=== PATIENT | male | born 1945 | race Caucasian/White ===

== ENCOUNTER → 2017-09-25 | Outpatient (CLI) | payer MEDICARE | END | disposition home or self-care (01) | LOC: LAB 11:49 | PROVIDERS: ATTEND Psychiatry & Neurology Neurology | DX: R41.3 Other amnesia (principal); R79.89 Other specified abnormal findings of blood chemistry | CPT/HCPCS: 80061; 84481 ==

== ENCOUNTER → 2017-10-02 | Outpatient (CLI) | payer MEDICARE ==
--- NOTE | 2017-10-02 16:47 | RAD ---
EXAM: Bilateral knees, 3 views. HISTORY: Pain. COMPARISON: None. FINDINGS: Frontal, lateral and sunrise views of both knees are obtained. There is minimal superior patellar spurring. There is a suspected intra-articular osteophyte arising from the left anterior tibial plateau, best seen on the lateral projection. No significant joint effusion is seen. There is no fracture, dislocation or subluxation. IMPRESSION: 1. Minimal bilateral patellofemoral compartment osteoarthritis and suspected left intra-articular osteophyte projecting from the anterior tibial plateau. 2. No acute osseous finding. Electronically signed by: Sofie Moffett MD (10/02/2017 4:43 PM) [facility]
== END | disposition home or self-care (01) ==
LOC: RAD 16:11
PROVIDERS: ATTEND Orthopaedic Surgery Sports Medicine
DX: M17.0 Bilateral primary osteoarthritis of knee (principal)
CPT/HCPCS: 73562

== ENCOUNTER → 2019-10-01 | Outpatient (CLI) | payer MEDICARE ==
--- NOTE | 2019-10-01 15:25 | CARD ---
MR#: [id number] Date of Study: 10/01/2019 Ordering Physician: MARISOL GARIBAY, Referring Physician: MARISOL GARIBAY, Tech: Zoya Cazares RDCS APPROVED REPORT EXAM: Two-dimensional and M-mode echocardiogram with Doppler and color Doppler. Other Information Quality : Good Rhythm : NSR INDICATION Syncope 2D DIMENSIONS Left Atrium(2D)2.7 (1.6-4.0cm)IVSd0.7 (0.7-1.1cm) Aortic Root(2D)2.0 (2.0-3.7cm)LVDd4.1 (3.9-5.9cm) LVOT Diameter1.6 (1.8-2.4cm)PWd0.7 (0.7-1.1cm) LVDs2.3 (2.5-4.0cm)FS (%) 43.0 % SV54.5 mlLVEF(%)60.0 (>50%) Aortic Valve AoV Peak Von.134.1cm/sAoV VTI22.5cm AO Peak GR.7.2mmHgLVOT Peak Von.120.3cm/s LVOT VTI 21.42cmAO Mean GR.3mmHg OSWALDO (VMAX)1.46nt7REU (VTI)1.89cm2 Mitral Valve MV E Qxlvpaea48.0cm/sMV DECEL NZMA761rm MV A Bltciawn05.6cm/sE/A Ratio0.8 Tricuspid Valve TR P. Uqnltlox596vi/sRAP IZANRXHI2cjPf TR Peak Gr.16xjWtXHWV29wxHs Pulmonary Vein S1 Omahteou80.7cm/sD2 Xvhdlbiv83.9cm/s LEFT VENTRICLE The left ventricle is normal size. There is normal left ventricular wall thickness. The left ventricu lar systolic function is normal and the ejection fraction is within normal range. The Ejection Fracti on is 55-60%. There is normal LV segmental wall motion. Transmitral Doppler flow pattern is Grade I-a bnormal relaxation pattern. RIGHT VENTRICLE The right ventricle is normal size. The right ventricular systolic function is normal. ATRIA The left atrium size is normal. The right atrium size is normal. The interatrial septum is intact wit h no evidence for an atrial septal defect or patent foramen ovale as noted on 2-D or Doppler imaging. AORTIC VALVE The aortic valve is calcified but opens well. Doppler and Color Flow revealed no significant aortic r egurgitation. There is no significant aortic valvular stenosis. MITRAL VALVE The mitral valve is calcified but opens well. Mitral annular calcification is mild. There is no evide nce of mitral valve prolapse. There is no mitral valve stenosis. Doppler and Color-flow revealed mild mitral regurgitation. TRICUSPID VALVE The tricuspid valve is normal in structure and function. Doppler and Color Flow revealed trace to mil d tricuspid regurgitation. The PA pressure was estimated at 27 mmHg. There is no tricuspid valve sten osis. PULMONIC VALVE The pulmonic valve is not well visualized. Doppler and Color Flow revealed trace to mild pulmonic tena vular regurgitation. There is no pulmonic valvular stenosis. GREAT VESSELS The aortic root is normal in size. The ascending aorta is not well seen. The IVC is normal in size an d collapses >50% with inspiration. PERICARDIAL EFFUSION There is no evidence of significant pericardial effusion. Critical Notification Critical Value: No <Conclusion> The left ventricular systolic function is normal and the ejection fraction is within normal range. Th e Ejection Fraction is 55-60%. There is normal LV segmental wall motion. Doppler and Color Flow revealed trace to mild pulmonic valvular regurgitation. Signed by : Chivo Moreno, Electronically Approved : 10/01/2019 15:25:12
--- NOTE | 2019-10-01 15:45 | RAD ---
Clinical Indications: Syncope. Exam : Carotid Duplex with Grayscale Ultrasound and Spectral and Color Doppler Analysis: PQRS Compliance Statement - Stenosis calculations for CT, MR and conventional angiography are based upon measurement of the distal ICA diameter in accordance with the NASCET methodology. Stenosis calculations for carotid ultrasound studies are derived from validated velocity criteria which are known to correlate with the NASCET methodology. Comparison study: None available. Findings: The common, internal and external carotid arteries were examined by grayscale, color and spectral Doppler ultrasound. There is no evidence of atherosclerotic disease or significant stenosis in the visualized vessels. Flow in the left vertebral artery is antegrade and normal. The right vertebral artery was not well visualized. The following are the velocities and ratios in the carotid arteries on both sides: RIGHT ICA PV: 80cm/sec RIGHT CCA PV: 103cm/sec RIGHT ICA ED: 26cm/sec RIGHT IC/CCPV: 0.8 RIGHT VERTEBRAL: antegrade flow RIGHT % STENOSIS: No significant stenosis. LEFT ICA PV: 92cm/sec LEFT CCA PV: 71cm/sec LEFT ICA ED: 20cm/sec LEFT IC/CCPV: 1.2 LEFT VERTEBRAL: antegrade flow LEFT % STENOSIS: No significant stenosis <50% ICA Stenosis: PSV < 125cm/s (EDV < 40cm/s; SVR < 2.0) 50-69% ICA Stenosis: PSV < 125-229cm/s (EDV 40-99cm/s; SVR 2.0-3.9) >70% ICA Stenosis: PSV > 230cm/s (EDV >100cm/s; SVR >4.0) Impression: 1. No carotid dissection or hemodynamically significant stenosis is identified. 2. Likely normal variant low lying bifurcation of the right common carotid artery. 3. Nonvisualized right vertebral artery. Recommend CT angiography of the neck and head in further evaluation. Electronically signed by: Jose Edge MD (10/01/2019 3:42 PM) [id number]
== END | disposition home or self-care (01) ==
LOC: ECHO 14:06
PROVIDERS: ATTEND Family Medicine
DX: I08.8 Other rheumatic multiple valve diseases (principal); R55 Syncope and collapse
CPT/HCPCS: 93306; 93880

== ENCOUNTER 2020-06-05 21:16 | Emergency (ER) | payer MEDICARE ==
[~2020-06-05] VITALS: Ht 165.1 cm; Wt 57.7 kg
--- NOTE | 2020-06-05 21:18 | PHYS DOC ---
General Adult HPI: HPI: ".. He had another one of his spells .. we were watching [employer].. and all sudden he was looking up and off to the Lt. and did not answer me.. he had these before... some times he vomits afterwards... it lasted a few seconds.. we 've seen two different neurologist... they gave a diagnosis of Alzheimer's... And is on 2 meds for it... I does not seem to be helping... He had a diagnosis clinically 2 years ago but had symptoms at least 2 years before that.... He is incontinent of urine and stool.. is getting too much for me the handle ...I need to see if there is any way we can get him placed in a mcfp.;. maybe get up at the hospital in the senior behavioral unit..... On top of all his problems... I have had Covid symptoms since February... I brought him in [facility] to get him admitted to that senior behavioral unit... ( ) Patient is a 75 year old male who presents with above hx and complaints absence episode. Pt. apparently has advanced Alzheimer's. Did not know the season of the year other than that was not summer. Patient does not know the year. Patient does not know the month. Patient cannot count backwards from 25... Patient still knows his name. Does not know his birthday. Knows why he is here for a "episode", but does not know where he is at. No history of dysrhythmia with the absence episode. Patient has no pain complaints. Patient reportedly incontinent of urine and stool chronically.. . No history of trauma. 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 No recent falls. Is still ambulatory. No recent changes in meds. No recent fever or chills. No specific travel or specific ill contacts. 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 has had COVID symptoms since diagnosis in 2019. Pt. follows with Dr. Bruner Review of Systems: Review of Systems: Constitutional: Denies fever or chills Eyes: Denies change in visual acuity HENT: Denies nasal congestion or sore throat Respiratory: Denies cough or shortness of breath Cardiovascular: Denies chest pain or edema GI: Denies abdominal pain, nausea, vomiting, bloody stools or diarrhea : Denies dysuria Musculoskeletal: Denies back pain or joint pain Integument: Denies rash Neurologic: Denies headache, focal weakness or sensory changes . Complains of an absence episode Endocrine: Denies polyuria or polydipsia Lymphatic: Denies swollen glands Psychiatric: Denies depression or anxiety Family History: Family History: Noncontributory to presentation Current Medications: Current Meds: See nursing for home meds Allergies: Allergies: No known drug allergies Physical Exam: PE: Constitutional: no acute distress, chronically ill and appearance. [] HENT: Normocephalic, atraumatic, bilateral external ears normal, oropharynx dry , no oral exudates, nose normal. No temporal artery tenderness Eyes: PERRLA, EOMI, conjunctiva normal, no discharge. [] Neck: Normal range of motion, no tenderness, supple, no stridor. [] No bruits. Cardiovascular: Bradycardia heart rate regular rhythm, no murmur [] p.m. eyes slightly to the left Lungs & Thorax: Bilateral breath sounds equal at apex on auscultation [] Abdomen: Bowel sounds normal, soft, no tenderness, no masses, no pulsatile masses. Has a diaper incontinence of urine and stool Skin: Warm, dry, no erythema, no rash. Poor turgor Back: No tenderness, no CVA tenderness. Mild kyphosis Extremities: No tenderness, no cyanosis, no clubbing, ROM intact, no edema. Arthritic changes. No cording appreciated. Few chacha point contusion knees.. Neurologic: Alert and oriented name, recognizes his , moves all extremities on request, has distal sensory, no focal deficits noted. Hyperreflexia at brachial and patella +3 with 2 beat clonus. Right hand dominant. Is ambulatory independently with patient slight shuffling gait. Psychologic: Affect normal, judgement obviously impaired, obvious memory loss,, mood pleasant EKG: EKG: My interpretation of EKG shows a sinus rhythm at 58 bpm. Left axis. Fascicular block. But no findings acute STEMI with contralateral changes. [] Radiology/Procedures: Radiology/Procedures: [address] [address] IMAGING REPORT Signed PATIENT: SABIHA CHOUDHARY ACCOUNT: [id number] : 1945 LOCATION: ER AGE: 75 SEX: M EXAM STATUS: PRE ER ORD. PHYSICIAN: LON FITZPATRICK MD REASON: syncope PROCEDURE: PORTABLE CHEST 1V Exam: Chest one view INDICATION: Syncope TECHNIQUE: Dental view of the chest Comparisons: None FINDINGS: The cardiomediastinal silhouette and pulmonary vessels are within normal limits. The lung and pleural spaces are clear. IMPRESSION: No acute cardiopulmonary process. Electronically signed by: Annie Chávez MD (06/05/2020 10:08 PM) [facility] DICTATED AND SIGNED BY: ANNIE CHÁVEZ MD DATE: 06/05/202207 CC: MARISOL BRUNER MD; LON FITZPATRICK MD ~MTH0 0 [][address] [address] IMAGING REPORT Signed PATIENT: SABIHA CHOUDHARY ACCOUNT: [id number] : 1945 LOCATION: ER AGE: 75 SEX: M EXAM STATUS: PRE ER ORD. PHYSICIAN: LON FITZPATRICK MD REASON: syncope PROCEDURE: CT HEAD WO CONTRAST Exam: CT head INDICATION: Syncope TECHNIQUE: Sequential axial images through the head were obtained without the administration of IV contrast. Comparisons: None FINDINGS: No focal parenchymal lesion or hemorrhage is identified. There is no midline shift or sulcal effacement. Mild patchy hypodensity in the periventricular white matter. No acute vascular territory infarction is identified. Acevedo-white distinction is preserved. The ventricular system is within normal limits without compression hydrocephalus. The basal cisterns are well maintained. The visualized portions of the paranasal sinuses and mastoid air cells are well- pneumatized. No acute fractures. IMPRESSION: Mild small vessel ischemic change, technically age indeterminate without recent prior imaging. Exposure: One or more of the following in the visualized dose reduction techniques were utilized for this examination: 1. Automated exposure control 2. Adjustment of the MA and/or KV according to patient size Use of iterative of reconstructive technique Electronically signed by: Annie Chávez MD (06/05/2020 10:08 PM) [facility] DICTATED AND SIGNED BY: ANNIE CHÁVEZ MD DATE: 06/05/202205 CC: MARISOL BRUNER MD; LON FITZPATRICK MD ~MTH0 0 Heart Score: HEART Score for Chest Pain: HEART Score for Chest Pain Response (Comments) Value History Slighlty/Non-Suspicious 0 ECG Normal 0 Age > 65 2 Risk Factors 1 or 2 Risk Factors 1 Troponin < Normal Limit 0 Total 3 Risk Factors: Risk Factors: DM, Current or recent (<one month) smoker, HTN, HLP, family history of CAD, obesity. Risk Scores: Score 0 - 3: 2.5% MACE over next 6 weeks - Discharge Home Score 4 - 6: 20.3% MACE over next 6 weeks - Admit for Clinical Observation Score 7 - 10: 72.7% MACE over next 6 weeks - Early Invasive Strategies Course & Med Decision Making: Course & Med Decision Making Pertinent Labs and Imaging studies reviewed. (See chart for details) Recommend increase fluid intake and vitamins C drinks. Take Cipro 500 mg twice a day. Follow-up urine cultures. Review ED work-up with primary care. Consider obtaining additional home help or consider mcfp placement care if demands of patient's care to great.. Impression: 1. Absence seizures 2. Mild leukocytosis 12.9 3. Mild anemia 11.3 hemoglobin 4. Mild dehydration elevated creatinine 1.6 5. Urinary tract infection 6. Advanced Alzheimer's-by history 7. Mild elevation D-dimer 0.74 [] Margaret Disclaimer: Margaret Disclaimer: This electronic medical record was generated, in whole or in part, using a voice recognition dictation system. Departure Departure: Referrals: MARISOL BRUNER MD (PCP) Scripts Ondansetron Hcl (ZOFRAN) 4 Mg Tablet 8 MG PO QIDPRN PRN for NAUSEA/VOMITING, #1 TAB Prov: LON FITZPATRICK MD 06/06/20 Famotidine (PEPCID) 20 Mg Tablet 20 MG PO QIDPRN PRN for nv, #30 TAB Prov: LON FITZPATRICK MD 06/06/20 Ciprofloxacin Hcl (CIPRO) 500 Mg Tablet 500 MG PO BID for UTI for 7 Days, #14 TAB Prov: LON FITZPATRICK MD 06/06/20 Dragon Disclaimer This chart was dictated in whole or in part using Voice Recognition software in a busy, high-work load, and often noisy Emergency Department environment. It may contain unintended and wholly unrecognized errors or omissions. Dragon Disclaimer This chart was dictated in whole or in part using Voice Recognition software in a busy, high-work load, and often noisy Emergency Department environment. It may contain unintended and wholly unrecognized errors or omissions. LON FITZPATRICK MD Jun 05, 2020 21:18
[2020-06-05] MEDS ORDERED: IV RINGERS SOLUTION,LACTATED 1,000 ML IV SCH (21:30)
--- NOTE | 2020-06-05 22:10 | RAD ---
Exam: CT head INDICATION: Syncope TECHNIQUE: Sequential axial images through the head were obtained without the administration of IV co ntrast. Comparisons: None FINDINGS: No focal parenchymal lesion or hemorrhage is identified. There is no midline shift or sulcal effaceme nt. Mild patchy hypodensity in the periventricular white matter. No acute vascular territory infarction i s identified. Acevedo-white distinction is preserved. The ventricular system is within normal limits without compression hydrocephalus. The basal cisterns are well maintained. The visualized portions of the paranasal sinuses and mastoid air cells are well-pneumatized. No acute fractures. IMPRESSION: Mild small vessel ischemic change, technically age indeterminate without recent prior imaging. Exposure: One or more of the following in the visualized dose reduction techniques were utilized for this examination: 1. Automated exposure control 2. Adjustment of the MA and/or KV according to patient size Use of iterative of reconstructive technique Electronically signed by: Annie Medina MD (06/05/2020 10:08 PM) [facility]
--- NOTE | 2020-06-05 22:11 | RAD ---
Exam: Chest one view INDICATION: Syncope TECHNIQUE: Dental view of the chest Comparisons: None FINDINGS: The cardiomediastinal silhouette and pulmonary vessels are within normal limits. The lung and pleural spaces are clear. IMPRESSION: No acute cardiopulmonary process. Electronically signed by: Annie Medina MD (06/05/2020 10:08 PM) [facility]
[2020-06-05 22:40] LABS: BASO # 0.1 x10^3/uL (0.0-0.2); BASO % 0 % (0-3); EOS # 0.1 x10^3/uL (0.0-0.7); EOS % 0 % (0-3); HEMATOCRIT 34.7 % (39.0-53.0); HEMOGLOBIN 11.3 g/dL (13.0-17.5); LYMPH # 0.7 x10^3/uL (1.0-4.8); LYMPH % 6 % (24-48); MEAN CORPUSCULAR HEMOGLOBIN 30 pg (25-35); MEAN CORPUSCULAR HGB CONC 33 g/dL (31-37); MEAN CORPUSCULAR VOLUME 93 fL (79-100); MONO # 0.5 x10^3/uL (0.0-1.1); MONO % 4 % (0-9); NEUT # 11.5 x10^3uL (1.8-7.7); NEUT % 89 % (31-73); PLATELET COUNT 296 x10^3/uL (140-400); RED BLOOD COUNT 3.73 x10^6/uL (4.30-5.70); RED CELL DISTRIBUTION WIDTH 14.4 % (11.5-14.5); WHITE BLOOD COUNT 12.9 x10^3/uL (4.0-11.0)
[2020-06-05 22:50] LABS: BACTERIA,URINE FEW /HPF (0-FEW); BILIRUBIN,URINE NEG (NEG); CLARITY,URINE CLEAR; COLOR,URINE YELLOW; GLUCOSE,URINE NEG (NEG); NITRITE,URINE NEG (NEG); RBC,URINE OCC /HPF (0-2); SQUAMOUS EPITHELIAL CELL,UR FEW /LPF
[2020-06-05 22:57] LABS: BARBITURATES NEG (NEG); BENZODIAZEPINES NEG (NEG); CANNABINOIDS NEG (NEG); COCAINE NEG (NEG); METHADONE NEG (NEG); OPIATES NEG (NEG); PHENCYCLIDINE NEG (NEG)
[2020-06-05 22:58] LABS: ANION GAP 8 (6-14); BLOOD UREA NITROGEN 26 mg/dL (8-26); CALCIUM 8.7 mg/dL (8.5-10.1); CARBON DIOXIDE 30 mmol/L (21-32); CHLORIDE 103 mmol/L (98-107); CREATININE 1.6 mg/dL (0.7-1.3); GFR 42.6; GLUCOSE 92 mg/dL (70-99); POTASSIUM 4.5 mmol/L (3.5-5.1); SODIUM 141 mmol/L (136-145)
[2020-06-05 23:03] LABS: AMPHETAMINE/METHAMPHETAMINE NEG (NEG)
[2020-06-05 23:16] LABS: ALBUMIN 3.4 g/dL (3.4-5.0); ALK PHOS 95 U/L (46-116); ALT (SGPT) 32 U/L (16-63); AST (SGOT) 21 U/L (15-37); C REACTIVE PROTEIN 7.4 mg/L (0-3.3); DIRECT BILIRUBIN 0.3 mg/dL (0.0-0.2); LIPASE 163 U/L (73-393); TOTAL PROTEIN 7.1 g/dL (6.4-8.2)
--- NOTE | 2020-06-05 23:26 | EKG ---
[address] [address] Test Date: 2020-06-05 Test Time: 22:21:23 Pat Name: SABIHA CHOUDHARY Department: Room: Gender: M Disabilities Caregiver: : 1945 Requested By: LON FITZPATRICK Order Number: [id number] Reading MD: Measurements Intervals [place] Rate: 58 P: 45 WI: 186 QRS: -49 QRSD: 94 T: 55 QT: 428 QTc: 424 Interpretive Statements SINUS RHYTHM ABNORMAL LEFT AXIS DEVIATION LEFT ANTERIOR FASCICULAR BLOCK ABNORMAL ECG RI6.01 No previous ECG available for comparison
[2020-06-06] MEDS ORDERED: CIPR500T94 PO (00:08)
[2020-06-06 00:30] VITALS: BP 150/64
[2020-06-06] MEDS ORDERED: FAMO-63 PO (00:58)
[2020-06-06] MEDS ORDERED: ONDA4TAB7 PO (00:59)
[2020-06-06] MEDS ORDERED: ONDANSETRON ODT 4 MG TAB.RAPDIS PO ONE (01:00)
[2020-06-06] MEDS ORDERED: ONDANSETRON ODT 4 MG TAB.RAPDIS PO PRN (01:00)
[2020-06-06] MEDS ORDERED: CIPROFLOXACIN HCL 500 MG TABLET PO ONE (01:00)
== END 2020-06-06 01:00 | disposition home or self-care (01) ==
LOC: ER 21:16
DX: N39.0 Urinary tract infection, site not specified (principal); G40.A09 Absence epileptic syndrome, not intractable, without status epilepticus; D72.829 Elevated white blood cell count, unspecified; E86.0 Dehydration; R79.89 Other specified abnormal findings of blood chemistry; D64.9 Anemia, unspecified
CPT/HCPCS: 36415; 70450; 71045; 80048; 80076; 80307; 81001; 82553; 83690; 83735; 83880; 84443; 84484; 85025; 85379; 85610; 85730; 86140; 87077; 87086; 87186; 93005; 96360; 99285; J7120; Q0162

== ENCOUNTER 2020-08-21 19:21 | Inpatient (IN) | payer MEDICARE ==
[~2020-08-21] VITALS: Ht 165.1 cm; Wt 55.0 kg
[~2020-08-21 19:21] MED LIST: CIPR500T94 PO; FAMO-63 PO; ONDA4TAB7 PO
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
[2020-08-21] MEDS ORDERED: TETANUS AND DIPHTHERIA TOX/PF 0.5 ML VIAL. VAX IM ONE (20:15)
[2020-08-21] MEDS ORDERED: IV RINGERS SOLUTION,LACTATED 1,000 ML IV SCH (20:15)
[2020-08-21 20:22] LABS: BASO # 0.1 x10^3/uL (0.0-0.2); BASO % 1 % (0-3); EOS % 0 % (0-3); HEMATOCRIT 36.1 % (39.0-53.0); HEMOGLOBIN 12.1 g/dL (13.0-17.5); LYMPH # 0.7 x10^3/uL (1.0-4.8); LYMPH % 7 % (24-48); MEAN CORPUSCULAR HEMOGLOBIN 31 pg (25-35); MEAN CORPUSCULAR HGB CONC 34 g/dL (31-37); MEAN CORPUSCULAR VOLUME 92 fL (79-100); MONO # 0.5 x10^3/uL (0.0-1.1); MONO % 5 % (0-9); NEUT # 9.4 x10^3uL (1.8-7.7); NEUT % 88 % (31-73); PLATELET COUNT 248 x10^3/uL (140-400); RED BLOOD COUNT 3.92 x10^6/uL (4.30-5.70); RED CELL DISTRIBUTION WIDTH 13.6 % (11.5-14.5); WHITE BLOOD COUNT 10.7 x10^3/uL (4.0-11.0)
[2020-08-21 20:24] LABS: BARBITURATES NEG (NEG); BENZODIAZEPINES NEG (NEG); CANNABINOIDS NEG (NEG); COCAINE NEG (NEG); METHADONE NEG (NEG); OPIATES NEG (NEG); PHENCYCLIDINE NEG (NEG)
[2020-08-21 20:28] LABS: AMPHETAMINE/METHAMPHETAMINE NEG (NEG)
[2020-08-21 20:32] LABS: CALCIUM 8.9 mg/dL (8.5-10.1); CREATININE 1.7 mg/dL (0.7-1.3); GFR 39.7
[2020-08-21 20:35] LABS: BACTERIA,URINE 0 /HPF (0-FEW); BILIRUBIN,URINE NEG (NEG); CLARITY,URINE CLEAR; COLOR,URINE YELLOW; GLUCOSE,URINE NEG (NEG); NITRITE,URINE NEG (NEG); SQUAMOUS EPITHELIAL CELL,UR MOD /LPF
--- NOTE | 2020-08-21 20:38 | EKG ---
[facility] [address] [place] [address] Test Date: 2020-08-21 Test Time: 20:24:15 Pat Name: SABIHA CHOUDHARY Department: Room: Gender: M Technical Customer Support Specialist: MICHAEL : 1945 Requested By: LON FITZPATRICK Order Number: [id number] Reading MD: Measurements Intervals [place] Rate: 79 P: 24 WV: 190 QRS: -66 QRSD: 92 T: 42 QT: 380 QTc: 437 Interpretive Statements SINUS RHYTHM ABNORMAL LEFT AXIS DEVIATION R-S TRANSITION ZONE IN V LEADS DISPLACED TO THE LEFT S1,S2,S3 PATTERN LEFT ANTERIOR FASCICULAR BLOCK ABNORMAL ECG RI6.02 No previous ECG available for comparison
[2020-08-21 20:43] LABS: ALBUMIN 3.4 g/dL (3.4-5.0); DIRECT BILIRUBIN 0.3 mg/dL (0.0-0.2); TOTAL BILIRUBIN 1.1 mg/dL (0.2-1.0); TOTAL PROTEIN 6.5 g/dL (6.4-8.2)
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
[2020-08-21] MEDS ORDERED: DIPH,PERTUSS(ACELL),TET VAC/PF 0.5 ML SYRINGE. VAX IM ONE (21:30)
[2020-08-21] MEDS: MUPIROCIN 2% TOPICAL OINTMENT 22GM TUBE. TP SCH (22:13)
[2020-08-22] MEDS ORDERED: BACITRACIN ZINC TOPICAL OINT PACKET. TP ONE (01:00)
[2020-08-22] MEDS ORDERED: ACETAMINOPHEN 325 MG TABLET PO PRN (01:00)
[2020-08-22 01:38] VITALS: BP 118/73
[2020-08-22 05:40] VITALS: BP 110/71
[2020-08-22] MEDS: MUPIROCIN 2% TOPICAL OINTMENT 22GM TUBE. TP SCH ×2 (09:00→21:00)
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
[2020-08-22 10:57] VITALS: BP 90/56
[2020-08-22 15:30] VITALS: BP 91/55
[2020-08-22] MEDS ORDERED: CETI10TA16 PO (16:11)
[2020-08-22] MEDS ORDERED: LISI20TA18 PO (16:11)
[2020-08-22] MEDS ORDERED: MEMA10TA PO (16:11)
[2020-08-22] MEDS ORDERED: LANS15CA78 PO (16:11)
[2020-08-22] MEDS ORDERED: FLUO20CA20 PO (16:11)
[2020-08-22] MEDS ORDERED: OMEG-117 PO (16:15)
[2020-08-22] MEDS ORDERED: DONE23TA PO (16:15)
[2020-08-22] MEDS ORDERED: ASPI-630 PO (16:15)
[2020-08-22] MEDS ORDERED: ATOR40TA59 PO (16:15)
[2020-08-22] MEDS ORDERED: MULT-246 PO (16:15)
[2020-08-22 19:00] VITALS: BP 111/70
[2020-08-22] MEDS: MEMANTINE 10 MG TABLET. PO SCH (21:35)
[2020-08-22] MEDS: DONEPEZIL 23 MG TABLET PO SCH (21:35)
[2020-08-22] MEDS: ATORVASTATIN CALCIUM 20 MG TABLET PO SCH (21:35)
[2020-08-22 22:36] VITALS: BP 120/72
[2020-08-23] MEDS: LORazepam 1 MG TABLET PO PRN ×2 (00:52→20:47)
[2020-08-23 06:13] VITALS: BP 144/84
[2020-08-23] MEDS: FLUoxetine HCL 20 MG CAPSULE PO SCH (08:02)
[2020-08-23] MEDS: MULTIVITAMIN with MINERAL TABLET. PO SCH (08:02)
[2020-08-23] MEDS: ASPIRIN CHEWABLE 81 MG TABLET. PO SCH (08:02)
[2020-08-23] MEDS: MEMANTINE 10 MG TABLET. PO SCH (08:02)
[2020-08-23] MEDS: PANTOPRAZOLE 40 MG TABLET. PO SCH (08:07)
[2020-08-23] MEDS ORDERED: LISINOPRIL 20 MG TABLET PO SCH (09:00)
[2020-08-23] MEDS: MUPIROCIN 2% TOPICAL OINTMENT 22GM TUBE. TP SCH ×2 (09:00→20:47)
[2020-08-23 10:54] VITALS: BP 105/69
[2020-08-23 15:21] VITALS: BP 86/51
[2020-08-23 16:43] VITALS: BP 101/62
[2020-08-23 19:25] VITALS: BP 93/56
[2020-08-23] MEDS: DONEPEZIL 23 MG TABLET PO SCH (20:47)
[2020-08-23] MEDS: ATORVASTATIN CALCIUM 20 MG TABLET PO SCH (20:47)
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
[2020-08-24 07:39] VITALS: BP 115/84
[2020-08-24] MEDS: MUPIROCIN 2% TOPICAL OINTMENT 22GM TUBE. TP SCH (09:00)
[2020-08-24] MEDS: FLUoxetine HCL 20 MG CAPSULE PO SCH (10:18)
[2020-08-24] MEDS: ASPIRIN CHEWABLE 81 MG TABLET. PO SCH (10:18)
[2020-08-24] MEDS: MULTIVITAMIN with MINERAL TABLET. PO SCH (10:18)
[2020-08-24] MEDS: PANTOPRAZOLE 40 MG TABLET. PO SCH (10:18)
[2020-08-24 14:54] VITALS: BP 105/71
[2020-08-24 16:15] LABS: CALCIUM 8.1 mg/dL (8.5-10.1); CREATININE 1.4 mg/dL (0.7-1.3); GFR 49.7; POTASSIUM 3.6 mmol/L (3.5-5.1)
[2020-08-24] MEDS ORDERED: MUPI15CR8 TP (18:37)
[2020-08-24] MEDS ORDERED: LORA-254 PO (18:37)
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
== END 2020-08-24 16:35 | DRG 682 ==
LOC: ER 19:21 → 1 SOUTH 08-22 01:26 → OBSVTOIN 08-23 10:17
PROVIDERS: ADMIT Hospitalist; ATTEND Hospitalist
DX: N17.0 Acute kidney failure with tubular necrosis (principal); E43 Unspecified severe protein-calorie malnutrition; R64 Cachexia; G30.9 Alzheimer's disease, unspecified; F32.9 Major depressive disorder, single episode, unspecified; F41.9 Anxiety disorder, unspecified; G89.29 Other chronic pain; M19.90 Unspecified osteoarthritis, unspecified site; Z20.822 Contact with and (suspected) exposure to COVID-19; M54.5 Low back pain; F02.80 Dementia in other diseases classified elsewhere, unspecified severity, without behavioral disturbance, psychotic disturbance, mood disturbance, and anxiety; D64.9 Anemia, unspecified; R15.9 Full incontinence of feces; R32 Unspecified urinary incontinence; E78.5 Hyperlipidemia, unspecified; Z85.46 Personal history of malignant neoplasm of prostate; Z68.20 Body mass index [BMI] 20.0-20.9, adult
CPT/HCPCS: 36415; 70450; 71045; 72125; 80048; 80076; 80307; 81001; 82550; 83690; 83735; 83880; 84443; 84484; 85025; 85610; 85730; 87426; 90471; 90715; 93005; 96360; 96361; 96372; G0378; G0379; J2060; J7120; U0003; 99285-25

== ENCOUNTER 2020-08-24 15:15 | Inpatient (IN) | payer MEDICARE, OTHER ==
[~2020-08-24] VITALS: Ht 175.3 cm; Wt 64.1 kg
[~2020-08-24 15:15] MED LIST changes: +ASPI-630 PO; +ATOR40TA59 PO; +CETI10TA16 PO; +DONE23TA PO; +FLUO20CA20 PO; +LANS15CA73 PO; +LISI20TA18 PO; +MEMA10TA PO; +MULT-246 PO; +OMEG-117 PO
[2020-08-24] MEDS ORDERED: MAGNESIUM HYDROXIDE 2,400 MG/30 ML ORAL.SUSP. PO PRN (18:15)
[2020-08-24] MEDS ORDERED: MAG HYDROX/AL HYDROX/SIMETH 30 ML ORAL.SUSP PO PRN (18:15)
[2020-08-24] MEDS ORDERED: METHYL SALICYLATE/MENTHOL TOPICAL OINTMENT 57GM TUBE. TP PRN (18:15)
[2020-08-24 18:29] VITALS: BP 113/70
[2020-08-24] MEDS ORDERED: LORA-254 PO (18:37)
[2020-08-24] MEDS ORDERED: MUPI15CR8 TP (18:37)
[2020-08-24] MEDS: DONEPEZIL 23 MG TABLET PO SCH (21:15)
[2020-08-24] MEDS: ATORVASTATIN CALCIUM 20 MG TABLET PO SCH (21:15)
--- NOTE | 2020-08-24 21:50 | PDOC ---
Exam Note: Fercho Note: Please also refer to the separate dictated note~for this date of service dictated separately.~Patient seen individually. Discussed the patient with Nursing staff reviewed the chart.~Reviewed interim history and current functioning. Reviewed vital signs,~Labs/ Radiology~and current medications noted below. Continue current treatment with the changes noted in the dictated addendum note Assessment: Vital Signs/I&O: Vital Signs Date Time Temp Pulse Resp B/P (MAP) Pulse Ox O2 Delivery O2 Flow Rate FiO2 08/24/20 18:29 98.0 71 18 113/70 (84) 99 Labs: Laboratory Tests Test 08/24/20 19:46 D-Dimer (Duyen) 0.49 mg/L (0.00-0.50) Current Medications: Meds: Current Medications Medications (Trade) Dose Ordered Sig/Ashvin Route PRN Reason Start Time Stop Time Status Last Admin Dose Admin Donepezil HCl (Aricept) 23 mg QHS PO 08/24/20 21:00 08/24/20 21:15 Atorvastatin Calcium (Lipitor) 40 mg QHS PO 08/24/20 21:00 08/24/20 21:15 I have reviewed the current psychotropics carefully including drug interactions. Risk benefit ratio favors no change other than as noted in my dictated progress note. Diagnosis: Problems: (1) Major neurocognitive disorder (2) Dementia in Alzheimer's disease with delusions (3) Dementia in Alzheimer's disease with depression (4) Dementia of the Alzheimer's type with early onset with behavioral disturbance (5) Dementia, vascular, with delusions (6) Dementia, vascular, with depression (7) Anxiety disorder, unspecified (8) Impulse control disorder, unspecified VERENA AGUSTIN MD August 24, 2020 21:50
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
[2020-08-25 06:28] VITALS: BP 140/79
[2020-08-25] MEDS: OMEGA-3 FATTY ACIDS/FISH OIL 1,000 MG CAPSULE. PO SCH (08:36)
[2020-08-25] MEDS: MULTIVITAMIN with MINERAL TABLET. PO SCH (08:37)
[2020-08-25] MEDS: CETIRIZINE HCL 10 MG TABLET PO SCH (08:37)
[2020-08-25] MEDS: ASPIRIN CHEWABLE 81 MG TABLET. PO SCH (08:37)
[2020-08-25] MEDS: PANTOPRAZOLE 40 MG TABLET. PO SCH (08:37)
[2020-08-25] MEDS: MUPIROCIN 2% TOPICAL OINTMENT 22GM TUBE. TP SCH ×2 (09:00→14:00)
--- NOTE | 2020-08-25 10:54 | EKG ---
[address] [address] Test Date: 2020-08-25 Test Time: 10:22:11 Pat Name: SABIHA CHOUDHARY Department: Room: [address] [place] [address] Gender: M Medical Billing Coordinator: : 1945 Requested By: VERENA AGUSTIN Order Number: [id number] Reading MD: Measurements Intervals [place] Rate: 63 P: 45 MT: 184 QRS: -61 QRSD: 90 T: 49 QT: 416 QTc: 429 Interpretive Statements SINUS RHYTHM ABNORMAL LEFT AXIS DEVIATION LEFT ANTERIOR FASCICULAR BLOCK ABNORMAL ECG RI6.01 No previous ECG available for comparison
[2020-08-25 15:42] VITALS: BP 112/73
[2020-08-25] MEDS: ATORVASTATIN CALCIUM 20 MG TABLET PO SCH (20:40)
[2020-08-25] MEDS: DONEPEZIL 23 MG TABLET PO SCH (20:40)
[2020-08-25 21:07] LABS: THYROXINE 6.5 ug/dL (4.5-12.0)
[2020-08-26 02:08] LABS: HEMOGLOBIN A1C 5.4 % (4.8-5.6)
[2020-08-26 05:51] VITALS: BP 114/71
--- NOTE | 2020-08-26 07:38 | PDOC ---
Exam Note: Fercho Note: This note is a late entry for 08/25/2020 covers elements not covered in my initial note. Subjective: The patient was reviewed in the morning of 08/25/2020 for a treatment team meeting with Niecy Naqvi, Indy Nava and Ingris (licensed clinical social worker), Ingrid, activity therapy and Tala RN, discussed and reviewed the chart. The patient slept 5-1/2 hours previous night. Nursing staff have noticed some abrasions on his body and we will check with the patients about her history. Attended treatment team meeting with the entire team in the morning. Discussed with May ABREU in the evening. He remains confused. Reportedly he had followed with Dr. Bagley outpatient for neurological care and we will consult Dr. Bagley to continue follow up here. Review of Systems: No CV, , pulmonary, ENT system symptoms on review. Reliability poor. Mental Status Exam: The patient is oriented to himself. Insight and judgment, recent and remote memory, attention and concentration fund of knowledge is poor consistent with his diagnoses. Laboratory Data: Reviewed. Impression: Major neurocognitive disorder Alzheimer vascular with delusion, depression, behavioral disturbance. Anxiety disorder unspecified. Impulse control disorder unspecified. Plan: Continue patients current psychotropics. Consider Depakote as a mood stabilizer. Make further adjustments as clinically indicated. Assessment: Vital Signs/I&O: Vital Signs Date Time Temp Pulse Resp B/P (MAP) Pulse Ox O2 Delivery O2 Flow Rate FiO2 08/26/20 05:51 97.6 78 18 114/71 (85) 99 08/25/20 15:42 Room Air I & O 08/25/20 08/25/20 08/26/20 15:00 23:00 07:00 Intake Total 460 ml 360 ml Output Total 1 ml Balance 460 ml 359 ml Current Medications: Meds: Current Medications Medications (Trade) Dose Ordered Sig/Ashvin Route PRN Reason Start Time Stop Time Status Last Admin Dose Admin Acetaminophen (Tylenol) 650 mg PRN Q6HRS PRN PO MILD PAIN / TEMP > 100.3'F 08/24/20 18:15 Multi-Ingredient Ointment (Analgesic [place]) 1 césar PRN QID PRN TP MUSCLE PAIN 08/24/20 18:15 Al Hydroxide/Mg Hydroxide (Mylanta Plus Xs) 15 ml PRN AFTMEALHC PRN PO DYSPEPSIA 08/24/20 18:15 Magnesium Hydroxide (Milk Of Magnesia) 2,400 mg PRN QHS PRN PO CONSTIPATION 08/24/20 18:15 Aspirin (Aspirin Chewable) 81 mg DAILY PO 08/25/20 09:00 08/25/20 08:37 Cetirizine HCl (ZyrTEC) 10 mg DAILY08 PO 08/25/20 08:00 08/25/20 08:37 Donepezil HCl (Aricept) 23 mg QHS PO 08/24/20 21:00 08/25/20 20:40 Fluoxetine HCl (PROzac) 20 mg DAILY PO 08/25/20 09:00 08/25/20 08:37 Lorazepam (Ativan) 1 mg PRN Q4HRS PRN PO ANXIETY / AGITATION 08/24/20 18:45 Atorvastatin Calcium (Lipitor) 40 mg QHS PO 08/24/20 21:00 08/25/20 20:40 Pantoprazole Sodium (Protonix) 40 mg DAILY08 PO 08/25/20 08:00 08/25/20 08:37 Multivitamins/ Calcium (Thera-M Plus) 1 tab DAILY PO 08/25/20 09:00 08/25/20 08:37 Mupirocin (Bactroban) 1 césar BID92 TP 08/25/20 09:00 08/25/20 14:00 Fish Oil (Fish Oil) 1,000 mg DAILY PO 08/25/20 09:00 08/25/20 08:36 Olanzapine (ZyPREXA ZYDIS) 2.5 mg PRN Q2HR PRN PO PSYCHOSIS 08/24/20 19:45 Sertraline HCl (Zoloft) 25 mg DAILY PO 08/26/20 09:00 08/28/20 21:00 Sertraline HCl (Zoloft) 50 mg DAILY PO 08/29/20 09:00 Current Medications Medications (Trade) Dose Ordered Sig/Ashvin Route PRN Reason Start Time Stop Time Status Last Admin Dose Admin Acetaminophen (Tylenol) 650 mg PRN Q6HRS PRN PO MILD PAIN / TEMP > 100.3'F 08/24/20 18:15 Multi-Ingredient Ointment (Analgesic [place]) 1 césar PRN QID PRN TP MUSCLE PAIN 08/24/20 18:15 Al Hydroxide/Mg Hydroxide (Mylanta Plus Xs) 15 ml PRN AFTMEALHC PRN PO DYSPEPSIA 08/24/20 18:15 Magnesium Hydroxide (Milk Of Magnesia) 2,400 mg PRN QHS PRN PO CONSTIPATION 08/24/20 18:15 Aspirin (Aspirin Chewable) 81 mg DAILY PO 08/25/20 09:00 08/25/20 08:37 Cetirizine HCl (ZyrTEC) 10 mg DAILY08 PO 08/25/20 08:00 08/25/20 08:37 Donepezil HCl (Aricept) 23 mg QHS PO 08/24/20 21:00 08/25/20 20:40 Fluoxetine HCl (PROzac) 20 mg DAILY PO 08/25/20 09:00 08/25/20 08:37 Lorazepam (Ativan) 1 mg PRN Q4HRS PRN PO ANXIETY / AGITATION 08/24/20 18:45 Atorvastatin Calcium (Lipitor) 40 mg QHS PO 08/24/20 21:00 08/25/20 20:40 Pantoprazole Sodium (Protonix) 40 mg DAILY08 PO 08/25/20 08:00 08/25/20 08:37 Multivitamins/ Calcium (Thera-M Plus) 1 tab DAILY PO 08/25/20 09:00 08/25/20 08:37 Mupirocin (Bactroban) 1 césar BID92 TP 08/25/20 09:00 08/25/20 14:00 Fish Oil (Fish Oil) 1,000 mg DAILY PO 08/25/20 09:00 08/25/20 08:36 Olanzapine (ZyPREXA ZYDIS) 2.5 mg PRN Q2HR PRN PO PSYCHOSIS 08/24/20 19:45 Sertraline HCl (Zoloft) 25 mg DAILY PO 08/26/20 09:00 08/28/20 21:00 Sertraline HCl (Zoloft) 50 mg DAILY PO 08/29/20 09:00 Current Medications Medications (Trade) Dose Ordered Sig/Ashvin Route PRN Reason Start Time Stop Time Status Last Admin Dose Admin Aspirin (Aspirin Chewable) 81 mg DAILY PO 08/25/20 09:00 08/25/20 08:37 Cetirizine HCl (ZyrTEC) 10 mg DAILY08 PO 08/25/20 08:00 08/25/20 08:37 Fluoxetine HCl (PROzac) 20 mg DAILY PO 08/25/20 09:00 08/25/20 08:37 Pantoprazole Sodium (Protonix) 40 mg DAILY08 PO 08/25/20 08:00 08/25/20 08:37 Multivitamins/ Calcium (Thera-M Plus) 1 tab DAILY PO 08/25/20 09:00 08/25/20 08:37 Mupirocin (Bactroban) 1 césar BID92 TP 08/25/20 09:00 08/25/20 14:00 Fish Oil (Fish Oil) 1,000 mg DAILY PO 08/25/20 09:00 08/25/20 08:36 I have reviewed the current psychotropics carefully including drug interactions. Risk benefit ratio favors no change other than as noted in my dictated progress note. Diagnosis: Problems: (1) Impulse control disorder, unspecified (2) Anxiety disorder, unspecified (3) Dementia, vascular, with depression (4) Dementia, vascular, with delusions (5) Dementia in Alzheimer's disease with depression (6) Dementia in Alzheimer's disease with delusions (7) Dementia of the Alzheimer's type with early onset with behavioral disturbance (8) Major neurocognitive disorder VERENA AGUSTIN MD August 26, 2020 07:38
[2020-08-26] MEDS: MULTIVITAMIN with MINERAL TABLET. PO SCH (08:40)
[2020-08-26] MEDS: MUPIROCIN 2% TOPICAL OINTMENT 22GM TUBE. TP SCH ×2 (08:40→13:42)
[2020-08-26] MEDS: SERTRALINE 25 MG TABLET. PO SCH (08:40)
[2020-08-26] MEDS: ASPIRIN CHEWABLE 81 MG TABLET. PO SCH (08:40)
[2020-08-26] MEDS: CETIRIZINE HCL 10 MG TABLET PO SCH (08:40)
[2020-08-26] MEDS: OMEGA-3 FATTY ACIDS/FISH OIL 1,000 MG CAPSULE. PO SCH (08:40)
[2020-08-26] MEDS: PANTOPRAZOLE 40 MG TABLET. PO SCH (08:40)
[2020-08-26 15:49] VITALS: BP 105/69
[2020-08-26] MEDS: DONEPEZIL 23 MG TABLET PO SCH (20:21)
[2020-08-26] MEDS: ATORVASTATIN CALCIUM 20 MG TABLET PO SCH (20:22)
--- NOTE | 2020-08-26 21:47 | PDOC ---
Exam Note: Fercho Note: Please also refer to the separate dictated note~for this date of service dictated separately.~Patient seen individually. Discussed the patient with Nursing staff reviewed the chart.~Reviewed interim history and current functioning. Reviewed vital signs,~Labs/ Radiology~and current medications noted below. Continue current treatment with the changes noted in the dictated addendum note Assessment: Vital Signs/I&O: Vital Signs Date Time Temp Pulse Resp B/P (MAP) Pulse Ox O2 Delivery O2 Flow Rate FiO2 08/26/20 15:49 98.0 75 18 105/69 (81) 93 08/25/20 15:42 Room Air I & O 08/25/20 08/25/20 08/26/20 15:00 23:00 07:00 Intake Total 460 ml 360 ml Output Total 1 ml Balance 460 ml 359 ml Current Medications: Meds: Current Medications Medications (Trade) Dose Ordered Sig/Ashvin Route PRN Reason Start Time Stop Time Status Last Admin Dose Admin Acetaminophen (Tylenol) 650 mg PRN Q6HRS PRN PO MILD PAIN / TEMP > 100.3'F 08/24/20 18:15 Multi-Ingredient Ointment (Analgesic [place]) 1 césar PRN QID PRN TP MUSCLE PAIN 08/24/20 18:15 Al Hydroxide/Mg Hydroxide (Mylanta Plus Xs) 15 ml PRN AFTMEALHC PRN PO DYSPEPSIA 08/24/20 18:15 Magnesium Hydroxide (Milk Of Magnesia) 2,400 mg PRN QHS PRN PO CONSTIPATION 08/24/20 18:15 Aspirin (Aspirin Chewable) 81 mg DAILY PO 08/25/20 09:00 08/26/20 08:40 Cetirizine HCl (ZyrTEC) 10 mg DAILY08 PO 08/25/20 08:00 08/26/20 08:40 Donepezil HCl (Aricept) 23 mg QHS PO 08/24/20 21:00 08/26/20 20:21 Fluoxetine HCl (PROzac) 20 mg DAILY PO 08/25/20 09:00 08/26/20 08:40 Lorazepam (Ativan) 1 mg PRN Q4HRS PRN PO ANXIETY / AGITATION 08/24/20 18:45 Atorvastatin Calcium (Lipitor) 40 mg QHS PO 08/24/20 21:00 08/26/20 20:22 Pantoprazole Sodium (Protonix) 40 mg DAILY08 PO 08/25/20 08:00 08/26/20 08:40 Multivitamins/ Calcium (Thera-M Plus) 1 tab DAILY PO 08/25/20 09:00 08/26/20 08:40 Mupirocin (Bactroban) 1 césar BID92 TP 08/25/20 09:00 08/26/20 13:42 Fish Oil (Fish Oil) 1,000 mg DAILY PO 08/25/20 09:00 08/26/20 08:40 Olanzapine (ZyPREXA ZYDIS) 2.5 mg PRN Q2HR PRN PO PSYCHOSIS 08/24/20 19:45 Sertraline HCl (Zoloft) 25 mg DAILY PO 08/26/20 09:00 08/28/20 21:00 08/26/20 08:40 Sertraline HCl (Zoloft) 50 mg DAILY PO 08/29/20 09:00 Current Medications Medications (Trade) Dose Ordered Sig/Ashvin Route PRN Reason Start Time Stop Time Status Last Admin Dose Admin Sertraline HCl (Zoloft) 25 mg DAILY PO 08/26/20 09:00 08/28/20 21:00 08/26/20 08:40 I have reviewed the current psychotropics carefully including drug interactions. Risk benefit ratio favors no change other than as noted in my dictated progress note. Diagnosis: Problems: (1) Impulse control disorder, unspecified (2) Anxiety disorder, unspecified (3) Dementia, vascular, with depression (4) Dementia, vascular, with delusions (5) Dementia in Alzheimer's disease with depression (6) Dementia in Alzheimer's disease with delusions (7) Dementia of the Alzheimer's type with early onset with behavioral disturbance (8) Major neurocognitive disorder VERENA AGUSTIN MD August 26, 2020 21:47
[2020-08-27 05:52] VITALS: BP 116/69
[2020-08-27] MEDS: SERTRALINE 25 MG TABLET. PO SCH (08:42)
[2020-08-27] MEDS: CETIRIZINE HCL 10 MG TABLET PO SCH (08:42)
[2020-08-27] MEDS: PANTOPRAZOLE 40 MG TABLET. PO SCH (08:42)
[2020-08-27] MEDS: ASPIRIN CHEWABLE 81 MG TABLET. PO SCH (08:42)
[2020-08-27] MEDS: OMEGA-3 FATTY ACIDS/FISH OIL 1,000 MG CAPSULE. PO SCH (08:42)
[2020-08-27] MEDS: MULTIVITAMIN with MINERAL TABLET. PO SCH (08:42)
[2020-08-27] MEDS: MUPIROCIN 2% TOPICAL OINTMENT 22GM TUBE. TP SCH ×2 (09:00→12:40)
[2020-08-27 16:01] VITALS: BP 101/68
[2020-08-27] MEDS: DONEPEZIL 23 MG TABLET PO SCH (20:34)
[2020-08-27] MEDS: ATORVASTATIN CALCIUM 20 MG TABLET PO SCH (20:34)
--- NOTE | 2020-08-27 23:21 | PN ---
DATE: 08/27/2020 SUBJECTIVE: The patient was seen today, met with the staff. Chart was reviewed and also covering for Dr. Crandall. The patient continues to be confused, pleasant, has not exhibited any major aggressive behaviors. He loves to be left alone. The patient also tend to isolate himself. OBSERVATION: VITAL SIGNS: Temperature 97.5, blood pressure 116/69, pulse 98, respirations 18, O2 sat 95%. Slept about 6 hours last night. CURRENT MEDICATIONS: Includes Zoloft 50 mg daily plus 25 mg daily, Prozac 20 mg daily, Aricept 23 mg at night, lorazepam 1 mg q. 4 hours p.r.n., also olanzapine 2.5 mg q. 2 hours p.r.n. LABORATORY DATA: Patient's lab reviewed. The patient is not having any side effects to the medications. ASSESSMENT: 1. Major neurocognitive disorder, Alzheimer's, vascular with delusion, depression and behavioral disturbances. 2, Anxiety disorder, unspecified. 3. Impulse control disorder, unspecified. PLAN: Plans to continue with the current treatment plan. The patient will be monitored for his behavior and consider change of medication accordingly. Length of stay 7 to [address]: Romana TID: [id number] [facility]
[2020-08-28 04:46] LABS: BACTERIA,URINE 0 /HPF (0-FEW); BILIRUBIN,URINE NEG (NEG); CLARITY,URINE CLEAR; COLOR,URINE YELLOW; GLUCOSE,URINE NEG (NEG); NITRITE,URINE NEG (NEG); RBC,URINE 0 /HPF (0-2); SQUAMOUS EPITHELIAL CELL,UR OCC /LPF; UROBILINOGEN,URINE 0.2 mg/dL (0.2 mg/dL); WBC,URINE RARE /HPF (0-4)
[2020-08-28 06:01] VITALS: BP 109/71
[2020-08-28 07:53] LABS: BASO # 0.1 x10^3/uL (0.0-0.2); BASO % 1 % (0-3); EOS # 0.2 x10^3/uL (0.0-0.7); EOS % 2 % (0-3); HEMATOCRIT 34.4 % (39.0-53.0); HEMOGLOBIN 11.5 g/dL (13.0-17.5); LYMPH # 1.3 x10^3/uL (1.0-4.8); LYMPH % 15 % (24-48); MEAN CORPUSCULAR HEMOGLOBIN 31 pg (25-35); MEAN CORPUSCULAR HGB CONC 33 g/dL (31-37); MEAN CORPUSCULAR VOLUME 92 fL (79-100); MONO # 0.6 x10^3/uL (0.0-1.1); MONO % 7 % (0-9); NEUT # 6.1 x10^3uL (1.8-7.7); NEUT % 74 % (31-73); PLATELET COUNT 267 x10^3/uL (140-400); RED BLOOD COUNT 3.76 x10^6/uL (4.30-5.70); RED CELL DISTRIBUTION WIDTH 13.8 % (11.5-14.5); WHITE BLOOD COUNT 8.3 x10^3/uL (4.0-11.0)
[2020-08-28 08:10] LABS: ALBUMIN 3.5 g/dL (3.4-5.0); ALBUMIN/GLOBULIN RATIO 1.1 (1.0-1.7); CALCIUM 8.8 mg/dL (8.5-10.1); CREATININE 1.4 mg/dL (0.7-1.3); GFR 49.7; POTASSIUM 4.3 mmol/L (3.5-5.1); TOTAL BILIRUBIN 0.9 mg/dL (0.2-1.0); TOTAL PROTEIN 6.8 g/dL (6.4-8.2)
[2020-08-28] MEDS: MULTIVITAMIN with MINERAL TABLET. PO SCH (08:36)
[2020-08-28] MEDS: ASPIRIN CHEWABLE 81 MG TABLET. PO SCH (08:37)
[2020-08-28] MEDS: CETIRIZINE HCL 10 MG TABLET PO SCH (08:37)
[2020-08-28] MEDS: PANTOPRAZOLE 40 MG TABLET. PO SCH (08:37)
[2020-08-28] MEDS: SERTRALINE 25 MG TABLET. PO SCH (08:37)
[2020-08-28] MEDS: MUPIROCIN 2% TOPICAL OINTMENT 22GM TUBE. TP SCH ×2 (08:37→13:30)
[2020-08-28] MEDS: OMEGA-3 FATTY ACIDS/FISH OIL 1,000 MG CAPSULE. PO SCH (08:37)
[2020-08-28 16:00] VITALS: BP 110/69
[2020-08-28] MEDS: LORazepam 1 MG TABLET PO PRN (16:45)
[2020-08-28] MEDS: TAMSULOSIN 0.4 MG CAP.ER.24H. PO SCH (19:48)
[2020-08-28] MEDS: ATORVASTATIN CALCIUM 20 MG TABLET PO SCH (19:48)
--- NOTE | 2020-08-29 00:58 | PN ---
DATE: 08/28/2020 SUBJECTIVE: The patient was seen today met with the staff. Chart was reviewed. also covering for Dr. Crandall. Patient still confused, but pleasant, occasional outburst of increased anxiety and agitation. The patient continues to isolate himself. OBSERVATION: VITAL SIGNS: Temperature 98.0, blood pressure 109/71, pulse 83, respirations 18, O2 sat 97, slept about 6 hours last night. GENERAL: Patient's appetite fair. MEDICATIONS: Patient currently on Zoloft 50 mg daily and 25 mg daily, Prozac 20 mg daily, Aricept 23 mg at night, lorazepam 1 mg q.4 hours p.r.n. and olanzapine 2.5 mg q.2 hours p.r.n. LABORATORY DATA: The patient's lab reviewed. ASSESSMENT: Major neurocognitive disorder, most likely Alzheimer's, vascular with delusions, depression, behavioral disturbances, anxiety disorder. PLAN: Continue with the current treatment plan. LENGTH OF STAY: 7 to [address]: Romana TID: [id number] [facility]
[2020-08-29 06:27] VITALS: BP 108/66
[2020-08-29] MEDS: SERTRALINE 50 MG TABLET. PO SCH (08:16)
[2020-08-29] MEDS: OMEGA-3 FATTY ACIDS/FISH OIL 1,000 MG CAPSULE. PO SCH (08:16)
[2020-08-29] MEDS: MULTIVITAMIN with MINERAL TABLET. PO SCH (08:16)
[2020-08-29] MEDS: PANTOPRAZOLE 40 MG TABLET. PO SCH (08:16)
[2020-08-29] MEDS: CETIRIZINE HCL 10 MG TABLET PO SCH (08:16)
[2020-08-29] MEDS: ASPIRIN CHEWABLE 81 MG TABLET. PO SCH (08:16)
[2020-08-29] MEDS: MUPIROCIN 2% TOPICAL OINTMENT 22GM TUBE. TP SCH ×2 (08:17→13:51)
[2020-08-29 16:02] VITALS: BP 136/80
[2020-08-29] MEDS: ATORVASTATIN CALCIUM 20 MG TABLET PO SCH (19:46)
[2020-08-29] MEDS: TAMSULOSIN 0.4 MG CAP.ER.24H. PO SCH (19:46)
--- NOTE | 2020-08-30 00:40 | PN ---
DATE: 08/29/2020 DATE OF SERVICE: 08/29/2020 SUBJECTIVE: The patient was seen today met with the staff. Chart was reviewed and also covering for Dr. Crandall. Staff reports no major behavioral problems. He is pleasant, but confused. The patient is able to ambulate and is not a fall risk. OBSERVATION: VITAL SIGNS: Temperature 97.5, blood pressure 108/66, pulse 70, respirations 14, O2 sat 96%. Slept about 6 hours last night. The patient's appetite is fair. MEDICATIONS: He is currently on Zoloft 50 mg daily plus 25 mg daily, Prozac 20 mg daily, Aricept 23 mg at night, lorazepam 1 mg q. 4 hours p.r.n. and also olanzapine 2.5 mg q. 2h. p.r.n. LABORATORY DATA: The patient's lab reviewed. ASSESSMENT: Major neurocognitive disorder, most likely Alzheimer's, vascular with delusions, depression and behavioral disturbances. PLAN: To continue with the treatment. LENGTH OF STAY: Seven to ten days, awaiting for placement. WILDA DR: Romana TID: [id number] [facility]
[2020-08-30 06:09] VITALS: BP 95/61
[2020-08-30] MEDS: OMEGA-3 FATTY ACIDS/FISH OIL 1,000 MG CAPSULE. PO SCH (08:40)
[2020-08-30] MEDS: MUPIROCIN 2% TOPICAL OINTMENT 22GM TUBE. TP SCH ×2 (08:40→14:21)
[2020-08-30] MEDS: CETIRIZINE HCL 10 MG TABLET PO SCH (08:40)
[2020-08-30] MEDS: ASPIRIN CHEWABLE 81 MG TABLET. PO SCH (08:40)
[2020-08-30] MEDS: PANTOPRAZOLE 40 MG TABLET. PO SCH (08:40)
[2020-08-30] MEDS: SERTRALINE 50 MG TABLET. PO SCH (08:40)
[2020-08-30] MEDS: MULTIVITAMIN with MINERAL TABLET. PO SCH (08:40)
[2020-08-30 16:22] VITALS: BP 95/50
[2020-08-30] MEDS: TAMSULOSIN 0.4 MG CAP.ER.24H. PO SCH (19:42)
[2020-08-30] MEDS: ATORVASTATIN CALCIUM 20 MG TABLET PO SCH (19:43)
--- NOTE | 2020-08-31 01:36 | PN ---
DATE: 08/30/2020 DATE OF SERVICE: 08/30/2020 SUBJECTIVE: The patient was seen today, met with the staff, chart reviewed. Also, covering for Dr. Crandall. Staff reports no major behavior problems, is pleasant, but confused. The patient is not presenting with any major medical issues at this time and no falls. OBSERVATION: VITAL SIGNS: Temperature 97.8, blood pressure 95/50, pulse 70, respirations 18, O2 sat 98%. GENERAL: The patient is sleeping fairly well. The patient's appetite is fair. CURRENT MEDICATIONS: Include Zoloft 50 mg daily and 25 mg daily, Prozac 20 mg daily, Aricept 23 mg at night. He is also on lorazepam 1 mg q.4 hours p.r.n. and olanzapine 2.5 mg q.2 hours p.r.n. LABORATORY DATA: The patient's lab reviewed. ASSESSMENT: Major neurocognitive disorder, most likely Alzheimer's, vascular with delusions, depression, behavioral disturbances. PLAN: To continue with treatment. LENGTH OF STAY: Seven days. EDOUARD DR: Romana TID: [id number] [facility]
[2020-08-31 06:01] VITALS: BP 98/63
[2020-08-31] MEDS: PANTOPRAZOLE 40 MG TABLET. PO SCH (08:45)
[2020-08-31] MEDS: MULTIVITAMIN with MINERAL TABLET. PO SCH (08:45)
[2020-08-31] MEDS: SERTRALINE 50 MG TABLET. PO SCH (08:45)
[2020-08-31] MEDS: ASPIRIN CHEWABLE 81 MG TABLET. PO SCH (08:46)
[2020-08-31] MEDS: OMEGA-3 FATTY ACIDS/FISH OIL 1,000 MG CAPSULE. PO SCH (08:46)
[2020-08-31] MEDS: MUPIROCIN 2% TOPICAL OINTMENT 22GM TUBE. TP SCH ×2 (08:46→13:46)
[2020-08-31] MEDS: CETIRIZINE HCL 10 MG TABLET PO SCH (08:46)
[2020-08-31 16:28] VITALS: BP 101/64
[2020-08-31] MEDS: ATORVASTATIN CALCIUM 20 MG TABLET PO SCH (19:58)
[2020-08-31] MEDS: TAMSULOSIN 0.4 MG CAP.ER.24H. PO SCH (19:58)
[2020-09-01 05:23] VITALS: BP 99/60
--- NOTE | 2020-09-01 07:52 | PN ---
DATE: 08/31/2020 SUBJECTIVE: The patient was seen today, met with the staff. Chart was reviewed and also covering for Dr. Crandall. Staff reports no major behavior problems. Is pleasantly confused, cooperative and med compliant. OBSERVATION: VITAL SIGNS: Temperature 98.4, blood pressure 98/63, pulse 80, respirations 18, O2 sat 98%. Slept about 6 hours last night. The patient's appetite is fair. MEDICATIONS: The patient's current medications include Zoloft 50 mg daily, Prozac 20 mg daily, olanzapine 2.5 mg q. 2 hours p.r.n., lorazepam 1 mg q. 4 hours p.r.n. Patient's lab reviewed. ASSESSMENT: Major neurocognitive disorder, most likely Alzheimer's, vascular with delusions, depression, behavioral disturbances. PLAN: To continue with the treatment. LENGTH OF STAY: Seven days. MELVIN/KALPANA/RIDGE DR: MELVIN/ghada TID: [id number]
[2020-09-01] MEDS: SERTRALINE 50 MG TABLET. PO SCH (08:53)
[2020-09-01] MEDS: ASPIRIN CHEWABLE 81 MG TABLET. PO SCH (08:53)
[2020-09-01] MEDS: PANTOPRAZOLE 40 MG TABLET. PO SCH (08:53)
[2020-09-01] MEDS: OMEGA-3 FATTY ACIDS/FISH OIL 1,000 MG CAPSULE. PO SCH (08:53)
[2020-09-01] MEDS: CETIRIZINE HCL 10 MG TABLET PO SCH (08:53)
[2020-09-01] MEDS: MULTIVITAMIN with MINERAL TABLET. PO SCH (08:53)
[2020-09-01] MEDS: MUPIROCIN 2% TOPICAL OINTMENT 22GM TUBE. TP SCH ×2 (09:00→14:00)
[2020-09-01 16:08] VITALS: BP 105/68
--- NOTE | 2020-09-01 16:21 | TX PLAN ---
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 Change Sleep, Confusion/Disoriented, Poor impulse control, Other Problem in Patient's Words: I cannot care for him at home. Additional Admission Comments: According to the intake, pt was anxious, wandering, restless, insomnia, posturing [address] staff, struck which resulted in police response Problems Active Problems: wandering restless Inactive Problems: medication compliant Pt Strengths/Limitations Ability for [place]: Poor Cognitive Functioning/Ability: Fair Communication Skills/Ability: Fair Financial Resources: Poor Insight/Judgement: Poor Intellectual Ability: Poor Physical Health: Fair Social Skills: Fair Stability in Family: Fair Stability in School/Work: Poor Verbal Skills: Fair Discharge Criteria Discharge Criteria: No need for close observ., Adequate arrangements @DC, Improved behavior, Improved mood/thought Preliminary Discharge Plan Preliminary DC Plan: Placement Needed Special Precautions Fall Risk: Low Initial D/C Plan Pt is not able to discharge home, will need placement once stable. Identified Discharge Needs: Referral for higher level of care Currently Utilized Resources Currently Utilized Resources/P: Primary Care Physician Identified Problems/Hx/Goals Objectives/Short-Term Goals Short Term Goals: Dec. Aggression, Dec. Outbursts, Medication Stabilization, Monitor Med Effects Short Term Goals in Patient's: N/A Interventions/Frequency Staff Interventions/Frequency&: Psychiatrist to assess pt at least 3x per week for medication management. Social Work to assess pt at least 2x per week to identify barriers to care and finalize discharge planning. Nursing to assess medication effects, behavior modification, and completion of 15 minute checks daily. Encourage participation in group activities (if applicable) or 1:1 engagement based off Activity Dept goals. 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 He received a Bachelors in Sociology. Community Follow-up Primary Care Physician Referrals to higher level of care Community Provider/Family Inpu: Pt has become increasingly aggressive towards his , who is caring for pt. She is not able to care for pt at home any longer. Treatment Plan Explained Patient/Family Court Registrar had this treatment plan explained to him/her as indicated by the signature below and has been given the opportunity to ask questions and make suggestions: Date: Patient/Family Court Registrar Signature: Patient/Family Court Registrar Decline: No (Pt highly involved in pt case.) Status Update Update Please note that this is pt second Interdisciplinary Treatment Team, with his first team being 08/25. Pt is eating 100% of meals and sleeping on avera ge 6.5 hours per night. Pt is pleasantly confused, but compliant with all cares and staff direction. Pt is also medication compliant, taking them whole. Pt does sit in the day room and minimally participates in group activities. Pt is working on pt Medicaid application as he will need placement and is not able to discharge home; furthermore, pt has a guardianship hearing on September 09. SW will continue to work with pt on placement arrangements. WALESKA HARRELL September 01, 2020 16:21
[2020-09-01] MEDS: TAMSULOSIN 0.4 MG CAP.ER.24H. PO SCH (21:34)
[2020-09-01] MEDS: ATORVASTATIN CALCIUM 20 MG TABLET PO SCH (21:34)
--- NOTE | 2020-09-01 23:29 | CONS ---
DATE OF CONSULTATION: 08/26/2020 NEUROLOGY CONSULTATION REASON FOR CONSULTATION: Worsening of dementia. HISTORY OF PRESENT ILLNESS: This is a 75-year-old right-handed male who is known to me from outpatient visits. He was admitted initially to [address] [place] [address] then transferred to a Geropsychiatric unit on account of worsening of his dementia and behavior disturbances. The patient is known to me for several years, having a dementia of Alzheimer type. His has reported to me on several occasions that her has been somewhat with aggressive behavior with paranoid. He tried several times to be admitted to Psych Unit for further psychiatric care for his behavior disturbances. Currently, the patient denies any new medical or neurological complaints. He reported having sometimes difficulty to sleep. PAST MEDICAL HISTORY: Significant for prostate cancer and chronic lower back pain, dementia of Alzheimer type, hyperlipidemia, and GERD. Previous head CT scan revealed evidence of small-vessel ischemic changes. PAST SURGICAL HISTORY: Positive for prostate surgery. FAMILY HISTORY: Noncontributory. SOCIAL HISTORY: The patient denies smoking, alcohol or illicit drug use. CURRENT MEDICATIONS: Reviewed. Sertraline 50 mg daily, tamsulosin 0.4 mg at bedtime, fish oil 1000 mg p.o. daily, multivitamins, fluoxetine 20 mg p.o. daily, aspirin 81 mg p.o. daily, pantoprazole 40 mg p.o. daily, cetirizine 10 mg daily, Lipitor 40 mg at bedtime, olanzapine 2.5 mg every 2 hours p.r.n., lorazepam 1 mg q. 4 hours p.r.n., and Tylenol p.r.n. ALLERGIES: No known drug allergies. PHYSICAL EXAMINATION: GENERAL: Well-developed, well-nourished male in no acute distress. He weighs 57.58 kilos. VITAL SIGNS: Blood pressure is 105/69, respiratory rate 18, pulse is 75 and regular, temperature 98, oxygen saturation 93% on room air. HEENT: Normocephalic, atraumatic, otherwise unremarkable. NECK: Supple, negative for carotid bruit, lymphadenopathy or thyromegaly. LUNGS: Clear to A and P. CARDIOVASCULAR: Regular rate and rhythm, normal S1, S2. There is no S3, S4 or murmur. ABDOMEN: Soft. Bowel sounds positive. EXTREMITIES: Negative for cyanosis, clubbing or pedal edema. NEUROLOGIC: Mental status: The patient is alert to himself. His speech is slow. Memory, judgment and abstracting thinking are poor. The patient denies hallucination or delusion. Cranial nerves: Visual de santiago appeared to be intact. The pupils are reactive to light and accommodation. Extraocular movements are intact. There is no nystagmus. There is no facial motor or sensory deficit. Hearing is intact bilaterally. The palate is elevated symmetrically. Sternocleidomastoid muscles are powerful bilaterally. The patient shrugs his shoulders symmetrically, protrudes his tongue in the midline without fasciculation or atrophy. Motor: No focal muscle bulk wasting. The tone is normal. The strength is 4/5 throughout. Sensory examination revealed normal pinprick, light touch, vibratory and position senses. Deep tendon reflexes were symmetric and active without pathology responses. Gait and coordination are normal. LABORATORY DATA: Not available at this time. A head CT scan performed on 08/21/2020 revealed no acute intracranial process, but shows generalized atrophy and a CT of the cervical spine performed on 08/21/2020 revealed no acute process. IMPRESSION: 1. Dementia of Alzheimer type with current exacerbation of his aggressive behavior. 2. Depression, anxiety disorders. RECOMMENDATION: Continue with current medical and psychiatric care. MAR DR: Carlito TID: [id number]
--- NOTE | 2020-09-02 03:30 | PN ---
DATE: 09/01/2020 SUBJECTIVE: The patient was seen today met with the staff. Chart was reviewed and also participated in the treatment review meeting. The patient is still confused, but med compliant. Recently has not shown any major behavior problems. The patient is needing placement. The patient also difficult to redirect. PHYSICAL EXAMINATION: VITAL SIGNS: Temperature 96.8, blood pressure 99/60, pulse 68, respirations 18, O2 sat 98%. Slept about 6 hours last night. The patient's appetite is fair. CURRENT MEDICATIONS: Include, Zoloft 50 mg daily, Prozac 20 mg daily, olanzapine 2.5 mg q. 2 hours p.r.n. and also lorazepam 1 mg q. 4 hours p.r.n. The patient is not having any side effects to medications. ASSESSMENT: Major neurocognitive disorder, most likely Alzheimer's, vascular with delusions, depression and behavioral disturbances. PLAN: To continue with the treatment. LENGTH OF STAY: [address]: Romana TID: [id number]
[2020-09-02 05:32] VITALS: BP 91/54
[2020-09-02] MEDS: MUPIROCIN 2% TOPICAL OINTMENT 22GM TUBE. TP SCH ×2 (09:00→09:30)
[2020-09-02] MEDS: MULTIVITAMIN with MINERAL TABLET. PO SCH (09:26)
[2020-09-02] MEDS: CETIRIZINE HCL 10 MG TABLET PO SCH (09:26)
[2020-09-02] MEDS: PANTOPRAZOLE 40 MG TABLET. PO SCH (09:26)
[2020-09-02] MEDS: OMEGA-3 FATTY ACIDS/FISH OIL 1,000 MG CAPSULE. PO SCH (09:26)
[2020-09-02] MEDS: SERTRALINE 50 MG TABLET. PO SCH (09:26)
[2020-09-02] MEDS: ASPIRIN CHEWABLE 81 MG TABLET. PO SCH (09:27)
[2020-09-02 15:44] VITALS: BP 98/63
[2020-09-02] MEDS: ATORVASTATIN CALCIUM 20 MG TABLET PO SCH (20:33)
[2020-09-02] MEDS: TAMSULOSIN 0.4 MG CAP.ER.24H. PO SCH (20:33)
--- NOTE | 2020-09-03 04:51 | PN ---
DATE: 09/02/2020 SUBJECTIVE: The patient was seen today, met with the staff. Chart reviewed and also covering for Dr. Crandall. The patient continues to show increased confusion, pleasant and medication compliant. The patient is , sometimes difficult to redirect. OBSERVATION: VITAL SIGNS: Temperature 97.5, blood pressure 91/54, pulse 73, respirations 16, O2 sat 98%. Slept about 9 hours last night. CURRENT MEDICATIONS: Include Zoloft 50 mg daily, Prozac 20 mg daily, olanzapine 2.5 mg q.2h. p.r.n. and also lorazepam 1 mg q.4 hours p.r.n. The patient is not showing any side effects. ASSESSMENT: Major neurocognitive disorder, most likely Alzheimer's vascular with delusions, depression and behavioral disturbances. PLAN: To continue with the treatment. LENGTH OF STAY: Seven days. VANE/JOSEF DR: Romana TID: [id number]
[2020-09-03 05:51] VITALS: BP 105/69
[2020-09-03] MEDS: MUPIROCIN 2% TOPICAL OINTMENT 22GM TUBE. TP SCH ×2 (07:35→12:33)
[2020-09-03] MEDS: OMEGA-3 FATTY ACIDS/FISH OIL 1,000 MG CAPSULE. PO SCH (08:23)
[2020-09-03] MEDS: CETIRIZINE HCL 10 MG TABLET PO SCH (08:23)
[2020-09-03] MEDS: ASPIRIN CHEWABLE 81 MG TABLET. PO SCH (08:23)
[2020-09-03] MEDS: MULTIVITAMIN with MINERAL TABLET. PO SCH (08:24)
[2020-09-03] MEDS: SERTRALINE 50 MG TABLET. PO SCH (08:24)
[2020-09-03] MEDS: PANTOPRAZOLE 40 MG TABLET. PO SCH (08:24)
[2020-09-03] MEDS ORDERED: MUPIROCIN 2% TOPICAL OINTMENT 22GM TUBE. TP PRN (12:45)
[2020-09-03 15:45] VITALS: BP 116/76
[2020-09-03] MEDS: TAMSULOSIN 0.4 MG CAP.ER.24H. PO SCH (20:34)
[2020-09-03] MEDS: ATORVASTATIN CALCIUM 20 MG TABLET PO SCH (20:35)
[2020-09-04] MEDS: LORazepam 1 MG TABLET PO PRN (01:29)
--- NOTE | 2020-09-04 01:31 | PN ---
DATE: 09/03/2020 SUBJECTIVE: The patient was seen today, met with the staff, chart reviewed. Also, covering for Dr. Crandall. Staff reports no major behavior problems. The patient is confused, but pleasant and medication compliant. The patient is withdrawn, sometimes difficult to redirect. VITAL SIGNS: Temperature 98.0, blood pressure 105/69, pulse 75, respirations 16, O2 sat 98%. Slept about 5 hours last night. LABORATORY DATA AND MEDICATIONS: Reviewed. Currently, he is not having any side effects to the medications. The patient's appetite is fair. ASSESSMENT: Major neurocognitive disorder, most likely Alzheimer's, vascular with the delusions, depression and behavioral disturbances. PLAN: To continue with the treatment. LENGTH OF STAY: 7 days. MELVIN/CHAVO/ISAI DR: MELVIN/ghada TID: [id number]
[2020-09-04 05:56] VITALS: BP 109/62
[2020-09-04 07:15] LABS: BASO # 0.1 x10^3/uL (0.0-0.2); BASO % 2 % (0-3); EOS # 0.2 x10^3/uL (0.0-0.7); EOS % 2 % (0-3); HEMATOCRIT 33.9 % (39.0-53.0); HEMOGLOBIN 11.2 g/dL (13.0-17.5); LYMPH # 1.2 x10^3/uL (1.0-4.8); LYMPH % 15 % (24-48); MEAN CORPUSCULAR HEMOGLOBIN 31 pg (25-35); MEAN CORPUSCULAR HGB CONC 33 g/dL (31-37); MEAN CORPUSCULAR VOLUME 92 fL (79-100); MONO # 0.7 x10^3/uL (0.0-1.1); MONO % 8 % (0-9); NEUT % 73 % (31-73); PLATELET COUNT 258 x10^3/uL (140-400); RED BLOOD COUNT 3.67 x10^6/uL (4.30-5.70); RED CELL DISTRIBUTION WIDTH 13.9 % (11.5-14.5); WHITE BLOOD COUNT 8.2 x10^3/uL (4.0-11.0)
[2020-09-04 07:40] LABS: ALBUMIN 3.4 g/dL (3.4-5.0); ALBUMIN/GLOBULIN RATIO 1.1 (1.0-1.7); ALK PHOS 73 U/L (46-116); ALT (SGPT) 30 U/L (16-63); AST (SGOT) 19 U/L (15-37); BLOOD UREA NITROGEN 26 mg/dL (8-26); BUN/CREATININE RATIO 17 (6-20); CALCIUM 8.4 mg/dL (8.5-10.1); CHLORIDE 105 mmol/L (98-107); CREATININE 1.5 mg/dL (0.7-1.3); GFR 45.9; GLUCOSE 100 mg/dL (70-99); POTASSIUM 4.2 mmol/L (3.5-5.1); SODIUM 141 mmol/L (136-145); TOTAL BILIRUBIN 1.2 mg/dL (0.2-1.0); TOTAL PROTEIN 6.5 g/dL (6.4-8.2)
[2020-09-04 08:36] LABS: ANION GAP 8 (6-14)
[2020-09-04] MEDS: OMEGA-3 FATTY ACIDS/FISH OIL 1,000 MG CAPSULE. PO SCH (08:57)
[2020-09-04] MEDS: ASPIRIN CHEWABLE 81 MG TABLET. PO SCH (08:58)
[2020-09-04] MEDS: ACETAMINOPHEN 325 MG TABLET PO PRN (08:58)
[2020-09-04] MEDS: MULTIVITAMIN with MINERAL TABLET. PO SCH (08:58)
[2020-09-04] MEDS: CETIRIZINE HCL 10 MG TABLET PO SCH (08:58)
[2020-09-04] MEDS: SERTRALINE 50 MG TABLET. PO SCH (08:58)
[2020-09-04] MEDS: PANTOPRAZOLE 40 MG TABLET. PO SCH (08:58)
[2020-09-04 15:55] VITALS: BP 107/68
--- NOTE | 2020-09-04 18:04 | RAD ---
EXAMINATION: CT HEAD/BRAIN WO (CT HEAD WITHOUT IV CONTRAST) CLINICAL HISTORY: Reason: change in mentation/falls / Spl. Instructions: / History: TECHNIQUE: Serial axial images without IV contrast were obtained from the vertex to the foramen magnu m. CT Dose Reduction Employed: One or more of the following individualized dose reduction techniques wer e utilized for this examination: 1. Automated exposure control 2. Adjustment of the mA and/or kV ac cording to patient size 3. Use of iterative reconstruction technique. COMPARISON: 08/22/1999 FINDINGS: Acute Change: No evidence of an acute infarct or other acute parenchymal process. Hemorrhage: No evidence of acute intracranial hemorrhage. Mass Lesion/Mass Effect: No evidence of intracranial mass or extraaxial fluid collection. No signific ant mass effect. Chronic Change: Scattered patchy foci of hypoattenuation in the supratentorial white matter, nonspeci fic but likely represents mild microvascular ischemia. Atherosclerotic calcification of the bilateral carotid siphons. Parenchyma: Mild generalized volume loss. Ventricles: Enlarged lateral and third ventricles, suggestive of changes secondary to central white m atter volume loss. Paranasal Sinuses and Skull Base: Visualized paranasal sinuses clear. Visualized skull base and soft tissues unremarkable. IMPRESSION: No evidence of acute intracranial abnormality or significant interval change. Electronically signed by: Salvatore Hadley DO (09/04/2020 6:02 PM) MICAH
[2020-09-04] MEDS: TAMSULOSIN 0.4 MG CAP.ER.24H. PO SCH (20:14)
[2020-09-04] MEDS: ATORVASTATIN CALCIUM 20 MG TABLET PO SCH (20:14)
[2020-09-04] MEDS ORDERED: diphenhydrAMINE HCL 25 MG CAPSULE PO ONE (21:00)
--- NOTE | 2020-09-04 23:07 | PN ---
DATE: 09/04/2020 DATE OF SERVICE: 09/04/2020. SUBJECTIVE: The patient was seen today, met with the staff, chart reviewed and also covering for Dr. Crandall. The patient apparently received a p.r.n. Ativan last night and says this morning, he was somewhat unsteady, appears to be sedated, still confused. Staff also reports while sitting on his chair, hit his head against the edges of the table. The patient's behavior has changed significantly. OBJECTIVE: VITAL SIGNS: Temperature 97.1, blood pressure 109/62, pulse 67, respirations 18, O2 sat 96%. Slept about 5 hours last night. The patient apparently was confused last night. The patient's appetite is fair. MEDICATIONS: The patient's current medications include Zoloft 50 mg daily, Prozac 20 mg daily, olanzapine 2.5 mg q. 2 hours p.r.n., and was also on lorazepam 1 mg q. 4 hours p.r.n. Apparently, he had the first dose last night and apparently had problems including increased sedation, confusion, and restlessness. Patient's lab reviewed. Patient's hemoglobin 11.2. Patient's creatinine level is 1.5. ASSESSMENT: Major neurocognitive disorder, most likely Alzheimer's, vascular with delusions, depression, and behavioral disturbances. PLAN: Patient will continue on his medications and the patient's Ativan will be discontinued and the patient also will be scheduled for a CT scan of the head because he hit his head against the table. LENGTH OF STAY: [address]: Romana TID: [id number]
[2020-09-05 02:28] LABS: BACTERIA,URINE 0 /HPF (0-FEW); BILIRUBIN,URINE NEG (NEG); CLARITY,URINE CLEAR; COLOR,URINE YELLOW; GLUCOSE,URINE NEG (NEG); NITRITE,URINE NEG (NEG); RBC,URINE 0 /HPF (0-2); SQUAMOUS EPITHELIAL CELL,UR OCC /LPF; UROBILINOGEN,URINE 0.2 mg/dL (0.2 mg/dL); WBC,URINE 0 /HPF (0-4)
[2020-09-05 05:51] VITALS: BP 111/68
[2020-09-05] MEDS: CETIRIZINE HCL 10 MG TABLET PO SCH (08:00)
[2020-09-05] MEDS: PANTOPRAZOLE 40 MG TABLET. PO SCH (08:00)
[2020-09-05] MEDS: MULTIVITAMIN with MINERAL TABLET. PO SCH (09:00)
[2020-09-05] MEDS: OMEGA-3 FATTY ACIDS/FISH OIL 1,000 MG CAPSULE. PO SCH (09:00)
[2020-09-05] MEDS: ASPIRIN CHEWABLE 81 MG TABLET. PO SCH (09:00)
[2020-09-05] MEDS: SERTRALINE 50 MG TABLET. PO SCH (09:00)
[2020-09-05 15:48] VITALS: BP 116/71
[2020-09-05] MEDS: TAMSULOSIN 0.4 MG CAP.ER.24H. PO SCH (20:26)
[2020-09-05] MEDS: ATORVASTATIN CALCIUM 20 MG TABLET PO SCH (20:26)
--- NOTE | 2020-09-06 02:54 | PN ---
DATE: 09/05/2020 SUBJECTIVE: The patient was seen today, met with the staff, chart reviewed. Also, covering for Dr. Crandall. The patient apparently was having increased confusion. Also,tend to lean to the right and did not have any falls. OBSERVATION: VITAL SIGNS: Temperature 97.7, blood pressure 111/68, pulse 86, respirations 18, O2 sat 96%. Slept about 8 hours last night. The patient continues to be confused, had difficulty making eye contact. The patient was continued on his medications including Zoloft 50 mg daily, Prozac 20 mg daily, olanzapine 2.5 mg q. 2 hours p.r.n. and was also on lorazepam 1 mg q. 4 hours p.r.n. The patient has been off lorazepam p.r.n. since yesterday. LABORATORY DATA: The patient's lab reviewed. The patient's hemoglobin was 11.2. ASSESSMENT: Major neurocognitive disorder, most likely Alzheimer's, vascular with delusion, depression and behavioral disturbances. PLAN: To continue with the current treatment plan. patient's CT scan was within normal range. Length of stay seven days. CELE DR: Romana TID: [id number] [facility]
[2020-09-06 05:59] VITALS: BP 119/68
[2020-09-06] MEDS: SERTRALINE 50 MG TABLET. PO SCH (09:00)
[2020-09-06] MEDS: CETIRIZINE HCL 10 MG TABLET PO SCH (10:27)
[2020-09-06] MEDS: OMEGA-3 FATTY ACIDS/FISH OIL 1,000 MG CAPSULE. PO SCH (10:27)
[2020-09-06] MEDS: ASPIRIN CHEWABLE 81 MG TABLET. PO SCH (10:27)
[2020-09-06] MEDS: MULTIVITAMIN with MINERAL TABLET. PO SCH (10:28)
[2020-09-06] MEDS: PANTOPRAZOLE 40 MG TABLET. PO SCH (10:28)
[2020-09-06 18:45] VITALS: BP 125/63
[2020-09-06] MEDS: ATORVASTATIN CALCIUM 20 MG TABLET PO SCH (20:09)
[2020-09-06] MEDS: TAMSULOSIN 0.4 MG CAP.ER.24H. PO SCH (20:09)
[2020-09-07 05:43] VITALS: BP 116/68
[2020-09-07] MEDS: CETIRIZINE HCL 10 MG TABLET PO SCH (08:51)
[2020-09-07] MEDS: OMEGA-3 FATTY ACIDS/FISH OIL 1,000 MG CAPSULE. PO SCH (08:51)
[2020-09-07] MEDS: PANTOPRAZOLE 40 MG TABLET. PO SCH (08:51)
[2020-09-07] MEDS: ASPIRIN CHEWABLE 81 MG TABLET. PO SCH (08:51)
[2020-09-07] MEDS: MULTIVITAMIN with MINERAL TABLET. PO SCH (08:51)
[2020-09-07 15:59] VITALS: BP 125/73
[2020-09-07] MEDS: ATORVASTATIN CALCIUM 20 MG TABLET PO SCH (20:20)
[2020-09-07] MEDS: TAMSULOSIN 0.4 MG CAP.ER.24H. PO SCH (20:20)
--- NOTE | 2020-09-08 00:21 | PN ---
DATE: 09/06/2020 DATE OF SERVICE: 09/06/2020 This is a late entry for the service date 09/06/2020. SUBJECTIVE: The patient was seen today by Telehealth. Discussed with the staff and also chart reviewed. The patient is less confused and also less drowsy and the patient held his Prozac today. Otherwise, the patient is not presenting with any major behavior problems. He did not have any falls. OBSERVATION: VITAL SIGNS: Temperature 98.8, blood pressure 116/68, pulse 85, respirations 20, O2 sat 99%. Slept about 5 hours last night. The patient's appetite is fair. The patient currently on only Prozac 20 mg daily and his Zoloft was discontinued because of drowsiness. The patient was also taken off lorazepam p.r.n. The patient's lab reviewed. ASSESSMENT: Major neurocognitive disorder, most likely Alzheimer's, vascular with delusion, depression and behavioral disturbances. PLAN: To continue with the current treatment plan. The patient's CT scan was within normal range. LENGTH OF STAY: [address]: Romana TID: [id number]
--- NOTE | 2020-09-08 00:56 | PN ---
DATE: 09/07/2020 SUBJECTIVE: The patient was seen today met with the staff. Chart was reviewed and also covering for Dr. Crandall. The patient apparently has not presented with any major problems today. The patient did not get his Prozac because of the sedation. The patient's affect improved. The patient's gait is steady. Staff reports no major behavior problems. PHYSICAL EXAMINATION: VITAL SIGNS: Stable. The patient is not having any major medical issues at this time. The patient's medication reviewed. LABORATORY DATA: Reviewed. ASSESSMENT: Major neurocognitive disorder, most likely Alzheimer's, vascular with delusions, depression and behavioral disturbances. PLAN: To continue with the current treatment plan. Length of stay [address]: Romana TID: [id number]
[2020-09-08 05:39] VITALS: BP 122/74
[2020-09-08] MEDS: PANTOPRAZOLE 40 MG TABLET. PO SCH (08:58)
[2020-09-08] MEDS: ASPIRIN CHEWABLE 81 MG TABLET. PO SCH (08:58)
[2020-09-08] MEDS: OMEGA-3 FATTY ACIDS/FISH OIL 1,000 MG CAPSULE. PO SCH (08:58)
[2020-09-08] MEDS: CETIRIZINE HCL 10 MG TABLET PO SCH (08:59)
[2020-09-08] MEDS: MULTIVITAMIN with MINERAL TABLET. PO SCH (08:59)
[2020-09-08 16:00] VITALS: BP 141/91
[2020-09-08 19:46] VITALS: BP 110/73
[2020-09-08] MEDS: TAMSULOSIN 0.4 MG CAP.ER.24H. PO SCH (20:24)
[2020-09-08] MEDS: ATORVASTATIN CALCIUM 20 MG TABLET PO SCH (20:24)
--- NOTE | 2020-09-08 22:37 | PN ---
DATE: 09/08/2020 SUBJECTIVE: The patient was seen today met with the staff, chart reviewed, also participated in a treatment review meeting. The patient's behavior remains the same. Some improvement. He is less drowsy, did not have any falls. The patient continues to be confused tend to wander. OBSERVATION: VITAL SIGNS: Temperature 97.1, blood pressure 141/91, pulse 72, respirations 20, O2 sat 96%. MEDICATIONS: Reviewed, not having any side effects. LABORATORY DATA: The patient's lab reviewed. ASSESSMENT: Major neurocognitive disorder, most likely Alzheimer's, vascular with delusions, depression and behavioral disturbances. PLAN: To continue with the treatment. LENGTH OF STAY: [address]: Romana TID: [phone]
[2020-09-09 05:57] VITALS: BP 125/76
[2020-09-09] MEDS: PANTOPRAZOLE 40 MG TABLET. PO SCH (08:01)
[2020-09-09] MEDS: CETIRIZINE HCL 10 MG TABLET PO SCH (08:01)
[2020-09-09] MEDS: OMEGA-3 FATTY ACIDS/FISH OIL 1,000 MG CAPSULE. PO SCH (08:01)
[2020-09-09] MEDS: ASPIRIN CHEWABLE 81 MG TABLET. PO SCH (08:01)
[2020-09-09] MEDS: MULTIVITAMIN with MINERAL TABLET. PO SCH (08:01)
[2020-09-09 15:37] VITALS: BP 96/61
[2020-09-09] MEDS: ATORVASTATIN CALCIUM 20 MG TABLET PO SCH (20:02)
[2020-09-09] MEDS: TAMSULOSIN 0.4 MG CAP.ER.24H. PO SCH (20:02)
--- NOTE | 2020-09-09 23:45 | PN ---
DATE: 09/09/2020 SUBJECTIVE: The patient was seen today, met with the staff, chart reviewed. The patient continues to show improvement and compliant with the medications. The patient is no longer exhibiting any drowsiness. OBSERVATION: VITAL SIGNS: Temperature 98.0, blood pressure 125/76, pulse 85, respirations 14, O2 sat 98%. Slept about 7 hours last night. The patient's appetite improved. MEDICATIONS: The patient's medications reviewed. Currently on Prozac 20 mg daily and olanzapine 2.5 mg q.2 hours p.r.n. LABORATORY DATA: The patient's lab reviewed. The patient is not having any side effects to medications. ASSESSMENT: Major neurocognitive disorder, most likely Alzheimer's, vascular with delusions, depression and behavioral disturbances. PLAN: To continue with the treatment. LENGTH OF STAY: 3-[address]: Romana TID: [id number]
[2020-09-10 06:10] VITALS: BP 105/63
[2020-09-10] MEDS: ASPIRIN CHEWABLE 81 MG TABLET. PO SCH (08:04)
[2020-09-10] MEDS: MULTIVITAMIN with MINERAL TABLET. PO SCH (08:04)
[2020-09-10] MEDS: CETIRIZINE HCL 10 MG TABLET PO SCH (08:04)
[2020-09-10] MEDS: PANTOPRAZOLE 40 MG TABLET. PO SCH (08:04)
[2020-09-10] MEDS: OMEGA-3 FATTY ACIDS/FISH OIL 1,000 MG CAPSULE. PO SCH (08:05)
[2020-09-10 15:55] VITALS: BP 107/69
[2020-09-10] MEDS: TAMSULOSIN 0.4 MG CAP.ER.24H. PO SCH (20:07)
[2020-09-10] MEDS: ATORVASTATIN CALCIUM 20 MG TABLET PO SCH (20:07)
--- NOTE | 2020-09-11 02:17 | PN ---
DATE: 09/10/2020 SUBJECTIVE: The patient was seen today, met with the staff, chart reviewed. Staff reports no major behavior problems, pleasant and compliant with the medications. The patient is still confused and difficult to redirect at times. OBSERVATION: VITAL SIGNS: Temperature 98.4, blood pressure 105/63, pulse 70, respirations 14, O2 sat 98%. Slept about 6 hours last night. The patient's appetite improved. Staff reports no falls. CURRENT MEDICATIONS: The patient's medications reviewed, not having any side effects. LABORATORY DATA: The patient's lab reviewed. ASSESSMENT: Major neurocognitive disorder, most likely Alzheimer's, vascular with delusions, depression and behavioral disturbances. PLAN: To continue with treatment. LENGTH OF STAY: Three to five days. MELVIN/ESA/LYNDSAY DR: MELVIN/ghada TID: [id number]
[2020-09-11 05:55] VITALS: BP 103/68
[2020-09-11] MEDS: PANTOPRAZOLE 40 MG TABLET. PO SCH (08:06)
[2020-09-11] MEDS: ASPIRIN CHEWABLE 81 MG TABLET. PO SCH (08:06)
[2020-09-11] MEDS: CETIRIZINE HCL 10 MG TABLET PO SCH (08:06)
[2020-09-11] MEDS: MULTIVITAMIN with MINERAL TABLET. PO SCH (08:06)
[2020-09-11] MEDS: OMEGA-3 FATTY ACIDS/FISH OIL 1,000 MG CAPSULE. PO SCH (08:06)
[2020-09-11 10:24] LABS: BASO # 0.1 x10^3/uL (0.0-0.2); BASO % 1 % (0-3); EOS # 0.2 x10^3/uL (0.0-0.7); EOS % 4 % (0-3); HEMATOCRIT 34.9 % (39.0-53.0); HEMOGLOBIN 11.5 g/dL (13.0-17.5); LYMPH % 15 % (24-48); MEAN CORPUSCULAR HEMOGLOBIN 30 pg (25-35); MEAN CORPUSCULAR HGB CONC 33 g/dL (31-37); MEAN CORPUSCULAR VOLUME 92 fL (79-100); MONO # 0.7 x10^3/uL (0.0-1.1); MONO % 10 % (0-9); NEUT # 4.7 x10^3uL (1.8-7.7); NEUT % 70 % (31-73); PLATELET COUNT 296 x10^3/uL (140-400); RED CELL DISTRIBUTION WIDTH 14.4 % (11.5-14.5); WHITE BLOOD COUNT 6.8 x10^3/uL (4.0-11.0)
[2020-09-11 10:40] LABS: ALBUMIN 3.4 g/dL (3.4-5.0); CALCIUM 8.7 mg/dL (8.5-10.1); CREATININE 1.4 mg/dL (0.7-1.3); GFR 49.7; POTASSIUM 4.2 mmol/L (3.5-5.1); TOTAL BILIRUBIN 0.7 mg/dL (0.2-1.0); TOTAL PROTEIN 6.8 g/dL (6.4-8.2)
[2020-09-11 15:45] VITALS: BP 132/82
[2020-09-11] MEDS: TAMSULOSIN 0.4 MG CAP.ER.24H. PO SCH (20:02)
[2020-09-11] MEDS: ATORVASTATIN CALCIUM 20 MG TABLET PO SCH (20:02)
--- NOTE | 2020-09-12 00:50 | PN ---
DATE: 09/11/2020 SUBJECTIVE: The patient was seen today, met with the staff, chart reviewed. Staff reports no major behavior problems. He is isolative to staff. The patient is able to walk. No recent falls. Also, his visited him today. OBSERVATION: VITAL SIGNS: Temperature 97.8, blood pressure 103/68, pulse 72, respirations 18, O2 sat 98%. GENERAL: Slept about 5 hours last night. The patient's appetite is fair. CURRENT MEDICATIONS: The patient's medications reviewed not having any side effects. LABORATORY DATA: The patient's lab reviewed. ASSESSMENT: Major neurocognitive disorder, most likely Alzheimer's, vascular with delusions, depression and behavioral disturbances. PLAN: To continue with the treatment. LENGTH OF STAY: Three to five days. TONY DR: Romana TID: [id number]
[2020-09-12 05:34] VITALS: BP 105/63
[2020-09-12] MEDS: CETIRIZINE HCL 10 MG TABLET PO SCH (08:12)
[2020-09-12] MEDS: PANTOPRAZOLE 40 MG TABLET. PO SCH (08:12)
[2020-09-12] MEDS: MULTIVITAMIN with MINERAL TABLET. PO SCH (08:12)
[2020-09-12] MEDS: ASPIRIN CHEWABLE 81 MG TABLET. PO SCH (08:12)
[2020-09-12] MEDS: OMEGA-3 FATTY ACIDS/FISH OIL 1,000 MG CAPSULE. PO SCH (08:12)
[2020-09-12 15:37] VITALS: BP 110/65
[2020-09-12] MEDS: TAMSULOSIN 0.4 MG CAP.ER.24H. PO SCH (20:29)
[2020-09-12] MEDS: ATORVASTATIN CALCIUM 20 MG TABLET PO SCH (20:29)
--- NOTE | 2020-09-12 21:49 | PDOC ---
Exam Note: Fercho Note: Please also refer to the separate dictated note~for this date of service dictated separately.~Patient seen individually. Discussed the patient with Nursing staff reviewed the chart.~Reviewed interim history and current functioning. Reviewed vital signs,~Labs/ Radiology~and current medications noted below. Continue current treatment with the changes noted in the dictated addendum note Assessment: Vital Signs/I&O: Vital Signs Date Time Temp Pulse Resp B/P (MAP) Pulse Ox O2 Delivery O2 Flow Rate FiO2 09/12/20 15:37 98.6 69 18 110/65 (80) 95 09/11/20 05:55 Room Air I & O 09/11/20 09/11/20 09/12/20 15:00 23:00 07:00 Intake Total 790 ml 360 ml Balance 790 ml 360 ml Current Medications: Meds: Current Medications Medications (Trade) Dose Ordered Sig/Ashvin Route PRN Reason Start Time Stop Time Status Last Admin Dose Admin Acetaminophen (Tylenol) 650 mg PRN Q6HRS PRN PO MILD PAIN / TEMP > 100.3'F 08/24/20 18:15 09/04/20 08:58 Multi-Ingredient Ointment (Analgesic [place]) 1 césar PRN QID PRN TP MUSCLE PAIN 08/24/20 18:15 Al Hydroxide/Mg Hydroxide (Mylanta Plus Xs) 15 ml PRN AFTMEALHC PRN PO DYSPEPSIA 08/24/20 18:15 Magnesium Hydroxide (Milk Of Magnesia) 2,400 mg PRN QHS PRN PO CONSTIPATION 08/24/20 18:15 Aspirin (Aspirin Chewable) 81 mg DAILY PO 08/25/20 09:00 09/12/20 08:12 Cetirizine HCl (ZyrTEC) 10 mg DAILY08 PO 08/25/20 08:00 09/12/20 08:12 Donepezil HCl (Aricept) 23 mg QHS PO 08/24/20 21:00 08/28/20 15:38 DC 08/27/20 20:34 Fluoxetine HCl (PROzac) 20 mg DAILY PO 08/25/20 09:00 09/12/20 08:12 Lorazepam (Ativan) 1 mg PRN Q4HRS PRN PO ANXIETY / AGITATION 08/24/20 18:45 09/04/20 16:12 DC 09/04/20 01:29 Atorvastatin Calcium (Lipitor) 40 mg QHS PO 08/24/20 21:00 09/12/20 20:29 Pantoprazole Sodium (Protonix) 40 mg DAILY08 PO 08/25/20 08:00 09/12/20 08:12 Multivitamins/ Calcium (Thera-M Plus) 1 tab DAILY PO 08/25/20 09:00 09/12/20 08:12 Mupirocin (Bactroban) 1 césar BID92 TP 08/25/20 09:00 09/03/20 12:35 DC 09/01/20 14:00 Fish Oil (Fish Oil) 1,000 mg DAILY PO 08/25/20 09:00 09/12/20 08:12 Olanzapine (ZyPREXA ZYDIS) 2.5 mg PRN Q2HR PRN PO PSYCHOSIS 08/24/20 19:45 09/05/20 15:31 Sertraline HCl (Zoloft) 25 mg DAILY PO 08/26/20 09:00 08/28/20 21:00 DC 08/28/20 08:37 Sertraline HCl (Zoloft) 50 mg DAILY PO 08/29/20 09:00 09/06/20 18:40 DC 09/04/20 08:58 Tamsulosin HCl (Flomax) 0.4 mg QHS PO 08/28/20 21:00 09/12/20 20:29 Mupirocin (Bactroban) 1 césar PRN BID PRN TP RASH 09/03/20 12:45 Diphenhydramine HCl (Benadryl) 50 mg 1X ONCE PO 09/04/20 21:00 09/04/20 21:01 DC 09/04/20 21:21 I have reviewed the current psychotropics carefully including drug interactions. Risk benefit ratio favors no change other than as noted in my dictated progress note. Diagnosis: Problems: (1) Impulse control disorder, unspecified (2) Anxiety disorder, unspecified (3) Dementia, vascular, with depression (4) Dementia, vascular, with delusions (5) Dementia in Alzheimer's disease with depression (6) Dementia in Alzheimer's disease with delusions (7) Dementia of the Alzheimer's type with early onset with behavioral disturbance (8) Major neurocognitive disorder VERENA AGUSTIN MD September 12, 2020 21:49
[2020-09-13 05:39] VITALS: BP 114/72
[2020-09-13] MEDS: ASPIRIN CHEWABLE 81 MG TABLET. PO SCH (08:28)
[2020-09-13] MEDS: PANTOPRAZOLE 40 MG TABLET. PO SCH (08:28)
[2020-09-13] MEDS: OMEGA-3 FATTY ACIDS/FISH OIL 1,000 MG CAPSULE. PO SCH (08:28)
[2020-09-13] MEDS: MULTIVITAMIN with MINERAL TABLET. PO SCH (08:28)
[2020-09-13] MEDS: CETIRIZINE HCL 10 MG TABLET PO SCH (08:29)
[2020-09-13 15:39] VITALS: BP 111/71
[2020-09-13] MEDS: ATORVASTATIN CALCIUM 20 MG TABLET PO SCH (20:34)
[2020-09-13] MEDS: TAMSULOSIN 0.4 MG CAP.ER.24H. PO SCH (20:34)
--- NOTE | 2020-09-13 21:39 | PDOC ---
Exam Note: Fercho Note: Please also refer to the separate dictated note~for this date of service dictated separately.~Patient seen individually. Discussed the patient with Nursing staff reviewed the chart.~Reviewed interim history and current functioning. Reviewed vital signs,~Labs/ Radiology~and current medications noted below. Continue current treatment with the changes noted in the dictated addendum note Assessment: Vital Signs/I&O: Vital Signs Date Time Temp Pulse Resp B/P (MAP) Pulse Ox O2 Delivery O2 Flow Rate FiO2 09/13/20 15:39 97.6 80 16 111/71 (84) 97 09/11/20 05:55 Room Air I & O 09/12/20 09/12/20 09/13/20 15:00 23:00 07:00 Intake Total 840 ml 480 ml Balance 840 ml 480 ml Current Medications: Meds: Current Medications Medications (Trade) Dose Ordered Sig/Ashvin Route PRN Reason Start Time Stop Time Status Last Admin Dose Admin Acetaminophen (Tylenol) 650 mg PRN Q6HRS PRN PO MILD PAIN / TEMP > 100.3'F 08/24/20 18:15 09/04/20 08:58 Multi-Ingredient Ointment (Analgesic [place]) 1 césar PRN QID PRN TP MUSCLE PAIN 08/24/20 18:15 Al Hydroxide/Mg Hydroxide (Mylanta Plus Xs) 15 ml PRN AFTMEALHC PRN PO DYSPEPSIA 08/24/20 18:15 Magnesium Hydroxide (Milk Of Magnesia) 2,400 mg PRN QHS PRN PO CONSTIPATION 08/24/20 18:15 Aspirin (Aspirin Chewable) 81 mg DAILY PO 08/25/20 09:00 09/13/20 08:28 Cetirizine HCl (ZyrTEC) 10 mg DAILY08 PO 08/25/20 08:00 09/13/20 08:29 Donepezil HCl (Aricept) 23 mg QHS PO 08/24/20 21:00 08/28/20 15:38 DC 08/27/20 20:34 Fluoxetine HCl (PROzac) 20 mg DAILY PO 08/25/20 09:00 09/13/20 08:28 Lorazepam (Ativan) 1 mg PRN Q4HRS PRN PO ANXIETY / AGITATION 08/24/20 18:45 09/04/20 16:12 DC 09/04/20 01:29 Atorvastatin Calcium (Lipitor) 40 mg QHS PO 08/24/20 21:00 09/13/20 20:34 Pantoprazole Sodium (Protonix) 40 mg DAILY08 PO 08/25/20 08:00 09/13/20 08:28 Multivitamins/ Calcium (Thera-M Plus) 1 tab DAILY PO 08/25/20 09:00 09/13/20 08:28 Mupirocin (Bactroban) 1 césar BID92 TP 08/25/20 09:00 09/03/20 12:35 DC 09/01/20 14:00 Fish Oil (Fish Oil) 1,000 mg DAILY PO 08/25/20 09:00 09/13/20 08:28 Olanzapine (ZyPREXA ZYDIS) 2.5 mg PRN Q2HR PRN PO PSYCHOSIS 08/24/20 19:45 09/05/20 15:31 Sertraline HCl (Zoloft) 25 mg DAILY PO 08/26/20 09:00 08/28/20 21:00 DC 08/28/20 08:37 Sertraline HCl (Zoloft) 50 mg DAILY PO 08/29/20 09:00 09/06/20 18:40 DC 09/04/20 08:58 Tamsulosin HCl (Flomax) 0.4 mg QHS PO 08/28/20 21:00 09/13/20 20:34 Mupirocin (Bactroban) 1 césar PRN BID PRN TP RASH 09/03/20 12:45 Diphenhydramine HCl (Benadryl) 50 mg 1X ONCE PO 09/04/20 21:00 09/04/20 21:01 DC 09/04/20 21:21 I have reviewed the current psychotropics carefully including drug interactions. Risk benefit ratio favors no change other than as noted in my dictated progress note. Diagnosis: Problems: (1) Impulse control disorder, unspecified (2) Anxiety disorder, unspecified (3) Dementia, vascular, with depression (4) Dementia, vascular, with delusions (5) Dementia in Alzheimer's disease with depression (6) Dementia in Alzheimer's disease with delusions (7) Dementia of the Alzheimer's type with early onset with behavioral disturbance (8) Major neurocognitive disorder VERENA AGUSTIN MD September 13, 2020 21:38
[2020-09-14 05:25] VITALS: BP 102/63
--- NOTE | 2020-09-14 07:09 | PDOC ---
Exam Note: Fercho Note: This note is a late entry for 08/26/2020 covers elements not covered in my initial note. Subjective: This note was initially completed on 08/26/2020 but cannot be retrieved in the electronic medical system and is being re-dictated today 09/13/2020. The patient was seen individually in the evening of 08/26/2020 with May ABREU, discussed and reviewed the chart. He did well previous evening. He has been somewhat flat, withdrawn, confused. No clear psychotic symptoms, suicidal or homicidal ideation noted. Review of Systems: No CV, , pulmonary, ENT system symptoms on review. Mental Status Exam: The patient is oriented to himself. Insight and judgment, recent and remote memory, attention and concentration fund of knowledge is poor consistent with his diagnoses. Laboratory Data: Reviewed. Impression: Major neurocognitive disorder Alzheimer vascular with delusion, depression, behavioral disturbance. Anxiety disorder unspecified. Impulse control disorder unspecified. Plan: Continue psychotropics from initial note. Adjust further as clinically indicated. Dr. Dewey will cover for me starting from 08/27/2020 at 8 a.m. till 09/11/2020 at 8 p.m. Assessment: Vital Signs/I&O: Vital Signs Date Time Temp Pulse Resp B/P (MAP) Pulse Ox O2 Delivery O2 Flow Rate FiO2 09/14/20 05:25 97.7 79 16 102/63 (76) 97 Room Air I & O 09/13/20 09/13/20 09/14/20 15:00 23:00 07:00 Intake Total 840 ml 600 ml Balance 840 ml 600 ml Current Medications: Meds: Current Medications Medications (Trade) Dose Ordered Sig/Ashvin Route PRN Reason Start Time Stop Time Status Last Admin Dose Admin Acetaminophen (Tylenol) 650 mg PRN Q6HRS PRN PO MILD PAIN / TEMP > 100.3'F 08/24/20 18:15 09/04/20 08:58 Multi-Ingredient Ointment (Analgesic [place]) 1 césar PRN QID PRN TP MUSCLE PAIN 08/24/20 18:15 Al Hydroxide/Mg Hydroxide (Mylanta Plus Xs) 15 ml PRN AFTMEALHC PRN PO DYSPEPSIA 08/24/20 18:15 Magnesium Hydroxide (Milk Of Magnesia) 2,400 mg PRN QHS PRN PO CONSTIPATION 08/24/20 18:15 Aspirin (Aspirin Chewable) 81 mg DAILY PO 08/25/20 09:00 09/13/20 08:28 Cetirizine HCl (ZyrTEC) 10 mg DAILY08 PO 08/25/20 08:00 09/13/20 08:29 Donepezil HCl (Aricept) 23 mg QHS PO 08/24/20 21:00 08/28/20 15:38 DC 08/27/20 20:34 Fluoxetine HCl (PROzac) 20 mg DAILY PO 08/25/20 09:00 09/13/20 08:28 Lorazepam (Ativan) 1 mg PRN Q4HRS PRN PO ANXIETY / AGITATION 08/24/20 18:45 09/04/20 16:12 DC 09/04/20 01:29 Atorvastatin Calcium (Lipitor) 40 mg QHS PO 08/24/20 21:00 09/13/20 20:34 Pantoprazole Sodium (Protonix) 40 mg DAILY08 PO 08/25/20 08:00 09/13/20 08:28 Multivitamins/ Calcium (Thera-M Plus) 1 tab DAILY PO 08/25/20 09:00 09/13/20 08:28 Mupirocin (Bactroban) 1 césar BID92 TP 08/25/20 09:00 09/03/20 12:35 DC 09/01/20 14:00 Fish Oil (Fish Oil) 1,000 mg DAILY PO 08/25/20 09:00 09/13/20 08:28 Olanzapine (ZyPREXA ZYDIS) 2.5 mg PRN Q2HR PRN PO PSYCHOSIS 08/24/20 19:45 09/05/20 15:31 Sertraline HCl (Zoloft) 25 mg DAILY PO 08/26/20 09:00 08/28/20 21:00 DC 08/28/20 08:37 Sertraline HCl (Zoloft) 50 mg DAILY PO 08/29/20 09:00 09/06/20 18:40 DC 09/04/20 08:58 Tamsulosin HCl (Flomax) 0.4 mg QHS PO 08/28/20 21:00 09/13/20 20:34 Mupirocin (Bactroban) 1 césar PRN BID PRN TP RASH 09/03/20 12:45 Diphenhydramine HCl (Benadryl) 50 mg 1X ONCE PO 09/04/20 21:00 09/04/20 21:01 DC 09/04/20 21:21 I have reviewed the current psychotropics carefully including drug interactions. Risk benefit ratio favors no change other than as noted in my dictated progress note. Diagnosis: Problems: (1) Impulse control disorder, unspecified (2) Anxiety disorder, unspecified (3) Dementia, vascular, with depression (4) Dementia, vascular, with delusions (5) Dementia in Alzheimer's disease with depression (6) Dementia in Alzheimer's disease with delusions (7) Dementia of the Alzheimer's type with early onset with behavioral disturbance (8) Major neurocognitive disorder VERENA AGUSTIN MD September 14, 2020 07:09
[2020-09-14] MEDS: OMEGA-3 FATTY ACIDS/FISH OIL 1,000 MG CAPSULE. PO SCH (07:49)
[2020-09-14] MEDS: MULTIVITAMIN with MINERAL TABLET. PO SCH (07:49)
[2020-09-14] MEDS: CETIRIZINE HCL 10 MG TABLET PO SCH (07:49)
[2020-09-14] MEDS: ASPIRIN CHEWABLE 81 MG TABLET. PO SCH (07:49)
[2020-09-14] MEDS: PANTOPRAZOLE 40 MG TABLET. PO SCH (07:49)
--- NOTE | 2020-09-14 08:09 | PDOC ---
Exam Note: Fercho Note: This note is a late entry for 09/12/2020 covers elements not covered in my initial note. Subjective: The patient was seen individually in the evening of 09/12/2020 with Ivan ABREU, discussed and reviewed the chart. He slept 5-3/4 hours previous night. He has been cooperative, confused, wanders the unit, smiling, not aggressive or disruptive. He has not been posturing or physically aggressive. Review of Systems: No CV, , pulmonary, ENT system symptoms on review. Reliability poor. Mental Status Exam: The patient is oriented to himself. Insight and judgment, recent and remote memory, attention and concentration fund of knowledge is poor consistent with his diagnoses. Laboratory Data: Reviewed. Impression: Major neurocognitive disorder Alzheimer vascular with delusion, depression, behavioral disturbance. Anxiety disorder unspecified. Impulse control disorder unspecified. Plan: I have carefully reviewed the patients current psychotropics and reviewed information with Dr. Dewey who had covered for me for the past 2 weeks. Continue Prozac 20 mg a day, Zyprexa p.r.n. We may consider Depakote as a mood stabilizer depending on his progress. Assessment: Vital Signs/I&O: Vital Signs Date Time Temp Pulse Resp B/P (MAP) Pulse Ox O2 Delivery O2 Flow Rate FiO2 09/14/20 05:25 97.7 79 16 102/63 (76) 97 Room Air I & O 09/13/20 09/13/20 09/14/20 14:59 22:59 06:59 Intake Total 840 ml 600 ml Balance 840 ml 600 ml Current Medications: Meds: Current Medications Medications (Trade) Dose Ordered Sig/Ashvin Route PRN Reason Start Time Stop Time Status Last Admin Dose Admin Acetaminophen (Tylenol) 650 mg PRN Q6HRS PRN PO MILD PAIN / TEMP > 100.3'F 08/24/20 18:15 09/04/20 08:58 Multi-Ingredient Ointment (Analgesic [place]) 1 césar PRN QID PRN TP MUSCLE PAIN 08/24/20 18:15 Al Hydroxide/Mg Hydroxide (Mylanta Plus Xs) 15 ml PRN AFTMEALHC PRN PO DYSPEPSIA 08/24/20 18:15 Magnesium Hydroxide (Milk Of Magnesia) 2,400 mg PRN QHS PRN PO CONSTIPATION 08/24/20 18:15 Aspirin (Aspirin Chewable) 81 mg DAILY PO 08/25/20 09:00 09/14/20 07:49 Cetirizine HCl (ZyrTEC) 10 mg DAILY08 PO 08/25/20 08:00 09/14/20 07:49 Donepezil HCl (Aricept) 23 mg QHS PO 08/24/20 21:00 08/28/20 15:38 DC 08/27/20 20:34 Fluoxetine HCl (PROzac) 20 mg DAILY PO 08/25/20 09:00 09/14/20 07:49 Lorazepam (Ativan) 1 mg PRN Q4HRS PRN PO ANXIETY / AGITATION 08/24/20 18:45 09/04/20 16:12 DC 09/04/20 01:29 Atorvastatin Calcium (Lipitor) 40 mg QHS PO 08/24/20 21:00 09/13/20 20:34 Pantoprazole Sodium (Protonix) 40 mg DAILY08 PO 08/25/20 08:00 09/14/20 07:49 Multivitamins/ Calcium (Thera-M Plus) 1 tab DAILY PO 08/25/20 09:00 09/14/20 07:49 Mupirocin (Bactroban) 1 césar BID92 TP 08/25/20 09:00 09/03/20 12:35 DC 09/01/20 14:00 Fish Oil (Fish Oil) 1,000 mg DAILY PO 08/25/20 09:00 09/14/20 07:49 Olanzapine (ZyPREXA ZYDIS) 2.5 mg PRN Q2HR PRN PO PSYCHOSIS 08/24/20 19:45 09/05/20 15:31 Sertraline HCl (Zoloft) 25 mg DAILY PO 08/26/20 09:00 08/28/20 21:00 DC 08/28/20 08:37 Sertraline HCl (Zoloft) 50 mg DAILY PO 08/29/20 09:00 09/06/20 18:40 DC 09/04/20 08:58 Tamsulosin HCl (Flomax) 0.4 mg QHS PO 08/28/20 21:00 09/13/20 20:34 Mupirocin (Bactroban) 1 césar PRN BID PRN TP RASH 09/03/20 12:45 Diphenhydramine HCl (Benadryl) 50 mg 1X ONCE PO 09/04/20 21:00 09/04/20 21:01 DC 09/04/20 21:21 I have reviewed the current psychotropics carefully including drug interactions. Risk benefit ratio favors no change other than as noted in my dictated progress note. Diagnosis: Problems: (1) Impulse control disorder, unspecified (2) Anxiety disorder, unspecified (3) Dementia, vascular, with depression (4) Dementia, vascular, with delusions (5) Dementia in Alzheimer's disease with depression (6) Dementia in Alzheimer's disease with delusions (7) Dementia of the Alzheimer's type with early onset with behavioral disturbance (8) Major neurocognitive disorder VERENA AGUSTIN MD September 14, 2020 08:09
--- NOTE | 2020-09-14 08:40 | PDOC ---
Exam Note: Fercho Note: This note is a late entry for 09/13/2020 covers elements not covered in my initial note. Subjective: The patient was seen individually in the evening of 09/13/2020 with Ivan ABREU, discussed and reviewed the chart. He slept 6-3/4 hours previous night. He is confused, wandering, smiling. I met with him, walking up and down the hallway. Review of Systems: No CV, , pulmonary, ENT system symptoms on review. Reliability poor. Mental Status Exam: The patient is oriented to himself. Insight and judgment, recent and remote memory, attention and concentration fund of knowledge is poor consistent with his diagnoses. Laboratory Data: Reviewed. Impression: Major neurocognitive disorder Alzheimer vascular with delusion, depression, behavioral disturbance. Anxiety disorder unspecified. Impulse control disorder unspecified. Plan: Continue current psychotropics from initial note. Assessment: Vital Signs/I&O: Vital Signs Date Time Temp Pulse Resp B/P (MAP) Pulse Ox O2 Delivery O2 Flow Rate FiO2 09/14/20 05:25 97.7 79 16 102/63 (76) 97 Room Air I & O 09/13/20 09/13/20 09/14/20 15:00 23:00 07:00 Intake Total 840 ml 600 ml Balance 840 ml 600 ml Current Medications: Meds: Current Medications Medications (Trade) Dose Ordered Sig/Ashvin Route PRN Reason Start Time Stop Time Status Last Admin Dose Admin Acetaminophen (Tylenol) 650 mg PRN Q6HRS PRN PO MILD PAIN / TEMP > 100.3'F 08/24/20 18:15 09/04/20 08:58 Multi-Ingredient Ointment (Analgesic [place]) 1 césar PRN QID PRN TP MUSCLE PAIN 08/24/20 18:15 Al Hydroxide/Mg Hydroxide (Mylanta Plus Xs) 15 ml PRN AFTMEALHC PRN PO DYSPEPSIA 08/24/20 18:15 Magnesium Hydroxide (Milk Of Magnesia) 2,400 mg PRN QHS PRN PO CONSTIPATION 08/24/20 18:15 Aspirin (Aspirin Chewable) 81 mg DAILY PO 08/25/20 09:00 09/14/20 07:49 Cetirizine HCl (ZyrTEC) 10 mg DAILY08 PO 08/25/20 08:00 09/14/20 07:49 Donepezil HCl (Aricept) 23 mg QHS PO 08/24/20 21:00 08/28/20 15:38 DC 08/27/20 20:34 Fluoxetine HCl (PROzac) 20 mg DAILY PO 08/25/20 09:00 09/14/20 07:49 Lorazepam (Ativan) 1 mg PRN Q4HRS PRN PO ANXIETY / AGITATION 08/24/20 18:45 09/04/20 16:12 DC 09/04/20 01:29 Atorvastatin Calcium (Lipitor) 40 mg QHS PO 08/24/20 21:00 09/13/20 20:34 Pantoprazole Sodium (Protonix) 40 mg DAILY08 PO 08/25/20 08:00 09/14/20 07:49 Multivitamins/ Calcium (Thera-M Plus) 1 tab DAILY PO 08/25/20 09:00 09/14/20 07:49 Mupirocin (Bactroban) 1 césar BID92 TP 08/25/20 09:00 09/03/20 12:35 DC 09/01/20 14:00 Fish Oil (Fish Oil) 1,000 mg DAILY PO 08/25/20 09:00 09/14/20 07:49 Olanzapine (ZyPREXA ZYDIS) 2.5 mg PRN Q2HR PRN PO PSYCHOSIS 08/24/20 19:45 09/05/20 15:31 Sertraline HCl (Zoloft) 25 mg DAILY PO 08/26/20 09:00 08/28/20 21:00 DC 08/28/20 08:37 Sertraline HCl (Zoloft) 50 mg DAILY PO 08/29/20 09:00 09/06/20 18:40 DC 09/04/20 08:58 Tamsulosin HCl (Flomax) 0.4 mg QHS PO 08/28/20 21:00 09/13/20 20:34 Mupirocin (Bactroban) 1 césar PRN BID PRN TP RASH 09/03/20 12:45 Diphenhydramine HCl (Benadryl) 50 mg 1X ONCE PO 09/04/20 21:00 09/04/20 21:01 DC 09/04/20 21:21 I have reviewed the current psychotropics carefully including drug interactions. Risk benefit ratio favors no change other than as noted in my dictated progress note. Diagnosis: Problems: (1) Impulse control disorder, unspecified (2) Anxiety disorder, unspecified (3) Dementia, vascular, with depression (4) Dementia, vascular, with delusions (5) Dementia in Alzheimer's disease with depression (6) Dementia in Alzheimer's disease with delusions (7) Dementia of the Alzheimer's type with early onset with behavioral disturbance (8) Major neurocognitive disorder VERENA AGUSTIN MD September 14, 2020 08:40
[2020-09-14 15:52] VITALS: BP 147/89
[2020-09-14] MEDS: TAMSULOSIN 0.4 MG CAP.ER.24H. PO SCH (19:55)
[2020-09-14] MEDS: ATORVASTATIN CALCIUM 20 MG TABLET PO SCH (19:55)
--- NOTE | 2020-09-14 22:03 | PDOC ---
Exam Note: Fercho Note: Please also refer to the separate dictated note~for this date of service dictated separately.~Patient seen individually. Discussed the patient with Nursing staff reviewed the chart.~Reviewed interim history and current functioning. Reviewed vital signs,~Labs/ Radiology~and current medications noted below. Continue current treatment with the changes noted in the dictated addendum note Assessment: Vital Signs/I&O: Vital Signs Date Time Temp Pulse Resp B/P (MAP) Pulse Ox O2 Delivery O2 Flow Rate FiO2 09/14/20 15:52 98.1 97 18 147/89 (108) 96 09/14/20 05:25 Room Air I & O 09/13/20 09/13/20 09/14/20 15:00 23:00 07:00 Intake Total 840 ml 600 ml Balance 840 ml 600 ml Current Medications: Meds: Current Medications Medications (Trade) Dose Ordered Sig/Ashvin Route PRN Reason Start Time Stop Time Status Last Admin Dose Admin Acetaminophen (Tylenol) 650 mg PRN Q6HRS PRN PO MILD PAIN / TEMP > 100.3'F 08/24/20 18:15 09/04/20 08:58 Multi-Ingredient Ointment (Analgesic [place]) 1 césar PRN QID PRN TP MUSCLE PAIN 08/24/20 18:15 Al Hydroxide/Mg Hydroxide (Mylanta Plus Xs) 15 ml PRN AFTMEALHC PRN PO DYSPEPSIA 08/24/20 18:15 Magnesium Hydroxide (Milk Of Magnesia) 2,400 mg PRN QHS PRN PO CONSTIPATION 08/24/20 18:15 Aspirin (Aspirin Chewable) 81 mg DAILY PO 08/25/20 09:00 09/14/20 07:49 Cetirizine HCl (ZyrTEC) 10 mg DAILY08 PO 08/25/20 08:00 09/14/20 07:49 Donepezil HCl (Aricept) 23 mg QHS PO 08/24/20 21:00 08/28/20 15:38 DC 08/27/20 20:34 Fluoxetine HCl (PROzac) 20 mg DAILY PO 08/25/20 09:00 09/14/20 07:49 Lorazepam (Ativan) 1 mg PRN Q4HRS PRN PO ANXIETY / AGITATION 08/24/20 18:45 09/04/20 16:12 DC 09/04/20 01:29 Atorvastatin Calcium (Lipitor) 40 mg QHS PO 08/24/20 21:00 09/14/20 19:55 Pantoprazole Sodium (Protonix) 40 mg DAILY08 PO 08/25/20 08:00 09/14/20 07:49 Multivitamins/ Calcium (Thera-M Plus) 1 tab DAILY PO 08/25/20 09:00 09/14/20 07:49 Mupirocin (Bactroban) 1 césar BID92 TP 08/25/20 09:00 09/03/20 12:35 DC 09/01/20 14:00 Fish Oil (Fish Oil) 1,000 mg DAILY PO 08/25/20 09:00 09/14/20 07:49 Olanzapine (ZyPREXA ZYDIS) 2.5 mg PRN Q2HR PRN PO PSYCHOSIS 08/24/20 19:45 09/05/20 15:31 Sertraline HCl (Zoloft) 25 mg DAILY PO 08/26/20 09:00 08/28/20 21:00 DC 08/28/20 08:37 Sertraline HCl (Zoloft) 50 mg DAILY PO 08/29/20 09:00 09/06/20 18:40 DC 09/04/20 08:58 Tamsulosin HCl (Flomax) 0.4 mg QHS PO 08/28/20 21:00 09/14/20 19:55 Mupirocin (Bactroban) 1 césar PRN BID PRN TP RASH 09/03/20 12:45 Diphenhydramine HCl (Benadryl) 50 mg 1X ONCE PO 09/04/20 21:00 09/04/20 21:01 DC 09/04/20 21:21 I have reviewed the current psychotropics carefully including drug interactions. Risk benefit ratio favors no change other than as noted in my dictated progress note. Diagnosis: Problems: (1) Impulse control disorder, unspecified (2) Anxiety disorder, unspecified (3) Dementia, vascular, with depression (4) Dementia, vascular, with delusions (5) Dementia in Alzheimer's disease with depression (6) Dementia in Alzheimer's disease with delusions (7) Dementia of the Alzheimer's type with early onset with behavioral disturbance (8) Major neurocognitive disorder VERENA AGUSTIN MD September 14, 2020 22:03
[2020-09-15 06:04] VITALS: BP 117/72
--- NOTE | 2020-09-15 06:41 | PDOC ---
Exam Note: Fercho Note: This note is a late entry for 09/14/2020 covers elements not covered in my initial note. Subjective: The patient was seen individually in the evening of 09/14/2020 with Ivan ABREU, discussed and reviewed the chart. He slept 7 hours previous night. The patient has been compliant with his medications. He remains confused, wanders the hallways, not aggressive, quite pleasant. Review of Systems: No CV, , pulmonary, ENT system symptoms on review. Reliability poor. Mental Status Exam: The patient is oriented to himself. I met with him in his room. Insight and judgment, recent and remote memory, attention and concentration fund of knowledge is poor consistent with his diagnoses. Laboratory Data: Reviewed. Impression: Major neurocognitive disorder Alzheimer vascular with delusion, depression, behavioral disturbance. Anxiety disorder unspecified. Impulse control disorder unspecified. Plan: Continue current psychotropics from initial note. Assessment: Vital Signs/I&O: Vital Signs Date Time Temp Pulse Resp B/P (MAP) Pulse Ox O2 Delivery O2 Flow Rate FiO2 09/15/20 06:04 97.7 76 18 117/72 (87) 98 Room Air I & O 09/14/20 09/14/20 09/15/20 15:00 23:00 07:00 Intake Total 360 ml 840 ml Balance 360 ml 840 ml Current Medications: Meds: Current Medications Medications (Trade) Dose Ordered Sig/Ashvin Route PRN Reason Start Time Stop Time Status Last Admin Dose Admin Acetaminophen (Tylenol) 650 mg PRN Q6HRS PRN PO MILD PAIN / TEMP > 100.3'F 08/24/20 18:15 09/04/20 08:58 Multi-Ingredient Ointment (Analgesic [place]) 1 césar PRN QID PRN TP MUSCLE PAIN 08/24/20 18:15 Al Hydroxide/Mg Hydroxide (Mylanta Plus Xs) 15 ml PRN AFTMEALHC PRN PO DYSPEPSIA 08/24/20 18:15 Magnesium Hydroxide (Milk Of Magnesia) 2,400 mg PRN QHS PRN PO CONSTIPATION 08/24/20 18:15 Aspirin (Aspirin Chewable) 81 mg DAILY PO 08/25/20 09:00 09/14/20 07:49 Cetirizine HCl (ZyrTEC) 10 mg DAILY08 PO 08/25/20 08:00 09/14/20 07:49 Donepezil HCl (Aricept) 23 mg QHS PO 08/24/20 21:00 08/28/20 15:38 DC 08/27/20 20:34 Fluoxetine HCl (PROzac) 20 mg DAILY PO 08/25/20 09:00 09/14/20 07:49 Lorazepam (Ativan) 1 mg PRN Q4HRS PRN PO ANXIETY / AGITATION 08/24/20 18:45 09/04/20 16:12 DC 09/04/20 01:29 Atorvastatin Calcium (Lipitor) 40 mg QHS PO 08/24/20 21:00 09/14/20 19:55 Pantoprazole Sodium (Protonix) 40 mg DAILY08 PO 08/25/20 08:00 09/14/20 07:49 Multivitamins/ Calcium (Thera-M Plus) 1 tab DAILY PO 08/25/20 09:00 09/14/20 07:49 Mupirocin (Bactroban) 1 césra BID92 TP 08/25/20 09:00 09/03/20 12:35 DC 09/01/20 14:00 Fish Oil (Fish Oil) 1,000 mg DAILY PO 08/25/20 09:00 09/14/20 07:49 Olanzapine (ZyPREXA ZYDIS) 2.5 mg PRN Q2HR PRN PO PSYCHOSIS 08/24/20 19:45 09/05/20 15:31 Sertraline HCl (Zoloft) 25 mg DAILY PO 08/26/20 09:00 08/28/20 21:00 DC 08/28/20 08:37 Sertraline HCl (Zoloft) 50 mg DAILY PO 08/29/20 09:00 09/06/20 18:40 DC 09/04/20 08:58 Tamsulosin HCl (Flomax) 0.4 mg QHS PO 08/28/20 21:00 09/14/20 19:55 Mupirocin (Bactroban) 1 césar PRN BID PRN TP RASH 09/03/20 12:45 Diphenhydramine HCl (Benadryl) 50 mg 1X ONCE PO 09/04/20 21:00 09/04/20 21:01 DC 09/04/20 21:21 I have reviewed the current psychotropics carefully including drug interactions. Risk benefit ratio favors no change other than as noted in my dictated progress note. Diagnosis: Problems: (1) Impulse control disorder, unspecified (2) Anxiety disorder, unspecified (3) Dementia, vascular, with depression (4) Dementia, vascular, with delusions (5) Dementia in Alzheimer's disease with depression (6) Dementia in Alzheimer's disease with delusions (7) Dementia of the Alzheimer's type with early onset with behavioral disturbance (8) Major neurocognitive disorder VERENA AGUSTIN MD September 15, 2020 06:41
[2020-09-15] MEDS: PANTOPRAZOLE 40 MG TABLET. PO SCH (08:15)
[2020-09-15] MEDS: CETIRIZINE HCL 10 MG TABLET PO SCH (08:15)
[2020-09-15] MEDS: MULTIVITAMIN with MINERAL TABLET. PO SCH (08:15)
[2020-09-15] MEDS: OMEGA-3 FATTY ACIDS/FISH OIL 1,000 MG CAPSULE. PO SCH (08:15)
[2020-09-15] MEDS: ASPIRIN CHEWABLE 81 MG TABLET. PO SCH (08:15)
--- NOTE | 2020-09-15 11:53 | TX PLAN ---
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 Change Sleep, Confusion/Disoriented, Poor impulse control, Other Problem in Patient's Words: I cannot care for him at home. Additional Admission Comments: According to the intake, pt was anxious, wandering, restless, insomnia, posturing [facility] staff, struck which resulted in police response Problems Active Problems: wandering restless Inactive Problems: medication compliant Pt Strengths/Limitations Ability for [place]: Poor Cognitive Functioning/Ability: Fair Communication Skills/Ability: Fair Financial Resources: Poor Insight/Judgement: Poor Intellectual Ability: Poor Physical Health: Fair Social Skills: Fair Stability in Family: Fair Stability in School/Work: Poor Verbal Skills: Fair Discharge Criteria Discharge Criteria: No need for close observ., Adequate arrangements @DC, Improved behavior, Improved mood/thought Preliminary Discharge Plan Preliminary DC Plan: Placement Needed Special Precautions Fall Risk: Low Initial D/C Plan Pt is not able to discharge home, will need placement once stable. Identified Discharge Needs: Referral for higher level of care Currently Utilized Resources Currently Utilized Resources/P: Primary Care Physician Identified Problems/Hx/Goals Objectives/Short-Term Goals Short Term Goals: Dec. Aggression, Dec. Outbursts, Medication Stabilization, Monitor Med Effects Short Term Goals in Patient's: N/A Interventions/Frequency Staff Interventions/Frequency&: Psychiatrist to assess pt at least 3x per week for medication management. Social Work to assess pt at least 2x per week to identify barriers to care and finalize discharge planning. Nursing to assess medication effects, behavior modification, and completion of 15 minute checks daily. Encourage participation in group activities (if applicable) or 1:1 engagement based off Activity Dept goals. 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 He received a Bachelors in Sociology. Community Follow-up Primary Care Physician Referrals to higher level of care Community Provider/Family Inpu: Pt has become increasingly aggressive towards his , who is caring for pt. She is not able to care for pt at home any longer. 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 Pt is pleasantly confused, calm and cooperative with cares and medications (whole). Pt is alert and oriented to self; but does not appear to be doing any exit seeking or wandering the unit. Pt does attend groups with minimal participation in that he needs assistance or is not able to answer questions but smiles at the activity staff. Pt has completed pt Medicaid application; however, it continues to be incomplete as Medicaid has requested more information. As pt continues to work on the application and SW will send out feelers for placement. WALESKA HARRELL September 15, 2020 11:53
[2020-09-15 15:46] VITALS: BP 91/70
[2020-09-15] MEDS: TAMSULOSIN 0.4 MG CAP.ER.24H. PO SCH (20:18)
[2020-09-15] MEDS: ATORVASTATIN CALCIUM 20 MG TABLET PO SCH (20:18)
--- NOTE | 2020-09-15 21:55 | PDOC ---
Exam Note: Fercho Note: Please also refer to the separate dictated note~for this date of service dictated separately.~Patient seen individually. Discussed the patient with Nursing staff reviewed the chart.~Reviewed interim history and current functioning. Reviewed vital signs,~Labs/ Radiology~and current medications noted below. Continue current treatment with the changes noted in the dictated addendum note Assessment: Vital Signs/I&O: Vital Signs Date Time Temp Pulse Resp B/P (MAP) Pulse Ox O2 Delivery O2 Flow Rate FiO2 09/15/20 15:46 97.6 90 16 91/70 (77) 96 09/15/20 06:04 Room Air I & O 09/14/20 09/14/20 09/15/20 15:00 23:00 07:00 Intake Total 360 ml 840 ml Balance 360 ml 840 ml Labs: Laboratory Tests Test 09/15/20 06:00 SARS-CoV-2 (PCR) Negative (NEGATIVE) Current Medications: Meds: Laboratory Tests Test 09/15/20 06:00 Coronavirus (COVID-19)(PCR) Negative Current Medications Medications (Trade) Dose Ordered Sig/Ashvin Route PRN Reason Start Time Stop Time Status Last Admin Dose Admin Acetaminophen (Tylenol) 650 mg PRN Q6HRS PRN PO MILD PAIN / TEMP > 100.3'F 08/24/20 18:15 09/04/20 08:58 Multi-Ingredient Ointment (Analgesic [place]) 1 césar PRN QID PRN TP MUSCLE PAIN 08/24/20 18:15 Al Hydroxide/Mg Hydroxide (Mylanta Plus Xs) 15 ml PRN AFTMEALHC PRN PO DYSPEPSIA 08/24/20 18:15 Magnesium Hydroxide (Milk Of Magnesia) 2,400 mg PRN QHS PRN PO CONSTIPATION 08/24/20 18:15 Aspirin (Aspirin Chewable) 81 mg DAILY PO 08/25/20 09:00 09/15/20 08:15 Cetirizine HCl (ZyrTEC) 10 mg DAILY08 PO 08/25/20 08:00 09/15/20 08:15 Donepezil HCl (Aricept) 23 mg QHS PO 08/24/20 21:00 08/28/20 15:38 DC 08/27/20 20:34 Fluoxetine HCl (PROzac) 20 mg DAILY PO 08/25/20 09:00 09/15/20 08:15 Lorazepam (Ativan) 1 mg PRN Q4HRS PRN PO ANXIETY / AGITATION 08/24/20 18:45 09/04/20 16:12 DC 09/04/20 01:29 Atorvastatin Calcium (Lipitor) 40 mg QHS PO 08/24/20 21:00 09/15/20 20:18 Pantoprazole Sodium (Protonix) 40 mg DAILY08 PO 08/25/20 08:00 09/15/20 08:15 Multivitamins/ Calcium (Thera-M Plus) 1 tab DAILY PO 08/25/20 09:00 09/15/20 08:15 Mupirocin (Bactroban) 1 césar BID92 TP 08/25/20 09:00 09/03/20 12:35 DC 09/01/20 14:00 Fish Oil (Fish Oil) 1,000 mg DAILY PO 08/25/20 09:00 09/15/20 08:15 Olanzapine (ZyPREXA ZYDIS) 2.5 mg PRN Q2HR PRN PO PSYCHOSIS 08/24/20 19:45 09/05/20 15:31 Sertraline HCl (Zoloft) 25 mg DAILY PO 08/26/20 09:00 08/28/20 21:00 DC 08/28/20 08:37 Sertraline HCl (Zoloft) 50 mg DAILY PO 08/29/20 09:00 09/06/20 18:40 DC 09/04/20 08:58 Tamsulosin HCl (Flomax) 0.4 mg QHS PO 08/28/20 21:00 09/15/20 20:18 Mupirocin (Bactroban) 1 césar PRN BID PRN TP RASH 09/03/20 12:45 Diphenhydramine HCl (Benadryl) 50 mg 1X ONCE PO 09/04/20 21:00 09/04/20 21:01 DC 09/04/20 21:21 I have reviewed the current psychotropics carefully including drug interactions. Risk benefit ratio favors no change other than as noted in my dictated progress note. Diagnosis: Problems: (1) Impulse control disorder, unspecified (2) Anxiety disorder, unspecified (3) Dementia, vascular, with depression (4) Dementia, vascular, with delusions (5) Dementia in Alzheimer's disease with depression (6) Dementia in Alzheimer's disease with delusions (7) Dementia of the Alzheimer's type with early onset with behavioral disturbance (8) Major neurocognitive disorder VERENA AGUSTIN MD September 15, 2020 21:55
[2020-09-16 06:03] VITALS: BP 129/75
[2020-09-16] MEDS: CETIRIZINE HCL 10 MG TABLET PO SCH (08:23)
[2020-09-16] MEDS: MULTIVITAMIN with MINERAL TABLET. PO SCH (08:23)
[2020-09-16] MEDS: ASPIRIN CHEWABLE 81 MG TABLET. PO SCH (08:23)
[2020-09-16] MEDS: PANTOPRAZOLE 40 MG TABLET. PO SCH (08:23)
[2020-09-16] MEDS: OMEGA-3 FATTY ACIDS/FISH OIL 1,000 MG CAPSULE. PO SCH (08:23)
--- NOTE | 2020-09-16 10:08 | PDOC ---
Exam Note: Fercho Note: This note is a late entry for 09/15/2020 covers elements not covered in my initial note. Subjective: The patient was reviewed in the morning of 09/15/2020 for a treatment team meeting with Niecy Naqvi, Indy Nava and Ingris (social work msw), Ingrid, activity therapy and Tala RN, discussed and reviewed the chart. He slept 5-3/4 hours previous night. The patient was seen individually in the evening. He remains confused, pleasant, cooperative, smiling, wandering the hallway, redirectable, not aggressive. Review of Systems: No CV, , pulmonary, ENT system symptoms on review. Mental Status Exam: The patient is oriented to himself. Insight and judgment, recent and remote memory, attention and concentration fund of knowledge is poor consistent with his diagnoses. Laboratory Data: Reviewed. Impression: Major neurocognitive disorder Alzheimer vascular with delusion, depression, behavioral disturbance. Anxiety disorder unspecified. Impulse control disorder unspecified. Plan: Continue current psychotropics from initial note. We discussed discharged plans. The patient is being accepted at the nursing homes but the insurance coverage for nursing facility has been a problem and social service are facilitating resolution for this. Assessment: Vital Signs/I&O: Vital Signs Date Time Temp Pulse Resp B/P (MAP) Pulse Ox O2 Delivery O2 Flow Rate FiO2 09/16/20 06:03 97.4 78 18 129/75 (93) 97 09/15/20 06:04 Room Air I & O 09/15/20 09/15/20 09/16/20 14:59 22:59 06:59 Intake Total 720 ml 370 ml Balance 720 ml 370 ml Current Medications: Meds: Current Medications Medications (Trade) Dose Ordered Sig/Ashvin Route PRN Reason Start Time Stop Time Status Last Admin Dose Admin Acetaminophen (Tylenol) 650 mg PRN Q6HRS PRN PO MILD PAIN / TEMP > 100.3'F 08/24/20 18:15 09/04/20 08:58 Multi-Ingredient Ointment (Analgesic [place]) 1 césar PRN QID PRN TP MUSCLE PAIN 08/24/20 18:15 Al Hydroxide/Mg Hydroxide (Mylanta Plus Xs) 15 ml PRN AFTMEALHC PRN PO DYSPEPSIA 08/24/20 18:15 Magnesium Hydroxide (Milk Of Magnesia) 2,400 mg PRN QHS PRN PO CONSTIPATION 08/24/20 18:15 Aspirin (Aspirin Chewable) 81 mg DAILY PO 08/25/20 09:00 09/16/20 08:23 Cetirizine HCl (ZyrTEC) 10 mg DAILY08 PO 08/25/20 08:00 09/16/20 08:23 Donepezil HCl (Aricept) 23 mg QHS PO 08/24/20 21:00 08/28/20 15:38 DC 08/27/20 20:34 Fluoxetine HCl (PROzac) 20 mg DAILY PO 08/25/20 09:00 09/16/20 08:23 Lorazepam (Ativan) 1 mg PRN Q4HRS PRN PO ANXIETY / AGITATION 08/24/20 18:45 09/04/20 16:12 DC 09/04/20 01:29 Atorvastatin Calcium (Lipitor) 40 mg QHS PO 08/24/20 21:00 09/15/20 20:18 Pantoprazole Sodium (Protonix) 40 mg DAILY08 PO 08/25/20 08:00 09/16/20 08:23 Multivitamins/ Calcium (Thera-M Plus) 1 tab DAILY PO 08/25/20 09:00 09/16/20 08:23 Mupirocin (Bactroban) 1 césar BID92 TP 08/25/20 09:00 09/03/20 12:35 DC 09/01/20 14:00 Fish Oil (Fish Oil) 1,000 mg DAILY PO 08/25/20 09:00 09/16/20 08:23 Olanzapine (ZyPREXA ZYDIS) 2.5 mg PRN Q2HR PRN PO PSYCHOSIS 08/24/20 19:45 09/05/20 15:31 Sertraline HCl (Zoloft) 25 mg DAILY PO 08/26/20 09:00 08/28/20 21:00 DC 08/28/20 08:37 Sertraline HCl (Zoloft) 50 mg DAILY PO 08/29/20 09:00 09/06/20 18:40 DC 09/04/20 08:58 Tamsulosin HCl (Flomax) 0.4 mg QHS PO 08/28/20 21:00 09/15/20 20:18 Mupirocin (Bactroban) 1 césar PRN BID PRN TP RASH 09/03/20 12:45 Diphenhydramine HCl (Benadryl) 50 mg 1X ONCE PO 09/04/20 21:00 09/04/20 21:01 DC 09/04/20 21:21 I have reviewed the current psychotropics carefully including drug interactions. Risk benefit ratio favors no change other than as noted in my dictated progress note. Diagnosis: Problems: (1) Impulse control disorder, unspecified (2) Anxiety disorder, unspecified (3) Dementia, vascular, with depression (4) Dementia, vascular, with delusions (5) Dementia in Alzheimer's disease with depression (6) Dementia in Alzheimer's disease with delusions (7) Dementia of the Alzheimer's type with early onset with behavioral disturbance (8) Major neurocognitive disorder VERENA AGUSTIN MD September 16, 2020 10:08
[2020-09-16 15:47] VITALS: BP 119/69
[2020-09-16] MEDS: TAMSULOSIN 0.4 MG CAP.ER.24H. PO SCH (20:10)
[2020-09-16] MEDS: ATORVASTATIN CALCIUM 20 MG TABLET PO SCH (20:11)
--- NOTE | 2020-09-16 21:46 | PDOC ---
Exam Note: Fercho Note: Please also refer to the separate dictated note~for this date of service dictated separately.~Patient seen individually. Discussed the patient with Nursing staff reviewed the chart.~Reviewed interim history and current functioning. Reviewed vital signs,~Labs/ Radiology~and current medications noted below. Continue current treatment with the changes noted in the dictated addendum note Assessment: Vital Signs/I&O: Vital Signs Date Time Temp Pulse Resp B/P (MAP) Pulse Ox O2 Delivery O2 Flow Rate FiO2 09/16/20 15:47 98.3 78 20 119/69 (86) 97 Room Air I & O 09/15/20 09/15/20 09/16/20 15:00 23:00 07:00 Intake Total 720 ml 370 ml Balance 720 ml 370 ml Current Medications: Meds: Current Medications Medications (Trade) Dose Ordered Sig/Ashvin Route PRN Reason Start Time Stop Time Status Last Admin Dose Admin Acetaminophen (Tylenol) 650 mg PRN Q6HRS PRN PO MILD PAIN / TEMP > 100.3'F 08/24/20 18:15 09/04/20 08:58 Multi-Ingredient Ointment (Analgesic [place]) 1 césar PRN QID PRN TP MUSCLE PAIN 08/24/20 18:15 Al Hydroxide/Mg Hydroxide (Mylanta Plus Xs) 15 ml PRN AFTMEALHC PRN PO DYSPEPSIA 08/24/20 18:15 Magnesium Hydroxide (Milk Of Magnesia) 2,400 mg PRN QHS PRN PO CONSTIPATION 08/24/20 18:15 Aspirin (Aspirin Chewable) 81 mg DAILY PO 08/25/20 09:00 09/16/20 08:23 Cetirizine HCl (ZyrTEC) 10 mg DAILY08 PO 08/25/20 08:00 09/16/20 08:23 Donepezil HCl (Aricept) 23 mg QHS PO 08/24/20 21:00 08/28/20 15:38 DC 08/27/20 20:34 Fluoxetine HCl (PROzac) 20 mg DAILY PO 08/25/20 09:00 09/16/20 08:23 Lorazepam (Ativan) 1 mg PRN Q4HRS PRN PO ANXIETY / AGITATION 08/24/20 18:45 09/04/20 16:12 DC 09/04/20 01:29 Atorvastatin Calcium (Lipitor) 40 mg QHS PO 08/24/20 21:00 09/16/20 20:11 Pantoprazole Sodium (Protonix) 40 mg DAILY08 PO 08/25/20 08:00 09/16/20 08:23 Multivitamins/ Calcium (Thera-M Plus) 1 tab DAILY PO 08/25/20 09:00 09/16/20 08:23 Mupirocin (Bactroban) 1 césar BID92 TP 08/25/20 09:00 09/03/20 12:35 DC 09/01/20 14:00 Fish Oil (Fish Oil) 1,000 mg DAILY PO 08/25/20 09:00 09/16/20 08:23 Olanzapine (ZyPREXA ZYDIS) 2.5 mg PRN Q2HR PRN PO PSYCHOSIS 08/24/20 19:45 09/05/20 15:31 Sertraline HCl (Zoloft) 25 mg DAILY PO 08/26/20 09:00 08/28/20 21:00 DC 08/28/20 08:37 Sertraline HCl (Zoloft) 50 mg DAILY PO 08/29/20 09:00 09/06/20 18:40 DC 09/04/20 08:58 Tamsulosin HCl (Flomax) 0.4 mg QHS PO 08/28/20 21:00 09/16/20 20:10 Mupirocin (Bactroban) 1 césar PRN BID PRN TP RASH 09/03/20 12:45 Diphenhydramine HCl (Benadryl) 50 mg 1X ONCE PO 09/04/20 21:00 09/04/20 21:01 DC 09/04/20 21:21 I have reviewed the current psychotropics carefully including drug interactions. Risk benefit ratio favors no change other than as noted in my dictated progress note. Diagnosis: Problems: (1) Impulse control disorder, unspecified (2) Anxiety disorder, unspecified (3) Dementia, vascular, with depression (4) Dementia, vascular, with delusions (5) Dementia in Alzheimer's disease with depression (6) Dementia in Alzheimer's disease with delusions (7) Dementia of the Alzheimer's type with early onset with behavioral disturbance (8) Major neurocognitive disorder VERENA AGUSTIN MD September 16, 2020 21:46
[2020-09-17 05:56] VITALS: BP 104/69
[2020-09-17] MEDS: MULTIVITAMIN with MINERAL TABLET. PO SCH (08:42)
[2020-09-17] MEDS: OMEGA-3 FATTY ACIDS/FISH OIL 1,000 MG CAPSULE. PO SCH (08:42)
[2020-09-17] MEDS: ASPIRIN CHEWABLE 81 MG TABLET. PO SCH (08:42)
[2020-09-17] MEDS: CETIRIZINE HCL 10 MG TABLET PO SCH (08:43)
[2020-09-17] MEDS: PANTOPRAZOLE 40 MG TABLET. PO SCH (08:43)
[2020-09-17 15:43] VITALS: BP 107/67
[2020-09-17] MEDS: ATORVASTATIN CALCIUM 20 MG TABLET PO SCH (20:14)
[2020-09-17] MEDS: TAMSULOSIN 0.4 MG CAP.ER.24H. PO SCH (20:14)
--- NOTE | 2020-09-17 22:11 | PDOC ---
Exam Note: Fercho Note: Please also refer to the separate dictated note~for this date of service dictated separately.~Patient seen individually. Discussed the patient with Nursing staff reviewed the chart.~Reviewed interim history and current functioning. Reviewed vital signs,~Labs/ Radiology~and current medications noted below. Continue current treatment with the changes noted in the dictated addendum note Assessment: Vital Signs/I&O: Vital Signs Date Time Temp Pulse Resp B/P (MAP) Pulse Ox O2 Delivery O2 Flow Rate FiO2 09/17/20 15:43 98.1 79 18 107/67 (80) 97 09/17/20 05:56 Room Air I & O 09/16/20 09/16/20 09/17/20 15:00 23:00 07:00 Intake Total 480 ml 240 ml Balance 480 ml 240 ml Current Medications: Meds: Current Medications Medications (Trade) Dose Ordered Sig/Ashvin Route PRN Reason Start Time Stop Time Status Last Admin Dose Admin Acetaminophen (Tylenol) 650 mg PRN Q6HRS PRN PO MILD PAIN / TEMP > 100.3'F 08/24/20 18:15 09/04/20 08:58 Multi-Ingredient Ointment (Analgesic [place]) 1 césar PRN QID PRN TP MUSCLE PAIN 08/24/20 18:15 Al Hydroxide/Mg Hydroxide (Mylanta Plus Xs) 15 ml PRN AFTMEALHC PRN PO DYSPEPSIA 08/24/20 18:15 Magnesium Hydroxide (Milk Of Magnesia) 2,400 mg PRN QHS PRN PO CONSTIPATION 08/24/20 18:15 Aspirin (Aspirin Chewable) 81 mg DAILY PO 08/25/20 09:00 09/17/20 08:42 Cetirizine HCl (ZyrTEC) 10 mg DAILY08 PO 08/25/20 08:00 09/17/20 08:43 Donepezil HCl (Aricept) 23 mg QHS PO 08/24/20 21:00 08/28/20 15:38 DC 08/27/20 20:34 Fluoxetine HCl (PROzac) 20 mg DAILY PO 08/25/20 09:00 09/17/20 08:42 Lorazepam (Ativan) 1 mg PRN Q4HRS PRN PO ANXIETY / AGITATION 08/24/20 18:45 09/04/20 16:12 DC 09/04/20 01:29 Atorvastatin Calcium (Lipitor) 40 mg QHS PO 08/24/20 21:00 09/17/20 20:14 Pantoprazole Sodium (Protonix) 40 mg DAILY08 PO 08/25/20 08:00 09/17/20 08:43 Multivitamins/ Calcium (Thera-M Plus) 1 tab DAILY PO 08/25/20 09:00 09/17/20 08:42 Mupirocin (Bactroban) 1 césar BID92 TP 08/25/20 09:00 09/03/20 12:35 DC 09/01/20 14:00 Fish Oil (Fish Oil) 1,000 mg DAILY PO 08/25/20 09:00 09/17/20 08:42 Olanzapine (ZyPREXA ZYDIS) 2.5 mg PRN Q2HR PRN PO PSYCHOSIS 08/24/20 19:45 09/05/20 15:31 Sertraline HCl (Zoloft) 25 mg DAILY PO 08/26/20 09:00 08/28/20 21:00 DC 08/28/20 08:37 Sertraline HCl (Zoloft) 50 mg DAILY PO 08/29/20 09:00 09/06/20 18:40 DC 09/04/20 08:58 Tamsulosin HCl (Flomax) 0.4 mg QHS PO 08/28/20 21:00 09/17/20 20:14 Mupirocin (Bactroban) 1 césar PRN BID PRN TP RASH 09/03/20 12:45 Diphenhydramine HCl (Benadryl) 50 mg 1X ONCE PO 09/04/20 21:00 09/04/20 21:01 DC 09/04/20 21:21 I have reviewed the current psychotropics carefully including drug interactions. Risk benefit ratio favors no change other than as noted in my dictated progress note. Diagnosis: Problems: (1) Impulse control disorder, unspecified (2) Anxiety disorder, unspecified (3) Dementia, vascular, with depression (4) Dementia, vascular, with delusions (5) Dementia in Alzheimer's disease with depression (6) Dementia in Alzheimer's disease with delusions (7) Dementia of the Alzheimer's type with early onset with behavioral disturbance (8) Major neurocognitive disorder VERENA AGUSTIN MD September 17, 2020 22:11
[2020-09-18 05:28] VITALS: BP 106/69
[2020-09-18] MEDS: MULTIVITAMIN with MINERAL TABLET. PO SCH (08:00)
[2020-09-18] MEDS: OMEGA-3 FATTY ACIDS/FISH OIL 1,000 MG CAPSULE. PO SCH (08:00)
[2020-09-18] MEDS: ASPIRIN CHEWABLE 81 MG TABLET. PO SCH (08:00)
[2020-09-18] MEDS: CETIRIZINE HCL 10 MG TABLET PO SCH (08:00)
[2020-09-18] MEDS: PANTOPRAZOLE 40 MG TABLET. PO SCH (08:00)
--- NOTE | 2020-09-18 08:48 | PDOC ---
Exam Note: Fercho Note: This note is a late entry for 09/16/2020 covers elements not covered in my initial note. Subjective: The patient was seen individually in the evening of 09/16/2020 with Tala ABREU, discussed and reviewed the chart. He slept 4-3/4 hours previous night. The patient is alert and oriented to himself, compliant with medications. He became extremely emotional, tearful, crying when a country song by Ander Gonzáles take me home was played in the activity therapy group. He seems to have his past memory and experiences causing the emotionality but he was quite appropriate as I met with him. Review of Systems: No CV, , pulmonary, ENT system symptoms on review. Mental Status Exam: The patient is oriented to himself. Insight and judgment, recent and remote memory, attention and concentration fund of knowledge is poor consistent with his diagnoses. Laboratory Data: Reviewed. Impression: Major neurocognitive disorder Alzheimer vascular with delusion, depression, behavioral disturbance. Anxiety disorder unspecified. Impulse control disorder unspecified. Plan: Continue current psychotropics from initial note. Assessment: Vital Signs/I&O: Vital Signs Date Time Temp Pulse Resp B/P (MAP) Pulse Ox O2 Delivery O2 Flow Rate FiO2 09/18/20 05:28 97.2 71 18 106/69 (81) 96 09/17/20 05:56 Room Air I & O 09/17/20 09/17/20 09/18/20 14:59 22:59 06:59 Intake Total 800 ml 600 ml Balance 800 ml 600 ml Current Medications: Meds: Current Medications Medications (Trade) Dose Ordered Sig/Ashvin Route PRN Reason Start Time Stop Time Status Last Admin Dose Admin Acetaminophen (Tylenol) 650 mg PRN Q6HRS PRN PO MILD PAIN / TEMP > 100.3'F 08/24/20 18:15 09/04/20 08:58 Multi-Ingredient Ointment (Analgesic [place]) 1 césar PRN QID PRN TP MUSCLE PAIN 08/24/20 18:15 Al Hydroxide/Mg Hydroxide (Mylanta Plus Xs) 15 ml PRN AFTMEALHC PRN PO DYSPEPSIA 08/24/20 18:15 Magnesium Hydroxide (Milk Of Magnesia) 2,400 mg PRN QHS PRN PO CONSTIPATION 08/24/20 18:15 Aspirin (Aspirin Chewable) 81 mg DAILY PO 08/25/20 09:00 09/18/20 08:00 Cetirizine HCl (ZyrTEC) 10 mg DAILY08 PO 08/25/20 08:00 09/18/20 08:00 Donepezil HCl (Aricept) 23 mg QHS PO 08/24/20 21:00 08/28/20 15:38 DC 08/27/20 20:34 Fluoxetine HCl (PROzac) 20 mg DAILY PO 08/25/20 09:00 09/18/20 08:00 Lorazepam (Ativan) 1 mg PRN Q4HRS PRN PO ANXIETY / AGITATION 08/24/20 18:45 09/04/20 16:12 DC 09/04/20 01:29 Atorvastatin Calcium (Lipitor) 40 mg QHS PO 08/24/20 21:00 09/17/20 20:14 Pantoprazole Sodium (Protonix) 40 mg DAILY08 PO 08/25/20 08:00 09/18/20 08:00 Multivitamins/ Calcium (Thera-M Plus) 1 tab DAILY PO 08/25/20 09:00 09/18/20 08:00 Mupirocin (Bactroban) 1 césar BID92 TP 08/25/20 09:00 09/03/20 12:35 DC 09/01/20 14:00 Fish Oil (Fish Oil) 1,000 mg DAILY PO 08/25/20 09:00 09/18/20 08:00 Olanzapine (ZyPREXA ZYDIS) 2.5 mg PRN Q2HR PRN PO PSYCHOSIS 08/24/20 19:45 09/05/20 15:31 Sertraline HCl (Zoloft) 25 mg DAILY PO 08/26/20 09:00 08/28/20 21:00 DC 08/28/20 08:37 Sertraline HCl (Zoloft) 50 mg DAILY PO 08/29/20 09:00 09/06/20 18:40 DC 09/04/20 08:58 Tamsulosin HCl (Flomax) 0.4 mg QHS PO 08/28/20 21:00 09/17/20 20:14 Mupirocin (Bactroban) 1 césar PRN BID PRN TP RASH 09/03/20 12:45 Diphenhydramine HCl (Benadryl) 50 mg 1X ONCE PO 09/04/20 21:00 09/04/20 21:01 DC 09/04/20 21:21 I have reviewed the current psychotropics carefully including drug interactions. Risk benefit ratio favors no change other than as noted in my dictated progress note. Diagnosis: Problems: (1) Impulse control disorder, unspecified (2) Anxiety disorder, unspecified (3) Dementia, vascular, with depression (4) Dementia, vascular, with delusions (5) Dementia in Alzheimer's disease with depression (6) Dementia in Alzheimer's disease with delusions (7) Dementia of the Alzheimer's type with early onset with behavioral disturbance (8) Major neurocognitive disorder VERENA AGUSTIN MD September 18, 2020 08:48
--- NOTE | 2020-09-18 09:10 | PDOC ---
Exam Note: Fercho Note: This note is a late entry for 09/17/2020 covers elements not covered in my initial note. Subjective: The patient was seen individually in the evening of 09/17/2020 with Nichole ABREU, discussed and reviewed the chart. He slept 5-1/2 hours previous night. The patient is confused, wandering, otherwise smiling as I met with him in his room. Review of Systems: No CV, , pulmonary, ENT system symptoms on review. Mental Status Exam: The patient is oriented to himself. Insight and judgment, recent and remote memory, attention and concentration fund of knowledge is poor consistent with his diagnoses. Laboratory Data: Reviewed. Impression: Major neurocognitive disorder Alzheimer vascular with delusion, depression, behavioral disturbance. Anxiety disorder unspecified. Impulse control disorder unspecified. Plan: Continue current psychotropics from initial note. Assessment: Vital Signs/I&O: Vital Signs Date Time Temp Pulse Resp B/P (MAP) Pulse Ox O2 Delivery O2 Flow Rate FiO2 09/18/20 05:28 97.2 71 18 106/69 (81) 96 09/17/20 05:56 Room Air I & O 09/17/20 09/17/20 09/18/20 15:00 23:00 07:00 Intake Total 800 ml 600 ml Balance 800 ml 600 ml Current Medications: Meds: Current Medications Medications (Trade) Dose Ordered Sig/Ashvin Route PRN Reason Start Time Stop Time Status Last Admin Dose Admin Acetaminophen (Tylenol) 650 mg PRN Q6HRS PRN PO MILD PAIN / TEMP > 100.3'F 08/24/20 18:15 09/04/20 08:58 Multi-Ingredient Ointment (Analgesic [place]) 1 césar PRN QID PRN TP MUSCLE PAIN 08/24/20 18:15 Al Hydroxide/Mg Hydroxide (Mylanta Plus Xs) 15 ml PRN AFTMEALHC PRN PO DYSPEPSIA 08/24/20 18:15 Magnesium Hydroxide (Milk Of Magnesia) 2,400 mg PRN QHS PRN PO CONSTIPATION 08/24/20 18:15 Aspirin (Aspirin Chewable) 81 mg DAILY PO 08/25/20 09:00 09/18/20 08:00 Cetirizine HCl (ZyrTEC) 10 mg DAILY08 PO 08/25/20 08:00 09/18/20 08:00 Donepezil HCl (Aricept) 23 mg QHS PO 08/24/20 21:00 08/28/20 15:38 DC 08/27/20 20:34 Fluoxetine HCl (PROzac) 20 mg DAILY PO 08/25/20 09:00 09/18/20 08:00 Lorazepam (Ativan) 1 mg PRN Q4HRS PRN PO ANXIETY / AGITATION 08/24/20 18:45 09/04/20 16:12 DC 09/04/20 01:29 Atorvastatin Calcium (Lipitor) 40 mg QHS PO 08/24/20 21:00 09/17/20 20:14 Pantoprazole Sodium (Protonix) 40 mg DAILY08 PO 08/25/20 08:00 09/18/20 08:00 Multivitamins/ Calcium (Thera-M Plus) 1 tab DAILY PO 08/25/20 09:00 09/18/20 08:00 Mupirocin (Bactroban) 1 césar BID92 TP 08/25/20 09:00 09/03/20 12:35 DC 09/01/20 14:00 Fish Oil (Fish Oil) 1,000 mg DAILY PO 08/25/20 09:00 09/18/20 08:00 Olanzapine (ZyPREXA ZYDIS) 2.5 mg PRN Q2HR PRN PO PSYCHOSIS 08/24/20 19:45 09/05/20 15:31 Sertraline HCl (Zoloft) 25 mg DAILY PO 08/26/20 09:00 08/28/20 21:00 DC 08/28/20 08:37 Sertraline HCl (Zoloft) 50 mg DAILY PO 08/29/20 09:00 09/06/20 18:40 DC 09/04/20 08:58 Tamsulosin HCl (Flomax) 0.4 mg QHS PO 08/28/20 21:00 09/17/20 20:14 Mupirocin (Bactroban) 1 césar PRN BID PRN TP RASH 09/03/20 12:45 Diphenhydramine HCl (Benadryl) 50 mg 1X ONCE PO 09/04/20 21:00 09/04/20 21:01 DC 09/04/20 21:21 I have reviewed the current psychotropics carefully including drug interactions. Risk benefit ratio favors no change other than as noted in my dictated progress note. Diagnosis: Problems: (1) Impulse control disorder, unspecified (2) Anxiety disorder, unspecified (3) Dementia, vascular, with depression (4) Dementia, vascular, with delusions (5) Dementia in Alzheimer's disease with depression (6) Dementia in Alzheimer's disease with delusions (7) Dementia of the Alzheimer's type with early onset with behavioral disturbance (8) Major neurocognitive disorder VERENA AGUSTIN MD September 18, 2020 09:10
[2020-09-18 09:33] LABS: BASO # 0.1 x10^3/uL (0.0-0.2); BASO % 1 % (0-3); EOS # 0.2 x10^3/uL (0.0-0.7); EOS % 3 % (0-3); HEMOGLOBIN 11.8 g/dL (13.0-17.5); LYMPH # 1.1 x10^3/uL (1.0-4.8); LYMPH % 16 % (24-48); MEAN CORPUSCULAR HEMOGLOBIN 30 pg (25-35); MEAN CORPUSCULAR HGB CONC 33 g/dL (31-37); MEAN CORPUSCULAR VOLUME 92 fL (79-100); MONO # 0.6 x10^3/uL (0.0-1.1); MONO % 10 % (0-9); NEUT # 4.8 x10^3uL (1.8-7.7); NEUT % 70 % (31-73); PLATELET COUNT 280 x10^3/uL (140-400); RED BLOOD COUNT 3.94 x10^6/uL (4.30-5.70); RED CELL DISTRIBUTION WIDTH 14.2 % (11.5-14.5); WHITE BLOOD COUNT 6.8 x10^3/uL (4.0-11.0)
[2020-09-18 09:58] LABS: ALBUMIN 3.4 g/dL (3.4-5.0); CALCIUM 8.4 mg/dL (8.5-10.1); CREATININE 1.4 mg/dL (0.7-1.3); GFR 49.7; TOTAL BILIRUBIN 0.9 mg/dL (0.2-1.0); TOTAL PROTEIN 6.7 g/dL (6.4-8.2)
[2020-09-18 15:37] VITALS: BP 94/59
[2020-09-18] MEDS: TAMSULOSIN 0.4 MG CAP.ER.24H. PO SCH (20:37)
[2020-09-18] MEDS: ATORVASTATIN CALCIUM 20 MG TABLET PO SCH (20:37)
--- NOTE | 2020-09-18 22:04 | PDOC ---
Exam Note: Fercho Note: Please also refer to the separate dictated note~for this date of service dictated separately.~Patient seen individually. Discussed the patient with Nursing staff reviewed the chart.~Reviewed interim history and current functioning. Reviewed vital signs,~Labs/ Radiology~and current medications noted below. Continue current treatment with the changes noted in the dictated addendum note Assessment: Vital Signs/I&O: Vital Signs Date Time Temp Pulse Resp B/P (MAP) Pulse Ox O2 Delivery O2 Flow Rate FiO2 09/18/20 15:37 98.3 85 16 94/59 (71) 95 09/17/20 05:56 Room Air I & O 09/17/20 09/17/20 09/18/20 14:59 22:59 06:59 Intake Total 800 ml 600 ml Balance 800 ml 600 ml Labs: Laboratory Tests Test 09/18/20 09:00 White Blood Count 6.8 x10^3/uL (4.0-11.0) Red Blood Count 3.94 x10^6/uL (4.30-5.70) L Hemoglobin 11.8 g/dL (13.0-17.5) L Hematocrit 36.0 % (39.0-53.0) L Mean Corpuscular Volume 92 fL (79-100) Mean Corpuscular Hemoglobin 30 pg (25-35) Mean Corpuscular Hemoglobin Concent 33 g/dL (31-37) Red Cell Distribution Width 14.2 % (11.5-14.5) Platelet Count 280 x10^3/uL (140-400) Neutrophils (%) (Auto) 70 % (31-73) Lymphocytes (%) (Auto) 16 % (24-48) L Monocytes (%) (Auto) 10 % (0-9) H Eosinophils (%) (Auto) 3 % (0-3) Basophils (%) (Auto) 1 % (0-3) Neutrophils # (Auto) 4.8 x10^3uL (1.8-7.7) Lymphocytes # (Auto) 1.1 x10^3/uL (1.0-4.8) Monocytes # (Auto) 0.6 x10^3/uL (0.0-1.1) Eosinophils # (Auto) 0.2 x10^3/uL (0.0-0.7) Basophils # (Auto) 0.1 x10^3/uL (0.0-0.2) Sodium Level 144 mmol/L (136-145) Potassium Level 4.0 mmol/L (3.5-5.1) Chloride Level 106 mmol/L (98-107) Carbon Dioxide Level 27 mmol/L (21-32) Anion Gap 11 (6-14) Blood Urea Nitrogen 26 mg/dL (8-26) Creatinine 1.4 mg/dL (0.7-1.3) H Estimated GFR (Cockcroft-Gault) 49.7 BUN/Creatinine Ratio 19 (6-20) Glucose Level 84 mg/dL (70-99) Calcium Level 8.4 mg/dL (8.5-10.1) L Total Bilirubin 0.9 mg/dL (0.2-1.0) Aspartate Amino Transferase (AST) 21 U/L (15-37) Alanine Aminotransferase (ALT) 41 U/L (16-63) Alkaline Phosphatase 77 U/L (46-116) Total Protein 6.7 g/dL (6.4-8.2) Albumin 3.4 g/dL (3.4-5.0) Albumin/Globulin Ratio 1.0 (1.0-1.7) Current Medications: Meds: Laboratory Tests Test 09/18/20 09:00 White Blood Count 6.8 x10^3/uL Red Blood Count 3.94 x10^6/uL Hemoglobin 11.8 g/dL Hematocrit 36.0 % Mean Corpuscular Volume 92 fL Mean Corpuscular Hemoglobin 30 pg Mean Corpuscular Hemoglobin Concent 33 g/dL Red Cell Distribution Width 14.2 % Platelet Count 280 x10^3/uL Neutrophils (%) (Auto) 70 % Lymphocytes (%) (Auto) 16 % Monocytes (%) (Auto) 10 % Eosinophils (%) (Auto) 3 % Basophils (%) (Auto) 1 % Neutrophils # (Auto) 4.8 x10^3uL Lymphocytes # (Auto) 1.1 x10^3/uL Monocytes # (Auto) 0.6 x10^3/uL Eosinophils # (Auto) 0.2 x10^3/uL Basophils # (Auto) 0.1 x10^3/uL Sodium Level 144 mmol/L Potassium Level 4.0 mmol/L Chloride Level 106 mmol/L Carbon Dioxide Level 27 mmol/L Anion Gap 11 Blood Urea Nitrogen 26 mg/dL Creatinine 1.4 mg/dL Estimated GFR (Cockcroft-Gault) 49.7 BUN/Creatinine Ratio 19 Glucose Level 84 mg/dL Calcium Level 8.4 mg/dL Total Bilirubin 0.9 mg/dL Aspartate Amino Transf (AST/SGOT) 21 U/L Alanine Aminotransferase (ALT/SGPT) 41 U/L Alkaline Phosphatase 77 U/L Total Protein 6.7 g/dL Albumin 3.4 g/dL Albumin/Globulin Ratio 1.0 Current Medications Medications (Trade) Dose Ordered Sig/Ashvin Route PRN Reason Start Time Stop Time Status Last Admin Dose Admin Acetaminophen (Tylenol) 650 mg PRN Q6HRS PRN PO MILD PAIN / TEMP > 100.3'F 08/24/20 18:15 09/04/20 08:58 Multi-Ingredient Ointment (Analgesic [place]) 1 césar PRN QID PRN TP MUSCLE PAIN 08/24/20 18:15 Al Hydroxide/Mg Hydroxide (Mylanta Plus Xs) 15 ml PRN AFTMEALHC PRN PO DYSPEPSIA 08/24/20 18:15 Magnesium Hydroxide (Milk Of Magnesia) 2,400 mg PRN QHS PRN PO CONSTIPATION 08/24/20 18:15 Aspirin (Aspirin Chewable) 81 mg DAILY PO 08/25/20 09:00 09/18/20 08:00 Cetirizine HCl (ZyrTEC) 10 mg DAILY08 PO 08/25/20 08:00 09/18/20 08:00 Donepezil HCl (Aricept) 23 mg QHS PO 08/24/20 21:00 08/28/20 15:38 DC 08/27/20 20:34 Fluoxetine HCl (PROzac) 20 mg DAILY PO 08/25/20 09:00 09/18/20 08:00 Lorazepam (Ativan) 1 mg PRN Q4HRS PRN PO ANXIETY / AGITATION 08/24/20 18:45 09/04/20 16:12 DC 09/04/20 01:29 Atorvastatin Calcium (Lipitor) 40 mg QHS PO 08/24/20 21:00 09/18/20 20:37 Pantoprazole Sodium (Protonix) 40 mg DAILY08 PO 08/25/20 08:00 09/18/20 08:00 Multivitamins/ Calcium (Thera-M Plus) 1 tab DAILY PO 08/25/20 09:00 09/18/20 08:00 Mupirocin (Bactroban) 1 césar BID92 TP 08/25/20 09:00 09/03/20 12:35 DC 09/01/20 14:00 Fish Oil (Fish Oil) 1,000 mg DAILY PO 08/25/20 09:00 09/18/20 08:00 Olanzapine (ZyPREXA ZYDIS) 2.5 mg PRN Q2HR PRN PO PSYCHOSIS 08/24/20 19:45 09/05/20 15:31 Sertraline HCl (Zoloft) 25 mg DAILY PO 08/26/20 09:00 08/28/20 21:00 DC 08/28/20 08:37 Sertraline HCl (Zoloft) 50 mg DAILY PO 08/29/20 09:00 09/06/20 18:40 DC 09/04/20 08:58 Tamsulosin HCl (Flomax) 0.4 mg QHS PO 08/28/20 21:00 09/18/20 20:37 Mupirocin (Bactroban) 1 césar PRN BID PRN TP RASH 09/03/20 12:45 Diphenhydramine HCl (Benadryl) 50 mg 1X ONCE PO 09/04/20 21:00 09/04/20 21:01 DC 09/04/20 21:21 I have reviewed the current psychotropics carefully including drug interactions. Risk benefit ratio favors no change other than as noted in my dictated progress note. Diagnosis: Problems: (1) Impulse control disorder, unspecified (2) Anxiety disorder, unspecified (3) Dementia, vascular, with depression (4) Dementia, vascular, with delusions (5) Dementia in Alzheimer's disease with depression (6) Dementia in Alzheimer's disease with delusions (7) Dementia of the Alzheimer's type with early onset with behavioral disturban ce (8) Major neurocognitive disorder VERENA AGUSTIN MD September 18, 2020 22:04
[2020-09-19 06:15] VITALS: BP 115/77
--- NOTE | 2020-09-19 06:51 | PDOC ---
Exam Note: Fercho Note: This note is a late entry for 09/18/2020 covers elements not covered in my initial note. Subjective: The patient was seen individually in the evening of 09/18/2020 with Tala ABREU, discussed and reviewed the chart. He slept 5-1/2 hours previous night. The patient is compliant with medications, confused, calm, pleasant and smiling as I met with him, somewhat tired. He has not been aggressive. Review of Systems: No CV, , pulmonary, ENT system symptoms on review. Mental Status Exam: The patient is oriented to himself. Insight and judgment, recent and remote memory, attention and concentration fund of knowledge is poor consistent with his diagnoses. Laboratory Data: Reviewed. Impression: Major neurocognitive disorder Alzheimer vascular with delusion, depression, behavioral disturbance. Anxiety disorder unspecified. Impulse control disorder unspecified. Plan: Continue current psychotropics from initial note. Assessment: Vital Signs/I&O: Vital Signs Date Time Temp Pulse Resp B/P (MAP) Pulse Ox O2 Delivery O2 Flow Rate FiO2 09/19/20 06:15 97.4 76 16 115/77 (90) 95 09/17/20 05:56 Room Air I & O 09/18/20 09/18/20 09/19/20 14:59 22:59 06:59 Intake Total 720 ml 480 ml Balance 720 ml 480 ml Labs: Laboratory Tests Test 09/18/20 09:00 White Blood Count 6.8 x10^3/uL (4.0-11.0) Red Blood Count 3.94 x10^6/uL (4.30-5.70) L Hemoglobin 11.8 g/dL (13.0-17.5) L Hematocrit 36.0 % (39.0-53.0) L Mean Corpuscular Volume 92 fL (79-100) Mean Corpuscular Hemoglobin 30 pg (25-35) Mean Corpuscular Hemoglobin Concent 33 g/dL (31-37) Red Cell Distribution Width 14.2 % (11.5-14.5) Platelet Count 280 x10^3/uL (140-400) Neutrophils (%) (Auto) 70 % (31-73) Lymphocytes (%) (Auto) 16 % (24-48) L Monocytes (%) (Auto) 10 % (0-9) H Eosinophils (%) (Auto) 3 % (0-3) Basophils (%) (Auto) 1 % (0-3) Neutrophils # (Auto) 4.8 x10^3uL (1.8-7.7) Lymphocytes # (Auto) 1.1 x10^3/uL (1.0-4.8) Monocytes # (Auto) 0.6 x10^3/uL (0.0-1.1) Eosinophils # (Auto) 0.2 x10^3/uL (0.0-0.7) Basophils # (Auto) 0.1 x10^3/uL (0.0-0.2) Sodium Level 144 mmol/L (136-145) Potassium Level 4.0 mmol/L (3.5-5.1) Chloride Level 106 mmol/L (98-107) Carbon Dioxide Level 27 mmol/L (21-32) Anion Gap 11 (6-14) Blood Urea Nitrogen 26 mg/dL (8-26) Creatinine 1.4 mg/dL (0.7-1.3) H Estimated GFR (Cockcroft-Gault) 49.7 BUN/Creatinine Ratio 19 (6-20) Glucose Level 84 mg/dL (70-99) Calcium Level 8.4 mg/dL (8.5-10.1) L Total Bilirubin 0.9 mg/dL (0.2-1.0) Aspartate Amino Transferase (AST) 21 U/L (15-37) Alanine Aminotransferase (ALT) 41 U/L (16-63) Alkaline Phosphatase 77 U/L (46-116) Total Protein 6.7 g/dL (6.4-8.2) Albumin 3.4 g/dL (3.4-5.0) Albumin/Globulin Ratio 1.0 (1.0-1.7) Current Medications: Meds: Laboratory Tests Test 09/18/20 09:00 White Blood Count 6.8 x10^3/uL Red Blood Count 3.94 x10^6/uL Hemoglobin 11.8 g/dL Hematocrit 36.0 % Mean Corpuscular Volume 92 fL Mean Corpuscular Hemoglobin 30 pg Mean Corpuscular Hemoglobin Concent 33 g/dL Red Cell Distribution Width 14.2 % Platelet Count 280 x10^3/uL Neutrophils (%) (Auto) 70 % Lymphocytes (%) (Auto) 16 % Monocytes (%) (Auto) 10 % Eosinophils (%) (Auto) 3 % Basophils (%) (Auto) 1 % Neutrophils # (Auto) 4.8 x10^3uL Lymphocytes # (Auto) 1.1 x10^3/uL Monocytes # (Auto) 0.6 x10^3/uL Eosinophils # (Auto) 0.2 x10^3/uL Basophils # (Auto) 0.1 x10^3/uL Sodium Level 144 mmol/L Potassium Level 4.0 mmol/L Chloride Level 106 mmol/L Carbon Dioxide Level 27 mmol/L Anion Gap 11 Blood Urea Nitrogen 26 mg/dL Creatinine 1.4 mg/dL Estimated GFR (Cockcroft-Gault) 49.7 BUN/Creatinine Ratio 19 Glucose Level 84 mg/dL Calcium Level 8.4 mg/dL Total Bilirubin 0.9 mg/dL Aspartate Amino Transf (AST/SGOT) 21 U/L Alanine Aminotransferase (ALT/SGPT) 41 U/L Alkaline Phosphatase 77 U/L Total Protein 6.7 g/dL Albumin 3.4 g/dL Albumin/Globulin Ratio 1.0 Current Medications Medications (Trade) Dose Ordered Sig/Ashvin Route PRN Reason Start Time Stop Time Status Last Admin Dose Admin Acetaminophen (Tylenol) 650 mg PRN Q6HRS PRN PO MILD PAIN / TEMP > 100.3'F 08/24/20 18:15 09/04/20 08:58 Multi-Ingredient Ointment (Analgesic [place]) 1 césar PRN QID PRN TP MUSCLE PAIN 08/24/20 18:15 Al Hydroxide/Mg Hydroxide (Mylanta Plus Xs) 15 ml PRN AFTMEALHC PRN PO DYSPEPSIA 08/24/20 18:15 Magnesium Hydroxide (Milk Of Magnesia) 2,400 mg PRN QHS PRN PO CONSTIPATION 08/24/20 18:15 Aspirin (Aspirin Chewable) 81 mg DAILY PO 08/25/20 09:00 09/18/20 08:00 Cetirizine HCl (ZyrTEC) 10 mg DAILY08 PO 08/25/20 08:00 09/18/20 08:00 Donepezil HCl (Aricept) 23 mg QHS PO 08/24/20 21:00 08/28/20 15:38 DC 08/27/20 20:34 Fluoxetine HCl (PROzac) 20 mg DAILY PO 08/25/20 09:00 09/18/20 08:00 Lorazepam (Ativan) 1 mg PRN Q4HRS PRN PO ANXIETY / AGITATION 08/24/20 18:45 09/04/20 16:12 DC 09/04/20 01:29 Atorvastatin Calcium (Lipitor) 40 mg QHS PO 08/24/20 21:00 09/18/20 20:37 Pantoprazole Sodium (Protonix) 40 mg DAILY08 PO 08/25/20 08:00 09/18/20 08:00 Multivitamins/ Calcium (Thera-M Plus) 1 tab DAILY PO 08/25/20 09:00 09/18/20 08:00 Mupirocin (Bactroban) 1 césar BID92 TP 08/25/20 09:00 09/03/20 12:35 DC 09/01/20 14:00 Fish Oil (Fish Oil) 1,000 mg DAILY PO 08/25/20 09:00 09/18/20 08:00 Olanzapine (ZyPREXA ZYDIS) 2.5 mg PRN Q2HR PRN PO PSYCHOSIS 08/24/20 19:45 09/05/20 15:31 Sertraline HCl (Zoloft) 25 mg DAILY PO 08/26/20 09:00 08/28/20 21:00 DC 08/28/20 08:37 Sertraline HCl (Zoloft) 50 mg DAILY PO 08/29/20 09:00 09/06/20 18:40 DC 09/04/20 08:58 Tamsulosin HCl (Flomax) 0.4 mg QHS PO 08/28/20 21:00 09/18/20 20:37 Mupirocin (Bactroban) 1 césar PRN BID PRN TP RASH 09/03/20 12:45 Diphenhydramine HCl (Benadryl) 50 mg 1X ONCE PO 09/04/20 21:00 09/04/20 21:01 DC 09/04/20 21:21 I have reviewed the current psychotropics carefully including drug interactions. Risk benefit ratio favors no change other than as noted in my dictated progress note. Diagnosis: Problems: (1) Impulse control disorder, unspecified (2) Anxiety disorder, unspecified (3) Dementia, vascular, with depression (4) Dementia, vascular, with delusions (5) Dementia in Alzheimer's disease with depression (6) Dementia in Alzheimer's disease with delusions (7) Dementia of the Alzheimer's type with early onset with behavioral disturbance (8) Major neurocognitive disorder VERENA AGUSTIN MD September 19, 2020 06:51
[2020-09-19] MEDS: ASPIRIN CHEWABLE 81 MG TABLET. PO SCH (08:28)
[2020-09-19] MEDS: CETIRIZINE HCL 10 MG TABLET PO SCH (08:28)
[2020-09-19] MEDS: MULTIVITAMIN with MINERAL TABLET. PO SCH (08:28)
[2020-09-19] MEDS: PANTOPRAZOLE 40 MG TABLET. PO SCH (08:28)
[2020-09-19] MEDS: OMEGA-3 FATTY ACIDS/FISH OIL 1,000 MG CAPSULE. PO SCH (08:48)
[2020-09-19 15:53] VITALS: BP 118/74
[2020-09-19] MEDS: TAMSULOSIN 0.4 MG CAP.ER.24H. PO SCH (20:13)
[2020-09-19] MEDS: ATORVASTATIN CALCIUM 20 MG TABLET PO SCH (20:13)
--- NOTE | 2020-09-19 22:09 | PDOC ---
Exam Note: Fercho Note: Please also refer to the separate dictated note~for this date of service dictated separately.~Patient seen individually. Discussed the patient with Nursing staff reviewed the chart.~Reviewed interim history and current functioning. Reviewed vital signs,~Labs/ Radiology~and current medications noted below. Continue current treatment with the changes noted in the dictated addendum note Assessment: Vital Signs/I&O: Vital Signs Date Time Temp Pulse Resp B/P (MAP) Pulse Ox O2 Delivery O2 Flow Rate FiO2 09/19/20 15:53 97.4 82 20 118/74 (89) 97 09/17/20 05:56 Room Air I & O 09/18/20 09/18/20 09/19/20 15:00 23:00 07:00 Intake Total 720 ml 480 ml Balance 720 ml 480 ml Current Medications: Meds: Current Medications Medications (Trade) Dose Ordered Sig/Ashvin Route PRN Reason Start Time Stop Time Status Last Admin Dose Admin Acetaminophen (Tylenol) 650 mg PRN Q6HRS PRN PO MILD PAIN / TEMP > 100.3'F 08/24/20 18:15 09/04/20 08:58 Multi-Ingredient Ointment (Analgesic [place]) 1 césar PRN QID PRN TP MUSCLE PAIN 08/24/20 18:15 Al Hydroxide/Mg Hydroxide (Mylanta Plus Xs) 15 ml PRN AFTMEALHC PRN PO DYSPEPSIA 08/24/20 18:15 Magnesium Hydroxide (Milk Of Magnesia) 2,400 mg PRN QHS PRN PO CONSTIPATION 08/24/20 18:15 Aspirin (Aspirin Chewable) 81 mg DAILY PO 08/25/20 09:00 09/19/20 08:28 Cetirizine HCl (ZyrTEC) 10 mg DAILY08 PO 08/25/20 08:00 09/19/20 08:28 Donepezil HCl (Aricept) 23 mg QHS PO 08/24/20 21:00 08/28/20 15:38 DC 08/27/20 20:34 Fluoxetine HCl (PROzac) 20 mg DAILY PO 08/25/20 09:00 09/19/20 08:29 Lorazepam (Ativan) 1 mg PRN Q4HRS PRN PO ANXIETY / AGITATION 08/24/20 18:45 09/04/20 16:12 DC 09/04/20 01:29 Atorvastatin Calcium (Lipitor) 40 mg QHS PO 08/24/20 21:00 09/19/20 20:13 Pantoprazole Sodium (Protonix) 40 mg DAILY08 PO 08/25/20 08:00 09/19/20 08:28 Multivitamins/ Calcium (Thera-M Plus) 1 tab DAILY PO 08/25/20 09:00 09/19/20 08:28 Mupirocin (Bactroban) 1 césar BID92 TP 08/25/20 09:00 09/03/20 12:35 DC 09/01/20 14:00 Fish Oil (Fish Oil) 1,000 mg DAILY PO 08/25/20 09:00 09/19/20 08:48 Olanzapine (ZyPREXA ZYDIS) 2.5 mg PRN Q2HR PRN PO PSYCHOSIS 08/24/20 19:45 09/05/20 15:31 Sertraline HCl (Zoloft) 25 mg DAILY PO 08/26/20 09:00 08/28/20 21:00 DC 08/28/20 08:37 Sertraline HCl (Zoloft) 50 mg DAILY PO 08/29/20 09:00 09/06/20 18:40 DC 09/04/20 08:58 Tamsulosin HCl (Flomax) 0.4 mg QHS PO 08/28/20 21:00 09/19/20 20:13 Mupirocin (Bactroban) 1 césar PRN BID PRN TP RASH 09/03/20 12:45 Diphenhydramine HCl (Benadryl) 50 mg 1X ONCE PO 09/04/20 21:00 09/04/20 21:01 DC 09/04/20 21:21 I have reviewed the current psychotropics carefully including drug interactions. Risk benefit ratio favors no change other than as noted in my dictated progress note. Diagnosis: Problems: (1) Impulse control disorder, unspecified (2) Anxiety disorder, unspecified (3) Dementia, vascular, with depression (4) Dementia, vascular, with delusions (5) Dementia in Alzheimer's disease with depression (6) Dementia in Alzheimer's disease with delusions (7) Dementia of the Alzheimer's type with early onset with behavioral disturbance (8) Major neurocognitive disorder VERENA AGUSTIN MD September 19, 2020 22:09
[2020-09-20 06:08] VITALS: BP 125/68
[2020-09-20] MEDS: PANTOPRAZOLE 40 MG TABLET. PO SCH (08:38)
[2020-09-20] MEDS: ASPIRIN CHEWABLE 81 MG TABLET. PO SCH (08:38)
[2020-09-20] MEDS: MULTIVITAMIN with MINERAL TABLET. PO SCH (08:38)
[2020-09-20] MEDS: OMEGA-3 FATTY ACIDS/FISH OIL 1,000 MG CAPSULE. PO SCH (08:38)
[2020-09-20] MEDS: CETIRIZINE HCL 10 MG TABLET PO SCH (08:38)
[2020-09-20 15:50] VITALS: BP 129/78
[2020-09-20] MEDS: TAMSULOSIN 0.4 MG CAP.ER.24H. PO SCH (21:03)
[2020-09-20] MEDS: ATORVASTATIN CALCIUM 20 MG TABLET PO SCH (21:03)
--- NOTE | 2020-09-20 21:50 | PDOC ---
Exam Note: Fercho Note: Please also refer to the separate dictated note~for this date of service dictated separately.~Patient seen individually. Discussed the patient with Nursing staff reviewed the chart.~Reviewed interim history and current functioning. Reviewed vital signs,~Labs/ Radiology~and current medications noted below. Continue current treatment with the changes noted in the dictated addendum note Assessment: Vital Signs/I&O: Vital Signs Date Time Temp Pulse Resp B/P (MAP) Pulse Ox O2 Delivery O2 Flow Rate FiO2 09/20/20 15:50 97.9 84 18 129/78 (95) 96 09/17/20 05:56 Room Air I & O 09/19/20 09/19/20 09/20/20 15:00 23:00 07:00 Intake Total 480 ml 480 ml Balance 480 ml 480 ml Current Medications: Meds: Current Medications Medications (Trade) Dose Ordered Sig/Ashvin Route PRN Reason Start Time Stop Time Status Last Admin Dose Admin Acetaminophen (Tylenol) 650 mg PRN Q6HRS PRN PO MILD PAIN / TEMP > 100.3'F 08/24/20 18:15 09/04/20 08:58 Multi-Ingredient Ointment (Analgesic [place]) 1 césar PRN QID PRN TP MUSCLE PAIN 08/24/20 18:15 Al Hydroxide/Mg Hydroxide (Mylanta Plus Xs) 15 ml PRN AFTMEALHC PRN PO DYSPEPSIA 08/24/20 18:15 Magnesium Hydroxide (Milk Of Magnesia) 2,400 mg PRN QHS PRN PO CONSTIPATION 08/24/20 18:15 Aspirin (Aspirin Chewable) 81 mg DAILY PO 08/25/20 09:00 09/20/20 08:38 Cetirizine HCl (ZyrTEC) 10 mg DAILY08 PO 08/25/20 08:00 09/20/20 08:38 Donepezil HCl (Aricept) 23 mg QHS PO 08/24/20 21:00 08/28/20 15:38 DC 08/27/20 20:34 Fluoxetine HCl (PROzac) 20 mg DAILY PO 08/25/20 09:00 09/20/20 08:38 Lorazepam (Ativan) 1 mg PRN Q4HRS PRN PO ANXIETY / AGITATION 08/24/20 18:45 09/04/20 16:12 DC 09/04/20 01:29 Atorvastatin Calcium (Lipitor) 40 mg QHS PO 08/24/20 21:00 09/20/20 21:03 Pantoprazole Sodium (Protonix) 40 mg DAILY08 PO 08/25/20 08:00 09/20/20 08:38 Multivitamins/ Calcium (Thera-M Plus) 1 tab DAILY PO 08/25/20 09:00 09/20/20 08:38 Mupirocin (Bactroban) 1 césar BID92 TP 08/25/20 09:00 09/03/20 12:35 DC 09/01/20 14:00 Fish Oil (Fish Oil) 1,000 mg DAILY PO 08/25/20 09:00 09/20/20 08:38 Olanzapine (ZyPREXA ZYDIS) 2.5 mg PRN Q2HR PRN PO PSYCHOSIS 08/24/20 19:45 09/05/20 15:31 Sertraline HCl (Zoloft) 25 mg DAILY PO 08/26/20 09:00 08/28/20 21:00 DC 08/28/20 08:37 Sertraline HCl (Zoloft) 50 mg DAILY PO 08/29/20 09:00 09/06/20 18:40 DC 09/04/20 08:58 Tamsulosin HCl (Flomax) 0.4 mg QHS PO 08/28/20 21:00 09/20/20 21:03 Mupirocin (Bactroban) 1 césar PRN BID PRN TP RASH 09/03/20 12:45 Diphenhydramine HCl (Benadryl) 50 mg 1X ONCE PO 09/04/20 21:00 09/04/20 21:01 DC 09/04/20 21:21 I have reviewed the current psychotropics carefully including drug interactions. Risk benefit ratio favors no change other than as noted in my dictated progress note. Diagnosis: Problems: (1) Impulse control disorder, unspecified (2) Anxiety disorder, unspecified (3) Dementia, vascular, with depression (4) Dementia, vascular, with delusions (5) Dementia in Alzheimer's disease with depression (6) Dementia in Alzheimer's disease with delusions (7) Dementia of the Alzheimer's type with early onset with behavioral disturbance (8) Major neurocognitive disorder VERENA AGUSTIN MD Sep 20, 2020 21:50
[2020-09-21 05:51] VITALS: BP 104/59
--- NOTE | 2020-09-21 06:44 | PDOC ---
Exam Note: Fercho Note: This note is a late entry for 09/19/2020 covers elements not covered in my initial note. Subjective: The patient was seen individually in the evening of 09/19/2020 with Tala ABREU, discussed and reviewed the chart. He slept7 hours previous night. The patient is compliant with medications, confused, calm. Review of Systems: No CV, , pulmonary, ENT system symptoms on review. Mental Status Exam: The patient is oriented to himself. Insight and judgment, recent and remote memory, attention and concentration fund of knowledge is poor consistent with his diagnoses. Laboratory Data: Reviewed. Impression: Major neurocognitive disorder Alzheimer vascular with delusion, depression, behavioral disturbance. Anxiety disorder unspecified. Impulse control disorder unspecified. Plan: Continue current psychotropics from initial note. Assessment: Vital Signs/I&O: Vital Signs Date Time Temp Pulse Resp B/P (MAP) Pulse Ox O2 Delivery O2 Flow Rate FiO2 09/21/20 05:51 97.4 75 18 104/59 (74) 100 Room Air I & O 09/20/20 09/20/20 09/21/20 15:00 23:00 07:00 Intake Total 600 ml 360 ml 120 ml Balance 600 ml 360 ml 120 ml Current Medications: Meds: Current Medications Medications (Trade) Dose Ordered Sig/Ashvin Route PRN Reason Start Time Stop Time Status Last Admin Dose Admin Acetaminophen (Tylenol) 650 mg PRN Q6HRS PRN PO MILD PAIN / TEMP > 100.3'F 08/24/20 18:15 09/04/20 08:58 Multi-Ingredient Ointment (Analgesic [place]) 1 césar PRN QID PRN TP MUSCLE PAIN 08/24/20 18:15 Al Hydroxide/Mg Hydroxide (Mylanta Plus Xs) 15 ml PRN AFTMEALHC PRN PO DYSPEPSIA 08/24/20 18:15 Magnesium Hydroxide (Milk Of Magnesia) 2,400 mg PRN QHS PRN PO CONSTIPATION 08/24/20 18:15 Aspirin (Aspirin Chewable) 81 mg DAILY PO 08/25/20 09:00 09/20/20 08:38 Cetirizine HCl (ZyrTEC) 10 mg DAILY08 PO 08/25/20 08:00 09/20/20 08:38 Donepezil HCl (Aricept) 23 mg QHS PO 08/24/20 21:00 08/28/20 15:38 DC 08/27/20 20:34 Fluoxetine HCl (PROzac) 20 mg DAILY PO 08/25/20 09:00 09/20/20 08:38 Lorazepam (Ativan) 1 mg PRN Q4HRS PRN PO ANXIETY / AGITATION 08/24/20 18:45 09/04/20 16:12 DC 09/04/20 01:29 Atorvastatin Calcium (Lipitor) 40 mg QHS PO 08/24/20 21:00 09/20/20 21:03 Pantoprazole Sodium (Protonix) 40 mg DAILY08 PO 08/25/20 08:00 09/20/20 08:38 Multivitamins/ Calcium (Thera-M Plus) 1 tab DAILY PO 08/25/20 09:00 09/20/20 08:38 Mupirocin (Bactroban) 1 césar BID92 TP 08/25/20 09:00 09/03/20 12:35 DC 09/01/20 14:00 Fish Oil (Fish Oil) 1,000 mg DAILY PO 08/25/20 09:00 09/20/20 08:38 Olanzapine (ZyPREXA ZYDIS) 2.5 mg PRN Q2HR PRN PO PSYCHOSIS 08/24/20 19:45 09/05/20 15:31 Sertraline HCl (Zoloft) 25 mg DAILY PO 08/26/20 09:00 08/28/20 21:00 DC 08/28/20 08:37 Sertraline HCl (Zoloft) 50 mg DAILY PO 08/29/20 09:00 09/06/20 18:40 DC 09/04/20 08:58 Tamsulosin HCl (Flomax) 0.4 mg QHS PO 08/28/20 21:00 09/20/20 21:03 Mupirocin (Bactroban) 1 césar PRN BID PRN TP RASH 09/03/20 12:45 Diphenhydramine HCl (Benadryl) 50 mg 1X ONCE PO 09/04/20 21:00 09/04/20 21:01 DC 09/04/20 21:21 I have reviewed the current psychotropics carefully including drug interactions. Risk benefit ratio favors no change other than as noted in my dictated progress note. Diagnosis: Problems: (1) Impulse control disorder, unspecified (2) Anxiety disorder, unspecified (3) Dementia, vascular, with depression (4) Dementia, vascular, with delusions (5) Dementia in Alzheimer's disease with depression (6) Dementia in Alzheimer's disease with delusions (7) Dementia of the Alzheimer's type with early onset with behavioral disturbance (8) Major neurocognitive disorder VERENA AGUSTIN MD Sep 21, 2020 06:44
--- NOTE | 2020-09-21 07:18 | PDOC ---
Exam Note: Fercho Note: This note is a late entry for 09/20/2020 covers elements not covered in my initial note. Subjective: The patient was seen individually in the evening of 09/20/2020 with Mera ABREU, discussed and reviewed the chart. He slept 7 hours previous night. The patient visited with his . He remained pleasant, cooperative, extremely confused, wandering the hallways. Review of Systems: No CV, , pulmonary, ENT system symptoms on review. Mental Status Exam: The patient is oriented to himself. Insight and judgment, recent and remote memory, attention and concentration fund of knowledge is poor consistent with his diagnoses. Laboratory Data: Reviewed. Impression: Major neurocognitive disorder Alzheimer vascular with delusion, depression, behavioral disturbance. Anxiety disorder unspecified. Impulse control disorder unspecified. Plan: Continue current psychotropics from initial note. Assessment: Vital Signs/I&O: Vital Signs Date Time Temp Pulse Resp B/P (MAP) Pulse Ox O2 Delivery O2 Flow Rate FiO2 09/21/20 05:51 97.4 75 18 104/59 (74) 100 Room Air I & O 09/20/20 09/20/20 09/21/20 15:00 23:00 07:00 Intake Total 600 ml 360 ml 120 ml Balance 600 ml 360 ml 120 ml Current Medications: Meds: Current Medications Medications (Trade) Dose Ordered Sig/Ashvin Route PRN Reason Start Time Stop Time Status Last Admin Dose Admin Acetaminophen (Tylenol) 650 mg PRN Q6HRS PRN PO MILD PAIN / TEMP > 100.3'F 08/24/20 18:15 09/04/20 08:58 Multi-Ingredient Ointment (Analgesic [place]) 1 césar PRN QID PRN TP MUSCLE PAIN 08/24/20 18:15 Al Hydroxide/Mg Hydroxide (Mylanta Plus Xs) 15 ml PRN AFTMEALHC PRN PO DYSPEPSIA 08/24/20 18:15 Magnesium Hydroxide (Milk Of Magnesia) 2,400 mg PRN QHS PRN PO CONSTIPATION 08/24/20 18:15 Aspirin (Aspirin Chewable) 81 mg DAILY PO 08/25/20 09:00 09/20/20 08:38 Cetirizine HCl (ZyrTEC) 10 mg DAILY08 PO 08/25/20 08:00 09/20/20 08:38 Donepezil HCl (Aricept) 23 mg QHS PO 08/24/20 21:00 08/28/20 15:38 DC 08/27/20 20:34 Fluoxetine HCl (PROzac) 20 mg DAILY PO 08/25/20 09:00 09/20/20 08:38 Lorazepam (Ativan) 1 mg PRN Q4HRS PRN PO ANXIETY / AGITATION 08/24/20 18:45 09/04/20 16:12 DC 09/04/20 01:29 Atorvastatin Calcium (Lipitor) 40 mg QHS PO 08/24/20 21:00 09/20/20 21:03 Pantoprazole Sodium (Protonix) 40 mg DAILY08 PO 08/25/20 08:00 09/20/20 08:38 Multivitamins/ Calcium (Thera-M Plus) 1 tab DAILY PO 08/25/20 09:00 09/20/20 08:38 Mupirocin (Bactroban) 1 césar BID92 TP 08/25/20 09:00 09/03/20 12:35 DC 09/01/20 14:00 Fish Oil (Fish Oil) 1,000 mg DAILY PO 08/25/20 09:00 09/20/20 08:38 Olanzapine (ZyPREXA ZYDIS) 2.5 mg PRN Q2HR PRN PO PSYCHOSIS 08/24/20 19:45 09/05/20 15:31 Sertraline HCl (Zoloft) 25 mg DAILY PO 08/26/20 09:00 08/28/20 21:00 DC 08/28/20 08:37 Sertraline HCl (Zoloft) 50 mg DAILY PO 08/29/20 09:00 09/06/20 18:40 DC 09/04/20 08:58 Tamsulosin HCl (Flomax) 0.4 mg QHS PO 08/28/20 21:00 09/20/20 21:03 Mupirocin (Bactroban) 1 césar PRN BID PRN TP RASH 09/03/20 12:45 Diphenhydramine HCl (Benadryl) 50 mg 1X ONCE PO 09/04/20 21:00 09/04/20 21:01 DC 09/04/20 21:21 I have reviewed the current psychotropics carefully including drug interactions. Risk benefit ratio favors no change other than as noted in my dictated progress note. Diagnosis: Problems: (1) Impulse control disorder, unspecified (2) Anxiety disorder, unspecified (3) Dementia, vascular, with depression (4) Dementia, vascular, with delusions (5) Dementia in Alzheimer's disease with depression (6) Dementia in Alzheimer's disease with delusions (7) Dementia of the Alzheimer's type with early onset with behavioral disturbance (8) Major neurocognitive disorder VERENA AGUSTIN MD Sep 21, 2020 07:18
[2020-09-21] MEDS: PANTOPRAZOLE 40 MG TABLET. PO SCH (08:41)
[2020-09-21] MEDS: MULTIVITAMIN with MINERAL TABLET. PO SCH (08:41)
[2020-09-21] MEDS: OMEGA-3 FATTY ACIDS/FISH OIL 1,000 MG CAPSULE. PO SCH (08:41)
[2020-09-21] MEDS: CETIRIZINE HCL 10 MG TABLET PO SCH (08:41)
[2020-09-21] MEDS: ASPIRIN CHEWABLE 81 MG TABLET. PO SCH (08:46)
[2020-09-21 15:26] VITALS: BP 127/69
[2020-09-21] MEDS: TAMSULOSIN 0.4 MG CAP.ER.24H. PO SCH (19:44)
[2020-09-21] MEDS: ATORVASTATIN CALCIUM 20 MG TABLET PO SCH (19:44)
--- NOTE | 2020-09-21 21:59 | PDOC ---
Exam Note: Fercho Note: Please also refer to the separate dictated note~for this date of service dictated separately.~Patient seen individually. Discussed the patient with Nursing staff reviewed the chart.~Reviewed interim history and current functioning. Reviewed vital signs,~Labs/ Radiology~and current medications noted below. Continue current treatment with the changes noted in the dictated addendum note Assessment: Vital Signs/I&O: Vital Signs Date Time Temp Pulse Resp B/P (MAP) Pulse Ox O2 Delivery O2 Flow Rate FiO2 09/21/20 15:26 98.2 92 20 127/69 (88) 97 09/21/20 05:51 Room Air I & O 09/20/20 09/20/20 09/21/20 15:00 23:00 07:00 Intake Total 600 ml 360 ml 120 ml Balance 600 ml 360 ml 120 ml Current Medications: Meds: Current Medications Medications (Trade) Dose Ordered Sig/Ashvin Route PRN Reason Start Time Stop Time Status Last Admin Dose Admin Acetaminophen (Tylenol) 650 mg PRN Q6HRS PRN PO MILD PAIN / TEMP > 100.3'F 08/24/20 18:15 09/04/20 08:58 Multi-Ingredient Ointment (Analgesic [place]) 1 césar PRN QID PRN TP MUSCLE PAIN 08/24/20 18:15 Al Hydroxide/Mg Hydroxide (Mylanta Plus Xs) 15 ml PRN AFTMEALHC PRN PO DYSPEPSIA 08/24/20 18:15 Magnesium Hydroxide (Milk Of Magnesia) 2,400 mg PRN QHS PRN PO CONSTIPATION 08/24/20 18:15 Aspirin (Aspirin Chewable) 81 mg DAILY PO 08/25/20 09:00 09/21/20 08:46 Cetirizine HCl (ZyrTEC) 10 mg DAILY08 PO 08/25/20 08:00 09/21/20 08:41 Donepezil HCl (Aricept) 23 mg QHS PO 08/24/20 21:00 08/28/20 15:38 DC 08/27/20 20:34 Fluoxetine HCl (PROzac) 20 mg DAILY PO 08/25/20 09:00 09/21/20 08:41 Lorazepam (Ativan) 1 mg PRN Q4HRS PRN PO ANXIETY / AGITATION 08/24/20 18:45 09/04/20 16:12 DC 09/04/20 01:29 Atorvastatin Calcium (Lipitor) 40 mg QHS PO 08/24/20 21:00 09/21/20 19:44 Pantoprazole Sodium (Protonix) 40 mg DAILY08 PO 08/25/20 08:00 09/21/20 08:41 Multivitamins/ Calcium (Thera-M Plus) 1 tab DAILY PO 08/25/20 09:00 09/21/20 08:41 Mupirocin (Bactroban) 1 césar BID92 TP 08/25/20 09:00 09/03/20 12:35 DC 09/01/20 14:00 Fish Oil (Fish Oil) 1,000 mg DAILY PO 08/25/20 09:00 09/21/20 08:41 Olanzapine (ZyPREXA ZYDIS) 2.5 mg PRN Q2HR PRN PO PSYCHOSIS 08/24/20 19:45 09/21/20 19:44 Sertraline HCl (Zoloft) 25 mg DAILY PO 08/26/20 09:00 08/28/20 21:00 DC 08/28/20 08:37 Sertraline HCl (Zoloft) 50 mg DAILY PO 08/29/20 09:00 09/06/20 18:40 DC 09/04/20 08:58 Tamsulosin HCl (Flomax) 0.4 mg QHS PO 08/28/20 21:00 09/21/20 19:44 Mupirocin (Bactroban) 1 césar PRN BID PRN TP RASH 09/03/20 12:45 Diphenhydramine HCl (Benadryl) 50 mg 1X ONCE PO 09/04/20 21:00 09/04/20 21:01 DC 09/04/20 21:21 I have reviewed the current psychotropics carefully including drug interactions. Risk benefit ratio favors no change other than as noted in my dictated progress note. Diagnosis: Problems: (1) Impulse control disorder, unspecified (2) Anxiety disorder, unspecified (3) Dementia, vascular, with depression (4) Dementia, vascular, with delusions (5) Dementia in Alzheimer's disease with depression (6) Dementia in Alzheimer's disease with delusions (7) Dementia of the Alzheimer's type with early onset with behavioral disturbance (8) Major neurocognitive disorder VERENA AGUSTIN MD Sep 21, 2020 21:59
[2020-09-22 05:59] VITALS: BP 113/76
[2020-09-22] MEDS: ASPIRIN CHEWABLE 81 MG TABLET. PO SCH (08:22)
[2020-09-22] MEDS: OMEGA-3 FATTY ACIDS/FISH OIL 1,000 MG CAPSULE. PO SCH (08:22)
[2020-09-22] MEDS: MULTIVITAMIN with MINERAL TABLET. PO SCH (08:22)
[2020-09-22] MEDS: CETIRIZINE HCL 10 MG TABLET PO SCH (08:22)
[2020-09-22] MEDS: PANTOPRAZOLE 40 MG TABLET. PO SCH (08:22)
[2020-09-22 12:36] LABS: BASO # 0.1 x10^3/uL (0.0-0.2); BASO % 1 % (0-3); EOS # 0.3 x10^3/uL (0.0-0.7); EOS % 4 % (0-3); HEMATOCRIT 34.3 % (39.0-53.0); HEMOGLOBIN 11.4 g/dL (13.0-17.5); LYMPH # 1.1 x10^3/uL (1.0-4.8); LYMPH % 16 % (24-48); MEAN CORPUSCULAR HEMOGLOBIN 30 pg (25-35); MEAN CORPUSCULAR HGB CONC 33 g/dL (31-37); MEAN CORPUSCULAR VOLUME 91 fL (79-100); MONO # 0.8 x10^3/uL (0.0-1.1); MONO % 12 % (0-9); NEUT # 4.8 x10^3uL (1.8-7.7); NEUT % 68 % (31-73); PLATELET COUNT 287 x10^3/uL (140-400); RED BLOOD COUNT 3.76 x10^6/uL (4.30-5.70); RED CELL DISTRIBUTION WIDTH 14.4 % (11.5-14.5)
[2020-09-22 13:43] LABS: ALBUMIN 3.3 g/dL (3.4-5.0); CALCIUM 8.7 mg/dL (8.5-10.1); CREATININE 1.4 mg/dL (0.7-1.3); GFR 49.7; POTASSIUM 4.5 mmol/L (3.5-5.1); TOTAL BILIRUBIN 0.8 mg/dL (0.2-1.0); TOTAL PROTEIN 6.5 g/dL (6.4-8.2)
[2020-09-22 15:50] VITALS: BP 123/73
--- NOTE | 2020-09-22 16:24 | TX PLAN ---
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 Change Sleep, Confusion/Disoriented, Poor impulse control, Other Problem in Patient's Words: I cannot care for him at home. Additional Admission Comments: According to the intake, pt was anxious, wandering, restless, insomnia, posturing [facility] staff, struck which resulted in police response Problems Active Problems: wandering restless Inactive Problems: medication compliant Pt Strengths/Limitations Ability for [place]: Poor Cognitive Functioning/Ability: Fair Communication Skills/Ability: Fair Financial Resources: Poor Insight/Judgement: Poor Intellectual Ability: Poor Physical Health: Fair Social Skills: Fair Stability in Family: Fair Stability in School/Work: Poor Verbal Skills: Fair Discharge Criteria Discharge Criteria: No need for close observ., Adequate arrangements @DC, Improved behavior, Improved mood/thought Preliminary Discharge Plan Preliminary DC Plan: Placement Needed Special Precautions Fall Risk: Low Initial D/C Plan Pt is not able to discharge home, will need placement once stable. Identified Discharge Needs: Referral for higher level of care Currently Utilized Resources Currently Utilized Resources/P: Primary Care Physician Identified Problems/Hx/Goals Objectives/Short-Term Goals Short Term Goals: Dec. Aggression, Dec. Outbursts, Medication Stabilization, Monitor Med Effects Short Term Goals in Patient's: N/A Interventions/Frequency Staff Interventions/Frequency&: Psychiatrist to assess pt at least 3x per week for medication management. Social Work to assess pt at least 2x per week to identify barriers to care and finalize discharge planning. Nursing to assess medication effects, behavior modification, and completion of 15 minute checks daily. Encourage participation in group activities (if applicable) or 1:1 engagement based off Activity Dept goals. 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 He received a Bachelors in Sociology. Community Follow-up Primary Care Physician Referrals to higher level of care Community Provider/Family Inpu: Pt has become increasingly aggressive towards his , who is caring for pt. She is not able to care for pt at home any longer. 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 Pt is pleasantly confused, calm and mostly cooperative with staff direction and cares. Pt did display some agitation yesterday with staff direction which is not typical of pt. Pt does appear to be doing more wandering but remain compliant with medications and participation in group activities. Pt will have a repeat UA and have his CBC/CMP labs drawn. SW received a pending Medicaid case number, will send out referrals RAVINDRA in hopes to have pt placed next week. WALESKA HARRELL Sep 22, 2020 16:24
[2020-09-22] MEDS: ATORVASTATIN CALCIUM 20 MG TABLET PO SCH (19:47)
[2020-09-22] MEDS: TAMSULOSIN 0.4 MG CAP.ER.24H. PO SCH (19:47)
--- NOTE | 2020-09-22 21:51 | PDOC ---
Exam Note: Fercho Note: Please also refer to the separate dictated note~for this date of service dictated separately.~Patient seen individually. Discussed the patient with Nursing staff reviewed the chart.~Reviewed interim history and current functioning. Reviewed vital signs,~Labs/ Radiology~and current medications noted below. Continue current treatment with the changes noted in the dictated addendum note Assessment: Vital Signs/I&O: Vital Signs Date Time Temp Pulse Resp B/P (MAP) Pulse Ox O2 Delivery O2 Flow Rate FiO2 09/22/20 15:50 97.0 98 18 123/73 (90) 98 09/22/20 05:59 Room Air I & O 09/21/20 09/21/20 09/22/20 15:00 23:00 07:00 Intake Total 840 ml 840 ml Balance 840 ml 840 ml Labs: Laboratory Tests Test 09/22/20 09:40 09/22/20 11:47 SARS-CoV-2 (PCR) Negative (NEGATIVE) White Blood Count 7.0 x10^3/uL (4.0-11.0) Red Blood Count 3.76 x10^6/uL (4.30-5.70) L Hemoglobin 11.4 g/dL (13.0-17.5) L Hematocrit 34.3 % (39.0-53.0) L Mean Corpuscular Volume 91 fL (79-100) Mean Corpuscular Hemoglobin 30 pg (25-35) Mean Corpuscular Hemoglobin Concent 33 g/dL (31-37) Red Cell Distribution Width 14.4 % (11.5-14.5) Platelet Count 287 x10^3/uL (140-400) Neutrophils (%) (Auto) 68 % (31-73) Lymphocytes (%) (Auto) 16 % (24-48) L Monocytes (%) (Auto) 12 % (0-9) H Eosinophils (%) (Auto) 4 % (0-3) H Basophils (%) (Auto) 1 % (0-3) Neutrophils # (Auto) 4.8 x10^3uL (1.8-7.7) Lymphocytes # (Auto) 1.1 x10^3/uL (1.0-4.8) Monocytes # (Auto) 0.8 x10^3/uL (0.0-1.1) Eosinophils # (Auto) 0.3 x10^3/uL (0.0-0.7) Basophils # (Auto) 0.1 x10^3/uL (0.0-0.2) Sodium Level 144 mmol/L (136-145) Potassium Level 4.5 mmol/L (3.5-5.1) Chloride Level 107 mmol/L (98-107) Carbon Dioxide Level 27 mmol/L (21-32) Anion Gap 10 (6-14) Blood Urea Nitrogen 30 mg/dL (8-26) H Creatinine 1.4 mg/dL (0.7-1.3) H Estimated GFR (Cockcroft-Gault) 49.7 BUN/Creatinine Ratio 21 (6-20) H Glucose Level 110 mg/dL (70-99) H Calcium Level 8.7 mg/dL (8.5-10.1) Total Bilirubin 0.8 mg/dL (0.2-1.0) Aspartate Amino Transferase (AST) 22 U/L (15-37) Alanine Aminotransferase (ALT) 40 U/L (16-63) Alkaline Phosphatase 76 U/L (46-116) Total Protein 6.5 g/dL (6.4-8.2) Albumin 3.3 g/dL (3.4-5.0) L Albumin/Globulin Ratio 1.0 (1.0-1.7) Current Medications: Meds: Laboratory Tests Test 09/22/20 09:40 09/22/20 11:47 Coronavirus (COVID-19)(PCR) Negative White Blood Count 7.0 x10^3/uL Red Blood Count 3.76 x10^6/uL Hemoglobin 11.4 g/dL Hematocrit 34.3 % Mean Corpuscular Volume 91 fL Mean Corpuscular Hemoglobin 30 pg Mean Corpuscular Hemoglobin Concent 33 g/dL Red Cell Distribution Width 14.4 % Platelet Count 287 x10^3/uL Neutrophils (%) (Auto) 68 % Lymphocytes (%) (Auto) 16 % Monocytes (%) (Auto) 12 % Eosinophils (%) (Auto) 4 % Basophils (%) (Auto) 1 % Neutrophils # (Auto) 4.8 x10^3uL Lymphocytes # (Auto) 1.1 x10^3/uL Monocytes # (Auto) 0.8 x10^3/uL Eosinophils # (Auto) 0.3 x10^3/uL Basophils # (Auto) 0.1 x10^3/uL Sodium Level 144 mmol/L Potassium Level 4.5 mmol/L Chloride Level 107 mmol/L Carbon Dioxide Level 27 mmol/L Anion Gap 10 Blood Urea Nitrogen 30 mg/dL Creatinine 1.4 mg/dL Estimated GFR (Cockcroft-Gault) 49.7 BUN/Creatinine Ratio 21 Glucose Level 110 mg/dL Calcium Level 8.7 mg/dL Total Bilirubin 0.8 mg/dL Aspartate Amino Transf (AST/SGOT) 22 U/L Alanine Aminotransferase (ALT/SGPT) 40 U/L Alkaline Phosphatase 76 U/L Total Protein 6.5 g/dL Albumin 3.3 g/dL Albumin/Globulin Ratio 1.0 Current Medications Medications (Trade) Dose Ordered Sig/Ashvin Route PRN Reason Start Time Stop Time Status Last Admin Dose Admin Acetaminophen (Tylenol) 650 mg PRN Q6HRS PRN PO MILD PAIN / TEMP > 100.3'F 08/24/20 18:15 09/04/20 08:58 Multi-Ingredient Ointment (Analgesic [place]) 1 césar PRN QID PRN TP MUSCLE PAIN 08/24/20 18:15 Al Hydroxide/Mg Hydroxide (Mylanta Plus Xs) 15 ml PRN AFTMEALHC PRN PO DYSPEPSIA 08/24/20 18:15 Magnesium Hydroxide (Milk Of Magnesia) 2,400 mg PRN QHS PRN PO CONSTIPATION 08/24/20 18:15 Aspirin (Aspirin Chewable) 81 mg DAILY PO 08/25/20 09:00 09/22/20 08:22 Cetirizine HCl (ZyrTEC) 10 mg DAILY08 PO 08/25/20 08:00 09/22/20 08:22 Donepezil HCl (Aricept) 23 mg QHS PO 08/24/20 21:00 08/28/20 15:38 DC 08/27/20 20:34 Fluoxetine HCl (PROzac) 20 mg DAILY PO 08/25/20 09:00 09/22/20 08:22 Lorazepam (Ativan) 1 mg PRN Q4HRS PRN PO ANXIETY / AGITATION 08/24/20 18:45 09/04/20 16:12 DC 09/04/20 01:29 Atorvastatin Calcium (Lipitor) 40 mg QHS PO 08/24/20 21:00 09/22/20 19:47 Pantoprazole Sodium (Protonix) 40 mg DAILY08 PO 08/25/20 08:00 09/22/20 08:22 Multivitamins/ Calcium (Thera-M Plus) 1 tab DAILY PO 08/25/20 09:00 09/22/20 08:22 Mupirocin (Bactroban) 1 césar BID92 TP 08/25/20 09:00 09/03/20 12:35 DC 09/01/20 14:00 Fish Oil (Fish Oil) 1,000 mg DAILY PO 08/25/20 09:00 09/22/20 08:22 Olanzapine (ZyPREXA ZYDIS) 2.5 mg PRN Q2HR PRN PO PSYCHOSIS 08/24/20 19:45 09/21/20 19:44 Sertraline HCl (Zoloft) 25 mg DAILY PO 08/26/20 09:00 08/28/20 21:00 DC 08/28/20 08:37 Sertraline HCl (Zoloft) 50 mg DAILY PO 08/29/20 09:00 09/06/20 18:40 DC 09/04/20 08:58 Tamsulosin HCl (Flomax) 0.4 mg QHS PO 08/28/20 21:00 09/22/20 19:47 Mupirocin (Bactroban) 1 césar PRN BID PRN TP RASH 09/03/20 12:45 Diphenhydramine HCl (Benadryl) 50 mg 1X ONCE PO 09/04/20 21:00 09/04/20 21:01 DC 09/04/20 21:21 I have reviewed the current psychotropics carefully including drug interactions. Risk benefit ratio favors no change other than as noted in my dictated progress note. Diagnosis: Problems: (1) Impulse control disorder, unspecified (2) Anxiety disorder, unspecified (3) Dementia, vascular, with depression (4) Dementia, vascular, with delusions (5) Dementia in Alzheimer's disease with depression (6) Dementia in Alzheimer's disease with delusions (7) Dementia of the Alzheimer's type with early onset with behavioral disturbance (8) Major neurocognitive disorder VERENA AGUSTIN MD Sep 22, 2020 21:51
[2020-09-23 05:50] VITALS: BP 98/62
[2020-09-23] MEDS: CETIRIZINE HCL 10 MG TABLET PO SCH (08:27)
[2020-09-23] MEDS: MULTIVITAMIN with MINERAL TABLET. PO SCH (08:27)
[2020-09-23] MEDS: OMEGA-3 FATTY ACIDS/FISH OIL 1,000 MG CAPSULE. PO SCH (08:27)
[2020-09-23] MEDS: PANTOPRAZOLE 40 MG TABLET. PO SCH (08:27)
[2020-09-23] MEDS: ASPIRIN CHEWABLE 81 MG TABLET. PO SCH (08:27)
--- NOTE | 2020-09-23 09:15 | PDOC ---
Exam Note: Fercho Note: This note is a late entry for 09/21/2020 covers elements not covered in my initial note. Subjective: The patient was seen individually in the evening of 09/21/2020 with Mera ABREU, discussed and reviewed the chart. He slept 6-1/2 hours previous night. The patient remains confused, described by nursing staff as being happy go serene. He had one episode of irritability. Received Zyprexa 2.5 mg at 3 p.m. Rest of the time he is pleasant, oblivious of his surrounding but redirectable. Review of Systems: No CV, , pulmonary, ENT system symptoms on review. Mental Status Exam: The patient is oriented to himself. Insight and judgment, recent and remote memory, attention and concentration fund of knowledge is poor consistent with his diagnoses. Laboratory Data: Reviewed. Impression: Major neurocognitive disorder Alzheimer vascular with delusion, depression, behavioral disturbance. Anxiety disorder unspecified. Impulse control disorder unspecified. Plan: Continue current psychotropics from initial note. Assessment: Vital Signs/I&O: Vital Signs Date Time Temp Pulse Resp B/P (MAP) Pulse Ox O2 Delivery O2 Flow Rate FiO2 09/23/20 05:50 97.9 82 16 98/62 (74) 98 09/22/20 05:59 Room Air I & O 09/22/20 09/22/20 09/23/20 14:59 22:59 06:59 Intake Total 480 ml 320 ml Balance 480 ml 320 ml Labs: Laboratory Tests Test 09/22/20 09:40 09/22/20 11:47 SARS-CoV-2 (PCR) Negative (NEGATIVE) White Blood Count 7.0 x10^3/uL (4.0-11.0) Red Blood Count 3.76 x10^6/uL (4.30-5.70) L Hemoglobin 11.4 g/dL (13.0-17.5) L Hematocrit 34.3 % (39.0-53.0) L Mean Corpuscular Volume 91 fL (79-100) Mean Corpuscular Hemoglobin 30 pg (25-35) Mean Corpuscular Hemoglobin Concent 33 g/dL (31-37) Red Cell Distribution Width 14.4 % (11.5-14.5) Platelet Count 287 x10^3/uL (140-400) Neutrophils (%) (Auto) 68 % (31-73) Lymphocytes (%) (Auto) 16 % (24-48) L Monocytes (%) (Auto) 12 % (0-9) H Eosinophils (%) (Auto) 4 % (0-3) H Basophils (%) (Auto) 1 % (0-3) Neutrophils # (Auto) 4.8 x10^3uL (1.8-7.7) Lymphocytes # (Auto) 1.1 x10^3/uL (1.0-4.8) Monocytes # (Auto) 0.8 x10^3/uL (0.0-1.1) Eosinophils # (Auto) 0.3 x10^3/uL (0.0-0.7) Basophils # (Auto) 0.1 x10^3/uL (0.0-0.2) Sodium Level 144 mmol/L (136-145) Potassium Level 4.5 mmol/L (3.5-5.1) Chloride Level 107 mmol/L (98-107) Carbon Dioxide Level 27 mmol/L (21-32) Anion Gap 10 (6-14) Blood Urea Nitrogen 30 mg/dL (8-26) H Creatinine 1.4 mg/dL (0.7-1.3) H Estimated GFR (Cockcroft-Gault) 49.7 BUN/Creatinine Ratio 21 (6-20) H Glucose Level 110 mg/dL (70-99) H Calcium Level 8.7 mg/dL (8.5-10.1) Total Bilirubin 0.8 mg/dL (0.2-1.0) Aspartate Amino Transferase (AST) 22 U/L (15-37) Alanine Aminotransferase (ALT) 40 U/L (16-63) Alkaline Phosphatase 76 U/L (46-116) Total Protein 6.5 g/dL (6.4-8.2) Albumin 3.3 g/dL (3.4-5.0) L Albumin/Globulin Ratio 1.0 (1.0-1.7) Current Medications: Meds: Laboratory Tests Test 09/22/20 09:40 09/22/20 11:47 Coronavirus (COVID-19)(PCR) Negative White Blood Count 7.0 x10^3/uL Red Blood Count 3.76 x10^6/uL Hemoglobin 11.4 g/dL Hematocrit 34.3 % Mean Corpuscular Volume 91 fL Mean Corpuscular Hemoglobin 30 pg Mean Corpuscular Hemoglobin Concent 33 g/dL Red Cell Distribution Width 14.4 % Platelet Count 287 x10^3/uL Neutrophils (%) (Auto) 68 % Lymphocytes (%) (Auto) 16 % Monocytes (%) (Auto) 12 % Eosinophils (%) (Auto) 4 % Basophils (%) (Auto) 1 % Neutrophils # (Auto) 4.8 x10^3uL Lymphocytes # (Auto) 1.1 x10^3/uL Monocytes # (Auto) 0.8 x10^3/uL Eosinophils # (Auto) 0.3 x10^3/uL Basophils # (Auto) 0.1 x10^3/uL Sodium Level 144 mmol/L Potassium Level 4.5 mmol/L Chloride Level 107 mmol/L Carbon Dioxide Level 27 mmol/L Anion Gap 10 Blood Urea Nitrogen 30 mg/dL Creatinine 1.4 mg/dL Estimated GFR (Cockcroft-Gault) 49.7 BUN/Creatinine Ratio 21 Glucose Level 110 mg/dL Calcium Level 8.7 mg/dL Total Bilirubin 0.8 mg/dL Aspartate Amino Transf (AST/SGOT) 22 U/L Alanine Aminotransferase (ALT/SGPT) 40 U/L Alkaline Phosphatase 76 U/L Total Protein 6.5 g/dL Albumin 3.3 g/dL Albumin/Globulin Ratio 1.0 Current Medications Medications (Trade) Dose Ordered Sig/Ashvin Route PRN Reason Start Time Stop Time Status Last Admin Dose Admin Acetaminophen (Tylenol) 650 mg PRN Q6HRS PRN PO MILD PAIN / TEMP > 100.3'F 08/24/20 18:15 09/04/20 08:58 Multi-Ingredient Ointment (Analgesic [place]) 1 césar PRN QID PRN TP MUSCLE PAIN 08/24/20 18:15 Al Hydroxide/Mg Hydroxide (Mylanta Plus Xs) 15 ml PRN AFTMEALHC PRN PO DYSPEPSIA 08/24/20 18:15 Magnesium Hydroxide (Milk Of Magnesia) 2,400 mg PRN QHS PRN PO CONSTIPATION 08/24/20 18:15 Aspirin (Aspirin Chewable) 81 mg DAILY PO 08/25/20 09:00 09/23/20 08:27 Cetirizine HCl (ZyrTEC) 10 mg DAILY08 PO 08/25/20 08:00 09/23/20 08:27 Donepezil HCl (Aricept) 23 mg QHS PO 08/24/20 21:00 08/28/20 15:38 DC 08/27/20 20:34 Fluoxetine HCl (PROzac) 20 mg DAILY PO 08/25/20 09:00 09/23/20 08:27 Lorazepam (Ativan) 1 mg PRN Q4HRS PRN PO ANXIETY / AGITATION 08/24/20 18:45 09/04/20 16:12 DC 09/04/20 01:29 Atorvastatin Calcium (Lipitor) 40 mg QHS PO 08/24/20 21:00 09/22/20 19:47 Pantoprazole Sodium (Protonix) 40 mg DAILY08 PO 08/25/20 08:00 09/23/20 08:27 Multivitamins/ Calcium (Thera-M Plus) 1 tab DAILY PO 08/25/20 09:00 09/23/20 08:27 Mupirocin (Bactroban) 1 césar BID92 TP 08/25/20 09:00 09/03/20 12:35 DC 09/01/20 14:00 Fish Oil (Fish Oil) 1,000 mg DAILY PO 08/25/20 09:00 09/23/20 08:27 Olanzapine (ZyPREXA ZYDIS) 2.5 mg PRN Q2HR PRN PO PSYCHOSIS 08/24/20 19:45 09/21/20 19:44 Sertraline HCl (Zoloft) 25 mg DAILY PO 08/26/20 09:00 08/28/20 21:00 DC 08/28/20 08:37 Sertraline HCl (Zoloft) 50 mg DAILY PO 08/29/20 09:00 09/06/20 18:40 DC 09/04/20 08:58 Tamsulosin HCl (Flomax) 0.4 mg QHS PO 08/28/20 21:00 09/22/20 19:47 Mupirocin (Bactroban) 1 césar PRN BID PRN TP RASH 09/03/20 12:45 Diphenhydramine HCl (Benadryl) 50 mg 1X ONCE PO 09/04/20 21:00 09/04/20 21:01 DC 09/04/20 21:21 I have reviewed the current psychotropics carefully including drug interactions. Risk benefit ratio favors no change other than as noted in my dictated progress note. Diagnosis: Problems: (1) Impulse control disorder, unspecified (2) Anxiety disorder, unspecified (3) Dementia, vascular, with depression (4) Dementia, vascular, with delusions (5) Dementia in Alzheimer's disease with depression (6) Dementia in Alzheimer's disease with delusions (7) Dementia of the Alzheimer's type with early onset with behavioral disturbance (8) Major neurocognitive disorder VERENA AGUSTIN MD Sep 23, 2020 09:15
--- NOTE | 2020-09-23 09:37 | PDOC ---
Exam Note: Fercho Note: This note is a late entry for 09/22/2020 covers elements not covered in my initial note. Subjective: The patient was reviewed in the morning of 09/22/2020 for a treatment team meeting with Niecy Naqvi, Indy Nava and Ingris (social media developer), Ingrid, activity therapy and Sanjeev ABREU, discussed and reviewed the chart. He slept 4-1/2 hours previous night. Sleeping average 6 hours. Appetite 95%. The patient remains confused, little irritable at times. We will check CBC, CMP, UA to rule out UTI accounting for this. By the time I met with him in the evening, he was quite pleasant, confused, smiling. Review of Systems: No CV, , pulmonary, ENT system symptoms on review. Mental Status Exam: The patient is oriented to himself. Insight and judgment, recent and remote memory, attention and concentration fund of knowledge is poor consistent with his diagnoses. Laboratory Data: Reviewed. Impression: Major neurocognitive disorder Alzheimer vascular with delusion, depression, behavioral disturbance. Anxiety disorder unspecified. Impulse control disorder unspecified. Plan: Continue current psychotropics from initial note. Assessment: Vital Signs/I&O: Vital Signs Date Time Temp Pulse Resp B/P (MAP) Pulse Ox O2 Delivery O2 Flow Rate FiO2 09/23/20 05:50 97.9 82 16 98/62 (74) 98 09/22/20 05:59 Room Air I & O 09/22/20 09/22/20 09/23/20 15:00 23:00 07:00 Intake Total 480 ml 320 ml Balance 480 ml 320 ml Labs: Laboratory Tests Test 09/22/20 09:40 09/22/20 11:47 SARS-CoV-2 (PCR) Negative (NEGATIVE) White Blood Count 7.0 x10^3/uL (4.0-11.0) Red Blood Count 3.76 x10^6/uL (4.30-5.70) L Hemoglobin 11.4 g/dL (13.0-17.5) L Hematocrit 34.3 % (39.0-53.0) L Mean Corpuscular Volume 91 fL (79-100) Mean Corpuscular Hemoglobin 30 pg (25-35) Mean Corpuscular Hemoglobin Concent 33 g/dL (31-37) Red Cell Distribution Width 14.4 % (11.5-14.5) Platelet Count 287 x10^3/uL (140-400) Neutrophils (%) (Auto) 68 % (31-73) Lymphocytes (%) (Auto) 16 % (24-48) L Monocytes (%) (Auto) 12 % (0-9) H Eosinophils (%) (Auto) 4 % (0-3) H Basophils (%) (Auto) 1 % (0-3) Neutrophils # (Auto) 4.8 x10^3uL (1.8-7.7) Lymphocytes # (Auto) 1.1 x10^3/uL (1.0-4.8) Monocytes # (Auto) 0.8 x10^3/uL (0.0-1.1) Eosinophils # (Auto) 0.3 x10^3/uL (0.0-0.7) Basophils # (Auto) 0.1 x10^3/uL (0.0-0.2) Sodium Level 144 mmol/L (136-145) Potassium Level 4.5 mmol/L (3.5-5.1) Chloride Level 107 mmol/L (98-107) Carbon Dioxide Level 27 mmol/L (21-32) Anion Gap 10 (6-14) Blood Urea Nitrogen 30 mg/dL (8-26) H Creatinine 1.4 mg/dL (0.7-1.3) H Estimated GFR (Cockcroft-Gault) 49.7 BUN/Creatinine Ratio 21 (6-20) H Glucose Level 110 mg/dL (70-99) H Calcium Level 8.7 mg/dL (8.5-10.1) Total Bilirubin 0.8 mg/dL (0.2-1.0) Aspartate Amino Transferase (AST) 22 U/L (15-37) Alanine Aminotransferase (ALT) 40 U/L (16-63) Alkaline Phosphatase 76 U/L (46-116) Total Protein 6.5 g/dL (6.4-8.2) Albumin 3.3 g/dL (3.4-5.0) L Albumin/Globulin Ratio 1.0 (1.0-1.7) Current Medications: Meds: Laboratory Tests Test 09/22/20 09:40 09/22/20 11:47 Coronavirus (COVID-19)(PCR) Negative White Blood Count 7.0 x10^3/uL Red Blood Count 3.76 x10^6/uL Hemoglobin 11.4 g/dL Hematocrit 34.3 % Mean Corpuscular Volume 91 fL Mean Corpuscular Hemoglobin 30 pg Mean Corpuscular Hemoglobin Concent 33 g/dL Red Cell Distribution Width 14.4 % Platelet Count 287 x10^3/uL Neutrophils (%) (Auto) 68 % Lymphocytes (%) (Auto) 16 % Monocytes (%) (Auto) 12 % Eosinophils (%) (Auto) 4 % Basophils (%) (Auto) 1 % Neutrophils # (Auto) 4.8 x10^3uL Lymphocytes # (Auto) 1.1 x10^3/uL Monocytes # (Auto) 0.8 x10^3/uL Eosinophils # (Auto) 0.3 x10^3/uL Basophils # (Auto) 0.1 x10^3/uL Sodium Level 144 mmol/L Potassium Level 4.5 mmol/L Chloride Level 107 mmol/L Carbon Dioxide Level 27 mmol/L Anion Gap 10 Blood Urea Nitrogen 30 mg/dL Creatinine 1.4 mg/dL Estimated GFR (Cockcroft-Gault) 49.7 BUN/Creatinine Ratio 21 Glucose Level 110 mg/dL Calcium Level 8.7 mg/dL Total Bilirubin 0.8 mg/dL Aspartate Amino Transf (AST/SGOT) 22 U/L Alanine Aminotransferase (ALT/SGPT) 40 U/L Alkaline Phosphatase 76 U/L Total Protein 6.5 g/dL Albumin 3.3 g/dL Albumin/Globulin Ratio 1.0 Current Medications Medications (Trade) Dose Ordered Sig/Ashvin Route PRN Reason Start Time Stop Time Status Last Admin Dose Admin Acetaminophen (Tylenol) 650 mg PRN Q6HRS PRN PO MILD PAIN / TEMP > 100.3'F 08/24/20 18:15 09/04/20 08:58 Multi-Ingredient Ointment (Analgesic [place]) 1 césar PRN QID PRN TP MUSCLE PAIN 08/24/20 18:15 Al Hydroxide/Mg Hydroxide (Mylanta Plus Xs) 15 ml PRN AFTMEALHC PRN PO DYSPEPSIA 08/24/20 18:15 Magnesium Hydroxide (Milk Of Magnesia) 2,400 mg PRN QHS PRN PO CONSTIPATION 08/24/20 18:15 Aspirin (Aspirin Chewable) 81 mg DAILY PO 08/25/20 09:00 09/23/20 08:27 Cetirizine HCl (ZyrTEC) 10 mg DAILY08 PO 08/25/20 08:00 09/23/20 08:27 Donepezil HCl (Aricept) 23 mg QHS PO 08/24/20 21:00 08/28/20 15:38 DC 08/27/20 20:34 Fluoxetine HCl (PROzac) 20 mg DAILY PO 08/25/20 09:00 09/23/20 08:27 Lorazepam (Ativan) 1 mg PRN Q4HRS PRN PO ANXIETY / AGITATION 08/24/20 18:45 09/04/20 16:12 DC 09/04/20 01:29 Atorvastatin Calcium (Lipitor) 40 mg QHS PO 08/24/20 21:00 09/22/20 19:47 Pantoprazole Sodium (Protonix) 40 mg DAILY08 PO 08/25/20 08:00 09/23/20 08:27 Multivitamins/ Calcium (Thera-M Plus) 1 tab DAILY PO 08/25/20 09:00 09/23/20 08:27 Mupirocin (Bactroban) 1 césar BID92 TP 08/25/20 09:00 09/03/20 12:35 DC 09/01/20 14:00 Fish Oil (Fish Oil) 1,000 mg DAILY PO 08/25/20 09:00 09/23/20 08:27 Olanzapine (ZyPREXA ZYDIS) 2.5 mg PRN Q2HR PRN PO PSYCHOSIS 08/24/20 19:45 09/21/20 19:44 Sertraline HCl (Zoloft) 25 mg DAILY PO 08/26/20 09:00 08/28/20 21:00 DC 08/28/20 08:37 Sertraline HCl (Zoloft) 50 mg DAILY PO 08/29/20 09:00 09/06/20 18:40 DC 09/04/20 08:58 Tamsulosin HCl (Flomax) 0.4 mg QHS PO 08/28/20 21:00 09/22/20 19:47 Mupirocin (Bactroban) 1 césar PRN BID PRN TP RASH 09/03/20 12:45 Diphenhydramine HCl (Benadryl) 50 mg 1X ONCE PO 09/04/20 21:00 09/04/20 21:01 DC 09/04/20 21:21 I have reviewed the current psychotropics carefully including drug interactions. Risk benefit ratio favors no change other than as noted in my dictated progress note. Diagnosis: Problems: (1) Impulse control disorder, unspecified (2) Anxiety disorder, unspecified (3) Dementia, vascular, with depression (4) Dementia, vascular, with delusions (5) Dementia in Alzheimer's disease with depression (6) Dementia in Alzheimer's disease with delusions (7) Dementia of the Alzheimer's type with early onset with behavioral disturbance (8) Major neurocognitive disorder VERENA AGUSTIN MD Sep 23, 2020 09:36
[2020-09-23 16:12] VITALS: BP 98/64
[2020-09-23] MEDS: TAMSULOSIN 0.4 MG CAP.ER.24H. PO SCH (19:52)
[2020-09-23] MEDS: ATORVASTATIN CALCIUM 20 MG TABLET PO SCH (19:53)
[2020-09-23 20:16] LABS: BACTERIA,URINE 0 /HPF (0-FEW); BILIRUBIN,URINE NEG (NEG); CLARITY,URINE CLEAR; COLOR,URINE YELLOW; GLUCOSE,URINE NEG (NEG); NITRITE,URINE NEG (NEG); RBC,URINE OCC /HPF (0-2); SQUAMOUS EPITHELIAL CELL,UR FEW /LPF; UROBILINOGEN,URINE 0.2 mg/dL (0.2 mg/dL)
--- NOTE | 2020-09-23 21:56 | PDOC ---
Exam Note: Fercho Note: Please also refer to the separate dictated note~for this date of service dictated separately.~Patient seen individually. Discussed the patient with Nursing staff reviewed the chart.~Reviewed interim history and current functioning. Reviewed vital signs,~Labs/ Radiology~and current medications noted below. Continue current treatment with the changes noted in the dictated addendum note Assessment: Vital Signs/I&O: Vital Signs Date Time Temp Pulse Resp B/P (MAP) Pulse Ox O2 Delivery O2 Flow Rate FiO2 09/23/20 16:12 97.4 84 18 98/64 (75) 99 09/22/20 05:59 Room Air I & O 09/22/20 09/22/20 09/23/20 15:00 23:00 07:00 Intake Total 480 ml 320 ml Balance 480 ml 320 ml Labs: Laboratory Tests Test 09/23/20 18:00 Urine Collection Type Unknown Urine Color Yellow Urine Clarity Clear Urine pH 6.0 Urine Specific [place] 1.025 Urine Protein Neg (NEG-TRACE) Urine Glucose (UA) Neg mg/dL (NEG) Urine Ketones (Stick) Trace mg/dL (NEG) Urine Blood Neg (NEG) Urine Nitrite Neg (NEG) Urine Bilirubin Neg (NEG) Urine Urobilinogen Dipstick 0.2 mg/dL (0.2 mg/dL) Urine Leukocyte Esterase Neg (NEG) Urine RBC Occ /HPF (0-2) Urine WBC 1-4 /HPF (0-4) Urine Squamous Epithelial Cells Few /LPF Urine Bacteria 0 /HPF (0-FEW) Urine Mucus Slight /LPF Current Medications: Meds: Laboratory Tests Test 09/23/20 18:00 Urine Collection Type Unknown Urine Color Yellow Urine Clarity Clear Urine pH 6.0 Urine Specific [place] 1.025 Urine Protein Neg Urine Glucose (UA) Neg mg/dL Urine Ketones (Stick) Trace mg/dL Urine Blood Neg Urine Nitrite Neg Urine Bilirubin Neg Urine Urobilinogen Dipstick 0.2 mg/dL Urine Leukocyte Esterase Neg Urine RBC Occ /HPF Urine WBC 1-4 /HPF Urine Squamous Epithelial Cells Few /LPF Urine Bacteria 0 /HPF Urine Mucus Slight /LPF Current Medications Medications (Trade) Dose Ordered Sig/Ashvin Route PRN Reason Start Time Stop Time Status Last Admin Dose Admin Acetaminophen (Tylenol) 650 mg PRN Q6HRS PRN PO MILD PAIN / TEMP > 100.3'F 08/24/20 18:15 09/04/20 08:58 Multi-Ingredient Ointment (Analgesic [place]) 1 césar PRN QID PRN TP MUSCLE PAIN 08/24/20 18:15 Al Hydroxide/Mg Hydroxide (Mylanta Plus Xs) 15 ml PRN AFTMEALHC PRN PO DYSPEPSIA 08/24/20 18:15 Magnesium Hydroxide (Milk Of Magnesia) 2,400 mg PRN QHS PRN PO CONSTIPATION 08/24/20 18:15 Aspirin (Aspirin Chewable) 81 mg DAILY PO 08/25/20 09:00 09/23/20 08:27 Cetirizine HCl (ZyrTEC) 10 mg DAILY08 PO 08/25/20 08:00 09/23/20 08:27 Donepezil HCl (Aricept) 23 mg QHS PO 08/24/20 21:00 08/28/20 15:38 DC 08/27/20 20:34 Fluoxetine HCl (PROzac) 20 mg DAILY PO 08/25/20 09:00 09/23/20 08:27 Lorazepam (Ativan) 1 mg PRN Q4HRS PRN PO ANXIETY / AGITATION 08/24/20 18:45 09/04/20 16:12 DC 09/04/20 01:29 Atorvastatin Calcium (Lipitor) 40 mg QHS PO 08/24/20 21:00 09/23/20 19:53 Pantoprazole Sodium (Protonix) 40 mg DAILY08 PO 08/25/20 08:00 09/23/20 08:27 Multivitamins/ Calcium (Thera-M Plus) 1 tab DAILY PO 08/25/20 09:00 09/23/20 08:27 Mupirocin (Bactroban) 1 césar BID92 TP 08/25/20 09:00 09/03/20 12:35 DC 09/01/20 14:00 Fish Oil (Fish Oil) 1,000 mg DAILY PO 08/25/20 09:00 09/23/20 08:27 Olanzapine (ZyPREXA ZYDIS) 2.5 mg PRN Q2HR PRN PO PSYCHOSIS 08/24/20 19:45 09/21/20 19:44 Sertraline HCl (Zoloft) 25 mg DAILY PO 08/26/20 09:00 08/28/20 21:00 DC 08/28/20 08:37 Sertraline HCl (Zoloft) 50 mg DAILY PO 08/29/20 09:00 09/06/20 18:40 DC 09/04/20 08:58 Tamsulosin HCl (Flomax) 0.4 mg QHS PO 08/28/20 21:00 09/23/20 19:52 Mupirocin (Bactroban) 1 césar PRN BID PRN TP RASH 09/03/20 12:45 Diphenhydramine HCl (Benadryl) 50 mg 1X ONCE PO 09/04/20 21:00 09/04/20 21:01 DC 09/04/20 21:21 I have reviewed the current psychotropics carefully including drug interactions. Risk benefit ratio favors no change other than as noted in my dictated progress note. Diagnosis: Problems: (1) Impulse control disorder, unspecified (2) Anxiety disorder, unspecified (3) Dementia, vascular, with depression (4) Dementia, vascular, with delusions (5) Dementia in Alzheimer's disease with depression (6) Dementia in Alzheimer's disease with delusions (7) Dementia of the Alzheimer's type with early onset with behavioral disturbance (8) Major neurocognitive disorder VERENA AGUSTIN MD Sep 23, 2020 21:56
[2020-09-24 05:58] VITALS: BP 129/72
--- NOTE | 2020-09-24 06:25 | PDOC ---
Exam Note: Fercho Note: This note is a late entry for 09/23/2020 covers elements not covered in my initial note. Subjective: The patient was seen individually in the evening of 09/23/2020 with Tala BAREU, discussed and reviewed the chart. He slept 7 hours previous night. He has been pleasant, cooperative, confused. As I met with him in the dayroom, he had some food dropped on his side and seemed somewhat oblivious of it. This was shortly after he had had his supper. Review of Systems: No CV, , pulmonary, ENT system symptoms on review. Mental Status Exam: The patient is oriented to himself. Insight and judgment, recent and remote memory, attention and concentration fund of knowledge is poor consistent with his diagnoses. Laboratory Data: Reviewed. Impression: Major neurocognitive disorder Alzheimer vascular with delusion, de pression, behavioral disturbance. Anxiety disorder unspecified. Impulse control disorder unspecified. Plan: Continue current psychotropics from initial note. Assessment: Vital Signs/I&O: Vital Signs Date Time Temp Pulse Resp B/P (MAP) Pulse Ox O2 Delivery O2 Flow Rate FiO2 09/24/20 05:58 97.7 72 18 129/72 (91) 96 Room Air I & O 09/23/20 09/23/20 09/24/20 15:00 23:00 07:00 Intake Total 440 ml 240 ml 240 ml Balance 440 ml 240 ml 240 ml Labs: Laboratory Tests Test 09/23/20 18:00 Urine Collection Type Unknown Urine Color Yellow Urine Clarity Clear Urine pH 6.0 Urine Specific [place] 1.025 Urine Protein Neg (NEG-TRACE) Urine Glucose (UA) Neg mg/dL (NEG) Urine Ketones (Stick) Trace mg/dL (NEG) Urine Blood Neg (NEG) Urine Nitrite Neg (NEG) Urine Bilirubin Neg (NEG) Urine Urobilinogen Dipstick 0.2 mg/dL (0.2 mg/dL) Urine Leukocyte Esterase Neg (NEG) Urine RBC Occ /HPF (0-2) Urine WBC 1-4 /HPF (0-4) Urine Squamous Epithelial Cells Few /LPF Urine Bacteria 0 /HPF (0-FEW) Urine Mucus Slight /LPF Current Medications: Meds: Laboratory Tests Test 09/23/20 18:00 Urine Collection Type Unknown Urine Color Yellow Urine Clarity Clear Urine pH 6.0 Urine Specific [place] 1.025 Urine Protein Neg Urine Glucose (UA) Neg mg/dL Urine Ketones (Stick) Trace mg/dL Urine Blood Neg Urine Nitrite Neg Urine Bilirubin Neg Urine Urobilinogen Dipstick 0.2 mg/dL Urine Leukocyte Esterase Neg Urine RBC Occ /HPF Urine WBC 1-4 /HPF Urine Squamous Epithelial Cells Few /LPF Urine Bacteria 0 /HPF Urine Mucus Slight /LPF Current Medications Medications (Trade) Dose Ordered Sig/Ashvin Route PRN Reason Start Time Stop Time Status Last Admin Dose Admin Acetaminophen (Tylenol) 650 mg PRN Q6HRS PRN PO MILD PAIN / TEMP > 100.3'F 08/24/20 18:15 09/04/20 08:58 Multi-Ingredient Ointment (Analgesic [place]) 1 césar PRN QID PRN TP MUSCLE PAIN 08/24/20 18:15 Al Hydroxide/Mg Hydroxide (Mylanta Plus Xs) 15 ml PRN AFTMEALHC PRN PO DYSPEPSIA 08/24/20 18:15 Magnesium Hydroxide (Milk Of Magnesia) 2,400 mg PRN QHS PRN PO CONSTIPATION 08/24/20 18:15 Aspirin (Aspirin Chewable) 81 mg DAILY PO 08/25/20 09:00 09/23/20 08:27 Cetirizine HCl (ZyrTEC) 10 mg DAILY08 PO 08/25/20 08:00 09/23/20 08:27 Donepezil HCl (Aricept) 23 mg QHS PO 08/24/20 21:00 08/28/20 15:38 DC 08/27/20 20:34 Fluoxetine HCl (PROzac) 20 mg DAILY PO 08/25/20 09:00 09/23/20 08:27 Lorazepam (Ativan) 1 mg PRN Q4HRS PRN PO ANXIETY / AGITATION 08/24/20 18:45 09/04/20 16:12 DC 09/04/20 01:29 Atorvastatin Calcium (Lipitor) 40 mg QHS PO 08/24/20 21:00 09/23/20 19:53 Pantoprazole Sodium (Protonix) 40 mg DAILY08 PO 08/25/20 08:00 09/23/20 08:27 Multivitamins/ Calcium (Thera-M Plus) 1 tab DAILY PO 08/25/20 09:00 09/23/20 08:27 Mupirocin (Bactroban) 1 césar BID92 TP 08/25/20 09:00 09/03/20 12:35 DC 09/01/20 14:00 Fish Oil (Fish Oil) 1,000 mg DAILY PO 08/25/20 09:00 09/23/20 08:27 Olanzapine (ZyPREXA ZYDIS) 2.5 mg PRN Q2HR PRN PO PSYCHOSIS 08/24/20 19:45 09/21/20 19:44 Sertraline HCl (Zoloft) 25 mg DAILY PO 08/26/20 09:00 08/28/20 21:00 DC 08/28/20 08:37 Sertraline HCl (Zoloft) 50 mg DAILY PO 08/29/20 09:00 09/06/20 18:40 DC 09/04/20 08:58 Tamsulosin HCl (Flomax) 0.4 mg QHS PO 08/28/20 21:00 09/23/20 19:52 Mupirocin (Bactroban) 1 césar PRN BID PRN TP RASH 09/03/20 12:45 Diphenhydramine HCl (Benadryl) 50 mg 1X ONCE PO 09/04/20 21:00 09/04/20 21:01 DC 09/04/20 21:21 I have reviewed the current psychotropics carefully including drug interactions. Risk benefit ratio favors no change other than as noted in my dictated progress note. Diagnosis: Problems: (1) Impulse control disorder, unspecified (2) Anxiety disorder, unspecified (3) Dementia, vascular, with depression (4) Dementia, vascular, with delusions (5) Dementia in Alzheimer's disease with depression (6) Dementia in Alzheimer's disease with delusions (7) Dementia of the Alzheimer's type with early onset with behavioral disturbance (8) Major neurocognitive disorder VERENA AGUSTIN MD Sep 24, 2020 06:25
[2020-09-24] MEDS: OMEGA-3 FATTY ACIDS/FISH OIL 1,000 MG CAPSULE. PO SCH (08:09)
[2020-09-24] MEDS: PANTOPRAZOLE 40 MG TABLET. PO SCH (08:09)
[2020-09-24] MEDS: MULTIVITAMIN with MINERAL TABLET. PO SCH (08:09)
[2020-09-24] MEDS: ASPIRIN CHEWABLE 81 MG TABLET. PO SCH (08:09)
[2020-09-24] MEDS: CETIRIZINE HCL 10 MG TABLET PO SCH (08:09)
[2020-09-24 15:45] VITALS: BP 114/70
[2020-09-24] MEDS: TAMSULOSIN 0.4 MG CAP.ER.24H. PO SCH (18:23)
[2020-09-24] MEDS: ATORVASTATIN CALCIUM 20 MG TABLET PO SCH (18:23)
--- NOTE | 2020-09-24 21:51 | PDOC ---
Exam Note: Fercho Note: Please also refer to the separate dictated note~for this date of service dictated separately.~Patient seen individually. Discussed the patient with Nursing staff reviewed the chart.~Reviewed interim history and current functioning. Reviewed vital signs,~Labs/ Radiology~and current medications noted below. Continue current treatment with the changes noted in the dictated addendum note Assessment: Vital Signs/I&O: Vital Signs Date Time Temp Pulse Resp B/P (MAP) Pulse Ox O2 Delivery O2 Flow Rate FiO2 09/24/20 15:45 97.8 77 18 114/70 (85) 98 09/24/20 05:58 Room Air I & O 09/23/20 09/23/20 09/24/20 14:59 22:59 06:59 Intake Total 440 ml 240 ml 240 ml Balance 440 ml 240 ml 240 ml Current Medications: Meds: Current Medications Medications (Trade) Dose Ordered Sig/Ashvin Route PRN Reason Start Time Stop Time Status Last Admin Dose Admin Acetaminophen (Tylenol) 650 mg PRN Q6HRS PRN PO MILD PAIN / TEMP > 100.3'F 08/24/20 18:15 09/04/20 08:58 Multi-Ingredient Ointment (Analgesic [place]) 1 césar PRN QID PRN TP MUSCLE PAIN 08/24/20 18:15 Al Hydroxide/Mg Hydroxide (Mylanta Plus Xs) 15 ml PRN AFTMEALHC PRN PO DYSPEPSIA 08/24/20 18:15 Magnesium Hydroxide (Milk Of Magnesia) 2,400 mg PRN QHS PRN PO CONSTIPATION 08/24/20 18:15 Aspirin (Aspirin Chewable) 81 mg DAILY PO 08/25/20 09:00 09/24/20 08:09 Cetirizine HCl (ZyrTEC) 10 mg DAILY08 PO 08/25/20 08:00 09/24/20 08:09 Donepezil HCl (Aricept) 23 mg QHS PO 08/24/20 21:00 08/28/20 15:38 DC 08/27/20 20:34 Fluoxetine HCl (PROzac) 20 mg DAILY PO 08/25/20 09:00 09/24/20 08:09 Lorazepam (Ativan) 1 mg PRN Q4HRS PRN PO ANXIETY / AGITATION 08/24/20 18:45 09/04/20 16:12 DC 09/04/20 01:29 Atorvastatin Calcium (Lipitor) 40 mg QHS PO 08/24/20 21:00 09/24/20 18:23 Pantoprazole Sodium (Protonix) 40 mg DAILY08 PO 08/25/20 08:00 09/24/20 08:09 Multivitamins/ Calcium (Thera-M Plus) 1 tab DAILY PO 08/25/20 09:00 09/24/20 08:09 Mupirocin (Bactroban) 1 césar BID92 TP 08/25/20 09:00 09/03/20 12:35 DC 09/01/20 14:00 Fish Oil (Fish Oil) 1,000 mg DAILY PO 08/25/20 09:00 09/24/20 08:09 Olanzapine (ZyPREXA ZYDIS) 2.5 mg PRN Q2HR PRN PO PSYCHOSIS 08/24/20 19:45 09/21/20 19:44 Sertraline HCl (Zoloft) 25 mg DAILY PO 08/26/20 09:00 08/28/20 21:00 DC 08/28/20 08:37 Sertraline HCl (Zoloft) 50 mg DAILY PO 08/29/20 09:00 09/06/20 18:40 DC 09/04/20 08:58 Tamsulosin HCl (Flomax) 0.4 mg QHS PO 08/28/20 21:00 09/24/20 18:23 Mupirocin (Bactroban) 1 césar PRN BID PRN TP RASH 09/03/20 12:45 Diphenhydramine HCl (Benadryl) 50 mg 1X ONCE PO 09/04/20 21:00 09/04/20 21:01 DC 09/04/20 21:21 I have reviewed the current psychotropics carefully including drug interactions. Risk benefit ratio favors no change other than as noted in my dictated progress note. Diagnosis: Problems: (1) Impulse control disorder, unspecified (2) Anxiety disorder, unspecified (3) Dementia, vascular, with depression (4) Dementia, vascular, with delusions (5) Dementia in Alzheimer's disease with depression (6) Dementia in Alzheimer's disease with delusions (7) Dementia of the Alzheimer's type with early onset with behavioral disturbance (8) Major neurocognitive disorder VERENA AGUSTIN MD Sep 24, 2020 21:51
[2020-09-25 06:01] VITALS: BP 117/61
[2020-09-25] MEDS: PANTOPRAZOLE 40 MG TABLET. PO SCH (08:37)
[2020-09-25] MEDS: CETIRIZINE HCL 10 MG TABLET PO SCH (08:37)
[2020-09-25] MEDS: OMEGA-3 FATTY ACIDS/FISH OIL 1,000 MG CAPSULE. PO SCH (08:37)
[2020-09-25] MEDS: MULTIVITAMIN with MINERAL TABLET. PO SCH (08:37)
[2020-09-25] MEDS: ASPIRIN CHEWABLE 81 MG TABLET. PO SCH (08:37)
--- NOTE | 2020-09-25 09:47 | PDOC ---
Exam Note: Fercho Note: This note is a late entry for 09/24/2020 covers elements not covered in my initial note. Subjective: The patient was seen individually in the evening of 09/24/2020 with Simón ABREU, discussed and reviewed the chart. He slept 6-1/4 hours previous night. He has been cooperative, confused, again oblivious of his surroundings. I met with him in his room. He is pleasant, smiling as before. Review of Systems: No CV, , pulmonary, ENT system symptoms on review. Mental Status Exam: The patient is oriented to himself. Insight and judgment, recent and remote memory, attention and concentration fund of knowledge is poor consistent with his diagnoses. Laboratory Data: Reviewed. Impression: Major neurocognitive disorder Alzheimer vascular with delusion, depression, behavioral disturbance. Anxiety disorder unspecified. Impulse control disorder unspecified. Plan: Continue current psychotropics from initial note. Assessment: Vital Signs/I&O: Vital Signs Date Time Temp Pulse Resp B/P (MAP) Pulse Ox O2 Delivery O2 Flow Rate FiO2 09/25/20 06:01 97.9 81 18 117/61 (79) 95 Room Air I & O 09/24/20 09/24/20 09/25/20 15:00 23:00 07:00 Intake Total 600 ml 600 ml Balance 600 ml 600 ml Current Medications: Meds: Current Medications Medications (Trade) Dose Ordered Sig/Ashvin Route PRN Reason Start Time Stop Time Status Last Admin Dose Admin Acetaminophen (Tylenol) 650 mg PRN Q6HRS PRN PO MILD PAIN / TEMP > 100.3'F 08/24/20 18:15 09/04/20 08:58 Multi-Ingredient Ointment (Analgesic [place]) 1 césar PRN QID PRN TP MUSCLE PAIN 08/24/20 18:15 Al Hydroxide/Mg Hydroxide (Mylanta Plus Xs) 15 ml PRN AFTMEALHC PRN PO DYSPEPSIA 08/24/20 18:15 Magnesium Hydroxide (Milk Of Magnesia) 2,400 mg PRN QHS PRN PO CONSTIPATION 08/24/20 18:15 Aspirin (Aspirin Chewable) 81 mg DAILY PO 08/25/20 09:00 09/25/20 08:37 Cetirizine HCl (ZyrTEC) 10 mg DAILY08 PO 08/25/20 08:00 09/25/20 08:37 Donepezil HCl (Aricept) 23 mg QHS PO 08/24/20 21:00 08/28/20 15:38 DC 08/27/20 20:34 Fluoxetine HCl (PROzac) 20 mg DAILY PO 08/25/20 09:00 09/25/20 08:37 Lorazepam (Ativan) 1 mg PRN Q4HRS PRN PO ANXIETY / AGITATION 08/24/20 18:45 09/04/20 16:12 DC 09/04/20 01:29 Atorvastatin Calcium (Lipitor) 40 mg QHS PO 08/24/20 21:00 09/24/20 18:23 Pantoprazole Sodium (Protonix) 40 mg DAILY08 PO 08/25/20 08:00 09/25/20 08:37 Multivitamins/ Calcium (Thera-M Plus) 1 tab DAILY PO 08/25/20 09:00 09/25/20 08:37 Mupirocin (Bactroban) 1 césar BID92 TP 08/25/20 09:00 09/03/20 12:35 DC 09/01/20 14:00 Fish Oil (Fish Oil) 1,000 mg DAILY PO 08/25/20 09:00 09/25/20 08:37 Olanzapine (ZyPREXA ZYDIS) 2.5 mg PRN Q2HR PRN PO PSYCHOSIS 08/24/20 19:45 09/21/20 19:44 Sertraline HCl (Zoloft) 25 mg DAILY PO 08/26/20 09:00 08/28/20 21:00 DC 08/28/20 08:37 Sertraline HCl (Zoloft) 50 mg DAILY PO 08/29/20 09:00 09/06/20 18:40 DC 09/04/20 08:58 Tamsulosin HCl (Flomax) 0.4 mg QHS PO 08/28/20 21:00 09/24/20 18:23 Mupirocin (Bactroban) 1 césar PRN BID PRN TP RASH 09/03/20 12:45 Diphenhydramine HCl (Benadryl) 50 mg 1X ONCE PO 09/04/20 21:00 09/04/20 21:01 DC 09/04/20 21:21 I have reviewed the current psychotropics carefully including drug interactions. Risk benefit ratio favors no change other than as noted in my dictated progress note. Diagnosis: Problems: (1) Impulse control disorder, unspecified (2) Anxiety disorder, unspecified (3) Dementia, vascular, with depression (4) Dementia, vascular, with delusions (5) Dementia in Alzheimer's disease with depression (6) Dementia in Alzheimer's disease with delusions (7) Dementia of the Alzheimer's type with early onset with behavioral disturbance (8) Major neurocognitive disorder VERENA AGUSTIN MD Sep 25, 2020 09:47
[2020-09-25 15:57] VITALS: BP 96/65
[2020-09-25] MEDS: TAMSULOSIN 0.4 MG CAP.ER.24H. PO SCH (20:50)
[2020-09-25] MEDS: ATORVASTATIN CALCIUM 20 MG TABLET PO SCH (20:50)
--- NOTE | 2020-09-25 21:48 | PDOC ---
Exam Note: Fercho Note: Please also refer to the separate dictated note~for this date of service dictated separately.~Patient seen individually. Discussed the patient with Nursing staff reviewed the chart.~Reviewed interim history and current functioning. Reviewed vital signs,~Labs/ Radiology~and current medications noted below. Continue current treatment with the changes noted in the dictated addendum note Assessment: Vital Signs/I&O: Vital Signs Date Time Temp Pulse Resp B/P (MAP) Pulse Ox O2 Delivery O2 Flow Rate FiO2 09/25/20 15:57 97.8 71 18 96/65 (75) 99 09/25/20 06:01 Room Air I & O 09/24/20 09/24/20 09/25/20 15:00 23:00 07:00 Intake Total 600 ml 600 ml Balance 600 ml 600 ml Current Medications: Meds: Current Medications Medications (Trade) Dose Ordered Sig/[place]vin Route PRN Reason Start Time Stop Time Status Last Admin Dose Admin Acetaminophen (Tylenol) 650 mg PRN Q6HRS PRN PO MILD PAIN / TEMP > 100.3'F 08/24/20 18:15 09/04/20 08:58 Multi-Ingredient Ointment (Analgesic [place]) 1 césar PRN QID PRN TP MUSCLE PAIN 08/24/20 18:15 Al Hydroxide/Mg Hydroxide (Mylanta Plus Xs) 15 ml PRN AFTMEALHC PRN PO DYSPEPSIA 08/24/20 18:15 Magnesium Hydroxide (Milk Of Magnesia) 2,400 mg PRN QHS PRN PO CONSTIPATION 08/24/20 18:15 Aspirin (Aspirin Chewable) 81 mg DAILY PO 08/25/20 09:00 09/25/20 08:37 Cetirizine HCl (ZyrTEC) 10 mg DAILY08 PO 08/25/20 08:00 09/25/20 08:37 Donepezil HCl (Aricept) 23 mg QHS PO 08/24/20 21:00 08/28/20 15:38 DC 08/27/20 20:34 Fluoxetine HCl (PROzac) 20 mg DAILY PO 08/25/20 09:00 09/25/20 08:37 Lorazepam (Ativan) 1 mg PRN Q4HRS PRN PO ANXIETY / AGITATION 08/24/20 18:45 09/04/20 16:12 DC 09/04/20 01:29 Atorvastatin Calcium (Lipitor) 40 mg QHS PO 08/24/20 21:00 09/25/20 20:50 Pantoprazole Sodium (Protonix) 40 mg DAILY08 PO 08/25/20 08:00 09/25/20 08:37 Multivitamins/ Calcium (Thera-M Plus) 1 tab DAILY PO 08/25/20 09:00 09/25/20 08:37 Mupirocin (Bactroban) 1 césar BID92 TP 08/25/20 09:00 09/03/20 12:35 DC 09/01/20 14:00 Fish Oil (Fish Oil) 1,000 mg DAILY PO 08/25/20 09:00 09/25/20 08:37 Olanzapine (ZyPREXA ZYDIS) 2.5 mg PRN Q2HR PRN PO PSYCHOSIS 08/24/20 19:45 09/21/20 19:44 Sertraline HCl (Zoloft) 25 mg DAILY PO 08/26/20 09:00 08/28/20 21:00 DC 08/28/20 08:37 Sertraline HCl (Zoloft) 50 mg DAILY PO 08/29/20 09:00 09/06/20 18:40 DC 09/04/20 08:58 Tamsulosin HCl (Flomax) 0.4 mg QHS PO 08/28/20 21:00 09/25/20 20:50 Mupirocin (Bactroban) 1 césar PRN BID PRN TP RASH 09/03/20 12:45 Diphenhydramine HCl (Benadryl) 50 mg 1X ONCE PO 09/04/20 21:00 09/04/20 21:01 DC 09/04/20 21:21 I have reviewed the current psychotropics carefully including drug interactions. Risk benefit ratio favors no change other than as noted in my dictated progress note. Diagnosis: Problems: (1) Impulse control disorder, unspecified (2) Anxiety disorder, unspecified (3) Dementia, vascular, with depression (4) Dementia, vascular, with delusions (5) Dementia in Alzheimer's disease with depression (6) Dementia in Alzheimer's disease with delusions (7) Dementia of the Alzheimer's type with early onset with behavioral disturbance (8) Major neurocognitive disorder VERENA AGUSTIN MD Sep 25, 2020 21:48
[2020-09-26 05:42] VITALS: BP 105/50
[2020-09-26] MEDS: ASPIRIN CHEWABLE 81 MG TABLET. PO SCH (08:13)
[2020-09-26] MEDS: MULTIVITAMIN with MINERAL TABLET. PO SCH (08:14)
[2020-09-26] MEDS: OMEGA-3 FATTY ACIDS/FISH OIL 1,000 MG CAPSULE. PO SCH (08:14)
[2020-09-26] MEDS: CETIRIZINE HCL 10 MG TABLET PO SCH (08:14)
[2020-09-26] MEDS: PANTOPRAZOLE 40 MG TABLET. PO SCH (08:14)
--- NOTE | 2020-09-26 09:15 | PDOC ---
Exam Note: Fercho Note: This note is a late entry for 09/25/2020 covers elements not covered in my initial note. Subjective: The patient was seen individually in the evening of 09/25/2020 with Tala ABREU, discussed and reviewed the chart. He slept 5-3/4 hours previous night. He is awake, alert, and oriented to himself. He is pleasant, smiling, wandering the hallways. He is however redirectable. He is compliant with medications. Reportedly he visited with his but oblivious of this as I questioned him in the evening. Review of Systems: No CV, , pulmonary, ENT system symptoms on review. Mental Status Exam: The patient is oriented to himself. He was in the dayroom seated with two other demented ladies, one of which has been closely tracking him but is being redirected. He seems somewhat oblivious to all of this. Insight and judgment, recent and remote memory, attention and concentration fund of knowledge is poor consistent with his diagnoses. Laboratory Data: Reviewed. Impression: Major neurocognitive disorder Alzheimer vascular with delusion, depression, behavioral disturbance. Anxiety disorder unspecified. Impulse control disorder unspecified. Plan: Continue current psychotropics from initial note. Assessment: Vital Signs/I&O: Vital Signs Date Time Temp Pulse Resp B/P (MAP) Pulse Ox O2 Delivery O2 Flow Rate FiO2 09/26/20 05:42 98.3 65 18 105/50 (68) 97 09/25/20 06:01 Room Air I & O 09/25/20 09/25/20 09/26/20 15:00 23:00 07:00 Intake Total 960 ml 560 ml Balance 960 ml 560 ml Current Medications: Meds: Current Medications Medications (Trade) Dose Ordered Sig/Ashvin Route PRN Reason Start Time Stop Time Status Last Admin Dose Admin Acetaminophen (Tylenol) 650 mg PRN Q6HRS PRN PO MILD PAIN / TEMP > 100.3'F 08/24/20 18:15 09/04/20 08:58 Multi-Ingredient Ointment (Analgesic [place]) 1 césar PRN QID PRN TP MUSCLE PAIN 08/24/20 18:15 Al Hydroxide/Mg Hydroxide (Mylanta Plus Xs) 15 ml PRN AFTMEALHC PRN PO DYSPEPSIA 08/24/20 18:15 Magnesium Hydroxide (Milk Of Magnesia) 2,400 mg PRN QHS PRN PO CONSTIPATION 08/24/20 18:15 Aspirin (Aspirin Chewable) 81 mg DAILY PO 08/25/20 09:00 09/26/20 08:13 Cetirizine HCl (ZyrTEC) 10 mg DAILY08 PO 08/25/20 08:00 09/26/20 08:14 Donepezil HCl (Aricept) 23 mg QHS PO 08/24/20 21:00 08/28/20 15:38 DC 08/27/20 20:34 Fluoxetine HCl (PROzac) 20 mg DAILY PO 08/25/20 09:00 09/26/20 08:14 Lorazepam (Ativan) 1 mg PRN Q4HRS PRN PO ANXIETY / AGITATION 08/24/20 18:45 09/04/20 16:12 DC 09/04/20 01:29 Atorvastatin Calcium (Lipitor) 40 mg QHS PO 08/24/20 21:00 09/25/20 20:50 Pantoprazole Sodium (Protonix) 40 mg DAILY08 PO 08/25/20 08:00 09/26/20 08:14 Multivitamins/ Calcium (Thera-M Plus) 1 tab DAILY PO 08/25/20 09:00 09/26/20 08:14 Mupirocin (Bactroban) 1 césar BID92 TP 08/25/20 09:00 09/03/20 12:35 DC 09/01/20 14:00 Fish Oil (Fish Oil) 1,000 mg DAILY PO 08/25/20 09:00 09/26/20 08:14 Olanzapine (ZyPREXA ZYDIS) 2.5 mg PRN Q2HR PRN PO PSYCHOSIS 08/24/20 19:45 09/21/20 19:44 Sertraline HCl (Zoloft) 25 mg DAILY PO 08/26/20 09:00 08/28/20 21:00 DC 08/28/20 08:37 Sertraline HCl (Zoloft) 50 mg DAILY PO 08/29/20 09:00 09/06/20 18:40 DC 09/04/20 08:58 Tamsulosin HCl (Flomax) 0.4 mg QHS PO 08/28/20 21:00 09/25/20 20:50 Mupirocin (Bactroban) 1 césar PRN BID PRN TP RASH 09/03/20 12:45 Diphenhydramine HCl (Benadryl) 50 mg 1X ONCE PO 09/04/20 21:00 09/04/20 21:01 DC 09/04/20 21:21 I have reviewed the current psychotropics carefully including drug interactions. Risk benefit ratio favors no change other than as noted in my dictated progress note. Diagnosis: Problems: (1) Impulse control disorder, unspecified (2) Anxiety disorder, unspecified (3) Dementia, vascular, with depression (4) Dementia, vascular, with delusions (5) Dementia in Alzheimer's disease with depression (6) Dementia in Alzheimer's disease with delusions (7) Dementia of the Alzheimer's type with early onset with behavioral disturbance (8) Major neurocognitive disorder VERENA AGUSTIN MD Sep 26, 2020 09:15
[2020-09-26 15:56] VITALS: BP 112/74
[2020-09-26] MEDS: TAMSULOSIN 0.4 MG CAP.ER.24H. PO SCH (19:57)
[2020-09-26] MEDS: ATORVASTATIN CALCIUM 20 MG TABLET PO SCH (19:57)
--- NOTE | 2020-09-26 21:55 | PDOC ---
Exam Note: Fercho Note: Please also refer to the separate dictated note~for this date of service dictated separately.~Patient seen individually. Discussed the patient with Nursing staff reviewed the chart.~Reviewed interim history and current functioning. Reviewed vital signs,~Labs/ Radiology~and current medications noted below. Continue current treatment with the changes noted in the dictated addendum note Assessment: Vital Signs/I&O: Vital Signs Date Time Temp Pulse Resp B/P (MAP) Pulse Ox O2 Delivery O2 Flow Rate FiO2 09/26/20 15:56 98.3 78 18 112/74 (87) 99 09/25/20 06:01 Room Air I & O 09/25/20 09/25/20 09/26/20 14:59 22:59 06:59 Intake Total 960 ml 560 ml Balance 960 ml 560 ml Current Medications: Meds: Current Medications Medications (Trade) Dose Ordered Sig/Ashvin Route PRN Reason Start Time Stop Time Status Last Admin Dose Admin Acetaminophen (Tylenol) 650 mg PRN Q6HRS PRN PO MILD PAIN / TEMP > 100.3'F 08/24/20 18:15 09/04/20 08:58 Multi-Ingredient Ointment (Analgesic [place]) 1 césar PRN QID PRN TP MUSCLE PAIN 08/24/20 18:15 Al Hydroxide/Mg Hydroxide (Mylanta Plus Xs) 15 ml PRN AFTMEALHC PRN PO DYSPEPSIA 08/24/20 18:15 Magnesium Hydroxide (Milk Of Magnesia) 2,400 mg PRN QHS PRN PO CONSTIPATION 08/24/20 18:15 Aspirin (Aspirin Chewable) 81 mg DAILY PO 08/25/20 09:00 09/26/20 08:13 Cetirizine HCl (ZyrTEC) 10 mg DAILY08 PO 08/25/20 08:00 09/26/20 08:14 Donepezil HCl (Aricept) 23 mg QHS PO 08/24/20 21:00 08/28/20 15:38 DC 08/27/20 20:34 Fluoxetine HCl (PROzac) 20 mg DAILY PO 08/25/20 09:00 09/26/20 08:14 Lorazepam (Ativan) 1 mg PRN Q4HRS PRN PO ANXIETY / AGITATION 08/24/20 18:45 09/04/20 16:12 DC 09/04/20 01:29 Atorvastatin Calcium (Lipitor) 40 mg QHS PO 08/24/20 21:00 09/26/20 19:57 Pantoprazole Sodium (Protonix) 40 mg DAILY08 PO 08/25/20 08:00 09/26/20 08:14 Multivitamins/ Calcium (Thera-M Plus) 1 tab DAILY PO 08/25/20 09:00 09/26/20 08:14 Mupirocin (Bactroban) 1 césar BID92 TP 08/25/20 09:00 09/03/20 12:35 DC 09/01/20 14:00 Fish Oil (Fish Oil) 1,000 mg DAILY PO 08/25/20 09:00 09/26/20 08:14 Olanzapine (ZyPREXA ZYDIS) 2.5 mg PRN Q2HR PRN PO PSYCHOSIS 08/24/20 19:45 09/21/20 19:44 Sertraline HCl (Zoloft) 25 mg DAILY PO 08/26/20 09:00 08/28/20 21:00 DC 08/28/20 08:37 Sertraline HCl (Zoloft) 50 mg DAILY PO 08/29/20 09:00 09/06/20 18:40 DC 09/04/20 08:58 Tamsulosin HCl (Flomax) 0.4 mg QHS PO 08/28/20 21:00 09/26/20 19:57 Mupirocin (Bactroban) 1 césar PRN BID PRN TP RASH 09/03/20 12:45 Diphenhydramine HCl (Benadryl) 50 mg 1X ONCE PO 09/04/20 21:00 09/04/20 21:01 DC 09/04/20 21:21 I have reviewed the current psychotropics carefully including drug interactions. Risk benefit ratio favors no change other than as noted in my dictated progress note. Diagnosis: Problems: (1) Impulse control disorder, unspecified (2) Anxiety disorder, unspecified (3) Dementia, vascular, with depression (4) Dementia, vascular, with delusions (5) Dementia in Alzheimer's disease with depression (6) Dementia in Alzheimer's disease with delusions (7) Dementia of the Alzheimer's type with early onset with behavioral disturbance (8) Major neurocognitive disorder VERENA AGUSTIN MD Sep 26, 2020 21:55
[2020-09-27 06:09] VITALS: BP 119/74
[2020-09-27] MEDS: ASPIRIN CHEWABLE 81 MG TABLET. PO SCH (08:25)
[2020-09-27] MEDS: CETIRIZINE HCL 10 MG TABLET PO SCH (08:25)
[2020-09-27] MEDS: PANTOPRAZOLE 40 MG TABLET. PO SCH (08:25)
[2020-09-27] MEDS: MULTIVITAMIN with MINERAL TABLET. PO SCH (08:25)
[2020-09-27] MEDS: OMEGA-3 FATTY ACIDS/FISH OIL 1,000 MG CAPSULE. PO SCH (08:25)
--- NOTE | 2020-09-27 08:55 | PDOC ---
Exam Note: Fercho Note: This note is a late entry for 09/26/2020 covers elements not covered in my initial note. Subjective: The patient was seen individually in the evening of 09/26/2020 with Brittany ABREU, discussed and reviewed the chart. He slept 7-1/2 hours previous night. He remains confused, pleasant, smiling as I met with him, oblivious of his surroundings. Social service staff is actively seeking placement and none obtained so far. Review of Systems: No CV, , pulmonary, ENT system symptoms on review. Mental Status Exam: The patient is oriented to himself. I met with him in the dayroom. He was again seated next to one of the female demented patients who has been following him around. He is pleasant, smiling remarking on my tie and how much he liked it. Insight and judgment, recent and remote memory, attention and concentration fund of knowledge is poor consistent with his diagnoses. Laboratory Data: Reviewed. Impression: Major neurocognitive disorder Alzheimer vascular with delusion, depression, behavioral disturbance. Anxiety disorder unspecified. Impulse control disorder unspecified. Plan: Continue current psychotropics from initial note. Assessment: Vital Signs/I&O: Vital Signs Date Time Temp Pulse Resp B/P (MAP) Pulse Ox O2 Delivery O2 Flow Rate FiO2 09/27/20 06:09 97.9 67 20 119/74 (89) 99 Room Air I & O 09/26/20 09/26/20 09/27/20 15:00 23:00 07:00 Intake Total 600 ml 720 ml Balance 600 ml 720 ml Current Medications: Meds: Current Medications Medications (Trade) Dose Ordered Sig/Ashvin Route PRN Reason Start Time Stop Time Status Last Admin Dose Admin Acetaminophen (Tylenol) 650 mg PRN Q6HRS PRN PO MILD PAIN / TEMP > 100.3'F 08/24/20 18:15 09/04/20 08:58 Multi-Ingredient Ointment (Analgesic [place]) 1 césar PRN QID PRN TP MUSCLE PAIN 08/24/20 18:15 Al Hydroxide/Mg Hydroxide (Mylanta Plus Xs) 15 ml PRN AFTMEALHC PRN PO DYSPEPSIA 08/24/20 18:15 Magnesium Hydroxide (Milk Of Magnesia) 2,400 mg PRN QHS PRN PO CONSTIPATION 08/24/20 18:15 Aspirin (Aspirin Chewable) 81 mg DAILY PO 08/25/20 09:00 09/27/20 08:25 Cetirizine HCl (ZyrTEC) 10 mg DAILY08 PO 08/25/20 08:00 09/27/20 08:25 Donepezil HCl (Aricept) 23 mg QHS PO 08/24/20 21:00 08/28/20 15:38 DC 08/27/20 20:34 Fluoxetine HCl (PROzac) 20 mg DAILY PO 08/25/20 09:00 09/27/20 08:26 Lorazepam (Ativan) 1 mg PRN Q4HRS PRN PO ANXIETY / AGITATION 08/24/20 18:45 09/04/20 16:12 DC 09/04/20 01:29 Atorvastatin Calcium (Lipitor) 40 mg QHS PO 08/24/20 21:00 09/26/20 19:57 Pantoprazole Sodium (Protonix) 40 mg DAILY08 PO 08/25/20 08:00 09/27/20 08:25 Multivitamins/ Calcium (Thera-M Plus) 1 tab DAILY PO 08/25/20 09:00 09/27/20 08:25 Mupirocin (Bactroban) 1 césar BID92 TP 08/25/20 09:00 09/03/20 12:35 DC 09/01/20 14:00 Fish Oil (Fish Oil) 1,000 mg DAILY PO 08/25/20 09:00 09/27/20 08:25 Olanzapine (ZyPREXA ZYDIS) 2.5 mg PRN Q2HR PRN PO PSYCHOSIS 08/24/20 19:45 09/21/20 19:44 Sertraline HCl (Zoloft) 25 mg DAILY PO 08/26/20 09:00 08/28/20 21:00 DC 08/28/20 08:37 Sertraline HCl (Zoloft) 50 mg DAILY PO 08/29/20 09:00 09/06/20 18:40 DC 09/04/20 08:58 Tamsulosin HCl (Flomax) 0.4 mg QHS PO 08/28/20 21:00 09/26/20 19:57 Mupirocin (Bactroban) 1 césar PRN BID PRN TP RASH 09/03/20 12:45 Diphenhydramine HCl (Benadryl) 50 mg 1X ONCE PO 09/04/20 21:00 09/04/20 21:01 DC 09/04/20 21:21 I have reviewed the current psychotropics carefully including drug interactions. Risk benefit ratio favors no change other than as noted in my dictated progress note. Diagnosis: Problems: (1) Impulse control disorder, unspecified (2) Anxiety disorder, unspecified (3) Dementia, vascular, with depression (4) Dementia, vascular, with delusions (5) Dementia in Alzheimer's disease with depression (6) Dementia in Alzheimer's disease with delusions (7) Dementia of the Alzheimer's type with early onset with behavioral disturbance (8) Major neurocognitive disorder VERENA AGUSTIN MD Sep 27, 2020 08:55
[2020-09-27 15:52] VITALS: BP 115/76
[2020-09-27] MEDS: TAMSULOSIN 0.4 MG CAP.ER.24H. PO SCH (20:18)
[2020-09-27] MEDS: ATORVASTATIN CALCIUM 20 MG TABLET PO SCH (20:18)
--- NOTE | 2020-09-27 22:12 | PDOC ---
Exam Note: Fercho Note: Please also refer to the separate dictated note~for this date of service dictated separately.~Patient seen individually. Discussed the patient with Nursing staff reviewed the chart.~Reviewed interim history and current functioning. Reviewed vital signs,~Labs/ Radiology~and current medications noted below. Continue current treatment with the changes noted in the dictated addendum note Assessment: Vital Signs/I&O: Vital Signs Date Time Temp Pulse Resp B/P (MAP) Pulse Ox O2 Delivery O2 Flow Rate FiO2 09/27/20 15:52 98.2 71 16 115/76 (89) 99 09/27/20 06:09 Room Air I & O 09/26/20 09/26/20 09/27/20 15:00 23:00 07:00 Intake Total 600 ml 720 ml Balance 600 ml 720 ml Current Medications: Meds: Current Medications Medications (Trade) Dose Ordered Sig/Ashvin Route PRN Reason Start Time Stop Time Status Last Admin Dose Admin Acetaminophen (Tylenol) 650 mg PRN Q6HRS PRN PO MILD PAIN / TEMP > 100.3'F 08/24/20 18:15 09/04/20 08:58 Multi-Ingredient Ointment (Analgesic [place]) 1 césar PRN QID PRN TP MUSCLE PAIN 08/24/20 18:15 Al Hydroxide/Mg Hydroxide (Mylanta Plus Xs) 15 ml PRN AFTMEALHC PRN PO DYSPEPSIA 08/24/20 18:15 Magnesium Hydroxide (Milk Of Magnesia) 2,400 mg PRN QHS PRN PO CONSTIPATION 08/24/20 18:15 Aspirin (Aspirin Chewable) 81 mg DAILY PO 08/25/20 09:00 09/27/20 08:25 Cetirizine HCl (ZyrTEC) 10 mg DAILY08 PO 08/25/20 08:00 09/27/20 08:25 Donepezil HCl (Aricept) 23 mg QHS PO 08/24/20 21:00 08/28/20 15:38 DC 08/27/20 20:34 Fluoxetine HCl (PROzac) 20 mg DAILY PO 08/25/20 09:00 09/27/20 08:26 Lorazepam (Ativan) 1 mg PRN Q4HRS PRN PO ANXIETY / AGITATION 08/24/20 18:45 09/04/20 16:12 DC 09/04/20 01:29 Atorvastatin Calcium (Lipitor) 40 mg QHS PO 08/24/20 21:00 09/27/20 20:18 Pantoprazole Sodium (Protonix) 40 mg DAILY08 PO 08/25/20 08:00 09/27/20 08:25 Multivitamins/ Calcium (Thera-M Plus) 1 tab DAILY PO 08/25/20 09:00 09/27/20 08:25 Mupirocin (Bactroban) 1 césar BID92 TP 08/25/20 09:00 09/03/20 12:35 DC 09/01/20 14:00 Fish Oil (Fish Oil) 1,000 mg DAILY PO 08/25/20 09:00 09/27/20 08:25 Olanzapine (ZyPREXA ZYDIS) 2.5 mg PRN Q2HR PRN PO PSYCHOSIS 08/24/20 19:45 09/21/20 19:44 Sertraline HCl (Zoloft) 25 mg DAILY PO 08/26/20 09:00 08/28/20 21:00 DC 08/28/20 08:37 Sertraline HCl (Zoloft) 50 mg DAILY PO 08/29/20 09:00 09/06/20 18:40 DC 09/04/20 08:58 Tamsulosin HCl (Flomax) 0.4 mg QHS PO 08/28/20 21:00 09/27/20 20:18 Mupirocin (Bactroban) 1 césar PRN BID PRN TP RASH 09/03/20 12:45 Diphenhydramine HCl (Benadryl) 50 mg 1X ONCE PO 09/04/20 21:00 09/04/20 21:01 DC 09/04/20 21:21 Olanzapine (ZyPREXA ZYDIS) 5 mg 1X ONCE PO 09/27/20 18:30 09/27/20 18:31 DC 09/27/20 18:30 Current Medications Medications (Trade) Dose Ordered Sig/Ashvin Route PRN Reason Start Time Stop Time Status Last Admin Dose Admin Olanzapine (ZyPREXA ZYDIS) 5 mg 1X ONCE PO 09/27/20 18:30 09/27/20 18:31 DC 09/27/20 18:30 I have reviewed the current psychotropics carefully including drug interactions. Risk benefit ratio favors no change other than as noted in my dictated progress note. Diagnosis: Problems: (1) Impulse control disorder, unspecified (2) Anxiety disorder, unspecified (3) Dementia, vascular, with depression (4) Dementia, vascular, with delusions (5) Dementia in Alzheimer's disease with depression (6) Dementia in Alzheimer's disease with delusions (7) Dementia of the Alzheimer's type with early onset with behavioral disturbance (8) Major neurocognitive disorder VERENA AGUSTIN MD Sep 27, 2020 22:12
[2020-09-28 06:28] VITALS: BP 108/68
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
[2020-09-28] MEDS: CETIRIZINE HCL 10 MG TABLET PO SCH (08:18)
[2020-09-28] MEDS: PANTOPRAZOLE 40 MG TABLET. PO SCH (08:18)
[2020-09-28] MEDS: OMEGA-3 FATTY ACIDS/FISH OIL 1,000 MG CAPSULE. PO SCH (08:18)
[2020-09-28] MEDS: MULTIVITAMIN with MINERAL TABLET. PO SCH (08:19)
[2020-09-28] MEDS: ASPIRIN CHEWABLE 81 MG TABLET. PO SCH (08:19)
[2020-09-28 15:47] VITALS: BP 105/70
[2020-09-28] MEDS: DIVALPROEX 125 MG CAP.SPRINK PO SCH (17:36)
[2020-09-28] MEDS: TAMSULOSIN 0.4 MG CAP.ER.24H. PO SCH (19:50)
[2020-09-28] MEDS: ATORVASTATIN CALCIUM 20 MG TABLET PO SCH (19:50)
--- NOTE | 2020-09-28 21:58 | PDOC ---
Exam Note: Fercho Note: Please also refer to the separate dictated note~for this date of service dictated separately.~Patient seen individually. Discussed the patient with Nursing staff reviewed the chart.~Reviewed interim history and current functioning. Reviewed vital signs,~Labs/ Radiology~and current medications noted below. Continue current treatment with the changes noted in the dictated addendum note Assessment: Vital Signs/I&O: Vital Signs Date Time Temp Pulse Resp B/P (MAP) Pulse Ox O2 Delivery O2 Flow Rate FiO2 09/28/20 15:47 97.9 74 16 105/70 (82) 99 09/27/20 06:09 Room Air I & O 09/27/20 09/27/20 09/28/20 15:00 23:00 07:00 Intake Total 720 ml 600 ml Balance 720 ml 600 ml Current Medications: Meds: Current Medications Medications (Trade) Dose Ordered Sig/Ashvin Route PRN Reason Start Time Stop Time Status Last Admin Dose Admin Acetaminophen (Tylenol) 650 mg PRN Q6HRS PRN PO MILD PAIN / TEMP > 100.3'F 08/24/20 18:15 09/04/20 08:58 Multi-Ingredient Ointment (Analgesic [place]) 1 césar PRN QID PRN TP MUSCLE PAIN 08/24/20 18:15 Al Hydroxide/Mg Hydroxide (Mylanta Plus Xs) 15 ml PRN AFTMEALHC PRN PO DYSPEPSIA 08/24/20 18:15 Magnesium Hydroxide (Milk Of Magnesia) 2,400 mg PRN QHS PRN PO CONSTIPATION 08/24/20 18:15 Aspirin (Aspirin Chewable) 81 mg DAILY PO 08/25/20 09:00 09/28/20 08:19 Cetirizine HCl (ZyrTEC) 10 mg DAILY08 PO 08/25/20 08:00 09/28/20 08:18 Donepezil HCl (Aricept) 23 mg QHS PO 08/24/20 21:00 08/28/20 15:38 DC 08/27/20 20:34 Fluoxetine HCl (PROzac) 20 mg DAILY PO 08/25/20 09:00 09/28/20 08:19 Lorazepam (Ativan) 1 mg PRN Q4HRS PRN PO ANXIETY / AGITATION 08/24/20 18:45 09/04/20 16:12 DC 09/04/20 01:29 Atorvastatin Calcium (Lipitor) 40 mg QHS PO 08/24/20 21:00 09/28/20 19:50 Pantoprazole Sodium (Protonix) 40 mg DAILY08 PO 08/25/20 08:00 09/28/20 08:18 Multivitamins/ Calcium (Thera-M Plus) 1 tab DAILY PO 08/25/20 09:00 09/28/20 08:19 Mupirocin (Bactroban) 1 césar BID92 TP 08/25/20 09:00 09/03/20 12:35 DC 09/01/20 14:00 Fish Oil (Fish Oil) 1,000 mg DAILY PO 08/25/20 09:00 09/28/20 08:18 Olanzapine (ZyPREXA ZYDIS) 2.5 mg PRN Q2HR PRN PO PSYCHOSIS 08/24/20 19:45 09/21/20 19:44 Sertraline HCl (Zoloft) 25 mg DAILY PO 08/26/20 09:00 08/28/20 21:00 DC 08/28/20 08:37 Sertraline HCl (Zoloft) 50 mg DAILY PO 08/29/20 09:00 09/06/20 18:40 DC 09/04/20 08:58 Tamsulosin HCl (Flomax) 0.4 mg QHS PO 08/28/20 21:00 09/28/20 19:50 Mupirocin (Bactroban) 1 césar PRN BID PRN TP RASH 09/03/20 12:45 Diphenhydramine HCl (Benadryl) 50 mg 1X ONCE PO 09/04/20 21:00 09/04/20 21:01 DC 09/04/20 21:21 Olanzapine (ZyPREXA ZYDIS) 5 mg 1X ONCE PO 09/27/20 18:30 09/27/20 18:31 DC 09/27/20 18:30 Divalproex Sodium (Depakote Sprinkles) 125 mg 0900,1700 PO 09/28/20 17:00 09/28/20 17:36 Current Medications Medications (Trade) Dose Ordered Sig/Ashvin Route PRN Reason Start Time Stop Time Status Last Admin Dose Admin Divalproex Sodium (Depakote Sprinkles) 125 mg 0900,1700 PO 09/28/20 17:00 09/28/20 17:36 I have reviewed the current psychotropics carefully including drug interactions. Risk benefit ratio favors no change other than as noted in my dictated progress note. Diagnosis: Problems: (1) Impulse control disorder, unspecified (2) Anxiety disorder, unspecified (3) Dementia, vascular, with depression (4) Dementia, vascular, with delusions (5) Dementia in Alzheimer's disease with depression (6) Dementia in Alzheimer's disease with delusions (7) Dementia of the Alzheimer's type with early onset with behavioral disturbance (8) Major neurocognitive disorder VERENA AGUSTIN MD Sep 28, 2020 21:58
[2020-09-29 05:38] VITALS: BP 120/73
--- NOTE | 2020-09-29 06:57 | PDOC ---
Exam Note: Fercho Note: This note is a late entry for 09/28/2020 covers elements not covered in my initial note. Subjective: The patient was seen individually in the evening of 09/28/2020 with Brittany ABREU, discussed and reviewed the chart. He slept 7 hours previous night. Overall the patient has been doing better today and according to the nursing report, he is back to his usual. This is in comparison to yesterday when he became extremely aggressive, paranoid, agitated, hitting, kicking, biting at staff, and causing skin tear as part of his biting. None of that is evident today. I met with him in his room at some length. Review of Systems: No CV, , pulmonary, ENT system symptoms on review. Reliability poor. Mental Status Exam: The patient is oriented to himself. Insight and judgment, recent and remote memory, attention and concentration fund of knowledge is poor consistent with his diagnoses. Laboratory Data: Reviewed. Impression: Major neurocognitive disorder Alzheimer vascular with delusion, depression, behavioral disturbance. Anxiety disorder unspecified. Impulse c ontrol disorder unspecified. Plan: Continue current psychotropics from initial note. Continue Prozac 20 mg a day, Zyprexa p.r.n. Start Depakote Sprinkle 125 mg 9 a.m. and 5 p.m. Check CBC, CMP, valproic acid level in 3 days. We are starting Depakote to help some of his impulse control. For the most part the patient does well but I think low dose Depakote would help ameliorate some of what happened yesterday especially since he would be going to a new placement. Assessment: Vital Signs/I&O: Vital Signs Date Time Temp Pulse Resp B/P (MAP) Pulse Ox O2 Delivery O2 Flow Rate FiO2 09/29/20 05:38 97.7 83 20 120/73 (89) 98 09/27/20 06:09 Room Air I & O 09/28/20 09/28/20 09/29/20 15:00 23:00 07:00 Intake Total 720 ml 720 ml Balance 720 ml 720 ml Current Medications: Meds: Current Medications Medications (Trade) Dose Ordered Sig/Ashvin Route PRN Reason Start Time Stop Time Status Last Admin Dose Admin Acetaminophen (Tylenol) 650 mg PRN Q6HRS PRN PO MILD PAIN / TEMP > 100.3'F 08/24/20 18:15 09/04/20 08:58 Multi-Ingredient Ointment (Analgesic [place]) 1 césar PRN QID PRN TP MUSCLE PAIN 08/24/20 18:15 Al Hydroxide/Mg Hydroxide (Mylanta Plus Xs) 15 ml PRN AFTMEALHC PRN PO DYSPEPSIA 08/24/20 18:15 Magnesium Hydroxide (Milk Of Magnesia) 2,400 mg PRN QHS PRN PO CONSTIPATION 08/24/20 18:15 Aspirin (Aspirin Chewable) 81 mg DAILY PO 08/25/20 09:00 09/28/20 08:19 Cetirizine HCl (ZyrTEC) 10 mg DAILY08 PO 08/25/20 08:00 09/28/20 08:18 Donepezil HCl (Aricept) 23 mg QHS PO 08/24/20 21:00 08/28/20 15:38 DC 08/27/20 20:34 Fluoxetine HCl (PROzac) 20 mg DAILY PO 08/25/20 09:00 09/28/20 08:19 Lorazepam (Ativan) 1 mg PRN Q4HRS PRN PO ANXIETY / AGITATION 08/24/20 18:45 09/04/20 16:12 DC 09/04/20 01:29 Atorvastatin Calcium (Lipitor) 40 mg QHS PO 08/24/20 21:00 09/28/20 19:50 Pantoprazole Sodium (Protonix) 40 mg DAILY08 PO 08/25/20 08:00 09/28/20 08:18 Multivitamins/ Calcium (Thera-M Plus) 1 tab DAILY PO 08/25/20 09:00 09/28/20 08:19 Mupirocin (Bactroban) 1 césar BID92 TP 08/25/20 09:00 09/03/20 12:35 DC 09/01/20 14:00 Fish Oil (Fish Oil) 1,000 mg DAILY PO 08/25/20 09:00 09/28/20 08:18 Olanzapine (ZyPREXA ZYDIS) 2.5 mg PRN Q2HR PRN PO PSYCHOSIS 08/24/20 19:45 09/21/20 19:44 Sertraline HCl (Zoloft) 25 mg DAILY PO 08/26/20 09:00 08/28/20 21:00 DC 08/28/20 08:37 Sertraline HCl (Zoloft) 50 mg DAILY PO 08/29/20 09:00 09/06/20 18:40 DC 09/04/20 08:58 Tamsulosin HCl (Flomax) 0.4 mg QHS PO 08/28/20 21:00 09/28/20 19:50 Mupirocin (Bactroban) 1 césar PRN BID PRN TP RASH 09/03/20 12:45 Diphenhydramine HCl (Benadryl) 50 mg 1X ONCE PO 09/04/20 21:00 09/04/20 21:01 DC 09/04/20 21:21 Olanzapine (ZyPREXA ZYDIS) 5 mg 1X ONCE PO 09/27/20 18:30 09/27/20 18:31 DC 09/27/20 18:30 Divalproex Sodium (Depakote Sprinkles) 125 mg 0900,1700 PO 09/28/20 17:00 09/28/20 17:36 Current Medications Medications (Trade) Dose Ordered Sig/Ashvin Route PRN Reason Start Time Stop Time Status Last Admin Dose Admin Divalproex Sodium (Depakote Sprinkles) 125 mg 0900,1700 PO 09/28/20 17:00 09/28/20 17:36 I have reviewed the current psychotropics carefully including drug interactions. Risk benefit ratio favors no change other than as noted in my dictated progress note. Diagnosis: Problems: (1) Impulse control disorder, unspecified (2) Anxiety disorder, unspecified (3) Dementia, vascular, with depression (4) Dementia, vascular, with delusions (5) Dementia in Alzheimer's disease with depression (6) Dementia in Alzheimer's disease with delusions (7) Dementia of the Alzheimer's type with early onset with behavioral disturbance (8) Major neurocognitive disorder VERENA AGUSTIN MD Sep 29, 2020 06:57
[2020-09-29] MEDS: OMEGA-3 FATTY ACIDS/FISH OIL 1,000 MG CAPSULE. PO SCH (08:10)
[2020-09-29] MEDS: ASPIRIN CHEWABLE 81 MG TABLET. PO SCH (08:10)
[2020-09-29] MEDS: DIVALPROEX 125 MG CAP.SPRINK PO SCH ×2 (08:10→15:56)
[2020-09-29] MEDS: MULTIVITAMIN with MINERAL TABLET. PO SCH (08:10)
[2020-09-29] MEDS: CETIRIZINE HCL 10 MG TABLET PO SCH (08:10)
[2020-09-29] MEDS: PANTOPRAZOLE 40 MG TABLET. PO SCH (08:10)
--- NOTE | 2020-09-29 12:14 | TX PLAN ---
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 Change Sleep, Confusion/Disoriented, Poor impulse control, Other Problem in Patient's Words: I cannot care for him at home. Additional Admission Comments: According to the intake, pt was anxious, wandering, restless, insomnia, posturing [facility] staff, struck which resulted in police response Problems Active Problems: wandering restless Inactive Problems: medication compliant Pt Strengths/Limitations Ability for [place]: Poor Cognitive Functioning/Ability: Fair Communication Skills/Ability: Fair Financial Resources: Poor Insight/Judgement: Poor Intellectual Ability: Poor Physical Health: Fair Social Skills: Fair Stability in Family: Fair Stability in School/Work: Poor Verbal Skills: Fair Discharge Criteria Discharge Criteria: No need for close observ., Adequate arrangements @DC, Improved behavior, Improved mood/thought Preliminary Discharge Plan Preliminary DC Plan: Placement Needed Special Precautions Fall Risk: Low Initial D/C Plan Pt is not able to discharge home, will need placement once stable. Identified Discharge Needs: Referral for higher level of care Currently Utilized Resources Currently Utilized Resources/P: Primary Care Physician Identified Problems/Hx/Goals Objectives/Short-Term Goals Short Term Goals: Dec. Aggression, Dec. Outbursts, Medication Stabilization, Monitor Med Effects Short Term Goals in Patient's: N/A Interventions/Frequency Staff Interventions/Frequency&: Psychiatrist to assess pt at least 3x per week for medication management. Social Work to assess pt at least 2x per week to identify barriers to care and finalize discharge planning. Nursing to assess medication effects, behavior modification, and completion of 15 minute checks daily. Encourage participation in group activities (if applicable) or 1:1 engagement based off Activity Dept goals. 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 He received a Bachelors in Sociology. Community Follow-up Primary Care Physician Referrals to higher level of care Community Provider/Family Inpu: Pt has become increasingly aggressive towards his , who is caring for pt. She is not able to care for pt at home any longer. Treatment Plan Explained Patient/Tank Riveter had this treatment plan explained to him/her as indicated by the signature below and has been given the opportunity to ask questions and make suggestions: Date: Patient/Tank Riveter Signature: Status Update Update Pt is eating 100% of meals and sleeping on average 7 hours per night. Pt continues to smile and be pleasantly confused. Pt is calm, cooperative and compliant with staff direction, cares and medications. Pt does attend groups and requires some help in completion of projects. Pt had one episode earlier in the week in which pt had a behavior out of character for him. Pt was able to acknowledge that it was not normal of him and apologized to staff for his behavior. SW is working with pt on sending out referrals for placement; pt can discharge RAVINDRA. WALESKA HARRELL Sep 29, 2020 12:14
[2020-09-29 15:34] VITALS: BP 109/63
[2020-09-29] MEDS: ATORVASTATIN CALCIUM 20 MG TABLET PO SCH (20:38)
[2020-09-29] MEDS: TAMSULOSIN 0.4 MG CAP.ER.24H. PO SCH (20:38)
--- NOTE | 2020-09-29 21:49 | PDOC ---
Exam Note: Fercho Note: Please also refer to the separate dictated note~for this date of service dictated separately.~Patient seen individually. Discussed the patient with Nursing staff reviewed the chart.~Reviewed interim history and current functioning. Reviewed vital signs,~Labs/ Radiology~and current medications noted below. Continue current treatment with the changes noted in the dictated addendum note Assessment: Vital Signs/I&O: Vital Signs Date Time Temp Pulse Resp B/P (MAP) Pulse Ox O2 Delivery O2 Flow Rate FiO2 09/29/20 15:34 98.2 82 16 109/63 (78) 93 09/27/20 06:09 Room Air I & O 09/28/20 09/28/20 09/29/20 15:00 23:00 07:00 Intake Total 720 ml 720 ml Balance 720 ml 720 ml Labs: Laboratory Tests Test 09/29/20 06:30 SARS-CoV-2 (PCR) Negative (NEGATIVE) Current Medications: Meds: Laboratory Tests Test 09/29/20 06:30 Coronavirus (COVID-19)(PCR) Negative Current Medications Medications (Trade) Dose Ordered Sig/Ashvin Route PRN Reason Start Time Stop Time Status Last Admin Dose Admin Acetaminophen (Tylenol) 650 mg PRN Q6HRS PRN PO MILD PAIN / TEMP > 100.3'F 08/24/20 18:15 09/04/20 08:58 Multi-Ingredient Ointment (Analgesic [place]) 1 césar PRN QID PRN TP MUSCLE PAIN 08/24/20 18:15 Al Hydroxide/Mg Hydroxide (Mylanta Plus Xs) 15 ml PRN AFTMEALHC PRN PO DYSPEPSIA 08/24/20 18:15 Magnesium Hydroxide (Milk Of Magnesia) 2,400 mg PRN QHS PRN PO CONSTIPATION 08/24/20 18:15 Aspirin (Aspirin Chewable) 81 mg DAILY PO 08/25/20 09:00 09/29/20 08:10 Cetirizine HCl (ZyrTEC) 10 mg DAILY08 PO 08/25/20 08:00 09/29/20 08:10 Donepezil HCl (Aricept) 23 mg QHS PO 08/24/20 21:00 08/28/20 15:38 DC 08/27/20 20:34 Fluoxetine HCl (PROzac) 20 mg DAILY PO 08/25/20 09:00 09/29/20 08:10 Lorazepam (Ativan) 1 mg PRN Q4HRS PRN PO ANXIETY / AGITATION 08/24/20 18:45 09/04/20 16:12 DC 09/04/20 01:29 Atorvastatin Calcium (Lipitor) 40 mg QHS PO 08/24/20 21:00 09/29/20 20:38 Pantoprazole Sodium (Protonix) 40 mg DAILY08 PO 08/25/20 08:00 09/29/20 08:10 Multivitamins/ Calcium (Thera-M Plus) 1 tab DAILY PO 08/25/20 09:00 09/29/20 08:10 Mupirocin (Bactroban) 1 césar BID92 TP 08/25/20 09:00 09/03/20 12:35 DC 09/01/20 14:00 Fish Oil (Fish Oil) 1,000 mg DAILY PO 08/25/20 09:00 09/29/20 08:10 Olanzapine (ZyPREXA ZYDIS) 2.5 mg PRN Q2HR PRN PO PSYCHOSIS 08/24/20 19:45 09/21/20 19:44 Sertraline HCl (Zoloft) 25 mg DAILY PO 08/26/20 09:00 08/28/20 21:00 DC 08/28/20 08:37 Sertraline HCl (Zoloft) 50 mg DAILY PO 08/29/20 09:00 09/06/20 18:40 DC 09/04/20 08:58 Tamsulosin HCl (Flomax) 0.4 mg QHS PO 08/28/20 21:00 09/29/20 20:38 Mupirocin (Bactroban) 1 césar PRN BID PRN TP RASH 09/03/20 12:45 Diphenhydramine HCl (Benadryl) 50 mg 1X ONCE PO 09/04/20 21:00 09/04/20 21:01 DC 09/04/20 21:21 Olanzapine (ZyPREXA ZYDIS) 5 mg 1X ONCE PO 09/27/20 18:30 09/27/20 18:31 DC 09/27/20 18:30 Divalproex Sodium (Depakote Sprinkles) 125 mg 0900,1700 PO 09/28/20 17:00 09/29/20 15:56 I have reviewed the current psychotropics carefully including drug interactions. Risk benefit ratio favors no change other than as noted in my dictated progress note. Diagnosis: Problems: (1) Impulse control disorder, unspecified (2) Anxiety disorder, unspecified (3) Dementia, vascular, with depression (4) Dementia, vascular, with delusions (5) Dementia in Alzheimer's disease with depression (6) Dementia in Alzheimer's disease with delusions (7) Dementia of the Alzheimer's type with early onset with behavioral disturbance (8) Major neurocognitive disorder VERENA AGUSTIN MD Sep 29, 2020 21:49
[2020-09-30 05:43] VITALS: BP 107/61
[2020-09-30 06:15] LABS: BASO # 0.1 x10^3/uL (0.0-0.2); BASO % 1 % (0-3); EOS # 0.3 x10^3/uL (0.0-0.7); EOS % 4 % (0-3); HEMATOCRIT 36.1 % (39.0-53.0); HEMOGLOBIN 11.9 g/dL (13.0-17.5); LYMPH # 1.3 x10^3/uL (1.0-4.8); LYMPH % 19 % (24-48); MEAN CORPUSCULAR HEMOGLOBIN 30 pg (25-35); MEAN CORPUSCULAR HGB CONC 33 g/dL (31-37); MEAN CORPUSCULAR VOLUME 90 fL (79-100); MONO # 0.6 x10^3/uL (0.0-1.1); MONO % 9 % (0-9); NEUT # 4.5 x10^3uL (1.8-7.7); NEUT % 67 % (31-73); PLATELET COUNT 224 x10^3/uL (140-400); WHITE BLOOD COUNT 6.8 x10^3/uL (4.0-11.0)
[2020-09-30 06:33] LABS: ALBUMIN 3.1 g/dL (3.4-5.0); CALCIUM 8.1 mg/dL (8.5-10.1); CREATININE 1.4 mg/dL (0.7-1.3); GFR 49.7; POTASSIUM 4.4 mmol/L (3.5-5.1); TOTAL BILIRUBIN 0.7 mg/dL (0.2-1.0); TOTAL PROTEIN 6.2 g/dL (6.4-8.2)
--- NOTE | 2020-09-30 06:58 | PDOC ---
Exam Note: Fercho Note: This note is a late entry for 09/29/2020 covers elements not covered in my initial note. Subjective: The patient was reviewed in the morning of 09/29/2020 for a treatment team meeting with Niecy Naqvi, Indy Nava and Ingris (social studies teacher), Ingrid, activity therapy and Tala RN, discussed and reviewed the chart. He slept 5-3/4 hours previous night. The patient has had no further agitation other than what happened a couple of evenings before the way he was quite aggressive, disruptive, bit a nursing staff in the dining area, was hitting and kicking. He has been refused by [facility] and [facility]. Other options are being pursued. Discussed his diagnoses, progress, current psychotropics. Review of Systems: No CV, , pulmonary, ENT system symptoms on review. Reliability poor. Mental Status Exam: The patient is oriented to himself. Insight and judgment, recent and remote memory, attention and concentration fund of knowledge is poor consistent with his diagnoses. Laboratory Data: Reviewed. Impression: Major neurocognitive disorder Alzheimer vascular with delusion, depression, behavioral disturbance. Anxiety disorder unspecified. Impulse control disorder unspecified. Plan: Continue current psychotropics from initial note. We have initiated Depakote 125 mg twice a day. We will check CBC, CMP, valproic acid level. Adjust as clinically indicated. Maintain Prozac 20 mg a day, Zyprexa p.r.n. Assessment: Vital Signs/I&O: Vital Signs Date Time Temp Pulse Resp B/P (MAP) Pulse Ox O2 Delivery O2 Flow Rate FiO2 09/30/20 05:43 97.4 67 16 107/61 (76) 97 Room Air I & O 09/29/20 09/29/20 09/30/20 15:00 23:00 07:00 Intake Total 600 ml 480 ml Balance 600 ml 480 ml Labs: Laboratory Tests Test 09/30/20 05:53 White Blood Count 6.8 x10^3/uL (4.0-11.0) Red Blood Count 4.00 x10^6/uL (4.30-5.70) L Hemoglobin 11.9 g/dL (13.0-17.5) L Hematocrit 36.1 % (39.0-53.0) L Mean Corpuscular Volume 90 fL (79-100) Mean Corpuscular Hemoglobin 30 pg (25-35) Mean Corpuscular Hemoglobin Concent 33 g/dL (31-37) Red Cell Distribution Width 14.0 % (11.5-14.5) Platelet Count 224 x10^3/uL (140-400) Neutrophils (%) (Auto) 67 % (31-73) Lymphocytes (%) (Auto) 19 % (24-48) L Monocytes (%) (Auto) 9 % (0-9) Eosinophils (%) (Auto) 4 % (0-3) H Basophils (%) (Auto) 1 % (0-3) Neutrophils # (Auto) 4.5 x10^3uL (1.8-7.7) Lymphocytes # (Auto) 1.3 x10^3/uL (1.0-4.8) Monocytes # (Auto) 0.6 x10^3/uL (0.0-1.1) Eosinophils # (Auto) 0.3 x10^3/uL (0.0-0.7) Basophils # (Auto) 0.1 x10^3/uL (0.0-0.2) Sodium Level 145 mmol/L (136-145) Potassium Level 4.4 mmol/L (3.5-5.1) Chloride Level 109 mmol/L (98-107) H Carbon Dioxide Level 27 mmol/L (21-32) Anion Gap 9 (6-14) Blood Urea Nitrogen 20 mg/dL (8-26) Creatinine 1.4 mg/dL (0.7-1.3) H Estimated GFR (Cockcroft-Gault) 49.7 BUN/Creatinine Ratio 14 (6-20) Glucose Level 92 mg/dL (70-99) Calcium Level 8.1 mg/dL (8.5-10.1) L Total Bilirubin 0.7 mg/dL (0.2-1.0) Aspartate Amino Transferase (AST) 18 U/L (15-37) Alanine Aminotransferase (ALT) 35 U/L (16-63) Alkaline Phosphatase 72 U/L (46-116) Total Protein 6.2 g/dL (6.4-8.2) L Albumin 3.1 g/dL (3.4-5.0) L Albumin/Globulin Ratio 1.0 (1.0-1.7) Current Medications: Meds: Laboratory Tests Test 09/30/20 05:53 White Blood Count 6.8 x10^3/uL Red Blood Count 4.00 x10^6/uL Hemoglobin 11.9 g/dL Hematocrit 36.1 % Mean Corpuscular Volume 90 fL Mean Corpuscular Hemoglobin 30 pg Mean Corpuscular Hemoglobin Concent 33 g/dL Red Cell Distribution Width 14.0 % Platelet Count 224 x10^3/uL Neutrophils (%) (Auto) 67 % Lymphocytes (%) (Auto) 19 % Monocytes (%) (Auto) 9 % Eosinophils (%) (Auto) 4 % Basophils (%) (Auto) 1 % Neutrophils # (Auto) 4.5 x10^3uL Lymphocytes # (Auto) 1.3 x10^3/uL Monocytes # (Auto) 0.6 x10^3/uL Eosinophils # (Auto) 0.3 x10^3/uL Basophils # (Auto) 0.1 x10^3/uL Sodium Level 145 mmol/L Potassium Level 4.4 mmol/L Chloride Level 109 mmol/L Carbon Dioxide Level 27 mmol/L Anion Gap 9 Blood Urea Nitrogen 20 mg/dL Creatinine 1.4 mg/dL Estimated GFR (Cockcroft-Gault) 49.7 BUN/Creatinine Ratio 14 Glucose Level 92 mg/dL Calcium Level 8.1 mg/dL Total Bilirubin 0.7 mg/dL Aspartate Amino Transf (AST/SGOT) 18 U/L Alanine Aminotransferase (ALT/SGPT) 35 U/L Alkaline Phosphatase 72 U/L Total Protein 6.2 g/dL Albumin 3.1 g/dL Albumin/Globulin Ratio 1.0 Current Medications Medications (Trade) Dose Ordered Sig/Ashvin Route PRN Reason Start Time Stop Time Status Last Admin Dose Admin Acetaminophen (Tylenol) 650 mg PRN Q6HRS PRN PO MILD PAIN / TEMP > 100.3'F 08/24/20 18:15 09/04/20 08:58 Multi-Ingredient Ointment (Analgesic [place]) 1 césar PRN QID PRN TP MUSCLE PAIN 08/24/20 18:15 Al Hydroxide/Mg Hydroxide (Mylanta Plus Xs) 15 ml PRN AFTMEALHC PRN PO DYSPEPSIA 08/24/20 18:15 Magnesium Hydroxide (Milk Of Magnesia) 2,400 mg PRN QHS PRN PO CONSTIPATION 5/5/21 18:15 Aspirin (Aspirin Chewable) 81 mg DAILY PO 08/25/20 09:00 09/29/20 08:10 Cetirizine HCl (ZyrTEC) 10 mg DAILY08 PO 08/25/20 08:00 09/29/20 08:10 Donepezil HCl (Aricept) 23 mg QHS PO 08/24/20 21:00 08/28/20 15:38 DC 08/27/20 20:34 Fluoxetine HCl (PROzac) 20 mg DAILY PO 08/25/20 09:00 09/29/20 08:10 Lorazepam (Ativan) 1 mg PRN Q4HRS PRN PO ANXIETY / AGITATION 08/24/20 18:45 09/04/20 16:12 DC 09/04/20 01:29 Atorvastatin Calcium (Lipitor) 40 mg QHS PO 08/24/20 21:00 09/29/20 20:38 Pantoprazole Sodium (Protonix) 40 mg DAILY08 PO 08/25/20 08:00 09/29/20 08:10 Multivitamins/ Calcium (Thera-M Plus) 1 tab DAILY PO 08/25/20 09:00 09/29/20 08:10 Mupirocin (Bactroban) 1 césar BID92 TP 08/25/20 09:00 09/03/20 12:35 DC 09/01/20 14:00 Fish Oil (Fish Oil) 1,000 mg DAILY PO 08/25/20 09:00 09/29/20 08:10 Olanzapine (ZyPREXA ZYDIS) 2.5 mg PRN Q2HR PRN PO PSYCHOSIS 08/24/20 19:45 09/21/20 19:44 Sertraline HCl (Zoloft) 25 mg DAILY PO 08/26/20 09:00 08/28/20 21:00 DC 08/28/20 08:37 Sertraline HCl (Zoloft) 50 mg DAILY PO 08/29/20 09:00 09/06/20 18:40 DC 09/04/20 08:58 Tamsulosin HCl (Flomax) 0.4 mg QHS PO 08/28/20 21:00 09/29/20 20:38 Mupirocin (Bactroban) 1 césar PRN BID PRN TP RASH 09/03/20 12:45 Diphenhydramine HCl (Benadryl) 50 mg 1X ONCE PO 09/04/20 21:00 09/04/20 21:01 DC 09/04/20 21:21 Olanzapine (ZyPREXA ZYDIS) 5 mg 1X ONCE PO 09/27/20 18:30 09/27/20 18:31 DC 09/27/20 18:30 Divalproex Sodium (Depakote Sprinkles) 125 mg 0900,1700 PO 09/28/20 17:00 09/29/20 15:56 I have reviewed the current psychotropics carefully including drug interactions. Risk benefit ratio favors no change other than as noted in my dictated progress note. Diagnosis: Problems: (1) Impulse control disorder, unspecified (2) Anxiety disorder, unspecified (3) Dementia, vascular, with depression (4) Dementia, vascular, with delusions (5) Dementia in Alzheimer's disease with depression (6) Dementia in Alzheimer's disease with delusions (7) Dementia of the Alzheimer's type with early onset with behavioral disturbance (8) Major neurocognitive disorder VERENA AGUSTIN MD Sep 30, 2020 06:58
[2020-09-30] MEDS: OMEGA-3 FATTY ACIDS/FISH OIL 1,000 MG CAPSULE. PO SCH (08:12)
[2020-09-30] MEDS: ASPIRIN CHEWABLE 81 MG TABLET. PO SCH (08:12)
[2020-09-30] MEDS: DIVALPROEX 125 MG CAP.SPRINK PO SCH ×2 (08:12→16:00)
[2020-09-30] MEDS: CETIRIZINE HCL 10 MG TABLET PO SCH (08:12)
[2020-09-30] MEDS: PANTOPRAZOLE 40 MG TABLET. PO SCH (08:12)
[2020-09-30] MEDS: MULTIVITAMIN with MINERAL TABLET. PO SCH (08:12)
[2020-09-30 15:22] VITALS: BP 111/67
[2020-09-30] MEDS ORDERED: FUROSEMIDE 80 MG TABLET PO ONE (15:30)
[2020-09-30] MEDS: TAMSULOSIN 0.4 MG CAP.ER.24H. PO SCH (19:56)
[2020-09-30] MEDS: ATORVASTATIN CALCIUM 20 MG TABLET PO SCH (19:57)
--- NOTE | 2020-09-30 21:58 | PDOC ---
Exam Note: Fercho Note: Please also refer to the separate dictated note~for this date of service dictated separately.~Patient seen individually. Discussed the patient with Nursing staff reviewed the chart.~Reviewed interim history and current functioning. Reviewed vital signs,~Labs/ Radiology~and current medications noted below. Continue current treatment with the changes noted in the dictated addendum note Assessment: Vital Signs/I&O: Vital Signs Date Time Temp Pulse Resp B/P (MAP) Pulse Ox O2 Delivery O2 Flow Rate FiO2 09/30/20 15:22 97.6 60 18 111/67 (82) 96 Room Air I & O 09/29/20 09/29/20 09/30/20 15:00 23:00 07:00 Intake Total 600 ml 480 ml Balance 600 ml 480 ml Labs: Laboratory Tests Test 09/30/20 05:53 White Blood Count 6.8 x10^3/uL (4.0-11.0) Red Blood Count 4.00 x10^6/uL (4.30-5.70) L Hemoglobin 11.9 g/dL (13.0-17.5) L Hematocrit 36.1 % (39.0-53.0) L Mean Corpuscular Volume 90 fL (79-100) Mean Corpuscular Hemoglobin 30 pg (25-35) Mean Corpuscular Hemoglobin Concent 33 g/dL (31-37) Red Cell Distribution Width 14.0 % (11.5-14.5) Platelet Count 224 x10^3/uL (140-400) Neutrophils (%) (Auto) 67 % (31-73) Lymphocytes (%) (Auto) 19 % (24-48) L Monocytes (%) (Auto) 9 % (0-9) Eosinophils (%) (Auto) 4 % (0-3) H Basophils (%) (Auto) 1 % (0-3) Neutrophils # (Auto) 4.5 x10^3uL (1.8-7.7) Lymphocytes # (Auto) 1.3 x10^3/uL (1.0-4.8) Monocytes # (Auto) 0.6 x10^3/uL (0.0-1.1) Eosinophils # (Auto) 0.3 x10^3/uL (0.0-0.7) Basophils # (Auto) 0.1 x10^3/uL (0.0-0.2) Sodium Level 145 mmol/L (136-145) Potassium Level 4.4 mmol/L (3.5-5.1) Chloride Level 109 mmol/L (98-107) H Carbon Dioxide Level 27 mmol/L (21-32) Anion Gap 9 (6-14) Blood Urea Nitrogen 20 mg/dL (8-26) Creatinine 1.4 mg/dL (0.7-1.3) H Estimated GFR (Cockcroft-Gault) 49.7 BUN/Creatinine Ratio 14 (6-20) Glucose Level 92 mg/dL (70-99) Calcium Level 8.1 mg/dL (8.5-10.1) L Total Bilirubin 0.7 mg/dL (0.2-1.0) Aspartate Amino Transferase (AST) 18 U/L (15-37) Alanine Aminotransferase (ALT) 35 U/L (16-63) Alkaline Phosphatase 72 U/L (46-116) Total Protein 6.2 g/dL (6.4-8.2) L Albumin 3.1 g/dL (3.4-5.0) L Albumin/Globulin Ratio 1.0 (1.0-1.7) Current Medications: Meds: Laboratory Tests Test 09/30/20 05:53 White Blood Count 6.8 x10^3/uL Red Blood Count 4.00 x10^6/uL Hemoglobin 11.9 g/dL Hematocrit 36.1 % Mean Corpuscular Volume 90 fL Mean Corpuscular Hemoglobin 30 pg Mean Corpuscular Hemoglobin Concent 33 g/dL Red Cell Distribution Width 14.0 % Platelet Count 224 x10^3/uL Neutrophils (%) (Auto) 67 % Lymphocytes (%) (Auto) 19 % Monocytes (%) (Auto) 9 % Eosinophils (%) (Auto) 4 % Basophils (%) (Auto) 1 % Neutrophils # (Auto) 4.5 x10^3uL Lymphocytes # (Auto) 1.3 x10^3/uL Monocytes # (Auto) 0.6 x10^3/uL Eosinophils # (Auto) 0.3 x10^3/uL Basophils # (Auto) 0.1 x10^3/uL Sodium Level 145 mmol/L Potassium Level 4.4 mmol/L Chloride Level 109 mmol/L Carbon Dioxide Level 27 mmol/L Anion Gap 9 Blood Urea Nitrogen 20 mg/dL Creatinine 1.4 mg/dL Estimated GFR (Cockcroft-Gault) 49.7 BUN/Creatinine Ratio 14 Glucose Level 92 mg/dL Calcium Level 8.1 mg/dL Total Bilirubin 0.7 mg/dL Aspartate Amino Transf (AST/SGOT) 18 U/L Alanine Aminotransferase (ALT/SGPT) 35 U/L Alkaline Phosphatase 72 U/L Total Protein 6.2 g/dL Albumin 3.1 g/dL Albumin/Globulin Ratio 1.0 Current Medications Medications (Trade) Dose Ordered Sig/Ashvin Route PRN Reason Start Time Stop Time Status Last Admin Dose Admin Acetaminophen (Tylenol) 650 mg PRN Q6HRS PRN PO MILD PAIN / TEMP > 100.3'F 08/24/20 18:15 09/04/20 08:58 Multi-Ingredient Ointment (Analgesic [place]) 1 césar PRN QID PRN TP MUSCLE PAIN 08/24/20 18:15 Al Hydroxide/Mg Hydroxide (Mylanta Plus Xs) 15 ml PRN AFTMEALHC PRN PO DYSPEPSIA 08/24/20 18:15 Magnesium Hydroxide (Milk Of Magnesia) 2,400 mg PRN QHS PRN PO CONSTIPATION 08/24/20 18:15 Aspirin (Aspirin Chewable) 81 mg DAILY PO 08/25/20 09:00 09/30/20 08:12 Cetirizine HCl (ZyrTEC) 10 mg DAILY08 PO 08/25/20 08:00 09/30/20 08:12 Donepezil HCl (Aricept) 23 mg QHS PO 08/24/20 21:00 08/28/20 15:38 DC 08/27/20 20:34 Fluoxetine HCl (PROzac) 20 mg DAILY PO 08/25/20 09:00 09/30/20 08:12 Lorazepam (Ativan) 1 mg PRN Q4HRS PRN PO ANXIETY / AGITATION 08/24/20 18:45 09/04/20 16:12 DC 09/04/20 01:29 Atorvastatin Calcium (Lipitor) 40 mg QHS PO 08/24/20 21:00 09/30/20 19:57 Pantoprazole Sodium (Protonix) 40 mg DAILY08 PO 08/25/20 08:00 09/30/20 08:12 Multivitamins/ Calcium (Thera-M Plus) 1 tab DAILY PO 08/25/20 09:00 09/30/20 08:12 Mupirocin (Bactroban) 1 césar BID92 TP 08/25/20 09:00 09/03/20 12:35 DC 09/01/20 14:00 Fish Oil (Fish Oil) 1,000 mg DAILY PO 08/25/20 09:00 09/30/20 08:12 Olanzapine (ZyPREXA ZYDIS) 2.5 mg PRN Q2HR PRN PO PSYCHOSIS 08/24/20 19:45 09/21/20 19:44 Sertraline HCl (Zoloft) 25 mg DAILY PO 08/26/20 09:00 08/28/20 21:00 DC 08/28/20 08:37 Sertraline HCl (Zoloft) 50 mg DAILY PO 08/29/20 09:00 09/06/20 18:40 DC 09/04/20 08:58 Tamsulosin HCl (Flomax) 0.4 mg QHS PO 08/28/20 21:00 09/30/20 19:56 Mupirocin (Bactroban) 1 césar PRN BID PRN TP RASH 09/03/20 12:45 Diphenhydramine HCl (Benadryl) 50 mg 1X ONCE PO 09/04/20 21:00 09/04/20 21:01 DC 09/04/20 21:21 Olanzapine (ZyPREXA ZYDIS) 5 mg 1X ONCE PO 09/27/20 18:30 09/27/20 18:31 DC 09/27/20 18:30 Divalproex Sodium (Depakote Sprinkles) 125 mg 0900,1700 PO 09/28/20 17:00 09/30/20 16:00 Furosemide (Lasix) 80 mg 1X ONCE PO 09/30/20 15:30 09/30/20 15:31 DC 09/30/20 16:00 Furosemide (Lasix) 80 mg DAILY PO 10/01/20 09:00 Potassium Chloride (Klor-Con) 20 meq DAILYWBKFT PO 10/01/20 08:00 Current Medications Medications (Trade) Dose Ordered Sig/Ashvin Route PRN Reason Start Time Stop Time Status Last Admin Dose Admin Furosemide (Lasix) 80 mg 1X ONCE PO 09/30/20 15:30 09/30/20 15:31 DC 09/30/20 16:00 I have reviewed the current psychotropics carefully including drug interactions. Risk benefit ratio favors no change other than as noted in my dictated progress note. Diagnosis: Problems: (1) Impulse control disorder, unspecified (2) Anxiety disorder, unspecified (3) Dementia, vascular, with depression (4) Dementia, vascular, with delusions (5) Dementia in Alzheimer's disease with depression (6) Dementia in Alzheimer's disease with delusions (7) Dementia of the Alzheimer's type with early onset with behavioral disturbance (8) Major neurocognitive disorder VERENA AGUSTIN MD Sep 30, 2020 21:58
[2020-10-01 05:59] VITALS: BP 121/72
--- NOTE | 2020-10-01 06:46 | PDOC ---
Exam Note: Fercho Note: This note is a late entry for 09/30/2020 covers elements not covered in my initial note. Subjective: The patient was seen individually in the evening of 09/30/2020 with Tala ABREU, discussed and reviewed the chart. He slept 6-1/2 hours previous night. The patient remains confused, alert, oriented to himself. He has difficulty expressing himself. I met with him in the dayroom. He has not been agitated or aggressive. He does get over-stimulated and staff is compensating for this. Review of Systems: No CV, , pulmonary, ENT system symptoms on review. Reliab ility poor. Mental Status Exam: The patient is oriented to himself. I met with him in the dayroom. The patient was smiling. Eye contact remains poor. Speech often response is monosyllabic. Insight and judgment, recent and remote memory, attention and concentration fund of knowledge is poor consistent with his diagnoses. Laboratory Data: Reviewed. Impression: Major neurocognitive disorder Alzheimer vascular with delusion, depression, behavioral disturbance. Anxiety disorder unspecified. Impulse control disorder unspecified. Plan: Continue current psychotropics from initial note. Assessment: Vital Signs/I&O: Vital Signs Date Time Temp Pulse Resp B/P (MAP) Pulse Ox O2 Delivery O2 Flow Rate FiO2 10/01/20 05:59 97.9 92 14 121/72 (88) 94 Room Air I & O 09/30/20 09/30/20 10/01/20 15:00 23:00 07:00 Intake Total 840 ml 600 ml Balance 840 ml 600 ml Current Medications: Meds: Current Medications Medications (Trade) Dose Ordered Sig/Ashvin Route PRN Reason Start Time Stop Time Status Last Admin Dose Admin Acetaminophen (Tylenol) 650 mg PRN Q6HRS PRN PO MILD PAIN / TEMP > 100.3'F 08/24/20 18:15 09/04/20 08:58 Multi-Ingredient Ointment (Analgesic [place]) 1 césar PRN QID PRN TP MUSCLE PAIN 08/24/20 18:15 Al Hydroxide/Mg Hydroxide (Mylanta Plus Xs) 15 ml PRN AFTMEALHC PRN PO DYSPEPSIA 08/24/20 18:15 Magnesium Hydroxide (Milk Of Magnesia) 2,400 mg PRN QHS PRN PO CONSTIPATION 08/24/20 18:15 Aspirin (Aspirin Chewable) 81 mg DAILY PO 08/25/20 09:00 09/30/20 08:12 Cetirizine HCl (ZyrTEC) 10 mg DAILY08 PO 08/25/20 08:00 09/30/20 08:12 Donepezil HCl (Aricept) 23 mg QHS PO 08/24/20 21:00 08/28/20 15:38 DC 08/27/20 20:34 Fluoxetine HCl (PROzac) 20 mg DAILY PO 08/25/20 09:00 09/30/20 08:12 Lorazepam (Ativan) 1 mg PRN Q4HRS PRN PO ANXIETY / AGITATION 08/24/20 18:45 09/04/20 16:12 DC 09/04/20 01:29 Atorvastatin Calcium (Lipitor) 40 mg QHS PO 08/24/20 21:00 09/30/20 19:57 Pantoprazole Sodium (Protonix) 40 mg DAILY08 PO 08/25/20 08:00 09/30/20 08:12 Multivitamins/ Calcium (Thera-M Plus) 1 tab DAILY PO 08/25/20 09:00 09/30/20 08:12 Mupirocin (Bactroban) 1 césar BID92 TP 08/25/20 09:00 09/03/20 12:35 DC 09/01/20 14:00 Fish Oil (Fish Oil) 1,000 mg DAILY PO 08/25/20 09:00 09/30/20 08:12 Olanzapine (ZyPREXA ZYDIS) 2.5 mg PRN Q2HR PRN PO PSYCHOSIS 08/24/20 19:45 09/21/20 19:44 Sertraline HCl (Zoloft) 25 mg DAILY PO 08/26/20 09:00 08/28/20 21:00 DC 08/28/20 08:37 Sertraline HCl (Zoloft) 50 mg DAILY PO 08/29/20 09:00 09/06/20 18:40 DC 09/04/20 08:58 Tamsulosin HCl (Flomax) 0.4 mg QHS PO 08/28/20 21:00 09/30/20 19:56 Mupirocin (Bactroban) 1 césar PRN BID PRN TP RASH 09/03/20 12:45 Diphenhydramine HCl (Benadryl) 50 mg 1X ONCE PO 09/04/20 21:00 09/04/20 21:01 DC 09/04/20 21:21 Olanzapine (ZyPREXA ZYDIS) 5 mg 1X ONCE PO 09/27/20 18:30 09/27/20 18:31 DC 09/27/20 18:30 Divalproex Sodium (Depakote Sprinkles) 125 mg 0900,1700 PO 09/28/20 17:00 09/30/20 16:00 Furosemide (Lasix) 80 mg 1X ONCE PO 09/30/20 15:30 09/30/20 15:31 DC 09/30/20 16:00 Furosemide (Lasix) 80 mg DAILY PO 10/01/20 09:00 Potassium Chloride (Klor-Con) 20 meq DAILYWBKFT PO 10/01/20 08:00 Current Medications Medications (Trade) Dose Ordered Sig/Ashvin Route PRN Reason Start Time Stop Time Status Last Admin Dose Admin Furosemide (Lasix) 80 mg 1X ONCE PO 09/30/20 15:30 09/30/20 15:31 DC 09/30/20 16:00 I have reviewed the current psychotropics carefully including drug interactions. Risk benefit ratio favors no change other than as noted in my dictated progress note. Diagnosis: Problems: (1) Impulse control disorder, unspecified (2) Anxiety disorder, unspecified (3) Dementia, vascular, with depression (4) Dementia, vascular, with delusions (5) Dementia in Alzheimer's disease with depression (6) Dementia in Alzheimer's disease with delusions (7) Dementia of the Alzheimer's type with early onset with behavioral disturbance (8) Major neurocognitive disorder VERENA AGUSTIN MD Oct 01, 2020 06:46
[2020-10-01] MEDS: ASPIRIN CHEWABLE 81 MG TABLET. PO SCH (08:09)
[2020-10-01] MEDS: DIVALPROEX 125 MG CAP.SPRINK PO SCH ×2 (08:09→16:36)
[2020-10-01] MEDS: PANTOPRAZOLE 40 MG TABLET. PO SCH (08:09)
[2020-10-01] MEDS: OMEGA-3 FATTY ACIDS/FISH OIL 1,000 MG CAPSULE. PO SCH (08:09)
[2020-10-01] MEDS: CETIRIZINE HCL 10 MG TABLET PO SCH (08:09)
[2020-10-01] MEDS: MULTIVITAMIN with MINERAL TABLET. PO SCH (08:09)
[2020-10-01] MEDS: POTASSIUM CHLORIDE 20 MEQ TABLET.ER. PO SCH (08:10)
[2020-10-01] MEDS: FUROSEMIDE 40 MG TABLET PO SCH (08:10)
[2020-10-01 15:13] VITALS: BP 111/70
[2020-10-01] MEDS: ATORVASTATIN CALCIUM 20 MG TABLET PO SCH (20:00)
[2020-10-01] MEDS: TAMSULOSIN 0.4 MG CAP.ER.24H. PO SCH (20:00)
--- NOTE | 2020-10-01 21:57 | PDOC ---
Exam Note: Fercho Note: Please also refer to the separate dictated note~for this date of service dictated separately.~Patient seen individually. Discussed the patient with Nursing staff reviewed the chart.~Reviewed interim history and current functioning. Reviewed vital signs,~Labs/ Radiology~and current medications noted below. Continue current treatment with the changes noted in the dictated addendum note Assessment: Vital Signs/I&O: Vital Signs Date Time Temp Pulse Resp B/P (MAP) Pulse Ox O2 Delivery O2 Flow Rate FiO2 10/01/20 15:13 97.1 66 16 111/70 (84) 97 Room Air I & O 09/30/20 09/30/20 10/01/20 15:00 23:00 07:00 Intake Total 840 ml 600 ml Balance 840 ml 600 ml Current Medications: Meds: Current Medications Medications (Trade) Dose Ordered Sig/Ashvin Route PRN Reason Start Time Stop Time Status Last Admin Dose Admin Acetaminophen (Tylenol) 650 mg PRN Q6HRS PRN PO MILD PAIN / TEMP > 100.3'F 08/24/20 18:15 09/04/20 08:58 Multi-Ingredient Ointment (Analgesic [place]) 1 césar PRN QID PRN TP MUSCLE PAIN 08/24/20 18:15 Al Hydroxide/Mg Hydroxide (Mylanta Plus Xs) 15 ml PRN AFTMEALHC PRN PO DYSPEPSIA 08/24/20 18:15 Magnesium Hydroxide (Milk Of Magnesia) 2,400 mg PRN QHS PRN PO CONSTIPATION 08/24/20 18:15 Aspirin (Aspirin Chewable) 81 mg DAILY PO 08/25/20 09:00 10/01/20 08:09 Cetirizine HCl (ZyrTEC) 10 mg DAILY08 PO 08/25/20 08:00 10/01/20 08:09 Donepezil HCl (Aricept) 23 mg QHS PO 08/24/20 21:00 08/28/20 15:38 DC 08/27/20 20:34 Fluoxetine HCl (PROzac) 20 mg DAILY PO 08/25/20 09:00 10/01/20 08:09 Lorazepam (Ativan) 1 mg PRN Q4HRS PRN PO ANXIETY / AGITATION 08/24/20 18:45 09/04/20 16:12 DC 09/04/20 01:29 Atorvastatin Calcium (Lipitor) 40 mg QHS PO 08/24/20 21:00 10/01/20 20:00 Pantoprazole Sodium (Protonix) 40 mg DAILY08 PO 08/25/20 08:00 10/01/20 08:09 Multivitamins/ Calcium (Thera-M Plus) 1 tab DAILY PO 08/25/20 09:00 10/01/20 08:09 Mupirocin (Bactroban) 1 césar BID92 TP 08/25/20 09:00 09/03/20 12:35 DC 09/01/20 14:00 Fish Oil (Fish Oil) 1,000 mg DAILY PO 08/25/20 09:00 10/01/20 08:09 Olanzapine (ZyPREXA ZYDIS) 2.5 mg PRN Q2HR PRN PO PSYCHOSIS 08/24/20 19:45 09/21/20 19:44 Sertraline HCl (Zoloft) 25 mg DAILY PO 08/26/20 09:00 08/28/20 21:00 DC 08/28/20 08:37 Sertraline HCl (Zoloft) 50 mg DAILY PO 08/29/20 09:00 09/06/20 18:40 DC 09/04/20 08:58 Tamsulosin HCl (Flomax) 0.4 mg QHS PO 08/28/20 21:00 10/01/20 20:00 Mupirocin (Bactroban) 1 césar PRN BID PRN TP RASH 09/03/20 12:45 Diphenhydramine HCl (Benadryl) 50 mg 1X ONCE PO 09/04/20 21:00 09/04/20 21:01 DC 09/04/20 21:21 Olanzapine (ZyPREXA ZYDIS) 5 mg 1X ONCE PO 09/27/20 18:30 09/27/20 18:31 DC 09/27/20 18:30 Divalproex Sodium (Depakote Sprinkles) 125 mg 0900,1700 PO 09/28/20 17:00 10/01/20 16:36 Furosemide (Lasix) 80 mg 1X ONCE PO 09/30/20 15:30 09/30/20 15:31 DC 09/30/20 16:00 Furosemide (Lasix) 80 mg DAILY PO 10/01/20 09:00 10/01/20 08:10 Potassium Chloride (Klor-Con) 20 meq DAILYWBKFT PO 10/01/20 08:00 10/01/20 08:10 Current Medications Medications (Trade) Dose Ordered Sig/Ashvin Route PRN Reason Start Time Stop Time Status Last Admin Dose Admin Furosemide (Lasix) 80 mg DAILY PO 10/01/20 09:00 10/01/20 08:10 Potassium Chloride (Klor-Con) 20 meq DAILYWBKFT PO 10/01/20 08:00 10/01/20 08:10 I have reviewed the current psychotropics carefully including drug interactions. Risk benefit ratio favors no change other than as noted in my dictated progress note. Diagnosis: Problems: (1) Impulse control disorder, unspecified (2) Anxiety disorder, unspecified (3) Dementia, vascular, with depression (4) Dementia, vascular, with delusions (5) Dementia in Alzheimer's disease with depression (6) Dementia in Alzheimer's disease with delusions (7) Dementia of the Alzheimer's type with early onset with behavioral disturbance (8) Major neurocognitive disorder VERENA AGUSTIN MD Oct 01, 2020 21:57
[2020-10-02 05:57] VITALS: BP 110/64
[2020-10-02 08:34] LABS: BASO # 0.1 x10^3/uL (0.0-0.2); BASO % 1 % (0-3); EOS # 0.3 x10^3/uL (0.0-0.7); EOS % 4 % (0-3); HEMATOCRIT 37.1 % (39.0-53.0); HEMOGLOBIN 12.3 g/dL (13.0-17.5); LYMPH # 1.4 x10^3/uL (1.0-4.8); LYMPH % 21 % (24-48); MEAN CORPUSCULAR HEMOGLOBIN 30 pg (25-35); MEAN CORPUSCULAR HGB CONC 33 g/dL (31-37); MEAN CORPUSCULAR VOLUME 90 fL (79-100); MONO # 0.6 x10^3/uL (0.0-1.1); MONO % 10 % (0-9); NEUT # 4.2 x10^3uL (1.8-7.7); NEUT % 64 % (31-73); PLATELET COUNT 240 x10^3/uL (140-400); RED BLOOD COUNT 4.13 x10^6/uL (4.30-5.70); RED CELL DISTRIBUTION WIDTH 13.9 % (11.5-14.5); WHITE BLOOD COUNT 6.6 x10^3/uL (4.0-11.0)
[2020-10-02 08:50] LABS: ALBUMIN 3.3 g/dL (3.4-5.0); ALK PHOS 74 U/L (46-116); ALT (SGPT) 36 U/L (16-63); ANION GAP 11 (6-14); AST (SGOT) 21 U/L (15-37); BLOOD UREA NITROGEN 34 mg/dL (8-26); BUN/CREATININE RATIO 23 (6-20); CALCIUM 8.6 mg/dL (8.5-10.1); CARBON DIOXIDE 26 mmol/L (21-32); CHLORIDE 105 mmol/L (98-107); CREATININE 1.5 mg/dL (0.7-1.3); GFR 45.9; GLUCOSE 91 mg/dL (70-99); POTASSIUM 4.2 mmol/L (3.5-5.1); SODIUM 142 mmol/L (136-145); TOTAL BILIRUBIN 0.8 mg/dL (0.2-1.0); TOTAL PROTEIN 6.7 g/dL (6.4-8.2)
[2020-10-02 08:51] LABS: VAL ACID 18 mcg/mL (50-100)
[2020-10-02] MEDS: OMEGA-3 FATTY ACIDS/FISH OIL 1,000 MG CAPSULE. PO SCH (09:00)
[2020-10-02] MEDS: DIVALPROEX 125 MG CAP.SPRINK PO SCH ×2 (10:09→16:08)
[2020-10-02] MEDS: CETIRIZINE HCL 10 MG TABLET PO SCH (10:09)
[2020-10-02] MEDS: ASPIRIN CHEWABLE 81 MG TABLET. PO SCH (10:09)
[2020-10-02] MEDS: PANTOPRAZOLE 40 MG TABLET. PO SCH (10:10)
[2020-10-02] MEDS: FUROSEMIDE 40 MG TABLET PO SCH (10:10)
[2020-10-02] MEDS: POTASSIUM CHLORIDE 20 MEQ TABLET.ER. PO SCH (10:10)
[2020-10-02] MEDS: MULTIVITAMIN with MINERAL TABLET. PO SCH (10:10)
[2020-10-02 15:39] VITALS: BP 114/74
[2020-10-02] MEDS: TAMSULOSIN 0.4 MG CAP.ER.24H. PO SCH (20:03)
[2020-10-02] MEDS: ATORVASTATIN CALCIUM 20 MG TABLET PO SCH (20:04)
--- NOTE | 2020-10-02 21:56 | PDOC ---
Exam Note: Fercho Note: Please also refer to the separate dictated note~for this date of service dictated separately.~Patient seen individually. Discussed the patient with Nursing staff reviewed the chart.~Reviewed interim history and current functioning. Reviewed vital signs,~Labs/ Radiology~and current medications noted below. Continue current treatment with the changes noted in the dictated addendum note Assessment: Vital Signs/I&O: Vital Signs Date Time Temp Pulse Resp B/P (MAP) Pulse Ox O2 Delivery O2 Flow Rate FiO2 10/02/20 15:39 97.8 80 20 114/74 (87) 97 10/02/20 05:57 Room Air I & O 10/01/20 10/01/20 10/02/20 15:00 23:00 07:00 Intake Total 1160 ml 600 ml Balance 1160 ml 600 ml Labs: Laboratory Tests Test 10/02/20 08:00 White Blood Count 6.6 x10^3/uL (4.0-11.0) Red Blood Count 4.13 x10^6/uL (4.30-5.70) L Hemoglobin 12.3 g/dL (13.0-17.5) L Hematocrit 37.1 % (39.0-53.0) L Mean Corpuscular Volume 90 fL (79-100) Mean Corpuscular Hemoglobin 30 pg (25-35) Mean Corpuscular Hemoglobin Concent 33 g/dL (31-37) Red Cell Distribution Width 13.9 % (11.5-14.5) Platelet Count 240 x10^3/uL (140-400) Neutrophils (%) (Auto) 64 % (31-73) Lymphocytes (%) (Auto) 21 % (24-48) L Monocytes (%) (Auto) 10 % (0-9) H Eosinophils (%) (Auto) 4 % (0-3) H Basophils (%) (Auto) 1 % (0-3) Neutrophils # (Auto) 4.2 x10^3uL (1.8-7.7) Lymphocytes # (Auto) 1.4 x10^3/uL (1.0-4.8) Monocytes # (Auto) 0.6 x10^3/uL (0.0-1.1) Eosinophils # (Auto) 0.3 x10^3/uL (0.0-0.7) Basophils # (Auto) 0.1 x10^3/uL (0.0-0.2) Sodium Level 142 mmol/L (136-145) Potassium Level 4.2 mmol/L (3.5-5.1) Chloride Level 105 mmol/L (98-107) Carbon Dioxide Level 26 mmol/L (21-32) Anion Gap 11 (6-14) Blood Urea Nitrogen 34 mg/dL (8-26) H Creatinine 1.5 mg/dL (0.7-1.3) H Estimated GFR (Cockcroft-Gault) 45.9 BUN/Creatinine Ratio 23 (6-20) H Glucose Level 91 mg/dL (70-99) Calcium Level 8.6 mg/dL (8.5-10.1) Total Bilirubin 0.8 mg/dL (0.2-1.0) Aspartate Amino Transferase (AST) 21 U/L (15-37) Alanine Aminotransferase (ALT) 36 U/L (16-63) Alkaline Phosphatase 74 U/L (46-116) Total Protein 6.7 g/dL (6.4-8.2) Albumin 3.3 g/dL (3.4-5.0) L Albumin/Globulin Ratio 1.0 (1.0-1.7) Valproic Acid Level 18 mcg/mL (50-100) L Valproic Acid Last Dose Date 10/01/20 Valproic Acid Last Dose Time 1700 Current Medications: Meds: Laboratory Tests Test 10/02/20 08:00 White Blood Count 6.6 x10^3/uL Red Blood Count 4.13 x10^6/uL Hemoglobin 12.3 g/dL Hematocrit 37.1 % Mean Corpuscular Volume 90 fL Mean Corpuscular Hemoglobin 30 pg Mean Corpuscular Hemoglobin Concent 33 g/dL Red Cell Distribution Width 13.9 % Platelet Count 240 x10^3/uL Neutrophils (%) (Auto) 64 % Lymphocytes (%) (Auto) 21 % Monocytes (%) (Auto) 10 % Eosinophils (%) (Auto) 4 % Basophils (%) (Auto) 1 % Neutrophils # (Auto) 4.2 x10^3uL Lymphocytes # (Auto) 1.4 x10^3/uL Monocytes # (Auto) 0.6 x10^3/uL Eosinophils # (Auto) 0.3 x10^3/uL Basophils # (Auto) 0.1 x10^3/uL Sodium Level 142 mmol/L Potassium Level 4.2 mmol/L Chloride Level 105 mmol/L Carbon Dioxide Level 26 mmol/L Anion Gap 11 Blood Urea Nitrogen 34 mg/dL Creatinine 1.5 mg/dL Estimated GFR (Cockcroft-Gault) 45.9 BUN/Creatinine Ratio 23 Glucose Level 91 mg/dL Calcium Level 8.6 mg/dL Total Bilirubin 0.8 mg/dL Aspartate Amino Transf (AST/SGOT) 21 U/L Alanine Aminotransferase (ALT/SGPT) 36 U/L Alkaline Phosphatase 74 U/L Total Protein 6.7 g/dL Albumin 3.3 g/dL Albumin/Globulin Ratio 1.0 Valproic Acid (Depakene) Level 18 mcg/mL Valproic Acid Last Dose Date 10/01/20 Valproic Acid Last Dose Time 1700 Current Medications Medications (Trade) Dose Ordered Sig/Ashvin Route PRN Reason Start Time Stop Time Status Last Admin Dose Admin Acetaminophen (Tylenol) 650 mg PRN Q6HRS PRN PO MILD PAIN / TEMP > 100.3'F 08/24/20 18:15 09/04/20 08:58 Multi-Ingredient Ointment (Analgesic [place]) 1 césar PRN QID PRN TP MUSCLE PAIN 08/24/20 18:15 Al Hydroxide/Mg Hydroxide (Mylanta Plus Xs) 15 ml PRN AFTMEALHC PRN PO DYSPEPSIA 08/24/20 18:15 Magnesium Hydroxide (Milk Of Magnesia) 2,400 mg PRN QHS PRN PO CONSTIPATION 08/24/20 18:15 Aspirin (Aspirin Chewable) 81 mg DAILY PO 08/25/20 09:00 10/02/20 10:09 Cetirizine HCl (ZyrTEC) 10 mg DAILY08 PO 08/25/20 08:00 10/02/20 10:09 Donepezil HCl (Aricept) 23 mg QHS PO 08/24/20 21:00 08/28/20 15:38 DC 08/27/20 20:34 Fluoxetine HCl (PROzac) 20 mg DAILY PO 08/25/20 09:00 10/02/20 10:10 Lorazepam (Ativan) 1 mg PRN Q4HRS PRN PO ANXIETY / AGITATION 08/24/20 18:45 09/04/20 16:12 DC 09/04/20 01:29 Atorvastatin Calcium (Lipitor) 40 mg QHS PO 08/24/20 21:00 10/02/20 20:04 Pantoprazole Sodium (Protonix) 40 mg DAILY08 PO 08/25/20 08:00 10/02/20 10:10 Multivitamins/ Calcium (Thera-M Plus) 1 tab DAILY PO 08/25/20 09:00 10/02/20 10:10 Mupirocin (Bactroban) 1 césar BID92 TP 08/25/20 09:00 09/03/20 12:35 DC 09/01/20 14:00 Fish Oil (Fish Oil) 1,000 mg DAILY PO 08/25/20 09:00 10/02/20 09:00 Olanzapine (ZyPREXA ZYDIS) 2.5 mg PRN Q2HR PRN PO PSYCHOSIS 08/24/20 19:45 09/21/20 19:44 Sertraline HCl (Zoloft) 25 mg DAILY PO 08/26/20 09:00 08/28/20 21:00 DC 08/28/20 08:37 Sertraline HCl (Zoloft) 50 mg DAILY PO 08/29/20 09:00 09/06/20 18:40 DC 09/04/20 08:58 Tamsulosin HCl (Flomax) 0.4 mg QHS PO 08/28/20 21:00 10/02/20 20:03 Mupirocin (Bactroban) 1 césar PRN BID PRN TP RASH 09/03/20 12:45 Diphenhydramine HCl (Benadryl) 50 mg 1X ONCE PO 09/04/20 21:00 09/04/20 21:01 DC 09/04/20 21:21 Olanzapine (ZyPREXA ZYDIS) 5 mg 1X ONCE PO 09/27/20 18:30 09/27/20 18:31 DC 09/27/20 18:30 Divalproex Sodium (Depakote Sprinkles) 125 mg 0900,1700 PO 09/28/20 17:00 10/02/20 16:08 Furosemide (Lasix) 80 mg 1X ONCE PO 09/30/20 15:30 09/30/20 15:31 DC 09/30/20 16:00 Furosemide (Lasix) 80 mg DAILY PO 10/01/20 09:00 10/02/20 10:10 Potassium Chloride (Klor-Con) 20 meq DAILYWBKFT PO 10/01/20 08:00 10/02/20 10:10 I have reviewed the current psychotropics carefully including drug interactions. Risk benefit ratio favors no change other than as noted in my dictated progress note. Diagnosis: Problems: (1) Impulse control disorder, unspecified (2) Anxiety disorder, unspecified (3) Dementia, vascular, with depression (4) Dementia, vascular, with delusions (5) Dementia in Alzheimer's disease with depression (6) Dementia in Alzheimer's disease with delusions (7) Dementia of the Alzheimer's type with early onset with behavioral disturbance (8) Major neurocognitive disorder VERENA AGUSTIN MD Oct 02, 2020 21:56
[2020-10-03 05:45] VITALS: BP 123/80
[2020-10-03 07:56] LABS: CALCIUM 8.4 mg/dL (8.5-10.1); CREATININE 1.5 mg/dL (0.7-1.3); GFR 45.9; POTASSIUM 3.9 mmol/L (3.5-5.1)
[2020-10-03] MEDS: POTASSIUM CHLORIDE 20 MEQ TABLET.ER. PO SCH (08:18)
[2020-10-03] MEDS: PANTOPRAZOLE 40 MG TABLET. PO SCH (08:18)
[2020-10-03] MEDS: DIVALPROEX 125 MG CAP.SPRINK PO SCH ×2 (08:18→17:33)
[2020-10-03] MEDS: ASPIRIN CHEWABLE 81 MG TABLET. PO SCH (08:19)
[2020-10-03] MEDS: MULTIVITAMIN with MINERAL TABLET. PO SCH (08:19)
[2020-10-03] MEDS: CETIRIZINE HCL 10 MG TABLET PO SCH (08:19)
[2020-10-03] MEDS: OMEGA-3 FATTY ACIDS/FISH OIL 1,000 MG CAPSULE. PO SCH (08:19)
[2020-10-03] MEDS: FUROSEMIDE 40 MG TABLET PO SCH (08:19)
--- NOTE | 2020-10-03 08:32 | PDOC ---
Exam Note: Fercho Note: This note is a late entry for 10/01/2020 covers elements not covered in my initial note. Subjective: The patient was seen individually in the evening of 10/01/2020 with April ABREU, discussed and reviewed the chart. He slept 7-1/2 hours previous night. The patient remains confused, pleasant, smiling, wandering the hallways, redirectable, not aggressive. After that one incident of getting agitated, impulsive, aggressive in the dining room several days back, the patient has not had another episode of that since then. He is tolerating the addition of Depakote. We will check valproic acid level on the 10/02. Review of Systems: No CV, , pulmonary, ENT system symptoms on review. Re liability poor. Mental Status Exam: The patient is oriented to himself. Insight and judgment, recent and remote memory, attention and concentration fund of knowledge is poor consistent with his diagnoses. Laboratory Data: Reviewed. Impression: Major neurocognitive disorder Alzheimer vascular with delusion, depression, behavioral disturbance. Anxiety disorder unspecified. Impulse control disorder unspecified. Plan: Continue current psychotropics from initial note. He is tolerating the addition of Depakote. We will check valproic acid level on the 10/02. Assessment: Vital Signs/I&O: Vital Signs Date Time Temp Pulse Resp B/P (MAP) Pulse Ox O2 Delivery O2 Flow Rate FiO2 10/03/20 05:45 97.2 78 16 123/80 (94) 98 Room Air I & O 10/02/20 10/02/20 10/03/20 15:00 23:00 07:00 Intake Total 960 ml 480 ml Balance 960 ml 480 ml Labs: Laboratory Tests Test 10/03/20 07:37 Sodium Level 142 mmol/L (136-145) Potassium Level 3.9 mmol/L (3.5-5.1) Chloride Level 105 mmol/L (98-107) Carbon Dioxide Level 28 mmol/L (21-32) Anion Gap 9 (6-14) Blood Urea Nitrogen 32 mg/dL (8-26) H Creatinine 1.5 mg/dL (0.7-1.3) H Estimated GFR (Cockcroft-Gault) 45.9 Glucose Level 98 mg/dL (70-99) Calcium Level 8.4 mg/dL (8.5-10.1) L Current Medications: Meds: Laboratory Tests Test 10/03/20 07:37 Sodium Level 142 mmol/L Potassium Level 3.9 mmol/L Chloride Level 105 mmol/L Carbon Dioxide Level 28 mmol/L Anion Gap 9 Blood Urea Nitrogen 32 mg/dL Creatinine 1.5 mg/dL Estimated GFR (Cockcroft-Gault) 45.9 Glucose Level 98 mg/dL Calcium Level 8.4 mg/dL Current Medications Medications (Trade) Dose Ordered Sig/Ashvin Route PRN Reason Start Time Stop Time Status Last Admin Dose Admin Acetaminophen (Tylenol) 650 mg PRN Q6HRS PRN PO MILD PAIN / TEMP > 100.3'F 08/24/20 18:15 09/04/20 08:58 Multi-Ingredient Ointment (Analgesic [place]) 1 césar PRN QID PRN TP MUSCLE PAIN 08/24/20 18:15 Al Hydroxide/Mg Hydroxide (Mylanta Plus Xs) 15 ml PRN AFTMEALHC PRN PO DYSPEPSIA 08/24/20 18:15 Magnesium Hydroxide (Milk Of Magnesia) 2,400 mg PRN QHS PRN PO CONSTIPATION 08/24/20 18:15 Aspirin (Aspirin Chewable) 81 mg DAILY PO 08/25/20 09:00 10/03/20 08:19 Cetirizine HCl (ZyrTEC) 10 mg DAILY08 PO 08/25/20 08:00 10/03/20 08:19 Donepezil HCl (Aricept) 23 mg QHS PO 08/24/20 21:00 08/28/20 15:38 DC 08/27/20 20:34 Fluoxetine HCl (PROzac) 20 mg DAILY PO 08/25/20 09:00 10/03/20 08:19 Lorazepam (Ativan) 1 mg PRN Q4HRS PRN PO ANXIETY / AGITATION 08/24/20 18:45 09/04/20 16:12 DC 09/04/20 01:29 Atorvastatin Calcium (Lipitor) 40 mg QHS PO 08/24/20 21:00 10/02/20 20:04 Pantoprazole Sodium (Protonix) 40 mg DAILY08 PO 08/25/20 08:00 10/03/20 08:18 Multivitamins/ Calcium (Thera-M Plus) 1 tab DAILY PO 08/25/20 09:00 10/03/20 08:19 Mupirocin (Bactroban) 1 césar BID92 TP 08/25/20 09:00 09/03/20 12:35 DC 09/01/20 14:00 Fish Oil (Fish Oil) 1,000 mg DAILY PO 08/25/20 09:00 10/03/20 08:19 Olanzapine (ZyPREXA ZYDIS) 2.5 mg PRN Q2HR PRN PO PSYCHOSIS 08/24/20 19:45 09/21/20 19:44 Sertraline HCl (Zoloft) 25 mg DAILY PO 08/26/20 09:00 08/28/20 21:00 DC 08/28/20 08:37 Sertraline HCl (Zoloft) 50 mg DAILY PO 08/29/20 09:00 09/06/20 18:40 DC 09/04/20 08:58 Tamsulosin HCl (Flomax) 0.4 mg QHS PO 08/28/20 21:00 10/02/20 20:03 Mupirocin (Bactroban) 1 césar PRN BID PRN TP RASH 09/03/20 12:45 Diphenhydramine HCl (Benadryl) 50 mg 1X ONCE PO 09/04/20 21:00 09/04/20 21:01 DC 09/04/20 21:21 Olanzapine (ZyPREXA ZYDIS) 5 mg 1X ONCE PO 09/27/20 18:30 09/27/20 18:31 DC 09/27/20 18:30 Divalproex Sodium (Depakote Sprinkles) 125 mg 0900,1700 PO 09/28/20 17:00 10/03/20 08:18 Furosemide (Lasix) 80 mg 1X ONCE PO 09/30/20 15:30 09/30/20 15:31 DC 09/30/20 16:00 Furosemide (Lasix) 80 mg DAILY PO 10/01/20 09:00 10/03/20 08:19 Potassium Chloride (Klor-Con) 20 meq DAILYWBKFT PO 10/01/20 08:00 10/03/20 08:18 I have reviewed the current psychotropics carefully including drug interactions. Risk benefit ratio favors no change other than as noted in my dictated progress note. Diagnosis: Problems: (1) Impulse control disorder, unspecified (2) Anxiety disorder, unspecified (3) Dementia, vascular, with depression (4) Dementia, vascular, with delusions (5) Dementia in Alzheimer's disease with depression (6) Dementia in Alzheimer's disease with delusions (7) Dementia of the Alzheimer's type with early onset with behavioral disturbance (8) Major neurocognitive disorder VERENA AGUSTIN MD Oct 03, 2020 08:32
--- NOTE | 2020-10-03 09:01 | PDOC ---
Exam Note: Fercho Note: This note is a late entry for 10/02/2020 covers elements not covered in my initial note. Subjective: The patient was seen individually in the evening of 10/02/2020 with Tala ABREU, discussed and reviewed the chart. He slept 6 hours previous night. The patient remains confused, calm. Valproic acid level is 18, subtherapeutic but still clinically adequate since he is doing well and there is no real clinical justification to increase the Depakote. Review of Systems: No CV, , pulmonary, ENT system symptoms on review. Reliability poor. Mental Status Exam: The patient is oriented to himself. He is pleasant, smiling, whistling earlier and much of the day per nursing staff. Insight and judgment, recent and remote memory, attention and concentration fund of knowledge is poor consistent with his diagnoses. Laboratory Data: Reviewed. Impression: Major neurocognitive disorder Alzheimer vascular with delusion, depression, behavioral disturbance. Anxiety disorder unspecified. Impulse control disorder unspecified. Plan: Continue current psychotropics from initial note. Assessment: Vital Signs/I&O: Vital Signs Date Time Temp Pulse Resp B/P (MAP) Pulse Ox O2 Delivery O2 Flow Rate FiO2 10/03/20 05:45 97.2 78 16 123/80 (94) 98 Room Air I & O 10/02/20 10/02/20 10/03/20 15:00 23:00 07:00 Intake Total 960 ml 480 ml Balance 960 ml 480 ml Labs: Laboratory Tests Test 10/03/20 07:37 Sodium Level 142 mmol/L (136-145) Potassium Level 3.9 mmol/L (3.5-5.1) Chloride Level 105 mmol/L (98-107) Carbon Dioxide Level 28 mmol/L (21-32) Anion Gap 9 (6-14) Blood Urea Nitrogen 32 mg/dL (8-26) H Creatinine 1.5 mg/dL (0.7-1.3) H Estimated GFR (Cockcroft-Gault) 45.9 Glucose Level 98 mg/dL (70-99) Calcium Level 8.4 mg/dL (8.5-10.1) L Current Medications: Meds: Laboratory Tests Test 10/03/20 07:37 Sodium Level 142 mmol/L Potassium Level 3.9 mmol/L Chloride Level 105 mmol/L Carbon Dioxide Level 28 mmol/L Anion Gap 9 Blood Urea Nitrogen 32 mg/dL Creatinine 1.5 mg/dL Estimated GFR (Cockcroft-Gault) 45.9 Glucose Level 98 mg/dL Calcium Level 8.4 mg/dL Current Medications Medications (Trade) Dose Ordered Sig/Ashvin Route PRN Reason Start Time Stop Time Status Last Admin Dose Admin Acetaminophen (Tylenol) 650 mg PRN Q6HRS PRN PO MILD PAIN / TEMP > 100.3'F 08/24/20 18:15 09/04/20 08:58 Multi-Ingredient Ointment (Analgesic [place]) 1 césar PRN QID PRN TP MUSCLE PAIN 08/24/20 18:15 Al Hydroxide/Mg Hydroxide (Mylanta Plus Xs) 15 ml PRN AFTMEALHC PRN PO DYSPEPSIA 08/24/20 18:15 Magnesium Hydroxide (Milk Of Magnesia) 2,400 mg PRN QHS PRN PO CONSTIPATION 08/24/20 18:15 Aspirin (Aspirin Chewable) 81 mg DAILY PO 08/25/20 09:00 10/03/20 08:19 Cetirizine HCl (ZyrTEC) 10 mg DAILY08 PO 08/25/20 08:00 10/03/20 08:19 Donepezil HCl (Aricept) 23 mg QHS PO 08/24/20 21:00 08/28/20 15:38 DC 08/27/20 20:34 Fluoxetine HCl (PROzac) 20 mg DAILY PO 08/25/20 09:00 10/03/20 08:19 Lorazepam (Ativan) 1 mg PRN Q4HRS PRN PO ANXIETY / AGITATION 08/24/20 18:45 09/04/20 16:12 DC 09/04/20 01:29 Atorvastatin Calcium (Lipitor) 40 mg QHS PO 08/24/20 21:00 10/02/20 20:04 Pantoprazole Sodium (Protonix) 40 mg DAILY08 PO 08/25/20 08:00 10/03/20 08:18 Multivitamins/ Calcium (Thera-M Plus) 1 tab DAILY PO 08/25/20 09:00 10/03/20 08:19 Mupirocin (Bactroban) 1 césar BID92 TP 08/25/20 09:00 09/03/20 12:35 DC 09/01/20 14:00 Fish Oil (Fish Oil) 1,000 mg DAILY PO 08/25/20 09:00 10/03/20 08:19 Olanzapine (ZyPREXA ZYDIS) 2.5 mg PRN Q2HR PRN PO PSYCHOSIS 08/24/20 19:45 09/21/20 19:44 Sertraline HCl (Zoloft) 25 mg DAILY PO 08/26/20 09:00 08/28/20 21:00 DC 08/28/20 08:37 Sertraline HCl (Zoloft) 50 mg DAILY PO 08/29/20 09:00 09/06/20 18:40 DC 09/04/20 08:58 Tamsulosin HCl (Flomax) 0.4 mg QHS PO 08/28/20 21:00 10/02/20 20:03 Mupirocin (Bactroban) 1 césar PRN BID PRN TP RASH 09/03/20 12:45 Diphenhydramine HCl (Benadryl) 50 mg 1X ONCE PO 09/04/20 21:00 09/04/20 21:01 DC 09/04/20 21:21 Olanzapine (ZyPREXA ZYDIS) 5 mg 1X ONCE PO 09/27/20 18:30 09/27/20 18:31 DC 09/27/20 18:30 Divalproex Sodium (Depakote Sprinkles) 125 mg 0900,1700 PO 09/28/20 17:00 10/03/20 08:18 Furosemide (Lasix) 80 mg 1X ONCE PO 09/30/20 15:30 09/30/20 15:31 DC 09/30/20 16:00 Furosemide (Lasix) 80 mg DAILY PO 10/01/20 09:00 10/03/20 08:19 Potassium Chloride (Klor-Con) 20 meq DAILYWBKFT PO 10/01/20 08:00 10/03/20 08:18 I have reviewed the current psychotropics carefully including drug interactions. Risk benefit ratio favors no change other than as noted in my dictated progress note. Diagnosis: Problems: (1) Impulse control disorder, unspecified (2) Anxiety disorder, unspecified (3) Dementia, vascular, with depression (4) Dementia, vascular, with delusions (5) Dementia in Alzheimer's disease with depression (6) Dementia in Alzheimer's disease with delusions (7) Dementia of the Alzheimer's type with early onset with behavioral disturbance (8) Major neurocognitive disorder VERENA AGUSTIN MD Oct 03, 2020 09:01
[2020-10-03 15:56] VITALS: BP 99/56
[2020-10-03] MEDS: TAMSULOSIN 0.4 MG CAP.ER.24H. PO SCH (20:14)
[2020-10-03] MEDS: ATORVASTATIN CALCIUM 20 MG TABLET PO SCH (20:14)
--- NOTE | 2020-10-03 22:01 | PDOC ---
Exam Note: Fercho Note: Please also refer to the separate dictated note~for this date of service dictated separately.~Patient seen individually. Discussed the patient with Nursing staff reviewed the chart.~Reviewed interim history and current functioning. Reviewed vital signs,~Labs/ Radiology~and current medications noted below. Continue current treatment with the changes noted in the dictated addendum note Assessment: Vital Signs/I&O: Vital Signs Date Time Temp Pulse Resp B/P (MAP) Pulse Ox O2 Delivery O2 Flow Rate FiO2 10/03/20 15:56 97.7 61 19 99/56 (70) 98 10/03/20 05:45 Room Air I & O 10/02/20 10/02/20 10/03/20 15:00 23:00 07:00 Intake Total 960 ml 480 ml Balance 960 ml 480 ml Labs: Laboratory Tests Test 10/03/20 07:37 Sodium Level 142 mmol/L (136-145) Potassium Level 3.9 mmol/L (3.5-5.1) Chloride Level 105 mmol/L (98-107) Carbon Dioxide Level 28 mmol/L (21-32) Anion Gap 9 (6-14) Blood Urea Nitrogen 32 mg/dL (8-26) H Creatinine 1.5 mg/dL (0.7-1.3) H Estimated GFR (Cockcroft-Gault) 45.9 Glucose Level 98 mg/dL (70-99) Calcium Level 8.4 mg/dL (8.5-10.1) L Current Medications: Meds: Laboratory Tests Test 10/03/20 07:37 Sodium Level 142 mmol/L Potassium Level 3.9 mmol/L Chloride Level 105 mmol/L Carbon Dioxide Level 28 mmol/L Anion Gap 9 Blood Urea Nitrogen 32 mg/dL Creatinine 1.5 mg/dL Estimated GFR (Cockcroft-Gault) 45.9 Glucose Level 98 mg/dL Calcium Level 8.4 mg/dL Current Medications Medications (Trade) Dose Ordered Sig/Ashvin Route PRN Reason Start Time Stop Time Status Last Admin Dose Admin Acetaminophen (Tylenol) 650 mg PRN Q6HRS PRN PO MILD PAIN / TEMP > 100.3'F 08/24/20 18:15 09/04/20 08:58 Multi-Ingredient Ointment (Analgesic [place]) 1 césar PRN QID PRN TP MUSCLE PAIN 08/24/20 18:15 Al Hydroxide/Mg Hydroxide (Mylanta Plus Xs) 15 ml PRN AFTMEALHC PRN PO DYSPEPSIA 08/24/20 18:15 Magnesium Hydroxide (Milk Of Magnesia) 2,400 mg PRN QHS PRN PO CONSTIPATION 08/24/20 18:15 Aspirin (Aspirin Chewable) 81 mg DAILY PO 08/25/20 09:00 10/03/20 08:19 Cetirizine HCl (ZyrTEC) 10 mg DAILY08 PO 08/25/20 08:00 10/03/20 08:19 Donepezil HCl (Aricept) 23 mg QHS PO 08/24/20 21:00 08/28/20 15:38 DC 08/27/20 20:34 Fluoxetine HCl (PROzac) 20 mg DAILY PO 08/25/20 09:00 10/03/20 08:19 Lorazepam (Ativan) 1 mg PRN Q4HRS PRN PO ANXIETY / AGITATION 08/24/20 18:45 09/04/20 16:12 DC 09/04/20 01:29 Atorvastatin Calcium (Lipitor) 40 mg QHS PO 08/24/20 21:00 10/03/20 20:14 Pantoprazole Sodium (Protonix) 40 mg DAILY08 PO 08/25/20 08:00 10/03/20 08:18 Multivitamins/ Calcium (Thera-M Plus) 1 tab DAILY PO 08/25/20 09:00 10/03/20 08:19 Mupirocin (Bactroban) 1 césar BID92 TP 08/25/20 09:00 09/03/20 12:35 DC 09/01/20 14:00 Fish Oil (Fish Oil) 1,000 mg DAILY PO 08/25/20 09:00 10/03/20 08:19 Olanzapine (ZyPREXA ZYDIS) 2.5 mg PRN Q2HR PRN PO PSYCHOSIS 08/24/20 19:45 09/21/20 19:44 Sertraline HCl (Zoloft) 25 mg DAILY PO 08/26/20 09:00 08/28/20 21:00 DC 08/28/20 08:37 Sertraline HCl (Zoloft) 50 mg DAILY PO 08/29/20 09:00 09/06/20 18:40 DC 09/04/20 08:58 Tamsulosin HCl (Flomax) 0.4 mg QHS PO 08/28/20 21:00 10/03/20 20:14 Mupirocin (Bactroban) 1 césar PRN BID PRN TP RASH 09/03/20 12:45 Diphenhydramine HCl (Benadryl) 50 mg 1X ONCE PO 09/04/20 21:00 09/04/20 21:01 DC 09/04/20 21:21 Olanzapine (ZyPREXA ZYDIS) 5 mg 1X ONCE PO 09/27/20 18:30 09/27/20 18:31 DC 09/27/20 18:30 Divalproex Sodium (Depakote Sprinkles) 125 mg 0900,1700 PO 09/28/20 17:00 10/03/20 17:33 Furosemide (Lasix) 80 mg 1X ONCE PO 09/30/20 15:30 09/30/20 15:31 DC 09/30/20 16:00 Furosemide (Lasix) 80 mg DAILY PO 10/01/20 09:00 10/03/20 08:19 Potassium Chloride (Klor-Con) 20 meq DAILYWBKFT PO 10/01/20 08:00 10/03/20 08:18 I have reviewed the current psychotropics carefully including drug interactions. Risk benefit ratio favors no change other than as noted in my dictated progress note. Diagnosis: Problems: (1) Impulse control disorder, unspecified (2) Anxiety disorder, unspecified (3) Dementia, vascular, with depression (4) Dementia, vascular, with delusions (5) Dementia in Alzheimer's disease with depression (6) Dementia in Alzheimer's disease with delusions (7) Dementia of the Alzheimer's type with early onset with behavioral disturbance (8) Major neurocognitive disorder VERENA AGUSTIN MD Oct 03, 2020 22:01
[2020-10-04 05:45] VITALS: BP 125/77
--- NOTE | 2020-10-04 07:33 | PDOC ---
Exam Note: Fercho Note: This note is a late entry for 10/03/2020 covers elements not covered in my initial note. Subjective: The patient was seen individually in the evening of 10/03/2020 with Tala ABREU, discussed and reviewed the chart. He slept 4-3/4 hours previous night. The patient remains confused, pleasant, wandering up and down the hallway, redirectable, not aggressive. Review of Systems: No CV, , pulmonary, ENT system symptoms on review. Mental Status Exam: The patient is oriented to himself. Insight and judgment, recent and remote memory, attention and concentration fund of knowledge is poor consistent with his diagnoses. Laboratory Data: Reviewed. Impression: Major neurocognitive disorder Alzheimer vascular with delusion, depression, behavioral disturbance. Anxiety disorder unspecified. Impulse control disorder unspecified. Plan: Continue current psychotropics from initial note. Assessment: Vital Signs/I&O: Vital Signs Date Time Temp Pulse Resp B/P (MAP) Pulse Ox O2 Delivery O2 Flow Rate FiO2 10/04/20 05:45 97.8 89 18 125/77 (93) 98 Room Air I & O 10/03/20 10/03/20 10/04/20 15:00 23:00 07:00 Intake Total 720 ml 240 ml 120 ml Balance 720 ml 240 ml 120 ml Labs: Laboratory Tests Test 10/03/20 07:37 Sodium Level 142 mmol/L (136-145) Potassium Level 3.9 mmol/L (3.5-5.1) Chloride Level 105 mmol/L (98-107) Carbon Dioxide Level 28 mmol/L (21-32) Anion Gap 9 (6-14) Blood Urea Nitrogen 32 mg/dL (8-26) H Creatinine 1.5 mg/dL (0.7-1.3) H Estimated GFR (Cockcroft-Gault) 45.9 Glucose Level 98 mg/dL (70-99) Calcium Level 8.4 mg/dL (8.5-10.1) L Current Medications: Meds: Laboratory Tests Test 10/03/20 07:37 Sodium Level 142 mmol/L Potassium Level 3.9 mmol/L Chloride Level 105 mmol/L Carbon Dioxide Level 28 mmol/L Anion Gap 9 Blood Urea Nitrogen 32 mg/dL Creatinine 1.5 mg/dL Estimated GFR (Cockcroft-Gault) 45.9 Glucose Level 98 mg/dL Calcium Level 8.4 mg/dL Current Medications Medications (Trade) Dose Ordered Sig/Ashvin Route PRN Reason Start Time Stop Time Status Last Admin Dose Admin Acetaminophen (Tylenol) 650 mg PRN Q6HRS PRN PO MILD PAIN / TEMP > 100.3'F 08/24/20 18:15 09/04/20 08:58 Multi-Ingredient Ointment (Analgesic [place]) 1 césar PRN QID PRN TP MUSCLE PAIN 08/24/20 18:15 Al Hydroxide/Mg Hydroxide (Mylanta Plus Xs) 15 ml PRN AFTMEALHC PRN PO DYSPEPSIA 08/24/20 18:15 Magnesium Hydroxide (Milk Of Magnesia) 2,400 mg PRN QHS PRN PO CONSTIPATION 08/24/20 18:15 Aspirin (Aspirin Chewable) 81 mg DAILY PO 08/25/20 09:00 10/03/20 08:19 Cetirizine HCl (ZyrTEC) 10 mg DAILY08 PO 08/25/20 08:00 10/03/20 08:19 Donepezil HCl (Aricept) 23 mg QHS PO 08/24/20 21:00 08/28/20 15:38 DC 08/27/20 20:34 Fluoxetine HCl (PROzac) 20 mg DAILY PO 08/25/20 09:00 10/03/20 08:19 Lorazepam (Ativan) 1 mg PRN Q4HRS PRN PO ANXIETY / AGITATION 08/24/20 18:45 09/04/20 16:12 DC 09/04/20 01:29 Atorvastatin Calcium (Lipitor) 40 mg QHS PO 08/24/20 21:00 10/03/20 20:14 Pantoprazole Sodium (Protonix) 40 mg DAILY08 PO 08/25/20 08:00 10/03/20 08:18 Multivitamins/ Calcium (Thera-M Plus) 1 tab DAILY PO 08/25/20 09:00 10/03/20 08:19 Mupirocin (Bactroban) 1 césar BID92 TP 08/25/20 09:00 09/03/20 12:35 DC 09/01/20 14:00 Fish Oil (Fish Oil) 1,000 mg DAILY PO 08/25/20 09:00 10/03/20 08:19 Olanzapine (ZyPREXA ZYDIS) 2.5 mg PRN Q2HR PRN PO PSYCHOSIS 08/24/20 19:45 09/21/20 19:44 Sertraline HCl (Zoloft) 25 mg DAILY PO 08/26/20 09:00 08/28/20 21:00 DC 08/28/20 08:37 Sertraline HCl (Zoloft) 50 mg DAILY PO 08/29/20 09:00 09/06/20 18:40 DC 09/04/20 08:58 Tamsulosin HCl (Flomax) 0.4 mg QHS PO 08/28/20 21:00 10/03/20 20:14 Mupirocin (Bactroban) 1 césar PRN BID PRN TP RASH 09/03/20 12:45 Diphenhydramine HCl (Benadryl) 50 mg 1X ONCE PO 09/04/20 21:00 09/04/20 21:01 DC 09/04/20 21:21 Olanzapine (ZyPREXA ZYDIS) 5 mg 1X ONCE PO 09/27/20 18:30 09/27/20 18:31 DC 09/27/20 18:30 Divalproex Sodium (Depakote Sprinkles) 125 mg 0900,1700 PO 09/28/20 17:00 10/03/20 17:33 Furosemide (Lasix) 80 mg 1X ONCE PO 09/30/20 15:30 09/30/20 15:31 DC 09/30/20 16:00 Furosemide (Lasix) 80 mg DAILY PO 10/01/20 09:00 10/03/20 08:19 Potassium Chloride (Klor-Con) 20 meq DAILYWBKFT PO 10/01/20 08:00 10/03/20 08:18 I have reviewed the current psychotropics carefully including drug interactions. Risk benefit ratio favors no change other than as noted in my dictated progress note. Diagnosis: Problems: (1) Impulse control disorder, unspecified (2) Anxiety disorder, unspecified (3) Dementia, vascular, with depression (4) Dementia, vascular, with delusions (5) Dementia in Alzheimer's disease with depression (6) Dementia in Alzheimer's disease with delusions (7) Dementia of the Alzheimer's type with early onset with behavioral disturbance (8) Major neurocognitive disorder VERENA AGUSTIN MD Oct 04, 2020 07:33
[2020-10-04] MEDS: CETIRIZINE HCL 10 MG TABLET PO SCH (08:38)
[2020-10-04] MEDS: ASPIRIN CHEWABLE 81 MG TABLET. PO SCH (08:38)
[2020-10-04] MEDS: PANTOPRAZOLE 40 MG TABLET. PO SCH (08:38)
[2020-10-04] MEDS: MULTIVITAMIN with MINERAL TABLET. PO SCH (08:38)
[2020-10-04] MEDS: POTASSIUM CHLORIDE 20 MEQ TABLET.ER. PO SCH (08:38)
[2020-10-04] MEDS: OMEGA-3 FATTY ACIDS/FISH OIL 1,000 MG CAPSULE. PO SCH (08:38)
[2020-10-04] MEDS: FUROSEMIDE 40 MG TABLET PO SCH (08:39)
[2020-10-04] MEDS: DIVALPROEX 125 MG CAP.SPRINK PO SCH ×2 (08:39→17:15)
[2020-10-04 15:37] VITALS: BP 106/66
[2020-10-04] MEDS: ATORVASTATIN CALCIUM 20 MG TABLET PO SCH (19:50)
[2020-10-04] MEDS: TAMSULOSIN 0.4 MG CAP.ER.24H. PO SCH (19:50)
--- NOTE | 2020-10-04 22:08 | PDOC ---
Exam Note: Fercho Note: Please also refer to the separate dictated note~for this date of service dictated separately.~Patient seen individually. Discussed the patient with Nursing staff reviewed the chart.~Reviewed interim history and current functioning. Reviewed vital signs,~Labs/ Radiology~and current medications noted below. Continue current treatment with the changes noted in the dictated addendum note Assessment: Vital Signs/I&O: Vital Signs Date Time Temp Pulse Resp B/P (MAP) Pulse Ox O2 Delivery O2 Flow Rate FiO2 10/04/20 15:37 98.0 73 16 106/66 (79) 99 10/04/20 05:45 Room Air I & O 10/03/20 10/03/20 10/04/20 15:00 23:00 07:00 Intake Total 720 ml 240 ml 120 ml Balance 720 ml 240 ml 120 ml Current Medications: Meds: Current Medications Medications (Trade) Dose Ordered Sig/Ashvin Route PRN Reason Start Time Stop Time Status Last Admin Dose Admin Acetaminophen (Tylenol) 650 mg PRN Q6HRS PRN PO MILD PAIN / TEMP > 100.3'F 08/24/20 18:15 09/04/20 08:58 Multi-Ingredient Ointment (Analgesic [place]) 1 césar PRN QID PRN TP MUSCLE PAIN 08/24/20 18:15 Al Hydroxide/Mg Hydroxide (Mylanta Plus Xs) 15 ml PRN AFTMEALHC PRN PO DYSPEPSIA 08/24/20 18:15 Magnesium Hydroxide (Milk Of Magnesia) 2,400 mg PRN QHS PRN PO CONSTIPATION 08/24/20 18:15 Aspirin (Aspirin Chewable) 81 mg DAILY PO 08/25/20 09:00 10/04/20 08:38 Cetirizine HCl (ZyrTEC) 10 mg DAILY08 PO 08/25/20 08:00 10/04/20 08:38 Donepezil HCl (Aricept) 23 mg QHS PO 08/24/20 21:00 08/28/20 15:38 DC 08/27/20 20:34 Fluoxetine HCl (PROzac) 20 mg DAILY PO 08/25/20 09:00 10/04/20 08:38 Lorazepam (Ativan) 1 mg PRN Q4HRS PRN PO ANXIETY / AGITATION 08/24/20 18:45 09/04/20 16:12 DC 09/04/20 01:29 Atorvastatin Calcium (Lipitor) 40 mg QHS PO 08/24/20 21:00 10/04/20 19:50 Pantoprazole Sodium (Protonix) 40 mg DAILY08 PO 08/25/20 08:00 10/04/20 08:38 Multivitamins/ Calcium (Thera-M Plus) 1 tab DAILY PO 08/25/20 09:00 10/04/20 08:38 Mupirocin (Bactroban) 1 césar BID92 TP 08/25/20 09:00 09/03/20 12:35 DC 09/01/20 14:00 Fish Oil (Fish Oil) 1,000 mg DAILY PO 08/25/20 09:00 10/04/20 08:38 Olanzapine (ZyPREXA ZYDIS) 2.5 mg PRN Q2HR PRN PO PSYCHOSIS 08/24/20 19:45 09/21/20 19:44 Sertraline HCl (Zoloft) 25 mg DAILY PO 08/26/20 09:00 08/28/20 21:00 DC 08/28/20 08:37 Sertraline HCl (Zoloft) 50 mg DAILY PO 08/29/20 09:00 09/06/20 18:40 DC 09/04/20 08:58 Tamsulosin HCl (Flomax) 0.4 mg QHS PO 08/28/20 21:00 10/04/20 19:50 Mupirocin (Bactroban) 1 césar PRN BID PRN TP RASH 09/03/20 12:45 Diphenhydramine HCl (Benadryl) 50 mg 1X ONCE PO 09/04/20 21:00 09/04/20 21:01 DC 09/04/20 21:21 Olanzapine (ZyPREXA ZYDIS) 5 mg 1X ONCE PO 09/27/20 18:30 09/27/20 18:31 DC 09/27/20 18:30 Divalproex Sodium (Depakote Sprinkles) 125 mg 0900,1700 PO 09/28/20 17:00 10/04/20 17:15 Furosemide (Lasix) 80 mg 1X ONCE PO 09/30/20 15:30 09/30/20 15:31 DC 09/30/20 16:00 Furosemide (Lasix) 80 mg DAILY PO 10/01/20 09:00 10/04/20 08:39 Potassium Chloride (Klor-Con) 20 meq DAILYWBKFT PO 10/01/20 08:00 10/04/20 08:38 I have reviewed the current psychotropics carefully including drug interactions. Risk benefit ratio favors no change other than as noted in my dictated progress note. Diagnosis: Problems: (1) Impulse control disorder, unspecified (2) Anxiety disorder, unspecified (3) Dementia, vascular, with depression (4) Dementia, vascular, with delusions (5) Dementia in Alzheimer's disease with depression (6) Dementia in Alzheimer's disease with delusions (7) Dementia of the Alzheimer's type with early onset with behavioral disturbance (8) Major neurocognitive disorder VERENA AGUSTIN MD Oct 04, 2020 22:08
--- NOTE | 2020-10-04 23:24 | PDOC ---
Exam Note: Fercho Note: This note covers elements not covered in my initial note. Subjective: The patient was seen individually in the evening of 10/04/2020 with Brittany ABREU, discussed and reviewed the chart. He slept 5-3/4 hours previous night. Overall the patient heard to be whistling and he has not been agitated or aggressive. Social service staff are actively finding placement and as soon as that is obtained he would be transitioned there. Review of Systems: No CV, , pulmonary, ENT system symptoms on review. Mental Status Exam: The patient is oriented to himself. Insight and judgment, recent and remote memory, attention and concentration fund of knowledge is poor consistent with his diagnoses. Laboratory Data: Reviewed. Impression: Major neurocognitive disorder Alzheimer vascular with delusion, depression, behavioral disturbance. Anxiety disorder unspecified. Impulse control disorder unspecified. Plan: Continue current psychotropics from initial note. Assessment: Vital Signs/I&O: Vital Signs Date Time Temp Pulse Resp B/P (MAP) Pulse Ox O2 Delivery O2 Flow Rate FiO2 10/04/20 15:37 98.0 73 16 106/66 (79) 99 10/04/20 05:45 Room Air I & O 10/03/20 10/03/20 10/04/20 15:00 23:00 07:00 Intake Total 720 ml 240 ml 120 ml Balance 720 ml 240 ml 120 ml Current Medications: Meds: Current Medications Medications (Trade) Dose Ordered Sig/Ashvin Route PRN Reason Start Time Stop Time Status Last Admin Dose Admin Acetaminophen (Tylenol) 650 mg PRN Q6HRS PRN PO MILD PAIN / TEMP > 100.3'F 08/24/20 18:15 09/04/20 08:58 Multi-Ingredient Ointment (Analgesic [place]) 1 césar PRN QID PRN TP MUSCLE PAIN 08/24/20 18:15 Al Hydroxide/Mg Hydroxide (Mylanta Plus Xs) 15 ml PRN AFTMEALHC PRN PO DYSPEPSIA 08/24/20 18:15 Magnesium Hydroxide (Milk Of Magnesia) 2,400 mg PRN QHS PRN PO CONSTIPATION 08/24/20 18:15 Aspirin (Aspirin Chewable) 81 mg DAILY PO 08/25/20 09:00 10/04/20 08:38 Cetirizine HCl (ZyrTEC) 10 mg DAILY08 PO 08/25/20 08:00 10/04/20 08:38 Donepezil HCl (Aricept) 23 mg QHS PO 08/24/20 21:00 08/28/20 15:38 DC 08/27/20 20:34 Fluoxetine HCl (PROzac) 20 mg DAILY PO 08/25/20 09:00 10/04/20 08:38 Lorazepam (Ativan) 1 mg PRN Q4HRS PRN PO ANXIETY / AGITATION 08/24/20 18:45 09/04/20 16:12 DC 09/04/20 01:29 Atorvastatin Calcium (Lipitor) 40 mg QHS PO 08/24/20 21:00 10/04/20 19:50 Pantoprazole Sodium (Protonix) 40 mg DAILY08 PO 08/25/20 08:00 10/04/20 08:38 Multivitamins/ Calcium (Thera-M Plus) 1 tab DAILY PO 08/25/20 09:00 10/04/20 08:38 Mupirocin (Bactroban) 1 césar BID92 TP 08/25/20 09:00 09/03/20 12:35 DC 09/01/20 14:00 Fish Oil (Fish Oil) 1,000 mg DAILY PO 08/25/20 09:00 10/04/20 08:38 Olanzapine (ZyPREXA ZYDIS) 2.5 mg PRN Q2HR PRN PO PSYCHOSIS 08/24/20 19:45 09/21/20 19:44 Sertraline HCl (Zoloft) 25 mg DAILY PO 08/26/20 09:00 08/28/20 21:00 DC 08/28/20 08:37 Sertraline HCl (Zoloft) 50 mg DAILY PO 08/29/20 09:00 09/06/20 18:40 DC 09/04/20 08:58 Tamsulosin HCl (Flomax) 0.4 mg QHS PO 08/28/20 21:00 10/04/20 19:50 Mupirocin (Bactroban) 1 césar PRN BID PRN TP RASH 09/03/20 12:45 Diphenhydramine HCl (Benadryl) 50 mg 1X ONCE PO 09/04/20 21:00 09/04/20 21:01 DC 09/04/20 21:21 Olanzapine (ZyPREXA ZYDIS) mg 1X ONCE PO 09/27/20 18:30 09/27/20 18:31 DC 09/27/20 18:30 Divalproex Sodium (Depakote Sprinkles) 125 mg 0900,1700 PO 09/28/20 17:00 10/04/20 17:15 Furosemide (Lasix) 80 mg 1X ONCE PO 09/30/20 15:30 09/30/20 15:31 DC 09/30/20 16:00 Furosemide (Lasix) 80 mg DAILY PO 10/01/20 09:00 10/04/20 08:39 Potassium Chloride (Klor-Con) 20 meq DAILYWBKFT PO 10/01/20 08:00 10/04/20 08:38 I have reviewed the current psychotropics carefully including drug interactions. Risk benefit ratio favors no change other than as noted in my dictated progress note. Diagnosis: Problems: (1) Impulse control disorder, unspecified (2) Anxiety disorder, unspecified (3) Dementia, vascular, with depression (4) Dementia, vascular, with delusions (5) Dementia in Alzheimer's disease with depression (6) Dementia in Alzheimer's disease with delusions (7) Dementia of the Alzheimer's type with early onset with behavioral disturbance (8) Major neurocognitive disorder VERENA AGUSTIN MD Oct 04, 2020 23:23
[2020-10-05 05:40] VITALS: BP 96/62
[2020-10-05] MEDS: MULTIVITAMIN with MINERAL TABLET. PO SCH (09:25)
[2020-10-05] MEDS: CETIRIZINE HCL 10 MG TABLET PO SCH (09:25)
[2020-10-05] MEDS: DIVALPROEX 125 MG CAP.SPRINK PO SCH ×2 (09:25→17:21)
[2020-10-05] MEDS: ASPIRIN CHEWABLE 81 MG TABLET. PO SCH (09:25)
[2020-10-05] MEDS: POTASSIUM CHLORIDE 20 MEQ TABLET.ER. PO SCH (09:26)
[2020-10-05] MEDS: OMEGA-3 FATTY ACIDS/FISH OIL 1,000 MG CAPSULE. PO SCH (09:26)
[2020-10-05] MEDS: FUROSEMIDE 40 MG TABLET PO SCH (09:26)
[2020-10-05] MEDS: PANTOPRAZOLE 40 MG TABLET. PO SCH (09:26)
[2020-10-05 15:40] VITALS: BP 101/66
[2020-10-05] MEDS: TAMSULOSIN 0.4 MG CAP.ER.24H. PO SCH (19:50)
[2020-10-05] MEDS: ATORVASTATIN CALCIUM 20 MG TABLET PO SCH (19:50)
--- NOTE | 2020-10-05 22:00 | PDOC ---
Exam Note: Fercho Note: Please also refer to the separate dictated note~for this date of service dictated separately.~Patient seen individually. Discussed the patient with Nursing staff reviewed the chart.~Reviewed interim history and current functioning. Reviewed vital signs,~Labs/ Radiology~and current medications noted below. Continue current treatment with the changes noted in the dictated addendum note Assessment: Vital Signs/I&O: Vital Signs Date Time Temp Pulse Resp B/P (MAP) Pulse Ox O2 Delivery O2 Flow Rate FiO2 10/05/20 15:40 98.4 79 16 101/66 (78) 97 10/04/20 05:45 Room Air I & O 10/04/20 10/04/20 10/05/20 15:00 23:00 07:00 Intake Total 720 ml 360 ml Balance 720 ml 360 ml Current Medications: Meds: Current Medications Medications (Trade) Dose Ordered Sig/Ashvin Route PRN Reason Start Time Stop Time Status Last Admin Dose Admin Acetaminophen (Tylenol) 650 mg PRN Q6HRS PRN PO MILD PAIN / TEMP > 100.3'F 08/24/20 18:15 09/04/20 08:58 Multi-Ingredient Ointment (Analgesic [place]) 1 césar PRN QID PRN TP MUSCLE PAIN 08/24/20 18:15 Al Hydroxide/Mg Hydroxide (Mylanta Plus Xs) 15 ml PRN AFTMEALHC PRN PO DYSPEPSIA 08/24/20 18:15 Magnesium Hydroxide (Milk Of Magnesia) 2,400 mg PRN QHS PRN PO CONSTIPATION 08/24/20 18:15 Aspirin (Aspirin Chewable) 81 mg DAILY PO 08/25/20 09:00 10/05/20 09:25 Cetirizine HCl (ZyrTEC) 10 mg DAILY08 PO 08/25/20 08:00 10/05/20 09:25 Donepezil HCl (Aricept) 23 mg QHS PO 08/24/20 21:00 08/28/20 15:38 DC 08/27/20 20:34 Fluoxetine HCl (PROzac) 20 mg DAILY PO 08/25/20 09:00 10/05/20 09:25 Lorazepam (Ativan) 1 mg PRN Q4HRS PRN PO ANXIETY / AGITATION 08/24/20 18:45 09/04/20 16:12 DC 09/04/20 01:29 Atorvastatin Calcium (Lipitor) 40 mg QHS PO 08/24/20 21:00 10/05/20 19:50 Pantoprazole Sodium (Protonix) 40 mg DAILY08 PO 08/25/20 08:00 10/05/20 09:26 Multivitamins/ Calcium (Thera-M Plus) 1 tab DAILY PO 08/25/20 09:00 10/05/20 09:25 Mupirocin (Bactroban) 1 césar BID92 TP 08/25/20 09:00 09/03/20 12:35 DC 09/01/20 14:00 Fish Oil (Fish Oil) 1,000 mg DAILY PO 08/25/20 09:00 10/05/20 09:26 Olanzapine (ZyPREXA ZYDIS) 2.5 mg PRN Q2HR PRN PO PSYCHOSIS 08/24/20 19:45 09/21/20 19:44 Sertraline HCl (Zoloft) 25 mg DAILY PO 08/26/20 09:00 08/28/20 21:00 DC 08/28/20 08:37 Sertraline HCl (Zoloft) 50 mg DAILY PO 08/29/20 09:00 09/06/20 18:40 DC 09/04/20 08:58 Tamsulosin HCl (Flomax) 0.4 mg QHS PO 08/28/20 21:00 10/05/20 19:50 Mupirocin (Bactroban) 1 césar PRN BID PRN TP RASH 09/03/20 12:45 Diphenhydramine HCl (Benadryl) 50 mg 1X ONCE PO 09/04/20 21:00 09/04/20 21:01 DC 09/04/20 21:21 Olanzapine (ZyPREXA ZYDIS) 5 mg 1X ONCE PO 09/27/20 18:30 09/27/20 18:31 DC 09/27/20 18:30 Divalproex Sodium (Depakote Sprinkles) 125 mg 0900,1700 PO 09/28/20 17:00 10/05/20 17:21 Furosemide (Lasix) 80 mg 1X ONCE PO 09/30/20 15:30 09/30/20 15:31 DC 09/30/20 16:00 Furosemide (Lasix) 80 mg DAILY PO 10/01/20 09:00 10/05/20 09:26 Potassium Chloride (Klor-Con) 20 meq DAILYWBKFT PO 10/01/20 08:00 10/05/20 09:26 I have reviewed the current psychotropics carefully including drug interactions. Risk benefit ratio favors no change other than as noted in my dictated progress note. Diagnosis: Problems: (1) Impulse control disorder, unspecified (2) Anxiety disorder, unspecified (3) Dementia, vascular, with depression (4) Dementia, vascular, with delusions (5) Dementia in Alzheimer's disease with depression (6) Dementia in Alzheimer's disease with delusions (7) Dementia of the Alzheimer's type with early onset with behavioral disturbance (8) Major neurocognitive disorder VERENA AGUSTIN MD Oct 05, 2020 22:00
[2020-10-06 06:22] VITALS: BP 110/63
[2020-10-06] MEDS: DIVALPROEX 125 MG CAP.SPRINK PO SCH ×2 (08:16→17:36)
[2020-10-06] MEDS: CETIRIZINE HCL 10 MG TABLET PO SCH (08:16)
[2020-10-06] MEDS: MULTIVITAMIN with MINERAL TABLET. PO SCH (08:16)
[2020-10-06] MEDS: PANTOPRAZOLE 40 MG TABLET. PO SCH (08:16)
[2020-10-06] MEDS: OMEGA-3 FATTY ACIDS/FISH OIL 1,000 MG CAPSULE. PO SCH (08:16)
[2020-10-06] MEDS: POTASSIUM CHLORIDE 20 MEQ TABLET.ER. PO SCH (08:17)
[2020-10-06] MEDS: FUROSEMIDE 40 MG TABLET PO SCH (08:17)
[2020-10-06] MEDS: ASPIRIN CHEWABLE 81 MG TABLET. PO SCH (08:17)
--- NOTE | 2020-10-06 10:57 | TX PLAN ---
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 Change Sleep, Confusion/Disoriented, Poor impulse control, Other Problem in Patient's Words: I cannot care for him at home. Additional Admission Comments: According to the intake, pt was anxious, wandering, restless, insomnia, posturing [facility] staff, struck which resulted in police response Problems Active Problems: wandering restless Inactive Problems: medication compliant Pt Strengths/Limitations Ability for [place]: Poor Cognitive Functioning/Ability: Fair Communication Skills/Ability: Fair Financial Resources: Poor Insight/Judgement: Poor Intellectual Ability: Poor Physical Health: Fair Social Skills: Fair Stability in Family: Fair Stability in School/Work: Poor Verbal Skills: Fair Discharge Criteria Discharge Criteria: No need for close observ., Adequate arrangements @DC, Improved behavior, Improved mood/thought Preliminary Discharge Plan Preliminary DC Plan: Placement Needed Special Precautions Fall Risk: Low Initial D/C Plan Pt is not able to discharge home, will need placement once stable. Identified Discharge Needs: Referral for higher level of care Currently Utilized Resources Currently Utilized Resources/P: Primary Care Physician Identified Problems/Hx/Goals Objectives/Short-Term Goals Short Term Goals: Dec. Aggression, Dec. Outbursts, Medication Stabilization, Monitor Med Effects Short Term Goals in Patient's: N/A Interventions/Frequency Staff Interventions/Frequency&: Psychiatrist to assess pt at least 3x per week for medication management. Social Work to assess pt at least 2x per week to identify barriers to care and finalize discharge planning. Nursing to assess medication effects, behavior modification, and completion of 15 minute checks daily. Encourage participation in group activities (if applicable) or 1:1 engagement based off Activity Dept goals. 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 He received a Bachelors in Sociology. Community Follow-up Primary Care Physician Referrals to higher level of care Community Provider/Family Inpu: Pt has become increasingly aggressive towards his , who is caring for pt. She is not able to care for pt at home any longer. Treatment Plan Explained Patient/Project Manager Industrial had this treatment plan explained to him/her as indicated by the signature below and has been given the opportunity to ask questions and make suggestions: Date: Patient/Project Manager Industrial Signature: Status Update Update Pt is eating 100% of meals and sleeping on average 7 hours per night. Pt is pleasantly confused, calm and cooperative with all staff direction. Pt is compliant with medications whole. Pt does attend all groups and requires some prompting for participation. SW will continue to send out referrals for placement with discharge once placement can be found. WALESKA HARRELL Oct 06, 2020 10:57
[2020-10-06 15:55] VITALS: BP 113/58
[2020-10-06] MEDS: TAMSULOSIN 0.4 MG CAP.ER.24H. PO SCH (20:01)
[2020-10-06] MEDS: ATORVASTATIN CALCIUM 20 MG TABLET PO SCH (20:01)
--- NOTE | 2020-10-06 22:02 | PDOC ---
Exam Note: Fercho Note: Please also refer to the separate dictated note~for this date of service dictated separately.~Patient seen individually. Discussed the patient with Nursing staff reviewed the chart.~Reviewed interim history and current functioning. Reviewed vital signs,~Labs/ Radiology~and current medications noted below. Continue current treatment with the changes noted in the dictated addendum note Assessment: Vital Signs/I&O: Vital Signs Date Time Temp Pulse Resp B/P (MAP) Pulse Ox O2 Delivery O2 Flow Rate FiO2 10/06/20 15:55 97.4 77 18 113/58 (76) 98 Room Air I & O 10/05/20 10/05/20 10/06/20 15:00 23:00 07:00 Intake Total 480 ml 600 ml Balance 480 ml 600 ml Current Medications: Meds: Current Medications Medications (Trade) Dose Ordered Sig/Ashvin Route PRN Reason Start Time Stop Time Status Last Admin Dose Admin Acetaminophen (Tylenol) 650 mg PRN Q6HRS PRN PO MILD PAIN / TEMP > 100.3'F 08/24/20 18:15 09/04/20 08:58 Multi-Ingredient Ointment (Analgesic [place]) 1 césar PRN QID PRN TP MUSCLE PAIN 08/24/20 18:15 Al Hydroxide/Mg Hydroxide (Mylanta Plus Xs) 15 ml PRN AFTMEALHC PRN PO DYSPEPSIA 08/24/20 18:15 Magnesium Hydroxide (Milk Of Magnesia) 2,400 mg PRN QHS PRN PO CONSTIPATION 08/24/20 18:15 Aspirin (Aspirin Chewable) 81 mg DAILY PO 08/25/20 09:00 10/06/20 08:17 Cetirizine HCl (ZyrTEC) 10 mg DAILY08 PO 08/25/20 08:00 10/06/20 08:16 Donepezil HCl (Aricept) 23 mg QHS PO 08/24/20 21:00 08/28/20 15:38 DC 08/27/20 20:34 Fluoxetine HCl (PROzac) 20 mg DAILY PO 08/25/20 09:00 10/06/20 08:16 Lorazepam (Ativan) 1 mg PRN Q4HRS PRN PO ANXIETY / AGITATION 08/24/20 18:45 09/04/20 16:12 DC 09/04/20 01:29 Atorvastatin Calcium (Lipitor) 40 mg QHS PO 08/24/20 21:00 10/06/20 20:01 Pantoprazole Sodium (Protonix) 40 mg DAILY08 PO 08/25/20 08:00 10/06/20 08:16 Multivitamins/ Calcium (Thera-M Plus) 1 tab DAILY PO 08/25/20 09:00 10/06/20 08:16 Mupirocin (Bactroban) 1 césar BID92 TP 08/25/20 09:00 09/03/20 12:35 DC 09/01/20 14:00 Fish Oil (Fish Oil) 1,000 mg DAILY PO 08/25/20 09:00 10/06/20 08:16 Olanzapine (ZyPREXA ZYDIS) 2.5 mg PRN Q2HR PRN PO PSYCHOSIS 08/24/20 19:45 09/21/20 19:44 Sertraline HCl (Zoloft) 25 mg DAILY PO 08/26/20 09:00 08/28/20 21:00 DC 08/28/20 08:37 Sertraline HCl (Zoloft) 50 mg DAILY PO 08/29/20 09:00 09/06/20 18:40 DC 09/04/20 08:58 Tamsulosin HCl (Flomax) 0.4 mg QHS PO 08/28/20 21:00 10/06/20 20:01 Mupirocin (Bactroban) 1 césar PRN BID PRN TP RASH 09/03/20 12:45 Diphenhydramine HCl (Benadryl) 50 mg 1X ONCE PO 09/04/20 21:00 09/04/20 21:01 DC 09/04/20 21:21 Olanzapine (ZyPREXA ZYDIS) 5 mg 1X ONCE PO 09/27/20 18:30 09/27/20 18:31 DC 09/27/20 18:30 Divalproex Sodium (Depakote Sprinkles) 125 mg 0900,1700 PO 09/28/20 17:00 10/06/20 17:36 Furosemide (Lasix) 80 mg 1X ONCE PO 09/30/20 15:30 09/30/20 15:31 DC 09/30/20 16:00 Furosemide (Lasix) 80 mg DAILY PO 10/01/20 09:00 10/06/20 08:17 Potassium Chloride (Klor-Con) 20 meq DAILYWBKFT PO 10/01/20 08:00 10/06/20 08:17 I have reviewed the current psychotropics carefully including drug interactions. Risk benefit ratio favors no change other than as noted in my dictated progress note. Diagnosis: Problems: (1) Impulse control disorder, unspecified (2) Anxiety disorder, unspecified (3) Dementia, vascular, with depression (4) Dementia, vascular, with delusions (5) Dementia in Alzheimer's disease with depression (6) Dementia in Alzheimer's disease with delusions (7) Dementia of the Alzheimer's type with early onset with behavioral disturbance (8) Major neurocognitive disorder VERENA AGUSTIN MD Oct 06, 2020 22:02
[2020-10-07 05:54] VITALS: BP 123/79
--- NOTE | 2020-10-07 08:24 | PDOC ---
Exam Note: Fercho Note: This note is a late entry for 10/05/2020 covers elements not covered in my initial note. Subjective: The patient was seen individually in the evening of 10/05/2020 with Brittany ABREU, discussed and reviewed the chart. He slept 6-1/2 hours previous night. The patient is otherwise pleasant, not very verbal, smiling, at times whistling, walks up and down the hallways, redirectable. Review of Systems: No CV, , pulmonary, ENT system symptoms on review. Mental Status Exam: The patient is oriented to himself. Insight and judgment, recent and remote memory, attention and concentration fund of knowledge is poor consistent with his diagnoses. Laboratory Data: Reviewed. Impression: Major neurocognitive disorder Alzheimer vascular with delusion, depression, behavioral disturbance. Anxiety disorder unspecified. Impulse control disorder unspecified. Plan: Continue current psychotropics from initial note. Assessment: Vital Signs/I&O: Vital Signs Date Time Temp Pulse Resp B/P (MAP) Pulse Ox O2 Delivery O2 Flow Rate FiO2 10/07/20 05:54 96.9 70 14 123/79 (94) 95 Room Air I & O 10/06/20 10/06/20 10/07/20 15:00 23:00 07:00 Intake Total 600 ml 960 ml Balance 600 ml 960 ml Current Medications: Meds: Current Medications Medications (Trade) Dose Ordered Sig/Ashvin Route PRN Reason Start Time Stop Time Status Last Admin Dose Admin Acetaminophen (Tylenol) 650 mg PRN Q6HRS PRN PO MILD PAIN / TEMP > 100.3'F 08/24/20 18:15 09/04/20 08:58 Multi-Ingredient Ointment (Analgesic [place]) 1 césar PRN QID PRN TP MUSCLE PAIN 08/24/20 18:15 Al Hydroxide/Mg Hydroxide (Mylanta Plus Xs) 15 ml PRN AFTMEALHC PRN PO DYSPEPSIA 08/24/20 18:15 Magnesium Hydroxide (Milk Of Magnesia) 2,400 mg PRN QHS PRN PO CONSTIPATION 08/24/20 18:15 Aspirin (Aspirin Chewable) 81 mg DAILY PO 08/25/20 09:00 10/06/20 08:17 Cetirizine HCl (ZyrTEC) 10 mg DAILY08 PO 08/25/20 08:00 10/06/20 08:16 Donepezil HCl (Aricept) 23 mg QHS PO 08/24/20 21:00 08/28/20 15:38 DC 08/27/20 20:34 Fluoxetine HCl (PROzac) 20 mg DAILY PO 08/25/20 09:00 10/06/20 08:16 Lorazepam (Ativan) 1 mg PRN Q4HRS PRN PO ANXIETY / AGITATION 08/24/20 18:45 09/04/20 16:12 DC 09/04/20 01:29 Atorvastatin Calcium (Lipitor) 40 mg QHS PO 08/24/20 21:00 10/06/20 20:01 Pantoprazole Sodium (Protonix) 40 mg DAILY08 PO 08/25/20 08:00 10/06/20 08:16 Multivitamins/ Calcium (Thera-M Plus) 1 tab DAILY PO 08/25/20 09:00 10/06/20 08:16 Mupirocin (Bactroban) 1 césar BID92 TP 08/25/20 09:00 09/03/20 12:35 DC 09/01/20 14:00 Fish Oil (Fish Oil) 1,000 mg DAILY PO 08/25/20 09:00 10/06/20 08:16 Olanzapine (ZyPREXA ZYDIS) 2.5 mg PRN Q2HR PRN PO PSYCHOSIS 08/24/20 19:45 09/21/20 19:44 Sertraline HCl (Zoloft) 25 mg DAILY PO 08/26/20 09:00 08/28/20 21:00 DC 08/28/20 08:37 Sertraline HCl (Zoloft) 50 mg DAILY PO 08/29/20 09:00 09/06/20 18:40 DC 09/04/20 08:58 Tamsulosin HCl (Flomax) 0.4 mg QHS PO 08/28/20 21:00 10/06/20 20:01 Mupirocin (Bactroban) 1 césar PRN BID PRN TP RASH 09/03/20 12:45 Diphenhydramine HCl (Benadryl) 50 mg 1X ONCE PO 09/04/20 21:00 09/04/20 21:01 DC 09/04/20 21:21 Olanzapine (ZyPREXA ZYDIS) 5 mg 1X ONCE PO 09/27/20 18:30 09/27/20 18:31 DC 09/27/20 18:30 Divalproex Sodium (Depakote Sprinkles) 125 mg 0900,1700 PO 09/28/20 17:00 10/06/20 17:36 Furosemide (Lasix) 80 mg 1X ONCE PO 09/30/20 15:30 09/30/20 15:31 DC 09/30/20 16:00 Furosemide (Lasix) 80 mg DAILY PO 10/01/20 09:00 10/06/20 08:17 Potassium Chloride (Klor-Con) 20 meq DAILYWBKFT PO 10/01/20 08:00 10/06/20 08:17 I have reviewed the current psychotropics carefully including drug interactions. Risk benefit ratio favors no change other than as noted in my dictated progress note. Diagnosis: Problems: (1) Impulse control disorder, unspecified (2) Anxiety disorder, unspecified (3) Dementia, vascular, with depression (4) Dementia, vascular, with delusions (5) Dementia in Alzheimer's disease with depression (6) Dementia in Alzheimer's disease with delusions (7) Dementia of the Alzheimer's type with early onset with behavioral disturbance (8) Major neurocognitive disorder VERENA AGUSTIN MD Oct 07, 2020 08:24
[2020-10-07] MEDS: OMEGA-3 FATTY ACIDS/FISH OIL 1,000 MG CAPSULE. PO SCH (08:37)
[2020-10-07] MEDS: PANTOPRAZOLE 40 MG TABLET. PO SCH (08:37)
[2020-10-07] MEDS: CETIRIZINE HCL 10 MG TABLET PO SCH (08:37)
[2020-10-07] MEDS: ASPIRIN CHEWABLE 81 MG TABLET. PO SCH (08:38)
[2020-10-07] MEDS: POTASSIUM CHLORIDE 20 MEQ TABLET.ER. PO SCH (08:38)
[2020-10-07] MEDS: FUROSEMIDE 40 MG TABLET PO SCH (08:38)
[2020-10-07] MEDS: MULTIVITAMIN with MINERAL TABLET. PO SCH (08:38)
[2020-10-07] MEDS: DIVALPROEX 125 MG CAP.SPRINK PO SCH ×2 (08:38→17:16)
--- NOTE | 2020-10-07 08:43 | PDOC ---
Exam Note: Fercho Note: This note is a late entry for 10/06/2020 covers elements not covered in my initial note. Subjective: The patient was reviewed in the morning of 10/06/2020 for a treatment team meeting with Indy العلي (psychiatric social worker), Ingrid, activity therapy and Tala ABREU, discussed and reviewed the chart. He slept 7-3/4 hours previous night. The patient remains confused, wanders up and down the hallways, smiles and has some latency of verbal responses, not aggressive. Review of Systems: No CV, , pulmonary, ENT system symptoms on review. Mental Status Exam: The patient is oriented to himself. Insight and judgment, recent and remote memory, attention and concentration fund of knowledge is poor consistent with his diagnoses. Laboratory Data: Reviewed. Impression: Major neurocognitive disorder Alzheimer vascular with delusion, depression, behavioral disturbance. Anxiety disorder unspecified. Impulse control disorder unspecified. Plan: Continue current psychotropics from initial note. Assessment: Vital Signs/I&O: Vital Signs Date Time Temp Pulse Resp B/P (MAP) Pulse Ox O2 Delivery O2 Flow Rate FiO2 10/07/20 05:54 96.9 70 14 123/79 (94) 95 Room Air I & O 10/06/20 10/06/20 10/07/20 15:00 23:00 07:00 Intake Total 600 ml 960 ml Balance 600 ml 960 ml Current Medications: Meds: Current Medications Medications (Trade) Dose Ordered Sig/Ashvin Route PRN Reason Start Time Stop Time Status Last Admin Dose Admin Acetaminophen (Tylenol) 650 mg PRN Q6HRS PRN PO MILD PAIN / TEMP > 100.3'F 08/24/20 18:15 09/04/20 08:58 Multi-Ingredient Ointment (Analgesic [place]) 1 césar PRN QID PRN TP MUSCLE PAIN 08/24/20 18:15 Al Hydroxide/Mg Hydroxide (Mylanta Plus Xs) 15 ml PRN AFTMEALHC PRN PO DYSPEPSIA 08/24/20 18:15 Magnesium Hydroxide (Milk Of Magnesia) 2,400 mg PRN QHS PRN PO CONSTIPATION 08/24/20 18:15 Aspirin (Aspirin Chewable) 81 mg DAILY PO 08/25/20 09:00 10/07/20 08:38 Cetirizine HCl (ZyrTEC) 10 mg DAILY08 PO 08/25/20 08:00 10/07/20 08:37 Donepezil HCl (Aricept) 23 mg QHS PO 08/24/20 21:00 08/28/20 15:38 DC 08/27/20 20:34 Fluoxetine HCl (PROzac) 20 mg DAILY PO 08/25/20 09:00 10/07/20 08:37 Lorazepam (Ativan) 1 mg PRN Q4HRS PRN PO ANXIETY / AGITATION 08/24/20 18:45 09/04/20 16:12 DC 09/04/20 01:29 Atorvastatin Calcium (Lipitor) 40 mg QHS PO 08/24/20 21:00 10/06/20 20:01 Pantoprazole Sodium (Protonix) 40 mg DAILY08 PO 08/25/20 08:00 10/07/20 08:37 Multivitamins/ Calcium (Thera-M Plus) 1 tab DAILY PO 08/25/20 09:00 10/07/20 08:38 Mupirocin (Bactroban) 1 césar BID92 TP 08/25/20 09:00 09/03/20 12:35 DC 09/01/20 14:00 Fish Oil (Fish Oil) 1,000 mg DAILY PO 08/25/20 09:00 10/07/20 08:37 Olanzapine (ZyPREXA ZYDIS) 2.5 mg PRN Q2HR PRN PO PSYCHOSIS 08/24/20 19:45 09/21/20 19:44 Sertraline HCl (Zoloft) 25 mg DAILY PO 08/26/20 09:00 08/28/20 21:00 DC 08/28/20 08:37 Sertraline HCl (Zoloft) 50 mg DAILY PO 08/29/20 09:00 09/06/20 18:40 DC 09/04/20 08:58 Tamsulosin HCl (Flomax) 0.4 mg QHS PO 08/28/20 21:00 10/06/20 20:01 Mupirocin (Bactroban) 1 césar PRN BID PRN TP RASH 09/03/20 12:45 Diphenhydramine HCl (Benadryl) 50 mg 1X ONCE PO 09/04/20 21:00 09/04/20 21:01 DC 09/04/20 21:21 Olanzapine (ZyPREXA ZYDIS) 5 mg 1X ONCE PO 09/27/20 18:30 09/27/20 18:31 DC 09/27/20 18:30 Divalproex Sodium (Depakote Sprinkles) 125 mg 0900,1700 PO 09/28/20 17:00 10/07/20 08:38 Furosemide (Lasix) 80 mg 1X ONCE PO 09/30/20 15:30 09/30/20 15:31 DC 09/30/20 16:00 Furosemide (Lasix) 80 mg DAILY PO 10/01/20 09:00 10/07/20 08:38 Potassium Chloride (Klor-Con) 20 meq DAILYWBKFT PO 10/01/20 08:00 10/07/20 08:38 I have reviewed the current psychotropics carefully including drug interactions. Risk benefit ratio favors no change other than as noted in my dictated progress note. Diagnosis: Problems: (1) Impulse control disorder, unspecified (2) Anxiety disorder, unspecified (3) Dementia, vascular, with depression (4) Dementia, vascular, with delusions (5) Dementia in Alzheimer's disease with depression (6) Dementia in Alzheimer's disease with delusions (7) Dementia of the Alzheimer's type with early onset with behavioral disturbance (8) Major neurocognitive disorder VERENA AGUSTIN MD Oct 07, 2020 08:43
[2020-10-07 15:27] VITALS: BP 94/60
[2020-10-07] MEDS: TAMSULOSIN 0.4 MG CAP.ER.24H. PO SCH (20:14)
[2020-10-07] MEDS: ATORVASTATIN CALCIUM 20 MG TABLET PO SCH (20:14)
--- NOTE | 2020-10-07 21:59 | PDOC ---
Exam Note: Fercho Note: Please also refer to the separate dictated note~for this date of service dictated separately.~Patient seen individually. Discussed the patient with Nursing staff reviewed the chart.~Reviewed interim history and current functioning. Reviewed vital signs,~Labs/ Radiology~and current medications noted below. Continue current treatment with the changes noted in the dictated addendum note Assessment: Vital Signs/I&O: Vital Signs Date Time Temp Pulse Resp B/P (MAP) Pulse Ox O2 Delivery O2 Flow Rate FiO2 10/07/20 15:27 97.6 94 20 94/60 (71) 97 Room Air I & O 10/06/20 10/06/20 10/07/20 15:00 23:00 07:00 Intake Total 600 ml 960 ml Balance 600 ml 960 ml Current Medications: Meds: Current Medications Medications (Trade) Dose Ordered Sig/Ashvin Route PRN Reason Start Time Stop Time Status Last Admin Dose Admin Acetaminophen (Tylenol) 650 mg PRN Q6HRS PRN PO MILD PAIN / TEMP > 100.3'F 08/24/20 18:15 09/04/20 08:58 Multi-Ingredient Ointment (Analgesic [place]) 1 césar PRN QID PRN TP MUSCLE PAIN 08/24/20 18:15 Al Hydroxide/Mg Hydroxide (Mylanta Plus Xs) 15 ml PRN AFTMEALHC PRN PO DYSPEPSIA 08/24/20 18:15 Magnesium Hydroxide (Milk Of Magnesia) 2,400 mg PRN QHS PRN PO CONSTIPATION 08/24/20 18:15 Aspirin (Aspirin Chewable) 81 mg DAILY PO 08/25/20 09:00 10/07/20 08:38 Cetirizine HCl (ZyrTEC) 10 mg DAILY08 PO 08/25/20 08:00 10/07/20 08:37 Donepezil HCl (Aricept) 23 mg QHS PO 08/24/20 21:00 08/28/20 15:38 DC 08/27/20 20:34 Fluoxetine HCl (PROzac) 20 mg DAILY PO 08/25/20 09:00 10/07/20 08:37 Lorazepam (Ativan) 1 mg PRN Q4HRS PRN PO ANXIETY / AGITATION 08/24/20 18:45 09/04/20 16:12 DC 09/04/20 01:29 Atorvastatin Calcium (Lipitor) 40 mg QHS PO 08/24/20 21:00 10/07/20 20:14 Pantoprazole Sodium (Protonix) 40 mg DAILY08 PO 08/25/20 08:00 10/07/20 08:37 Multivitamins/ Calcium (Thera-M Plus) 1 tab DAILY PO 08/25/20 09:00 10/07/20 08:38 Mupirocin (Bactroban) 1 césar BID92 TP 08/25/20 09:00 09/03/20 12:35 DC 09/01/20 14:00 Fish Oil (Fish Oil) 1,000 mg DAILY PO 08/25/20 09:00 10/07/20 08:37 Olanzapine (ZyPREXA ZYDIS) 2.5 mg PRN Q2HR PRN PO PSYCHOSIS 08/24/20 19:45 09/21/20 19:44 Sertraline HCl (Zoloft) 25 mg DAILY PO 08/26/20 09:00 08/28/20 21:00 DC 08/28/20 08:37 Sertraline HCl (Zoloft) 50 mg DAILY PO 08/29/20 09:00 09/06/20 18:40 DC 09/04/20 08:58 Tamsulosin HCl (Flomax) 0.4 mg QHS PO 08/28/20 21:00 10/07/20 20:14 Mupirocin (Bactroban) 1 césar PRN BID PRN TP RASH 09/03/20 12:45 Diphenhydramine HCl (Benadryl) 50 mg 1X ONCE PO 09/04/20 21:00 09/04/20 21:01 DC 09/04/20 21:21 Olanzapine (ZyPREXA ZYDIS) 5 mg 1X ONCE PO 09/27/20 18:30 09/27/20 18:31 DC 09/27/20 18:30 Divalproex Sodium (Depakote Sprinkles) 125 mg 0900,1700 PO 09/28/20 17:00 10/07/20 17:16 Furosemide (Lasix) 80 mg 1X ONCE PO 09/30/20 15:30 09/30/20 15:31 DC 09/30/20 16:00 Furosemide (Lasix) 80 mg DAILY PO 10/01/20 09:00 10/07/20 08:38 Potassium Chloride (Klor-Con) 20 meq DAILYWBKFT PO 10/01/20 08:00 10/07/20 08:38 I have reviewed the current psychotropics carefully including drug interactions. Risk benefit ratio favors no change other than as noted in my dictated progress note. Diagnosis: Problems: (1) Impulse control disorder, unspecified (2) Anxiety disorder, unspecified (3) Dementia, vascular, with depression (4) Dementia, vascular, with delusions (5) Dementia in Alzheimer's disease with depression (6) Dementia in Alzheimer's disease with delusions (7) Dementia of the Alzheimer's type with early onset with behavioral disturbance (8) Major neurocognitive disorder VERENA AGUSTIN MD Oct 07, 2020 21:59
[2020-10-08 05:23] VITALS: BP 100/61
[2020-10-08] MEDS: FUROSEMIDE 40 MG TABLET PO SCH (08:09)
[2020-10-08] MEDS: POTASSIUM CHLORIDE 20 MEQ TABLET.ER. PO SCH (08:09)
[2020-10-08] MEDS: ASPIRIN CHEWABLE 81 MG TABLET. PO SCH (08:09)
[2020-10-08] MEDS: MULTIVITAMIN with MINERAL TABLET. PO SCH (08:09)
[2020-10-08] MEDS: DIVALPROEX 125 MG CAP.SPRINK PO SCH ×2 (08:09→17:00)
[2020-10-08] MEDS: CETIRIZINE HCL 10 MG TABLET PO SCH (08:09)
[2020-10-08] MEDS: OMEGA-3 FATTY ACIDS/FISH OIL 1,000 MG CAPSULE. PO SCH (08:09)
[2020-10-08] MEDS: PANTOPRAZOLE 40 MG TABLET. PO SCH (08:09)
[2020-10-08 15:47] VITALS: BP 113/72
[2020-10-08] MEDS: traZODone 50 MG TABLET. PO PRN (20:00)
[2020-10-08] MEDS: ATORVASTATIN CALCIUM 20 MG TABLET PO SCH (20:01)
[2020-10-08] MEDS: TAMSULOSIN 0.4 MG CAP.ER.24H. PO SCH (20:01)
--- NOTE | 2020-10-08 21:56 | PDOC ---
Exam Note: Fercho Note: Please also refer to the separate dictated note~for this date of service dictated separately.~Patient seen individually. Discussed the patient with Nursing staff reviewed the chart.~Reviewed interim history and current functioning. Reviewed vital signs,~Labs/ Radiology~and current medications noted below. Continue current treatment with the changes noted in the dictated addendum note Assessment: Vital Signs/I&O: Vital Signs Date Time Temp Pulse Resp B/P (MAP) Pulse Ox O2 Delivery O2 Flow Rate FiO2 10/08/20 15:47 97.7 77 20 113/72 (86) 98 Room Air I & O 10/07/20 10/07/20 10/08/20 15:00 23:00 07:00 Intake Total 600 ml 480 ml Balance 600 ml 480 ml Current Medications: Meds: Current Medications Medications (Trade) Dose Ordered Sig/Ashvin Route PRN Reason Start Time Stop Time Status Last Admin Dose Admin Acetaminophen (Tylenol) 650 mg PRN Q6HRS PRN PO MILD PAIN / TEMP > 100.3'F 08/24/20 18:15 09/04/20 08:58 Multi-Ingredient Ointment (Analgesic [place]) 1 césar PRN QID PRN TP MUSCLE PAIN 08/24/20 18:15 Al Hydroxide/Mg Hydroxide (Mylanta Plus Xs) 15 ml PRN AFTMEALHC PRN PO DYSPEPSIA 08/24/20 18:15 Magnesium Hydroxide (Milk Of Magnesia) 2,400 mg PRN QHS PRN PO CONSTIPATION 08/24/20 18:15 Aspirin (Aspirin Chewable) 81 mg DAILY PO 08/25/20 09:00 10/08/20 08:09 Cetirizine HCl (ZyrTEC) 10 mg DAILY08 PO 08/25/20 08:00 10/08/20 08:09 Donepezil HCl (Aricept) 23 mg QHS PO 08/24/20 21:00 08/28/20 15:38 DC 08/27/20 20:34 Fluoxetine HCl (PROzac) 20 mg DAILY PO 08/25/20 09:00 10/08/20 08:09 Lorazepam (Ativan) 1 mg PRN Q4HRS PRN PO ANXIETY / AGITATION 08/24/20 18:45 09/04/20 16:12 DC 09/04/20 01:29 Atorvastatin Calcium (Lipitor) 40 mg QHS PO 08/24/20 21:00 10/08/20 20:01 Pantoprazole Sodium (Protonix) 40 mg DAILY08 PO 08/25/20 08:00 10/08/20 08:09 Multivitamins/ Calcium (Thera-M Plus) 1 tab DAILY PO 08/25/20 09:00 10/08/20 08:09 Mupirocin (Bactroban) 1 césar BID92 TP 08/25/20 09:00 09/03/20 12:35 DC 09/01/20 14:00 Fish Oil (Fish Oil) 1,000 mg DAILY PO 08/25/20 09:00 10/08/20 08:09 Olanzapine (ZyPREXA ZYDIS) 2.5 mg PRN Q2HR PRN PO PSYCHOSIS 08/24/20 19:45 09/21/20 19:44 Sertraline HCl (Zoloft) 25 mg DAILY PO 08/26/20 09:00 08/28/20 21:00 DC 08/28/20 08:37 Sertraline HCl (Zoloft) 50 mg DAILY PO 08/29/20 09:00 09/06/20 18:40 DC 09/04/20 08:58 Tamsulosin HCl (Flomax) 0.4 mg QHS PO 08/28/20 21:00 10/08/20 20:01 Mupirocin (Bactroban) 1 césar PRN BID PRN TP RASH 09/03/20 12:45 Diphenhydramine HCl (Benadryl) 50 mg 1X ONCE PO 09/04/20 21:00 09/04/20 21:01 DC 09/04/20 21:21 Olanzapine (ZyPREXA ZYDIS) 5 mg 1X ONCE PO 09/27/20 18:30 09/27/20 18:31 DC 09/27/20 18:30 Divalproex Sodium (Depakote Sprinkles) 125 mg 0900,1700 PO 09/28/20 17:00 10/08/20 17:00 Furosemide (Lasix) 80 mg 1X ONCE PO 09/30/20 15:30 09/30/20 15:31 DC 09/30/20 16:00 Furosemide (Lasix) 80 mg DAILY PO 10/01/20 09:00 10/08/20 08:09 Potassium Chloride (Klor-Con) 20 meq DAILYWBKFT PO 10/01/20 08:00 10/08/20 08:09 Trazodone HCl (Desyrel) 50 mg PRN QHS PRN PO INSOMNIA 10/08/20 16:15 10/08/20 20:00 Current Medications Medications (Trade) Dose Ordered Sig/Ashvin Route PRN Reason Start Time Stop Time Status Last Admin Dose Admin Trazodone HCl (Desyrel) 50 mg PRN QHS PRN PO INSOMNIA 10/08/20 16:15 10/08/20 20:00 I have reviewed the current psychotropics carefully including drug interactions. Risk benefit ratio favors no change other than as noted in my dictated progress note. Diagnosis: Problems: (1) Impulse control disorder, unspecified (2) Anxiety disorder, unspecified (3) Dementia, vascular, with depression (4) Dementia, vascular, with delusions (5) Dementia in Alzheimer's disease with depression (6) Dementia in Alzheimer's disease with delusions (7) Dementia of the Alzheimer's type with early onset with behavioral disturbance (8) Major neurocognitive disorder VERENA AGUSTIN MD Oct 08, 2020 21:56
[2020-10-09 05:41] VITALS: BP 126/57
--- NOTE | 2020-10-09 07:59 | PDOC ---
Exam Note: Fercho Note: This note is a late entry for 10/07/2020 covers elements not covered in my initial note. Subjective: The patient was seen individually in the evening of 10/07/2020 with Spring ABREU, discussed and reviewed the chart. He slept 6-3/4 hours previous night. The patient remains confused, pleasant, smiling, wanders the hallways. No aggressive or disruptive behaviors noted. He is tolerating the Depakote which was initiated for him. Review of Systems: No CV, , pulmonary, ENT system symptoms on review. Mental Status Exam: The patient is oriented to himself. Insight and judgment, recent and remote memory, attention and concentration fund of knowledge is poor consistent with his diagnoses. Laboratory Data: Reviewed. Impression: Major neurocognitive disorder Alzheimer vascular with delusion, depression, behavioral disturbance. Anxiety disorder unspecified. Impulse control disorder unspecified. Plan: Continue current psychotropics from initial note. Assessment: Vital Signs/I&O: Vital Signs Date Time Temp Pulse Resp B/P (MAP) Pulse Ox O2 Delivery O2 Flow Rate FiO2 10/09/20 05:41 97.7 75 14 126/57 (80) 96 Room Air I & O 10/08/20 10/08/20 10/09/20 15:00 23:00 07:00 Intake Total 600 ml 480 ml Balance 600 ml 480 ml Current Medications: Meds: Current Medications Medications (Trade) Dose Ordered Sig/Ashvin Route PRN Reason Start Time Stop Time Status Last Admin Dose Admin Acetaminophen (Tylenol) 650 mg PRN Q6HRS PRN PO MILD PAIN / TEMP > 100.3'F 08/24/20 18:15 09/04/20 08:58 Multi-Ingredient Ointment (Analgesic [place]) 1 césar PRN QID PRN TP MUSCLE PAIN 08/24/20 18:15 Al Hydroxide/Mg Hydroxide (Mylanta Plus Xs) 15 ml PRN AFTMEALHC PRN PO DYSPEPSIA 08/24/20 18:15 Magnesium Hydroxide (Milk Of Magnesia) 2,400 mg PRN QHS PRN PO CONSTIPATION 08/24/20 18:15 Aspirin (Aspirin Chewable) 81 mg DAILY PO 08/25/20 09:00 10/08/20 08:09 Cetirizine HCl (ZyrTEC) 10 mg DAILY08 PO 08/25/20 08:00 10/08/20 08:09 Donepezil HCl (Aricept) 23 mg QHS PO 08/24/20 21:00 08/28/20 15:38 DC 08/27/20 20:34 Fluoxetine HCl (PROzac) 20 mg DAILY PO 08/25/20 09:00 10/08/20 08:09 Lorazepam (Ativan) 1 mg PRN Q4HRS PRN PO ANXIETY / AGITATION 08/24/20 18:45 09/04/20 16:12 DC 09/04/20 01:29 Atorvastatin Calcium (Lipitor) 40 mg QHS PO 08/24/20 21:00 10/08/20 20:01 Pantoprazole Sodium (Protonix) 40 mg DAILY08 PO 08/25/20 08:00 10/08/20 08:09 Multivitamins/ Calcium (Thera-M Plus) 1 tab DAILY PO 08/25/20 09:00 10/08/20 08:09 Mupirocin (Bactroban) 1 césar BID92 TP 08/25/20 09:00 09/03/20 12:35 DC 09/01/20 14:00 Fish Oil (Fish Oil) 1,000 mg DAILY PO 08/25/20 09:00 10/08/20 08:09 Olanzapine (ZyPREXA ZYDIS) 2.5 mg PRN Q2HR PRN PO PSYCHOSIS 08/24/20 19:45 09/21/20 19:44 Sertraline HCl (Zoloft) 25 mg DAILY PO 08/26/20 09:00 08/28/20 21:00 DC 08/28/20 08:37 Sertraline HCl (Zoloft) 50 mg DAILY PO 08/29/20 09:00 09/06/20 18:40 DC 09/04/20 08:58 Tamsulosin HCl (Flomax) 0.4 mg QHS PO 08/28/20 21:00 10/08/20 20:01 Mupirocin (Bactroban) 1 césar PRN BID PRN TP RASH 09/03/20 12:45 Diphenhydramine HCl (Benadryl) 50 mg 1X ONCE PO 09/04/20 21:00 09/04/20 21:01 DC 09/04/20 21:21 Olanzapine (ZyPREXA ZYDIS) 5 mg 1X ONCE PO 09/27/20 18:30 09/27/20 18:31 DC 09/27/20 18:30 Divalproex Sodium (Depakote Sprinkles) 125 mg 0900,1700 PO 09/28/20 17:00 10/08/20 17:00 Furosemide (Lasix) 80 mg 1X ONCE PO 09/30/20 15:30 09/30/20 15:31 DC 09/30/20 16:00 Furosemide (Lasix) 80 mg DAILY PO 10/01/20 09:00 10/08/20 08:09 Potassium Chloride (Klor-Con) 20 meq DAILYWBKFT PO 10/01/20 08:00 10/08/20 08:09 Trazodone HCl (Desyrel) 50 mg PRN QHS PRN PO INSOMNIA 10/08/20 16:15 10/08/20 20:00 Current Medications Medications (Trade) Dose Ordered Sig/Ashvin Route PRN Reason Start Time Stop Time Status Last Admin Dose Admin Trazodone HCl (Desyrel) 50 mg PRN QHS PRN PO INSOMNIA 10/08/20 16:15 10/08/20 20:00 I have reviewed the current psychotropics carefully including drug interactions. Risk benefit ratio favors no change other than as noted in my dictated progress note. Diagnosis: Problems: (1) Impulse control disorder, unspecified (2) Anxiety disorder, unspecified (3) Dementia, vascular, with depression (4) Dementia, vascular, with delusions (5) Dementia in Alzheimer's disease with depression (6) Dementia in Alzheimer's disease with delusions (7) Dementia of the Alzheimer's type with early onset with behavioral disturbance (8) Major neurocognitive disorder VERENA AGUSTIN MD Oct 09, 2020 07:59
[2020-10-09] MEDS: MULTIVITAMIN with MINERAL TABLET. PO SCH (08:38)
[2020-10-09] MEDS: CETIRIZINE HCL 10 MG TABLET PO SCH (08:38)
[2020-10-09] MEDS: ASPIRIN CHEWABLE 81 MG TABLET. PO SCH (08:38)
[2020-10-09] MEDS: POTASSIUM CHLORIDE 20 MEQ TABLET.ER. PO SCH (08:38)
[2020-10-09] MEDS: DIVALPROEX 125 MG CAP.SPRINK PO SCH ×2 (08:38→17:20)
[2020-10-09] MEDS: PANTOPRAZOLE 40 MG TABLET. PO SCH (08:38)
[2020-10-09] MEDS: OMEGA-3 FATTY ACIDS/FISH OIL 1,000 MG CAPSULE. PO SCH (08:38)
[2020-10-09] MEDS: FUROSEMIDE 40 MG TABLET PO SCH (08:39)
--- NOTE | 2020-10-09 08:52 | PDOC ---
Exam Note: Fercho Note: This note is a late entry for 10/08/2020 covers elements not covered in my initial note. Subjective: The patient was seen individually in the evening of 10/08/2020 with Mera ABREU, discussed and reviewed the chart. He slept 3-1/4 hours previous night. Overall the patient remains pleasant, confused, wanders the hallways, smiles gently which is typical for him. Review of Systems: No CV, , pulmonary, ENT system symptoms on review. Mental Status Exam: The patient is oriented to himself. Insight and judgment, recent and remote memory, attention and concentration fund of knowledge is poor consistent with his diagnoses. Laboratory Data: Reviewed. Impression: Major neurocognitive disorder Alzheimer vascular with delusion, depression, behavioral disturbance. Anxiety disorder unspecified. Impulse control disorder unspecified. Plan: Continue current psychotropics from initial note. Given his insomnia we will add trazodone 50 mg h.s. p.r.n. insomnia. Assessment: Vital Signs/I&O: Vital Signs Date Time Temp Pulse Resp B/P (MAP) Pulse Ox O2 Delivery O2 Flow Rate FiO2 10/09/20 05:41 97.7 75 14 126/57 (80) 96 Room Air I & O 10/08/20 10/08/20 10/09/20 14:59 22:59 06:59 Intake Total 600 ml 480 ml Balance 600 ml 480 ml Current Medications: Meds: Current Medications Medications (Trade) Dose Ordered Sig/Ashvin Route PRN Reason Start Time Stop Time Status Last Admin Dose Admin Acetaminophen (Tylenol) 650 mg PRN Q6HRS PRN PO MILD PAIN / TEMP > 100.3'F 08/24/20 18:15 09/04/20 08:58 Multi-Ingredient Ointment (Analgesic [place]) 1 césar PRN QID PRN TP MUSCLE PAIN 08/24/20 18:15 Al Hydroxide/Mg Hydroxide (Mylanta Plus Xs) 15 ml PRN AFTMEALHC PRN PO DYSPEPSIA 08/24/20 18:15 Magnesium Hydroxide (Milk Of Magnesia) 2,400 mg PRN QHS PRN PO CONSTIPATION 08/24/20 18:15 Aspirin (Aspirin Chewable) 81 mg DAILY PO 08/25/20 09:00 10/09/20 08:38 Cetirizine HCl (ZyrTEC) 10 mg DAILY08 PO 5/6/21 08:00 10/09/20 08:38 Donepezil HCl (Aricept) 23 mg QHS PO 08/24/20 21:00 08/28/20 15:38 DC 08/27/20 20:34 Fluoxetine HCl (PROzac) 20 mg DAILY PO 08/25/20 09:00 10/09/20 08:38 Lorazepam (Ativan) 1 mg PRN Q4HRS PRN PO ANXIETY / AGITATION 08/24/20 18:45 09/04/20 16:12 DC 09/04/20 01:29 Atorvastatin Calcium (Lipitor) 40 mg QHS PO 08/24/20 21:00 10/08/20 20:01 Pantoprazole Sodium (Protonix) 40 mg DAILY08 PO 08/25/20 08:00 10/09/20 08:38 Multivitamins/ Calcium (Thera-M Plus) 1 tab DAILY PO 08/25/20 09:00 10/09/20 08:38 Mupirocin (Bactroban) 1 césar BID92 TP 08/25/20 09:00 09/03/20 12:35 DC 09/01/20 14:00 Fish Oil (Fish Oil) 1,000 mg DAILY PO 08/25/20 09:00 10/09/20 08:38 Olanzapine (ZyPREXA ZYDIS) 2.5 mg PRN Q2HR PRN PO PSYCHOSIS 08/24/20 19:45 09/21/20 19:44 Sertraline HCl (Zoloft) 25 mg DAILY PO 08/26/20 09:00 08/28/20 21:00 DC 08/28/20 08:37 Sertraline HCl (Zoloft) 50 mg DAILY PO 08/29/20 09:00 09/06/20 18:40 DC 09/04/20 08:58 Tamsulosin HCl (Flomax) 0.4 mg QHS PO 08/28/20 21:00 10/08/20 20:01 Mupirocin (Bactroban) 1 césar PRN BID PRN TP RASH 09/03/20 12:45 Diphenhydramine HCl (Benadryl) 50 mg 1X ONCE PO 09/04/20 21:00 09/04/20 21:01 DC 09/04/20 21:21 Olanzapine (ZyPREXA ZYDIS) 5 mg 1X ONCE PO 09/27/20 18:30 09/27/20 18:31 DC 09/27/20 18:30 Divalproex Sodium (Depakote Sprinkles) 125 mg 0900,1700 PO 09/28/20 17:00 10/09/20 08:38 Furosemide (Lasix) 80 mg 1X ONCE PO 09/30/20 15:30 09/30/20 15:31 DC 09/30/20 16:00 Furosemide (Lasix) 80 mg DAILY PO 10/01/20 09:00 10/09/20 08:39 Potassium Chloride (Klor-Con) 20 meq DAILYWBKFT PO 10/01/20 08:00 10/09/20 08:38 Trazodone HCl (Desyrel) 50 mg PRN QHS PRN PO INSOMNIA 10/08/20 16:15 10/08/20 20:00 Current Medications Medications (Trade) Dose Ordered Sig/Ashvin Route PRN Reason Start Time Stop Time Status Last Admin Dose Admin Trazodone HCl (Desyrel) 50 mg PRN QHS PRN PO INSOMNIA 10/08/20 16:15 10/08/20 20:00 I have reviewed the current psychotropics carefully including drug interactions. Risk benefit ratio favors no change other than as noted in my dictated progress note. Diagnosis: Problems: (1) Impulse control disorder, unspecified (2) Anxiety disorder, unspecified (3) Dementia, vascular, with depression (4) Dementia, vascular, with delusions (5) Dementia in Alzheimer's disease with depression (6) Dementia in Alzheimer's disease with delusions (7) Dementia of the Alzheimer's type with early onset with behavioral disturbance (8) Major neurocognitive disorder VERENA AGUSTIN MD Oct 09, 2020 08:52
[2020-10-09 15:14] VITALS: BP 97/64
[2020-10-09] MEDS: TAMSULOSIN 0.4 MG CAP.ER.24H. PO SCH (20:14)
[2020-10-09] MEDS: traZODone 50 MG TABLET. PO PRN (20:15)
[2020-10-09] MEDS: ATORVASTATIN CALCIUM 20 MG TABLET PO SCH (20:15)
--- NOTE | 2020-10-09 22:02 | PDOC ---
Exam Note: Fercho Note: Please also refer to the separate dictated note~for this date of service dictated separately.~Patient seen individually. Discussed the patient with Nursing staff reviewed the chart.~Reviewed interim history and current functioning. Reviewed vital signs,~Labs/ Radiology~and current medications noted below. Continue current treatment with the changes noted in the dictated addendum note Assessment: Vital Signs/I&O: Vital Signs Date Time Temp Pulse Resp B/P (MAP) Pulse Ox O2 Delivery O2 Flow Rate FiO2 10/09/20 15:14 97.4 69 18 97/64 (75) 97 Room Air I & O 10/08/20 10/08/20 10/09/20 14:59 22:59 06:59 Intake Total 600 ml 480 ml Balance 600 ml 480 ml Current Medications: Meds: Current Medications Medications (Trade) Dose Ordered Sig/Ashvin Route PRN Reason Start Time Stop Time Status Last Admin Dose Admin Acetaminophen (Tylenol) 650 mg PRN Q6HRS PRN PO MILD PAIN / TEMP > 100.3'F 08/24/20 18:15 09/04/20 08:58 Multi-Ingredient Ointment (Analgesic [place]) 1 césar PRN QID PRN TP MUSCLE PAIN 08/24/20 18:15 Al Hydroxide/Mg Hydroxide (Mylanta Plus Xs) 15 ml PRN AFTMEALHC PRN PO DYSPEPSIA 08/24/20 18:15 Magnesium Hydroxide (Milk Of Magnesia) 2,400 mg PRN QHS PRN PO CONSTIPATION 08/24/20 18:15 Aspirin (Aspirin Chewable) 81 mg DAILY PO 08/25/20 09:00 10/09/20 08:38 Cetirizine HCl (ZyrTEC) 10 mg DAILY08 PO 08/25/20 08:00 10/09/20 08:38 Donepezil HCl (Aricept) 23 mg QHS PO 08/24/20 21:00 08/28/20 15:38 DC 08/27/20 20:34 Fluoxetine HCl (PROzac) 20 mg DAILY PO 08/25/20 09:00 10/09/20 08:38 Lorazepam (Ativan) 1 mg PRN Q4HRS PRN PO ANXIETY / AGITATION 08/24/20 18:45 09/04/20 16:12 DC 09/04/20 01:29 Atorvastatin Calcium (Lipitor) 40 mg QHS PO 08/24/20 21:00 10/09/20 20:15 Pantoprazole Sodium (Protonix) 40 mg DAILY08 PO 08/25/20 08:00 10/09/20 08:38 Multivitamins/ Calcium (Thera-M Plus) 1 tab DAILY PO 08/25/20 09:00 10/09/20 08:38 Mupirocin (Bactroban) 1 césar BID92 TP 08/25/20 09:00 09/03/20 12:35 DC 09/01/20 14:00 Fish Oil (Fish Oil) 1,000 mg DAILY PO 08/25/20 09:00 10/09/20 08:38 Olanzapine (ZyPREXA ZYDIS) 2.5 mg PRN Q2HR PRN PO PSYCHOSIS 08/24/20 19:45 09/21/20 19:44 Sertraline HCl (Zoloft) 25 mg DAILY PO 08/26/20 09:00 08/28/20 21:00 DC 08/28/20 08:37 Sertraline HCl (Zoloft) 50 mg DAILY PO 08/29/20 09:00 09/06/20 18:40 DC 09/04/20 08:58 Tamsulosin HCl (Flomax) 0.4 mg QHS PO 08/28/20 21:00 10/09/20 20:14 Mupirocin (Bactroban) 1 césar PRN BID PRN TP RASH 09/03/20 12:45 Diphenhydramine HCl (Benadryl) 50 mg 1X ONCE PO 09/04/20 21:00 09/04/20 21:01 DC 09/04/20 21:21 Olanzapine (ZyPREXA ZYDIS) 5 mg 1X ONCE PO 09/27/20 18:30 09/27/20 18:31 DC 09/27/20 18:30 Divalproex Sodium (Depakote Sprinkles) 125 mg 0900,1700 PO 09/28/20 17:00 10/09/20 17:20 Furosemide (Lasix) 80 mg 1X ONCE PO 09/30/20 15:30 09/30/20 15:31 DC 09/30/20 16:00 Furosemide (Lasix) 80 mg DAILY PO 10/01/20 09:00 10/09/20 08:39 Potassium Chloride (Klor-Con) 20 meq DAILYWBKFT PO 10/01/20 08:00 10/09/20 08:38 Trazodone HCl (Desyrel) 50 mg PRN QHS PRN PO INSOMNIA 10/08/20 16:15 10/09/20 20:15 I have reviewed the current psychotropics carefully including drug interactions. Risk benefit ratio favors no change other than as noted in my dictated progress note. Diagnosis: Problems: (1) Impulse control disorder, unspecified (2) Anxiety disorder, unspecified (3) Dementia, vascular, with depression (4) Dementia, vascular, with delusions (5) Dementia in Alzheimer's disease with depression (6) Dementia in Alzheimer's disease with delusions (7) Dementia of the Alzheimer's type with early onset with behavioral disturbance (8) Major neurocognitive disorder VERENA AGUSTIN MD Oct 09, 2020 22:02
[2020-10-10 05:58] VITALS: BP 100/64
[2020-10-10 06:29] LABS: BASO # 0.1 x10^3/uL (0.0-0.2); BASO % 1 % (0-3); EOS # 0.3 x10^3/uL (0.0-0.7); EOS % 4 % (0-3); HEMATOCRIT 34.9 % (39.0-53.0); HEMOGLOBIN 11.4 g/dL (13.0-17.5); LYMPH # 1.7 x10^3/uL (1.0-4.8); LYMPH % 24 % (24-48); MEAN CORPUSCULAR HEMOGLOBIN 29 pg (25-35); MEAN CORPUSCULAR HGB CONC 33 g/dL (31-37); MEAN CORPUSCULAR VOLUME 89 fL (79-100); MONO # 0.7 x10^3/uL (0.0-1.1); MONO % 10 % (0-9); NEUT # 4.3 x10^3uL (1.8-7.7); NEUT % 61 % (31-73); PLATELET COUNT 205 x10^3/uL (140-400); RED BLOOD COUNT 3.92 x10^6/uL (4.30-5.70); RED CELL DISTRIBUTION WIDTH 14.4 % (11.5-14.5); WHITE BLOOD COUNT 7.1 x10^3/uL (4.0-11.0)
[2020-10-10 06:38] LABS: ALK PHOS 65 U/L (46-116); ALT (SGPT) 45 U/L (16-63); ANION GAP 5 (6-14); AST (SGOT) 28 U/L (15-37); BLOOD UREA NITROGEN 33 mg/dL (8-26); BUN/CREATININE RATIO 21 (6-20); CALCIUM 7.9 mg/dL (8.5-10.1); CARBON DIOXIDE 31 mmol/L (21-32); CHLORIDE 103 mmol/L (98-107); CREATININE 1.6 mg/dL (0.7-1.3); GFR 42.6; GLUCOSE 95 mg/dL (70-99); POTASSIUM 3.5 mmol/L (3.5-5.1); SODIUM 139 mmol/L (136-145); TOTAL BILIRUBIN 0.6 mg/dL (0.2-1.0); TOTAL PROTEIN 6.1 g/dL (6.4-8.2)
[2020-10-10 06:50] LABS: VAL ACID 16 mcg/mL (50-100)
[2020-10-10] MEDS: PANTOPRAZOLE 40 MG TABLET. PO SCH (08:22)
[2020-10-10] MEDS: POTASSIUM CHLORIDE 20 MEQ TABLET.ER. PO SCH (08:22)
[2020-10-10] MEDS: DIVALPROEX 125 MG CAP.SPRINK PO SCH ×2 (08:22→17:14)
[2020-10-10] MEDS: MULTIVITAMIN with MINERAL TABLET. PO SCH (08:22)
[2020-10-10] MEDS: ASPIRIN CHEWABLE 81 MG TABLET. PO SCH (08:22)
[2020-10-10] MEDS: OMEGA-3 FATTY ACIDS/FISH OIL 1,000 MG CAPSULE. PO SCH (08:22)
[2020-10-10] MEDS: CETIRIZINE HCL 10 MG TABLET PO SCH (08:22)
[2020-10-10] MEDS: FUROSEMIDE 40 MG TABLET PO SCH (08:23)
--- NOTE | 2020-10-10 08:27 | PDOC ---
Exam Note: Fercho Note: This note is a late entry for 10/09/2020 covers elements not covered in my initial note. Subjective: The patient was seen individually in the evening of 10/09/2020 with Mera ABREU, discussed and reviewed the chart. He slept 7-1/4 hours previous night. The patients visited him today and he did well during the visit. He has not been agitated or aggressive, remains confused, smiling, walking up and down the hallway. I met with him as he was standing beyond the nursing station looking into the central hollow of the building at the bottom of which there is a beautiful fountain, landscaping and plants and seem to be thoroughly enjoying this that is where we met this evening. He showed some recognition of all of this and when I mentioned this setting was pristine and ripe only for a missing piano, he seemed to smile and in fact seem to understand what I was saying. He does have expressive aphasia which makes it harder for him to expre ss himself causing the increased frustration. Review of Systems: No CV, , pulmonary, ENT system symptoms on review. Mental Status Exam: The patient is oriented to himself. Insight and judgment, recent and remote memory, attention and concentration fund of knowledge is poor consistent with his diagnoses. Laboratory Data: Reviewed. Impression: Major neurocognitive disorder Alzheimer vascular with delusion, depression, behavioral disturbance. Anxiety disorder unspecified. Impulse control disorder unspecified. Plan: Continue current psychotropics from initial note. Assessment: Vital Signs/I&O: Vital Signs Date Time Temp Pulse Resp B/P (MAP) Pulse Ox O2 Delivery O2 Flow Rate FiO2 10/10/20 05:58 97.6 62 16 100/64 (76) 96 10/09/20 15:14 Room Air I & O 10/09/20 10/09/20 10/10/20 15:00 23:00 07:00 Intake Total 480 ml 840 ml Balance 480 ml 840 ml Labs: Laboratory Tests Test 10/10/20 05:52 White Blood Count 7.1 x10^3/uL (4.0-11.0) Red Blood Count 3.92 x10^6/uL (4.30-5.70) L Hemoglobin 11.4 g/dL (13.0-17.5) L Hematocrit 34.9 % (39.0-53.0) L Mean Corpuscular Volume 89 fL (79-100) Mean Corpuscular Hemoglobin 29 pg (25-35) Mean Corpuscular Hemoglobin Concent 33 g/dL (31-37) Red Cell Distribution Width 14.4 % (11.5-14.5) Platelet Count 205 x10^3/uL (140-400) Neutrophils (%) (Auto) 61 % (31-73) Lymphocytes (%) (Auto) 24 % (24-48) Monocytes (%) (Auto) 10 % (0-9) H Eosinophils (%) (Auto) 4 % (0-3) H Basophils (%) (Auto) 1 % (0-3) Neutrophils # (Auto) 4.3 x10^3uL (1.8-7.7) Lymphocytes # (Auto) 1.7 x10^3/uL (1.0-4.8) Monocytes # (Auto) 0.7 x10^3/uL (0.0-1.1) Eosinophils # (Auto) 0.3 x10^3/uL (0.0-0.7) Basophils # (Auto) 0.1 x10^3/uL (0.0-0.2) Sodium Level 139 mmol/L (136-145) Potassium Level 3.5 mmol/L (3.5-5.1) Chloride Level 103 mmol/L (98-107) Carbon Dioxide Level 31 mmol/L (21-32) Anion Gap 5 (6-14) L Blood Urea Nitrogen 33 mg/dL (8-26) H Creatinine 1.6 mg/dL (0.7-1.3) H Estimated GFR (Cockcroft-Gault) 42.6 BUN/Creatinine Ratio 21 (6-20) H Glucose Level 95 mg/dL (70-99) Calcium Level 7.9 mg/dL (8.5-10.1) L Total Bilirubin 0.6 mg/dL (0.2-1.0) Aspartate Amino Transferase (AST) 28 U/L (15-37) Alanine Aminotransferase (ALT) 45 U/L (16-63) Alkaline Phosphatase 65 U/L (46-116) Total Protein 6.1 g/dL (6.4-8.2) L Albumin 3.0 g/dL (3.4-5.0) L Albumin/Globulin Ratio 1.0 (1.0-1.7) Valproic Acid Level 16 mcg/mL (50-100) L Valproic Acid Last Dose Date 10/09/20 Valproic Acid Last Dose Time 1700 Current Medications: Meds: Laboratory Tests Test 10/10/20 05:52 White Blood Count 7.1 x10^3/uL Red Blood Count 3.92 x10^6/uL Hemoglobin 11.4 g/dL Hematocrit 34.9 % Mean Corpuscular Volume 89 fL Mean Corpuscular Hemoglobin 29 pg Mean Corpuscular Hemoglobin Concent 33 g/dL Red Cell Distribution Width 14.4 % Platelet Count 205 x10^3/uL Neutrophils (%) (Auto) 61 % Lymphocytes (%) (Auto) 24 % Monocytes (%) (Auto) 10 % Eosinophils (%) (Auto) 4 % Basophils (%) (Auto) 1 % Neutrophils # (Auto) 4.3 x10^3uL Lymphocytes # (Auto) 1.7 x10^3/uL Monocytes # (Auto) 0.7 x10^3/uL Eosinophils # (Auto) 0.3 x10^3/uL Basophils # (Auto) 0.1 x10^3/uL Sodium Level 139 mmol/L Potassium Level 3.5 mmol/L Chloride Level 103 mmol/L Carbon Dioxide Level 31 mmol/L Anion Gap 5 Blood Urea Nitrogen 33 mg/dL Creatinine 1.6 mg/dL Estimated GFR (Cockcroft-Gault) 42.6 BUN/Creatinine Ratio 21 Glucose Level 95 mg/dL Calcium Level 7.9 mg/dL Total Bilirubin 0.6 mg/dL Aspartate Amino Transf (AST/SGOT) 28 U/L Alanine Aminotransferase (ALT/SGPT) 45 U/L Alkaline Phosphatase 65 U/L Total Protein 6.1 g/dL Albumin 3.0 g/dL Albumin/Globulin Ratio 1.0 Valproic Acid (Depakene) Level 16 mcg/mL Valproic Acid Last Dose Date 10/09/20 Valproic Acid Last Dose Time 1700 Current Medications Medications (Trade) Dose Ordered Sig/Ashvin Route PRN Reason Start Time Stop Time Status Last Admin Dose Admin Acetaminophen (Tylenol) 650 mg PRN Q6HRS PRN PO MILD PAIN / TEMP > 100.3'F 08/24/20 18:15 09/04/20 08:58 Multi-Ingredient Ointment (Analgesic [place]) 1 césar PRN QID PRN TP MUSCLE PAIN 08/24/20 18:15 Al Hydroxide/Mg Hydroxide (Mylanta Plus Xs) 15 ml PRN AFTMEALHC PRN PO DYSPEPSIA 08/24/20 18:15 Magnesium Hydroxide (Milk Of Magnesia) 2,400 mg PRN QHS PRN PO CONSTIPATION 08/24/20 18:15 Aspirin (Aspirin Chewable) 81 mg DAILY PO 08/25/20 09:00 10/09/20 08:38 Cetirizine HCl (ZyrTEC) 10 mg DAILY08 PO 08/25/20 08:00 10/09/20 08:38 Donepezil HCl (Aricept) 23 mg QHS PO 08/24/20 21:00 08/28/20 15:38 DC 08/27/20 20:34 Fluoxetine HCl (PROzac) 20 mg DAILY PO 08/25/20 09:00 10/09/20 08:38 Lorazepam (Ativan) 1 mg PRN Q4HRS PRN PO ANXIETY / AGITATION 08/24/20 18:45 09/04/20 16:12 DC 09/04/20 01:29 Atorvastatin Calcium (Lipitor) 40 mg QHS PO 08/24/20 21:00 10/09/20 20:15 Pantoprazole Sodium (Protonix) 40 mg DAILY08 PO 08/25/20 08:00 10/09/20 08:38 Multivitamins/ Calcium (Thera-M Plus) 1 tab DAILY PO 08/25/20 09:00 10/09/20 08:38 Mupirocin (Bactroban) 1 césar BID92 TP 08/25/20 09:00 09/03/20 12:35 DC 09/01/20 14:00 Fish Oil (Fish Oil) 1,000 mg DAILY PO 08/25/20 09:00 10/09/20 08:38 Olanzapine (ZyPREXA ZYDIS) 2.5 mg PRN Q2HR PRN PO PSYCHOSIS 08/24/20 19:45 09/21/20 19:44 Sertraline HCl (Zoloft) 25 mg DAILY PO 08/26/20 09:00 08/28/20 21:00 DC 08/28/20 08:37 Sertraline HCl (Zoloft) 50 mg DAILY PO 08/29/20 09:00 09/06/20 18:40 DC 09/04/20 08:58 Tamsulosin HCl (Flomax) 0.4 mg QHS PO 08/28/20 21:00 10/09/20 20:14 Mupirocin (Bactroban) 1 césar PRN BID PRN TP RASH 09/03/20 12:45 Diphenhydramine HCl (Benadryl) 50 mg 1X ONCE PO 09/04/20 21:00 09/04/20 21:01 DC 09/04/20 21:21 Olanzapine (ZyPREXA ZYDIS) 5 mg 1X ONCE PO 09/27/20 18:30 09/27/20 18:31 DC 09/27/20 18:30 Divalproex Sodium (Depakote Sprinkles) 125 mg 0900,1700 PO 09/28/20 17:00 10/09/20 17:20 Furosemide (Lasix) 80 mg 1X ONCE PO 09/30/20 15:30 09/30/20 15:31 DC 09/30/20 16:00 Furosemide (Lasix) 80 mg DAILY PO 10/01/20 09:00 10/09/20 08:39 Potassium Chloride (Klor-Con) 20 meq DAILYWBKFT PO 10/01/20 08:00 10/09/20 08:38 Trazodone HCl (Desyrel) 50 mg PRN QHS PRN PO INSOMNIA 10/08/20 16:15 10/09/20 20:15 I have reviewed the current psychotropics carefully including drug interactions. Risk benefit ratio favors no change other than as noted in my dictated progress note. Diagnosis: Problems: (1) Impulse control disorder, unspecified (2) Anxiety disorder, unspecified (3) Dementia, vascular, with depression (4) Dementia, vascular, with delusions (5) Dementia in Alzheimer's disease with depression (6) Dementia in Alzheimer's disease with delusions (7) Dementia of the Alzheimer's type with early onset with behavioral disturbance (8) Major neurocognitive disorder VERENA AGUSTIN MD Oct 10, 2020 08:27
[2020-10-10 15:28] VITALS: BP 108/66
[2020-10-10] MEDS: ATORVASTATIN CALCIUM 20 MG TABLET PO SCH (19:54)
[2020-10-10] MEDS: TAMSULOSIN 0.4 MG CAP.ER.24H. PO SCH (19:54)
--- NOTE | 2020-10-10 21:48 | PDOC ---
Exam Note: Fercho Note: Please also refer to the separate dictated note~for this date of service dictated separately.~Patient seen individually. Discussed the patient with Nursing staff reviewed the chart.~Reviewed interim history and current functioning. Reviewed vital signs,~Labs/ Radiology~and current medications noted below. Continue current treatment with the changes noted in the dictated addendum note Assessment: Vital Signs/I&O: Vital Signs Date Time Temp Pulse Resp B/P (MAP) Pulse Ox O2 Delivery O2 Flow Rate FiO2 10/10/20 15:28 98.6 68 16 108/66 (80) 98 10/09/20 15:14 Room Air I & O 10/09/20 10/09/20 10/10/20 15:00 23:00 07:00 Intake Total 480 ml 840 ml Balance 480 ml 840 ml Labs: Laboratory Tests Test 10/10/20 05:52 White Blood Count 7.1 x10^3/uL (4.0-11.0) Red Blood Count 3.92 x10^6/uL (4.30-5.70) L Hemoglobin 11.4 g/dL (13.0-17.5) L Hematocrit 34.9 % (39.0-53.0) L Mean Corpuscular Volume 89 fL (79-100) Mean Corpuscular Hemoglobin 29 pg (25-35) Mean Corpuscular Hemoglobin Concent 33 g/dL (31-37) Red Cell Distribution Width 14.4 % (11.5-14.5) Platelet Count 205 x10^3/uL (140-400) Neutrophils (%) (Auto) 61 % (31-73) Lymphocytes (%) (Auto) 24 % (24-48) Monocytes (%) (Auto) 10 % (0-9) H Eosinophils (%) (Auto) 4 % (0-3) H Basophils (%) (Auto) 1 % (0-3) Neutrophils # (Auto) 4.3 x10^3uL (1.8-7.7) Lymphocytes # (Auto) 1.7 x10^3/uL (1.0-4.8) Monocytes # (Auto) 0.7 x10^3/uL (0.0-1.1) Eosinophils # (Auto) 0.3 x10^3/uL (0.0-0.7) Basophils # (Auto) 0.1 x10^3/uL (0.0-0.2) Sodium Level 139 mmol/L (136-145) Potassium Level 3.5 mmol/L (3.5-5.1) Chloride Level 103 mmol/L (98-107) Carbon Dioxide Level 31 mmol/L (21-32) Anion Gap 5 (6-14) L Blood Urea Nitrogen 33 mg/dL (8-26) H Creatinine 1.6 mg/dL (0.7-1.3) H Estimated GFR (Cockcroft-Gault) 42.6 BUN/Creatinine Ratio 21 (6-20) H Glucose Level 95 mg/dL (70-99) Calcium Level 7.9 mg/dL (8.5-10.1) L Total Bilirubin 0.6 mg/dL (0.2-1.0) Aspartate Amino Transferase (AST) 28 U/L (15-37) Alanine Aminotransferase (ALT) 45 U/L (16-63) Alkaline Phosphatase 65 U/L (46-116) Total Protein 6.1 g/dL (6.4-8.2) L Albumin 3.0 g/dL (3.4-5.0) L Albumin/Globulin Ratio 1.0 (1.0-1.7) Valproic Acid Level 16 mcg/mL (50-100) L Valproic Acid Last Dose Date 10/09/20 Valproic Acid Last Dose Time 1700 Current Medications: Meds: Laboratory Tests Test 10/10/20 05:52 White Blood Count 7.1 x10^3/uL Red Blood Count 3.92 x10^6/uL Hemoglobin 11.4 g/dL Hematocrit 34.9 % Mean Corpuscular Volume 89 fL Mean Corpuscular Hemoglobin 29 pg Mean Corpuscular Hemoglobin Concent 33 g/dL Red Cell Distribution Width 14.4 % Platelet Count 205 x10^3/uL Neutrophils (%) (Auto) 61 % Lymphocytes (%) (Auto) 24 % Monocytes (%) (Auto) 10 % Eosinophils (%) (Auto) 4 % Basophils (%) (Auto) 1 % Neutrophils # (Auto) 4.3 x10^3uL Lymphocytes # (Auto) 1.7 x10^3/uL Monocytes # (Auto) 0.7 x10^3/uL Eosinophils # (Auto) 0.3 x10^3/uL Basophils # (Auto) 0.1 x10^3/uL Sodium Level 139 mmol/L Potassium Level 3.5 mmol/L Chloride Level 103 mmol/L Carbon Dioxide Level 31 mmol/L Anion Gap 5 Blood Urea Nitrogen 33 mg/dL Creatinine 1.6 mg/dL Estimated GFR (Cockcroft-Gault) 42.6 BUN/Creatinine Ratio 21 Glucose Level 95 mg/dL Calcium Level 7.9 mg/dL Total Bilirubin 0.6 mg/dL Aspartate Amino Transf (AST/SGOT) 28 U/L Alanine Aminotransferase (ALT/SGPT) 45 U/L Alkaline Phosphatase 65 U/L Total Protein 6.1 g/dL Albumin 3.0 g/dL Albumin/Globulin Ratio 1.0 Valproic Acid (Depakene) Level 16 mcg/mL Valproic Acid Last Dose Date 10/09/20 Valproic Acid Last Dose Time 1700 Current Medications Medications (Trade) Dose Ordered Sig/Ashvin Route PRN Reason Start Time Stop Time Status Last Admin Dose Admin Acetaminophen (Tylenol) 650 mg PRN Q6HRS PRN PO MILD PAIN / TEMP > 100.3'F 08/24/20 18:15 09/04/20 08:58 Multi-Ingredient Ointment (Analgesic [place]) 1 césar PRN QID PRN TP MUSCLE PAIN 08/24/20 18:15 Al Hydroxide/Mg Hydroxide (Mylanta Plus Xs) 15 ml PRN AFTMEALHC PRN PO DYSPEPSIA 08/24/20 18:15 Magnesium Hydroxide (Milk Of Magnesia) 2,400 mg PRN QHS PRN PO CONSTIPATION 08/24/20 18:15 Aspirin (Aspirin Chewable) 81 mg DAILY PO 08/25/20 09:00 10/10/20 08:22 Cetirizine HCl (ZyrTEC) 10 mg DAILY08 PO 08/25/20 08:00 10/10/20 08:22 Donepezil HCl (Aricept) 23 mg QHS PO 08/24/20 21:00 08/28/20 15:38 DC 08/27/20 20:34 Fluoxetine HCl (PROzac) 20 mg DAILY PO 08/25/20 09:00 10/10/20 08:22 Lorazepam (Ativan) 1 mg PRN Q4HRS PRN PO ANXIETY / AGITATION 08/24/20 18:45 09/04/20 16:12 DC 09/04/20 01:29 Atorvastatin Calcium (Lipitor) 40 mg QHS PO 08/24/20 21:00 10/10/20 19:54 Pantoprazole Sodium (Protonix) 40 mg DAILY08 PO 08/25/20 08:00 10/10/20 08:22 Multivitamins/ Calcium (Thera-M Plus) 1 tab DAILY PO 08/25/20 09:00 10/10/20 08:22 Mupirocin (Bactroban) 1 césar BID92 TP 08/25/20 09:00 09/03/20 12:35 DC 09/01/20 14:00 Fish Oil (Fish Oil) 1,000 mg DAILY PO 08/25/20 09:00 10/10/20 08:22 Olanzapine (ZyPREXA ZYDIS) 2.5 mg PRN Q2HR PRN PO PSYCHOSIS 08/24/20 19:45 09/21/20 19:44 Sertraline HCl (Zoloft) 25 mg DAILY PO 08/26/20 09:00 08/28/20 21:00 DC 08/28/20 08:37 Sertraline HCl (Zoloft) 50 mg DAILY PO 08/29/20 09:00 09/06/20 18:40 DC 09/04/20 08:58 Tamsulosin HCl (Flomax) 0.4 mg QHS PO 08/28/20 21:00 10/10/20 19:54 Mupirocin (Bactroban) 1 césar PRN BID PRN TP RASH 09/03/20 12:45 Diphenhydramine HCl (Benadryl) 50 mg 1X ONCE PO 09/04/20 21:00 09/04/20 21:01 DC 09/04/20 21:21 Olanzapine (ZyPREXA ZYDIS) 5 mg 1X ONCE PO 09/27/20 18:30 09/27/20 18:31 DC 09/27/20 18:30 Divalproex Sodium (Depakote Sprinkles) 125 mg 0900,1700 PO 09/28/20 17:00 10/10/20 17:14 Furosemide (Lasix) 80 mg 1X ONCE PO 09/30/20 15:30 09/30/20 15:31 DC 09/30/20 16:00 Furosemide (Lasix) 80 mg DAILY PO 10/01/20 09:00 10/10/20 08:23 Potassium Chloride (Klor-Con) 20 meq DAILYWBKFT PO 10/01/20 08:00 10/10/20 08:22 Trazodone HCl (Desyrel) 50 mg PRN QHS PRN PO INSOMNIA 10/08/20 16:15 10/09/20 20:15 I have reviewed the current psychotropics carefully including drug interactions. Risk benefit ratio favors no change other than as noted in my dictated progress note. Diagnosis: Problems: (1) Impulse control disorder, unspecified (2) Anxiety disorder, unspecified (3) Dementia, vascular, with depression (4) Dementia, vascular, with delusions (5) Dementia in Alzheimer's disease with depression (6) Dementia in Alzheimer's disease with delusions (7) Dementia of the Alzheimer's type with early onset with behavioral disturbance (8) Major neurocognitive disorder VERENA AGUSTIN MD Oct 10, 2020 21:48
[2020-10-11 06:07] VITALS: BP 110/57
[2020-10-11] MEDS: PANTOPRAZOLE 40 MG TABLET. PO SCH (08:16)
[2020-10-11] MEDS: CETIRIZINE HCL 10 MG TABLET PO SCH (08:17)
[2020-10-11] MEDS: DIVALPROEX 125 MG CAP.SPRINK PO SCH ×2 (08:17→17:12)
[2020-10-11] MEDS: FUROSEMIDE 40 MG TABLET PO SCH (08:17)
[2020-10-11] MEDS: POTASSIUM CHLORIDE 20 MEQ TABLET.ER. PO SCH (08:17)
[2020-10-11] MEDS: MULTIVITAMIN with MINERAL TABLET. PO SCH (08:17)
[2020-10-11] MEDS: ASPIRIN CHEWABLE 81 MG TABLET. PO SCH (08:17)
[2020-10-11] MEDS: OMEGA-3 FATTY ACIDS/FISH OIL 1,000 MG CAPSULE. PO SCH (08:17)
[2020-10-11 15:46] VITALS: BP 102/65
[2020-10-11] MEDS: ATORVASTATIN CALCIUM 20 MG TABLET PO SCH (20:19)
[2020-10-11] MEDS: TAMSULOSIN 0.4 MG CAP.ER.24H. PO SCH (20:19)
--- NOTE | 2020-10-11 21:57 | PDOC ---
Exam Note: Fercho Note: Please also refer to the separate dictated note~for this date of service dictated separately.~Patient seen individually. Discussed the patient with Nursing staff reviewed the chart.~Reviewed interim history and current functioning. Reviewed vital signs,~Labs/ Radiology~and current medications noted below. Continue current treatment with the changes noted in the dictated addendum note Assessment: Vital Signs/I&O: Vital Signs Date Time Temp Pulse Resp B/P (MAP) Pulse Ox O2 Delivery O2 Flow Rate FiO2 10/11/20 15:46 97.9 78 16 102/65 (77) 97 10/09/20 15:14 Room Air I & O 10/10/20 10/10/20 10/11/20 15:00 23:00 07:00 Intake Total 840 ml 240 ml 240 ml Balance 840 ml 240 ml 240 ml Current Medications: Meds: Current Medications Medications (Trade) Dose Ordered Sig/Ashvin Route PRN Reason Start Time Stop Time Status Last Admin Dose Admin Acetaminophen (Tylenol) 650 mg PRN Q6HRS PRN PO MILD PAIN / TEMP > 100.3'F 08/24/20 18:15 09/04/20 08:58 Multi-Ingredient Ointment (Analgesic [place]) 1 césar PRN QID PRN TP MUSCLE PAIN 08/24/20 18:15 Al Hydroxide/Mg Hydroxide (Mylanta Plus Xs) 15 ml PRN AFTMEALHC PRN PO DYSPEPSIA 08/24/20 18:15 Magnesium Hydroxide (Milk Of Magnesia) 2,400 mg PRN QHS PRN PO CONSTIPATION 08/24/20 18:15 Aspirin (Aspirin Chewable) 81 mg DAILY PO 08/25/20 09:00 10/11/20 08:17 Cetirizine HCl (ZyrTEC) 10 mg DAILY08 PO 08/25/20 08:00 10/11/20 08:17 Donepezil HCl (Aricept) 23 mg QHS PO 08/24/20 21:00 08/28/20 15:38 DC 08/27/20 20:34 Fluoxetine HCl (PROzac) 20 mg DAILY PO 08/25/20 09:00 10/11/20 08:17 Lorazepam (Ativan) 1 mg PRN Q4HRS PRN PO ANXIETY / AGITATION 08/24/20 18:45 09/04/20 16:12 DC 09/04/20 01:29 Atorvastatin Calcium (Lipitor) 40 mg QHS PO 08/24/20 21:00 10/11/20 20:19 Pantoprazole Sodium (Protonix) 40 mg DAILY08 PO 08/25/20 08:00 10/11/20 08:16 Multivitamins/ Calcium (Thera-M Plus) 1 tab DAILY PO 08/25/20 09:00 10/11/20 08:17 Mupirocin (Bactroban) 1 césar BID92 TP 08/25/20 09:00 09/03/20 12:35 DC 09/01/20 14:00 Fish Oil (Fish Oil) 1,000 mg DAILY PO 08/25/20 09:00 10/11/20 08:17 Olanzapine (ZyPREXA ZYDIS) 2.5 mg PRN Q2HR PRN PO PSYCHOSIS 08/24/20 19:45 09/21/20 19:44 Sertraline HCl (Zoloft) 25 mg DAILY PO 08/26/20 09:00 08/28/20 21:00 DC 08/28/20 08:37 Sertraline HCl (Zoloft) 50 mg DAILY PO 08/29/20 09:00 09/06/20 18:40 DC 09/04/20 08:58 Tamsulosin HCl (Flomax) 0.4 mg QHS PO 08/28/20 21:00 10/11/20 20:19 Mupirocin (Bactroban) 1 césar PRN BID PRN TP RASH 09/03/20 12:45 Diphenhydramine HCl (Benadryl) 50 mg 1X ONCE PO 09/04/20 21:00 09/04/20 21:01 DC 09/04/20 21:21 Olanzapine (ZyPREXA ZYDIS) 5 mg 1X ONCE PO 09/27/20 18:30 09/27/20 18:31 DC 09/27/20 18:30 Divalproex Sodium (Depakote Sprinkles) 125 mg 0900,1700 PO 09/28/20 17:00 10/11/20 17:12 Furosemide (Lasix) 80 mg 1X ONCE PO 09/30/20 15:30 09/30/20 15:31 DC 09/30/20 16:00 Furosemide (Lasix) 80 mg DAILY PO 10/01/20 09:00 10/11/20 08:17 Potassium Chloride (Klor-Con) 20 meq DAILYWBKFT PO 10/01/20 08:00 10/11/20 08:17 Trazodone HCl (Desyrel) 50 mg PRN QHS PRN PO INSOMNIA 10/08/20 16:15 10/09/20 20:15 I have reviewed the current psychotropics carefully including drug interactions. Risk benefit ratio favors no change other than as noted in my dictated progress note. Diagnosis: Problems: (1) Impulse control disorder, unspecified (2) Anxiety disorder, unspecified (3) Dementia, vascular, with depression (4) Dementia, vascular, with delusions (5) Dementia in Alzheimer's disease with depression (6) Dementia in Alzheimer's disease with delusions (7) Dementia of the Alzheimer's type with early onset with behavioral disturbance (8) Major neurocognitive disorder VERENA AGUSTIN MD Oct 11, 2020 21:57
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
[2020-10-12 05:43] VITALS: BP 108/62
--- NOTE | 2020-10-12 07:45 | PDOC ---
Exam Note: Fercho Note: This note is a late entry for 10/10/2020 covers elements not covered in my initial note. Subjective: The patient was seen individually in the evening of 10/10/2020 with Mera ABREU, discussed and reviewed the chart. He slept 6-1/4 hours previous night. Valproic acid level is 16 subtherapeutic but despite this he is doing reasonably well, does not need an increase in the Depakote. Discussed the patients progress at length and social service staff is actively trying to find placement for the patient. Clinically he can be transitioned as soon as appropriate placement is found. Review of Systems: No CV, , pulmonary, ENT system symptoms on review. Mental Status Exam: The patient is oriented to himself. He is pleasant, smiling as I met with him and then he walked with me in the hallway after our visit. Insight and judgment, recent and remote memory, attention and concentration fund of knowledge is poor consistent with his diagnoses. Often verbal responses monosyllabic. Laboratory Data: Reviewed. Impression: Major neurocognitive disorder Alzheimer vascular with delusion, depression, behavioral disturbance. Anxiety disorder unspecified. Impulse control disorder unspecified. Plan: Continue current psychotropics from initial note. Assessment: Vital Signs/I&O: Vital Signs Date Time Temp Pulse Resp B/P (MAP) Pulse Ox O2 Delivery O2 Flow Rate FiO2 10/12/20 05:43 97.4 64 18 108/62 (77) 98 10/09/20 15:14 Room Air I & O 10/11/20 10/11/20 10/12/20 15:00 23:00 07:00 Intake Total 720 ml 240 ml 240 ml Balance 720 ml 240 ml 240 ml Current Medications: Meds: Current Medications Medications (Trade) Dose Ordered Sig/Ashvin Route PRN Reason Start Time Stop Time Status Last Admin Dose Admin Acetaminophen (Tylenol) 650 mg PRN Q6HRS PRN PO MILD PAIN / TEMP > 100.3'F 08/24/20 18:15 09/04/20 08:58 Multi-Ingredient Ointment (Analgesic [place]) 1 césar PRN QID PRN TP MUSCLE PAIN 08/24/20 18:15 Al Hydroxide/Mg Hydroxide (Mylanta Plus Xs) 15 ml PRN AFTMEALHC PRN PO DYSPEPSIA 08/24/20 18:15 Magnesium Hydroxide (Milk Of Magnesia) 2,400 mg PRN QHS PRN PO CONSTIPATION 08/24/20 18:15 Aspirin (Aspirin Chewable) 81 mg DAILY PO 08/25/20 09:00 10/11/20 08:17 Cetirizine HCl (ZyrTEC) 10 mg DAILY08 PO 08/25/20 08:00 10/11/20 08:17 Donepezil HCl (Aricept) 23 mg QHS PO 08/24/20 21:00 08/28/20 15:38 DC 08/27/20 20:34 Fluoxetine HCl (PROzac) 20 mg DAILY PO 08/25/20 09:00 10/11/20 08:17 Lorazepam (Ativan) 1 mg PRN Q4HRS PRN PO ANXIETY / AGITATION 08/24/20 18:45 09/04/20 16:12 DC 09/04/20 01:29 Atorvastatin Calcium (Lipitor) 40 mg QHS PO 08/24/20 21:00 10/11/20 20:19 Pantoprazole Sodium (Protonix) 40 mg DAILY08 PO 08/25/20 08:00 10/11/20 08:16 Multivitamins/ Calcium (Thera-M Plus) 1 tab DAILY PO 08/25/20 09:00 10/11/20 08:17 Mupirocin (Bactroban) 1 césar BID92 TP 08/25/20 09:00 09/03/20 12:35 DC 09/01/20 14:00 Fish Oil (Fish Oil) 1,000 mg DAILY PO 08/25/20 09:00 10/11/20 08:17 Olanzapine (ZyPREXA ZYDIS) 2.5 mg PRN Q2HR PRN PO PSYCHOSIS 08/24/20 19:45 09/21/20 19:44 Sertraline HCl (Zoloft) 25 mg DAILY PO 08/26/20 09:00 08/28/20 21:00 DC 08/28/20 08:37 Sertraline HCl (Zoloft) 50 mg DAILY PO 08/29/20 09:00 09/06/20 18:40 DC 09/04/20 08:58 Tamsulosin HCl (Flomax) 0.4 mg QHS PO 08/28/20 21:00 10/11/20 20:19 Mupirocin (Bactroban) 1 césar PRN BID PRN TP RASH 09/03/20 12:45 Diphenhydramine HCl (Benadryl) 50 mg 1X ONCE PO 09/04/20 21:00 09/04/20 21:01 DC 09/04/20 21:21 Olanzapine (ZyPREXA ZYDIS) 5 mg 1X ONCE PO 09/27/20 18:30 09/27/20 18:31 DC 09/27/20 18:30 Divalproex Sodium (Depakote Sprinkles) 125 mg 0900,1700 PO 09/28/20 17:00 10/11/20 17:12 Furosemide (Lasix) 80 mg 1X ONCE PO 09/30/20 15:30 09/30/20 15:31 DC 09/30/20 16:00 Furosemide (Lasix) 80 mg DAILY PO 10/01/20 09:00 10/11/20 08:17 Potassium Chloride (Klor-Con) 20 meq DAILYWBKFT PO 10/01/20 08:00 10/11/20 08:17 Trazodone HCl (Desyrel) 50 mg PRN QHS PRN PO INSOMNIA 10/08/20 16:15 10/09/20 20:15 I have reviewed the current psychotropics carefully including drug interactions. Risk benefit ratio favors no change other than as noted in my dictated progress note. Diagnosis: Problems: (1) Impulse control disorder, unspecified (2) Anxiety disorder, unspecified (3) Dementia, vascular, with depression (4) Dementia, vascular, with delusions (5) Dementia in Alzheimer's disease with depression (6) Dementia in Alzheimer's disease with delusions (7) Dementia of the Alzheimer's type with early onset with behavioral disturbance (8) Major neurocognitive disorder VERENA AGUSTIN MD Oct 12, 2020 07:45
--- NOTE | 2020-10-12 08:14 | PDOC ---
Exam Note: Fercho Note: This note is a late entry for 10/11/2020 covers elements not covered in my initial note. Subjective: The patient was seen individually in the evening of 10/11/2020 with Tala ABREU, discussed and reviewed the chart. He slept 6 hours previous night. I was asked by the nursing staff to dictate an addendum to the admission history to help facilitate group home placement and I have dictated that addendum today via dictation # [id number]. Review of Systems: No CV, , pulmonary, ENT system symptoms on review. Mental Status Exam: The patient is oriented to himself. Insight and judgment, recent and remote memory, attention and concentration fund of knowledge is poor consistent with his diagnoses. Laboratory Data: Reviewed. Impression: Major neurocognitive disorder Alzheimer vascular with delusion, depression, behavioral disturbance. Anxiety disorder unspecified. Impulse control disorder unspecified. Plan: Continue current psychotropics from initial note. Assessment: Vital Signs/I&O: Vital Signs Date Time Temp Pulse Resp B/P (MAP) Pulse Ox O2 Delivery O2 Flow Rate FiO2 10/12/20 05:43 97.4 64 18 108/62 (77) 98 10/09/20 15:14 Room Air I & O 10/11/20 10/11/20 10/12/20 14:59 22:59 06:59 Intake Total 720 ml 240 ml 240 ml Balance 720 ml 240 ml 240 ml Current Medications: Meds: Current Medications Medications (Trade) Dose Ordered Sig/Ashvin Route PRN Reason Start Time Stop Time Status Last Admin Dose Admin Acetaminophen (Tylenol) 650 mg PRN Q6HRS PRN PO MILD PAIN / TEMP > 100.3'F 08/24/20 18:15 09/04/20 08:58 Multi-Ingredient Ointment (Analgesic [place]) 1 césar PRN QID PRN TP MUSCLE PAIN 08/24/20 18:15 Al Hydroxide/Mg Hydroxide (Mylanta Plus Xs) 15 ml PRN AFTMEALHC PRN PO DYSPEPSIA 08/24/20 18:15 Magnesium Hydroxide (Milk Of Magnesia) 2,400 mg PRN QHS PRN PO CONSTIPATION 08/24/20 18:15 Aspirin (Aspirin Chewable) 81 mg DAILY PO 08/25/20 09:00 10/11/20 08:17 Cetirizine HCl (ZyrTEC) 10 mg DAILY08 PO 08/25/20 08:00 10/11/20 08:17 Donepezil HCl (Aricept) 23 mg QHS PO 08/24/20 21:00 08/28/20 15:38 DC 08/27/20 20:34 Fluoxetine HCl (PROzac) 20 mg DAILY PO 08/25/20 09:00 10/11/20 08:17 Lorazepam (Ativan) 1 mg PRN Q4HRS PRN PO ANXIETY / AGITATION 08/24/20 18:45 09/04/20 16:12 DC 09/04/20 01:29 Atorvastatin Calcium (Lipitor) 40 mg QHS PO 08/24/20 21:00 10/11/20 20:19 Pantoprazole Sodium (Protonix) 40 mg DAILY08 PO 08/25/20 08:00 10/11/20 08:16 Multivitamins/ Calcium (Thera-M Plus) 1 tab DAILY PO 08/25/20 09:00 10/11/20 08:17 Mupirocin (Bactroban) 1 césar BID92 TP 08/25/20 09:00 09/03/20 12:35 DC 09/01/20 14:00 Fish Oil (Fish Oil) 1,000 mg DAILY PO 08/25/20 09:00 10/11/20 08:17 Olanzapine (ZyPREXA ZYDIS) 2.5 mg PRN Q2HR PRN PO PSYCHOSIS 08/24/20 19:45 09/21/20 19:44 Sertraline HCl (Zoloft) 25 mg DAILY PO 08/26/20 09:00 08/28/20 21:00 DC 08/28/20 08:37 Sertraline HCl (Zoloft) 50 mg DAILY PO 08/29/20 09:00 09/06/20 18:40 DC 09/04/20 08:58 Tamsulosin HCl (Flomax) 0.4 mg QHS PO 08/28/20 21:00 10/11/20 20:19 Mupirocin (Bactroban) 1 césar PRN BID PRN TP RASH 09/03/20 12:45 Diphenhydramine HCl (Benadryl) 50 mg 1X ONCE PO 09/04/20 21:00 09/04/20 21:01 DC 09/04/20 21:21 Olanzapine (ZyPREXA ZYDIS) 5 mg 1X ONCE PO 09/27/20 18:30 09/27/20 18:31 DC 09/27/20 18:30 Divalproex Sodium (Depakote Sprinkles) 125 mg 0900,1700 PO 09/28/20 17:00 10/11/20 17:12 Furosemide (Lasix) 80 mg 1X ONCE PO 09/30/20 15:30 09/30/20 15:31 DC 09/30/20 16:00 Furosemide (Lasix) 80 mg DAILY PO 10/01/20 09:00 10/11/20 08:17 Potassium Chloride (Klor-Con) 20 meq DAILYWBKFT PO 10/01/20 08:00 10/11/20 08:17 Trazodone HCl (Desyrel) 50 mg PRN QHS PRN PO INSOMNIA 10/08/20 16:15 10/09/20 20:15 I have reviewed the current psychotropics carefully including drug interactions. Risk benefit ratio favors no change other than as noted in my dictated progress note. Diagnosis: Problems: (1) Impulse control disorder, unspecified (2) Anxiety disorder, unspecified (3) Dementia, vascular, with depression (4) Dementia, vascular, with delusions (5) Dementia in Alzheimer's disease with depression (6) Dementia in Alzheimer's disease with delusions (7) Dementia of the Alzheimer's type with early onset with behavioral disturbance (8) Major neurocognitive disorder VERENA AGUSTIN MD Oct 12, 2020 08:14
[2020-10-12] MEDS: OMEGA-3 FATTY ACIDS/FISH OIL 1,000 MG CAPSULE. PO SCH (08:18)
[2020-10-12] MEDS: DIVALPROEX 125 MG CAP.SPRINK PO SCH ×3 (08:18→20:16)
[2020-10-12] MEDS: ASPIRIN CHEWABLE 81 MG TABLET. PO SCH (08:18)
[2020-10-12] MEDS: POTASSIUM CHLORIDE 20 MEQ TABLET.ER. PO SCH (08:18)
[2020-10-12] MEDS: CETIRIZINE HCL 10 MG TABLET PO SCH (08:19)
[2020-10-12] MEDS: FUROSEMIDE 40 MG TABLET PO SCH (08:19)
[2020-10-12] MEDS: PANTOPRAZOLE 40 MG TABLET. PO SCH (08:19)
[2020-10-12] MEDS: MULTIVITAMIN with MINERAL TABLET. PO SCH (08:19)
[2020-10-12 15:48] VITALS: BP 111/73
[2020-10-12] MEDS: TAMSULOSIN 0.4 MG CAP.ER.24H. PO SCH (20:15)
[2020-10-12] MEDS: ATORVASTATIN CALCIUM 20 MG TABLET PO SCH (20:15)
--- NOTE | 2020-10-12 21:49 | PDOC ---
Exam Note: Fercho Note: Please also refer to the separate dictated note~for this date of service dictated separately.~Patient seen individually. Discussed the patient with Nursing staff reviewed the chart.~Reviewed interim history and current functioning. Reviewed vital signs,~Labs/ Radiology~and current medications noted below. Continue current treatment with the changes noted in the dictated addendum note Assessment: Vital Signs/I&O: Vital Signs Date Time Temp Pulse Resp B/P (MAP) Pulse Ox O2 Delivery O2 Flow Rate FiO2 10/12/20 15:48 98.3 86 18 111/73 (86) 95 10/09/20 15:14 Room Air I & O 10/11/20 10/11/20 10/12/20 15:00 23:00 07:00 Intake Total 720 ml 240 ml 240 ml Balance 720 ml 240 ml 240 ml Current Medications: Meds: Current Medications Medications (Trade) Dose Ordered Sig/Ashvin Route PRN Reason Start Time Stop Time Status Last Admin Dose Admin Acetaminophen (Tylenol) 650 mg PRN Q6HRS PRN PO MILD PAIN / TEMP > 100.3'F 08/24/20 18:15 09/04/20 08:58 Multi-Ingredient Ointment (Analgesic [place]) 1 césar PRN QID PRN TP MUSCLE PAIN 08/24/20 18:15 Al Hydroxide/Mg Hydroxide (Mylanta Plus Xs) 15 ml PRN AFTMEALHC PRN PO DYSPEPSIA 08/24/20 18:15 Magnesium Hydroxide (Milk Of Magnesia) 2,400 mg PRN QHS PRN PO CONSTIPATION 08/24/20 18:15 Aspirin (Aspirin Chewable) 81 mg DAILY PO 08/25/20 09:00 10/12/20 08:18 Cetirizine HCl (ZyrTEC) 10 mg DAILY08 PO 08/25/20 08:00 10/12/20 08:19 Donepezil HCl (Aricept) 23 mg QHS PO 08/24/20 21:00 08/28/20 15:38 DC 08/27/20 20:34 Fluoxetine HCl (PROzac) 20 mg DAILY PO 08/25/20 09:00 10/12/20 08:19 Lorazepam (Ativan) 1 mg PRN Q4HRS PRN PO ANXIETY / AGITATION 08/24/20 18:45 09/04/20 16:12 DC 09/04/20 01:29 Atorvastatin Calcium (Lipitor) 40 mg QHS PO 08/24/20 21:00 10/12/20 20:15 Pantoprazole Sodium (Protonix) 40 mg DAILY08 PO 08/25/20 08:00 10/12/20 08:19 Multivitamins/ Calcium (Thera-M Plus) 1 tab DAILY PO 08/25/20 09:00 10/12/20 08:19 Mupirocin (Bactroban) 1 césar BID92 TP 08/25/20 09:00 09/03/20 12:35 DC 09/01/20 14:00 Fish Oil (Fish Oil) 1,000 mg DAILY PO 08/25/20 09:00 10/12/20 08:18 Olanzapine (ZyPREXA ZYDIS) 2.5 mg PRN Q2HR PRN PO PSYCHOSIS 08/24/20 19:45 09/21/20 19:44 Sertraline HCl (Zoloft) 25 mg DAILY PO 08/26/20 09:00 08/28/20 21:00 DC 08/28/20 08:37 Sertraline HCl (Zoloft) 50 mg DAILY PO 08/29/20 09:00 09/06/20 18:40 DC 09/04/20 08:58 Tamsulosin HCl (Flomax) 0.4 mg QHS PO 08/28/20 21:00 10/12/20 20:15 Mupirocin (Bactroban) 1 césar PRN BID PRN TP RASH 09/03/20 12:45 Diphenhydramine HCl (Benadryl) 50 mg 1X ONCE PO 09/04/20 21:00 09/04/20 21:01 DC 09/04/20 21:21 Olanzapine (ZyPREXA ZYDIS) 5 mg 1X ONCE PO 09/27/20 18:30 09/27/20 18:31 DC 09/27/20 18:30 Divalproex Sodium (Depakote Sprinkles) 125 mg 0900,1700 PO 09/28/20 17:00 10/12/20 17:08 DC 10/12/20 08:18 Furosemide (Lasix) 80 mg 1X ONCE PO 09/30/20 15:30 09/30/20 15:31 DC 09/30/20 16:00 Furosemide (Lasix) 80 mg DAILY PO 10/01/20 09:00 10/12/20 08:19 Potassium Chloride (Klor-Con) 20 meq DAILYWBKFT PO 10/01/20 08:00 10/12/20 08:18 Trazodone HCl (Desyrel) 50 mg PRN QHS PRN PO INSOMNIA 10/08/20 16:15 10/09/20 20:15 Divalproex Sodium (Depakote Sprinkles) 125 mg 0900,1300,1700,2100 PO 10/12/20 17:50 10/12/20 20:16 Current Medications Medications (Trade) Dose Ordered Sig/Ashvin Route PRN Reason Start Time Stop Time Status Last Admin Dose Admin Divalproex Sodium (Depakote Sprinkles) 125 mg 0900,1300,1700,2100 PO 10/12/20 17:50 10/12/20 20:16 I have reviewed the current psychotropics carefully including drug interactions. Risk benefit ratio favors no change other than as noted in my dictated progress note. Diagnosis: Problems: (1) Impulse control disorder, unspecified (2) Anxiety disorder, unspecified (3) Dementia, vascular, with depression (4) Dementia, vascular, with delusions (5) Dementia in Alzheimer's disease with depression (6) Dementia in Alzheimer's disease with delusions (7) Dementia of the Alzheimer's type with early onset with behavioral disturbance (8) Major neurocognitive disorder VERENA AGUSTIN MD Oct 12, 2020 21:49
[2020-10-13 05:46] VITALS: BP 132/64
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
[2020-10-13] MEDS: ASPIRIN CHEWABLE 81 MG TABLET. PO SCH (08:11)
[2020-10-13] MEDS: FUROSEMIDE 40 MG TABLET PO SCH (08:12)
[2020-10-13] MEDS: MULTIVITAMIN with MINERAL TABLET. PO SCH (08:12)
[2020-10-13] MEDS: POTASSIUM CHLORIDE 20 MEQ TABLET.ER. PO SCH (08:13)
[2020-10-13] MEDS: PANTOPRAZOLE 40 MG TABLET. PO SCH (08:13)
[2020-10-13] MEDS: OMEGA-3 FATTY ACIDS/FISH OIL 1,000 MG CAPSULE. PO SCH (08:13)
[2020-10-13] MEDS: CETIRIZINE HCL 10 MG TABLET PO SCH (08:13)
[2020-10-13] MEDS: DIVALPROEX 125 MG CAP.SPRINK PO SCH ×4 (08:14→20:46)
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
[2020-10-13 15:43] VITALS: BP 109/70
[2020-10-13] MEDS: ATORVASTATIN CALCIUM 20 MG TABLET PO SCH (20:46)
[2020-10-13] MEDS: TAMSULOSIN 0.4 MG CAP.ER.24H. PO SCH (20:46)
[2020-10-13 21:39] LABS: BILIRUBIN,URINE NEG (NEG); CLARITY,URINE CLEAR; COLOR,URINE YELLOW; GLUCOSE,URINE NEG (NEG); NITRITE,URINE NEG (NEG); UROBILINOGEN,URINE 0.2 mg/dL (0.2 mg/dL)
[2020-10-13 21:40] LABS: BACTERIA,URINE 0 /HPF (0-FEW); RBC,URINE 0 /HPF (0-2); SQUAMOUS EPITHELIAL CELL,UR FEW /LPF; WBC,URINE 0 /HPF (0-4)
--- NOTE | 2020-10-13 21:58 | PDOC ---
Exam Note: Fercho Note: Please also refer to the separate dictated note~for this date of service dictated separately.~Patient seen individually. Discussed the patient with Nursing staff reviewed the chart.~Reviewed interim history and current functioning. Reviewed vital signs,~Labs/ Radiology~and current medications noted below. Continue current treatment with the changes noted in the dictated addendum note Assessment: Vital Signs/I&O: Vital Signs Date Time Temp Pulse Resp B/P (MAP) Pulse Ox O2 Delivery O2 Flow Rate FiO2 10/13/20 15:43 97.6 86 16 109/70 (83) 93 Room Air I & O 10/12/20 10/12/20 10/13/20 15:00 23:00 07:00 Intake Total 1240 ml 720 ml Balance 1240 ml 720 ml Labs: Laboratory Tests Test 10/13/20 20:30 Urine Collection Type Unknown Urine Color Yellow Urine Clarity Clear Urine pH 5.5 Urine Specific [place] 1.020 Urine Protein Neg (NEG-TRACE) Urine Glucose (UA) Neg mg/dL (NEG) Urine Ketones (Stick) 15 mg/dL (NEG) Urine Blood Neg (NEG) Urine Nitrite Neg (NEG) Urine Bilirubin Neg (NEG) Urine Urobilinogen Dipstick 0.2 mg/dL (0.2 mg/dL) Urine Leukocyte Esterase Neg (NEG) Urine RBC 0 /HPF (0-2) Urine WBC 0 /HPF (0-4) Urine Squamous Epithelial Cells Few /LPF Urine Bacteria 0 /HPF (0-FEW) Current Medications: Meds: Laboratory Tests Test 10/13/20 20:30 Urine Collection Type Unknown Urine Color Yellow Urine Clarity Clear Urine pH 5.5 Urine Specific [place] 1.020 Urine Protein Neg Urine Glucose (UA) Neg mg/dL Urine Ketones (Stick) 15 mg/dL Urine Blood Neg Urine Nitrite Neg Urine Bilirubin Neg Urine Urobilinogen Dipstick 0.2 mg/dL Urine Leukocyte Esterase Neg Urine RBC 0 /HPF Urine WBC 0 /HPF Urine Squamous Epithelial Cells Few /LPF Urine Bacteria 0 /HPF Current Medications Medications (Trade) Dose Ordered Sig/Ashvin Route PRN Reason Start Time Stop Time Status Last Admin Dose Admin Acetaminophen (Tylenol) 650 mg PRN Q6HRS PRN PO MILD PAIN / TEMP > 100.3'F 08/24/20 18:15 09/04/20 08:58 Multi-Ingredient Ointment (Analgesic [place]) 1 césar PRN QID PRN TP MUSCLE PAIN 08/24/20 18:15 Al Hydroxide/Mg Hydroxide (Mylanta Plus Xs) 15 ml PRN AFTMEALHC PRN PO DYSPEPSIA 08/24/20 18:15 Magnesium Hydroxide (Milk Of Magnesia) 2,400 mg PRN QHS PRN PO CONSTIPATION 08/24/20 18:15 Aspirin (Aspirin Chewable) 81 mg DAILY PO 08/25/20 09:00 10/13/20 08:11 Cetirizine HCl (ZyrTEC) 10 mg DAILY08 PO 08/25/20 08:00 10/13/20 08:13 Donepezil HCl (Aricept) 23 mg QHS PO 08/24/20 21:00 08/28/20 15:38 DC 08/27/20 20:34 Fluoxetine HCl (PROzac) 20 mg DAILY PO 08/25/20 09:00 10/13/20 08:13 Lorazepam (Ativan) 1 mg PRN Q4HRS PRN PO ANXIETY / AGITATION 08/24/20 18:45 09/04/20 16:12 DC 09/04/20 01:29 Atorvastatin Calcium (Lipitor) 40 mg QHS PO 08/24/20 21:00 10/13/20 20:46 Pantoprazole Sodium (Protonix) 40 mg DAILY08 PO 08/25/20 08:00 10/13/20 08:13 Multivitamins/ Calcium (Thera-M Plus) 1 tab DAILY PO 08/25/20 09:00 10/13/20 08:12 Mupirocin (Bactroban) 1 césar BID92 TP 08/25/20 09:00 09/03/20 12:35 DC 09/01/20 14:00 Fish Oil (Fish Oil) 1,000 mg DAILY PO 08/25/20 09:00 10/13/20 08:13 Olanzapine (ZyPREXA ZYDIS) 2.5 mg PRN Q2HR PRN PO PSYCHOSIS 08/24/20 19:45 09/21/20 19:44 Sertraline HCl (Zoloft) 25 mg DAILY PO 08/26/20 09:00 08/28/20 21:00 DC 08/28/20 08:37 Sertraline HCl (Zoloft) 50 mg DAILY PO 08/29/20 09:00 09/06/20 18:40 DC 09/04/20 08:58 Tamsulosin HCl (Flomax) 0.4 mg QHS PO 08/28/20 21:00 10/13/20 20:46 Mupirocin (Bactroban) 1 césar PRN BID PRN TP RASH 09/03/20 12:45 Diphenhydramine HCl (Benadryl) 50 mg 1X ONCE PO 09/04/20 21:00 09/04/20 21:01 DC 09/04/20 21:21 Olanzapine (ZyPREXA ZYDIS) 5 mg 1X ONCE PO 09/27/20 18:30 09/27/20 18:31 DC 09/27/20 18:30 Divalproex Sodium (Depakote Sprinkles) 125 mg 0900,1700 PO 09/28/20 17:00 10/12/20 17:08 DC 10/12/20 08:18 Furosemide (Lasix) 80 mg 1X ONCE PO 09/30/20 15:30 09/30/20 15:31 DC 09/30/20 16:00 Furosemide (Lasix) 80 mg DAILY PO 10/01/20 09:00 10/13/20 08:12 Potassium Chloride (Klor-Con) 20 meq DAILYWBKFT PO 10/01/20 08:00 10/13/20 08:13 Trazodone HCl (Desyrel) 50 mg PRN QHS PRN PO INSOMNIA 10/08/20 16:15 10/09/20 20:15 Divalproex Sodium (Depakote Sprinkles) 125 mg 0900,1300,1700,2100 PO 10/12/20 17:50 10/13/20 20:46 I have reviewed the current psychotropics carefully including drug interactions. Risk benefit ratio favors no change other than as noted in my dictated progress note. Diagnosis: Problems: (1) Impulse control disorder, unspecified (2) Anxiety disorder, unspecified (3) Dementia, vascular, with depression (4) Dementia, vascular, with delusions (5) Dementia in Alzheimer's disease with depression (6) Dementia in Alzheimer's disease with delusions (7) Dementia of the Alzheimer's type with early onset with behavioral disturbance (8) Major neurocognitive disorder VERENA AGUSTIN MD Oct 13, 2020 21:58
[2020-10-14 05:36] VITALS: BP 127/72
[2020-10-14] MEDS: FUROSEMIDE 40 MG TABLET PO SCH (08:19)
[2020-10-14] MEDS: DIVALPROEX 125 MG CAP.SPRINK PO SCH ×4 (08:19→21:56)
[2020-10-14] MEDS: OMEGA-3 FATTY ACIDS/FISH OIL 1,000 MG CAPSULE. PO SCH (08:19)
[2020-10-14] MEDS: MULTIVITAMIN with MINERAL TABLET. PO SCH (08:19)
[2020-10-14] MEDS: ASPIRIN CHEWABLE 81 MG TABLET. PO SCH (08:19)
[2020-10-14] MEDS: POTASSIUM CHLORIDE 20 MEQ TABLET.ER. PO SCH (08:19)
[2020-10-14] MEDS: PANTOPRAZOLE 40 MG TABLET. PO SCH (08:19)
[2020-10-14] MEDS: CETIRIZINE HCL 10 MG TABLET PO SCH (08:19)
[2020-10-14 15:56] VITALS: BP 99/61
--- NOTE | 2020-10-14 21:53 | PDOC ---
Exam Note: Fercho Note: Please also refer to the separate dictated note~for this date of service dictated separately.~Patient seen individually. Discussed the patient with Nursing staff reviewed the chart.~Reviewed interim history and current functioning. Reviewed vital signs,~Labs/ Radiology~and current medications noted below. Continue current treatment with the changes noted in the dictated addendum note Assessment: Vital Signs/I&O: Vital Signs Date Time Temp Pulse Resp B/P (MAP) Pulse Ox O2 Delivery O2 Flow Rate FiO2 10/14/20 15:56 97.6 16 16 99/61 (74) 95 Room Air I & O 10/13/20 10/13/20 10/14/20 14:59 22:59 06:59 Intake Total 840 ml 480 ml Balance 840 ml 480 ml Current Medications: Meds: Current Medications Medications (Trade) Dose Ordered Sig/Ashvin Route PRN Reason Start Time Stop Time Status Last Admin Dose Admin Acetaminophen (Tylenol) 650 mg PRN Q6HRS PRN PO MILD PAIN / TEMP > 100.3'F 08/24/20 18:15 09/04/20 08:58 Multi-Ingredient Ointment (Analgesic [place]) 1 césar PRN QID PRN TP MUSCLE PAIN 08/24/20 18:15 Al Hydroxide/Mg Hydroxide (Mylanta Plus Xs) 15 ml PRN AFTMEALHC PRN PO DYSPEPSIA 08/24/20 18:15 Magnesium Hydroxide (Milk Of Magnesia) 2,400 mg PRN QHS PRN PO CONSTIPATION 08/24/20 18:15 Aspirin (Aspirin Chewable) 81 mg DAILY PO 08/25/20 09:00 10/14/20 08:19 Cetirizine HCl (ZyrTEC) 10 mg DAILY08 PO 08/25/20 08:00 10/14/20 08:19 Donepezil HCl (Aricept) 23 mg QHS PO 08/24/20 21:00 08/28/20 15:38 DC 08/27/20 20:34 Fluoxetine HCl (PROzac) 20 mg DAILY PO 08/25/20 09:00 10/14/20 08:18 Lorazepam (Ativan) 1 mg PRN Q4HRS PRN PO ANXIETY / AGITATION 08/24/20 18:45 09/04/20 16:12 DC 09/04/20 01:29 Atorvastatin Calcium (Lipitor) 40 mg QHS PO 08/24/20 21:00 10/13/20 20:46 Pantoprazole Sodium (Protonix) 40 mg DAILY08 PO 08/25/20 08:00 10/14/20 08:19 Multivitamins/ Calcium (Thera-M Plus) 1 tab DAILY PO 08/25/20 09:00 10/14/20 08:19 Mupirocin (Bactroban) 1 césar BID92 TP 08/25/20 09:00 09/03/20 12:35 DC 09/01/20 14:00 Fish Oil (Fish Oil) 1,000 mg DAILY PO 08/25/20 09:00 10/14/20 08:19 Olanzapine (ZyPREXA ZYDIS) 2.5 mg PRN Q2HR PRN PO PSYCHOSIS 08/24/20 19:45 09/21/20 19:44 Sertraline HCl (Zoloft) 25 mg DAILY PO 08/26/20 09:00 08/28/20 21:00 DC 08/28/20 08:37 Sertraline HCl (Zoloft) 50 mg DAILY PO 08/29/20 09:00 09/06/20 18:40 DC 09/04/20 08:58 Tamsulosin HCl (Flomax) 0.4 mg QHS PO 08/28/20 21:00 10/13/20 20:46 Mupirocin (Bactroban) 1 césar PRN BID PRN TP RASH 09/03/20 12:45 Diphenhydramine HCl (Benadryl) 50 mg 1X ONCE PO 09/04/20 21:00 09/04/20 21:01 DC 09/04/20 21:21 Olanzapine (ZyPREXA ZYDIS) 5 mg 1X ONCE PO 09/27/20 18:30 09/27/20 18:31 DC 09/27/20 18:30 Divalproex Sodium (Depakote Sprinkles) 125 mg 0900,1700 PO 09/28/20 17:00 10/12/20 17:08 DC 10/12/20 08:18 Furosemide (Lasix) 80 mg 1X ONCE PO 09/30/20 15:30 09/30/20 15:31 DC 09/30/20 16:00 Furosemide (Lasix) 80 mg DAILY PO 10/01/20 09:00 10/14/20 08:19 Potassium Chloride (Klor-Con) 20 meq DAILYWBKFT PO 10/01/20 08:00 10/14/20 08:19 Trazodone HCl (Desyrel) 50 mg PRN QHS PRN PO INSOMNIA 10/08/20 16:15 10/09/20 20:15 Divalproex Sodium (Depakote Sprinkles) 125 mg 0900,1300,1700,2100 PO 10/12/20 17:50 10/14/20 17:29 I have reviewed the current psychotropics carefully including drug interactions. Risk benefit ratio favors no change other than as noted in my dictated progress note. Diagnosis: Problems: (1) Impulse control disorder, unspecified (2) Anxiety disorder, unspecified (3) Dementia, vascular, with depression (4) Dementia, vascular, with delusions (5) Dementia in Alzheimer's disease with depression (6) Dementia in Alzheimer's disease with delusions (7) Dementia of the Alzheimer's type with early onset with behavioral disturbance (8) Major neurocognitive disorder VERENA AGUSTIN MD Oct 14, 2020 21:53
[2020-10-14] MEDS: TAMSULOSIN 0.4 MG CAP.ER.24H. PO SCH (21:55)
[2020-10-14] MEDS: ATORVASTATIN CALCIUM 20 MG TABLET PO SCH (21:56)
[2020-10-15 05:44] VITALS: BP 114/56
--- NOTE | 2020-10-15 07:10 | PDOC ---
Exam Note: Fercho Note: This note is a late entry for 10/13/2020 covers elements not covered in my initial note. Subjective: The patient was reviewed in the morning of 10/13/2020 for a treatment team meeting with Niecy Naqvi, Ingris Serrano (social sciences department chair), Ingrid, activity therapy and Jose RN and Dev RN, discussed and reviewed the chart. He slept 7-1/2 hours previous night. Reportedly he has attended 6 groups in the past week. Remains confused, wanders the hallways, pleasant, smiling, another episode of getting agitated when over-stimulated. We did increase the Depakote with repeat labs on 10/16. Review of Systems: No CV, , pulmonary, ENT system symptoms on review. Mental Status Exam: The patient is oriented to himself. Insight and judgment, recent and remote memory, attention and concentration fund of knowledge is poor consistent with his diagnoses. Laboratory Data: Reviewed. Impression: Major neurocognitive disorder Alzheimer vascular with delusion, depression, behavioral disturbance. Anxiety disorder unspecified. Impulse control disorder unspecified. Plan: Continue current psychotropics. Adjust further as clinically indicated. Assessment: Vital Signs/I&O: Vital Signs Date Time Temp Pulse Resp B/P (MAP) Pulse Ox O2 Delivery O2 Flow Rate FiO2 10/15/20 05:44 97.6 71 16 114/56 (75) 99 Room Air I & O 10/14/20 10/14/20 10/15/20 15:00 23:00 07:00 Intake Total 360 ml 840 ml Balance 360 ml 840 ml Current Medications: Meds: Current Medications Medications (Trade) Dose Ordered Sig/Ashvin Route PRN Reason Start Time Stop Time Status Last Admin Dose Admin Acetaminophen (Tylenol) 650 mg PRN Q6HRS PRN PO MILD PAIN / TEMP > 100.3'F 08/24/20 18:15 09/04/20 08:58 Multi-Ingredient Ointment (Analgesic [place]) 1 césar PRN QID PRN TP MUSCLE PAIN 08/24/20 18:15 Al Hydroxide/Mg Hydroxide (Mylanta Plus Xs) 15 ml PRN AFTMEALHC PRN PO DYSPEPSIA 08/24/20 18:15 Magnesium Hydroxide (Milk Of Magnesia) 2,400 mg PRN QHS PRN PO CONSTIPATION 08/24/20 18:15 Aspirin (Aspirin Chewable) 81 mg DAILY PO 08/25/20 09:00 10/14/20 08:19 Cetirizine HCl (ZyrTEC) 10 mg DAILY08 PO 08/25/20 08:00 10/14/20 08:19 Donepezil HCl (Aricept) 23 mg QHS PO 08/24/20 21:00 08/28/20 15:38 DC 08/27/20 20:34 Fluoxetine HCl (PROzac) 20 mg DAILY PO 08/25/20 09:00 10/14/20 08:18 Lorazepam (Ativan) 1 mg PRN Q4HRS PRN PO ANXIETY / AGITATION 08/24/20 18:45 09/04/20 16:12 DC 09/04/20 01:29 Atorvastatin Calcium (Lipitor) 40 mg QHS PO 08/24/20 21:00 10/14/20 21:56 Pantoprazole Sodium (Protonix) 40 mg DAILY08 PO 08/25/20 08:00 10/14/20 08:19 Multivitamins/ Calcium (Thera-M Plus) 1 tab DAILY PO 08/25/20 09:00 10/14/20 08:19 Mupirocin (Bactroban) 1 césar BID92 TP 08/25/20 09:00 09/03/20 12:35 DC 09/01/20 14:00 Fish Oil (Fish Oil) 1,000 mg DAILY PO 08/25/20 09:00 10/14/20 08:19 Olanzapine (ZyPREXA ZYDIS) 2.5 mg PRN Q2HR PRN PO PSYCHOSIS 08/24/20 19:45 09/21/20 19:44 Sertraline HCl (Zoloft) 25 mg DAILY PO 08/26/20 09:00 08/28/20 21:00 DC 08/28/20 08:37 Sertraline HCl (Zoloft) 50 mg DAILY PO 08/29/20 09:00 09/06/20 18:40 DC 09/04/20 08:58 Tamsulosin HCl (Flomax) 0.4 mg QHS PO 08/28/20 21:00 10/14/20 21:55 Mupirocin (Bactroban) 1 césar PRN BID PRN TP RASH 09/03/20 12:45 Diphenhydramine HCl (Benadryl) 50 mg 1X ONCE PO 09/04/20 21:00 09/04/20 21:01 DC 09/04/20 21:21 Olanzapine (ZyPREXA ZYDIS) 5 mg 1X ONCE PO 09/27/20 18:30 09/27/20 18:31 DC 09/27/20 18:30 Divalproex Sodium (Depakote Sprinkles) 125 mg 0900,1700 PO 09/28/20 17:00 10/12/20 17:08 DC 10/12/20 08:18 Furosemide (Lasix) 80 mg 1X ONCE PO 09/30/20 15:30 09/30/20 15:31 DC 09/30/20 16:00 Furosemide (Lasix) 80 mg DAILY PO 10/01/20 09:00 10/14/20 08:19 Potassium Chloride (Klor-Con) 20 meq DAILYWBKFT PO 10/01/20 08:00 10/14/20 08:19 Trazodone HCl (Desyrel) 50 mg PRN QHS PRN PO INSOMNIA 10/08/20 16:15 10/09/20 20:15 Divalproex Sodium (Depakote Sprinkles) 125 mg 0900,1300,1700,2100 PO 10/12/20 17:50 10/14/20 21:56 I have reviewed the current psychotropics carefully including drug interactions. Risk benefit ratio favors no change other than as noted in my dictated progress note. Diagnosis: Problems: (1) Impulse control disorder, unspecified (2) Anxiety disorder, unspecified (3) Dementia, vascular, with depression (4) Dementia, vascular, with delusions (5) Dementia in Alzheimer's disease with depression (6) Dementia in Alzheimer's disease with delusions (7) Dementia of the Alzheimer's type with early onset with behavioral disturbance (8) Major neurocognitive disorder VERENA AGUSTIN MD Oct 15, 2020 07:10
--- NOTE | 2020-10-15 07:25 | PDOC ---
Exam Note: Fercho Note: This note is a late entry for 10/14/2020 covers elements not covered in my initial note. Subjective: The patient was seen individually in the evening of 10/14/2020 with Jose ABREU, discussed and reviewed the chart. He slept 6-1/4 hours previous night. He has been pleasant, cooperative, smiling, not aggressive, wanders the hallways. Review of Systems: No CV, , pulmonary, ENT system symptoms on review. Mental Status Exam: The patient is oriented to himself. Insight and judgment, recent and remote memory, attention and concentration fund of knowledge is poor consistent with his diagnoses. Laboratory Data: Reviewed. Impression: Major neurocognitive disorder Alzheimer vascular with delusion, depression, behavioral disturbance. Anxiety disorder unspecified. Impulse control disorder unspecified. Plan: Continue current psychotropics. Adjust further as clinically indicated. Assessment: Vital Signs/I&O: Vital Signs Date Time Temp Pulse Resp B/P (MAP) Pulse Ox O2 Delivery O2 Flow Rate FiO2 10/15/20 05:44 97.6 71 16 114/56 (75) 99 Room Air I & O 10/14/20 10/14/20 10/15/20 15:00 23:00 07:00 Intake Total 360 ml 840 ml Balance 360 ml 840 ml Current Medications: Meds: Current Medications Medications (Trade) Dose Ordered Sig/Ashvin Route PRN Reason Start Time Stop Time Status Last Admin Dose Admin Acetaminophen (Tylenol) 650 mg PRN Q6HRS PRN PO MILD PAIN / TEMP > 100.3'F 08/24/20 18:15 09/04/20 08:58 Multi-Ingredient Ointment (Analgesic [place]) 1 césar PRN QID PRN TP MUSCLE PAIN 08/24/20 18:15 Al Hydroxide/Mg Hydroxide (Mylanta Plus Xs) 15 ml PRN AFTMEALHC PRN PO DYSPEPSIA 08/24/20 18:15 Magnesium Hydroxide (Milk Of Magnesia) 2,400 mg PRN QHS PRN PO CONSTIPATION 08/24/20 18:15 Aspirin (Aspirin Chewable) 81 mg DAILY PO 08/25/20 09:00 10/14/20 08:19 Cetirizine HCl (ZyrTEC) 10 mg DAILY08 PO 08/25/20 08:00 10/14/20 08:19 Donepezil HCl (Aricept) 23 mg QHS PO 08/24/20 21:00 08/28/20 15:38 DC 08/27/20 20:34 Fluoxetine HCl (PROzac) 20 mg DAILY PO 08/25/20 09:00 10/14/20 08:18 Lorazepam (Ativan) 1 mg PRN Q4HRS PRN PO ANXIETY / AGITATION 08/24/20 18:45 09/04/20 16:12 DC 09/04/20 01:29 Atorvastatin Calcium (Lipitor) 40 mg QHS PO 08/24/20 21:00 10/14/20 21:56 Pantoprazole Sodium (Protonix) 40 mg DAILY08 PO 08/25/20 08:00 10/14/20 08:19 Multivitamins/ Calcium (Thera-M Plus) 1 tab DAILY PO 08/25/20 09:00 10/14/20 08:19 Mupirocin (Bactroban) 1 césar BID92 TP 08/25/20 09:00 09/03/20 12:35 DC 09/01/20 14:00 Fish Oil (Fish Oil) 1,000 mg DAILY PO 08/25/20 09:00 10/14/20 08:19 Olanzapine (ZyPREXA ZYDIS) 2.5 mg PRN Q2HR PRN PO PSYCHOSIS 08/24/20 19:45 09/21/20 19:44 Sertraline HCl (Zoloft) 25 mg DAILY PO 08/26/20 09:00 08/28/20 21:00 DC 08/28/20 08:37 Sertraline HCl (Zoloft) 50 mg DAILY PO 08/29/20 09:00 09/06/20 18:40 DC 09/04/20 08:58 Tamsulosin HCl (Flomax) 0.4 mg QHS PO 08/28/20 21:00 10/14/20 21:55 Mupirocin (Bactroban) 1 césar PRN BID PRN TP RASH 09/03/20 12:45 Diphenhydramine HCl (Benadryl) 50 mg 1X ONCE PO 09/04/20 21:00 09/04/20 21:01 DC 09/04/20 21:21 Olanzapine (ZyPREXA ZYDIS) 5 mg 1X ONCE PO 6/8/21 18:30 09/27/20 18:31 DC 09/27/20 18:30 Divalproex Sodium (Depakote Sprinkles) 125 mg 0900,1700 PO 09/28/20 17:00 10/12/20 17:08 DC 10/12/20 08:18 Furosemide (Lasix) 80 mg 1X ONCE PO 09/30/20 15:30 09/30/20 15:31 DC 09/30/20 16:00 Furosemide (Lasix) 80 mg DAILY PO 10/01/20 09:00 10/14/20 08:19 Potassium Chloride (Klor-Con) 20 meq DAILYWBKFT PO 10/01/20 08:00 10/14/20 08:19 Trazodone HCl (Desyrel) 50 mg PRN QHS PRN PO INSOMNIA 10/08/20 16:15 10/09/20 20:15 Divalproex Sodium (Depakote Sprinkles) 125 mg 0900,1300,1700,2100 PO 10/12/20 17:50 10/14/20 21:56 I have reviewed the current psychotropics carefully including drug interactions. Risk benefit ratio favors no change other than as noted in my dictated progress note. Diagnosis: Problems: (1) Impulse control disorder, unspecified (2) Anxiety disorder, unspecified (3) Dementia, vascular, with depression (4) Dementia, vascular, with delusions (5) Dementia in Alzheimer's disease with depression (6) Dementia in Alzheimer's disease with delusions (7) Dementia of the Alzheimer's type with early onset with behavioral disturbance (8) Major neurocognitive disorder VERENA AGUSTIN MD Oct 15, 2020 07:25
[2020-10-15] MEDS: CETIRIZINE HCL 10 MG TABLET PO SCH (08:12)
[2020-10-15] MEDS: PANTOPRAZOLE 40 MG TABLET. PO SCH (08:13)
[2020-10-15] MEDS: OMEGA-3 FATTY ACIDS/FISH OIL 1,000 MG CAPSULE. PO SCH (08:13)
[2020-10-15] MEDS: POTASSIUM CHLORIDE 20 MEQ TABLET.ER. PO SCH (08:13)
[2020-10-15] MEDS: DIVALPROEX 125 MG CAP.SPRINK PO SCH ×4 (08:13→20:31)
[2020-10-15] MEDS: ASPIRIN CHEWABLE 81 MG TABLET. PO SCH (08:13)
[2020-10-15] MEDS: FUROSEMIDE 40 MG TABLET PO SCH (08:14)
[2020-10-15] MEDS: MULTIVITAMIN with MINERAL TABLET. PO SCH (08:14)
[2020-10-15 16:07] VITALS: BP 128/75
[2020-10-15] MEDS: ATORVASTATIN CALCIUM 20 MG TABLET PO SCH (20:31)
[2020-10-15] MEDS: TAMSULOSIN 0.4 MG CAP.ER.24H. PO SCH (20:31)
--- NOTE | 2020-10-15 23:13 | PDOC ---
Exam Note: Fercho Note: Please also refer to the separate dictated note~for this date of service dictated separately.~Patient seen individually. Discussed the patient with Nursing staff reviewed the chart.~Reviewed interim history and current functioning. Reviewed vital signs,~Labs/ Radiology~and current medications noted below. Continue current treatment with the changes noted in the dictated addendum note Assessment: Vital Signs/I&O: Vital Signs Date Time Temp Pulse Resp B/P (MAP) Pulse Ox O2 Delivery O2 Flow Rate FiO2 10/15/20 16:07 98.0 79 20 128/75 (92) 98 10/15/20 05:44 Room Air I & O 10/14/20 10/14/20 10/15/20 14:59 22:59 06:59 Intake Total 360 ml 840 ml Balance 360 ml 840 ml Current Medications: Meds: Current Medications Medications (Trade) Dose Ordered Sig/Ashvin Route PRN Reason Start Time Stop Time Status Last Admin Dose Admin Acetaminophen (Tylenol) 650 mg PRN Q6HRS PRN PO MILD PAIN / TEMP > 100.3'F 08/24/20 18:15 09/04/20 08:58 Multi-Ingredient Ointment (Analgesic [place]) 1 césar PRN QID PRN TP MUSCLE PAIN 08/24/20 18:15 Al Hydroxide/Mg Hydroxide (Mylanta Plus Xs) 15 ml PRN AFTMEALHC PRN PO DYSPEPSIA 08/24/20 18:15 Magnesium Hydroxide (Milk Of Magnesia) 2,400 mg PRN QHS PRN PO CONSTIPATION 08/24/20 18:15 Aspirin (Aspirin Chewable) 81 mg DAILY PO 08/25/20 09:00 10/15/20 08:13 Cetirizine HCl (ZyrTEC) 10 mg DAILY08 PO 08/25/20 08:00 10/15/20 08:12 Donepezil HCl (Aricept) 23 mg QHS PO 08/24/20 21:00 08/28/20 15:38 DC 08/27/20 20:34 Fluoxetine HCl (PROzac) 20 mg DAILY PO 08/25/20 09:00 10/15/20 08:14 Lorazepam (Ativan) 1 mg PRN Q4HRS PRN PO ANXIETY / AGITATION 08/24/20 18:45 09/04/20 16:12 DC 09/04/20 01:29 Atorvastatin Calcium (Lipitor) 40 mg QHS PO 08/24/20 21:00 10/15/20 20:31 Pantoprazole Sodium (Protonix) 40 mg DAILY08 PO 08/25/20 08:00 10/15/20 08:13 Multivitamins/ Calcium (Thera-M Plus) 1 tab DAILY PO 08/25/20 09:00 10/15/20 08:14 Mupirocin (Bactroban) 1 césar BID92 TP 08/25/20 09:00 09/03/20 12:35 DC 09/01/20 14:00 Fish Oil (Fish Oil) 1,000 mg DAILY PO 08/25/20 09:00 10/15/20 08:13 Olanzapine (ZyPREXA ZYDIS) 2.5 mg PRN Q2HR PRN PO PSYCHOSIS 08/24/20 19:45 09/21/20 19:44 Sertraline HCl (Zoloft) 25 mg DAILY PO 08/26/20 09:00 08/28/20 21:00 DC 08/28/20 08:37 Sertraline HCl (Zoloft) 50 mg DAILY PO 08/29/20 09:00 09/06/20 18:40 DC 09/04/20 08:58 Tamsulosin HCl (Flomax) 0.4 mg QHS PO 08/28/20 21:00 10/15/20 20:31 Mupirocin (Bactroban) 1 césar PRN BID PRN TP RASH 09/03/20 12:45 Diphenhydramine HCl (Benadryl) 50 mg 1X ONCE PO 09/04/20 21:00 09/04/20 21:01 DC 09/04/20 21:21 Olanzapine (ZyPREXA ZYDIS) 5 mg 1X ONCE PO 09/27/20 18:30 09/27/20 18:31 DC 09/27/20 18:30 Divalproex Sodium (Depakote Sprinkles) 125 mg 0900,1700 PO 09/28/20 17:00 10/12/20 17:08 DC 10/12/20 08:18 Furosemide (Lasix) 80 mg 1X ONCE PO 09/30/20 15:30 09/30/20 15:31 DC 09/30/20 16:00 Furosemide (Lasix) 80 mg DAILY PO 10/01/20 09:00 10/15/20 08:14 Potassium Chloride (Klor-Con) 20 meq DAILYWBKFT PO 10/01/20 08:00 10/15/20 08:13 Trazodone HCl (Desyrel) 50 mg PRN QHS PRN PO INSOMNIA 10/08/20 16:15 10/09/20 20:15 Divalproex Sodium (Depakote Sprinkles) 125 mg 0900,1300,1700,2100 PO 10/12/20 17:50 10/15/20 20:31 I have reviewed the current psychotropics carefully including drug interactions. Risk benefit ratio favors no change other than as noted in my dictated progress note. Diagnosis: Problems: (1) Impulse control disorder, unspecified (2) Anxiety disorder, unspecified (3) Dementia, vascular, with depression (4) Dementia, vascular, with delusions (5) Dementia in Alzheimer's disease with depression (6) Dementia in Alzheimer's disease with delusions (7) Dementia of the Alzheimer's type with early onset with behavioral disturbance (8) Major neurocognitive disorder VERENA AGUSTIN MD Oct 15, 2020 23:13
[2020-10-16 06:27] VITALS: BP 130/88
[2020-10-16 07:09] LABS: BASO # 0.1 x10^3/uL (0.0-0.2); BASO % 1 % (0-3); EOS # 0.3 x10^3/uL (0.0-0.7); EOS % 4 % (0-3); HEMATOCRIT 37.9 % (39.0-53.0); HEMOGLOBIN 12.9 g/dL (13.0-17.5); LYMPH # 1.4 x10^3/uL (1.0-4.8); LYMPH % 19 % (24-48); MEAN CORPUSCULAR HEMOGLOBIN 30 pg (25-35); MEAN CORPUSCULAR HGB CONC 34 g/dL (31-37); MEAN CORPUSCULAR VOLUME 88 fL (79-100); MONO # 0.8 x10^3/uL (0.0-1.1); MONO % 10 % (0-9); NEUT # 4.9 x10^3uL (1.8-7.7); NEUT % 65 % (31-73); PLATELET COUNT 228 x10^3/uL (140-400); RED CELL DISTRIBUTION WIDTH 14.4 % (11.5-14.5); WHITE BLOOD COUNT 7.4 x10^3/uL (4.0-11.0)
[2020-10-16 07:15] LABS: ALBUMIN 3.7 g/dL (3.4-5.0); ALBUMIN/GLOBULIN RATIO 1.2 (1.0-1.7); ALK PHOS 70 U/L (46-116); ALT (SGPT) 33 U/L (16-63); ANION GAP 11 (6-14); AST (SGOT) 22 U/L (15-37); BLOOD UREA NITROGEN 33 mg/dL (8-26); BUN/CREATININE RATIO 21 (6-20); CALCIUM 8.6 mg/dL (8.5-10.1); CARBON DIOXIDE 29 mmol/L (21-32); CHLORIDE 104 mmol/L (98-107); CREATININE 1.6 mg/dL (0.7-1.3); GFR 42.6; GLUCOSE 88 mg/dL (70-99); POTASSIUM 4.2 mmol/L (3.5-5.1); SODIUM 144 mmol/L (136-145); TOTAL BILIRUBIN 0.9 mg/dL (0.2-1.0); TOTAL PROTEIN 6.7 g/dL (6.4-8.2)
[2020-10-16 07:29] LABS: VAL ACID 42 mcg/mL (50-100)
[2020-10-16] MEDS: ASPIRIN CHEWABLE 81 MG TABLET. PO SCH (08:18)
[2020-10-16] MEDS: OMEGA-3 FATTY ACIDS/FISH OIL 1,000 MG CAPSULE. PO SCH (08:19)
[2020-10-16] MEDS: DIVALPROEX 125 MG CAP.SPRINK PO SCH ×4 (08:19→20:03)
[2020-10-16] MEDS: POTASSIUM CHLORIDE 20 MEQ TABLET.ER. PO SCH (08:19)
[2020-10-16] MEDS: PANTOPRAZOLE 40 MG TABLET. PO SCH (08:19)
[2020-10-16] MEDS: MULTIVITAMIN with MINERAL TABLET. PO SCH (08:19)
[2020-10-16] MEDS: FUROSEMIDE 40 MG TABLET PO SCH (08:20)
[2020-10-16] MEDS: CETIRIZINE HCL 10 MG TABLET PO SCH (08:21)
[2020-10-16 15:39] VITALS: BP 109/72
[2020-10-16] MEDS: TAMSULOSIN 0.4 MG CAP.ER.24H. PO SCH (20:03)
[2020-10-16] MEDS: ATORVASTATIN CALCIUM 20 MG TABLET PO SCH (20:03)
[2020-10-17 05:51] VITALS: BP 110/67
[2020-10-17] MEDS: FUROSEMIDE 40 MG TABLET PO SCH (08:21)
[2020-10-17] MEDS: POTASSIUM CHLORIDE 20 MEQ TABLET.ER. PO SCH (08:21)
[2020-10-17] MEDS: PANTOPRAZOLE 40 MG TABLET. PO SCH (08:21)
[2020-10-17] MEDS: MULTIVITAMIN with MINERAL TABLET. PO SCH (08:21)
[2020-10-17] MEDS: DIVALPROEX 125 MG CAP.SPRINK PO SCH ×4 (08:22→19:43)
[2020-10-17] MEDS: CETIRIZINE HCL 10 MG TABLET PO SCH (08:22)
[2020-10-17] MEDS: ASPIRIN CHEWABLE 81 MG TABLET. PO SCH (08:22)
[2020-10-17] MEDS: OMEGA-3 FATTY ACIDS/FISH OIL 1,000 MG CAPSULE. PO SCH (08:22)
--- NOTE | 2020-10-17 09:13 | PDOC ---
Exam Note: Fercho Note: This note is a late entry for 10/15/2020 covers elements not covered in my initial note. Subjective: The patient was seen on telehealth rounds in the evening of 10/15/2020 with the nursing staff taking the telehealth camera to each patient, which was on a secure portal, discussed and reviewed the chart with Brittany ABREU. He slept 7-1/2 hours previous night. He remains confused, but not agitated or aggressive. He is pleasant, smiling as I met with him, oblivious to his circumstances. He does have some expressive language deficits receptive slightly better. Review of Systems: No CV, , pulmonary, ENT system symptoms on review. Mental Status Exam: The patient is oriented to himself. Insight and judgment, recent and remote memory, attention and concentration fund of knowledge is poor consistent with his diagnoses. Laboratory Data: Reviewed. Impression: Major neurocognitive disorder Alzheimer vascular with delusion, depression, behavioral disturbance. Anxiety disorder unspecified. Impulse control disorder unspecified. Plan: Continue current psychotropics. Adjust further as clinically indicated. Assessment: Vital Signs/I&O: Vital Signs Date Time Temp Pulse Resp B/P (MAP) Pulse Ox O2 Delivery O2 Flow Rate FiO2 10/17/20 05:51 98.2 80 18 110/67 (81) 95 10/16/20 15:39 Room Air I & O 10/16/20 10/16/20 10/17/20 15:00 23:00 07:00 Intake Total 960 ml 480 ml Balance 960 ml 480 ml Current Medications: Meds: Current Medications Medications (Trade) Dose Ordered Sig/Ashvin Route PRN Reason Start Time Stop Time Status Last Admin Dose Admin Acetaminophen (Tylenol) 650 mg PRN Q6HRS PRN PO MILD PAIN / TEMP > 100.3'F 08/24/20 18:15 09/04/20 08:58 Multi-Ingredient Ointment (Analgesic [place]) 1 césar PRN QID PRN TP MUSCLE PAIN 08/24/20 18:15 Al Hydroxide/Mg Hydroxide (Mylanta Plus Xs) 15 ml PRN AFTMEALHC PRN PO DYSPEPSIA 08/24/20 18:15 Magnesium Hydroxide (Milk Of Magnesia) 2,400 mg PRN QHS PRN PO CONSTIPATION 08/24/20 18:15 Aspirin (Aspirin Chewable) 81 mg DAILY PO 08/25/20 09:00 10/17/20 08:22 Cetirizine HCl (ZyrTEC) 10 mg DAILY08 PO 08/25/20 08:00 10/17/20 08:22 Donepezil HCl (Aricept) 23 mg QHS PO 08/24/20 21:00 08/28/20 15:38 DC 08/27/20 20:34 Fluoxetine HCl (PROzac) 20 mg DAILY PO 08/25/20 09:00 10/17/20 08:21 Lorazepam (Ativan) 1 mg PRN Q4HRS PRN PO ANXIETY / AGITATION 08/24/20 18:45 09/04/20 16:12 DC 09/04/20 01:29 Atorvastatin Calcium (Lipitor) 40 mg QHS PO 08/24/20 21:00 10/16/20 20:03 Pantoprazole Sodium (Protonix) 40 mg DAILY08 PO 08/25/20 08:00 10/17/20 08:21 Multivitamins/ Calcium (Thera-M Plus) 1 tab DAILY PO 08/25/20 09:00 10/17/20 08:21 Mupirocin (Bactroban) 1 césar BID92 TP 08/25/20 09:00 09/03/20 12:35 DC 09/01/20 14:00 Fish Oil (Fish Oil) 1,000 mg DAILY PO 08/25/20 09:00 10/17/20 08:22 Olanzapine (ZyPREXA ZYDIS) 2.5 mg PRN Q2HR PRN PO PSYCHOSIS 08/24/20 19:45 09/21/20 19:44 Sertraline HCl (Zoloft) 25 mg DAILY PO 08/26/20 09:00 08/28/20 21:00 DC 08/28/20 08:37 Sertraline HCl (Zoloft) 50 mg DAILY PO 08/29/20 09:00 09/06/20 18:40 DC 09/04/20 08:58 Tamsulosin HCl (Flomax) 0.4 mg QHS PO 08/28/20 21:00 10/16/20 20:03 Mupirocin (Bactroban) 1 césar PRN BID PRN TP RASH 09/03/20 12:45 Diphenhydramine HCl (Benadryl) 50 mg 1X ONCE PO 09/04/20 21:00 09/04/20 21:01 DC 09/04/20 21:21 Olanzapine (ZyPREXA ZYDIS) 5 mg 1X ONCE PO 09/27/20 18:30 09/27/20 18:31 DC 09/27/20 18:30 Divalproex Sodium (Depakote Sprinkles) 125 mg 0900,1700 PO 09/28/20 17:00 10/12/20 17:08 DC 10/12/20 08:18 Furosemide (Lasix) 80 mg 1X ONCE PO 09/30/20 15:30 09/30/20 15:31 DC 09/30/20 16:00 Furosemide (Lasix) 80 mg DAILY PO 10/01/20 09:00 10/17/20 08:21 Potassium Chloride (Klor-Con) 20 meq DAILYWBKFT PO 10/01/20 08:00 10/17/20 08:21 Trazodone HCl (Desyrel) 50 mg PRN QHS PRN PO INSOMNIA 10/08/20 16:15 10/09/20 20:15 Divalproex Sodium (Depakote Sprinkles) 125 mg 0900,1300,1700,2100 PO 10/12/20 17:50 10/17/20 08:22 I have reviewed the current psychotropics carefully including drug interactions. Risk benefit ratio favors no change other than as noted in my dictated progress note. Diagnosis: Problems: (1) Impulse control disorder, unspecified (2) Anxiety disorder, unspecified (3) Dementia, vascular, with depression (4) Dementia, vascular, with delusions (5) Dementia in Alzheimer's disease with depression (6) Dementia in Alzheimer's disease with delusions (7) Dementia of the Alzheimer's type with early onset with behavioral disturbance (8) Major neurocognitive disorder VERENA AGUSTIN MD Oct 17, 2020 09:13
[2020-10-17 15:36] VITALS: BP 121/86
[2020-10-17] MEDS: ATORVASTATIN CALCIUM 20 MG TABLET PO SCH (19:43)
[2020-10-17] MEDS: TAMSULOSIN 0.4 MG CAP.ER.24H. PO SCH (19:43)
--- NOTE | 2020-10-17 22:02 | PDOC ---
Exam Note: Fercho Note: Please also refer to the separate dictated note~for this date of service dictated separately.~Patient seen individually. Discussed the patient with Nursing staff reviewed the chart.~Reviewed interim history and current functioning. Reviewed vital signs,~Labs/ Radiology~and current medications noted below. Continue current treatment with the changes noted in the dictated addendum note Assessment: Vital Signs/I&O: Vital Signs Date Time Temp Pulse Resp B/P (MAP) Pulse Ox O2 Delivery O2 Flow Rate FiO2 10/17/20 15:36 98.0 88 16 121/86 (98) 96 10/16/20 15:39 Room Air I & O 10/16/20 10/16/20 10/17/20 15:00 23:00 07:00 Intake Total 960 ml 480 ml Balance 960 ml 480 ml Current Medications: Meds: Current Medications Medications (Trade) Dose Ordered Sig/Ashvin Route PRN Reason Start Time Stop Time Status Last Admin Dose Admin Acetaminophen (Tylenol) 650 mg PRN Q6HRS PRN PO MILD PAIN / TEMP > 100.3'F 08/24/20 18:15 09/04/20 08:58 Multi-Ingredient Ointment (Analgesic [place]) 1 césar PRN QID PRN TP MUSCLE PAIN 08/24/20 18:15 Al Hydroxide/Mg Hydroxide (Mylanta Plus Xs) 15 ml PRN AFTMEALHC PRN PO DYSPEPSIA 08/24/20 18:15 Magnesium Hydroxide (Milk Of Magnesia) 2,400 mg PRN QHS PRN PO CONSTIPATION 08/24/20 18:15 Aspirin (Aspirin Chewable) 81 mg DAILY PO 08/25/20 09:00 10/17/20 08:22 Cetirizine HCl (ZyrTEC) 10 mg DAILY08 PO 08/25/20 08:00 10/17/20 08:22 Donepezil HCl (Aricept) 23 mg QHS PO 08/24/20 21:00 08/28/20 15:38 DC 08/27/20 20:34 Fluoxetine HCl (PROzac) 20 mg DAILY PO 08/25/20 09:00 10/17/20 08:21 Lorazepam (Ativan) 1 mg PRN Q4HRS PRN PO ANXIETY / AGITATION 08/24/20 18:45 09/04/20 16:12 DC 09/04/20 01:29 Atorvastatin Calcium (Lipitor) 40 mg QHS PO 08/24/20 21:00 10/17/20 19:43 Pantoprazole Sodium (Protonix) 40 mg DAILY08 PO 08/25/20 08:00 10/17/20 08:21 Multivitamins/ Calcium (Thera-M Plus) 1 tab DAILY PO 08/25/20 09:00 10/17/20 08:21 Mupirocin (Bactroban) 1 césar BID92 TP 08/25/20 09:00 09/03/20 12:35 DC 09/01/20 14:00 Fish Oil (Fish Oil) 1,000 mg DAILY PO 08/25/20 09:00 10/17/20 08:22 Olanzapine (ZyPREXA ZYDIS) 2.5 mg PRN Q2HR PRN PO PSYCHOSIS 08/24/20 19:45 09/21/20 19:44 Sertraline HCl (Zoloft) 25 mg DAILY PO 08/26/20 09:00 08/28/20 21:00 DC 08/28/20 08:37 Sertraline HCl (Zoloft) 50 mg DAILY PO 08/29/20 09:00 09/06/20 18:40 DC 09/04/20 08:58 Tamsulosin HCl (Flomax) 0.4 mg QHS PO 08/28/20 21:00 10/17/20 19:43 Mupirocin (Bactroban) 1 césar PRN BID PRN TP RASH 09/03/20 12:45 Diphenhydramine HCl (Benadryl) 50 mg 1X ONCE PO 09/04/20 21:00 09/04/20 21:01 DC 09/04/20 21:21 Olanzapine (ZyPREXA ZYDIS) 5 mg 1X ONCE PO 09/27/20 18:30 09/27/20 18:31 DC 09/27/20 18:30 Divalproex Sodium (Depakote Sprinkles) 125 mg 0900,1700 PO 09/28/20 17:00 10/12/20 17:08 DC 10/12/20 08:18 Furosemide (Lasix) 80 mg 1X ONCE PO 09/30/20 15:30 09/30/20 15:31 DC 09/30/20 16:00 Furosemide (Lasix) 80 mg DAILY PO 10/01/20 09:00 10/17/20 08:21 Potassium Chloride (Klor-Con) 20 meq DAILYWBKFT PO 10/01/20 08:00 10/17/20 08:21 Trazodone HCl (Desyrel) 50 mg PRN QHS PRN PO INSOMNIA 10/08/20 16:15 10/09/20 20:15 Divalproex Sodium (Depakote Sprinkles) 125 mg 0900,1300,1700,2100 PO 10/12/20 17:50 10/17/20 19:43 I have reviewed the current psychotropics carefully including drug interactions. Risk benefit ratio favors no change other than as noted in my dictated progress note. Diagnosis: Problems: (1) Impulse control disorder, unspecified (2) Anxiety disorder, unspecified (3) Dementia, vascular, with depression (4) Dementia, vascular, with delusions (5) Dementia in Alzheimer's disease with depression (6) Dementia in Alzheimer's disease with delusions (7) Dementia of the Alzheimer's type with early onset with behavioral disturbance (8) Major neurocognitive disorder VERENA AGUSTIN MD Oct 17, 2020 22:02
[2020-10-18 05:43] VITALS: BP 90/53
[2020-10-18] MEDS: DIVALPROEX 125 MG CAP.SPRINK PO SCH ×4 (08:20→20:00)
[2020-10-18] MEDS: FUROSEMIDE 40 MG TABLET PO SCH (08:20)
[2020-10-18] MEDS: CETIRIZINE HCL 10 MG TABLET PO SCH (08:20)
[2020-10-18] MEDS: POTASSIUM CHLORIDE 20 MEQ TABLET.ER. PO SCH (08:20)
[2020-10-18] MEDS: ASPIRIN CHEWABLE 81 MG TABLET. PO SCH (08:20)
[2020-10-18] MEDS: PANTOPRAZOLE 40 MG TABLET. PO SCH (08:20)
[2020-10-18] MEDS: OMEGA-3 FATTY ACIDS/FISH OIL 1,000 MG CAPSULE. PO SCH (08:21)
[2020-10-18] MEDS: MULTIVITAMIN with MINERAL TABLET. PO SCH (08:21)
--- NOTE | 2020-10-18 09:31 | PDOC ---
Exam Note: Fercho Note: This note is a late entry for 10/16/2020 covers elements not covered in my initial note. Subjective: The patient was seen on telehealth rounds in the afternoon of 10/16/2020 with the nursing staff taking the telehealth camera to each patient, which was on a secure portal, discussed and reviewed the chart with Brittany ABREU. He slept 6-1/2 hours previous night. Valproic acid level is 42, somewhat subtherapeutic but clinically adequate given that his behaviors appear stable. He is pleasant, smiling when I met with him individually. Appetite is fair. Review of Systems: No CV, , pulmonary, ENT system symptoms on review. Mental Status Exam: The patient is oriented to himself. Insight and judgment, recent and remote memory, attention and concentration fund of knowledge is poor consistent with his diagnoses. Laboratory Data: Reviewed. Impression: Major neurocognitive disorder Alzheimer vascular with delusion, depression, behavioral disturbance. Anxiety disorder unspecified. Impulse control disorder unspecified. Plan: Continue current psychotropics. Adjust further as clinically indicated. Assessment: Vital Signs/I&O: Vital Signs Date Time Temp Pulse Resp B/P (MAP) Pulse Ox O2 Delivery O2 Flow Rate FiO2 10/18/20 05:43 97.3 61 16 90/53 (65) 94 10/16/20 15:39 Room Air I & O 10/17/20 10/17/20 10/18/20 15:00 23:00 07:00 Intake Total 840 ml 600 ml Balance 840 ml 600 ml Current Medications: Meds: Current Medications Medications (Trade) Dose Ordered Sig/Ashvin Route PRN Reason Start Time Stop Time Status Last Admin Dose Admin Acetaminophen (Tylenol) 650 mg PRN Q6HRS PRN PO MILD PAIN / TEMP > 100.3'F 08/24/20 18:15 09/04/20 08:58 Multi-Ingredient Ointment (Analgesic [place]) 1 césar PRN QID PRN TP MUSCLE PAIN 08/24/20 18:15 Al Hydroxide/Mg Hydroxide (Mylanta Plus Xs) 15 ml PRN AFTMEALHC PRN PO DYSPEPSIA 08/24/20 18:15 Magnesium Hydroxide (Milk Of Magnesia) 2,400 mg PRN QHS PRN PO CONSTIPATION 08/24/20 18:15 Aspirin (Aspirin Chewable) 81 mg DAILY PO 08/25/20 09:00 10/18/20 08:20 Cetirizine HCl (ZyrTEC) 10 mg DAILY08 PO 08/25/20 08:00 10/18/20 08:20 Donepezil HCl (Aricept) 23 mg QHS PO 08/24/20 21:00 08/28/20 15:38 DC 08/27/20 20:34 Fluoxetine HCl (PROzac) 20 mg DAILY PO 08/25/20 09:00 10/18/20 08:20 Lorazepam (Ativan) 1 mg PRN Q4HRS PRN PO ANXIETY / AGITATION 08/24/20 18:45 09/04/20 16:12 DC 09/04/20 01:29 Atorvastatin Calcium (Lipitor) 40 mg QHS PO 08/24/20 21:00 10/17/20 19:43 Pantoprazole Sodium (Protonix) 40 mg DAILY08 PO 08/25/20 08:00 10/18/20 08:20 Multivitamins/ Calcium (Thera-M Plus) 1 tab DAILY PO 08/25/20 09:00 10/18/20 08:21 Mupirocin (Bactroban) 1 césar BID92 TP 08/25/20 09:00 09/03/20 12:35 DC 09/01/20 14:00 Fish Oil (Fish Oil) 1,000 mg DAILY PO 08/25/20 09:00 10/18/20 08:21 Olanzapine (ZyPREXA ZYDIS) 2.5 mg PRN Q2HR PRN PO PSYCHOSIS 08/24/20 19:45 09/21/20 19:44 Sertraline HCl (Zoloft) 25 mg DAILY PO 08/26/20 09:00 08/28/20 21:00 DC 08/28/20 08:37 Sertraline HCl (Zoloft) 50 mg DAILY PO 08/29/20 09:00 09/06/20 18:40 DC 09/04/20 08:58 Tamsulosin HCl (Flomax) 0.4 mg QHS PO 08/28/20 21:00 10/17/20 19:43 Mupirocin (Bactroban) 1 césar PRN BID PRN TP RASH 09/03/20 12:45 Diphenhydramine HCl (Benadryl) 50 mg 1X ONCE PO 09/04/20 21:00 09/04/20 21:01 DC 09/04/20 21:21 Olanzapine (ZyPREXA ZYDIS) 5 mg 1X ONCE PO 09/27/20 18:30 09/27/20 18:31 DC 09/27/20 18:30 Divalproex Sodium (Depakote Sprinkles) 125 mg 0900,1700 PO 09/28/20 17:00 10/12/20 17:08 DC 10/12/20 08:18 Furosemide (Lasix) 80 mg 1X ONCE PO 09/30/20 15:30 09/30/20 15:31 DC 09/30/20 16:00 Furosemide (Lasix) 80 mg DAILY PO 10/01/20 09:00 10/18/20 08:20 Potassium Chloride (Klor-Con) 20 meq DAILYWBKFT PO 10/01/20 08:00 10/18/20 08:20 Trazodone HCl (Desyrel) 50 mg PRN QHS PRN PO INSOMNIA 10/08/20 16:15 10/09/20 20:15 Divalproex Sodium (Depakote Sprinkles) 125 mg 0900,1300,1700,2100 PO 10/12/20 17:50 10/18/20 08:20 I have reviewed the current psychotropics carefully including drug interactions. Risk benefit ratio favors no change other than as noted in my dictated progress note. Diagnosis: Problems: (1) Impulse control disorder, unspecified (2) Anxiety disorder, unspecified (3) Dementia, vascular, with depression (4) Dementia, vascular, with delusions (5) Dementia in Alzheimer's disease with depression (6) Dementia in Alzheimer's disease with delusions (7) Dementia of the Alzheimer's type with early onset with behavioral disturbance (8) Major neurocognitive disorder VERENA AGUSTIN MD Oct 18, 2020 09:31
--- NOTE | 2020-10-18 09:55 | PDOC ---
Exam Note: Fercho Note: This note is a late entry for 10/17/2020 covers elements not covered in my initial note. Subjective: The patient was seen on telehealth rounds in the afternoon of 10/17/2020 with the Jose ABREU taking the telehealth camera to each patient, which was on a secure portal, discussed and reviewed the chart with Brittany ABREU. He slept 6-1/2 hours previous night. He remains confused, wanders the hallways but pleasant, has a gentle smile about his face which is typical for him. Review of Systems: No CV, , pulmonary, ENT system symptoms on review. Mental Status Exam: The patient is oriented to himself. Insight and judgment, recent and remote memory, attention and concentration fund of knowledge is poor consistent with his diagnoses. Laboratory Data: Reviewed. Impression: Major neurocognitive disorder Alzheimer vascular with delusion, depression, behavioral disturbance. Anxiety disorder unspecified. Impulse control disorder unspecified. Plan: Continue current psychotropics. Adjust further as clinically indicated. Assessment: Vital Signs/I&O: Vital Signs Date Time Temp Pulse Resp B/P (MAP) Pulse Ox O2 Delivery O2 Flow Rate FiO2 10/18/20 05:43 97.3 61 16 90/53 (65) 94 10/16/20 15:39 Room Air I & O 10/17/20 10/17/20 10/18/20 15:00 23:00 07:00 Intake Total 840 ml 600 ml Balance 840 ml 600 ml Current Medications: Meds: Current Medications Medications (Trade) Dose Ordered Sig/Ashvin Route PRN Reason Start Time Stop Time Status Last Admin Dose Admin Acetaminophen (Tylenol) 650 mg PRN Q6HRS PRN PO MILD PAIN / TEMP > 100.3'F 08/24/20 18:15 09/04/20 08:58 Multi-Ingredient Ointment (Analgesic [place]) 1 césra PRN QID PRN TP MUSCLE PAIN 08/24/20 18:15 Al Hydroxide/Mg Hydroxide (Mylanta Plus Xs) 15 ml PRN AFTMEALHC PRN PO DYSPEPSIA 08/24/20 18:15 Magnesium Hydroxide (Milk Of Magnesia) 2,400 mg PRN QHS PRN PO CONSTIPATION 08/24/20 18:15 Aspirin (Aspirin Chewable) 81 mg DAILY PO 08/25/20 09:00 10/18/20 08:20 Cetirizine HCl (ZyrTEC) 10 mg DAILY08 PO 08/25/20 08:00 10/18/20 08:20 Donepezil HCl (Aricept) 23 mg QHS PO 08/24/20 21:00 08/28/20 15:38 DC 08/27/20 20:34 Fluoxetine HCl (PROzac) 20 mg DAILY PO 08/25/20 09:00 10/18/20 08:20 Lorazepam (Ativan) 1 mg PRN Q4HRS PRN PO ANXIETY / AGITATION 08/24/20 18:45 09/04/20 16:12 DC 09/04/20 01:29 Atorvastatin Calcium (Lipitor) 40 mg QHS PO 08/24/20 21:00 10/17/20 19:43 Pantoprazole Sodium (Protonix) 40 mg DAILY08 PO 08/25/20 08:00 10/18/20 08:20 Multivitamins/ Calcium (Thera-M Plus) 1 tab DAILY PO 08/25/20 09:00 10/18/20 08:21 Mupirocin (Bactroban) 1 césar BID92 TP 08/25/20 09:00 09/03/20 12:35 DC 09/01/20 14:00 Fish Oil (Fish Oil) 1,000 mg DAILY PO 08/25/20 09:00 10/18/20 08:21 Olanzapine (ZyPREXA ZYDIS) 2.5 mg PRN Q2HR PRN PO PSYCHOSIS 08/24/20 19:45 09/21/20 19:44 Sertraline HCl (Zoloft) 25 mg DAILY PO 08/26/20 09:00 08/28/20 21:00 DC 08/28/20 08:37 Sertraline HCl (Zoloft) 50 mg DAILY PO 08/29/20 09:00 09/06/20 18:40 DC 09/04/20 08:58 Tamsulosin HCl (Flomax) 0.4 mg QHS PO 08/28/20 21:00 10/17/20 19:43 Mupirocin (Bactroban) 1 césar PRN BID PRN TP RASH 09/03/20 12:45 Diphenhydramine HCl (Benadryl) 50 mg 1X ONCE PO 09/04/20 21:00 09/04/20 21:01 DC 09/04/20 21:21 Olanzapine (ZyPREXA ZYDIS) 5 mg 1X ONCE PO 09/27/20 18:30 09/27/20 18:31 DC 09/27/20 18:30 Divalproex Sodium (Depakote Sprinkles) 125 mg 0900,1700 PO 09/28/20 17:00 10/12/20 17:08 DC 10/12/20 08:18 Furosemide (Lasix) 80 mg 1X ONCE PO 09/30/20 15:30 09/30/20 15:31 DC 09/30/20 16:00 Furosemide (Lasix) 80 mg DAILY PO 10/01/20 09:00 10/18/20 08:20 Potassium Chloride (Klor-Con) 20 meq DAILYWBKFT PO 10/01/20 08:00 10/18/20 08:20 Trazodone HCl (Desyrel) 50 mg PRN QHS PRN PO INSOMNIA 10/08/20 16:15 10/09/20 20:15 Divalproex Sodium (Depakote Sprinkles) 125 mg 0900,1300,1700,2100 PO 10/12/20 17:50 10/18/20 08:20 I have reviewed the current psychotropics carefully including drug interactions. Risk benefit ratio favors no change other than as noted in my dictated progress note. Diagnosis: Problems: (1) Impulse control disorder, unspecified (2) Anxiety disorder, unspecified (3) Dementia, vascular, with depression (4) Dementia, vascular, with delusions (5) Dementia in Alzheimer's disease with depression (6) Dementia in Alzheimer's disease with delusions (7) Dementia of the Alzheimer's type with early onset with behavioral disturbance (8) Major neurocognitive disorder VERENA AGUSTIN MD Oct 18, 2020 09:55
[2020-10-18 15:54] VITALS: BP 111/71
[2020-10-18] MEDS: ATORVASTATIN CALCIUM 20 MG TABLET PO SCH (20:00)
[2020-10-18] MEDS: TAMSULOSIN 0.4 MG CAP.ER.24H. PO SCH (20:00)
--- NOTE | 2020-10-18 21:58 | PDOC ---
Exam Note: Fercho Note: Please also refer to the separate dictated note~for this date of service dictated separately.~Patient seen individually. Discussed the patient with Nursing staff reviewed the chart.~Reviewed interim history and current functioning. Reviewed vital signs,~Labs/ Radiology~and current medications noted below. Continue current treatment with the changes noted in the dictated addendum note Assessment: Vital Signs/I&O: Vital Signs Date Time Temp Pulse Resp B/P (MAP) Pulse Ox O2 Delivery O2 Flow Rate FiO2 10/18/20 15:54 97.6 69 16 111/71 (84) 98 10/16/20 15:39 Room Air I & O 10/17/20 10/17/20 10/18/20 15:00 23:00 07:00 Intake Total 840 ml 600 ml Balance 840 ml 600 ml Current Medications: Meds: Current Medications Medications (Trade) Dose Ordered Sig/Ashvin Route PRN Reason Start Time Stop Time Status Last Admin Dose Admin Acetaminophen (Tylenol) 650 mg PRN Q6HRS PRN PO MILD PAIN / TEMP > 100.3'F 08/24/20 18:15 09/04/20 08:58 Multi-Ingredient Ointment (Analgesic [place]) 1 césar PRN QID PRN TP MUSCLE PAIN 08/24/20 18:15 Al Hydroxide/Mg Hydroxide (Mylanta Plus Xs) 15 ml PRN AFTMEALHC PRN PO DYSPEPSIA 08/24/20 18:15 Magnesium Hydroxide (Milk Of Magnesia) 2,400 mg PRN QHS PRN PO CONSTIPATION 08/24/20 18:15 Aspirin (Aspirin Chewable) 81 mg DAILY PO 08/25/20 09:00 10/18/20 08:20 Cetirizine HCl (ZyrTEC) 10 mg DAILY08 PO 08/25/20 08:00 10/18/20 08:20 Donepezil HCl (Aricept) 23 mg QHS PO 08/24/20 21:00 08/28/20 15:38 DC 08/27/20 20:34 Fluoxetine HCl (PROzac) 20 mg DAILY PO 08/25/20 09:00 10/18/20 08:20 Lorazepam (Ativan) 1 mg PRN Q4HRS PRN PO ANXIETY / AGITATION 08/24/20 18:45 09/04/20 16:12 DC 09/04/20 01:29 Atorvastatin Calcium (Lipitor) 40 mg QHS PO 08/24/20 21:00 10/18/20 20:00 Pantoprazole Sodium (Protonix) 40 mg DAILY08 PO 08/25/20 08:00 10/18/20 08:20 Multivitamins/ Calcium (Thera-M Plus) 1 tab DAILY PO 08/25/20 09:00 10/18/20 08:21 Mupirocin (Bactroban) 1 césar BID92 TP 08/25/20 09:00 09/03/20 12:35 DC 09/01/20 14:00 Fish Oil (Fish Oil) 1,000 mg DAILY PO 08/25/20 09:00 10/18/20 08:21 Olanzapine (ZyPREXA ZYDIS) 2.5 mg PRN Q2HR PRN PO PSYCHOSIS 08/24/20 19:45 09/21/20 19:44 Sertraline HCl (Zoloft) 25 mg DAILY PO 08/26/20 09:00 08/28/20 21:00 DC 08/28/20 08:37 Sertraline HCl (Zoloft) 50 mg DAILY PO 08/29/20 09:00 09/06/20 18:40 DC 09/04/20 08:58 Tamsulosin HCl (Flomax) 0.4 mg QHS PO 08/28/20 21:00 10/18/20 20:00 Mupirocin (Bactroban) 1 césar PRN BID PRN TP RASH 09/03/20 12:45 Diphenhydramine HCl (Benadryl) 50 mg 1X ONCE PO 09/04/20 21:00 09/04/20 21:01 DC 09/04/20 21:21 Olanzapine (ZyPREXA ZYDIS) 5 mg 1X ONCE PO 09/27/20 18:30 09/27/20 18:31 DC 09/27/20 18:30 Divalproex Sodium (Depakote Sprinkles) 125 mg 0900,1700 PO 09/28/20 17:00 10/12/20 17:08 DC 10/12/20 08:18 Furosemide (Lasix) 80 mg 1X ONCE PO 09/30/20 15:30 09/30/20 15:31 DC 09/30/20 16:00 Furosemide (Lasix) 80 mg DAILY PO 10/01/20 09:00 10/18/20 08:20 Potassium Chloride (Klor-Con) 20 meq DAILYWBKFT PO 10/01/20 08:00 10/18/20 08:20 Trazodone HCl (Desyrel) 50 mg PRN QHS PRN PO INSOMNIA 10/08/20 16:15 10/09/20 20:15 Divalproex Sodium (Depakote Sprinkles) 125 mg 0900,1300,1700,2100 PO 10/12/20 17:50 10/18/20 20:00 I have reviewed the current psychotropics carefully including drug interactions. Risk benefit ratio favors no change other than as noted in my dictated progress note. Diagnosis: Problems: (1) Impulse control disorder, unspecified (2) Anxiety disorder, unspecified (3) Dementia, vascular, with depression (4) Dementia, vascular, with delusions (5) Dementia in Alzheimer's disease with depression (6) Dementia in Alzheimer's disease with delusions (7) Dementia of the Alzheimer's type with early onset with behavioral disturbance (8) Major neurocognitive disorder VERENA AGUSTIN MD Oct 18, 2020 21:58
[2020-10-19 05:35] VITALS: BP 111/56
[2020-10-19] MEDS: DIVALPROEX 125 MG CAP.SPRINK PO SCH ×4 (08:01→20:23)
[2020-10-19] MEDS: PANTOPRAZOLE 40 MG TABLET. PO SCH (08:01)
[2020-10-19] MEDS: POTASSIUM CHLORIDE 20 MEQ TABLET.ER. PO SCH (08:01)
[2020-10-19] MEDS: MULTIVITAMIN with MINERAL TABLET. PO SCH (08:01)
[2020-10-19] MEDS: CETIRIZINE HCL 10 MG TABLET PO SCH (08:01)
[2020-10-19] MEDS: FUROSEMIDE 40 MG TABLET PO SCH (08:02)
[2020-10-19] MEDS: ASPIRIN CHEWABLE 81 MG TABLET. PO SCH (08:02)
[2020-10-19] MEDS: OMEGA-3 FATTY ACIDS/FISH OIL 1,000 MG CAPSULE. PO SCH (08:02)
[2020-10-19] MEDS: ACETAMINOPHEN 325 MG TABLET PO PRN (14:44)
[2020-10-19 16:05] VITALS: BP 98/63
[2020-10-19] MEDS: ATORVASTATIN CALCIUM 20 MG TABLET PO SCH (20:23)
[2020-10-19] MEDS: TAMSULOSIN 0.4 MG CAP.ER.24H. PO SCH (20:23)
--- NOTE | 2020-10-19 22:36 | PDOC ---
Exam Note: Fercho Note: Please also refer to the separate dictated note~for this date of service dictated separately.~Patient seen individually. Discussed the patient with Nursing staff reviewed the chart.~Reviewed interim history and current functioning. Reviewed vital signs,~Labs/ Radiology~and current medications noted below. Continue current treatment with the changes noted in the dictated addendum note Assessment: Vital Signs/I&O: Vital Signs Date Time Temp Pulse Resp B/P (MAP) Pulse Ox O2 Delivery O2 Flow Rate FiO2 10/19/20 16:05 97.9 78 16 98/63 (75) 100 Room Air I & O 10/18/20 10/18/20 10/19/20 14:59 22:59 06:59 Intake Total 570 ml 720 ml Balance 570 ml 720 ml Current Medications: Meds: Current Medications Medications (Trade) Dose Ordered Sig/Ashvin Route PRN Reason Start Time Stop Time Status Last Admin Dose Admin Acetaminophen (Tylenol) 650 mg PRN Q6HRS PRN PO MILD PAIN / TEMP > 100.3'F 08/24/20 18:15 10/19/20 14:44 Multi-Ingredient Ointment (Analgesic [place]) 1 césar PRN QID PRN TP MUSCLE PAIN 08/24/20 18:15 Al Hydroxide/Mg Hydroxide (Mylanta Plus Xs) 15 ml PRN AFTMEALHC PRN PO DYSPEPSIA 08/24/20 18:15 Magnesium Hydroxide (Milk Of Magnesia) 2,400 mg PRN QHS PRN PO CONSTIPATION 08/24/20 18:15 Aspirin (Aspirin Chewable) 81 mg DAILY PO 08/25/20 09:00 10/19/20 08:02 Cetirizine HCl (ZyrTEC) 10 mg DAILY08 PO 08/25/20 08:00 10/19/20 08:01 Donepezil HCl (Aricept) 23 mg QHS PO 08/24/20 21:00 08/28/20 15:38 DC 08/27/20 20:34 Fluoxetine HCl (PROzac) 20 mg DAILY PO 08/25/20 09:00 10/19/20 08:01 Lorazepam (Ativan) 1 mg PRN Q4HRS PRN PO ANXIETY / AGITATION 08/24/20 18:45 09/04/20 16:12 DC 09/04/20 01:29 Atorvastatin Calcium (Lipitor) 40 mg QHS PO 08/24/20 21:00 10/19/20 20:23 Pantoprazole Sodium (Protonix) 40 mg DAILY08 PO 08/25/20 08:00 10/19/20 08:01 Multivitamins/ Calcium (Thera-M Plus) 1 tab DAILY PO 08/25/20 09:00 10/19/20 08:01 Mupirocin (Bactroban) 1 césar BID92 TP 08/25/20 09:00 09/03/20 12:35 DC 09/01/20 14:00 Fish Oil (Fish Oil) 1,000 mg DAILY PO 08/25/20 09:00 10/19/20 08:02 Olanzapine (ZyPREXA ZYDIS) 2.5 mg PRN Q2HR PRN PO PSYCHOSIS 08/24/20 19:45 09/21/20 19:44 Sertraline HCl (Zoloft) 25 mg DAILY PO 08/26/20 09:00 08/28/20 21:00 DC 08/28/20 08:37 Sertraline HCl (Zoloft) 50 mg DAILY PO 08/29/20 09:00 09/06/20 18:40 DC 09/04/20 08:58 Tamsulosin HCl (Flomax) 0.4 mg QHS PO 08/28/20 21:00 10/19/20 20:23 Mupirocin (Bactroban) 1 césar PRN BID PRN TP RASH 09/03/20 12:45 Diphenhydramine HCl (Benadryl) 50 mg 1X ONCE PO 09/04/20 21:00 09/04/20 21:01 DC 09/04/20 21:21 Olanzapine (ZyPREXA ZYDIS) 5 mg 1X ONCE PO 09/27/20 18:30 09/27/20 18:31 DC 09/27/20 18:30 Divalproex Sodium (Depakote Sprinkles) 125 mg 0900,1700 PO 09/28/20 17:00 10/12/20 17:08 DC 10/12/20 08:18 Furosemide (Lasix) 80 mg 1X ONCE PO 09/30/20 15:30 09/30/20 15:31 DC 09/30/20 16:00 Furosemide (Lasix) 80 mg DAILY PO 10/01/20 09:00 10/19/20 08:02 Potassium Chloride (Klor-Con) 20 meq DAILYWBKFT PO 10/01/20 08:00 10/19/20 08:01 Trazodone HCl (Desyrel) 50 mg PRN QHS PRN PO INSOMNIA 10/08/20 16:15 10/09/20 20:15 Divalproex Sodium (Depakote Sprinkles) 125 mg 0900,1300,1700,2100 PO 10/12/20 17:50 10/19/20 20:23 I have reviewed the current psychotropics carefully including drug interactions. Risk benefit ratio favors no change other than as noted in my dictated progress note. Diagnosis: Problems: (1) Impulse control disorder, unspecified (2) Anxiety disorder, unspecified (3) Dementia, vascular, with depression (4) Dementia, vascular, with delusions (5) Dementia in Alzheimer's disease with depression (6) Dementia in Alzheimer's disease with delusions (7) Dementia of the Alzheimer's type with early onset with behavioral disturbance (8) Major neurocognitive disorder VERENA AGUSTIN MD Oct 19, 2020 22:36
[2020-10-20 06:01] VITALS: BP 123/73
[2020-10-20] MEDS: POTASSIUM CHLORIDE 20 MEQ TABLET.ER. PO SCH (08:16)
[2020-10-20] MEDS: CETIRIZINE HCL 10 MG TABLET PO SCH (08:16)
[2020-10-20] MEDS: PANTOPRAZOLE 40 MG TABLET. PO SCH (08:16)
[2020-10-20] MEDS: OMEGA-3 FATTY ACIDS/FISH OIL 1,000 MG CAPSULE. PO SCH (08:17)
[2020-10-20] MEDS: FUROSEMIDE 40 MG TABLET PO SCH (08:17)
[2020-10-20] MEDS: MULTIVITAMIN with MINERAL TABLET. PO SCH (08:17)
[2020-10-20] MEDS: DIVALPROEX 125 MG CAP.SPRINK PO SCH ×4 (08:17→21:45)
[2020-10-20] MEDS: ASPIRIN CHEWABLE 81 MG TABLET. PO SCH (08:17)
--- NOTE | 2020-10-20 09:03 | PDOC ---
Exam Note: Fercho Note: This note is a late entry for 10/18/2020 covers elements not covered in my initial note. Subjective: The patient was seen on telehealth rounds in the afternoon of 10/18/2020 with nursing staff with the telehealth camera, discussed and reviewed the chart with Frieda ABREU. He slept 6 hours previous night. He remains confused, wandering the hallways. Social service staff are actively trying to find placement for him. I have redone an admission history to incorporate his positive changes since admission, medication changes to help facilitate being accepted at the intermediate but so far social service staff have not been able to get a placement for him despite great effort. He did attend some groups during the day on 10/18. Review of Systems: No CV, , pulmonary, ENT system symptoms on review. Mental Status Exam: The patient is oriented to himself. He is pleasant, smiling. Insight and judgment, recent and remote memory, attention and concentration fund of knowledge is poor consistent with his diagnoses. Laboratory Data: Reviewed. Impression: Major neurocognitive disorder Alzheimer vascular with delusion, depression, behavioral disturbance. Anxiety disorder unspecified. Impulse control disorder unspecified. Plan: Continue current psychotropics. Valproic acid level at last check was 42 and slightly subtherapeutic but clinically adequate. Assessment: Vital Signs/I&O: Vital Signs Date Time Temp Pulse Resp B/P (MAP) Pulse Ox O2 Delivery O2 Flow Rate FiO2 10/20/20 06:01 97.2 84 14 123/73 (90) 99 Room Air I & O 10/19/20 10/19/20 10/20/20 15:00 23:00 07:00 Intake Total 720 ml 960 ml Balance 720 ml 960 ml Current Medications: Meds: Current Medications Medications (Trade) Dose Ordered Sig/Ashvin Route PRN Reason Start Time Stop Time Status Last Admin Dose Admin Acetaminophen (Tylenol) 650 mg PRN Q6HRS PRN PO MILD PAIN / TEMP > 100.3'F 08/24/20 18:15 10/19/20 14:44 Multi-Ingredient Ointment (Analgesic [place]) 1 césar PRN QID PRN TP MUSCLE PAIN 08/24/20 18:15 Al Hydroxide/Mg Hydroxide (Mylanta Plus Xs) 15 ml PRN AFTMEALHC PRN PO DYSPEPSIA 08/24/20 18:15 Magnesium Hydroxide (Milk Of Magnesia) 2,400 mg PRN QHS PRN PO CONSTIPATION 08/24/20 18:15 Aspirin (Aspirin Chewable) 81 mg DAILY PO 08/25/20 09:00 10/20/20 08:17 Cetirizine HCl (ZyrTEC) 10 mg DAILY08 PO 08/25/20 08:00 10/20/20 08:16 Donepezil HCl (Aricept) 23 mg QHS PO 08/24/20 21:00 08/28/20 15:38 DC 08/27/20 20:34 Fluoxetine HCl (PROzac) 20 mg DAILY PO 08/25/20 09:00 10/20/20 08:17 Lorazepam (Ativan) 1 mg PRN Q4HRS PRN PO ANXIETY / AGITATION 08/24/20 18:45 09/04/20 16:12 DC 09/04/20 01:29 Atorvastatin Calcium (Lipitor) 40 mg QHS PO 08/24/20 21:00 10/19/20 20:23 Pantoprazole Sodium (Protonix) 40 mg DAILY08 PO 08/25/20 08:00 10/20/20 08:16 Multivitamins/ Calcium (Thera-M Plus) 1 tab DAILY PO 08/25/20 09:00 10/20/20 08:17 Mupirocin (Bactroban) 1 césar BID92 TP 08/25/20 09:00 09/03/20 12:35 DC 09/01/20 14:00 Fish Oil (Fish Oil) 1,000 mg DAILY PO 08/25/20 09:00 10/20/20 08:17 Olanzapine (ZyPREXA ZYDIS) 2.5 mg PRN Q2HR PRN PO PSYCHOSIS 08/24/20 19:45 09/21/20 19:44 Sertraline HCl (Zoloft) 25 mg DAILY PO 08/26/20 09:00 08/28/20 21:00 DC 08/28/20 08:37 Sertraline HCl (Zoloft) 50 mg DAILY PO 08/29/20 09:00 09/06/20 18:40 DC 09/04/20 08:58 Tamsulosin HCl (Flomax) 0.4 mg QHS PO 08/28/20 21:00 10/19/20 20:23 Mupirocin (Bactroban) 1 césar PRN BID PRN TP RASH 09/03/20 12:45 Diphenhydramine HCl (Benadryl) 50 mg 1X ONCE PO 09/04/20 21:00 09/04/20 21:01 DC 09/04/20 21:21 Olanzapine (ZyPREXA ZYDIS) 5 mg 1X ONCE PO 09/27/20 18:30 09/27/20 18:31 DC 09/27/20 18:30 Divalproex Sodium (Depakote Sprinkles) 125 mg 0900,1700 PO 09/28/20 17:00 10/12/20 17:08 DC 10/12/20 08:18 Furosemide (Lasix) 80 mg 1X ONCE PO 09/30/20 15:30 09/30/20 15:31 DC 09/30/20 16:00 Furosemide (Lasix) 80 mg DAILY PO 10/01/20 09:00 10/20/20 08:17 Potassium Chloride (Klor-Con) 20 meq DAILYWBKFT PO 10/01/20 08:00 10/20/20 08:16 Trazodone HCl (Desyrel) 50 mg PRN QHS PRN PO INSOMNIA 10/08/20 16:15 10/09/20 20:15 Divalproex Sodium (Depakote Sprinkles) 125 mg 0900,1300,1700,2100 PO 10/12/20 17:50 10/20/20 08:17 I have reviewed the current psychotropics carefully including drug interactions. Risk benefit ratio favors no change other than as noted in my dictated progress note. Diagnosis: Problems: (1) Impulse control disorder, unspecified (2) Anxiety disorder, unspecified (3) Dementia, vascular, with depression (4) Dementia, vascular, with delusions (5) Dementia in Alzheimer's disease with depression (6) Dementia in Alzheimer's disease with delusions (7) Dementia of the Alzheimer's type with early onset with behavioral disturbance (8) Major neurocognitive disorder VERENA AGUSTIN MD Oct 20, 2020 09:03
--- NOTE | 2020-10-20 12:56 | TX PLAN ---
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 Change Sleep, Confusion/Disoriented, Poor impulse control, Other Problem in Patient's Words: I cannot care for him at home. Additional Admission Comments: According to the intake, pt was anxious, wandering, restless, insomnia, posturing [facility] staff, struck which resulted in police response Problems Active Problems: wandering restless Inactive Problems: medication compliant Pt Strengths/Limitations Ability for [place]: Poor Cognitive Functioning/Ability: Fair Communication Skills/Ability: Fair Financial Resources: Poor Insight/Judgement: Poor Intellectual Ability: Poor Physical Health: Fair Social Skills: Fair Stability in Family: Fair Stability in School/Work: Poor Verbal Skills: Fair Discharge Criteria Discharge Criteria: No need for close observ., Adequate arrangements @DC, Improved behavior, Improved mood/thought Preliminary Discharge Plan Preliminary DC Plan: Placement Needed Special Precautions Fall Risk: Low Initial D/C Plan Pt is not able to discharge home, will need placement once stable. Identified Discharge Needs: Referral for higher level of care Currently Utilized Resources Currently Utilized Resources/P: Primary Care Physician Identified Problems/Hx/Goals Objectives/Short-Term Goals Short Term Goals: Dec. Aggression, Dec. Outbursts, Medication Stabilization, Monitor Med Effects Short Term Goals in Patient's: N/A Interventions/Frequency Staff Interventions/Frequency&: Psychiatrist to assess pt at least 3x per week for medication management. Social Work to assess pt at least 2x per week to identify barriers to care and finalize discharge planning. Nursing to assess medication effects, behavior modification, and completion of 15 minute checks daily. Encourage participation in group activities (if applicable) or 1:1 engagement based off Activity Dept goals. 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 He received a Bachelors in Sociology. Community Follow-up Primary Care Physician Referrals to higher level of care Community Provider/Family Inpu: Pt has become increasingly aggressive towards his , who is caring for pt. She is not able to care for pt at home any longer. 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 Pt is calm and compliant with medications; cooperative with all cares. Pt was a bit more confused last night but was redirectable. Pt attended 8 groups this last week with minimal to moderate participation; some tearfulness was noted in one group. Pt will be assessed by [facility] on Saturday; discharge RAVINDRA. WALESKA HARRELL Oct 20, 2020 12:56
[2020-10-20 16:15] VITALS: BP 115/78
[2020-10-20] MEDS: TAMSULOSIN 0.4 MG CAP.ER.24H. PO SCH (21:45)
[2020-10-20] MEDS: ATORVASTATIN CALCIUM 20 MG TABLET PO SCH (21:45)
--- NOTE | 2020-10-20 21:53 | PDOC ---
Exam Note: Fercho Note: Please also refer to the separate dictated note~for this date of service dictated separately.~Patient seen individually. Discussed the patient with Nursing staff reviewed the chart.~Reviewed interim history and current functioning. Reviewed vital signs,~Labs/ Radiology~and current medications noted below. Continue current treatment with the changes noted in the dictated addendum note Assessment: Vital Signs/I&O: Vital Signs Date Time Temp Pulse Resp B/P (MAP) Pulse Ox O2 Delivery O2 Flow Rate FiO2 10/20/20 16:15 97.9 82 18 115/78 (90) 99 Room Air I & O 10/19/20 10/19/20 10/20/20 15:00 23:00 07:00 Intake Total 720 ml 960 ml Balance 720 ml 960 ml Labs: Laboratory Tests Test 10/20/20 06:00 SARS-CoV-2 (PCR) Negative (NEGATIVE) Current Medications: Meds: Laboratory Tests Test 10/20/20 06:00 Coronavirus (COVID-19)(PCR) Negative Current Medications Medications (Trade) Dose Ordered Sig/Ashvin Route PRN Reason Start Time Stop Time Status Last Admin Dose Admin Acetaminophen (Tylenol) 650 mg PRN Q6HRS PRN PO MILD PAIN / TEMP > 100.3'F 08/24/20 18:15 10/19/20 14:44 Multi-Ingredient Ointment (Analgesic [place]) 1 césar PRN QID PRN TP MUSCLE PAIN 08/24/20 18:15 Al Hydroxide/Mg Hydroxide (Mylanta Plus Xs) 15 ml PRN AFTMEALHC PRN PO DYSPEPSIA 08/24/20 18:15 Magnesium Hydroxide (Milk Of Magnesia) 2,400 mg PRN QHS PRN PO CONSTIPATION 08/24/20 18:15 Aspirin (Aspirin Chewable) 81 mg DAILY PO 08/25/20 09:00 10/20/20 08:17 Cetirizine HCl (ZyrTEC) 10 mg DAILY08 PO 08/25/20 08:00 10/20/20 08:16 Donepezil HCl (Aricept) 23 mg QHS PO 08/24/20 21:00 08/28/20 15:38 DC 08/27/20 20:34 Fluoxetine HCl (PROzac) 20 mg DAILY PO 08/25/20 09:00 10/20/20 08:17 Lorazepam (Ativan) 1 mg PRN Q4HRS PRN PO ANXIETY / AGITATION 08/24/20 18:45 09/04/20 16:12 DC 09/04/20 01:29 Atorvastatin Calcium (Lipitor) 40 mg QHS PO 08/24/20 21:00 10/20/20 21:45 Pantoprazole Sodium (Protonix) 40 mg DAILY08 PO 08/25/20 08:00 10/20/20 08:16 Multivitamins/ Calcium (Thera-M Plus) 1 tab DAILY PO 08/25/20 09:00 10/20/20 08:17 Mupirocin (Bactroban) 1 césar BID92 TP 08/25/20 09:00 09/03/20 12:35 DC 09/01/20 14:00 Fish Oil (Fish Oil) 1,000 mg DAILY PO 08/25/20 09:00 10/20/20 08:17 Olanzapine (ZyPREXA ZYDIS) 2.5 mg PRN Q2HR PRN PO PSYCHOSIS 08/24/20 19:45 09/21/20 19:44 Sertraline HCl (Zoloft) 25 mg DAILY PO 08/26/20 09:00 08/28/20 21:00 DC 08/28/20 08:37 Sertraline HCl (Zoloft) 50 mg DAILY PO 08/29/20 09:00 09/06/20 18:40 DC 09/04/20 08:58 Tamsulosin HCl (Flomax) 0.4 mg QHS PO 08/28/20 21:00 10/20/20 21:45 Mupirocin (Bactroban) 1 césar PRN BID PRN TP RASH 09/03/20 12:45 Diphenhydramine HCl (Benadryl) 50 mg 1X ONCE PO 09/04/20 21:00 09/04/20 21:01 DC 09/04/20 21:21 Olanzapine (ZyPREXA ZYDIS) 5 mg 1X ONCE PO 09/27/20 18:30 09/27/20 18:31 DC 09/27/20 18:30 Divalproex Sodium (Depakote Sprinkles) 125 mg 0900,1700 PO 09/28/20 17:00 10/12/20 17:08 DC 10/12/20 08:18 Furosemide (Lasix) 80 mg 1X ONCE PO 09/30/20 15:30 09/30/20 15:31 DC 09/30/20 16:00 Furosemide (Lasix) 80 mg DAILY PO 10/01/20 09:00 10/20/20 08:17 Potassium Chloride (Klor-Con) 20 meq DAILYWBKFT PO 10/01/20 08:00 10/20/20 08:16 Trazodone HCl (Desyrel) 50 mg PRN QHS PRN PO INSOMNIA 10/08/20 16:15 10/09/20 20:15 Divalproex Sodium (Depakote Sprinkles) 125 mg 0900,1300,1700,2100 PO 10/12/20 17:50 10/20/20 21:45 I have reviewed the current psychotropics carefully including drug interactions. Risk benefit ratio favors no change other than as noted in my dictated progress note. Diagnosis: Problems: (1) Impulse control disorder, unspecified (2) Anxiety disorder, unspecified (3) Dementia, vascular, with depression (4) Dementia, vascular, with delusions (5) Dementia in Alzheimer's disease with depression (6) Dementia in Alzheimer's disease with delusions (7) Dementia of the Alzheimer's type with early onset with behavioral disturbance (8) Major neurocognitive disorder VERENA AGUSTIN MD Oct 20, 2020 21:53
[2020-10-21 06:05] VITALS: BP 118/77
[2020-10-21] MEDS: PANTOPRAZOLE 40 MG TABLET. PO SCH (06:05)
[2020-10-21] MEDS: DIVALPROEX 125 MG CAP.SPRINK PO SCH ×4 (08:11→20:02)
[2020-10-21] MEDS: OMEGA-3 FATTY ACIDS/FISH OIL 1,000 MG CAPSULE. PO SCH (08:11)
[2020-10-21] MEDS: CETIRIZINE HCL 10 MG TABLET PO SCH (08:11)
[2020-10-21] MEDS: POTASSIUM CHLORIDE 20 MEQ TABLET.ER. PO SCH (08:11)
[2020-10-21] MEDS: ASPIRIN CHEWABLE 81 MG TABLET. PO SCH (08:11)
[2020-10-21] MEDS: FUROSEMIDE 40 MG TABLET PO SCH (08:12)
[2020-10-21] MEDS: MULTIVITAMIN with MINERAL TABLET. PO SCH (08:12)
[2020-10-21 15:54] VITALS: BP 112/67
[2020-10-21] MEDS: ATORVASTATIN CALCIUM 20 MG TABLET PO SCH (20:02)
[2020-10-21] MEDS: TAMSULOSIN 0.4 MG CAP.ER.24H. PO SCH (20:02)
--- NOTE | 2020-10-21 21:52 | PDOC ---
Exam Note: Fercho Note: This note is a late entry for 10/19/2020 covers elements not covered in my initial note. Subjective: The patient was seen on telehealth rounds in the afternoon of 10/19/2020 as an option during the COVID-19 pandemic period with Spring ABREU, discussed and reviewed the chart. He slept 5 hours previous night. He remains confused, wanders up and down the hallways, pleasant, smiling as I met with him individually. Review of Systems: No CV, , pulmonary, ENT system symptoms on review. Mental Status Exam: The patient is oriented to himself. He is pleasant, smiling. Insight and judgment, recent and remote memory, attention and concentration fund of knowledge is poor consistent with his diagnoses. Laboratory Data: Reviewed. Impression: Major neurocognitive disorder Alzheimer vascular with delusion, depression, behavioral disturbance. Anxiety disorder unspecified. Impulse control disorder unspecified. Plan: Continue current psychotropics. We are still awaiting for the social service staff to find placement but from a psychiatric standpoint he is ready to be discharged once appropriate placement is secured. Assessment: Vital Signs/I&O: Vital Signs Date Time Temp Pulse Resp B/P (MAP) Pulse Ox O2 Delivery O2 Flow Rate FiO2 10/21/20 15:54 97.6 68 20 112/67 (82) 98 10/20/20 16:15 Room Air I & O 10/20/20 10/20/20 10/21/20 15:00 23:00 07:00 Intake Total 480 ml 480 ml Balance 480 ml 480 ml Current Medications: Meds: Current Medications Medications (Trade) Dose Ordered Sig/Ashvin Route PRN Reason Start Time Stop Time Status Last Admin Dose Admin Acetaminophen (Tylenol) 650 mg PRN Q6HRS PRN PO MILD PAIN / TEMP > 100.3'F 08/24/20 18:15 10/19/20 14:44 Multi-Ingredient Ointment (Analgesic [place]) 1 césar PRN QID PRN TP MUSCLE PAIN 08/24/20 18:15 Al Hydroxide/Mg Hydroxide (Mylanta Plus Xs) 15 ml PRN AFTMEALHC PRN PO DYSPEPSIA 08/24/20 18:15 Magnesium Hydroxide (Milk Of Magnesia) 2,400 mg PRN QHS PRN PO CONSTIPATION 08/24/20 18:15 Aspirin (Aspirin Chewable) 81 mg DAILY PO 08/25/20 09:00 10/21/20 08:11 Cetirizine HCl (ZyrTEC) 10 mg DAILY08 PO 08/25/20 08:00 10/21/20 08:11 Donepezil HCl (Aricept) 23 mg QHS PO 08/24/20 21:00 08/28/20 15:38 DC 08/27/20 20:34 Fluoxetine HCl (PROzac) 20 mg DAILY PO 08/25/20 09:00 10/21/20 08:11 Lorazepam (Ativan) 1 mg PRN Q4HRS PRN PO ANXIETY / AGITATION 08/24/20 18:45 09/04/20 16:12 DC 09/04/20 01:29 Atorvastatin Calcium (Lipitor) 40 mg QHS PO 08/24/20 21:00 10/21/20 20:02 Pantoprazole Sodium (Protonix) 40 mg DAILY08 PO 08/25/20 08:00 10/21/20 06:05 Multivitamins/ Calcium (Thera-M Plus) 1 tab DAILY PO 08/25/20 09:00 10/21/20 08:12 Mupirocin (Bactroban) 1 césar BID92 TP 08/25/20 09:00 09/03/20 12:35 DC 09/01/20 14:00 Fish Oil (Fish Oil) 1,000 mg DAILY PO 08/25/20 09:00 10/21/20 08:11 Olanzapine (ZyPREXA ZYDIS) 2.5 mg PRN Q2HR PRN PO PSYCHOSIS 08/24/20 19:45 09/21/20 19:44 Sertraline HCl (Zoloft) 25 mg DAILY PO 08/26/20 09:00 08/28/20 21:00 DC 08/28/20 08:37 Sertraline HCl (Zoloft) 50 mg DAILY PO 08/29/20 09:00 09/06/20 18:40 DC 09/04/20 08:58 Tamsulosin HCl (Flomax) 0.4 mg QHS PO 08/28/20 21:00 10/21/20 20:02 Mupirocin (Bactroban) 1 césar PRN BID PRN TP RASH 09/03/20 12:45 Diphenhydramine HCl (Benadryl) 50 mg 1X ONCE PO 09/04/20 21:00 09/04/20 21:01 DC 09/04/20 21:21 Olanzapine (ZyPREXA ZYDIS) 5 mg 1X ONCE PO 09/27/20 18:30 09/27/20 18:31 DC 09/27/20 18:30 Divalproex Sodium (Depakote Sprinkles) 125 mg 0900,1700 PO 09/28/20 17:00 10/12/20 17:08 DC 10/12/20 08:18 Furosemide (Lasix) 80 mg 1X ONCE PO 09/30/20 15:30 09/30/20 15:31 DC 09/30/20 16:00 Furosemide (Lasix) 80 mg DAILY PO 10/01/20 09:00 10/21/20 08:12 Potassium Chloride (Klor-Con) 20 meq DAILYWBKFT PO 10/01/20 08:00 10/21/20 08:11 Trazodone HCl (Desyrel) 50 mg PRN QHS PRN PO INSOMNIA 10/08/20 16:15 10/09/20 20:15 Divalproex Sodium (Depakote Sprinkles) 125 mg 0900,1300,1700,2100 PO 10/12/20 17:50 10/21/20 17:01 DC 10/21/20 12:26 Divalproex Sodium (Depakote Sprinkles) 125 mg 1300,1700 PO 10/21/20 17:00 10/21/20 17:25 Divalproex Sodium (Depakote Sprinkles) 250 mg 0900,2100 PO 10/21/20 21:00 10/21/20 20:02 Current Medications Medications (Trade) Dose Ordered Sig/Ashvin Route PRN Reason Start Time Stop Time Status Last Admin Dose Admin Divalproex Sodium (Depakote Sprinkles) 125 mg 1300,1700 PO 10/21/20 17:00 10/21/20 17:25 Divalproex Sodium (Depakote Sprinkles) 250 mg 0900,2100 PO 10/21/20 21:00 10/21/20 20:02 I have reviewed the current psychotropics carefully including drug interactions. Risk benefit ratio favors no change other than as noted in my dictated progress note. Diagnosis: Problems: (1) Impulse control disorder, unspecified (2) Anxiety disorder, unspecified (3) Dementia, vascular, with depression (4) Dementia, vascular, with delusions (5) Dementia in Alzheimer's disease with depression (6) Dementia in Alzheimer's disease with delusions (7) Dementia of the Alzheimer's type with early onset with behavioral disturbance (8) Major neurocognitive disorder VERENA AGUSTIN MD Oct 21, 2020 21:52
--- NOTE | 2020-10-21 22:23 | PDOC ---
Exam Note: Fercho Note: This note is a late entry for 10/20/2020 covers elements not covered in my initial note. Subjective: The patient was reviewed on telehealth rounds in the morning of 10/20/2020 as an option during the COVID-19 pandemic period for a treatment team meeting with Niecy Naqvi, Ingris Serrano (high school social studies teacher), Ingrid, activity therapy and Brittany discussed and reviewed the chart. We discussed the patients diagnoses, progress, current psychotropics, reviewed drug interactions, risk-benefit ratio of current psychotropics. He slept 6-3/4 hours previous night. Appetite is 100%. Previous evening he was confused when taking his medications. He has been accepted at [facility] who will be visiting him to confirm this. He attended 8 groups previous week. Mental Status Exam: The patient is oriented to himself. He is pleasant, smiling. Insight and judgment, recent and remote memory, attention and concentration fund of knowledge is poor consistent with his diagnoses. Laboratory Data: Reviewed. Impression: Major neurocognitive disorder Alzheimer vascular with delusion, depression, behavioral disturbance. Anxiety disorder unspecified. Impulse control disorder unspecified. Plan: Continue current psychotropics. Assessment: Vital Signs/I&O: Vital Signs Date Time Temp Pulse Resp B/P (MAP) Pulse Ox O2 Delivery O2 Flow Rate FiO2 10/21/20 15:54 97.6 68 20 112/67 (82) 98 10/20/20 16:15 Room Air I & O 10/20/20 10/20/20 10/21/20 15:00 23:00 07:00 Intake Total 480 ml 480 ml Balance 480 ml 480 ml Current Medications: Meds: Current Medications Medications (Trade) Dose Ordered Sig/[place] Route PRN Reason Start Time Stop Time Status Last Admin Dose Admin Acetaminophen (Tylenol) 650 mg PRN Q6HRS PRN PO MILD PAIN / TEMP > 100.3'F 08/24/20 18:15 10/19/20 14:44 Multi-Ingredient Ointment (Analgesic [place]) 1 césar PRN QID PRN TP MUSCLE PAIN 08/24/20 18:15 Al Hydroxide/Mg Hydroxide (Mylanta Plus Xs) 15 ml PRN AFTMEALHC PRN PO DYSPEPSIA 08/24/20 18:15 Magnesium Hydroxide (Milk Of Magnesia) 2,400 mg PRN QHS PRN PO CONSTIPATION 08/24/20 18:15 Aspirin (Aspirin Chewable) 81 mg DAILY PO 08/25/20 09:00 10/21/20 08:11 Cetirizine HCl (ZyrTEC) 10 mg DAILY08 PO 08/25/20 08:00 10/21/20 08:11 Donepezil HCl (Aricept) 23 mg QHS PO 08/24/20 21:00 08/28/20 15:38 DC 08/27/20 20:34 Fluoxetine HCl (PROzac) 20 mg DAILY PO 08/25/20 09:00 10/21/20 08:11 Lorazepam (Ativan) 1 mg PRN Q4HRS PRN PO ANXIETY / AGITATION 08/24/20 18:45 09/04/20 16:12 DC 09/04/20 01:29 Atorvastatin Calcium (Lipitor) 40 mg QHS PO 08/24/20 21:00 10/21/20 20:02 Pantoprazole Sodium (Protonix) 40 mg DAILY08 PO 08/25/20 08:00 10/21/20 06:05 Multivitamins/ Calcium (Thera-M Plus) 1 tab DAILY PO 08/25/20 09:00 10/21/20 08:12 Mupirocin (Bactroban) 1 césar BID92 TP 08/25/20 09:00 09/03/20 12:35 DC 09/01/20 14:00 Fish Oil (Fish Oil) 1,000 mg DAILY PO 08/25/20 09:00 10/21/20 08:11 Olanzapine (ZyPREXA ZYDIS) 2.5 mg PRN Q2HR PRN PO PSYCHOSIS 08/24/20 19:45 09/21/20 19:44 Sertraline HCl (Zoloft) 25 mg DAILY PO 08/26/20 09:00 08/28/20 21:00 DC 08/28/20 08:37 Sertraline HCl (Zoloft) 50 mg DAILY PO 08/29/20 09:00 09/06/20 18:40 DC 09/04/20 08:58 Tamsulosin HCl (Flomax) 0.4 mg QHS PO 08/28/20 21:00 10/21/20 20:02 Mupirocin (Bactroban) 1 césar PRN BID PRN TP RASH 09/03/20 12:45 Diphenhydramine HCl (Benadryl) 50 mg 1X ONCE PO 09/04/20 21:00 09/04/20 21:01 DC 09/04/20 21:21 Olanzapine (ZyPREXA ZYDIS) 5 mg 1X ONCE PO 09/27/20 18:30 09/27/20 18:31 DC 09/27/20 18:30 Divalproex Sodium (Depakote Sprinkles) 125 mg 0900,1700 PO 09/28/20 17:00 10/12/20 17:08 DC 10/12/20 08:18 Furosemide (Lasix) 80 mg 1X ONCE PO 09/30/20 15:30 09/30/20 15:31 DC 09/30/20 16:00 Furosemide (Lasix) 80 mg DAILY PO 10/01/20 09:00 10/21/20 08:12 Potassium Chloride (Klor-Con) 20 meq DAILYWBKFT PO 10/01/20 08:00 10/21/20 08:11 Trazodone HCl (Desyrel) 50 mg PRN QHS PRN PO INSOMNIA 10/08/20 16:15 10/09/20 20:15 Divalproex Sodium (Depakote Sprinkles) 125 mg 0900,1300,1700,2100 PO 10/12/20 17:50 10/21/20 17:01 DC 10/21/20 12:26 Divalproex Sodium (Depakote Sprinkles) 125 mg 1300,1700 PO 10/21/20 17:00 10/21/20 17:25 Divalproex Sodium (Depakote Sprinkles) 250 mg 0900,2100 PO 10/21/20 21:00 10/21/20 20:02 Current Medications Medications (Trade) Dose Ordered Sig/Ashvin Route PRN Reason Start Time Stop Time Status Last Admin Dose Admin Divalproex Sodium (Depakote Sprinkles) 125 mg 1300,1700 PO 10/21/20 17:00 10/21/20 17:25 Divalproex Sodium (Depakote Sprinkles) 250 mg 0900,2100 PO 10/21/20 21:00 10/21/20 20:02 I have reviewed the current psychotropics carefully including drug interactions. Risk benefit ratio favors no change other than as noted in my dictated progress note. Diagnosis: Problems: (1) Impulse control disorder, unspecified (2) Anxiety disorder, unspecified (3) Dementia, vascular, with depression (4) Dementia, vascular, with delusions (5) Dementia in Alzheimer's disease with depression (6) Dementia in Alzheimer's disease with delusions (7) Dementia of the Alzheimer's type with early onset with behavioral disturbance (8) Major neurocognitive disorder VERENA AGUSTIN MD Oct 21, 2020 22:23
--- NOTE | 2020-10-21 22:48 | PDOC ---
Exam Note: Fercho Note: Please also refer to the separate dictated note~for this date of service dictated separately.~Patient seen individually. Discussed the patient with Nursing staff reviewed the chart.~Reviewed interim history and current functioning. Reviewed vital signs,~Labs/ Radiology~and current medications noted below. Continue current treatment with the changes noted in the dictated addendum note Assessment: Vital Signs/I&O: Vital Signs Date Time Temp Pulse Resp B/P (MAP) Pulse Ox O2 Delivery O2 Flow Rate FiO2 10/21/20 15:54 97.6 68 20 112/67 (82) 98 10/20/20 16:15 Room Air I & O 10/20/20 10/20/20 10/21/20 15:00 23:00 07:00 Intake Total 480 ml 480 ml Balance 480 ml 480 ml Current Medications: Meds: Current Medications Medications (Trade) Dose Ordered Sig/Ashvin Route PRN Reason Start Time Stop Time Status Last Admin Dose Admin Divalproex Sodium (Depakote Sprinkles) 125 mg 1300,1700 PO 10/21/20 17:00 10/21/20 17:25 Divalproex Sodium (Depakote Sprinkles) 250 mg 0900,2100 PO 10/21/20 21:00 10/21/20 20:02 I have reviewed the current psychotropics carefully including drug interactions. Risk benefit ratio favors no change other than as noted in my dictated progress note. Diagnosis: Problems: (1) Impulse control disorder, unspecified (2) Anxiety disorder, unspecified (3) Dementia, vascular, with depression (4) Dementia, vascular, with delusions (5) Dementia in Alzheimer's disease with depression (6) Dementia in Alzheimer's disease with delusions (7) Dementia of the Alzheimer's type with early onset with behavioral disturbance (8) Major neurocognitive disorder VERENA AGUSTIN MD Oct 21, 2020 22:48
[2020-10-22 05:50] VITALS: BP 118/70
[2020-10-22] MEDS: OMEGA-3 FATTY ACIDS/FISH OIL 1,000 MG CAPSULE. PO SCH (08:23)
[2020-10-22] MEDS: ASPIRIN CHEWABLE 81 MG TABLET. PO SCH (08:23)
[2020-10-22] MEDS: MULTIVITAMIN with MINERAL TABLET. PO SCH (08:23)
[2020-10-22] MEDS: FUROSEMIDE 40 MG TABLET PO SCH (08:23)
[2020-10-22] MEDS: POTASSIUM CHLORIDE 20 MEQ TABLET.ER. PO SCH (08:24)
[2020-10-22] MEDS: CETIRIZINE HCL 10 MG TABLET PO SCH (08:24)
[2020-10-22] MEDS: PANTOPRAZOLE 40 MG TABLET. PO SCH (08:24)
[2020-10-22] MEDS: DIVALPROEX 125 MG CAP.SPRINK PO SCH ×4 (08:24→19:57)
[2020-10-22 15:34] VITALS: BP 110/67
[2020-10-22] MEDS: TAMSULOSIN 0.4 MG CAP.ER.24H. PO SCH (19:57)
[2020-10-22] MEDS: ATORVASTATIN CALCIUM 20 MG TABLET PO SCH (19:57)
--- NOTE | 2020-10-22 22:25 | PDOC ---
Exam Note: Fercho Note: Please also refer to the separate dictated note~for this date of service dictated separately.~Patient seen individually. Discussed the patient with Nursing staff reviewed the chart.~Reviewed interim history and current functioning. Reviewed vital signs,~Labs/ Radiology~and current medications noted below. Continue current treatment with the changes noted in the dictated addendum note Assessment: Vital Signs/I&O: Vital Signs Date Time Temp Pulse Resp B/P (MAP) Pulse Ox O2 Delivery O2 Flow Rate FiO2 10/22/20 15:34 97.8 87 18 110/67 (81) 96 10/22/20 05:50 Room Air I & O 10/21/20 10/21/20 10/22/20 15:00 23:00 07:00 Intake Total 840 ml 600 ml Balance 840 ml 600 ml Current Medications: I have reviewed the current psychotropics carefully including drug interactions. Risk benefit ratio favors no change other than as noted in my dictated progress note. Diagnosis: Problems: (1) Impulse control disorder, unspecified (2) Anxiety disorder, unspecified (3) Dementia, vascular, with depression (4) Dementia, vascular, with delusions (5) Dementia in Alzheimer's disease with depression (6) Dementia in Alzheimer's disease with delusions (7) Dementia of the Alzheimer's type with early onset with behavioral disturbance (8) Major neurocognitive disorder VERENA AGUSTIN MD Oct 22, 2020 22:25
[2020-10-23 05:41] VITALS: BP 120/66
[2020-10-23 07:22] LABS: BASO # 0.1 x10^3/uL (0.0-0.2); BASO % 1 % (0-3); EOS # 0.2 x10^3/uL (0.0-0.7); EOS % 3 % (0-3); HEMATOCRIT 36.4 % (39.0-53.0); HEMOGLOBIN 12.1 g/dL (13.0-17.5); LYMPH # 1.5 x10^3/uL (1.0-4.8); LYMPH % 22 % (24-48); MEAN CORPUSCULAR HEMOGLOBIN 30 pg (25-35); MEAN CORPUSCULAR HGB CONC 33 g/dL (31-37); MEAN CORPUSCULAR VOLUME 89 fL (79-100); MONO # 0.7 x10^3/uL (0.0-1.1); MONO % 10 % (0-9); NEUT # 4.4 x10^3uL (1.8-7.7); NEUT % 64 % (31-73); PLATELET COUNT 209 x10^3/uL (140-400); RED CELL DISTRIBUTION WIDTH 14.4 % (11.5-14.5); WHITE BLOOD COUNT 6.9 x10^3/uL (4.0-11.0)
[2020-10-23 07:48] LABS: ALBUMIN 3.3 g/dL (3.4-5.0); ALBUMIN/GLOBULIN RATIO 1.1 (1.0-1.7); CALCIUM 8.1 mg/dL (8.5-10.1); CREATININE 1.6 mg/dL (0.7-1.3); GFR 42.6; POTASSIUM 3.6 mmol/L (3.5-5.1); TOTAL BILIRUBIN 0.6 mg/dL (0.2-1.0); TOTAL PROTEIN 6.2 g/dL (6.4-8.2)
--- NOTE | 2020-10-23 09:12 | PDOC ---
Exam Note: Fercho Note: This note is a late entry for 10/21/2020 covers elements not covered in my initial note. Subjective: The patient was seen on telehealth rounds in the afternoon of 10/21/2020 as an option during the COVID-19 pandemic period with Izabel ABREU, discussed and reviewed the chart. He slept 6-1/2 hours previous night. The patient gets more confused in the evening, wandering; otherwise, pleasant, smiling. I was called late in the night on 10/21 by nursing staff. The patient had become extremely aggressive towards another demented patient on the unit and was found folding her arms and trying to twist it and caused skin tear on the arm. Staff intervened he was . There didnt seem to any provocation for this. Mental Status Exam: The patient is oriented to himself. Insight and judgment, recent and remote memory, attention and concentration fund of knowledge is poor consistent with his diagnoses. Laboratory Data: Reviewed. Impression: Major neurocognitive disorder Alzheimer vascular with delusion, depression, behavioral disturbance. Anxiety disorder unspecified. Impulse control disorder unspecified. Plan: We will increase his Depakote 125 mg 4 times a day to 250 mg twice a day and 125 mg twice a day. Check CBC, CMP, valproic acid level in 3 days. Rest of the psychotropics unchanged. Adjust further as clinically indicated. Assessment: Vital Signs/I&O: Vital Signs Date Time Temp Pulse Resp B/P (MAP) Pulse Ox O2 Delivery O2 Flow Rate FiO2 10/23/20 05:41 96.8 51 14 120/66 (84) 94 10/22/20 05:50 Room Air I & O 10/22/20 10/22/20 10/23/20 15:00 23:00 07:00 Intake Total 720 ml 480 ml Balance 720 ml 480 ml Labs: Laboratory Tests Test 10/23/20 06:35 White Blood Count 6.9 x10^3/uL (4.0-11.0) Red Blood Count 4.10 x10^6/uL (4.30-5.70) L Hemoglobin 12.1 g/dL (13.0-17.5) L Hematocrit 36.4 % (39.0-53.0) L Mean Corpuscular Volume 89 fL (79-100) Mean Corpuscular Hemoglobin 30 pg (25-35) Mean Corpuscular Hemoglobin Concent 33 g/dL (31-37) Red Cell Distribution Width 14.4 % (11.5-14.5) Platelet Count 209 x10^3/uL (140-400) Neutrophils (%) (Auto) 64 % (31-73) Lymphocytes (%) (Auto) 22 % (24-48) L Monocytes (%) (Auto) 10 % (0-9) H Eosinophils (%) (Auto) 3 % (0-3) Basophils (%) (Auto) 1 % (0-3) Neutrophils # (Auto) 4.4 x10^3uL (1.8-7.7) Lymphocytes # (Auto) 1.5 x10^3/uL (1.0-4.8) Monocytes # (Auto) 0.7 x10^3/uL (0.0-1.1) Eosinophils # (Auto) 0.2 x10^3/uL (0.0-0.7) Basophils # (Auto) 0.1 x10^3/uL (0.0-0.2) Sodium Level 145 mmol/L (136-145) Potassium Level 3.6 mmol/L (3.5-5.1) Chloride Level 107 mmol/L (98-107) Carbon Dioxide Level 31 mmol/L (21-32) Anion Gap 7 (6-14) Blood Urea Nitrogen 40 mg/dL (8-26) H Creatinine 1.6 mg/dL (0.7-1.3) H Estimated GFR (Cockcroft-Gault) 42.6 BUN/Creatinine Ratio 25 (6-20) H Glucose Level 91 mg/dL (70-99) Calcium Level 8.1 mg/dL (8.5-10.1) L Total Bilirubin 0.6 mg/dL (0.2-1.0) Aspartate Amino Transferase (AST) 21 U/L (15-37) Alanine Aminotransferase (ALT) 28 U/L (16-63) Alkaline Phosphatase 57 U/L (46-116) Total Protein 6.2 g/dL (6.4-8.2) L Albumin 3.3 g/dL (3.4-5.0) L Albumin/Globulin Ratio 1.1 (1.0-1.7) Current Medications: Meds: Laboratory Tests Test 10/23/20 06:35 White Blood Count 6.9 x10^3/uL Red Blood Count 4.10 x10^6/uL Hemoglobin 12.1 g/dL Hematocrit 36.4 % Mean Corpuscular Volume 89 fL Mean Corpuscular Hemoglobin 30 pg Mean Corpuscular Hemoglobin Concent 33 g/dL Red Cell Distribution Width 14.4 % Platelet Count 209 x10^3/uL Neutrophils (%) (Auto) 64 % Lymphocytes (%) (Auto) 22 % Monocytes (%) (Auto) 10 % Eosinophils (%) (Auto) 3 % Basophils (%) (Auto) 1 % Neutrophils # (Auto) 4.4 x10^3uL Lymphocytes # (Auto) 1.5 x10^3/uL Monocytes # (Auto) 0.7 x10^3/uL Eosinophils # (Auto) 0.2 x10^3/uL Basophils # (Auto) 0.1 x10^3/uL Sodium Level 145 mmol/L Potassium Level 3.6 mmol/L Chloride Level 107 mmol/L Carbon Dioxide Level 31 mmol/L Anion Gap 7 Blood Urea Nitrogen 40 mg/dL Creatinine 1.6 mg/dL Estimated GFR (Cockcroft-Gault) 42.6 BUN/Creatinine Ratio 25 Glucose Level 91 mg/dL Calcium Level 8.1 mg/dL Total Bilirubin 0.6 mg/dL Aspartate Amino Transf (AST/SGOT) 21 U/L Alanine Aminotransferase (ALT/SGPT) 28 U/L Alkaline Phosphatase 57 U/L Total Protein 6.2 g/dL Albumin 3.3 g/dL Albumin/Globulin Ratio 1.1 Current Medications Medications (Trade) Dose Ordered Sig/Ashvin Route PRN Reason Start Time Stop Time Status Last Admin Dose Admin Acetaminophen (Tylenol) 650 mg PRN Q6HRS PRN PO MILD PAIN / TEMP > 100.3'F 08/24/20 18:15 10/19/20 14:44 Multi-Ingredient Ointment (Analgesic [place]) 1 césar PRN QID PRN TP MUSCLE PAIN 08/24/20 18:15 Al Hydroxide/Mg Hydroxide (Mylanta Plus Xs) 15 ml PRN AFTMEALHC PRN PO DYSPEPSIA 08/24/20 18:15 Magnesium Hydroxide (Milk Of Magnesia) 2,400 mg PRN QHS PRN PO CONSTIPATION 08/24/20 18:15 Aspirin (Aspirin Chewable) 81 mg DAILY PO 08/25/20 09:00 10/22/20 08:23 Cetirizine HCl (ZyrTEC) 10 mg DAILY08 PO 08/25/20 08:00 10/22/20 08:24 Donepezil HCl (Aricept) 23 mg QHS PO 08/24/20 21:00 08/28/20 15:38 DC 08/27/20 20:34 Fluoxetine HCl (PROzac) 20 mg DAILY PO 08/25/20 09:00 10/22/20 08:24 Lorazepam (Ativan) 1 mg PRN Q4HRS PRN PO ANXIETY / AGITATION 08/24/20 18:45 09/04/20 16:12 DC 09/04/20 01:29 Atorvastatin Calcium (Lipitor) 40 mg QHS PO 08/24/20 21:00 10/22/20 19:57 Pantoprazole Sodium (Protonix) 40 mg DAILY08 PO 08/25/20 08:00 10/22/20 08:24 Multivitamins/ Calcium (Thera-M Plus) 1 tab DAILY PO 08/25/20 09:00 10/22/20 08:23 Mupirocin (Bactroban) 1 césar BID92 TP 08/25/20 09:00 09/03/20 12:35 DC 09/01/20 14:00 Fish Oil (Fish Oil) 1,000 mg DAILY PO 08/25/20 09:00 10/22/20 08:23 Olanzapine (ZyPREXA ZYDIS) 2.5 mg PRN Q2HR PRN PO PSYCHOSIS 08/24/20 19:45 09/21/20 19:44 Sertraline HCl (Zoloft) 25 mg DAILY PO 08/26/20 09:00 08/28/20 21:00 DC 08/28/20 08:37 Sertraline HCl (Zoloft) 50 mg DAILY PO 08/29/20 09:00 09/06/20 18:40 DC 09/04/20 08:58 Tamsulosin HCl (Flomax) 0.4 mg QHS PO 08/28/20 21:00 10/22/20 19:57 Mupirocin (Bactroban) 1 césar PRN BID PRN TP RASH 09/03/20 12:45 Diphenhydramine HCl (Benadryl) 50 mg 1X ONCE PO 09/04/20 21:00 09/04/20 21:01 DC 09/04/20 21:21 Olanzapine (ZyPREXA ZYDIS) 5 mg 1X ONCE PO 09/27/20 18:30 09/27/20 18:31 DC 09/27/20 18:30 Divalproex Sodium (Depakote Sprinkles) 125 mg 0900,1700 PO 09/28/20 17:00 10/12/20 17:08 DC 10/12/20 08:18 Furosemide (Lasix) 80 mg 1X ONCE PO 09/30/20 15:30 09/30/20 15:31 DC 09/30/20 16:00 Furosemide (Lasix) 80 mg DAILY PO 10/01/20 09:00 10/22/20 08:23 Potassium Chloride (Klor-Con) 20 meq DAILYWBKFT PO 10/01/20 08:00 10/22/20 08:24 Trazodone HCl (Desyrel) 50 mg PRN QHS PRN PO INSOMNIA 10/08/20 16:15 10/09/20 20:15 Divalproex Sodium (Depakote Sprinkles) 125 mg 0900,1300,1700,2100 PO 10/12/20 17:50 10/21/20 17:01 DC 10/21/20 12:26 Divalproex Sodium (Depakote Sprinkles) 125 mg 1300,1700 PO 10/21/20 17:00 10/22/20 17:34 Divalproex Sodium (Depakote Sprinkles) 250 mg 0900,2100 PO 10/21/20 21:00 10/22/20 19:57 I have reviewed the current psychotropics carefully including drug interactions. Risk benefit ratio favors no change other than as noted in my dictated progress note. Diagnosis: Problems: (1) Impulse control disorder, unspecified (2) Anxiety disorder, unspecified (3) Dementia, vascular, with depression (4) Dementia, vascular, with delusions (5) Dementia in Alzheimer's disease with depression (6) Dementia in Alzheimer's disease with delusions (7) Dementia of the Alzheimer's type with early onset with behavioral disturbance (8) Major neurocognitive disorder VERENA AGUSTIN MD Oct 23, 2020 09:11
--- NOTE | 2020-10-23 09:40 | PDOC ---
Exam Note: Fercho Note: This note is a late entry for 10/22/2020 covers elements not covered in my initial note. Subjective: The patient was seen on telehealth rounds in the afternoon of 10/22/2020 as an option during the COVID-19 pandemic period with Spring ABREU, discussed and reviewed the chart. He slept 7 hours previous night. There has been no further aggression or disruptive behaviors. The patient is tolerating the increased Depakote which was initiated on 10/21 because of aggression with another patient. Mental Status Exam: The patient is awake, alert, oriented to himself. He is pleasant, smiling. Insight and judgment, recent and remote memory, attention and concentration, fund of knowledge is poor consistent with his diagnoses. Laboratory Data: Reviewed. Impression: Major neurocognitive disorder Alzheimer vascular with delusion, depression, behavioral disturbance. Anxiety disorder unspecified. Impulse control disorder unspecified. Plan: Continue current psychotropics with increased Depakote. Rest unchanged for now. Assessment: Vital Signs/I&O: Vital Signs Date Time Temp Pulse Resp B/P (MAP) Pulse Ox O2 Delivery O2 Flow Rate FiO2 10/23/20 05:41 96.8 51 14 120/66 (84) 94 10/22/20 05:50 Room Air I & O 10/22/20 10/22/20 10/23/20 15:00 23:00 07:00 Intake Total 720 ml 480 ml Balance 720 ml 480 ml Labs: Laboratory Tests Test 10/23/20 06:35 White Blood Count 6.9 x10^3/uL (4.0-11.0) Red Blood Count 4.10 x10^6/uL (4.30-5.70) L Hemoglobin 12.1 g/dL (13.0-17.5) L Hematocrit 36.4 % (39.0-53.0) L Mean Corpuscular Volume 89 fL (79-100) Mean Corpuscular Hemoglobin 30 pg (25-35) Mean Corpuscular Hemoglobin Concent 33 g/dL (31-37) Red Cell Distribution Width 14.4 % (11.5-14.5) Platelet Count 209 x10^3/uL (140-400) Neutrophils (%) (Auto) 64 % (31-73) Lymphocytes (%) (Auto) 22 % (24-48) L Monocytes (%) (Auto) 10 % (0-9) H Eosinophils (%) (Auto) 3 % (0-3) Basophils (%) (Auto) 1 % (0-3) Neutrophils # (Auto) 4.4 x10^3uL (1.8-7.7) Lymphocytes # (Auto) 1.5 x10^3/uL (1.0-4.8) Monocytes # (Auto) 0.7 x10^3/uL (0.0-1.1) Eosinophils # (Auto) 0.2 x10^3/uL (0.0-0.7) Basophils # (Auto) 0.1 x10^3/uL (0.0-0.2) Sodium Level 145 mmol/L (136-145) Potassium Level 3.6 mmol/L (3.5-5.1) Chloride Level 107 mmol/L (98-107) Carbon Dioxide Level 31 mmol/L (21-32) Anion Gap 7 (6-14) Blood Urea Nitrogen 40 mg/dL (8-26) H Creatinine 1.6 mg/dL (0.7-1.3) H Estimated GFR (Cockcroft-Gault) 42.6 BUN/Creatinine Ratio 25 (6-20) H Glucose Level 91 mg/dL (70-99) Calcium Level 8.1 mg/dL (8.5-10.1) L Total Bilirubin 0.6 mg/dL (0.2-1.0) Aspartate Amino Transferase (AST) 21 U/L (15-37) Alanine Aminotransferase (ALT) 28 U/L (16-63) Alkaline Phosphatase 57 U/L (46-116) Total Protein 6.2 g/dL (6.4-8.2) L Albumin 3.3 g/dL (3.4-5.0) L Albumin/Globulin Ratio 1.1 (1.0-1.7) Current Medications: Meds: Laboratory Tests Test 10/23/20 06:35 White Blood Count 6.9 x10^3/uL Red Blood Count 4.10 x10^6/uL Hemoglobin 12.1 g/dL Hematocrit 36.4 % Mean Corpuscular Volume 89 fL Mean Corpuscular Hemoglobin 30 pg Mean Corpuscular Hemoglobin Concent 33 g/dL Red Cell Distribution Width 14.4 % Platelet Count 209 x10^3/uL Neutrophils (%) (Auto) 64 % Lymphocytes (%) (Auto) 22 % Monocytes (%) (Auto) 10 % Eosinophils (%) (Auto) 3 % Basophils (%) (Auto) 1 % Neutrophils # (Auto) 4.4 x10^3uL Lymphocytes # (Auto) 1.5 x10^3/uL Monocytes # (Auto) 0.7 x10^3/uL Eosinophils # (Auto) 0.2 x10^3/uL Basophils # (Auto) 0.1 x10^3/uL Sodium Level 145 mmol/L Potassium Level 3.6 mmol/L Chloride Level 107 mmol/L Carbon Dioxide Level 31 mmol/L Anion Gap 7 Blood Urea Nitrogen 40 mg/dL Creatinine 1.6 mg/dL Estimated GFR (Cockcroft-Gault) 42.6 BUN/Creatinine Ratio 25 Glucose Level 91 mg/dL Calcium Level 8.1 mg/dL Total Bilirubin 0.6 mg/dL Aspartate Amino Transf (AST/SGOT) 21 U/L Alanine Aminotransferase (ALT/SGPT) 28 U/L Alkaline Phosphatase 57 U/L Total Protein 6.2 g/dL Albumin 3.3 g/dL Albumin/Globulin Ratio 1.1 Current Medications Medications (Trade) Dose Ordered Sig/Ashvin Route PRN Reason Start Time Stop Time Status Last Admin Dose Admin Acetaminophen (Tylenol) 650 mg PRN Q6HRS PRN PO MILD PAIN / TEMP > 100.3'F 08/24/20 18:15 10/19/20 14:44 Multi-Ingredient Ointment (Analgesic [place]) 1 césar PRN QID PRN TP MUSCLE PAIN 08/24/20 18:15 Al Hydroxide/Mg Hydroxide (Mylanta Plus Xs) 15 ml PRN AFTMEALHC PRN PO DYSPEPSIA 08/24/20 18:15 Magnesium Hydroxide (Milk Of Magnesia) 2,400 mg PRN QHS PRN PO CONSTIPATION 08/24/20 18:15 Aspirin (Aspirin Chewable) 81 mg DAILY PO 08/25/20 09:00 10/22/20 08:23 Cetirizine HCl (ZyrTEC) 10 mg DAILY08 PO 08/25/20 08:00 10/22/20 08:24 Donepezil HCl (Aricept) 23 mg QHS PO 08/24/20 21:00 08/28/20 15:38 DC 08/27/20 20:34 Fluoxetine HCl (PROzac) 20 mg DAILY PO 08/25/20 09:00 10/22/20 08:24 Lorazepam (Ativan) 1 mg PRN Q4HRS PRN PO ANXIETY / AGITATION 08/24/20 18:45 09/04/20 16:12 DC 09/04/20 01:29 Atorvastatin Calcium (Lipitor) 40 mg QHS PO 08/24/20 21:00 10/22/20 19:57 Pantoprazole Sodium (Protonix) 40 mg DAILY08 PO 08/25/20 08:00 10/22/20 08:24 Multivitamins/ Calcium (Thera-M Plus) 1 tab DAILY PO 08/25/20 09:00 10/22/20 08:23 Mupirocin (Bactroban) 1 césar BID92 TP 08/25/20 09:00 09/03/20 12:35 DC 09/01/20 14:00 Fish Oil (Fish Oil) 1,000 mg DAILY PO 08/25/20 09:00 10/22/20 08:23 Olanzapine (ZyPREXA ZYDIS) 2.5 mg PRN Q2HR PRN PO PSYCHOSIS 08/24/20 19:45 09/21/20 19:44 Sertraline HCl (Zoloft) 25 mg DAILY PO 08/26/20 09:00 08/28/20 21:00 DC 08/28/20 08:37 Sertraline HCl (Zoloft) 50 mg DAILY PO 08/29/20 09:00 09/06/20 18:40 DC 09/04/20 08:58 Tamsulosin HCl (Flomax) 0.4 mg QHS PO 08/28/20 21:00 10/22/20 19:57 Mupirocin (Bactroban) 1 césar PRN BID PRN TP RASH 09/03/20 12:45 Diphenhydramine HCl (Benadryl) 50 mg 1X ONCE PO 09/04/20 21:00 09/04/20 21:01 DC 09/04/20 21:21 Olanzapine (ZyPREXA ZYDIS) 5 mg 1X ONCE PO 09/27/20 18:30 09/27/20 18:31 DC 09/27/20 18:30 Divalproex Sodium (Depakote Sprinkles) 125 mg 00,1700 PO 09/28/20 17:00 10/12/20 17:08 DC 10/12/20 08:18 Furosemide (Lasix) 80 mg 1X ONCE PO 09/30/20 15:30 09/30/20 15:31 DC 09/30/20 16:00 Furosemide (Lasix) 80 mg DAILY PO 10/01/20 09:00 10/22/20 08:23 Potassium Chloride (Klor-Con) 20 meq DAILYWBKFT PO 10/01/20 08:00 10/22/20 08:24 Trazodone HCl (Desyrel) 50 mg PRN QHS PRN PO INSOMNIA 10/08/20 16:15 10/09/20 20:15 Divalproex Sodium (Depakote Sprinkles) 125 mg 0900,1300,1700,2100 PO 10/12/20 17:50 10/21/20 17:01 DC 10/21/20 12:26 Divalproex Sodium (Depakote Sprinkles) 125 mg 1300,1700 PO 10/21/20 17:00 10/22/20 17:34 Divalproex Sodium (Depakote Sprinkles) 250 mg 0900,2100 PO 10/21/20 21:00 10/22/20 19:57 I have reviewed the current psychotropics carefully including drug interactions. Risk benefit ratio favors no change other than as noted in my dictated progress note. Diagnosis: Problems: (1) Impulse control disorder, unspecified (2) Anxiety disorder, unspecified (3) Dementia, vascular, with depression (4) Dementia, vascular, with delusions (5) Dementia in Alzheimer's disease with depression (6) Dementia in Alzheimer's disease with delusions (7) Dementia of the Alzheimer's type with early onset with behavioral disturbance (8) Major neurocognitive disorder VERENA AGUSTIN MD Oct 23, 2020 09:40
[2020-10-23] MEDS: CETIRIZINE HCL 10 MG TABLET PO SCH (12:06)
[2020-10-23] MEDS: MULTIVITAMIN with MINERAL TABLET. PO SCH (12:06)
[2020-10-23] MEDS: FUROSEMIDE 40 MG TABLET PO SCH (12:07)
[2020-10-23] MEDS: OMEGA-3 FATTY ACIDS/FISH OIL 1,000 MG CAPSULE. PO SCH (12:07)
[2020-10-23] MEDS: PANTOPRAZOLE 40 MG TABLET. PO SCH (12:07)
[2020-10-23] MEDS: ASPIRIN CHEWABLE 81 MG TABLET. PO SCH (12:07)
[2020-10-23] MEDS: POTASSIUM CHLORIDE 20 MEQ TABLET.ER. PO SCH (12:07)
[2020-10-23] MEDS: DIVALPROEX 125 MG CAP.SPRINK PO SCH ×4 (12:08→20:29)
[2020-10-23 16:28] VITALS: BP 116/75
[2020-10-23] MEDS: TAMSULOSIN 0.4 MG CAP.ER.24H. PO SCH (20:29)
[2020-10-23] MEDS: ATORVASTATIN CALCIUM 20 MG TABLET PO SCH (20:30)
--- NOTE | 2020-10-23 21:54 | PDOC ---
Exam Note: Fercho Note: Please also refer to the separate dictated note~for this date of service dictated separately.~Patient seen individually. Discussed the patient with Nursing staff reviewed the chart.~Reviewed interim history and current functioning. Reviewed vital signs,~Labs/ Radiology~and current medications noted below. Continue current treatment with the changes noted in the dictated addendum note Assessment: Vital Signs/I&O: Vital Signs Date Time Temp Pulse Resp B/P (MAP) Pulse Ox O2 Delivery O2 Flow Rate FiO2 10/23/20 16:28 97.8 75 16 116/75 (89) 99 10/22/20 05:50 Room Air I & O 10/22/20 10/22/20 10/23/20 15:00 23:00 07:00 Intake Total 720 ml 480 ml Balance 720 ml 480 ml Labs: Laboratory Tests Test 10/23/20 06:35 White Blood Count 6.9 x10^3/uL (4.0-11.0) Red Blood Count 4.10 x10^6/uL (4.30-5.70) L Hemoglobin 12.1 g/dL (13.0-17.5) L Hematocrit 36.4 % (39.0-53.0) L Mean Corpuscular Volume 89 fL (79-100) Mean Corpuscular Hemoglobin 30 pg (25-35) Mean Corpuscular Hemoglobin Concent 33 g/dL (31-37) Red Cell Distribution Width 14.4 % (11.5-14.5) Platelet Count 209 x10^3/uL (140-400) Neutrophils (%) (Auto) 64 % (31-73) Lymphocytes (%) (Auto) 22 % (24-48) L Monocytes (%) (Auto) 10 % (0-9) H Eosinophils (%) (Auto) 3 % (0-3) Basophils (%) (Auto) 1 % (0-3) Neutrophils # (Auto) 4.4 x10^3uL (1.8-7.7) Lymphocytes # (Auto) 1.5 x10^3/uL (1.0-4.8) Monocytes # (Auto) 0.7 x10^3/uL (0.0-1.1) Eosinophils # (Auto) 0.2 x10^3/uL (0.0-0.7) Basophils # (Auto) 0.1 x10^3/uL (0.0-0.2) Sodium Level 145 mmol/L (136-145) Potassium Level 3.6 mmol/L (3.5-5.1) Chloride Level 107 mmol/L (98-107) Carbon Dioxide Level 31 mmol/L (21-32) Anion Gap 7 (6-14) Blood Urea Nitrogen 40 mg/dL (8-26) H Creatinine 1.6 mg/dL (0.7-1.3) H Estimated GFR (Cockcroft-Gault) 42.6 BUN/Creatinine Ratio 25 (6-20) H Glucose Level 91 mg/dL (70-99) Calcium Level 8.1 mg/dL (8.5-10.1) L Total Bilirubin 0.6 mg/dL (0.2-1.0) Aspartate Amino Transferase (AST) 21 U/L (15-37) Alanine Aminotransferase (ALT) 28 U/L (16-63) Alkaline Phosphatase 57 U/L (46-116) Total Protein 6.2 g/dL (6.4-8.2) L Albumin 3.3 g/dL (3.4-5.0) L Albumin/Globulin Ratio 1.1 (1.0-1.7) Current Medications: Meds: Laboratory Tests Test 10/23/20 06:35 White Blood Count 6.9 x10^3/uL Red Blood Count 4.10 x10^6/uL Hemoglobin 12.1 g/dL Hematocrit 36.4 % Mean Corpuscular Volume 89 fL Mean Corpuscular Hemoglobin 30 pg Mean Corpuscular Hemoglobin Concent 33 g/dL Red Cell Distribution Width 14.4 % Platelet Count 209 x10^3/uL Neutrophils (%) (Auto) 64 % Lymphocytes (%) (Auto) 22 % Monocytes (%) (Auto) 10 % Eosinophils (%) (Auto) 3 % Basophils (%) (Auto) 1 % Neutrophils # (Auto) 4.4 x10^3uL Lymphocytes # (Auto) 1.5 x10^3/uL Monocytes # (Auto) 0.7 x10^3/uL Eosinophils # (Auto) 0.2 x10^3/uL Basophils # (Auto) 0.1 x10^3/uL Sodium Level 145 mmol/L Potassium Level 3.6 mmol/L Chloride Level 107 mmol/L Carbon Dioxide Level 31 mmol/L Anion Gap 7 Blood Urea Nitrogen 40 mg/dL Creatinine 1.6 mg/dL Estimated GFR (Cockcroft-Gault) 42.6 BUN/Creatinine Ratio 25 Glucose Level 91 mg/dL Calcium Level 8.1 mg/dL Total Bilirubin 0.6 mg/dL Aspartate Amino Transf (AST/SGOT) 21 U/L Alanine Aminotransferase (ALT/SGPT) 28 U/L Alkaline Phosphatase 57 U/L Total Protein 6.2 g/dL Albumin 3.3 g/dL Albumin/Globulin Ratio 1.1 Current Medications Medications (Trade) Dose Ordered Sig/Ashvin Route PRN Reason Start Time Stop Time Status Last Admin Dose Admin Acetaminophen (Tylenol) 650 mg PRN Q6HRS PRN PO MILD PAIN / TEMP > 100.3'F 08/24/20 18:15 10/19/20 14:44 Multi-Ingredient Ointment (Analgesic [place]) 1 césar PRN QID PRN TP MUSCLE PAIN 08/24/20 18:15 Al Hydroxide/Mg Hydroxide (Mylanta Plus Xs) 15 ml PRN AFTMEALHC PRN PO DYSPEPSIA 08/24/20 18:15 Magnesium Hydroxide (Milk Of Magnesia) 2,400 mg PRN QHS PRN PO CONSTIPATION 08/24/20 18:15 Aspirin (Aspirin Chewable) 81 mg DAILY PO 08/25/20 09:00 10/23/20 12:07 Cetirizine HCl (ZyrTEC) 10 mg DAILY08 PO 08/25/20 08:00 10/23/20 12:06 Donepezil HCl (Aricept) 23 mg QHS PO 08/24/20 21:00 08/28/20 15:38 DC 08/27/20 20:34 Fluoxetine HCl (PROzac) 20 mg DAILY PO 08/25/20 09:00 10/23/20 12:07 Lorazepam (Ativan) 1 mg PRN Q4HRS PRN PO ANXIETY / AGITATION 08/24/20 18:45 09/04/20 16:12 DC 09/04/20 01:29 Atorvastatin Calcium (Lipitor) 40 mg QHS PO 08/24/20 21:00 10/23/20 20:30 Pantoprazole Sodium (Protonix) 40 mg DAILY08 PO 08/25/20 08:00 10/23/20 12:07 Multivitamins/ Calcium (Thera-M Plus) 1 tab DAILY PO 08/25/20 09:00 10/23/20 12:06 Mupirocin (Bactroban) 1 césar BID92 TP 08/25/20 09:00 09/03/20 12:35 DC 09/01/20 14:00 Fish Oil (Fish Oil) 1,000 mg DAILY PO 08/25/20 09:00 10/23/20 12:07 Olanzapine (ZyPREXA ZYDIS) 2.5 mg PRN Q2HR PRN PO PSYCHOSIS 08/24/20 19:45 09/21/20 19:44 Sertraline HCl (Zoloft) 25 mg DAILY PO 08/26/20 09:00 08/28/20 21:00 DC 08/28/20 08:37 Sertraline HCl (Zoloft) 50 mg DAILY PO 08/29/20 09:00 09/06/20 18:40 DC 09/04/20 08:58 Tamsulosin HCl (Flomax) 0.4 mg QHS PO 08/28/20 21:00 10/23/20 20:29 Mupirocin (Bactroban) 1 césar PRN BID PRN TP RASH 09/03/20 12:45 Diphenhydramine HCl (Benadryl) 50 mg 1X ONCE PO 09/04/20 21:00 09/04/20 21:01 DC 09/04/20 21:21 Olanzapine (ZyPREXA ZYDIS) 5 mg 1X ONCE PO 09/27/20 18:30 09/27/20 18:31 DC 09/27/20 18:30 Divalproex Sodium (Depakote Sprinkles) 125 mg 0900,1700 PO 09/28/20 17:00 10/12/20 17:08 DC 10/12/20 08:18 Furosemide (Lasix) 80 mg 1X ONCE PO 09/30/20 15:30 09/30/20 15:31 DC 09/30/20 16:00 Furosemide (Lasix) 80 mg DAILY PO 10/01/20 09:00 10/23/20 12:07 Potassium Chloride (Klor-Con) 20 meq DAILYWBKFT PO 10/01/20 08:00 10/23/20 12:07 Trazodone HCl (Desyrel) 50 mg PRN QHS PRN PO INSOMNIA 10/08/20 16:15 10/09/20 20:15 Divalproex Sodium (Depakote Sprinkles) 125 mg 0900,1300,1700,2100 PO 10/12/20 17:50 10/21/20 17:01 DC 10/21/20 12:26 Divalproex Sodium (Depakote Sprinkles) 125 mg 1300,1700 PO 10/21/20 17:00 10/23/20 17:38 Divalproex Sodium (Depakote Sprinkles) 250 mg 0900,2100 PO 10/21/20 21:00 10/23/20 20:29 I have reviewed the current psychotropics carefully including drug interactions. Risk benefit ratio favors no change other than as noted in my dictated progress note. Diagnosis: Problems: (1) Impulse control disorder, unspecified (2) Anxiety disorder, unspecified (3) Dementia, vascular, with depression (4) Dementia, vascular, with delusions (5) Dementia in Alzheimer's disease with depression (6) Dementia in Alzheimer's disease with delusions (7) Dementia of the Alzheimer's type with early onset with behavioral di sturbance (8) Major neurocognitive disorder VERENA AGUSTIN MD Oct 23, 2020 21:53
[2020-10-24 05:21] VITALS: BP 98/58
[2020-10-24] MEDS: OMEGA-3 FATTY ACIDS/FISH OIL 1,000 MG CAPSULE. PO SCH (08:02)
[2020-10-24] MEDS: DIVALPROEX 125 MG CAP.SPRINK PO SCH ×4 (08:02→20:22)
[2020-10-24] MEDS: CETIRIZINE HCL 10 MG TABLET PO SCH (08:03)
[2020-10-24] MEDS: MULTIVITAMIN with MINERAL TABLET. PO SCH (08:03)
[2020-10-24] MEDS: ASPIRIN CHEWABLE 81 MG TABLET. PO SCH (08:03)
[2020-10-24] MEDS: POTASSIUM CHLORIDE 20 MEQ TABLET.ER. PO SCH (08:04)
[2020-10-24] MEDS: PANTOPRAZOLE 40 MG TABLET. PO SCH (08:04)
[2020-10-24] MEDS: FUROSEMIDE 40 MG TABLET PO SCH (08:04)
--- NOTE | 2020-10-24 08:36 | PDOC ---
Exam Note: Fercho Note: This note is a late entry for 10/23/2020 covers elements not covered in my initial note. Subjective: The patient was seen individually in the evening of 10/23/2020 with Ivan ABREU, discussed and reviewed the chart. He slept 7-1/4 hours previous night. He was resistive, getting his vital signs taken in the morning and he was irritable previous evening. He remains withdrawn to his room, spending much time in bed. I met with him individually. He has not been otherwise aggressive. He remains confused, wanders the hallways. Mental Status Exam: The patient is awake, alert, oriented to himself. Insight and judgment, recent and remote memory, attention and concentration, fund of knowledge is poor consistent with his diagnoses. Laboratory Data: Reviewed. Impression: Major neurocognitive disorder Alzheimer vascular with delusion, depression, behavioral disturbance. Anxiety disorder unspecified. Impulse control disorder unspecified. Plan: Continue current psychotropics. We have increased the patients Depakote. Repeat labs level is awaited for valproic acid level on 10/25 and we will make further adjustments as clinically indicated. Assessment: Vital Signs/I&O: Vital Signs Date Time Temp Pulse Resp B/P (MAP) Pulse Ox O2 Delivery O2 Flow Rate FiO2 10/24/20 05:21 97.6 77 20 98/58 (71) 97 10/22/20 05:50 Room Air I & O 10/23/20 10/23/20 10/24/20 15:00 23:00 07:00 Intake Total 360 ml 700 ml Output Total 1 ml 1 ml Balance 360 ml 699 ml -1 ml Current Medications: Meds: Current Medications Medications (Trade) Dose Ordered Sig/Ashvin Route PRN Reason Start Time Stop Time Status Last Admin Dose Admin Acetaminophen (Tylenol) 650 mg PRN Q6HRS PRN PO MILD PAIN / TEMP > 100.3'F 08/24/20 18:15 10/19/20 14:44 Multi-Ingredient Ointment (Analgesic [place]) 1 césar PRN QID PRN TP MUSCLE PAIN 08/24/20 18:15 Al Hydroxide/Mg Hydroxide (Mylanta Plus Xs) 15 ml PRN AFTMEALHC PRN PO DYSPEPSIA 08/24/20 18:15 Magnesium Hydroxide (Milk Of Magnesia) 2,400 mg PRN QHS PRN PO CONSTIPATION 08/24/20 18:15 Aspirin (Aspirin Chewable) 81 mg DAILY PO 08/25/20 09:00 10/24/20 08:03 Cetirizine HCl (ZyrTEC) 10 mg DAILY08 PO 08/25/20 08:00 10/24/20 08:03 Donepezil HCl (Aricept) 23 mg QHS PO 08/24/20 21:00 08/28/20 15:38 DC 08/27/20 20:34 Fluoxetine HCl (PROzac) 20 mg DAILY PO 08/25/20 09:00 10/24/20 08:03 Lorazepam (Ativan) 1 mg PRN Q4HRS PRN PO ANXIETY / AGITATION 08/24/20 18:45 09/04/20 16:12 DC 09/04/20 01:29 Atorvastatin Calcium (Lipitor) 40 mg QHS PO 08/24/20 21:00 10/23/20 20:30 Pantoprazole Sodium (Protonix) 40 mg DAILY08 PO 08/25/20 08:00 10/24/20 08:04 Multivitamins/ Calcium (Thera-M Plus) 1 tab DAILY PO 08/25/20 09:00 10/24/20 08:03 Mupirocin (Bactroban) 1 césar BID92 TP 08/25/20 09:00 09/03/20 12:35 DC 09/01/20 14:00 Fish Oil (Fish Oil) 1,000 mg DAILY PO 08/25/20 09:00 10/24/20 08:02 Olanzapine (ZyPREXA ZYDIS) 2.5 mg PRN Q2HR PRN PO PSYCHOSIS 08/24/20 19:45 09/21/20 19:44 Sertraline HCl (Zoloft) 25 mg DAILY PO 08/26/20 09:00 08/28/20 21:00 DC 08/28/20 08:37 Sertraline HCl (Zoloft) 50 mg DAILY PO 08/29/20 09:00 09/06/20 18:40 DC 09/04/20 08:58 Tamsulosin HCl (Flomax) 0.4 mg QHS PO 08/28/20 21:00 10/23/20 20:29 Mupirocin (Bactroban) 1 césar PRN BID PRN TP RASH 09/03/20 12:45 Diphenhydramine HCl (Benadryl) 50 mg 1X ONCE PO 09/04/20 21:00 09/04/20 21:01 DC 09/04/20 21:21 Olanzapine (ZyPREXA ZYDIS) 5 mg 1X ONCE PO 09/27/20 18:30 09/27/20 18:31 DC 09/27/20 18:30 Divalproex Sodium (Depakote Sprinkles) 125 mg 0900,1700 PO 09/28/20 17:00 10/12/20 17:08 DC 10/12/20 08:18 Furosemide (Lasix) 80 mg 1X ONCE PO 09/30/20 15:30 09/30/20 15:31 DC 09/30/20 16:00 Furosemide (Lasix) 80 mg DAILY PO 10/01/20 09:00 10/24/20 08:04 Potassium Chloride (Klor-Con) 20 meq DAILYWBKFT PO 10/01/20 08:00 10/24/20 08:04 Trazodone HCl (Desyrel) 50 mg PRN QHS PRN PO INSOMNIA 10/08/20 16:15 10/09/20 20:15 Divalproex Sodium (Depakote Sprinkles) 125 mg 0900,1300,1700,2100 PO 10/12/20 17:50 10/21/20 17:01 DC 10/21/20 12:26 Divalproex Sodium (Depakote Sprinkles) 125 mg 1300,1700 PO 10/21/20 17:00 10/23/20 17:38 Divalproex Sodium (Depakote Sprinkles) 250 mg 0900,2100 PO 10/21/20 21:00 10/24/20 08:02 I have reviewed the current psychotropics carefully including drug interactions. Risk benefit ratio favors no change other than as noted in my dictated progress note. Diagnosis: Problems: (1) Impulse control disorder, unspecified (2) Anxiety disorder, unspecified (3) Dementia, vascular, with depression (4) Dementia, vascular, with delusions (5) Dementia in Alzheimer's disease with depression (6) Dementia in Alzheimer's disease with delusions (7) Dementia of the Alzheimer's type with early onset with behavioral disturbance (8) Major neurocognitive disorder VERENA AGUSTIN MD Oct 24, 2020 08:36
[2020-10-24 16:05] VITALS: BP 114/65
[2020-10-24] MEDS: ATORVASTATIN CALCIUM 20 MG TABLET PO SCH (20:22)
[2020-10-24] MEDS: TAMSULOSIN 0.4 MG CAP.ER.24H. PO SCH (20:22)
--- NOTE | 2020-10-24 21:53 | PDOC ---
Exam Note: Fercho Note: Please also refer to the separate dictated note~for this date of service dictated separately.~Patient seen individually. Discussed the patient with Nursing staff reviewed the chart.~Reviewed interim history and current functioning. Reviewed vital signs,~Labs/ Radiology~and current medications noted below. Continue current treatment with the changes noted in the dictated addendum note Assessment: Vital Signs/I&O: Vital Signs Date Time Temp Pulse Resp B/P (MAP) Pulse Ox O2 Delivery O2 Flow Rate FiO2 10/24/20 16:05 98.1 89 18 114/65 (81) 96 10/22/20 05:50 Room Air I & O 10/23/20 10/23/20 10/24/20 15:00 23:00 07:00 Intake Total 360 ml 700 ml Output Total 1 ml 1 ml Balance 360 ml 699 ml -1 ml Current Medications: Meds: Current Medications Medications (Trade) Dose Ordered Sig/Ashvin Route PRN Reason Start Time Stop Time Status Last Admin Dose Admin Acetaminophen (Tylenol) 650 mg PRN Q6HRS PRN PO MILD PAIN / TEMP > 100.3'F 08/24/20 18:15 10/19/20 14:44 Multi-Ingredient Ointment (Analgesic [place]) 1 césar PRN QID PRN TP MUSCLE PAIN 08/24/20 18:15 Al Hydroxide/Mg Hydroxide (Mylanta Plus Xs) 15 ml PRN AFTMEALHC PRN PO DYSPEPSIA 08/24/20 18:15 Magnesium Hydroxide (Milk Of Magnesia) 2,400 mg PRN QHS PRN PO CONSTIPATION 08/24/20 18:15 Aspirin (Aspirin Chewable) 81 mg DAILY PO 08/25/20 09:00 10/24/20 08:03 Cetirizine HCl (ZyrTEC) 10 mg DAILY08 PO 08/25/20 08:00 10/24/20 08:03 Donepezil HCl (Aricept) 23 mg QHS PO 08/24/20 21:00 08/28/20 15:38 DC 08/27/20 20:34 Fluoxetine HCl (PROzac) 20 mg DAILY PO 08/25/20 09:00 10/24/20 08:03 Lorazepam (Ativan) 1 mg PRN Q4HRS PRN PO ANXIETY / AGITATION 08/24/20 18:45 09/04/20 16:12 DC 09/04/20 01:29 Atorvastatin Calcium (Lipitor) 40 mg QHS PO 08/24/20 21:00 10/24/20 20:22 Pantoprazole Sodium (Protonix) 40 mg DAILY08 PO 08/25/20 08:00 10/24/20 08:04 Multivitamins/ Calcium (Thera-M Plus) 1 tab DAILY PO 08/25/20 09:00 10/24/20 08:03 Mupirocin (Bactroban) 1 césar BID92 TP 08/25/20 09:00 09/03/20 12:35 DC 09/01/20 14:00 Fish Oil (Fish Oil) 1,000 mg DAILY PO 08/25/20 09:00 10/24/20 08:02 Olanzapine (ZyPREXA ZYDIS) 2.5 mg PRN Q2HR PRN PO PSYCHOSIS 08/24/20 19:45 09/21/20 19:44 Sertraline HCl (Zoloft) 25 mg DAILY PO 08/26/20 09:00 08/28/20 21:00 DC 08/28/20 08:37 Sertraline HCl (Zoloft) 50 mg DAILY PO 08/29/20 09:00 09/06/20 18:40 DC 09/04/20 08:58 Tamsulosin HCl (Flomax) 0.4 mg QHS PO 08/28/20 21:00 10/24/20 20:22 Mupirocin (Bactroban) 1 césar PRN BID PRN TP RASH 09/03/20 12:45 Diphenhydramine HCl (Benadryl) 50 mg 1X ONCE PO 09/04/20 21:00 09/04/20 21:01 DC 09/04/20 21:21 Olanzapine (ZyPREXA ZYDIS) 5 mg 1X ONCE PO 09/27/20 18:30 09/27/20 18:31 DC 09/27/20 18:30 Divalproex Sodium (Depakote Sprinkles) 125 mg 0900,1700 PO 09/28/20 17:00 10/12/20 17:08 DC 10/12/20 08:18 Furosemide (Lasix) 80 mg 1X ONCE PO 09/30/20 15:30 09/30/20 15:31 DC 09/30/20 16:00 Furosemide (Lasix) 80 mg DAILY PO 10/01/20 09:00 10/24/20 08:04 Potassium Chloride (Klor-Con) 20 meq DAILYWBKFT PO 10/01/20 08:00 10/24/20 08:04 Trazodone HCl (Desyrel) 50 mg PRN QHS PRN PO INSOMNIA 10/08/20 16:15 10/09/20 20:15 Divalproex Sodium (Depakote Sprinkles) 125 mg 0900,1300,1700,2100 PO 10/12/20 17:50 10/21/20 17:01 DC 10/21/20 12:26 Divalproex Sodium (Depakote Sprinkles) 125 mg 1300,1700 PO 10/21/20 17:00 10/24/20 16:59 Divalproex Sodium (Depakote Sprinkles) 250 mg 0900,2100 PO 10/21/20 21:00 10/24/20 20:22 I have reviewed the current psychotropics carefully including drug interactions. Risk benefit ratio favors no change other than as noted in my dictated progress note. Diagnosis: Problems: (1) Impulse control disorder, unspecified (2) Anxiety disorder, unspecified (3) Dementia, vascular, with depression (4) Dementia, vascular, with delusions (5) Dementia in Alzheimer's disease with depression (6) Dementia in Alzheimer's disease with delusions (7) Dementia of the Alzheimer's type with early onset with behavioral disturbance (8) Major neurocognitive disorder VERENA AGUSTIN MD Oct 24, 2020 21:53
[2020-10-25 05:46] VITALS: BP 123/69
--- NOTE | 2020-10-25 06:17 | PDOC ---
Exam Note: Fercho Note: This note is a late entry for 10/24/2020 covers elements not covered in my initial note. Subjective: The patient was seen individually in the evening of 10/24/2020 with Ivan ABREU, discussed and reviewed the chart. He slept 3-1/4 hours previous night. The patient did well till about 2.30 p.m. then was more agitated, aggressive, attempting to bite aids but not in an aggressive manner, somewhat joking at times. Mental Status Exam: The patient is awake, alert, oriented to himself. Insight and judgment, recent and remote memory, attention and concentration, fund of knowledge is poor consistent with his diagnoses. Laboratory Data: Reviewed. Impression: Major neurocognitive disorder Alzheimer vascular with delusion, depression, behavioral disturbance. Anxiety disorder unspecified. Impulse control disorder unspecified. Plan: Continue current psychotropics. We will check patients valproic acid level tomorrow morning 10/25 and adjust Depakote to reach therapeutic level. As I addressed this with the patient he was quite oblivious of this and smiling. Assessment: Vital Signs/I&O: Vital Signs Date Time Temp Pulse Resp B/P (MAP) Pulse Ox O2 Delivery O2 Flow Rate FiO2 10/25/20 05:46 97.6 68 18 123/69 (87) 96 Room Air I & O 10/24/20 10/24/20 10/25/20 15:00 23:00 07:00 Intake Total 600 ml 480 ml Balance 600 ml 480 ml Current Medications: Meds: Current Medications Medications (Trade) Dose Ordered Sig/Ashvin Route PRN Reason Start Time Stop Time Status Last Admin Dose Admin Acetaminophen (Tylenol) 650 mg PRN Q6HRS PRN PO MILD PAIN / TEMP > 100.3'F 08/24/20 18:15 10/19/20 14:44 Multi-Ingredient Ointment (Analgesic [place]) 1 césar PRN QID PRN TP MUSCLE PAIN 08/24/20 18:15 Al Hydroxide/Mg Hydroxide (Mylanta Plus Xs) 15 ml PRN AFTMEALHC PRN PO DYSPEPSIA 08/24/20 18:15 Magnesium Hydroxide (Milk Of Magnesia) 2,400 mg PRN QHS PRN PO CONSTIPATION 08/24/20 18:15 Aspirin (Aspirin Chewable) 81 mg DAILY PO 08/25/20 09:00 10/24/20 08:03 Cetirizine HCl (ZyrTEC) 10 mg DAILY08 PO 08/25/20 08:00 10/24/20 08:03 Donepezil HCl (Aricept) 23 mg QHS PO 08/24/20 21:00 08/28/20 15:38 DC 08/27/20 20:34 Fluoxetine HCl (PROzac) 20 mg DAILY PO 08/25/20 09:00 10/24/20 08:03 Lorazepam (Ativan) 1 mg PRN Q4HRS PRN PO ANXIETY / AGITATION 08/24/20 18:45 09/04/20 16:12 DC 09/04/20 01:29 Atorvastatin Calcium (Lipitor) 40 mg QHS PO 08/24/20 21:00 10/24/20 20:22 Pantoprazole Sodium (Protonix) 40 mg DAILY08 PO 08/25/20 08:00 10/24/20 08:04 Multivitamins/ Calcium (Thera-M Plus) 1 tab DAILY PO 08/25/20 09:00 10/24/20 08:03 Mupirocin (Bactroban) 1 césar BID92 TP 08/25/20 09:00 09/03/20 12:35 DC 09/01/20 14:00 Fish Oil (Fish Oil) 1,000 mg DAILY PO 08/25/20 09:00 10/24/20 08:02 Olanzapine (ZyPREXA ZYDIS) 2.5 mg PRN Q2HR PRN PO PSYCHOSIS 08/24/20 19:45 09/21/20 19:44 Sertraline HCl (Zoloft) 25 mg DAILY PO 08/26/20 09:00 08/28/20 21:00 DC 08/28/20 08:37 Sertraline HCl (Zoloft) 50 mg DAILY PO 08/29/20 09:00 09/06/20 18:40 DC 09/04/20 08:58 Tamsulosin HCl (Flomax) 0.4 mg QHS PO 08/28/20 21:00 10/24/20 20:22 Mupirocin (Bactroban) 1 césar PRN BID PRN TP RASH 09/03/20 12:45 Diphenhydramine HCl (Benadryl) 50 mg 1X ONCE PO 09/04/20 21:00 09/04/20 21:01 DC 09/04/20 21:21 Olanzapine (ZyPREXA ZYDIS) 5 mg 1X ONCE PO 09/27/20 18:30 09/27/20 18:31 DC 09/27/20 18:30 Divalproex Sodium (Depakote Sprinkles) 125 mg 0900,1700 PO 09/28/20 17:00 10/12/20 17:08 DC 10/12/20 08:18 Furosemide (Lasix) 80 mg 1X ONCE PO 09/30/20 15:30 09/30/20 15:31 DC 09/30/20 16:00 Furosemide (Lasix) 80 mg DAILY PO 10/01/20 09:00 10/24/20 08:04 Potassium Chloride (Klor-Con) 20 meq DAILYWBKFT PO 10/01/20 08:00 10/24/20 08:04 Trazodone HCl (Desyrel) 50 mg PRN QHS PRN PO INSOMNIA 10/08/20 16:15 10/09/20 20:15 Divalproex Sodium (Depakote Sprinkles) 125 mg 0900,1300,1700,2100 PO 10/12/20 17:50 10/21/20 17:01 DC 10/21/20 12:26 Divalproex Sodium (Depakote Sprinkles) 125 mg 1300,1700 PO 10/21/20 17:00 10/24/20 16:59 Divalproex Sodium (Depakote Sprinkles) 250 mg 0900,2100 PO 10/21/20 21:00 10/24/20 20:22 I have reviewed the current psychotropics carefully including drug interactions. Risk benefit ratio favors no change other than as noted in my dictated progress note. Diagnosis: Problems: (1) Impulse control disorder, unspecified (2) Anxiety disorder, unspecified (3) Dementia, vascular, with depression (4) Dementia, vascular, with delusions (5) Dementia in Alzheimer's disease with depression (6) Dementia in Alzheimer's disease with delusions (7) Dementia of the Alzheimer's type with early onset with behavioral disturbance (8) Major neurocognitive disorder VERENA AGUSTIN MD Oct 25, 2020 06:17
[2020-10-25 08:07] LABS: ALBUMIN 3.3 g/dL (3.4-5.0); ALBUMIN/GLOBULIN RATIO 1.2 (1.0-1.7); ALK PHOS 58 U/L (46-116); ALT (SGPT) 31 U/L (16-63); ANION GAP 9 (6-14); AST (SGOT) 25 U/L (15-37); BASO # 0.1 x10^3/uL (0.0-0.2); BASO % 1 % (0-3); BLOOD UREA NITROGEN 36 mg/dL (8-26); BUN/CREATININE RATIO 23 (6-20); CALCIUM 8.1 mg/dL (8.5-10.1); CARBON DIOXIDE 30 mmol/L (21-32); CHLORIDE 105 mmol/L (98-107); CREATININE 1.6 mg/dL (0.7-1.3); EOS # 0.2 x10^3/uL (0.0-0.7); EOS % 2 % (0-3); GFR 42.6; GLUCOSE 87 mg/dL (70-99); HEMATOCRIT 36.4 % (39.0-53.0); HEMOGLOBIN 12.2 g/dL (13.0-17.5); LYMPH # 1.5 x10^3/uL (1.0-4.8); LYMPH % 21 % (24-48); MEAN CORPUSCULAR HEMOGLOBIN 30 pg (25-35); MEAN CORPUSCULAR HGB CONC 34 g/dL (31-37); MEAN CORPUSCULAR VOLUME 89 fL (79-100); MONO # 0.7 x10^3/uL (0.0-1.1); MONO % 10 % (0-9); NEUT # 4.8 x10^3uL (1.8-7.7); NEUT % 67 % (31-73); PLATELET COUNT 212 x10^3/uL (140-400); POTASSIUM 3.7 mmol/L (3.5-5.1); RED BLOOD COUNT 4.12 x10^6/uL (4.30-5.70); RED CELL DISTRIBUTION WIDTH 14.3 % (11.5-14.5); SODIUM 144 mmol/L (136-145); TOTAL BILIRUBIN 0.8 mg/dL (0.2-1.0); TOTAL PROTEIN 6.1 g/dL (6.4-8.2); WHITE BLOOD COUNT 7.2 x10^3/uL (4.0-11.0)
[2020-10-25 08:17] LABS: VAL ACID 48 mcg/mL (50-100)
[2020-10-25] MEDS: ASPIRIN CHEWABLE 81 MG TABLET. PO SCH (09:08)
[2020-10-25] MEDS: PANTOPRAZOLE 40 MG TABLET. PO SCH (09:09)
[2020-10-25] MEDS: FUROSEMIDE 40 MG TABLET PO SCH (09:09)
[2020-10-25] MEDS: DIVALPROEX 125 MG CAP.SPRINK PO SCH ×4 (09:09→20:01)
[2020-10-25] MEDS: POTASSIUM CHLORIDE 20 MEQ TABLET.ER. PO SCH (09:10)
[2020-10-25] MEDS: OMEGA-3 FATTY ACIDS/FISH OIL 1,000 MG CAPSULE. PO SCH (09:10)
[2020-10-25] MEDS: CETIRIZINE HCL 10 MG TABLET PO SCH (09:10)
[2020-10-25] MEDS: MULTIVITAMIN with MINERAL TABLET. PO SCH (09:10)
[2020-10-25 15:46] VITALS: BP 111/78
[2020-10-25] MEDS: TAMSULOSIN 0.4 MG CAP.ER.24H. PO SCH (20:01)
[2020-10-25] MEDS: ATORVASTATIN CALCIUM 20 MG TABLET PO SCH (20:01)
--- NOTE | 2020-10-25 21:55 | PDOC ---
Exam Note: Fercho Note: Please also refer to the separate dictated note~for this date of service dictated separately.~Patient seen individually. Discussed the patient with Nursing staff reviewed the chart.~Reviewed interim history and current functioning. Reviewed vital signs,~Labs/ Radiology~and current medications noted below. Continue current treatment with the changes noted in the dictated addendum note Assessment: Vital Signs/I&O: Vital Signs Date Time Temp Pulse Resp B/P (MAP) Pulse Ox O2 Delivery O2 Flow Rate FiO2 10/25/20 15:46 97.4 78 20 111/78 (89) 96 Room Air I & O 10/24/20 10/24/20 10/25/20 15:00 23:00 07:00 Intake Total 600 ml 480 ml Balance 600 ml 480 ml Labs: Laboratory Tests Test 10/25/20 06:55 White Blood Count 7.2 x10^3/uL (4.0-11.0) Red Blood Count 4.12 x10^6/uL (4.30-5.70) L Hemoglobin 12.2 g/dL (13.0-17.5) L Hematocrit 36.4 % (39.0-53.0) L Mean Corpuscular Volume 89 fL (79-100) Mean Corpuscular Hemoglobin 30 pg (25-35) Mean Corpuscular Hemoglobin Concent 34 g/dL (31-37) Red Cell Distribution Width 14.3 % (11.5-14.5) Platelet Count 212 x10^3/uL (140-400) Neutrophils (%) (Auto) 67 % (31-73) Lymphocytes (%) (Auto) 21 % (24-48) L Monocytes (%) (Auto) 10 % (0-9) H Eosinophils (%) (Auto) 2 % (0-3) Basophils (%) (Auto) 1 % (0-3) Neutrophils # (Auto) 4.8 x10^3uL (1.8-7.7) Lymphocytes # (Auto) 1.5 x10^3/uL (1.0-4.8) Monocytes # (Auto) 0.7 x10^3/uL (0.0-1.1) Eosinophils # (Auto) 0.2 x10^3/uL (0.0-0.7) Basophils # (Auto) 0.1 x10^3/uL (0.0-0.2) Sodium Level 144 mmol/L (136-145) Potassium Level 3.7 mmol/L (3.5-5.1) Chloride Level 105 mmol/L (98-107) Carbon Dioxide Level 30 mmol/L (21-32) Anion Gap 9 (6-14) Blood Urea Nitrogen 36 mg/dL (8-26) H Creatinine 1.6 mg/dL (0.7-1.3) H Estimated GFR (Cockcroft-Gault) 42.6 BUN/Creatinine Ratio 23 (6-20) H Glucose Level 87 mg/dL (70-99) Calcium Level 8.1 mg/dL (8.5-10.1) L Total Bilirubin 0.8 mg/dL (0.2-1.0) Aspartate Amino Transferase (AST) 25 U/L (15-37) Alanine Aminotransferase (ALT) 31 U/L (16-63) Alkaline Phosphatase 58 U/L (46-116) Ammonia 20 mcmol/L (11-34) Total Protein 6.1 g/dL (6.4-8.2) L Albumin 3.3 g/dL (3.4-5.0) L Albumin/Globulin Ratio 1.2 (1.0-1.7) Valproic Acid Level 48 mcg/mL (50-100) L Valproic Acid Last Dose Date 10/24/20 Valproic Acid Last Dose Time 2100 Current Medications: Meds: Current Medications Medications (Trade) Dose Ordered Sig/Ashvin Route PRN Reason Start Time Stop Time Status Last Admin Dose Admin Divalproex Sodium (Depakote Sprinkles) 250 mg QID PO 10/25/20 17:15 10/25/20 20:01 I have reviewed the current psychotropics carefully including drug interactions. Risk benefit ratio favors no change other than as noted in my dictated progress note. Diagnosis: Problems: (1) Impulse control disorder, unspecified (2) Anxiety disorder, unspecified (3) Dementia, vascular, with depression (4) Dementia, vascular, with delusions (5) Dementia in Alzheimer's disease with depression (6) Dementia in Alzheimer's disease with delusions (7) Dementia of the Alzheimer's type with early onset with behavioral disturbance (8) Major neurocognitive disorder VERENA AGUSTIN MD Oct 25, 2020 21:55
[2020-10-26 05:49] VITALS: BP 113/68
[2020-10-26] MEDS: PANTOPRAZOLE 40 MG TABLET. PO SCH (08:07)
[2020-10-26] MEDS: ASPIRIN CHEWABLE 81 MG TABLET. PO SCH (08:07)
[2020-10-26] MEDS: DIVALPROEX 125 MG CAP.SPRINK PO SCH ×4 (08:07→21:02)
[2020-10-26] MEDS: POTASSIUM CHLORIDE 20 MEQ TABLET.ER. PO SCH (08:08)
[2020-10-26] MEDS: FUROSEMIDE 40 MG TABLET PO SCH (08:08)
[2020-10-26] MEDS: MULTIVITAMIN with MINERAL TABLET. PO SCH (08:08)
[2020-10-26] MEDS: CETIRIZINE HCL 10 MG TABLET PO SCH (08:08)
[2020-10-26] MEDS: OMEGA-3 FATTY ACIDS/FISH OIL 1,000 MG CAPSULE. PO SCH (08:08)
--- NOTE | 2020-10-26 08:43 | PDOC ---
Exam Note: Fercho Note: This note is a late entry for 10/25/2020 covers elements not covered in my initial note. Subjective: The patient was seen individually in the evening of 10/25/2020 with Ivan ABREU, discussed and reviewed the chart. He slept 7-1/2 hours previous night. Slept in this morning. He was somewhat agitated in the evening. Received Zyprexa p.r.n., did well in the morning. Valproic acid level is 48 today subtherapeutic on Depakote 205 mg twice a day, 125 mg twice a day and we will increase to 250 mg 4 times a day. Check CBC, CMP, valproic acid level in 3 days. Ammonia is unremarkable. Mental Status Exam: The patient is oriented to himself. Insight and judgment, recent and remote memory, attention and concentration, fund of knowledge is poor consistent with his diagnoses. Laboratory Data: Reviewed. Impression: Major neurocognitive disorder Alzheimer vascular with delusion, depression, behavioral disturbance. Anxiety disorder unspecified. Impulse control disorder unspecified. Plan: Continue current psychotropics. Valproic acid level is 48 today subtherapeutic on Depakote 205 mg twice a day, 125 mg twice a day and we will increase to 250 mg 4 times a day. Check CBC, CMP, valproic acid level in 3 days. Assessment: Vital Signs/I&O: Vital Signs Date Time Temp Pulse Resp B/P (MAP) Pulse Ox O2 Delivery O2 Flow Rate FiO2 10/26/20 05:49 97.4 75 16 113/68 (83) 94 Room Air I & O 10/25/20 10/25/20 10/26/20 15:00 23:00 07:00 Intake Total 360 ml 0 ml 120 ml Balance 360 ml 0 ml 120 ml Current Medications: Meds: Current Medications Medications (Trade) Dose Ordered Sig/Ashvin Route PRN Reason Start Time Stop Time Status Last Admin Dose Admin Acetaminophen (Tylenol) 650 mg PRN Q6HRS PRN PO MILD PAIN / TEMP > 100.3'F 08/24/20 18:15 10/19/20 14:44 Multi-Ingredient Ointment (Analgesic [place]) 1 césar PRN QID PRN TP MUSCLE PAIN 08/24/20 18:15 Al Hydroxide/Mg Hydroxide (Mylanta Plus Xs) 15 ml PRN AFTMEALHC PRN PO DYSPEPSIA 08/24/20 18:15 Magnesium Hydroxide (Milk Of Magnesia) 2,400 mg PRN QHS PRN PO CONSTIPATION 08/24/20 18:15 Aspirin (Aspirin Chewable) 81 mg DAILY PO 08/25/20 09:00 10/26/20 08:07 Cetirizine HCl (ZyrTEC) 10 mg DAILY08 PO 08/25/20 08:00 10/26/20 08:08 Donepezil HCl (Aricept) 23 mg QHS PO 08/24/20 21:00 08/28/20 15:38 DC 08/27/20 20:34 Fluoxetine HCl (PROzac) 20 mg DAILY PO 08/25/20 09:00 10/26/20 08:08 Lorazepam (Ativan) 1 mg PRN Q4HRS PRN PO ANXIETY / AGITATION 08/24/20 18:45 09/04/20 16:12 DC 09/04/20 01:29 Atorvastatin Calcium (Lipitor) 40 mg QHS PO 08/24/20 21:00 10/25/20 20:01 Pantoprazole Sodium (Protonix) 40 mg DAILY08 PO 08/25/20 08:00 10/26/20 08:07 Multivitamins/ Calcium (Thera-M Plus) 1 tab DAILY PO 08/25/20 09:00 10/26/20 08:08 Mupirocin (Bactroban) 1 césar BID92 TP 08/25/20 09:00 09/03/20 12:35 DC 09/01/20 14:00 Fish Oil (Fish Oil) 1,000 mg DAILY PO 08/25/20 09:00 10/26/20 08:08 Olanzapine (ZyPREXA ZYDIS) 2.5 mg PRN Q2HR PRN PO PSYCHOSIS 08/24/20 19:45 10/25/20 15:29 Sertraline HCl (Zoloft) 25 mg DAILY PO 08/26/20 09:00 08/28/20 21:00 DC 08/28/20 08:37 Sertraline HCl (Zoloft) 50 mg DAILY PO 08/29/20 09:00 09/06/20 18:40 DC 09/04/20 08:58 Tamsulosin HCl (Flomax) 0.4 mg QHS PO 08/28/20 21:00 10/25/20 20:01 Mupirocin (Bactroban) 1 césar PRN BID PRN TP RASH 09/03/20 12:45 Diphenhydramine HCl (Benadryl) 50 mg 1X ONCE PO 09/04/20 21:00 09/04/20 21:01 DC 09/04/20 21:21 Olanzapine (ZyPREXA ZYDIS) 5 mg 1X ONCE PO 09/27/20 18:30 09/27/20 18:31 DC 09/27/20 18:30 Divalproex Sodium (Depakote Sprinkles) 125 mg 0900,1700 PO 09/28/20 17:00 10/12/20 17:08 DC 10/12/20 08:18 Furosemide (Lasix) 80 mg 1X ONCE PO 09/30/20 15:30 09/30/20 15:31 DC 09/30/20 16:00 Furosemide (Lasix) 80 mg DAILY PO 10/01/20 09:00 10/26/20 08:08 Potassium Chloride (Klor-Con) 20 meq DAILYWBKFT PO 10/01/20 08:00 10/26/20 08:08 Trazodone HCl (Desyrel) 50 mg PRN QHS PRN PO INSOMNIA 10/08/20 16:15 10/09/20 20:15 Divalproex Sodium (Depakote Sprinkles) 125 mg 0900,1300,1700,2100 PO 10/12/20 17:50 10/21/20 17:01 DC 10/21/20 12:26 Divalproex Sodium (Depakote Sprinkles) 125 mg 1300,1700 PO 10/21/20 17:00 10/25/20 17:17 DC 10/25/20 15:29 Divalproex Sodium (Depakote Sprinkles) 250 mg 0900,2100 PO 10/21/20 21:00 10/25/20 17:17 DC 10/25/20 09:09 Divalproex Sodium (Depakote Sprinkles) 250 mg QID PO 10/25/20 17:15 10/26/20 08:07 Current Medications Medications (Trade) Dose Ordered Sig/Ashvin Route PRN Reason Start Time Stop Time Status Last Admin Dose Admin Divalproex Sodium (Depakote Sprinkles) 250 mg QID PO 10/25/20 17:15 10/26/20 08:07 I have reviewed the current psychotropics carefully including drug interactions. Risk benefit ratio favors no change other than as noted in my dictated progress note. Diagnosis: Problems: (1) Impulse control disorder, unspecified (2) Anxiety disorder, unspecified (3) Dementia, vascular, with depression (4) Dementia, vascular, with delusions (5) Dementia in Alzheimer's disease with depression (6) Dementia in Alzheimer's disease with delusions (7) Dementia of the Alzheimer's type with early onset with behavioral disturbance (8) Major neurocognitive disorder VERENA AGUSTIN MD Oct 26, 2020 08:42
[2020-10-26 16:12] VITALS: BP 105/73
[2020-10-26] MEDS: TAMSULOSIN 0.4 MG CAP.ER.24H. PO SCH (21:02)
[2020-10-26] MEDS: ATORVASTATIN CALCIUM 20 MG TABLET PO SCH (21:02)
--- NOTE | 2020-10-26 21:38 | PDOC ---
Exam Note: Fercho Note: Please also refer to the separate dictated note~for this date of service dictated separately.~Patient seen individually. Discussed the patient with Nursing staff reviewed the chart.~Reviewed interim history and current functioning. Reviewed vital signs,~Labs/ Radiology~and current medications noted below. Continue current treatment with the changes noted in the dictated addendum note Assessment: Vital Signs/I&O: Vital Signs Date Time Temp Pulse Resp B/P (MAP) Pulse Ox O2 Delivery O2 Flow Rate FiO2 10/26/20 16:12 97.4 83 16 105/73 (84) 94 10/26/20 05:49 Room Air I & O 10/25/20 10/25/20 10/26/20 15:00 23:00 07:00 Intake Total 360 ml 0 ml 120 ml Balance 360 ml 0 ml 120 ml Current Medications: Meds: Current Medications Medications (Trade) Dose Ordered Sig/Ashvin Route PRN Reason Start Time Stop Time Status Last Admin Dose Admin Acetaminophen (Tylenol) 650 mg PRN Q6HRS PRN PO MILD PAIN / TEMP > 100.3'F 08/24/20 18:15 10/19/20 14:44 Multi-Ingredient Ointment (Analgesic [place]) 1 césar PRN QID PRN TP MUSCLE PAIN 08/24/20 18:15 Al Hydroxide/Mg Hydroxide (Mylanta Plus Xs) 15 ml PRN AFTMEALHC PRN PO DYSPEPSIA 08/24/20 18:15 Magnesium Hydroxide (Milk Of Magnesia) 2,400 mg PRN QHS PRN PO CONSTIPATION 08/24/20 18:15 Aspirin (Aspirin Chewable) 81 mg DAILY PO 08/25/20 09:00 10/26/20 08:07 Cetirizine HCl (ZyrTEC) 10 mg DAILY08 PO 08/25/20 08:00 10/26/20 08:08 Donepezil HCl (Aricept) 23 mg QHS PO 08/24/20 21:00 08/28/20 15:38 DC 08/27/20 20:34 Fluoxetine HCl (PROzac) 20 mg DAILY PO 08/25/20 09:00 10/26/20 08:08 Lorazepam (Ativan) 1 mg PRN Q4HRS PRN PO ANXIETY / AGITATION 08/24/20 18:45 09/04/20 16:12 DC 09/04/20 01:29 Atorvastatin Calcium (Lipitor) 40 mg QHS PO 08/24/20 21:00 10/26/20 21:02 Pantoprazole Sodium (Protonix) 40 mg DAILY08 PO 08/25/20 08:00 10/26/20 08:07 Multivitamins/ Calcium (Thera-M Plus) 1 tab DAILY PO 08/25/20 09:00 10/26/20 08:08 Mupirocin (Bactroban) 1 césar BID92 TP 08/25/20 09:00 09/03/20 12:35 DC 09/01/20 14:00 Fish Oil (Fish Oil) 1,000 mg DAILY PO 08/25/20 09:00 10/26/20 08:08 Olanzapine (ZyPREXA ZYDIS) 2.5 mg PRN Q2HR PRN PO PSYCHOSIS 08/24/20 19:45 10/25/20 15:29 Sertraline HCl (Zoloft) 25 mg DAILY PO 08/26/20 09:00 08/28/20 21:00 DC 08/28/20 08:37 Sertraline HCl (Zoloft) 50 mg DAILY PO 08/29/20 09:00 09/06/20 18:40 DC 09/04/20 08:58 Tamsulosin HCl (Flomax) 0.4 mg QHS PO 08/28/20 21:00 10/26/20 21:02 Mupirocin (Bactroban) 1 césar PRN BID PRN TP RASH 09/03/20 12:45 Diphenhydramine HCl (Benadryl) 50 mg 1X ONCE PO 09/04/20 21:00 09/04/20 21:01 DC 09/04/20 21:21 Olanzapine (ZyPREXA ZYDIS) 5 mg 1X ONCE PO 09/27/20 18:30 09/27/20 18:31 DC 09/27/20 18:30 Divalproex Sodium (Depakote Sprinkles) 125 mg 0900,1700 PO 09/28/20 17:00 10/12/20 17:08 DC 10/12/20 08:18 Furosemide (Lasix) 80 mg 1X ONCE PO 09/30/20 15:30 09/30/20 15:31 DC 09/30/20 16:00 Furosemide (Lasix) 80 mg DAILY PO 10/01/20 09:00 10/26/20 08:08 Potassium Chloride (Klor-Con) 20 meq DAILYWBKFT PO 10/01/20 08:00 10/26/20 08:08 Trazodone HCl (Desyrel) 50 mg PRN QHS PRN PO INSOMNIA 10/08/20 16:15 10/09/20 20:15 Divalproex Sodium (Depakote Sprinkles) 125 mg 0900,1300,1700,2100 PO 10/12/20 17:50 10/21/20 17:01 DC 10/21/20 12:26 Divalproex Sodium (Depakote Sprinkles) 125 mg 1300,1700 PO 10/21/20 17:00 10/25/20 17:17 DC 10/25/20 15:29 Divalproex Sodium (Depakote Sprinkles) 250 mg 0900,2100 PO 10/21/20 21:00 10/25/20 17:17 DC 10/25/20 09:09 Divalproex Sodium (Depakote Sprinkles) 250 mg QID PO 10/25/20 17:15 10/26/20 21:02 I have reviewed the current psychotropics carefully including drug interactions. Risk benefit ratio favors no change other than as noted in my dictated progress note. Diagnosis: Problems: (1) Impulse control disorder, unspecified (2) Anxiety disorder, unspecified (3) Dementia, vascular, with depression (4) Dementia, vascular, with delusions (5) Dementia in Alzheimer's disease with depression (6) Dementia in Alzheimer's disease with delusions (7) Dementia of the Alzheimer's type with early onset with behavioral disturbanc e (8) Major neurocognitive disorder VERENA AGUSTIN MD Oct 26, 2020 21:38
[2020-10-27 05:47] VITALS: BP 106/59
--- NOTE | 2020-10-27 06:23 | PDOC ---
Exam Note: Fercho Note: This note is a late entry for 10/26/2020 covers elements not covered in my initial note. Subjective: The patient was seen individually in the evening of 10/26/2020 with Simón ABREU, discussed and reviewed the chart. He slept 9-1/2 hours previous night. The patient has been pleasant, cooperative, smiling, not agitated or aggressive like he was a couple of days back. Repeat labs with increased Depakote are awaited. I met with him individually in the hallway. He remains confused. Mental Status Exam: The patient is oriented to himself. Insight and judgment, recent and remote memory, attention and concentration, fund of knowledge is poor consistent with his diagnoses. Laboratory Data: Reviewed. Impression: Major neurocognitive disorder Alzheimer vascular with delusion, depression, behavioral disturbance. Anxiety disorder unspecified. Impulse control disorder unspecified. Plan: Continue current psychotropics. We have increased Depakote to 250 mg 4 times a day. We will check CBC, CMP, valproic acid level in 3 days. Adjust further to reach therapeutic level. Ammonia at last check was normal 2 days back. Assessment: Vital Signs/I&O: Vital Signs Date Time Temp Pulse Resp B/P (MAP) Pulse Ox O2 Delivery O2 Flow Rate FiO2 10/27/20 05:47 97.2 66 20 106/59 (75) 97 Room Air I & O 10/26/20 10/26/20 10/27/20 15:00 23:00 07:00 Intake Total 720 ml 480 ml Balance 720 ml 480 ml Current Medications: Meds: Current Medications Medications (Trade) Dose Ordered Sig/Ashvin Route PRN Reason Start Time Stop Time Status Last Admin Dose Admin Acetaminophen (Tylenol) 650 mg PRN Q6HRS PRN PO MILD PAIN / TEMP > 100.3'F 08/24/20 18:15 10/19/20 14:44 Multi-Ingredient Ointment (Analgesic [place]) 1 césar PRN QID PRN TP MUSCLE PAIN 08/24/20 18:15 Al Hydroxide/Mg Hydroxide (Mylanta Plus Xs) 15 ml PRN AFTMEALHC PRN PO DYSPEPSIA 08/24/20 18:15 Magnesium Hydroxide (Milk Of Magnesia) 2,400 mg PRN QHS PRN PO CONSTIPATION 08/24/20 18:15 Aspirin (Aspirin Chewable) 81 mg DAILY PO 08/25/20 09:00 10/26/20 08:07 Cetirizine HCl (ZyrTEC) 10 mg DAILY08 PO 08/25/20 08:00 10/26/20 08:08 Donepezil HCl (Aricept) 23 mg QHS PO 08/24/20 21:00 08/28/20 15:38 DC 08/27/20 20:34 Fluoxetine HCl (PROzac) 20 mg DAILY PO 08/25/20 09:00 10/26/20 08:08 Lorazepam (Ativan) 1 mg PRN Q4HRS PRN PO ANXIETY / AGITATION 08/24/20 18:45 09/04/20 16:12 DC 09/04/20 01:29 Atorvastatin Calcium (Lipitor) 40 mg QHS PO 08/24/20 21:00 10/26/20 21:02 Pantoprazole Sodium (Protonix) 40 mg DAILY08 PO 08/25/20 08:00 10/26/20 08:07 Multivitamins/ Calcium (Thera-M Plus) 1 tab DAILY PO 08/25/20 09:00 10/26/20 08:08 Mupirocin (Bactroban) 1 césar BID92 TP 08/25/20 09:00 09/03/20 12:35 DC 09/01/20 14:00 Fish Oil (Fish Oil) 1,000 mg DAILY PO 08/25/20 09:00 10/26/20 08:08 Olanzapine (ZyPREXA ZYDIS) 2.5 mg PRN Q2HR PRN PO PSYCHOSIS 08/24/20 19:45 10/25/20 15:29 Sertraline HCl (Zoloft) 25 mg DAILY PO 08/26/20 09:00 08/28/20 21:00 DC 08/28/20 08:37 Sertraline HCl (Zoloft) 50 mg DAILY PO 08/29/20 09:00 09/06/20 18:40 DC 09/04/20 08:58 Tamsulosin HCl (Flomax) 0.4 mg QHS PO 08/28/20 21:00 10/26/20 21:02 Mupirocin (Bactroban) 1 césar PRN BID PRN TP RASH 09/03/20 12:45 Diphenhydramine HCl (Benadryl) 50 mg 1X ONCE PO 09/04/20 21:00 09/04/20 21:01 DC 09/04/20 21:21 Olanzapine (ZyPREXA ZYDIS) 5 mg 1X ONCE PO 09/27/20 18:30 09/27/20 18:31 DC 09/27/20 18:30 Divalproex Sodium (Depakote Sprinkles) 125 mg 0900,1700 PO 09/28/20 17:00 10/12/20 17:08 DC 10/12/20 08:18 Furosemide (Lasix) 80 mg 1X ONCE PO 09/30/20 15:30 09/30/20 15:31 DC 09/30/20 16:00 Furosemide (Lasix) 80 mg DAILY PO 10/01/20 09:00 10/26/20 08:08 Potassium Chloride (Klor-Con) 20 meq DAILYWBKFT PO 10/01/20 08:00 10/26/20 08:08 Trazodone HCl (Desyrel) 50 mg PRN QHS PRN PO INSOMNIA 10/08/20 16:15 10/09/20 20:15 Divalproex Sodium (Depakote Sprinkles) 125 mg 0900,1300,1700,2100 PO 10/12/20 17:50 10/21/20 17:01 DC 10/21/20 12:26 Divalproex Sodium (Depakote Sprinkles) 125 mg 1300,1700 PO 10/21/20 17:00 10/25/20 17:17 DC 10/25/20 15:29 Divalproex Sodium (Depakote Sprinkles) 250 mg 0900,2100 PO 10/21/20 21:00 10/25/20 17:17 DC 10/25/20 09:09 Divalproex Sodium (Depakote Sprinkles) 250 mg QID PO 10/25/20 17:15 10/26/20 21:02 I have reviewed the current psychotropics carefully including drug interactions. Risk benefit ratio favors no change other than as noted in my dictated progress note. Diagnosis: Problems: (1) Impulse control disorder, unspecified (2) Anxiety disorder, unspecified (3) Dementia, vascular, with depression (4) Dementia, vascular, with delusions (5) Dementia in Alzheimer's disease with depression (6) Dementia in Alzheimer's disease with delusions (7) Dementia of the Alzheimer's type with early onset with behavioral disturbance (8) Major neurocognitive disorder VERENA AGUSTIN MD Oct 27, 2020 06:23
[2020-10-27] MEDS: ASPIRIN CHEWABLE 81 MG TABLET. PO SCH (08:30)
[2020-10-27] MEDS: MULTIVITAMIN with MINERAL TABLET. PO SCH (08:30)
[2020-10-27] MEDS: DIVALPROEX 125 MG CAP.SPRINK PO SCH ×4 (08:31→19:47)
[2020-10-27] MEDS: FUROSEMIDE 40 MG TABLET PO SCH (08:31)
[2020-10-27] MEDS: CETIRIZINE HCL 10 MG TABLET PO SCH (08:32)
[2020-10-27] MEDS: POTASSIUM CHLORIDE 20 MEQ TABLET.ER. PO SCH (08:32)
[2020-10-27] MEDS: OMEGA-3 FATTY ACIDS/FISH OIL 1,000 MG CAPSULE. PO SCH (08:32)
[2020-10-27] MEDS: PANTOPRAZOLE 40 MG TABLET. PO SCH (08:32)
--- NOTE | 2020-10-27 12:30 | TX PLAN ---
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 Change Sleep, Confusion/Disoriented, Poor impulse control, Other Problem in Patient's Words: I cannot care for him at home. Additional Admission Comments: According to the intake, pt was anxious, wandering, restless, insomnia, posturing [facility] staff, struck which resulted in police response Problems Active Problems: wandering restless Inactive Problems: medication compliant Pt Strengths/Limitations Ability for [place]: Poor Cognitive Functioning/Ability: Fair Communication Skills/Ability: Fair Financial Resources: Poor Insight/Judgement: Poor Intellectual Ability: Poor Physical Health: Fair Social Skills: Fair Stability in Family: Fair Stability in School/Work: Poor Verbal Skills: Fair Discharge Criteria Discharge Criteria: No need for close observ., Adequate arrangements @DC, Improved behavior, Improved mood/thought Preliminary Discharge Plan Preliminary DC Plan: Placement Needed Special Precautions Fall Risk: Low Initial D/C Plan Pt is not able to discharge home, will need placement once stable. Identified Discharge Needs: Referral for higher level of care Currently Utilized Resources Currently Utilized Resources/P: Primary Care Physician Identified Problems/Hx/Goals Objectives/Short-Term Goals Short Term Goals: Dec. Aggression, Dec. Outbursts, Medication Stabilization, Monitor Med Effects Short Term Goals in Patient's: N/A Interventions/Frequency Staff Interventions/Frequency&: Psychiatrist to assess pt at least 3x per week for medication management. Social Work to assess pt at least 2x per week to identify barriers to care and finalize discharge planning. Nursing to assess medication effects, behavior modification, and completion of 15 minute checks daily. Encourage participation in group activities (if applicable) or 1:1 engagement based off Activity Dept goals. 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 He received a Bachelors in Sociology. Community Follow-up Primary Care Physician Referrals to higher level of care Community Provider/Family Inpu: Pt has become increasingly aggressive towards his , who is caring for pt. She is not able to care for pt at home any longer. 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 Pt is calm and mostly cooperative. Pt does need to have his medications crushed as he is not able to take them whole (e.g. chewing them or spitting them back out). Pt is wandering the unit more but not exit seeking. Pt has been found urinating in other pt rooms. Pt can typically be redirected; however, yesterday pt did get agitated with the TARIFF COMPILER and grabbed her wrist. Pt was redirected back to his room and was able to calm down shortly afterwards. SW continues to look for placement for pt and is working with pt on the discharge plan. WALESKA HARRELL Oct 27, 2020 12:30
[2020-10-27 16:00] VITALS: BP 110/72
[2020-10-27] MEDS: TAMSULOSIN 0.4 MG CAP.ER.24H. PO SCH (19:48)
[2020-10-27] MEDS: ATORVASTATIN CALCIUM 20 MG TABLET PO SCH (19:49)
--- NOTE | 2020-10-27 22:10 | PDOC ---
Exam Note: Fercho Note: Please also refer to the separate dictated note~for this date of service dictated separately.~Patient seen individually. Discussed the patient with Nursing staff reviewed the chart.~Reviewed interim history and current functioning. Reviewed vital signs,~Labs/ Radiology~and current medications noted below. Continue current treatment with the changes noted in the dictated addendum note Assessment: Vital Signs/I&O: Vital Signs Date Time Temp Pulse Resp B/P (MAP) Pulse Ox O2 Delivery O2 Flow Rate FiO2 10/27/20 16:00 96.5 99 16 110/72 (85) 97 10/27/20 05:47 Room Air I & O 10/26/20 10/26/20 10/27/20 15:00 23:00 07:00 Intake Total 720 ml 480 ml Balance 720 ml 480 ml Current Medications: Meds: Current Medications Medications (Trade) Dose Ordered Sig/Ashvin Route PRN Reason Start Time Stop Time Status Last Admin Dose Admin Acetaminophen (Tylenol) 650 mg PRN Q6HRS PRN PO MILD PAIN / TEMP > 100.3'F 08/24/20 18:15 10/19/20 14:44 Multi-Ingredient Ointment (Analgesic [place]) 1 césar PRN QID PRN TP MUSCLE PAIN 08/24/20 18:15 Al Hydroxide/Mg Hydroxide (Mylanta Plus Xs) 15 ml PRN AFTMEALHC PRN PO DYSPEPSIA 08/24/20 18:15 Magnesium Hydroxide (Milk Of Magnesia) 2,400 mg PRN QHS PRN PO CONSTIPATION 08/24/20 18:15 Aspirin (Aspirin Chewable) 81 mg DAILY PO 08/25/20 09:00 10/27/20 08:30 Cetirizine HCl (ZyrTEC) 10 mg DAILY08 PO 08/25/20 08:00 10/27/20 08:32 Donepezil HCl (Aricept) 23 mg QHS PO 08/24/20 21:00 08/28/20 15:38 DC 08/27/20 20:34 Fluoxetine HCl (PROzac) 20 mg DAILY PO 08/25/20 09:00 10/27/20 08:31 Lorazepam (Ativan) 1 mg PRN Q4HRS PRN PO ANXIETY / AGITATION 08/24/20 18:45 09/04/20 16:12 DC 09/04/20 01:29 Atorvastatin Calcium (Lipitor) 40 mg QHS PO 08/24/20 21:00 10/27/20 19:49 Pantoprazole Sodium (Protonix) 40 mg DAILY08 PO 08/25/20 08:00 10/27/20 08:32 Multivitamins/ Calcium (Thera-M Plus) 1 tab DAILY PO 08/25/20 09:00 10/27/20 08:30 Mupirocin (Bactroban) 1 césar BID92 TP 08/25/20 09:00 09/03/20 12:35 DC 09/01/20 14:00 Fish Oil (Fish Oil) 1,000 mg DAILY PO 08/25/20 09:00 10/27/20 08:32 Olanzapine (ZyPREXA ZYDIS) 2.5 mg PRN Q2HR PRN PO PSYCHOSIS 08/24/20 19:45 10/25/20 15:29 Sertraline HCl (Zoloft) 25 mg DAILY PO 08/26/20 09:00 08/28/20 21:00 DC 08/28/20 08:37 Sertraline HCl (Zoloft) 50 mg DAILY PO 08/29/20 09:00 09/06/20 18:40 DC 09/04/20 08:58 Tamsulosin HCl (Flomax) 0.4 mg QHS PO 08/28/20 21:00 10/27/20 19:48 Mupirocin (Bactroban) 1 césar PRN BID PRN TP RASH 09/03/20 12:45 Diphenhydramine HCl (Benadryl) 50 mg 1X ONCE PO 09/04/20 21:00 09/04/20 21:01 DC 09/04/20 21:21 Olanzapine (ZyPREXA ZYDIS) 5 mg 1X ONCE PO 09/27/20 18:30 09/27/20 18:31 DC 09/27/20 18:30 Divalproex Sodium (Depakote Sprinkles) 125 mg 0900,1700 PO 09/28/20 17:00 10/12/20 17:08 DC 10/12/20 08:18 Furosemide (Lasix) 80 mg 1X ONCE PO 09/30/20 15:30 09/30/20 15:31 DC 09/30/20 16:00 Furosemide (Lasix) 80 mg DAILY PO 10/01/20 09:00 10/27/20 08:31 Potassium Chloride (Klor-Con) 20 meq DAILYWBKFT PO 10/01/20 08:00 10/27/20 08:32 Trazodone HCl (Desyrel) 50 mg PRN QHS PRN PO INSOMNIA 10/08/20 16:15 10/09/20 20:15 Divalproex Sodium (Depakote Sprinkles) 125 mg 0900,1300,1700,2100 PO 10/12/20 17:50 10/21/20 17:01 DC 10/21/20 12:26 Divalproex Sodium (Depakote Sprinkles) 125 mg 1300,1700 PO 10/21/20 17:00 10/25/20 17:17 DC 10/25/20 15:29 Divalproex Sodium (Depakote Sprinkles) 250 mg 0900,2100 PO 10/21/20 21:00 10/25/20 17:17 DC 10/25/20 09:09 Divalproex Sodium (Depakote Sprinkles) 250 mg QID PO 10/25/20 17:15 10/27/20 19:47 I have reviewed the current psychotropics carefully including drug interactions. Risk benefit ratio favors no change other than as noted in my dictated progress note. Diagnosis: Problems: (1) Impulse control disorder, unspecified (2) Anxiety disorder, unspecified (3) Dementia, vascular, with depression (4) Dementia, vascular, with delusions (5) Dementia in Alzheimer's disease with depression (6) Dementia in Alzheimer's disease with delusions (7) Dementia of the Alzheimer's type with early onset with behavioral disturbance (8) Major neurocognitive disorder VERENA AGUSTIN MD Oct 27, 2020 22:10
[2020-10-28 06:09] LABS: BASO # 0.1 x10^3/uL (0.0-0.2); BASO % 1 % (0-3); EOS # 0.2 x10^3/uL (0.0-0.7); EOS % 4 % (0-3); HEMATOCRIT 39.3 % (39.0-53.0); HEMOGLOBIN 13.2 g/dL (13.0-17.5); LYMPH # 1.2 x10^3/uL (1.0-4.8); LYMPH % 20 % (24-48); MEAN CORPUSCULAR HEMOGLOBIN 30 pg (25-35); MEAN CORPUSCULAR HGB CONC 34 g/dL (31-37); MEAN CORPUSCULAR VOLUME 88 fL (79-100); MONO # 0.5 x10^3/uL (0.0-1.1); MONO % 8 % (0-9); NEUT # 4.1 x10^3uL (1.8-7.7); NEUT % 67 % (31-73); PLATELET COUNT 206 x10^3/uL (140-400); RED BLOOD COUNT 4.47 x10^6/uL (4.30-5.70); RED CELL DISTRIBUTION WIDTH 14.6 % (11.5-14.5); WHITE BLOOD COUNT 6.1 x10^3/uL (4.0-11.0)
[2020-10-28 06:10] VITALS: BP 125/81
[2020-10-28 06:19] LABS: ALBUMIN 3.6 g/dL (3.4-5.0); ALBUMIN/GLOBULIN RATIO 1.2 (1.0-1.7); ALK PHOS 60 U/L (46-116); ALT (SGPT) 26 U/L (16-63); ANION GAP 5 (6-14); AST (SGOT) 21 U/L (15-37); BLOOD UREA NITROGEN 35 mg/dL (8-26); BUN/CREATININE RATIO 21 (6-20); CALCIUM 8.3 mg/dL (8.5-10.1); CARBON DIOXIDE 33 mmol/L (21-32); CHLORIDE 105 mmol/L (98-107); CREATININE 1.7 mg/dL (0.7-1.3); GFR 39.7; GLUCOSE 92 mg/dL (70-99); POTASSIUM 4.2 mmol/L (3.5-5.1); SODIUM 143 mmol/L (136-145); TOTAL BILIRUBIN 0.7 mg/dL (0.2-1.0); TOTAL PROTEIN 6.6 g/dL (6.4-8.2)
[2020-10-28 06:24] LABS: VAL ACID 74 mcg/mL (50-100)
--- NOTE | 2020-10-28 06:45 | PDOC ---
Exam Note: Fercho Note: This note is a late entry for 10/27/2020 covers elements not covered in my initial note. Subjective: The patient was seen individually in the morning of 10/27/2020 for a treatment team meeting with Niecy Naqvi, Ingris Serrano (renal social worker), Ingrid, activity therapy and Frieda ABREU, discussed and reviewed the chart. He slept 7 hours previous night. Average sleep is 6-1/2 hours. Appetite is 100%. The patient remains confused, has attended 2 groups in the past one week. No further aggression noted. He is tolerating the adjustment of Depakote, currently 250 mg 4 times a day, labs and level are awaited on 10/28. Mental Status Exam: The patient is oriented to himself. He is pleasant, smiling as I met with him, not very verbal. Insight and judgment, recent and remote memory, attention and concentration, fund of knowledge is poor consistent with his diagnoses. Laboratory Data: Reviewed. Impression: Major neurocognitive disorder Alzheimer vascular with delusion, depression, behavioral disturbance. Anxiety disorder unspecified. Impulse control disorder unspecified. Plan: Continue current psychotropics. Assessment: Vital Signs/I&O: Vital Signs Date Time Temp Pulse Resp B/P (MAP) Pulse Ox O2 Delivery O2 Flow Rate FiO2 10/28/20 06:10 97.2 74 12 125/81 (96) 99 10/27/20 05:47 Room Air I & O 10/27/20 10/27/20 10/28/20 15:00 23:00 07:00 Intake Total 720 ml 600 ml Balance 720 ml 600 ml Labs: Laboratory Tests Test 10/28/20 05:52 White Blood Count 6.1 x10^3/uL (4.0-11.0) Red Blood Count 4.47 x10^6/uL (4.30-5.70) Hemoglobin 13.2 g/dL (13.0-17.5) Hematocrit 39.3 % (39.0-53.0) Mean Corpuscular Volume 88 fL (79-100) Mean Corpuscular Hemoglobin 30 pg (25-35) Mean Corpuscular Hemoglobin Concent 34 g/dL (31-37) Red Cell Distribution Width 14.6 % (11.5-14.5) H Platelet Count 206 x10^3/uL (140-400) Neutrophils (%) (Auto) 67 % (31-73) Lymphocytes (%) (Auto) 20 % (24-48) L Monocytes (%) (Auto) 8 % (0-9) Eosinophils (%) (Auto) 4 % (0-3) H Basophils (%) (Auto) 1 % (0-3) Neutrophils # (Auto) 4.1 x10^3uL (1.8-7.7) Lymphocytes # (Auto) 1.2 x10^3/uL (1.0-4.8) Monocytes # (Auto) 0.5 x10^3/uL (0.0-1.1) Eosinophils # (Auto) 0.2 x10^3/uL (0.0-0.7) Basophils # (Auto) 0.1 x10^3/uL (0.0-0.2) Sodium Level 143 mmol/L (136-145) Potassium Level 4.2 mmol/L (3.5-5.1) Chloride Level 105 mmol/L (98-107) Carbon Dioxide Level 33 mmol/L (21-32) H Anion Gap 5 (6-14) L Blood Urea Nitrogen 35 mg/dL (8-26) H Creatinine 1.7 mg/dL (0.7-1.3) H Estimated GFR (Cockcroft-Gault) 39.7 BUN/Creatinine Ratio 21 (6-20) H Glucose Level 92 mg/dL (70-99) Calcium Level 8.3 mg/dL (8.5-10.1) L Total Bilirubin 0.7 mg/dL (0.2-1.0) Aspartate Amino Transferase (AST) 21 U/L (15-37) Alanine Aminotransferase (ALT) 26 U/L (16-63) Alkaline Phosphatase 60 U/L (46-116) Ammonia < 10 mcmol/L (11-34) L Total Protein 6.6 g/dL (6.4-8.2) Albumin 3.6 g/dL (3.4-5.0) Albumin/Globulin Ratio 1.2 (1.0-1.7) Valproic Acid Level 74 mcg/mL (50-100) Valproic Acid Last Dose Date 10/27/20 Valproic Acid Last Dose Time 2100 Current Medications: Meds: Laboratory Tests Test 10/28/20 05:52 White Blood Count 6.1 x10^3/uL Red Blood Count 4.47 x10^6/uL Hemoglobin 13.2 g/dL Hematocrit 39.3 % Mean Corpuscular Volume 88 fL Mean Corpuscular Hemoglobin 30 pg Mean Corpuscular Hemoglobin Concent 34 g/dL Red Cell Distribution Width 14.6 % Platelet Count 206 x10^3/uL Neutrophils (%) (Auto) 67 % Lymphocytes (%) (Auto) 20 % Monocytes (%) (Auto) 8 % Eosinophils (%) (Auto) 4 % Basophils (%) (Auto) 1 % Neutrophils # (Auto) 4.1 x10^3uL Lymphocytes # (Auto) 1.2 x10^3/uL Monocytes # (Auto) 0.5 x10^3/uL Eosinophils # (Auto) 0.2 x10^3/uL Basophils # (Auto) 0.1 x10^3/uL Sodium Level 143 mmol/L Potassium Level 4.2 mmol/L Chloride Level 105 mmol/L Carbon Dioxide Level 33 mmol/L Anion Gap 5 Blood Urea Nitrogen 35 mg/dL Creatinine 1.7 mg/dL Estimated GFR (Cockcroft-Gault) 39.7 BUN/Creatinine Ratio 21 Glucose Level 92 mg/dL Calcium Level 8.3 mg/dL Total Bilirubin 0.7 mg/dL Aspartate Amino Transf (AST/SGOT) 21 U/L Alanine Aminotransferase (ALT/SGPT) 26 U/L Alkaline Phosphatase 60 U/L Ammonia < 10 mcmol/L Total Protein 6.6 g/dL Albumin 3.6 g/dL Albumin/Globulin Ratio 1.2 Valproic Acid (Depakene) Level 74 mcg/mL Valproic Acid Last Dose Date 10/27/20 Valproic Acid Last Dose Time 2100 Current Medications Medications (Trade) Dose Ordered Sig/Ashvin Route PRN Reason Start Time Stop Time Status Last Admin Dose Admin Acetaminophen (Tylenol) 650 mg PRN Q6HRS PRN PO MILD PAIN / TEMP > 100.3'F 08/24/20 18:15 10/19/20 14:44 Multi-Ingredient Ointment (Analgesic [place]) 1 césar PRN QID PRN TP MUSCLE PAIN 08/24/20 18:15 Al Hydroxide/Mg Hydroxide (Mylanta Plus Xs) 15 ml PRN AFTMEALHC PRN PO DYSPEPSIA 08/24/20 18:15 Magnesium Hydroxide (Milk Of Magnesia) 2,400 mg PRN QHS PRN PO CONSTIPATION 08/24/20 18:15 Aspirin (Aspirin Chewable) 81 mg DAILY PO 08/25/20 09:00 10/27/20 08:30 Cetirizine HCl (ZyrTEC) 10 mg DAILY08 PO 08/25/20 08:00 10/27/20 08:32 Donepezil HCl (Aricept) 23 mg QHS PO 08/24/20 21:00 08/28/20 15:38 DC 08/27/20 20:34 Fluoxetine HCl (PROzac) 20 mg DAILY PO 08/25/20 09:00 10/27/20 08:31 Lorazepam (Ativan) 1 mg PRN Q4HRS PRN PO ANXIETY / AGITATION 08/24/20 18:45 09/04/20 16:12 DC 09/04/20 01:29 Atorvastatin Calcium (Lipitor) 40 mg QHS PO 08/24/20 21:00 10/27/20 19:49 Pantoprazole Sodium (Protonix) 40 mg DAILY08 PO 08/25/20 08:00 10/27/20 08:32 Multivitamins/ Calcium (Thera-M Plus) 1 tab DAILY PO 08/25/20 09:00 10/27/20 08:30 Mupirocin (Bactroban) 1 césar BID92 TP 08/25/20 09:00 09/03/20 12:35 DC 09/01/20 14:00 Fish Oil (Fish Oil) 1,000 mg DAILY PO 08/25/20 09:00 10/27/20 08:32 Olanzapine (ZyPREXA ZYDIS) 2.5 mg PRN Q2HR PRN PO PSYCHOSIS 08/24/20 19:45 10/25/20 15:29 Sertraline HCl (Zoloft) 25 mg DAILY PO 08/26/20 09:00 08/28/20 21:00 DC 08/28/20 08:37 Sertraline HCl (Zoloft) 50 mg DAILY PO 08/29/20 09:00 09/06/20 18:40 DC 09/04/20 08:58 Tamsulosin HCl (Flomax) 0.4 mg QHS PO 08/28/20 21:00 10/27/20 19:48 Mupirocin (Bactroban) 1 césar PRN BID PRN TP RASH 09/03/20 12:45 Diphenhydramine HCl (Benadryl) 50 mg 1X ONCE PO 09/04/20 21:00 09/04/20 21:01 DC 09/04/20 21:21 Olanzapine (ZyPREXA ZYDIS) 5 mg 1X ONCE PO 09/27/20 18:30 09/27/20 18:31 DC 09/27/20 18:30 Divalproex Sodium (Depakote Sprinkles) 125 mg 0900,1700 PO 09/28/20 17:00 10/12/20 17:08 DC 10/12/20 08:18 Furosemide (Lasix) 80 mg 1X ONCE PO 09/30/20 15:30 09/30/20 15:31 DC 09/30/20 16:00 Furosemide (Lasix) 80 mg DAILY PO 10/01/20 09:00 10/27/20 08:31 Potassium Chloride (Klor-Con) 20 meq DAILYWBKFT PO 10/01/20 08:00 10/27/20 08:32 Trazodone HCl (Desyrel) 50 mg PRN QHS PRN PO INSOMNIA 10/08/20 16:15 10/09/20 20:15 Divalproex Sodium (Depakote Sprinkles) 125 mg 0900,1300,1700,2100 PO 10/12/20 17:50 10/21/20 17:01 DC 10/21/20 12:26 Divalproex Sodium (Depakote Sprinkles) 125 mg 1300,1700 PO 10/21/20 17:00 10/25/20 17:17 DC 10/25/20 15:29 Divalproex Sodium (Depakote Sprinkles) 250 mg 0900,2100 PO 10/21/20 21:00 10/25/20 17:17 DC 10/25/20 09:09 Divalproex Sodium (Depakote Sprinkles) 250 mg QID PO 10/25/20 17:15 10/27/20 19:47 I have reviewed the current psychotropics carefully including drug interactions. Risk benefit ratio favors no change other than as noted in my dictated progress note. Diagnosis: Problems: (1) Impulse control disorder, unspecified (2) Anxiety disorder, unspecified (3) Dementia, vascular, with depression (4) Dementia, vascular, with delusions (5) Dementia in Alzheimer's disease with depression (6) Dementia in Alzheimer's disease with delusions (7) Dementia of the Alzheimer's type with early onset with behavioral disturbance (8) Major neurocognitive disorder VERENA AGUSTIN MD Oct 28, 2020 06:45
[2020-10-28] MEDS: PANTOPRAZOLE 40 MG TABLET. PO SCH (09:16)
[2020-10-28] MEDS: OMEGA-3 FATTY ACIDS/FISH OIL 1,000 MG CAPSULE. PO SCH (09:16)
[2020-10-28] MEDS: MULTIVITAMIN with MINERAL TABLET. PO SCH (09:17)
[2020-10-28] MEDS: ASPIRIN CHEWABLE 81 MG TABLET. PO SCH (09:17)
[2020-10-28] MEDS: POTASSIUM CHLORIDE 20 MEQ TABLET.ER. PO SCH (09:17)
[2020-10-28] MEDS: DIVALPROEX 125 MG CAP.SPRINK PO SCH ×4 (09:17→20:19)
[2020-10-28] MEDS: FUROSEMIDE 40 MG TABLET PO SCH (09:17)
[2020-10-28] MEDS: CETIRIZINE HCL 10 MG TABLET PO SCH (09:17)
[2020-10-28 15:51] VITALS: BP 102/67
[2020-10-28] MEDS: ATORVASTATIN CALCIUM 20 MG TABLET PO SCH (20:19)
[2020-10-28] MEDS: TAMSULOSIN 0.4 MG CAP.ER.24H. PO SCH (20:19)
--- NOTE | 2020-10-28 21:54 | PDOC ---
Exam Note: Fercho Note: Please also refer to the separate dictated note~for this date of service dictated separately.~Patient seen individually. Discussed the patient with Nursing staff reviewed the chart.~Reviewed interim history and current functioning. Reviewed vital signs,~Labs/ Radiology~and current medications noted below. Continue current treatment with the changes noted in the dictated addendum note Assessment: Vital Signs/I&O: Vital Signs Date Time Temp Pulse Resp B/P (MAP) Pulse Ox O2 Delivery O2 Flow Rate FiO2 10/28/20 15:51 97.2 78 20 102/67 (79) 95 10/27/20 05:47 Room Air I & O 10/27/20 10/27/20 10/28/20 15:00 23:00 07:00 Intake Total 720 ml 600 ml Balance 720 ml 600 ml Labs: Laboratory Tests Test 10/28/20 05:52 White Blood Count 6.1 x10^3/uL (4.0-11.0) Red Blood Count 4.47 x10^6/uL (4.30-5.70) Hemoglobin 13.2 g/dL (13.0-17.5) Hematocrit 39.3 % (39.0-53.0) Mean Corpuscular Volume 88 fL (79-100) Mean Corpuscular Hemoglobin 30 pg (25-35) Mean Corpuscular Hemoglobin Concent 34 g/dL (31-37) Red Cell Distribution Width 14.6 % (11.5-14.5) H Platelet Count 206 x10^3/uL (140-400) Neutrophils (%) (Auto) 67 % (31-73) Lymphocytes (%) (Auto) 20 % (24-48) L Monocytes (%) (Auto) 8 % (0-9) Eosinophils (%) (Auto) 4 % (0-3) H Basophils (%) (Auto) 1 % (0-3) Neutrophils # (Auto) 4.1 x10^3uL (1.8-7.7) Lymphocytes # (Auto) 1.2 x10^3/uL (1.0-4.8) Monocytes # (Auto) 0.5 x10^3/uL (0.0-1.1) Eosinophils # (Auto) 0.2 x10^3/uL (0.0-0.7) Basophils # (Auto) 0.1 x10^3/uL (0.0-0.2) Sodium Level 143 mmol/L (136-145) Potassium Level 4.2 mmol/L (3.5-5.1) Chloride Level 105 mmol/L (98-107) Carbon Dioxide Level 33 mmol/L (21-32) H Anion Gap 5 (6-14) L Blood Urea Nitrogen 35 mg/dL (8-26) H Creatinine 1.7 mg/dL (0.7-1.3) H Estimated GFR (Cockcroft-Gault) 39.7 BUN/Creatinine Ratio 21 (6-20) H Glucose Level 92 mg/dL (70-99) Calcium Level 8.3 mg/dL (8.5-10.1) L Total Bilirubin 0.7 mg/dL (0.2-1.0) Aspartate Amino Transferase (AST) 21 U/L (15-37) Alanine Aminotransferase (ALT) 26 U/L (16-63) Alkaline Phosphatase 60 U/L (46-116) Ammonia < 10 mcmol/L (11-34) L Total Protein 6.6 g/dL (6.4-8.2) Albumin 3.6 g/dL (3.4-5.0) Albumin/Globulin Ratio 1.2 (1.0-1.7) Valproic Acid Level 74 mcg/mL (50-100) Valproic Acid Last Dose Date 10/27/20 Valproic Acid Last Dose Time 2100 Current Medications: Meds: Laboratory Tests Test 10/28/20 05:52 White Blood Count 6.1 x10^3/uL Red Blood Count 4.47 x10^6/uL Hemoglobin 13.2 g/dL Hematocrit 39.3 % Mean Corpuscular Volume 88 fL Mean Corpuscular Hemoglobin 30 pg Mean Corpuscular Hemoglobin Concent 34 g/dL Red Cell Distribution Width 14.6 % Platelet Count 206 x10^3/uL Neutrophils (%) (Auto) 67 % Lymphocytes (%) (Auto) 20 % Monocytes (%) (Auto) 8 % Eosinophils (%) (Auto) 4 % Basophils (%) (Auto) 1 % Neutrophils # (Auto) 4.1 x10^3uL Lymphocytes # (Auto) 1.2 x10^3/uL Monocytes # (Auto) 0.5 x10^3/uL Eosinophils # (Auto) 0.2 x10^3/uL Basophils # (Auto) 0.1 x10^3/uL Sodium Level 143 mmol/L Potassium Level 4.2 mmol/L Chloride Level 105 mmol/L Carbon Dioxide Level 33 mmol/L Anion Gap 5 Blood Urea Nitrogen 35 mg/dL Creatinine 1.7 mg/dL Estimated GFR (Cockcroft-Gault) 39.7 BUN/Creatinine Ratio 21 Glucose Level 92 mg/dL Calcium Level 8.3 mg/dL Total Bilirubin 0.7 mg/dL Aspartate Amino Transf (AST/SGOT) 21 U/L Alanine Aminotransferase (ALT/SGPT) 26 U/L Alkaline Phosphatase 60 U/L Ammonia < 10 mcmol/L Total Protein 6.6 g/dL Albumin 3.6 g/dL Albumin/Globulin Ratio 1.2 Valproic Acid (Depakene) Level 74 mcg/mL Valproic Acid Last Dose Date 10/27/20 Valproic Acid Last Dose Time 2100 Current Medications Medications (Trade) Dose Ordered Sig/Ashvin Route PRN Reason Start Time Stop Time Status Last Admin Dose Admin Acetaminophen (Tylenol) 650 mg PRN Q6HRS PRN PO MILD PAIN / TEMP > 100.3'F 08/24/20 18:15 10/19/20 14:44 Multi-Ingredient Ointment (Analgesic [place]) 1 césar PRN QID PRN TP MUSCLE PAIN 08/24/20 18:15 Al Hydroxide/Mg Hydroxide (Mylanta Plus Xs) 15 ml PRN AFTMEALHC PRN PO DYSPEPSIA 08/24/20 18:15 Magnesium Hydroxide (Milk Of Magnesia) 2,400 mg PRN QHS PRN PO CONSTIPATION 08/24/20 18:15 Aspirin (Aspirin Chewable) 81 mg DAILY PO 08/25/20 09:00 10/28/20 09:17 Cetirizine HCl (ZyrTEC) 10 mg DAILY08 PO 08/25/20 08:00 10/28/20 09:17 Donepezil HCl (Aricept) 23 mg QHS PO 08/24/20 21:00 08/28/20 15:38 DC 08/27/20 20:34 Fluoxetine HCl (PROzac) 20 mg DAILY PO 08/25/20 09:00 10/28/20 09:16 Lorazepam (Ativan) 1 mg PRN Q4HRS PRN PO ANXIETY / AGITATION 08/24/20 18:45 09/04/20 16:12 DC 09/04/20 01:29 Atorvastatin Calcium (Lipitor) 40 mg QHS PO 08/24/20 21:00 10/28/20 20:19 Pantoprazole Sodium (Protonix) 40 mg DAILY08 PO 08/25/20 08:00 10/28/20 09:16 Multivitamins/ Calcium (Thera-M Plus) 1 tab DAILY PO 08/25/20 09:00 10/28/20 09:17 Mupirocin (Bactroban) 1 césar BID92 TP 08/25/20 09:00 09/03/20 12:35 DC 09/01/20 14:00 Fish Oil (Fish Oil) 1,000 mg DAILY PO 08/25/20 09:00 10/28/20 09:16 Olanzapine (ZyPREXA ZYDIS) 2.5 mg PRN Q2HR PRN PO PSYCHOSIS 08/24/20 19:45 10/25/20 15:29 Sertraline HCl (Zoloft) 25 mg DAILY PO 08/26/20 09:00 08/28/20 21:00 DC 08/28/20 08:37 Sertraline HCl (Zoloft) 50 mg DAILY PO 08/29/20 09:00 09/06/20 18:40 DC 09/04/20 08:58 Tamsulosin HCl (Flomax) 0.4 mg QHS PO 08/28/20 21:00 10/28/20 20:19 Mupirocin (Bactroban) 1 césar PRN BID PRN TP RASH 09/03/20 12:45 Diphenhydramine HCl (Benadryl) 50 mg 1X ONCE PO 09/04/20 21:00 09/04/20 21:01 DC 09/04/20 21:21 Olanzapine (ZyPREXA ZYDIS) 5 mg 1X ONCE PO 09/27/20 18:30 09/27/20 18:31 DC 09/27/20 18:30 Divalproex Sodium (Depakote Sprinkles) 125 mg 0900,1700 PO 09/28/20 17:00 10/12/20 17:08 DC 10/12/20 08:18 Furosemide (Lasix) 80 mg 1X ONCE PO 09/30/20 15:30 09/30/20 15:31 DC 09/30/20 16:00 Furosemide (Lasix) 80 mg DAILY PO 10/01/20 09:00 10/28/20 09:17 Potassium Chloride (Klor-Con) 20 meq DAILYWBKFT PO 10/01/20 08:00 10/28/20 09:17 Trazodone HCl (Desyrel) 50 mg PRN QHS PRN PO INSOMNIA 10/08/20 16:15 10/09/20 20:15 Divalproex Sodium (Depakote Sprinkles) 125 mg 0900,1300,1700,2100 PO 10/12/20 17:50 10/21/20 17:01 DC 10/21/20 12:26 Divalproex Sodium (Depakote Sprinkles) 125 mg 1300,1700 PO 10/21/20 17:00 10/25/20 17:17 DC 10/25/20 15:29 Divalproex Sodium (Depakote Sprinkles) 250 mg 0900,2100 PO 10/21/20 21:00 10/25/20 17:17 DC 10/25/20 09:09 Divalproex Sodium (Depakote Sprinkles) 250 mg QID PO 10/25/20 17:15 10/28/20 20:19 I have reviewed the current psychotropics carefully including drug interactions. Risk benefit ratio favors no change other than as noted in my dictated progress note. Diagnosis: Problems: (1) Impulse control disorder, unspecified (2) Anxiety disorder, unspecified (3) Dementia, vascular, with depression (4) Dementia, vascular, with delusions (5) Dementia in Alzheimer's disease with depression (6) Dementia in Alzheimer's disease with delusions (7) Dementia of the Alzheimer's type with early onset with behavioral disturbance (8) Major neurocognitive disorder VERENA AGUSTIN MD Oct 28, 2020 21:54
[2020-10-29 06:08] VITALS: BP 119/75
[2020-10-29] MEDS: MULTIVITAMIN with MINERAL TABLET. PO SCH (08:22)
[2020-10-29] MEDS: OMEGA-3 FATTY ACIDS/FISH OIL 1,000 MG CAPSULE. PO SCH (08:22)
[2020-10-29] MEDS: DIVALPROEX 125 MG CAP.SPRINK PO SCH ×4 (08:22→20:14)
[2020-10-29] MEDS: CETIRIZINE HCL 10 MG TABLET PO SCH (08:22)
[2020-10-29] MEDS: PANTOPRAZOLE 40 MG TABLET. PO SCH (08:22)
[2020-10-29] MEDS: FUROSEMIDE 40 MG TABLET PO SCH (08:23)
[2020-10-29] MEDS: ASPIRIN CHEWABLE 81 MG TABLET. PO SCH (08:23)
[2020-10-29] MEDS: POTASSIUM CHLORIDE 20 MEQ TABLET.ER. PO SCH (08:23)
[2020-10-29 15:52] VITALS: BP 116/76
[2020-10-29] MEDS: ATORVASTATIN CALCIUM 20 MG TABLET PO SCH (20:13)
[2020-10-29] MEDS: TAMSULOSIN 0.4 MG CAP.ER.24H. PO SCH (20:13)
--- NOTE | 2020-10-29 22:10 | PDOC ---
Exam Note: Fercho Note: Please also refer to the separate dictated note~for this date of service dictated separately.~Patient seen individually. Discussed the patient with Nursing staff reviewed the chart.~Reviewed interim history and current functioning. Reviewed vital signs,~Labs/ Radiology~and current medications noted below. Continue current treatment with the changes noted in the dictated addendum note Assessment: Vital Signs/I&O: Vital Signs Date Time Temp Pulse Resp B/P (MAP) Pulse Ox O2 Delivery O2 Flow Rate FiO2 10/29/20 15:52 98.3 80 18 116/76 (89) 97 10/27/20 05:47 Room Air I & O 10/28/20 10/28/20 10/29/20 15:00 23:00 07:00 Intake Total 600 ml 600 ml Balance 600 ml 600 ml Labs: Laboratory Tests Test 10/29/20 07:00 SARS-CoV-2 (PCR) Negative (NEGATIVE) Current Medications: Meds: Laboratory Tests Test 10/29/20 07:00 Coronavirus (COVID-19)(PCR) Negative Current Medications Medications (Trade) Dose Ordered Sig/Ashvin Route PRN Reason Start Time Stop Time Status Last Admin Dose Admin Acetaminophen (Tylenol) 650 mg PRN Q6HRS PRN PO MILD PAIN / TEMP > 100.3'F 08/24/20 18:15 10/19/20 14:44 Multi-Ingredient Ointment (Analgesic [place]) 1 césar PRN QID PRN TP MUSCLE PAIN 08/24/20 18:15 Al Hydroxide/Mg Hydroxide (Mylanta Plus Xs) 15 ml PRN AFTMEALHC PRN PO DYSPEPSIA 08/24/20 18:15 Magnesium Hydroxide (Milk Of Magnesia) 2,400 mg PRN QHS PRN PO CONSTIPATION 08/24/20 18:15 Aspirin (Aspirin Chewable) 81 mg DAILY PO 08/25/20 09:00 10/29/20 08:23 Cetirizine HCl (ZyrTEC) 10 mg DAILY08 PO 08/25/20 08:00 10/29/20 08:22 Donepezil HCl (Aricept) 23 mg QHS PO 08/24/20 21:00 08/28/20 15:38 DC 08/27/20 20:34 Fluoxetine HCl (PROzac) 20 mg DAILY PO 08/25/20 09:00 10/29/20 08:23 Lorazepam (Ativan) 1 mg PRN Q4HRS PRN PO ANXIETY / AGITATION 08/24/20 18:45 09/04/20 16:12 DC 09/04/20 01:29 Atorvastatin Calcium (Lipitor) 40 mg QHS PO 08/24/20 21:00 10/29/20 20:13 Pantoprazole Sodium (Protonix) 40 mg DAILY08 PO 08/25/20 08:00 10/29/20 08:22 Multivitamins/ Calcium (Thera-M Plus) 1 tab DAILY PO 08/25/20 09:00 10/29/20 08:22 Mupirocin (Bactroban) 1 césar BID92 TP 08/25/20 09:00 09/03/20 12:35 DC 09/01/20 14:00 Fish Oil (Fish Oil) 1,000 mg DAILY PO 08/25/20 09:00 10/29/20 08:22 Olanzapine (ZyPREXA ZYDIS) 2.5 mg PRN Q2HR PRN PO PSYCHOSIS 08/24/20 19:45 10/25/20 15:29 Sertraline HCl (Zoloft) 25 mg DAILY PO 08/26/20 09:00 08/28/20 21:00 DC 08/28/20 08:37 Sertraline HCl (Zoloft) 50 mg DAILY PO 08/29/20 09:00 09/06/20 18:40 DC 09/04/20 08:58 Tamsulosin HCl (Flomax) 0.4 mg QHS PO 08/28/20 21:00 10/29/20 20:13 Mupirocin (Bactroban) 1 césar PRN BID PRN TP RASH 09/03/20 12:45 Diphenhydramine HCl (Benadryl) 50 mg 1X ONCE PO 09/04/20 21:00 09/04/20 21:01 DC 09/04/20 21:21 Olanzapine (ZyPREXA ZYDIS) 5 mg 1X ONCE PO 09/27/20 18:30 09/27/20 18:31 DC 09/27/20 18:30 Divalproex Sodium (Depakote Sprinkles) 125 mg 0900,1700 PO 09/28/20 17:00 10/12/20 17:08 DC 10/12/20 08:18 Furosemide (Lasix) 80 mg 1X ONCE PO 09/30/20 15:30 09/30/20 15:31 DC 09/30/20 16:00 Furosemide (Lasix) 80 mg DAILY PO 10/01/20 09:00 10/29/20 08:23 Potassium Chloride (Klor-Con) 20 meq DAILYWBKFT PO 10/01/20 08:00 10/29/20 08:23 Trazodone HCl (Desyrel) 50 mg PRN QHS PRN PO INSOMNIA 10/08/20 16:15 10/09/20 20:15 Divalproex Sodium (Depakote Sprinkles) 125 mg 0900,1300,1700,2100 PO 10/12/20 17:50 10/21/20 17:01 DC 10/21/20 12:26 Divalproex Sodium (Depakote Sprinkles) 125 mg 1300,1700 PO 10/21/20 17:00 10/25/20 17:17 DC 10/25/20 15:29 Divalproex Sodium (Depakote Sprinkles) 250 mg 0900,2100 PO 10/21/20 21:00 10/25/20 17:17 DC 10/25/20 09:09 Divalproex Sodium (Depakote Sprinkles) 250 mg QID PO 10/25/20 17:15 10/29/20 20:14 I have reviewed the current psychotropics carefully including drug interactions. Risk benefit ratio favors no change other than as noted in my dictated progress note. Diagnosis: Problems: (1) Impulse control disorder, unspecified (2) Anxiety disorder, unspecified (3) Dementia, vascular, with depression (4) Dementia, vascular, with delusions (5) Dementia in Alzheimer's disease with depression (6) Dementia in Alzheimer's disease with delusions (7) Dementia of the Alzheimer's type with early onset with behavioral disturbance (8) Major neurocognitive disorder VERENA AGUSTIN MD Oct 29, 2020 22:10
[2020-10-30 05:34] VITALS: BP 109/76
[2020-10-30] MEDS: MULTIVITAMIN with MINERAL TABLET. PO SCH (07:49)
[2020-10-30] MEDS: DIVALPROEX 125 MG CAP.SPRINK PO SCH ×4 (07:49→20:24)
[2020-10-30] MEDS: PANTOPRAZOLE 40 MG TABLET. PO SCH (07:49)
[2020-10-30] MEDS: ASPIRIN CHEWABLE 81 MG TABLET. PO SCH (07:49)
[2020-10-30] MEDS: POTASSIUM CHLORIDE 20 MEQ TABLET.ER. PO SCH (07:49)
[2020-10-30] MEDS: CETIRIZINE HCL 10 MG TABLET PO SCH (07:49)
[2020-10-30] MEDS: FUROSEMIDE 40 MG TABLET PO SCH (07:50)
[2020-10-30] MEDS: OMEGA-3 FATTY ACIDS/FISH OIL 1,000 MG CAPSULE. PO SCH (07:50)
--- NOTE | 2020-10-30 08:01 | PDOC ---
Exam Note: Fercho Note: This note is a late entry for 10/28/2020 covers elements not covered in my initial note. Subjective: The patient was seen individually in the evening of 10/28/2020 with Spring ABREU, discussed and reviewed the chart. He slept 8-1/2 hours previous night. The patient remains confused. Mental Status Exam: The patient is oriented to himself. As noted in my earlier notes, the patient today on 10/28 remained pleasant, cooperative, smiling, o blivious to his circumstances, quite confused, but at times able to follow along when I was looking down into the [employer] with him. Insight and judgment, recent and remote memory, attention and concentration, fund of knowledge is poor consistent with his diagnoses. Laboratory Data: Reviewed. Impression: Major neurocognitive disorder Alzheimer vascular with delusion, dep ression, behavioral disturbance. Anxiety disorder unspecified. Impulse control disorder unspecified. Plan: Continue current psychotropics. Assessment: Vital Signs/I&O: Vital Signs Date Time Temp Pulse Resp B/P (MAP) Pulse Ox O2 Delivery O2 Flow Rate FiO2 10/30/20 05:34 97.1 76 22 109/76 (87) 96 10/27/20 05:47 Room Air I & O 10/29/20 10/29/20 10/30/20 15:00 23:00 07:00 Intake Total 760 ml 480 ml Balance 760 ml 480 ml Current Medications: Meds: Current Medications Medications (Trade) Dose Ordered Sig/Ashvin Route PRN Reason Start Time Stop Time Status Last Admin Dose Admin Acetaminophen (Tylenol) 650 mg PRN Q6HRS PRN PO MILD PAIN / TEMP > 100.3'F 08/24/20 18:15 10/19/20 14:44 Multi-Ingredient Ointment (Analgesic [place]) 1 césar PRN QID PRN TP MUSCLE PAIN 08/24/20 18:15 Al Hydroxide/Mg Hydroxide (Mylanta Plus Xs) 15 ml PRN AFTMEALHC PRN PO DYSPEPSIA 08/24/20 18:15 Magnesium Hydroxide (Milk Of Magnesia) 2,400 mg PRN QHS PRN PO CONSTIPATION 08/24/20 18:15 Aspirin (Aspirin Chewable) 81 mg DAILY PO 08/25/20 09:00 10/30/20 07:49 Cetirizine HCl (ZyrTEC) 10 mg DAILY08 PO 08/25/20 08:00 10/30/20 07:49 Donepezil HCl (Aricept) 23 mg QHS PO 08/24/20 21:00 08/28/20 15:38 DC 08/27/20 20:34 Fluoxetine HCl (PROzac) 20 mg DAILY PO 08/25/20 09:00 10/30/20 07:49 Lorazepam (Ativan) 1 mg PRN Q4HRS PRN PO ANXIETY / AGITATION 08/24/20 18:45 09/04/20 16:12 DC 09/04/20 01:29 Atorvastatin Calcium (Lipitor) 40 mg QHS PO 08/24/20 21:00 10/29/20 20:13 Pantoprazole Sodium (Protonix) 40 mg DAILY08 PO 08/25/20 08:00 10/30/20 07:49 Multivitamins/ Calcium (Thera-M Plus) 1 tab DAILY PO 08/25/20 09:00 10/30/20 07:49 Mupirocin (Bactroban) 1 césar BID92 TP 08/25/20 09:00 09/03/20 12:35 DC 09/01/20 14:00 Fish Oil (Fish Oil) 1,000 mg DAILY PO 08/25/20 09:00 10/29/20 08:22 Olanzapine (ZyPREXA ZYDIS) 2.5 mg PRN Q2HR PRN PO PSYCHOSIS 08/24/20 19:45 10/25/20 15:29 Sertraline HCl (Zoloft) 25 mg DAILY PO 08/26/20 09:00 08/28/20 21:00 DC 08/28/20 08:37 Sertraline HCl (Zoloft) 50 mg DAILY PO 08/29/20 09:00 09/06/20 18:40 DC 09/04/20 08:58 Tamsulosin HCl (Flomax) 0.4 mg QHS PO 08/28/20 21:00 10/29/20 20:13 Mupirocin (Bactroban) 1 césar PRN BID PRN TP RASH 09/03/20 12:45 Diphenhydramine HCl (Benadryl) 50 mg 1X ONCE PO 09/04/20 21:00 09/04/20 21:01 DC 09/04/20 21:21 Olanzapine (ZyPREXA ZYDIS) 5 mg 1X ONCE PO 09/27/20 18:30 09/27/20 18:31 DC 09/27/20 18:30 Divalproex Sodium (Depakote Sprinkles) 125 mg 0900,1700 PO 09/28/20 17:00 10/12/20 17:08 DC 10/12/20 08:18 Furosemide (Lasix) 80 mg 1X ONCE PO 09/30/20 15:30 09/30/20 15:31 DC 09/30/20 16:00 Furosemide (Lasix) 80 mg DAILY PO 10/01/20 09:00 10/30/20 07:50 Potassium Chloride (Klor-Con) 20 meq [id number] PO 10/01/20 08:00 10/30/20 07:49 Trazodone HCl (Desyrel) 50 mg PRN QHS PRN PO INSOMNIA 10/08/20 16:15 10/09/20 20:15 Divalproex Sodium (Depakote Sprinkles) 125 mg 0900,1300,1700,2100 PO 10/12/20 17:50 10/21/20 17:01 DC 10/21/20 12:26 Divalproex Sodium (Depakote Sprinkles) 125 mg 1300,1700 PO 10/21/20 17:00 10/25/20 17:17 DC 10/25/20 15:29 Divalproex Sodium (Depakote Sprinkles) 250 mg 0900,2100 PO 10/21/20 21:00 10/25/20 17:17 DC 10/25/20 09:09 Divalproex Sodium (Depakote Sprinkles) 250 mg QID PO 10/25/20 17:15 10/30/20 07:49 I have reviewed the current psychotropics carefully including drug interactions. Risk benefit ratio favors no change other than as noted in my dictated progress note. Diagnosis: Problems: (1) Impulse control disorder, unspecified (2) Anxiety disorder, unspecified (3) Dementia, vascular, with depression (4) Dementia, vascular, with delusions (5) Dementia in Alzheimer's disease with depression (6) Dementia in Alzheimer's disease with delusions (7) Dementia of the Alzheimer's type with early onset with behavioral disturbance (8) Major neurocognitive disorder VAMSI,MAN M MD Oct 30, 2020 08:01
--- NOTE | 2020-10-30 08:25 | PDOC ---
Exam Note: Fercho Note: This note is a late entry for 10/29/2020 covers elements not covered in my initial note. Subjective: The patient was seen individually in the evening of 10/29/2020 with Tala RN, discussed and reviewed the chart. He slept 7 hours previous night. The patient has been calm, cooperative. He seems more confused. Per nursing report is having difficulty comprehending how to take his medications. As I met with him in the evening in the dayroom, he had eaten a vanilla ice-cream and quite a large part of it was on his clothes. He otherwise remains pleasant, smiling, oblivious to his surroundings. Mental Status Exam: The patient is oriented to himself. Insight and judgment, recent and remote memory, attention and concentration, fund of knowledge is poor consistent with his diagnoses. Laboratory Data: Reviewed. Impression: Major neurocognitive disorder Alzheimer vascular with delusion, depression, behavioral disturbance. Anxiety disorder unspecified. Impulse control disorder unspecified. Plan: Continue current psychotropics. He is tolerating Depakote at current dosage. Adjust as clinically indicated. Assessment: Vital Signs/I&O: Vital Signs Date Time Temp Pulse Resp B/P (MAP) Pulse Ox O2 Delivery O2 Flow Rate FiO2 10/30/20 05:34 97.1 76 22 109/76 (87) 96 10/27/20 05:47 Room Air I & O 10/29/20 10/29/20 10/30/20 15:00 23:00 07:00 Intake Total 760 ml 480 ml Balance 760 ml 480 ml Current Medications: Meds: Current Medications Medications (Trade) Dose Ordered Sig/Ashvin Route PRN Reason Start Time Stop Time Status Last Admin Dose Admin Acetaminophen (Tylenol) 650 mg PRN Q6HRS PRN PO MILD PAIN / TEMP > 100.3'F 08/24/20 18:15 10/19/20 14:44 Multi-Ingredient Ointment (Analgesic [place]) 1 césar PRN QID PRN TP MUSCLE PAIN 08/24/20 18:15 Al Hydroxide/Mg Hydroxide (Mylanta Plus Xs) 15 ml PRN AFTMEALHC PRN PO DYSPEPSIA 08/24/20 18:15 Magnesium Hydroxide (Milk Of Magnesia) 2,400 mg PRN QHS PRN PO CONSTIPATION 08/24/20 18:15 Aspirin (Aspirin Chewable) 81 mg DAILY PO 08/25/20 09:00 10/30/20 07:49 Cetirizine HCl (ZyrTEC) 10 mg DAILY08 PO 08/25/20 08:00 10/30/20 07:49 Donepezil HCl (Aricept) 23 mg QHS PO 08/24/20 21:00 08/28/20 15:38 DC 08/27/20 20:34 Fluoxetine HCl (PROzac) 20 mg DAILY PO 08/25/20 09:00 10/30/20 07:49 Lorazepam (Ativan) 1 mg PRN Q4HRS PRN PO ANXIETY / AGITATION 08/24/20 18:45 09/04/20 16:12 DC 09/04/20 01:29 Atorvastatin Calcium (Lipitor) 40 mg QHS PO 08/24/20 21:00 10/29/20 20:13 Pantoprazole Sodium (Protonix) 40 mg DAILY08 PO 08/25/20 08:00 10/30/20 07:49 Multivitamins/ Calcium (Thera-M Plus) 1 tab DAILY PO 08/25/20 09:00 10/30/20 07:49 Mupirocin (Bactroban) 1 césar BID92 TP 08/25/20 09:00 09/03/20 12:35 DC 09/01/20 14:00 Fish Oil (Fish Oil) 1,000 mg DAILY PO 08/25/20 09:00 10/29/20 08:22 Olanzapine (ZyPREXA ZYDIS) 2.5 mg PRN Q2HR PRN PO PSYCHOSIS 08/24/20 19:45 10/25/20 15:29 Sertraline HCl (Zoloft) 25 mg DAILY PO 08/26/20 09:00 08/28/20 21:00 DC 08/28/20 08:37 Sertraline HCl (Zoloft) 50 mg DAILY PO 08/29/20 09:00 09/06/20 18:40 DC 09/04/20 08:58 Tamsulosin HCl (Flomax) 0.4 mg QHS PO 08/28/20 21:00 10/29/20 20:13 Mupirocin (Bactroban) 1 césar PRN BID PRN TP RASH 09/03/20 12:45 Diphenhydramine HCl (Benadryl) 50 mg 1X ONCE PO 09/04/20 21:00 09/04/20 21:01 DC 09/04/20 21:21 Olanzapine (ZyPREXA ZYDIS) 5 mg 1X ONCE PO 09/27/20 18:30 09/27/20 18:31 DC 09/27/20 18:30 Divalproex Sodium (Depakote Sprinkles) 125 mg 0900,1700 PO 09/28/20 17:00 10/12/20 17:08 DC 10/12/20 08:18 Furosemide (Lasix) 80 mg 1X ONCE PO 09/30/20 15:30 09/30/20 15:31 DC 09/30/20 16:00 Furosemide (Lasix) 80 mg DAILY PO 10/01/20 09:00 10/30/20 07:50 Potassium Chloride (Klor-Con) 20 meq DAILYWBKFT PO 10/01/20 08:00 10/30/20 07:49 Trazodone HCl (Desyrel) 50 mg PRN QHS PRN PO INSOMNIA 10/08/20 16:15 10/09/20 20:15 Divalproex Sodium (Depakote Sprinkles) 125 mg 0900,1300,1700,2100 PO 10/12/20 17:50 10/21/20 17:01 DC 10/21/20 12:26 Divalproex Sodium (Depakote Sprinkles) 125 mg 1300,1700 PO 10/21/20 17:00 10/25/20 17:17 DC 10/25/20 15:29 Divalproex Sodium (Depakote Sprinkles) 250 mg 0900,2100 PO 10/21/20 21:00 10/25/20 17:17 DC 10/25/20 09:09 Divalproex Sodium (Depakote Sprinkles) 250 mg QID PO 10/25/20 17:15 10/30/20 07:49 I have reviewed the current psychotropics carefully including drug interactions. Risk benefit ratio favors no change other than as noted in my dictated progress note. Diagnosis: Problems: (1) Impulse control disorder, unspecified (2) Anxiety disorder, unspecified (3) Dementia, vascular, with depression (4) Dementia, vascular, with delusions (5) Dementia in Alzheimer's disease with depression (6) Dementia in Alzheimer's disease with delusions (7) Dementia of the Alzheimer's type with early onset with behavioral disturbance (8) Major neurocognitive disorder VERENA AGUSTIN MD Oct 30, 2020 08:25
[2020-10-30 15:58] VITALS: BP 124/79
[2020-10-30] MEDS: ATORVASTATIN CALCIUM 20 MG TABLET PO SCH (20:24)
[2020-10-30] MEDS: TAMSULOSIN 0.4 MG CAP.ER.24H. PO SCH (20:24)
--- NOTE | 2020-10-30 22:02 | PDOC ---
Exam Note: Fercho Note: Please also refer to the separate dictated note~for this date of service dictated separately.~Patient seen individually. Discussed the patient with Nursing staff reviewed the chart.~Reviewed interim history and current functioning. Reviewed vital signs,~Labs/ Radiology~and current medications noted below. Continue current treatment with the changes noted in the dictated addendum note Assessment: Vital Signs/I&O: Vital Signs Date Time Temp Pulse Resp B/P (MAP) Pulse Ox O2 Delivery O2 Flow Rate FiO2 10/30/20 15:58 97.1 81 18 124/79 (94) 98 10/27/20 05:47 Room Air I & O 10/29/20 10/29/20 10/30/20 15:00 23:00 07:00 Intake Total 760 ml 480 ml Balance 760 ml 480 ml Current Medications: Meds: Current Medications Medications (Trade) Dose Ordered Sig/Ashvin Route PRN Reason Start Time Stop Time Status Last Admin Dose Admin Acetaminophen (Tylenol) 650 mg PRN Q6HRS PRN PO MILD PAIN / TEMP > 100.3'F 08/24/20 18:15 10/19/20 14:44 Multi-Ingredient Ointment (Analgesic [place]) 1 césar PRN QID PRN TP MUSCLE PAIN 08/24/20 18:15 Al Hydroxide/Mg Hydroxide (Mylanta Plus Xs) 15 ml PRN AFTMEALHC PRN PO DYSPEPSIA 08/24/20 18:15 Magnesium Hydroxide (Milk Of Magnesia) 2,400 mg PRN QHS PRN PO CONSTIPATION 08/24/20 18:15 Aspirin (Aspirin Chewable) 81 mg DAILY PO 08/25/20 09:00 10/30/20 07:49 Cetirizine HCl (ZyrTEC) 10 mg DAILY08 PO 08/25/20 08:00 10/30/20 07:49 Donepezil HCl (Aricept) 23 mg QHS PO 08/24/20 21:00 08/28/20 15:38 DC 08/27/20 20:34 Fluoxetine HCl (PROzac) 20 mg DAILY PO 08/25/20 09:00 10/30/20 07:49 Lorazepam (Ativan) 1 mg PRN Q4HRS PRN PO ANXIETY / AGITATION 08/24/20 18:45 09/04/20 16:12 DC 09/04/20 01:29 Atorvastatin Calcium (Lipitor) 40 mg QHS PO 08/24/20 21:00 10/30/20 20:24 Pantoprazole Sodium (Protonix) 40 mg DAILY08 PO 08/25/20 08:00 10/30/20 07:49 Multivitamins/ Calcium (Thera-M Plus) 1 tab DAILY PO 08/25/20 09:00 10/30/20 07:49 Mupirocin (Bactroban) 1 césar BID92 TP 08/25/20 09:00 09/03/20 12:35 DC 09/01/20 14:00 Fish Oil (Fish Oil) 1,000 mg DAILY PO 08/25/20 09:00 10/29/20 08:22 Olanzapine (ZyPREXA ZYDIS) 2.5 mg PRN Q2HR PRN PO PSYCHOSIS 08/24/20 19:45 10/25/20 15:29 Sertraline HCl (Zoloft) 25 mg DAILY PO 08/26/20 09:00 08/28/20 21:00 DC 08/28/20 08:37 Sertraline HCl (Zoloft) 50 mg DAILY PO 08/29/20 09:00 09/06/20 18:40 DC 09/04/20 08:58 Tamsulosin HCl (Flomax) 0.4 mg QHS PO 08/28/20 21:00 10/30/20 20:24 Mupirocin (Bactroban) 1 césar PRN BID PRN TP RASH 09/03/20 12:45 Diphenhydramine HCl (Benadryl) 50 mg 1X ONCE PO 09/04/20 21:00 09/04/20 21:01 DC 09/04/20 21:21 Olanzapine (ZyPREXA ZYDIS) 5 mg 1X ONCE PO 09/27/20 18:30 09/27/20 18:31 DC 09/27/20 18:30 Divalproex Sodium (Depakote Sprinkles) 125 mg 0900,1700 PO 09/28/20 17:00 10/12/20 17:08 DC 10/12/20 08:18 Furosemide (Lasix) 80 mg 1X ONCE PO 09/30/20 15:30 09/30/20 15:31 DC 09/30/20 16:00 Furosemide (Lasix) 80 mg DAILY PO 10/01/20 09:00 10/30/20 07:50 Potassium Chloride (Klor-Con) 20 meq DAILYWBKFT PO 10/01/20 08:00 10/30/20 07:49 Trazodone HCl (Desyrel) 50 mg PRN QHS PRN PO INSOMNIA 10/08/20 16:15 10/09/20 20:15 Divalproex Sodium (Depakote Sprinkles) 125 mg 0900,1300,1700,2100 PO 10/12/20 17:50 10/21/20 17:01 DC 10/21/20 12:26 Divalproex Sodium (Depakote Sprinkles) 125 mg 1300,1700 PO 10/21/20 17:00 10/25/20 17:17 DC 10/25/20 15:29 Divalproex Sodium (Depakote Sprinkles) 250 mg 0900,2100 PO 10/21/20 21:00 10/25/20 17:17 DC 10/25/20 09:09 Divalproex Sodium (Depakote Sprinkles) 250 mg QID PO 10/25/20 17:15 10/30/20 20:24 I have reviewed the current psychotropics carefully including drug interactions. Risk benefit ratio favors no change other than as noted in my dictated progress note. Diagnosis: Problems: (1) Impulse control disorder, unspecified (2) Anxiety disorder, unspecified (3) Dementia, vascular, with depression (4) Dementia, vascular, with delusions (5) Dementia in Alzheimer's disease with depression (6) Dementia in Alzheimer's disease with delusions (7) Dementia of the Alzheimer's type with early onset with behavioral dis turbance (8) Major neurocognitive disorder VERENA AGUSTIN MD Oct 30, 2020 22:02
[2020-10-31 05:57] VITALS: BP 97/66
--- NOTE | 2020-10-31 06:41 | PDOC ---
Exam Note: Fercho Note: This note is a late entry for 10/30/2020 covers elements not covered in my initial note. Subjective: The patient was seen individually in the evening of 10/30/2020 with Brittany ABREU, discussed and reviewed the chart. He slept 7 hours previous night. Overall the patient has done well throughout the day. He remains confused, wanders the hallways, pleasant, smiling. No aggression noted. I met with him in his room evening of 10/30. He remains quite confused, withdrawn but not agitated. Mental Status Exam: The patient is oriented to himself. Insight and judgment, recent and remote memory, attention and concentration, fund of knowledge is poor consistent with his diagnoses. Laboratory Data: Reviewed. Impression: Major neurocognitive disorder Alzheimer vascular with delusion, depression, behavioral disturbance. Anxiety disorder unspecified. Impulse control disorder unspecified. Plan: Continue current psychotropics. Assessment: Vital Signs/I&O: Vital Signs Date Time Temp Pulse Resp B/P (MAP) Pulse Ox O2 Delivery O2 Flow Rate FiO2 10/31/20 05:57 97.2 64 16 97/66 (76) 96 10/27/20 05:47 Room Air I & O 10/30/20 10/30/20 10/31/20 15:00 23:00 07:00 Intake Total 720 ml 600 ml Balance 720 ml 600 ml Current Medications: Meds: Current Medications Medications (Trade) Dose Ordered Sig/Ashvin Route PRN Reason Start Time Stop Time Status Last Admin Dose Admin Acetaminophen (Tylenol) 650 mg PRN Q6HRS PRN PO MILD PAIN / TEMP > 100.3'F 08/24/20 18:15 10/19/20 14:44 Multi-Ingredient Ointment (Analgesic [place]) 1 césar PRN QID PRN TP MUSCLE PAIN 08/24/20 18:15 Al Hydroxide/Mg Hydroxide (Mylanta Plus Xs) 15 ml PRN AFTMEALHC PRN PO DYSPEPSIA 08/24/20 18:15 Magnesium Hydroxide (Milk Of Magnesia) 2,400 mg PRN QHS PRN PO CONSTIPATION 08/24/20 18:15 Aspirin (Aspirin Chewable) 81 mg DAILY PO 08/25/20 09:00 10/30/20 07:49 Cetirizine HCl (ZyrTEC) 10 mg DAILY08 PO 08/25/20 08:00 7/11/21 07:49 Donepezil HCl (Aricept) 23 mg QHS PO 08/24/20 21:00 08/28/20 15:38 DC 08/27/20 20:34 Fluoxetine HCl (PROzac) 20 mg DAILY PO 08/25/20 09:00 10/30/20 07:49 Lorazepam (Ativan) 1 mg PRN Q4HRS PRN PO ANXIETY / AGITATION 08/24/20 18:45 09/04/20 16:12 DC 09/04/20 01:29 Atorvastatin Calcium (Lipitor) 40 mg QHS PO 08/24/20 21:00 10/30/20 20:24 Pantoprazole Sodium (Protonix) 40 mg DAILY08 PO 08/25/20 08:00 10/30/20 07:49 Multivitamins/ Calcium (Thera-M Plus) 1 tab DAILY PO 08/25/20 09:00 10/30/20 07:49 Mupirocin (Bactroban) 1 césar BID92 TP 08/25/20 09:00 09/03/20 12:35 DC 09/01/20 14:00 Fish Oil (Fish Oil) 1,000 mg DAILY PO 08/25/20 09:00 10/29/20 08:22 Olanzapine (ZyPREXA ZYDIS) 2.5 mg PRN Q2HR PRN PO PSYCHOSIS 08/24/20 19:45 10/25/20 15:29 Sertraline HCl (Zoloft) 25 mg DAILY PO 08/26/20 09:00 08/28/20 21:00 DC 08/28/20 08:37 Sertraline HCl (Zoloft) 50 mg DAILY PO 08/29/20 09:00 09/06/20 18:40 DC 09/04/20 08:58 Tamsulosin HCl (Flomax) 0.4 mg QHS PO 08/28/20 21:00 10/30/20 20:24 Mupirocin (Bactroban) 1 césar PRN BID PRN TP RASH 09/03/20 12:45 Diphenhydramine HCl (Benadryl) 50 mg 1X ONCE PO 09/04/20 21:00 09/04/20 21:01 DC 09/04/20 21:21 Olanzapine (ZyPREXA ZYDIS) 5 mg 1X ONCE PO 09/27/20 18:30 09/27/20 18:31 DC 09/27/20 18:30 Divalproex Sodium (Depakote Sprinkles) 125 mg 0900,1700 PO 09/28/20 17:00 10/12/20 17:08 DC 10/12/20 08:18 Furosemide (Lasix) 80 mg 1X ONCE PO 09/30/20 15:30 09/30/20 15:31 DC 09/30/20 16:00 Furosemide (Lasix) 80 mg DAILY PO 10/01/20 09:00 10/30/20 07:50 Potassium Chloride (Klor-Con) 20 meq DAILYWBKFT PO 10/01/20 08:00 10/30/20 07:49 Trazodone HCl (Desyrel) 50 mg PRN QHS PRN PO INSOMNIA 10/08/20 16:15 10/09/20 20:15 Divalproex Sodium (Depakote Sprinkles) 125 mg 0900,1300,1700,2100 PO 10/12/20 17:50 10/21/20 17:01 DC 10/21/20 12:26 Divalproex Sodium (Depakote Sprinkles) 125 mg 1300,1700 PO 10/21/20 17:00 10/25/20 17:17 DC 10/25/20 15:29 Divalproex Sodium (Depakote Sprinkles) 250 mg 0900,2100 PO 10/21/20 21:00 10/25/20 17:17 DC 10/25/20 09:09 Divalproex Sodium (Depakote Sprinkles) 250 mg QID PO 10/25/20 17:15 10/30/20 20:24 I have reviewed the current psychotropics carefully including drug interactions. Risk benefit ratio favors no change other than as noted in my dictated progress note. Diagnosis: Problems: (1) Impulse control disorder, unspecified (2) Anxiety disorder, unspecified (3) Dementia, vascular, with depression (4) Dementia, vascular, with delusions (5) Dementia in Alzheimer's disease with depression (6) Dementia in Alzheimer's disease with delusions (7) Dementia of the Alzheimer's type with early onset with behavioral disturbance (8) Major neurocognitive disorder VERENA AGUSTIN MD Oct 31, 2020 06:41
[2020-10-31] MEDS: POTASSIUM CHLORIDE 20 MEQ TABLET.ER. PO SCH (08:00)
[2020-10-31] MEDS: PANTOPRAZOLE 40 MG TABLET. PO SCH (08:49)
[2020-10-31] MEDS: ASPIRIN CHEWABLE 81 MG TABLET. PO SCH (08:50)
[2020-10-31] MEDS: CETIRIZINE HCL 10 MG TABLET PO SCH (08:50)
[2020-10-31] MEDS: FUROSEMIDE 40 MG TABLET PO SCH (08:50)
[2020-10-31] MEDS: MULTIVITAMIN with MINERAL TABLET. PO SCH (08:50)
[2020-10-31] MEDS: DIVALPROEX 125 MG CAP.SPRINK PO SCH ×4 (08:50→20:14)
[2020-10-31] MEDS: OMEGA-3 FATTY ACIDS/FISH OIL 1,000 MG CAPSULE. PO SCH (08:51)
[2020-10-31 15:40] VITALS: BP 103/66
[2020-10-31] MEDS: ATORVASTATIN CALCIUM 20 MG TABLET PO SCH (20:14)
[2020-10-31] MEDS: TAMSULOSIN 0.4 MG CAP.ER.24H. PO SCH (20:14)
--- NOTE | 2020-10-31 22:01 | PDOC ---
Exam Note: Fercho Note: Please also refer to the separate dictated note~for this date of service dictated separately.~Patient seen individually. Discussed the patient with Nursing staff reviewed the chart.~Reviewed interim history and current functioning. Reviewed vital signs,~Labs/ Radiology~and current medications noted below. Continue current treatment with the changes noted in the dictated addendum note Assessment: Vital Signs/I&O: Vital Signs Date Time Temp Pulse Resp B/P (MAP) Pulse Ox O2 Delivery O2 Flow Rate FiO2 10/31/20 15:40 97.9 77 16 103/66 (78) 95 10/27/20 05:47 Room Air I & O 10/30/20 10/30/20 10/31/20 15:00 23:00 07:00 Intake Total 720 ml 600 ml Balance 720 ml 600 ml Current Medications: Meds: Current Medications Medications (Trade) Dose Ordered Sig/Ashvin Route PRN Reason Start Time Stop Time Status Last Admin Dose Admin Acetaminophen (Tylenol) 650 mg PRN Q6HRS PRN PO MILD PAIN / TEMP > 100.3'F 08/24/20 18:15 10/19/20 14:44 Multi-Ingredient Ointment (Analgesic [place]) 1 césar PRN QID PRN TP MUSCLE PAIN 08/24/20 18:15 Al Hydroxide/Mg Hydroxide (Mylanta Plus Xs) 15 ml PRN AFTMEALHC PRN PO DYSPEPSIA 08/24/20 18:15 Magnesium Hydroxide (Milk Of Magnesia) 2,400 mg PRN QHS PRN PO CONSTIPATION 08/24/20 18:15 Aspirin (Aspirin Chewable) 81 mg DAILY PO 08/25/20 09:00 10/31/20 08:50 Cetirizine HCl (ZyrTEC) 10 mg DAILY08 PO 08/25/20 08:00 10/31/20 08:50 Donepezil HCl (Aricept) 23 mg QHS PO 08/24/20 21:00 08/28/20 15:38 DC 08/27/20 20:34 Fluoxetine HCl (PROzac) 20 mg DAILY PO 08/25/20 09:00 10/31/20 08:50 Lorazepam (Ativan) 1 mg PRN Q4HRS PRN PO ANXIETY / AGITATION 08/24/20 18:45 09/04/20 16:12 DC 09/04/20 01:29 Atorvastatin Calcium (Lipitor) 40 mg QHS PO 08/24/20 21:00 10/31/20 20:14 Pantoprazole Sodium (Protonix) 40 mg DAILY08 PO 08/25/20 08:00 10/31/20 08:49 Multivitamins/ Calcium (Thera-M Plus) 1 tab DAILY PO 08/25/20 09:00 10/31/20 08:50 Mupirocin (Bactroban) 1 césar BID92 TP 08/25/20 09:00 09/03/20 12:35 DC 09/01/20 14:00 Fish Oil (Fish Oil) 1,000 mg DAILY PO 08/25/20 09:00 10/29/20 08:22 Olanzapine (ZyPREXA ZYDIS) 2.5 mg PRN Q2HR PRN PO PSYCHOSIS 08/24/20 19:45 10/25/20 15:29 Sertraline HCl (Zoloft) 25 mg DAILY PO 08/26/20 09:00 08/28/20 21:00 DC 08/28/20 08:37 Sertraline HCl (Zoloft) 50 mg DAILY PO 08/29/20 09:00 09/06/20 18:40 DC 09/04/20 08:58 Tamsulosin HCl (Flomax) 0.4 mg QHS PO 08/28/20 21:00 10/31/20 20:14 Mupirocin (Bactroban) 1 césar PRN BID PRN TP RASH 09/03/20 12:45 Diphenhydramine HCl (Benadryl) 50 mg 1X ONCE PO 09/04/20 21:00 09/04/20 21:01 DC 09/04/20 21:21 Olanzapine (ZyPREXA ZYDIS) 5 mg 1X ONCE PO 09/27/20 18:30 09/27/20 18:31 DC 09/27/20 18:30 Divalproex Sodium (Depakote Sprinkles) 125 mg 0900,1700 PO 09/28/20 17:00 10/12/20 17:08 DC 10/12/20 08:18 Furosemide (Lasix) 80 mg 1X ONCE PO 09/30/20 15:30 09/30/20 15:31 DC 09/30/20 16:00 Furosemide (Lasix) 80 mg DAILY PO 10/01/20 09:00 10/31/20 08:50 Potassium Chloride (Klor-Con) 20 meq DAILYWBKFT PO 10/01/20 08:00 10/31/20 08:00 Trazodone HCl (Desyrel) 50 mg PRN QHS PRN PO INSOMNIA 10/08/20 16:15 10/09/20 20:15 Divalproex Sodium (Depakote Sprinkles) 125 mg 0900,1300,1700,2100 PO 10/12/20 17:50 10/21/20 17:01 DC 10/21/20 12:26 Divalproex Sodium (Depakote Sprinkles) 125 mg 1300,1700 PO 10/21/20 17:00 10/25/20 17:17 DC 10/25/20 15:29 Divalproex Sodium (Depakote Sprinkles) 250 mg 0900,2100 PO 10/21/20 21:00 10/25/20 17:17 DC 10/25/20 09:09 Divalproex Sodium (Depakote Sprinkles) 250 mg QID PO 10/25/20 17:15 10/31/20 20:14 I have reviewed the current psychotropics carefully including drug interactions. Risk benefit ratio favors no change other than as noted in my dictated progress note. Diagnosis: Problems: (1) Impulse control disorder, unspecified (2) Anxiety disorder, unspecified (3) Dementia, vascular, with depression (4) Dementia, vascular, with delusions (5) Dementia in Alzheimer's disease with depression (6) Dementia in Alzheimer's disease with delusions (7) Dementia of the Alzheimer's type with early onset with behavioral dis turbance (8) Major neurocognitive disorder VERENA AGUSTIN MD Oct 31, 2020 22:01
--- NOTE | 2020-11-01 07:00 | PDOC ---
Exam Note: Fercho Note: This note is a late entry for 10/31/2020 covers elements not covered in my initial note. Subjective: The patient was seen individually in the evening of 10/31/2020 with Brittany ABREU, discussed and reviewed the chart. He slept 6-3/4 hours previous night. I met with him in his room. He remains confused, pleasant, smiling. He walked out in the hallway in his diapers after our visit and was quite oblivious of this but this understandable given his level of confusion. He has not been aggressive. Mental Status Exam: The patient is oriented to himself. Insight and judgment, recent and remote memory, attention and concentration, fund of knowledge is poor consistent with his diagnoses. Laboratory Data: Reviewed. Impression: Major neurocognitive disorder Alzheimer vascular with delusion, depression, behavioral disturbance. Anxiety disorder unspecified. Impulse control disorder unspecified. Plan: Continue current psychotropics. Assessment: Vital Signs/I&O: Vital Signs Date Time Temp Pulse Resp B/P (MAP) Pulse Ox O2 Delivery O2 Flow Rate FiO2 10/31/20 15:40 97.9 77 16 103/66 (78) 95 10/27/20 05:47 Room Air I & O 10/31/20 10/31/20 11/01/20 15:00 23:00 07:00 Intake Total 600 ml 480 ml Balance 600 ml 480 ml Current Medications: Meds: Current Medications Medications (Trade) Dose Ordered Sig/Ashvin Route PRN Reason Start Time Stop Time Status Last Admin Dose Admin Acetaminophen (Tylenol) 650 mg PRN Q6HRS PRN PO MILD PAIN / TEMP > 100.3'F 08/24/20 18:15 10/19/20 14:44 Multi-Ingredient Ointment (Analgesic [place]) 1 césar PRN QID PRN TP MUSCLE PAIN 08/24/20 18:15 Al Hydroxide/Mg Hydroxide (Mylanta Plus Xs) 15 ml PRN AFTMEALHC PRN PO DYSPEPSIA 08/24/20 18:15 Magnesium Hydroxide (Milk Of Magnesia) 2,400 mg PRN QHS PRN PO CONSTIPATION 08/24/20 18:15 Aspirin (Aspirin Chewable) 81 mg DAILY PO 08/25/20 09:00 10/31/20 08:50 Cetirizine HCl (ZyrTEC) 10 mg DAILY08 PO 08/25/20 08:00 10/31/20 08:50 Donepezil HCl (Aricept) 23 mg QHS PO 08/24/20 21:00 08/28/20 15:38 DC 08/27/20 20:34 Fluoxetine HCl (PROzac) 20 mg DAILY PO 08/25/20 09:00 10/31/20 08:50 Lorazepam (Ativan) 1 mg PRN Q4HRS PRN PO ANXIETY / AGITATION 08/24/20 18:45 09/04/20 16:12 DC 09/04/20 01:29 Atorvastatin Calcium (Lipitor) 40 mg QHS PO 08/24/20 21:00 10/31/20 20:14 Pantoprazole Sodium (Protonix) 40 mg DAILY08 PO 08/25/20 08:00 10/31/20 08:49 Multivitamins/ Calcium (Thera-M Plus) 1 tab DAILY PO 08/25/20 09:00 10/31/20 08:50 Mupirocin (Bactroban) 1 césar BID92 TP 08/25/20 09:00 09/03/20 12:35 DC 09/01/20 14:00 Fish Oil (Fish Oil) 1,000 mg DAILY PO 08/25/20 09:00 10/29/20 08:22 Olanzapine (ZyPREXA ZYDIS) 2.5 mg PRN Q2HR PRN PO PSYCHOSIS 08/24/20 19:45 10/25/20 15:29 Sertraline HCl (Zoloft) 25 mg DAILY PO 08/26/20 09:00 08/28/20 21:00 DC 08/28/20 08:37 Sertraline HCl (Zoloft) 50 mg DAILY PO 08/29/20 09:00 09/06/20 18:40 DC 09/04/20 08:58 Tamsulosin HCl (Flomax) 0.4 mg QHS PO 08/28/20 21:00 10/31/20 20:14 Mupirocin (Bactroban) 1 césar PRN BID PRN TP RASH 09/03/20 12:45 Diphenhydramine HCl (Benadryl) 50 mg 1X ONCE PO 09/04/20 21:00 09/04/20 21:01 DC 09/04/20 21:21 Olanzapine (ZyPREXA ZYDIS) 5 mg 1X ONCE PO 09/27/20 18:30 09/27/20 18:31 DC 09/27/20 18:30 Divalproex Sodium (Depakote Sprinkles) 125 mg 0900,1700 PO 09/28/20 17:00 10/12/20 17:08 DC 10/12/20 08:18 Furosemide (Lasix) 80 mg 1X ONCE PO 09/30/20 15:30 09/30/20 15:31 DC 09/30/20 16:00 Furosemide (Lasix) 80 mg DAILY PO 10/01/20 09:00 10/31/20 08:50 Potassium Chloride (Klor-Con) 20 meq DAILYWBKFT PO 10/01/20 08:00 10/31/20 08:00 Trazodone HCl (Desyrel) 50 mg PRN QHS PRN PO INSOMNIA 10/08/20 16:15 10/09/20 20:15 Divalproex Sodium (Depakote Sprinkles) 125 mg 0900,1300,1700,2100 PO 10/12/20 17:50 10/21/20 17:01 DC 10/21/20 12:26 Divalproex Sodium (Depakote Sprinkles) 125 mg 1300,1700 PO 10/21/20 17:00 10/25/20 17:17 DC 10/25/20 15:29 Divalproex Sodium (Depakote Sprinkles) 250 mg 0900,2100 PO 10/21/20 21:00 10/25/20 17:17 DC 10/25/20 09:09 Divalproex Sodium (Depakote Sprinkles) 250 mg QID PO 10/25/20 17:15 10/31/20 20:14 I have reviewed the current psychotropics carefully including drug interactions. Risk benefit ratio favors no change other than as noted in my dictated progress note. Diagnosis: Problems: (1) Impulse control disorder, unspecified (2) Anxiety disorder, unspecified (3) Dementia, vascular, with depression (4) Dementia, vascular, with delusions (5) Dementia in Alzheimer's disease with depression (6) Dementia in Alzheimer's disease with delusions (7) Dementia of the Alzheimer's type with early onset with behavioral disturbance (8) Major neurocognitive disorder VERENA AGUSTIN MD Nov 01, 2020 07:00
[2020-11-01] MEDS: POTASSIUM CHLORIDE 20 MEQ TABLET.ER. PO SCH (08:00)
[2020-11-01] MEDS: ASPIRIN CHEWABLE 81 MG TABLET. PO SCH (08:14)
[2020-11-01] MEDS: PANTOPRAZOLE 40 MG TABLET. PO SCH (08:15)
[2020-11-01] MEDS: CETIRIZINE HCL 10 MG TABLET PO SCH (08:15)
[2020-11-01] MEDS: MULTIVITAMIN with MINERAL TABLET. PO SCH (08:15)
[2020-11-01] MEDS: FUROSEMIDE 40 MG TABLET PO SCH (08:15)
[2020-11-01] MEDS: DIVALPROEX 125 MG CAP.SPRINK PO SCH ×4 (08:15→20:19)
[2020-11-01] MEDS: OMEGA-3 FATTY ACIDS/FISH OIL 1,000 MG CAPSULE. PO SCH (08:15)
[2020-11-01 09:08] VITALS: BP 111/64
[2020-11-01 16:00] VITALS: BP 105/65
[2020-11-01] MEDS: ACETAMINOPHEN 325 MG TABLET PO PRN (16:33)
[2020-11-01] MEDS: TAMSULOSIN 0.4 MG CAP.ER.24H. PO SCH (20:20)
[2020-11-01] MEDS: ATORVASTATIN CALCIUM 20 MG TABLET PO SCH (20:20)
--- NOTE | 2020-11-01 21:59 | PDOC ---
Exam Note: Fercho Note: Please also refer to the separate dictated note~for this date of service dictated separately.~Patient seen individually. Discussed the patient with Nursing staff reviewed the chart.~Reviewed interim history and current functioning. Reviewed vital signs,~Labs/ Radiology~and current medications noted below. Continue current treatment with the changes noted in the dictated addendum note Assessment: Vital Signs/I&O: Vital Signs Date Time Temp Pulse Resp B/P (MAP) Pulse Ox O2 Delivery O2 Flow Rate FiO2 11/01/20 16:00 97.6 88 18 105/65 (78) 94 10/27/20 05:47 Room Air I & O 10/31/20 10/31/20 11/01/20 15:00 23:00 07:00 Intake Total 600 ml 480 ml Balance 600 ml 480 ml Current Medications: Meds: Current Medications Medications (Trade) Dose Ordered Sig/Ashvin Route PRN Reason Start Time Stop Time Status Last Admin Dose Admin Acetaminophen (Tylenol) 650 mg PRN Q6HRS PRN PO MILD PAIN / TEMP > 100.3'F 08/24/20 18:15 11/01/20 16:33 Multi-Ingredient Ointment (Analgesic [place]) 1 césar PRN QID PRN TP MUSCLE PAIN 08/24/20 18:15 Al Hydroxide/Mg Hydroxide (Mylanta Plus Xs) 15 ml PRN AFTMEALHC PRN PO DYSPEPSIA 08/24/20 18:15 Magnesium Hydroxide (Milk Of Magnesia) 2,400 mg PRN QHS PRN PO CONSTIPATION 08/24/20 18:15 Aspirin (Aspirin Chewable) 81 mg DAILY PO 08/25/20 09:00 11/01/20 08:14 Cetirizine HCl (ZyrTEC) 10 mg DAILY08 PO 08/25/20 08:00 11/01/20 08:15 Donepezil HCl (Aricept) 23 mg QHS PO 08/24/20 21:00 08/28/20 15:38 DC 08/27/20 20:34 Fluoxetine HCl (PROzac) 20 mg DAILY PO 08/25/20 09:00 11/01/20 08:15 Lorazepam (Ativan) 1 mg PRN Q4HRS PRN PO ANXIETY / AGITATION 08/24/20 18:45 09/04/20 16:12 DC 09/04/20 01:29 Atorvastatin Calcium (Lipitor) 40 mg QHS PO 08/24/20 21:00 11/01/20 20:20 Pantoprazole Sodium (Protonix) 40 mg DAILY08 PO 08/25/20 08:00 11/01/20 08:15 Multivitamins/ Calcium (Thera-M Plus) 1 tab DAILY PO 08/25/20 09:00 11/01/20 08:15 Mupirocin (Bactroban) 1 césar BID92 TP 08/25/20 09:00 09/03/20 12:35 DC 09/01/20 14:00 Fish Oil (Fish Oil) 1,000 mg DAILY PO 08/25/20 09:00 10/29/20 08:22 Olanzapine (ZyPREXA ZYDIS) 2.5 mg PRN Q2HR PRN PO PSYCHOSIS 08/24/20 19:45 10/25/20 15:29 Sertraline HCl (Zoloft) 25 mg DAILY PO 08/26/20 09:00 08/28/20 21:00 DC 08/28/20 08:37 Sertraline HCl (Zoloft) 50 mg DAILY PO 08/29/20 09:00 09/06/20 18:40 DC 09/04/20 08:58 Tamsulosin HCl (Flomax) 0.4 mg QHS PO 08/28/20 21:00 11/01/20 20:20 Mupirocin (Bactroban) 1 césar PRN BID PRN TP RASH 09/03/20 12:45 Diphenhydramine HCl (Benadryl) 50 mg 1X ONCE PO 09/04/20 21:00 09/04/20 21:01 DC 09/04/20 21:21 Olanzapine (ZyPREXA ZYDIS) 5 mg 1X ONCE PO 09/27/20 18:30 09/27/20 18:31 DC 09/27/20 18:30 Divalproex Sodium (Depakote Sprinkles) 125 mg 0900,1700 PO 09/28/20 17:00 10/12/20 17:08 DC 10/12/20 08:18 Furosemide (Lasix) 80 mg 1X ONCE PO 09/30/20 15:30 09/30/20 15:31 DC 09/30/20 16:00 Furosemide (Lasix) 80 mg DAILY PO 10/01/20 09:00 11/01/20 08:15 Potassium Chloride (Klor-Con) 20 meq DAILYWBKFT PO 10/01/20 08:00 11/01/20 08:00 Trazodone HCl (Desyrel) 50 mg PRN QHS PRN PO INSOMNIA 10/08/20 16:15 10/09/20 20:15 Divalproex Sodium (Depakote Sprinkles) 125 mg 0900,1300,1700,2100 PO 10/12/20 17:50 10/21/20 17:01 DC 10/21/20 12:26 Divalproex Sodium (Depakote Sprinkles) 125 mg 1300,1700 PO 10/21/20 17:00 10/25/20 17:17 DC 10/25/20 15:29 Divalproex Sodium (Depakote Sprinkles) 250 mg 0900,2100 PO 10/21/20 21:00 10/25/20 17:17 DC 10/25/20 09:09 Divalproex Sodium (Depakote Sprinkles) 250 mg QID PO 10/25/20 17:15 11/01/20 20:19 I have reviewed the current psychotropics carefully including drug interactions. Risk benefit ratio favors no change other than as noted in my dictated progress note. Diagnosis: Problems: (1) Impulse control disorder, unspecified (2) Anxiety disorder, unspecified (3) Dementia, vascular, with depression (4) Dementia, vascular, with delusions (5) Dementia in Alzheimer's disease with depression (6) Dementia in Alzheimer's disease with delusions (7) Dementia of the Alzheimer's type with early onset with behavioral dis turbance (8) Major neurocognitive disorder VERENA AGUSTIN MD Nov 01, 2020 21:59
[2020-11-02 06:12] VITALS: BP 120/68
--- NOTE | 2020-11-02 06:51 | PDOC ---
Exam Note: Fercho Note: This note is a late entry for 11/01/2020 covers elements not covered in my initial note. Subjective: The patient was seen individually in the evening of 11/01/2020 with Brittany ABREU, discussed and reviewed the chart. He slept 7 hours previous night. Overall the patient remains confused, but not agitated or aggressive. I met with him in his room around snack time late in the evening and with encouragement he was able to follow along with the nursing staff to the dayroom for the snacks. He has not been aggressive or disruptive. Mental Status Exam: The patient is oriented to himself. Insight and judgment, recent and remote memory, attention and concentration, fund of knowledge is poor consistent with his diagnoses. Laboratory Data: Reviewed. Impression: Major neurocognitive disorder Alzheimer vascular with delusion, depression, behavioral disturbance. Anxiety disorder unspecified. Impulse control disorder unspecified. Plan: Continue current psychotropics. Assessment: Vital Signs/I&O: Vital Signs Date Time Temp Pulse Resp B/P (MAP) Pulse Ox O2 Delivery O2 Flow Rate FiO2 11/02/20 06:12 98.1 63 20 120/68 (85) 99 I & O 11/01/20 11/01/20 11/02/20 15:00 23:00 07:00 Intake Total 720 ml 600 ml Balance 720 ml 600 ml Current Medications: Meds: Current Medications Medications (Trade) Dose Ordered Sig/Ashvin Route PRN Reason Start Time Stop Time Status Last Admin Dose Admin Acetaminophen (Tylenol) 650 mg PRN Q6HRS PRN PO MILD PAIN / TEMP > 100.3'F 08/24/20 18:15 11/01/20 16:33 Multi-Ingredient Ointment (Analgesic [place]) 1 césar PRN QID PRN TP MUSCLE PAIN 08/24/20 18:15 Al Hydroxide/Mg Hydroxide (Mylanta Plus Xs) 15 ml PRN AFTMEALHC PRN PO DYSPEPSIA 08/24/20 18:15 Magnesium Hydroxide (Milk Of Magnesia) 2,400 mg PRN QHS PRN PO CONSTIPATION 08/24/20 18:15 Aspirin (Aspirin Chewable) 81 mg DAILY PO 08/25/20 09:00 11/01/20 08:14 Cetirizine HCl (ZyrTEC) 10 mg DAILY08 PO 08/25/20 08:00 11/01/20 08:15 Donepezil HCl (Aricept) 23 mg QHS PO 08/24/20 21:00 08/28/20 15:38 DC 08/27/20 20:34 Fluoxetine HCl (PROzac) 20 mg DAILY PO 08/25/20 09:00 11/01/20 08:15 Lorazepam (Ativan) 1 mg PRN Q4HRS PRN PO ANXIETY / AGITATION 08/24/20 18:45 09/04/20 16:12 DC 09/04/20 01:29 Atorvastatin Calcium (Lipitor) 40 mg QHS PO 08/24/20 21:00 11/01/20 20:20 Pantoprazole Sodium (Protonix) 40 mg DAILY08 PO 08/25/20 08:00 11/01/20 08:15 Multivitamins/ Calcium (Thera-M Plus) 1 tab DAILY PO 08/25/20 09:00 11/01/20 08:15 Mupirocin (Bactroban) 1 césar BID92 TP 08/25/20 09:00 09/03/20 12:35 DC 09/01/20 14:00 Fish Oil (Fish Oil) 1,000 mg DAILY PO 08/25/20 09:00 10/29/20 08:22 Olanzapine (ZyPREXA ZYDIS) 2.5 mg PRN Q2HR PRN PO PSYCHOSIS 08/24/20 19:45 10/25/20 15:29 Sertraline HCl (Zoloft) 25 mg DAILY PO 08/26/20 09:00 08/28/20 21:00 DC 08/28/20 08:37 Sertraline HCl (Zoloft) 50 mg DAILY PO 08/29/20 09:00 09/06/20 18:40 DC 09/04/20 08:58 Tamsulosin HCl (Flomax) 0.4 mg QHS PO 08/28/20 21:00 11/01/20 20:20 Mupirocin (Bactroban) 1 césar PRN BID PRN TP RASH 09/03/20 12:45 Diphenhydramine HCl (Benadryl) 50 mg 1X ONCE PO 09/04/20 21:00 09/04/20 21:01 DC 09/04/20 21:21 Olanzapine (ZyPREXA ZYDIS) 5 mg 1X ONCE PO 09/27/20 18:30 09/27/20 18:31 DC 09/27/20 18:30 Divalproex Sodium (Depakote Sprinkles) 125 mg 0900,1700 PO 09/28/20 17:00 10/12/20 17:08 DC 10/12/20 08:18 Furosemide (Lasix) 80 mg 1X ONCE PO 09/30/20 15:30 09/30/20 15:31 DC 09/30/20 16:00 Furosemide (Lasix) 80 mg DAILY PO 10/01/20 09:00 11/01/20 08:15 Potassium Chloride (Klor-Con) 20 meq DAILYWBKFT PO 10/01/20 08:00 11/01/20 08:00 Trazodone HCl (Desyrel) 50 mg PRN QHS PRN PO INSOMNIA 10/08/20 16:15 10/09/20 20:15 Divalproex Sodium (Depakote Sprinkles) 125 mg 0900,1300,1700,2100 PO 10/12/20 17:50 10/21/20 17:01 DC 10/21/20 12:26 Divalproex Sodium (Depakote Sprinkles) 125 mg 1300,1700 PO 10/21/20 17:00 10/25/20 17:17 DC 10/25/20 15:29 Divalproex Sodium (Depakote Sprinkles) 250 mg 0900,2100 PO 10/21/20 21:00 10/25/20 17:17 DC 10/25/20 09:09 Divalproex Sodium (Depakote Sprinkles) 250 mg QID PO 10/25/20 17:15 11/01/20 20:19 I have reviewed the current psychotropics carefully including drug interactions. Risk benefit ratio favors no change other than as noted in my dictated progress note. Diagnosis: Problems: (1) Impulse control disorder, unspecified (2) Anxiety disorder, unspecified (3) Dementia, vascular, with depression (4) Dementia, vascular, with delusions (5) Dementia in Alzheimer's disease with depression (6) Dementia in Alzheimer's disease with delusions (7) Dementia of the Alzheimer's type with early onset with behavioral disturbance (8) Major neurocognitive disorder VERENA AGUSTIN MD Nov 02, 2020 06:51
[2020-11-02] MEDS: DIVALPROEX 125 MG CAP.SPRINK PO SCH ×4 (08:13→19:42)
[2020-11-02] MEDS: CETIRIZINE HCL 10 MG TABLET PO SCH (08:13)
[2020-11-02] MEDS: PANTOPRAZOLE 40 MG TABLET. PO SCH (08:13)
[2020-11-02] MEDS: FUROSEMIDE 40 MG TABLET PO SCH (08:13)
[2020-11-02] MEDS: ASPIRIN CHEWABLE 81 MG TABLET. PO SCH (08:13)
[2020-11-02] MEDS: MULTIVITAMIN with MINERAL TABLET. PO SCH (08:13)
[2020-11-02] MEDS: POTASSIUM CHLORIDE 20 MEQ TABLET.ER. PO SCH (08:14)
[2020-11-02] MEDS: OMEGA-3 FATTY ACIDS/FISH OIL 1,000 MG CAPSULE. PO SCH (09:00)
[2020-11-02 15:56] VITALS: BP 116/76
[2020-11-02] MEDS: ATORVASTATIN CALCIUM 20 MG TABLET PO SCH (19:42)
[2020-11-02] MEDS: TAMSULOSIN 0.4 MG CAP.ER.24H. PO SCH (19:42)
--- NOTE | 2020-11-02 22:09 | PDOC ---
Exam Note: Fercho Note: Please also refer to the separate dictated note~for this date of service dictated separately.~Patient seen individually. Discussed the patient with Nursing staff reviewed the chart.~Reviewed interim history and current functioning. Reviewed vital signs,~Labs/ Radiology~and current medications noted below. Continue current treatment with the changes noted in the dictated addendum note Assessment: Vital Signs/I&O: Vital Signs Date Time Temp Pulse Resp B/P (MAP) Pulse Ox O2 Delivery O2 Flow Rate FiO2 11/02/20 15:56 97.5 78 16 116/76 (89) 95 I & O 11/01/20 11/01/20 11/02/20 15:00 23:00 07:00 Intake Total 720 ml 600 ml Balance 720 ml 600 ml Current Medications: Meds: Current Medications Medications (Trade) Dose Ordered Sig/Ashvin Route PRN Reason Start Time Stop Time Status Last Admin Dose Admin Acetaminophen (Tylenol) 650 mg PRN Q6HRS PRN PO MILD PAIN / TEMP > 100.3'F 08/24/20 18:15 11/01/20 16:33 Multi-Ingredient Ointment (Analgesic [place]) 1 césar PRN QID PRN TP MUSCLE PAIN 08/24/20 18:15 Al Hydroxide/Mg Hydroxide (Mylanta Plus Xs) 15 ml PRN AFTMEALHC PRN PO DYSPEPSIA 08/24/20 18:15 Magnesium Hydroxide (Milk Of Magnesia) 2,400 mg PRN QHS PRN PO CONSTIPATION 08/24/20 18:15 Aspirin (Aspirin Chewable) 81 mg DAILY PO 08/25/20 09:00 11/02/20 08:13 Cetirizine HCl (ZyrTEC) 10 mg DAILY08 PO 08/25/20 08:00 11/02/20 08:13 Donepezil HCl (Aricept) 23 mg QHS PO 08/24/20 21:00 08/28/20 15:38 DC 08/27/20 20:34 Fluoxetine HCl (PROzac) 20 mg DAILY PO 08/25/20 09:00 11/02/20 08:13 Lorazepam (Ativan) 1 mg PRN Q4HRS PRN PO ANXIETY / AGITATION 08/24/20 18:45 09/04/20 16:12 DC 09/04/20 01:29 Atorvastatin Calcium (Lipitor) 40 mg QHS PO 08/24/20 21:00 11/02/20 19:42 Pantoprazole Sodium (Protonix) 40 mg DAILY08 PO 08/25/20 08:00 11/02/20 08:13 Multivitamins/ Calcium (Thera-M Plus) 1 tab DAILY PO 08/25/20 09:00 11/02/20 08:13 Mupirocin (Bactroban) 1 césar BID92 TP 08/25/20 09:00 09/03/20 12:35 DC 09/01/20 14:00 Fish Oil (Fish Oil) 1,000 mg DAILY PO 08/25/20 09:00 10/29/20 08:22 Olanzapine (ZyPREXA ZYDIS) 2.5 mg PRN Q2HR PRN PO PSYCHOSIS 08/24/20 19:45 10/25/20 15:29 Sertraline HCl (Zoloft) 25 mg DAILY PO 08/26/20 09:00 08/28/20 21:00 DC 08/28/20 08:37 Sertraline HCl (Zoloft) 50 mg DAILY PO 08/29/20 09:00 09/06/20 18:40 DC 09/04/20 08:58 Tamsulosin HCl (Flomax) 0.4 mg QHS PO 08/28/20 21:00 11/02/20 19:42 Mupirocin (Bactroban) 1 césar PRN BID PRN TP RASH 09/03/20 12:45 Diphenhydramine HCl (Benadryl) 50 mg 1X ONCE PO 09/04/20 21:00 09/04/20 21:01 DC 09/04/20 21:21 Olanzapine (ZyPREXA ZYDIS) 5 mg 1X ONCE PO 09/27/20 18:30 09/27/20 18:31 DC 09/27/20 18:30 Divalproex Sodium (Depakote Sprinkles) 125 mg 0900,1700 PO 09/28/20 17:00 10/12/20 17:08 DC 10/12/20 08:18 Furosemide (Lasix) 80 mg 1X ONCE PO 09/30/20 15:30 09/30/20 15:31 DC 09/30/20 16:00 Furosemide (Lasix) 80 mg DAILY PO 10/01/20 09:00 11/02/20 08:13 Potassium Chloride (Klor-Con) 20 meq DAILYWBKFT PO 10/01/20 08:00 11/02/20 08:14 Trazodone HCl (Desyrel) 50 mg PRN QHS PRN PO INSOMNIA 10/08/20 16:15 10/09/20 20:15 Divalproex Sodium (Depakote Sprinkles) 125 mg 0900,1300,1700,2100 PO 10/12/20 17:50 10/21/20 17:01 DC 10/21/20 12:26 Divalproex Sodium (Depakote Sprinkles) 125 mg 1300,1700 PO 10/21/20 17:00 10/25/20 17:17 DC 10/25/20 15:29 Divalproex Sodium (Depakote Sprinkles) 250 mg 0900,2100 PO 10/21/20 21:00 10/25/20 17:17 DC 10/25/20 09:09 Divalproex Sodium (Depakote Sprinkles) 250 mg QID PO 10/25/20 17:15 11/02/20 19:42 I have reviewed the current psychotropics carefully including drug interactions. Risk benefit ratio favors no change other than as noted in my dictated progress note. Diagnosis: Problems: (1) Impulse control disorder, unspecified (2) Anxiety disorder, unspecified (3) Dementia, vascular, with depression (4) Dementia, vascular, with delusions (5) Dementia in Alzheimer's disease with depression (6) Dementia in Alzheimer's disease with delusions (7) Dementia of the Alzheimer's type with early onset with behavioral disturbance (8) Major neurocognitive disorder VERENA AGUSTIN MD Nov 02, 2020 22:09
[2020-11-03 06:11] VITALS: BP 106/65
--- NOTE | 2020-11-03 08:03 | PDOC ---
Exam Note: Fercho Note: This note is a late entry for 11/02/2020 covers elements not covered in my initial note. Subjective: The patient was seen individually in the evening of 11/02/2020 with Spring ABREU, discussed and reviewed the chart. He slept 5-3/4 hours previous night. I met with him in the evening. The patient was pleasant, smiling, walking in the corridor out in the dayroom after he had a snack but was quite oblivious of this as I questioned him. Review of Systems: No CV, , pulmonary, eye, ENT system symptoms on review. Mental Status Exam: The patient is oriented to himself. Insight and judgment, recent and remote memory, attention and concentration, fund of knowledge is poor consistent with his diagnoses. Laboratory Data: Reviewed. Impression: Major neurocognitive disorder Alzheimer vascular with delusion, depression, behavioral disturbance. Anxiety disorder unspecified. Impulse control disorder unspecified. Plan: No change from initial note. Assessment: Vital Signs/I&O: Vital Signs Date Time Temp Pulse Resp B/P (MAP) Pulse Ox O2 Delivery O2 Flow Rate FiO2 11/03/20 06:11 97.5 68 18 106/65 (79) 99 Room Air I & O 11/02/20 11/02/20 11/03/20 15:00 23:00 07:00 Intake Total 600 ml 720 ml Balance 600 ml 720 ml Current Medications: Meds: Current Medications Medications (Trade) Dose Ordered Sig/Ashvin Route PRN Reason Start Time Stop Time Status Last Admin Dose Admin Acetaminophen (Tylenol) 650 mg PRN Q6HRS PRN PO MILD PAIN / TEMP > 100.3'F 08/24/20 18:15 11/01/20 16:33 Multi-Ingredient Ointment (Analgesic [place]) 1 césar PRN QID PRN TP MUSCLE PAIN 08/24/20 18:15 Al Hydroxide/Mg Hydroxide (Mylanta Plus Xs) 15 ml PRN AFTMEALHC PRN PO DYSPEPSIA 08/24/20 18:15 Magnesium Hydroxide (Milk Of Magnesia) 2,400 mg PRN QHS PRN PO CONSTIPATION 08/24/20 18:15 Aspirin (Aspirin Chewable) 81 mg DAILY PO 08/25/20 09:00 11/02/20 08:13 Cetirizine HCl (ZyrTEC) 10 mg DAILY08 PO 08/25/20 08:00 11/02/20 08:13 Donepezil HCl (Aricept) 23 mg QHS PO 08/24/20 21:00 08/28/20 15:38 DC 08/27/20 20:34 Fluoxetine HCl (PROzac) 20 mg DAILY PO 08/25/20 09:00 11/02/20 08:13 Lorazepam (Ativan) 1 mg PRN Q4HRS PRN PO ANXIETY / AGITATION 08/24/20 18:45 09/04/20 16:12 DC 09/04/20 01:29 Atorvastatin Calcium (Lipitor) 40 mg QHS PO 08/24/20 21:00 11/02/20 19:42 Pantoprazole Sodium (Protonix) 40 mg DAILY08 PO 08/25/20 08:00 11/02/20 08:13 Multivitamins/ Calcium (Thera-M Plus) 1 tab DAILY PO 08/25/20 09:00 11/02/20 08:13 Mupirocin (Bactroban) 1 césar BID92 TP 08/25/20 09:00 09/03/20 12:35 DC 09/01/20 14:00 Fish Oil (Fish Oil) 1,000 mg DAILY PO 08/25/20 09:00 10/29/20 08:22 Olanzapine (ZyPREXA ZYDIS) 2.5 mg PRN Q2HR PRN PO PSYCHOSIS 08/24/20 19:45 10/25/20 15:29 Sertraline HCl (Zoloft) 25 mg DAILY PO 08/26/20 09:00 08/28/20 21:00 DC 08/28/20 08:37 Sertraline HCl (Zoloft) 50 mg DAILY PO 08/29/20 09:00 09/06/20 18:40 DC 09/04/20 08:58 Tamsulosin HCl (Flomax) 0.4 mg QHS PO 08/28/20 21:00 11/02/20 19:42 Mupirocin (Bactroban) 1 césar PRN BID PRN TP RASH 09/03/20 12:45 Diphenhydramine HCl (Benadryl) 50 mg 1X ONCE PO 09/04/20 21:00 09/04/20 21:01 DC 09/04/20 21:21 Olanzapine (ZyPREXA ZYDIS) 5 mg 1X ONCE PO 09/27/20 18:30 09/27/20 18:31 DC 09/27/20 18:30 Divalproex Sodium (Depakote Sprinkles) 125 mg 0900,1700 PO 09/28/20 17:00 10/12/20 17:08 DC 10/12/20 08:18 Furosemide (Lasix) 80 mg 1X ONCE PO 09/30/20 15:30 09/30/20 15:31 DC 09/30/20 16:00 Furosemide (Lasix) 80 mg DAILY PO 10/01/20 09:00 11/02/20 08:13 Potassium Chloride (Klor-Con) 20 meq DAILYWBKFT PO 10/01/20 08:00 11/02/20 08:14 Trazodone HCl (Desyrel) 50 mg PRN QHS PRN PO INSOMNIA 10/08/20 16:15 10/09/20 20:15 Divalproex Sodium (Depakote Sprinkles) 125 mg 0900,1300,1700,2100 PO 10/12/20 17:50 10/21/20 17:01 DC 10/21/20 12:26 Divalproex Sodium (Depakote Sprinkles) 125 mg 1300,1700 PO 10/21/20 17:00 10/25/20 17:17 DC 10/25/20 15:29 Divalproex Sodium (Depakote Sprinkles) 250 mg 0900,2100 PO 10/21/20 21:00 10/25/20 17:17 DC 10/25/20 09:09 Divalproex Sodium (Depakote Sprinkles) 250 mg QID PO 10/25/20 17:15 11/02/20 19:42 I have reviewed the current psychotropics carefully including drug interactions. Risk benefit ratio favors no change other than as noted in my dictated progress note. Diagnosis: Problems: (1) Impulse control disorder, unspecified (2) Anxiety disorder, unspecified (3) Dementia, vascular, with depression (4) Dementia, vascular, with delusions (5) Dementia in Alzheimer's disease with depression (6) Dementia in Alzheimer's disease with delusions (7) Dementia of the Alzheimer's type with early onset with behavioral disturbance (8) Major neurocognitive disorder VERENA AGUSTIN MD Nov 03, 2020 08:03
[2020-11-03] MEDS: POTASSIUM CHLORIDE 20 MEQ TABLET.ER. PO SCH (08:08)
[2020-11-03] MEDS: OMEGA-3 FATTY ACIDS/FISH OIL 1,000 MG CAPSULE. PO SCH (08:08)
[2020-11-03] MEDS: ASPIRIN CHEWABLE 81 MG TABLET. PO SCH (08:08)
[2020-11-03] MEDS: MULTIVITAMIN with MINERAL TABLET. PO SCH (08:08)
[2020-11-03] MEDS: CETIRIZINE HCL 10 MG TABLET PO SCH (08:09)
[2020-11-03] MEDS: DIVALPROEX 125 MG CAP.SPRINK PO SCH ×4 (08:09→19:59)
[2020-11-03] MEDS: PANTOPRAZOLE 40 MG TABLET. PO SCH (08:09)
[2020-11-03] MEDS: FUROSEMIDE 40 MG TABLET PO SCH (08:10)
--- NOTE | 2020-11-03 12:44 | TX PLAN ---
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 Change Sleep, Confusion/Disoriented, Poor impulse control, Other Problem in Patient's Words: I cannot care for him at home. Additional Admission Comments: According to the intake, pt was anxious, wandering, restless, insomnia, posturing [facility] staff, struck which resulted in police response Problems Active Problems: wandering restless Inactive Problems: medication compliant Pt Strengths/Limitations Ability for [place]: Poor Cognitive Functioning/Ability: Fair Communication Skills/Ability: Fair Financial Resources: Poor Insight/Judgement: Poor Intellectual Ability: Poor Physical Health: Fair Social Skills: Fair Stability in Family: Fair Stability in School/Work: Poor Verbal Skills: Fair Discharge Criteria Discharge Criteria: No need for close observ., Adequate arrangements @DC, Improved behavior, Improved mood/thought Preliminary Discharge Plan Preliminary DC Plan: Placement Needed Special Precautions Fall Risk: Low Initial D/C Plan Pt is not able to discharge home, will need placement once stable. Identified Discharge Needs: Referral for higher level of care Currently Utilized Resources Currently Utilized Resources/P: Primary Care Physician Identified Problems/Hx/Goals Objectives/Short-Term Goals Short Term Goals: Dec. Aggression, Dec. Outbursts, Medication Stabilization, Monitor Med Effects Short Term Goals in Patient's: N/A Interventions/Frequency Staff Interventions/Frequency&: Psychiatrist to assess pt at least 3x per week for medication management. Social Work to assess pt at least 2x per week to identify barriers to care and finalize discharge planning. Nursing to assess medication effects, behavior modification, and completion of 15 minute checks daily. Encourage participation in group activities (if applicable) or 1:1 engagement based off Activity Dept goals. 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 He received a Bachelors in Sociology. Community Follow-up Primary Care Physician Referrals to higher level of care Community Provider/Family Inpu: Pt has become increasingly aggressive towards his , who is caring for pt. She is not able to care for pt at home any longer. Treatment Plan Explained Patient/Filter Changing Technician had this treatment plan explained to him/her as indicated by the signature below and has been given the opportunity to ask questions and make suggestions: Date: Patient/Filter Changing Technician Signature: Status Update Update Pt is eating 100% of meals and sleeping up to 7.5 hours per night. Pt continues to wander the unit but is not exit seeking. Pt is cooperative with all staff cares and direction; compliant with medications crushed as he can no longer comprehend swallowing medications whole. Pt has been accepted to [facility] and [facility]. Pt is wanting to have pt discharge to [facility]. SW will continue to finalize pt discharge for the beginning of the week. WALESKA HARRELL Nov 03, 2020 12:44
[2020-11-03 15:44] VITALS: BP 106/69
[2020-11-03] MEDS: TAMSULOSIN 0.4 MG CAP.ER.24H. PO SCH (19:58)
[2020-11-03] MEDS: ATORVASTATIN CALCIUM 20 MG TABLET PO SCH (19:58)
--- NOTE | 2020-11-03 22:00 | PDOC ---
Exam Note: Fercho Note: Please also refer to the separate dictated note~for this date of service dictated separately.~Patient seen individually. Discussed the patient with Nursing staff reviewed the chart.~Reviewed interim history and current functioning. Reviewed vital signs,~Labs/ Radiology~and current medications noted below. Continue current treatment with the changes noted in the dictated addendum note Assessment: Vital Signs/I&O: Vital Signs Date Time Temp Pulse Resp B/P (MAP) Pulse Ox O2 Delivery O2 Flow Rate FiO2 11/03/20 15:44 97.4 69 16 106/69 (81) 96 11/03/20 06:11 Room Air I & O 11/02/20 11/02/20 11/03/20 15:00 23:00 07:00 Intake Total 600 ml 720 ml Balance 600 ml 720 ml Current Medications: Meds: Current Medications Medications (Trade) Dose Ordered Sig/Ashvin Route PRN Reason Start Time Stop Time Status Last Admin Dose Admin Acetaminophen (Tylenol) 650 mg PRN Q6HRS PRN PO MILD PAIN / TEMP > 100.3'F 08/24/20 18:15 11/01/20 16:33 Multi-Ingredient Ointment (Analgesic [place]) 1 césar PRN QID PRN TP MUSCLE PAIN 08/24/20 18:15 Al Hydroxide/Mg Hydroxide (Mylanta Plus Xs) 15 ml PRN AFTMEALHC PRN PO DYSPEPSIA 08/24/20 18:15 Magnesium Hydroxide (Milk Of Magnesia) 2,400 mg PRN QHS PRN PO CONSTIPATION 08/24/20 18:15 Aspirin (Aspirin Chewable) 81 mg DAILY PO 08/25/20 09:00 11/03/20 08:08 Cetirizine HCl (ZyrTEC) 10 mg DAILY08 PO 08/25/20 08:00 11/03/20 08:09 Donepezil HCl (Aricept) 23 mg QHS PO 08/24/20 21:00 08/28/20 15:38 DC 08/27/20 20:34 Fluoxetine HCl (PROzac) 20 mg DAILY PO 08/25/20 09:00 11/03/20 08:12 Lorazepam (Ativan) 1 mg PRN Q4HRS PRN PO ANXIETY / AGITATION 08/24/20 18:45 09/04/20 16:12 DC 09/04/20 01:29 Atorvastatin Calcium (Lipitor) 40 mg QHS PO 08/24/20 21:00 11/03/20 19:58 Pantoprazole Sodium (Protonix) 40 mg DAILY08 PO 08/25/20 08:00 11/03/20 08:09 Multivitamins/ Calcium (Thera-M Plus) 1 tab DAILY PO 08/25/20 09:00 11/03/20 08:08 Mupirocin (Bactroban) 1 césar BID92 TP 08/25/20 09:00 09/03/20 12:35 DC 09/01/20 14:00 Fish Oil (Fish Oil) 1,000 mg DAILY PO 08/25/20 09:00 11/03/20 08:08 Olanzapine (ZyPREXA ZYDIS) 2.5 mg PRN Q2HR PRN PO PSYCHOSIS 08/24/20 19:45 10/25/20 15:29 Sertraline HCl (Zoloft) 25 mg DAILY PO 08/26/20 09:00 08/28/20 21:00 DC 08/28/20 08:37 Sertraline HCl (Zoloft) 50 mg DAILY PO 08/29/20 09:00 09/06/20 18:40 DC 09/04/20 08:58 Tamsulosin HCl (Flomax) 0.4 mg QHS PO 08/28/20 21:00 11/03/20 19:58 Mupirocin (Bactroban) 1 césar PRN BID PRN TP RASH 09/03/20 12:45 Diphenhydramine HCl (Benadryl) 50 mg 1X ONCE PO 09/04/20 21:00 09/04/20 21:01 DC 09/04/20 21:21 Olanzapine (ZyPREXA ZYDIS) 5 mg 1X ONCE PO 09/27/20 18:30 09/27/20 18:31 DC 09/27/20 18:30 Divalproex Sodium (Depakote Sprinkles) 125 mg 0900,1700 PO 09/28/20 17:00 10/12/20 17:08 DC 10/12/20 08:18 Furosemide (Lasix) 80 mg 1X ONCE PO 09/30/20 15:30 09/30/20 15:31 DC 09/30/20 16:00 Furosemide (Lasix) 80 mg DAILY PO 10/01/20 09:00 11/03/20 08:10 Potassium Chloride (Klor-Con) 20 meq DAILYWBKFT PO 10/01/20 08:00 11/03/20 08:08 Trazodone HCl (Desyrel) 50 mg PRN QHS PRN PO INSOMNIA 10/08/20 16:15 10/09/20 20:15 Divalproex Sodium (Depakote Sprinkles) 125 mg 0900,1300,1700,2100 PO 10/12/20 17:50 10/21/20 17:01 DC 10/21/20 12:26 Divalproex Sodium (Depakote Sprinkles) 125 mg 1300,1700 PO 10/21/20 17:00 10/25/20 17:17 DC 10/25/20 15:29 Divalproex Sodium (Depakote Sprinkles) 250 mg 0900,2100 PO 10/21/20 21:00 10/25/20 17:17 DC 10/25/20 09:09 Divalproex Sodium (Depakote Sprinkles) 250 mg QID PO 10/25/20 17:15 11/03/20 19:59 I have reviewed the current psychotropics carefully including drug interactions. Risk benefit ratio favors no change other than as noted in my dictated progress note. Diagnosis: Problems: (1) Impulse control disorder, unspecified (2) Anxiety disorder, unspecified (3) Dementia, vascular, with depression (4) Dementia, vascular, with delusions (5) Dementia in Alzheimer's disease with depression (6) Dementia in Alzheimer's disease with delusions (7) Dementia of the Alzheimer's type with early onset with behavioral di sturbance (8) Major neurocognitive disorder VERENA AGUSTIN MD Nov 03, 2020 22:00
[2020-11-04 06:11] VITALS: BP 130/64
[2020-11-04] MEDS: OMEGA-3 FATTY ACIDS/FISH OIL 1,000 MG CAPSULE. PO SCH (08:34)
[2020-11-04] MEDS: MULTIVITAMIN with MINERAL TABLET. PO SCH (08:34)
[2020-11-04] MEDS: PANTOPRAZOLE 40 MG TABLET. PO SCH (08:34)
[2020-11-04] MEDS: CETIRIZINE HCL 10 MG TABLET PO SCH (08:34)
[2020-11-04] MEDS: DIVALPROEX 125 MG CAP.SPRINK PO SCH ×4 (08:34→21:00)
[2020-11-04] MEDS: ASPIRIN CHEWABLE 81 MG TABLET. PO SCH (08:34)
[2020-11-04] MEDS: POTASSIUM CHLORIDE 20 MEQ TABLET.ER. PO SCH (08:34)
[2020-11-04] MEDS: FUROSEMIDE 40 MG TABLET PO SCH (08:34)
[2020-11-04 15:50] VITALS: BP 120/75
[2020-11-04 18:00] VITALS: BP 123/73
[2020-11-04] MEDS: TAMSULOSIN 0.4 MG CAP.ER.24H. PO SCH (21:01)
[2020-11-04] MEDS: ATORVASTATIN CALCIUM 20 MG TABLET PO SCH (21:01)
--- NOTE | 2020-11-04 21:55 | PDOC ---
Exam Note: Fercho Note: Please also refer to the separate dictated note~for this date of service dictated separately.~Patient seen individually. Discussed the patient with Nursing staff reviewed the chart.~Reviewed interim history and current functioning. Reviewed vital signs,~Labs/ Radiology~and current medications noted below. Continue current treatment with the changes noted in the dictated addendum note Assessment: Vital Signs/I&O: Vital Signs Date Time Temp Pulse Resp B/P (MAP) Pulse Ox O2 Delivery O2 Flow Rate FiO2 11/04/20 18:00 97.5 94 16 123/73 (90) 98 Room Air I & O 11/03/20 11/03/20 11/04/20 15:00 23:00 07:00 Intake Total 480 ml 600 ml Balance 480 ml 600 ml Current Medications: Meds: Current Medications Medications (Trade) Dose Ordered Sig/Ashvin Route PRN Reason Start Time Stop Time Status Last Admin Dose Admin Acetaminophen (Tylenol) 650 mg PRN Q6HRS PRN PO MILD PAIN / TEMP > 100.3'F 08/24/20 18:15 11/01/20 16:33 Multi-Ingredient Ointment (Analgesic [place]) 1 césar PRN QID PRN TP MUSCLE PAIN 08/24/20 18:15 Al Hydroxide/Mg Hydroxide (Mylanta Plus Xs) 15 ml PRN AFTMEALHC PRN PO DYSPEPSIA 08/24/20 18:15 Magnesium Hydroxide (Milk Of Magnesia) 2,400 mg PRN QHS PRN PO CONSTIPATION 08/24/20 18:15 Aspirin (Aspirin Chewable) 81 mg DAILY PO 08/25/20 09:00 11/04/20 08:34 Cetirizine HCl (ZyrTEC) 10 mg DAILY08 PO 08/25/20 08:00 11/04/20 08:34 Donepezil HCl (Aricept) 23 mg QHS PO 08/24/20 21:00 08/28/20 15:38 DC 08/27/20 20:34 Fluoxetine HCl (PROzac) 20 mg DAILY PO 08/25/20 09:00 11/04/20 08:33 Lorazepam (Ativan) 1 mg PRN Q4HRS PRN PO ANXIETY / AGITATION 08/24/20 18:45 09/04/20 16:12 DC 09/04/20 01:29 Atorvastatin Calcium (Lipitor) 40 mg QHS PO 08/24/20 21:00 11/04/20 21:01 Pantoprazole Sodium (Protonix) 40 mg DAILY08 PO 08/25/20 08:00 11/04/20 08:34 Multivitamins/ Calcium (Thera-M Plus) 1 tab DAILY PO 08/25/20 09:00 11/04/20 08:34 Mupirocin (Bactroban) 1 césar BID92 TP 08/25/20 09:00 09/03/20 12:35 DC 09/01/20 14:00 Fish Oil (Fish Oil) 1,000 mg DAILY PO 08/25/20 09:00 11/04/20 08:34 Olanzapine (ZyPREXA ZYDIS) 2.5 mg PRN Q2HR PRN PO PSYCHOSIS 08/24/20 19:45 10/25/20 15:29 Sertraline HCl (Zoloft) 25 mg DAILY PO 08/26/20 09:00 08/28/20 21:00 DC 08/28/20 08:37 Sertraline HCl (Zoloft) 50 mg DAILY PO 08/29/20 09:00 09/06/20 18:40 DC 09/04/20 08:58 Tamsulosin HCl (Flomax) 0.4 mg QHS PO 08/28/20 21:00 11/04/20 21:01 Mupirocin (Bactroban) 1 césar PRN BID PRN TP RASH 09/03/20 12:45 Diphenhydramine HCl (Benadryl) 50 mg 1X ONCE PO 09/04/20 21:00 09/04/20 21:01 DC 09/04/20 21:21 Olanzapine (ZyPREXA ZYDIS) 5 mg 1X ONCE PO 09/27/20 18:30 09/27/20 18:31 DC 09/27/20 18:30 Divalproex Sodium (Depakote Sprinkles) 125 mg 0900,1700 PO 09/28/20 17:00 10/12/20 17:08 DC 10/12/20 08:18 Furosemide (Lasix) 80 mg 1X ONCE PO 09/30/20 15:30 09/30/20 15:31 DC 09/30/20 16:00 Furosemide (Lasix) 80 mg DAILY PO 10/01/20 09:00 11/04/20 08:34 Potassium Chloride (Klor-Con) 20 meq DAILYWBKFT PO 10/01/20 08:00 11/04/20 08:34 Trazodone HCl (Desyrel) 50 mg PRN QHS PRN PO INSOMNIA 10/08/20 16:15 10/09/20 20:15 Divalproex Sodium (Depakote Sprinkles) 125 mg 0900,1300,1700,2100 PO 10/12/20 17:50 10/21/20 17:01 DC 10/21/20 12:26 Divalproex Sodium (Depakote Sprinkles) 125 mg 1300,1700 PO 10/21/20 17:00 10/25/20 17:17 DC 10/25/20 15:29 Divalproex Sodium (Depakote Sprinkles) 250 mg 0900,2100 PO 10/21/20 21:00 10/25/20 17:17 DC 10/25/20 09:09 Divalproex Sodium (Depakote Sprinkles) 250 mg QID PO 10/25/20 17:15 11/04/20 21:00 I have reviewed the current psychotropics carefully including drug interactions. Risk benefit ratio favors no change other than as noted in my dictated progress note. Diagnosis: Problems: (1) Impulse control disorder, unspecified (2) Anxiety disorder, unspecified (3) Dementia, vascular, with depression (4) Dementia, vascular, with delusions (5) Dementia in Alzheimer's disease with depression (6) Dementia in Alzheimer's disease with delusions (7) Dementia of the Alzheimer's type with early onset with behavioral disturbance (8) Major neurocognitive disorder VERENA AGUSTIN MD Nov 04, 2020 21:55
[2020-11-05 05:47] VITALS: BP 122/78
[2020-11-05] MEDS: PANTOPRAZOLE 40 MG TABLET. PO SCH (08:26)
[2020-11-05] MEDS: ASPIRIN CHEWABLE 81 MG TABLET. PO SCH (08:26)
[2020-11-05] MEDS: DIVALPROEX 125 MG CAP.SPRINK PO SCH ×4 (08:26→21:05)
[2020-11-05] MEDS: POTASSIUM CHLORIDE 20 MEQ TABLET.ER. PO SCH (08:27)
[2020-11-05] MEDS: OMEGA-3 FATTY ACIDS/FISH OIL 1,000 MG CAPSULE. PO SCH (08:27)
[2020-11-05] MEDS: CETIRIZINE HCL 10 MG TABLET PO SCH (08:27)
[2020-11-05] MEDS: MULTIVITAMIN with MINERAL TABLET. PO SCH (08:27)
[2020-11-05] MEDS: FUROSEMIDE 40 MG TABLET PO SCH (08:27)
--- NOTE | 2020-11-05 08:38 | PDOC ---
Exam Note: Fercho Note: This note is a late entry for 11/03/2020 covers elements not covered in my initial note. Subjective: The patient was seen individually in the morning of 11/03/2020 for a treatment team meeting with Niecy Naqvi, Ingris Serrano (aids social worker), Ingrid, activity therapy and Dev RN, discussed and reviewed the chart. Discussed his progress, current psychotropics, reviewed drug interactions, risk-benefit ratio. He slept 5-1/4 hours previous night. Overall the patient remains confused, wanders the hallways, pleasant, smiling as I met with him on the side of the second nursing station. He was looking down at the garden on the ground floor but had difficulty focusing on the pink [place] and other things that I tried to attract his attention to. Nevertheless, he was pleasant, smiling. Review of Systems: No CV, , pulmonary, eye, ENT system symptoms on review. Mental Status Exam: The patient is oriented to himself. Insight and judgment, recent and remote memory, attention and concentration, fund of knowledge is poor consistent with his diagnoses. Laboratory Data: Reviewed. Impression: Major neurocognitive disorder Alzheimer vascular with delusion, depression, behavioral disturbance. Anxiety disorder unspecified. Impulse control disorder unspecified. Plan: No change from initial note. Staff discussed that he has been accepted at [facility] and we will plan a transition as coordinated by social service. Assessment: Vital Signs/I&O: Vital Signs Date Time Temp Pulse Resp B/P (MAP) Pulse Ox O2 Delivery O2 Flow Rate FiO2 11/05/20 05:47 97.8 74 18 122/78 (93) 99 Room Air I & O 11/04/20 11/04/20 11/05/20 15:00 23:00 07:00 Intake Total 600 ml 960 ml Balance 600 ml 960 ml Current Medications: Meds: Current Medications Medications (Trade) Dose Ordered Sig/Ashvin Route PRN Reason Start Time Stop Time Status Last Admin Dose Admin Acetaminophen (Tylenol) 650 mg PRN Q6HRS PRN PO MILD PAIN / TEMP > 100.3'F 08/24/20 18:15 11/01/20 16:33 Multi-Ingredient Ointment (Analgesic [place]) 1 césar PRN QID PRN TP MUSCLE PAIN 08/24/20 18:15 Al Hydroxide/Mg Hydroxide (Mylanta Plus Xs) 15 ml PRN AFTMEALHC PRN PO DYSPEPSIA 08/24/20 18:15 Magnesium Hydroxide (Milk Of Magnesia) 2,400 mg PRN QHS PRN PO CONSTIPATION 08/24/20 18:15 Aspirin (Aspirin Chewable) 81 mg DAILY PO 08/25/20 09:00 11/05/20 08:26 Cetirizine HCl (ZyrTEC) 10 mg DAILY08 PO 08/25/20 08:00 11/05/20 08:27 Donepezil HCl (Aricept) 23 mg QHS PO 08/24/20 21:00 08/28/20 15:38 DC 08/27/20 20:34 Fluoxetine HCl (PROzac) 20 mg DAILY PO 08/25/20 09:00 11/05/20 08:27 Lorazepam (Ativan) 1 mg PRN Q4HRS PRN PO ANXIETY / AGITATION 08/24/20 18:45 09/04/20 16:12 DC 09/04/20 01:29 Atorvastatin Calcium (Lipitor) 40 mg QHS PO 08/24/20 21:00 11/04/20 21:01 Pantoprazole Sodium (Protonix) 40 mg DAILY08 PO 08/25/20 08:00 11/05/20 08:26 Multivitamins/ Calcium (Thera-M Plus) 1 tab DAILY PO 08/25/20 09:00 11/05/20 08:27 Mupirocin (Bactroban) 1 césar BID92 TP 08/25/20 09:00 09/03/20 12:35 DC 09/01/20 14:00 Fish Oil (Fish Oil) 1,000 mg DAILY PO 08/25/20 09:00 11/05/20 08:27 Olanzapine (ZyPREXA ZYDIS) 2.5 mg PRN Q2HR PRN PO PSYCHOSIS 08/24/20 19:45 10/25/20 15:29 Sertraline HCl (Zoloft) 25 mg DAILY PO 08/26/20 09:00 08/28/20 21:00 DC 08/28/20 08:37 Sertraline HCl (Zoloft) 50 mg DAILY PO 08/29/20 09:00 09/06/20 18:40 DC 09/04/20 08:58 Tamsulosin HCl (Flomax) 0.4 mg QHS PO 08/28/20 21:00 11/04/20 21:01 Mupirocin (Bactroban) 1 césar PRN BID PRN TP RASH 09/03/20 12:45 Diphenhydramine HCl (Benadryl) 50 mg 1X ONCE PO 09/04/20 21:00 09/04/20 21:01 DC 09/04/20 21:21 Olanzapine (ZyPREXA ZYDIS) 5 mg 1X ONCE PO 09/27/20 18:30 09/27/20 18:31 DC 09/27/20 18:30 Divalproex Sodium (Depakote Sprinkles) 125 mg 0900,1700 PO 09/28/20 17:00 10/12/20 17:08 DC 10/12/20 08:18 Furosemide (Lasix) 80 mg 1X ONCE PO 09/30/20 15:30 09/30/20 15:31 DC 09/30/20 16:00 Furosemide (Lasix) 80 mg DAILY PO 10/01/20 09:00 11/05/20 08:27 Potassium Chloride (Klor-Con) 20 meq DAILYWBKFT PO 10/01/20 08:00 11/05/20 08:27 Trazodone HCl (Desyrel) 50 mg PRN QHS PRN PO INSOMNIA 10/08/20 16:15 10/09/20 20:15 Divalproex Sodium (Depakote Sprinkles) 125 mg 0900,1300,1700,2100 PO 10/12/20 17:50 10/21/20 17:01 DC 10/21/20 12:26 Divalproex Sodium (Depakote Sprinkles) 125 mg 1300,1700 PO 10/21/20 17:00 10/25/20 17:17 DC 10/25/20 15:29 Divalproex Sodium (Depakote Sprinkles) 250 mg 0900,2100 PO 10/21/20 21:00 10/25/20 17:17 DC 10/25/20 09:09 Divalproex Sodium (Depakote Sprinkles) 250 mg QID PO 10/25/20 17:15 11/05/20 08:26 I have reviewed the current psychotropics carefully including drug interactions. Risk benefit ratio favors no change other than as noted in my dictated progress note. Diagnosis: Problems: (1) Impulse control disorder, unspecified (2) Anxiety disorder, unspecified (3) Dementia, vascular, with depression (4) Dementia, vascular, with delusions (5) Dementia in Alzheimer's disease with depression (6) Dementia in Alzheimer's disease with delusions (7) Dementia of the Alzheimer's type with early onset with behavioral disturbance (8) Major neurocognitive disorder VERENA AGUSTIN MD Nov 05, 2020 08:38
[2020-11-05 16:08] VITALS: BP 112/74
[2020-11-05] MEDS: TAMSULOSIN 0.4 MG CAP.ER.24H. PO SCH (21:05)
[2020-11-05] MEDS: ATORVASTATIN CALCIUM 20 MG TABLET PO SCH (21:05)
--- NOTE | 2020-11-05 21:56 | PDOC ---
Exam Note: Fercho Note: Please also refer to the separate dictated note~for this date of service dictated separately.~Patient seen individually. Discussed the patient with Nursing staff reviewed the chart.~Reviewed interim history and current functioning. Reviewed vital signs,~Labs/ Radiology~and current medications noted below. Continue current treatment with the changes noted in the dictated addendum note Assessment: Vital Signs/I&O: Vital Signs Date Time Temp Pulse Resp B/P (MAP) Pulse Ox O2 Delivery O2 Flow Rate FiO2 11/05/20 16:08 97.1 82 16 112/74 (87) 96 11/05/20 05:47 Room Air I & O 11/04/20 11/04/20 11/05/20 15:00 23:00 07:00 Intake Total 600 ml 960 ml Balance 600 ml 960 ml Labs: Laboratory Tests Test 11/05/20 09:45 SARS-CoV-2 (PCR) Negative (NEGATIVE) Current Medications: Meds: Laboratory Tests Test 11/05/20 09:45 Coronavirus (COVID-19)(PCR) Negative Current Medications Medications (Trade) Dose Ordered Sig/Ashvin Route PRN Reason Start Time Stop Time Status Last Admin Dose Admin Acetaminophen (Tylenol) 650 mg PRN Q6HRS PRN PO MILD PAIN / TEMP > 100.3'F 08/24/20 18:15 11/01/20 16:33 Multi-Ingredient Ointment (Analgesic [place]) 1 césar PRN QID PRN TP MUSCLE PAIN 08/24/20 18:15 Al Hydroxide/Mg Hydroxide (Mylanta Plus Xs) 15 ml PRN AFTMEALHC PRN PO DYSPEPSIA 08/24/20 18:15 Magnesium Hydroxide (Milk Of Magnesia) 2,400 mg PRN QHS PRN PO CONSTIPATION 08/24/20 18:15 Aspirin (Aspirin Chewable) 81 mg DAILY PO 08/25/20 09:00 11/05/20 08:26 Cetirizine HCl (ZyrTEC) 10 mg DAILY08 PO 08/25/20 08:00 11/05/20 08:27 Donepezil HCl (Aricept) 23 mg QHS PO 08/24/20 21:00 08/28/20 15:38 DC 08/27/20 20:34 Fluoxetine HCl (PROzac) 20 mg DAILY PO 08/25/20 09:00 11/05/20 08:27 Lorazepam (Ativan) 1 mg PRN Q4HRS PRN PO ANXIETY / AGITATION 08/24/20 18:45 09/04/20 16:12 DC 09/04/20 01:29 Atorvastatin Calcium (Lipitor) 40 mg QHS PO 08/24/20 21:00 11/05/20 21:05 Pantoprazole Sodium (Protonix) 40 mg DAILY08 PO 08/25/20 08:00 11/05/20 08:26 Multivitamins/ Calcium (Thera-M Plus) 1 tab DAILY PO 08/25/20 09:00 11/05/20 08:27 Mupirocin (Bactroban) 1 césar BID92 TP 08/25/20 09:00 09/03/20 12:35 DC 09/01/20 14:00 Fish Oil (Fish Oil) 1,000 mg DAILY PO 08/25/20 09:00 11/05/20 08:27 Olanzapine (ZyPREXA ZYDIS) 2.5 mg PRN Q2HR PRN PO PSYCHOSIS 08/24/20 19:45 10/25/20 15:29 Sertraline HCl (Zoloft) 25 mg DAILY PO 08/26/20 09:00 08/28/20 21:00 DC 08/28/20 08:37 Sertraline HCl (Zoloft) 50 mg DAILY PO 08/29/20 09:00 09/06/20 18:40 DC 09/04/20 08:58 Tamsulosin HCl (Flomax) 0.4 mg QHS PO 08/28/20 21:00 11/05/20 21:05 Mupirocin (Bactroban) 1 césar PRN BID PRN TP RASH 09/03/20 12:45 Diphenhydramine HCl (Benadryl) 50 mg 1X ONCE PO 09/04/20 21:00 09/04/20 21:01 DC 09/04/20 21:21 Olanzapine (ZyPREXA ZYDIS) 5 mg 1X ONCE PO 09/27/20 18:30 09/27/20 18:31 DC 09/27/20 18:30 Divalproex Sodium (Depakote Sprinkles) 125 mg 0900,1700 PO 09/28/20 17:00 10/12/20 17:08 DC 10/12/20 08:18 Furosemide (Lasix) 80 mg 1X ONCE PO 09/30/20 15:30 09/30/20 15:31 DC 09/30/20 16:00 Furosemide (Lasix) 80 mg DAILY PO 10/01/20 09:00 11/05/20 08:27 Potassium Chloride (Klor-Con) 20 meq DAILYWBKFT PO 10/01/20 08:00 11/05/20 08:27 Trazodone HCl (Desyrel) 50 mg PRN QHS PRN PO INSOMNIA 10/08/20 16:15 10/09/20 20:15 Divalproex Sodium (Depakote Sprinkles) 125 mg 0900,1300,1700,2100 PO 10/12/20 17:50 10/21/20 17:01 DC 10/21/20 12:26 Divalproex Sodium (Depakote Sprinkles) 125 mg 1300,1700 PO 10/21/20 17:00 10/25/20 17:17 DC 10/25/20 15:29 Divalproex Sodium (Depakote Sprinkles) 250 mg 0900,2100 PO 10/21/20 21:00 10/25/20 17:17 DC 10/25/20 09:09 Divalproex Sodium (Depakote Sprinkles) 250 mg QID PO 10/25/20 17:15 11/05/20 21:05 I have reviewed the current psychotropics carefully including drug interactions. Risk benefit ratio favors no change other than as noted in my dictated progress note. Diagnosis: Problems: (1) Impulse control disorder, unspecified (2) Anxiety disorder, unspecified (3) Dementia, vascular, with depression (4) Dementia, vascular, with delusions (5) Dementia in Alzheimer's disease with depression (6) Dementia in Alzheimer's disease with delusions (7) Dementia of the Alzheimer's type with early onset with behavioral disturbance (8) Major neurocognitive disorder VERENA AGUSTIN MD Nov 05, 2020 21:56
[2020-11-06 05:28] VITALS: BP 124/71
--- NOTE | 2020-11-06 08:46 | PDOC ---
Exam Note: Fercho Note: This note is a late entry for 11/04/2020 covers elements not covered in my initial note. Subjective: The patient was seen individually in the evening of 11/04/2020 with Spring ABREU, discussed and reviewed the chart. He slept 6-1/2 hours previous night. I met with him in the dayroom. He had had his ice-creams some of which was spilled on his clothes and his hands were soaked in it and I directed him towards his room. He was pleasant and smiling. Review of Systems: No CV, , pulmonary, eye, ENT system symptoms on review. Mental Status Exam: The patient is oriented to himself. Insight and judgment, recent and remote memory, attention and concentration, fund of knowledge is poor consistent with his diagnoses. Laboratory Data: Reviewed. Impression: Major neurocognitive disorder Alzheimer vascular with delusion, depression, behavioral disturbance. Anxiety disorder unspecified. Impulse control disorder unspecified. Plan: No change from initial note. Assessment: Vital Signs/I&O: Vital Signs Date Time Temp Pulse Resp B/P (MAP) Pulse Ox O2 Delivery O2 Flow Rate FiO2 11/06/20 05:28 96.8 63 18 124/71 (88) 96 Room Air I & O 11/05/20 11/05/20 11/06/20 14:59 22:59 06:59 Intake Total 360 ml 240 ml Balance 360 ml 240 ml Labs: Laboratory Tests Test 11/05/20 09:45 SARS-CoV-2 (PCR) Negative (NEGATIVE) Current Medications: Meds: Laboratory Tests Test 11/05/20 09:45 Coronavirus (COVID-19)(PCR) Negative Current Medications Medications (Trade) Dose Ordered Sig/Ashvin Route PRN Reason Start Time Stop Time Status Last Admin Dose Admin Acetaminophen (Tylenol) 650 mg PRN Q6HRS PRN PO MILD PAIN / TEMP > 100.3'F 08/24/20 18:15 11/01/20 16:33 Multi-Ingredient Ointment (Analgesic [place]) 1 césar PRN QID PRN TP MUSCLE PAIN 08/24/20 18:15 Al Hydroxide/Mg Hydroxide (Mylanta Plus Xs) 15 ml PRN AFTMEALHC PRN PO DYSPEPSIA 08/24/20 18:15 Magnesium Hydroxide (Milk Of Magnesia) 2,400 mg PRN QHS PRN PO CONSTIPATION 08/24/20 18:15 Aspirin (Aspirin Chewable) 81 mg DAILY PO 08/25/20 09:00 11/05/20 08:26 Cetirizine HCl (ZyrTEC) 10 mg DAILY08 PO 08/25/20 08:00 11/05/20 08:27 Donepezil HCl (Aricept) 23 mg QHS PO 08/24/20 21:00 08/28/20 15:38 DC 08/27/20 20:34 Fluoxetine HCl (PROzac) 20 mg DAILY PO 08/25/20 09:00 11/05/20 08:27 Lorazepam (Ativan) 1 mg PRN Q4HRS PRN PO ANXIETY / AGITATION 08/24/20 18:45 09/04/20 16:12 DC 09/04/20 01:29 Atorvastatin Calcium (Lipitor) 40 mg QHS PO 08/24/20 21:00 11/05/20 21:05 Pantoprazole Sodium (Protonix) 40 mg DAILY08 PO 08/25/20 08:00 11/05/20 08:26 Multivitamins/ Calcium (Thera-M Plus) 1 tab DAILY PO 08/25/20 09:00 11/05/20 08:27 Mupirocin (Bactroban) 1 césar BID92 TP 08/25/20 09:00 09/03/20 12:35 DC 09/01/20 14:00 Fish Oil (Fish Oil) 1,000 mg DAILY PO 08/25/20 09:00 11/05/20 08:27 Olanzapine (ZyPREXA ZYDIS) 2.5 mg PRN Q2HR PRN PO PSYCHOSIS 08/24/20 19:45 10/25/20 15:29 Sertraline HCl (Zoloft) 25 mg DAILY PO 08/26/20 09:00 08/28/20 21:00 DC 08/28/20 08:37 Sertraline HCl (Zoloft) 50 mg DAILY PO 08/29/20 09:00 09/06/20 18:40 DC 09/04/20 08:58 Tamsulosin HCl (Flomax) 0.4 mg QHS PO 08/28/20 21:00 11/05/20 21:05 Mupirocin (Bactroban) 1 césar PRN BID PRN TP RASH 09/03/20 12:45 Diphenhydramine HCl (Benadryl) 50 mg 1X ONCE PO 09/04/20 21:00 09/04/20 21:01 DC 09/04/20 21:21 Olanzapine (ZyPREXA ZYDIS) 5 mg 1X ONCE PO 09/27/20 18:30 09/27/20 18:31 DC 09/27/20 18:30 Divalproex Sodium (Depakote Sprinkles) 125 mg 0900,1700 PO 09/28/20 17:00 10/12/20 17:08 DC 10/12/20 08:18 Furosemide (Lasix) 80 mg 1X ONCE PO 09/30/20 15:30 09/30/20 15:31 DC 09/30/20 16:00 Furosemide (Lasix) 80 mg DAILY PO 10/01/20 09:00 11/05/20 08:27 Potassium Chloride (Klor-Con) 20 meq DAILYWBKFT PO 10/01/20 08:00 11/05/20 08:27 Trazodone HCl (Desyrel) 50 mg PRN QHS PRN PO INSOMNIA 10/08/20 16:15 10/09/20 20:15 Divalproex Sodium (Depakote Sprinkles) 125 mg 0900,1300,1700,2100 PO 10/12/20 17:50 10/21/20 17:01 DC 10/21/20 12:26 Divalproex Sodium (Depakote Sprinkles) 125 mg 1300,1700 PO 10/21/20 17:00 10/25/20 17:17 DC 10/25/20 15:29 Divalproex Sodium (Depakote Sprinkles) 250 mg 0900,2100 PO 10/21/20 21:00 10/25/20 17:17 DC 10/25/20 09:09 Divalproex Sodium (Depakote Sprinkles) 250 mg QID PO 10/25/20 17:15 11/05/20 21:05 I have reviewed the current psychotropics carefully including drug interactions. Risk benefit ratio favors no change other than as noted in my dictated progress note. Diagnosis: Problems: (1) Impulse control disorder, unspecified (2) Anxiety disorder, unspecified (3) Dementia, vascular, with depression (4) Dementia, vascular, with delusions (5) Dementia in Alzheimer's disease with depression (6) Dementia in Alzheimer's disease with delusions (7) Dementia of the Alzheimer's type with early onset with behavioral disturbance (8) Major neurocognitive disorder VERENA AGUSTIN MD Nov 06, 2020 08:46
[2020-11-06] MEDS: OMEGA-3 FATTY ACIDS/FISH OIL 1,000 MG CAPSULE. PO SCH (09:05)
[2020-11-06] MEDS: MULTIVITAMIN with MINERAL TABLET. PO SCH (09:05)
[2020-11-06] MEDS: DIVALPROEX 125 MG CAP.SPRINK PO SCH ×4 (09:05→20:12)
[2020-11-06] MEDS: ASPIRIN CHEWABLE 81 MG TABLET. PO SCH (09:05)
[2020-11-06] MEDS: FUROSEMIDE 40 MG TABLET PO SCH (09:05)
[2020-11-06] MEDS: POTASSIUM CHLORIDE 20 MEQ TABLET.ER. PO SCH (09:05)
[2020-11-06] MEDS: PANTOPRAZOLE 40 MG TABLET. PO SCH (09:06)
[2020-11-06] MEDS: CETIRIZINE HCL 10 MG TABLET PO SCH (09:06)
[2020-11-06 10:48] LABS: BASO # 0.1 x10^3/uL (0.0-0.2); BASO % 1 % (0-3); EOS # 0.2 x10^3/uL (0.0-0.7); EOS % 2 % (0-3); HEMATOCRIT 41.1 % (39.0-53.0); HEMOGLOBIN 13.4 g/dL (13.0-17.5); LYMPH # 1.2 x10^3/uL (1.0-4.8); LYMPH % 16 % (24-48); MEAN CORPUSCULAR HEMOGLOBIN 29 pg (25-35); MEAN CORPUSCULAR HGB CONC 33 g/dL (31-37); MEAN CORPUSCULAR VOLUME 89 fL (79-100); MONO # 0.8 x10^3/uL (0.0-1.1); MONO % 10 % (0-9); NEUT # 5.6 x10^3uL (1.8-7.7); NEUT % 72 % (31-73); PLATELET COUNT 178 x10^3/uL (140-400); RED BLOOD COUNT 4.62 x10^6/uL (4.30-5.70); RED CELL DISTRIBUTION WIDTH 14.7 % (11.5-14.5); WHITE BLOOD COUNT 7.8 x10^3/uL (4.0-11.0)
[2020-11-06 11:00] LABS: ALBUMIN 3.6 g/dL (3.4-5.0); ALBUMIN/GLOBULIN RATIO 1.2 (1.0-1.7); CALCIUM 8.7 mg/dL (8.5-10.1); CREATININE 1.8 mg/dL (0.7-1.3); GFR 37.2; TOTAL PROTEIN 6.7 g/dL (6.4-8.2)
[2020-11-06 15:57] VITALS: BP 105/61
--- NOTE | 2020-11-06 16:46 | RAD ---
CT HEAD/BRAIN WO dated 11/06/2020 4:10 PM. Comparison: CT 09/04/2020. Clinical Indication: Reason: Nuero changes post fall. / Spl. Instructions: / History: Technical factors: Contiguous 5 mm axial images of the head were obtained from the skullbase to the vertex. No contrast was administered. Findings: There is mild motion artifact, although diagnostic information is available. There is no apparent intracranial hemorrhage or abnormal extra-axial fluid collection. No new area of abnormal density is seen. The ventricles and basilar cisterns are normally positioned. Bone windows show no apparent fracture of the skull or abnormal sinus or mastoid opacification. Impression: No evidence of acute intracranial abnormality. Electronically signed by: Ivan Lim Jr., MD (11/06/2020 4:44 PM) [facility]
[2020-11-06] MEDS: ATORVASTATIN CALCIUM 20 MG TABLET PO SCH (20:12)
[2020-11-06] MEDS: TAMSULOSIN 0.4 MG CAP.ER.24H. PO SCH (20:12)
--- NOTE | 2020-11-06 21:55 | PDOC ---
Exam Note: Fercho Note: Please also refer to the separate dictated note~for this date of service dictated separately.~Patient seen individually. Discussed the patient with Nursing staff reviewed the chart.~Reviewed interim history and current functioning. Reviewed vital signs,~Labs/ Radiology~and current medications noted below. Continue current treatment with the changes noted in the dictated addendum note Assessment: Vital Signs/I&O: Vital Signs Date Time Temp Pulse Resp B/P (MAP) Pulse Ox O2 Delivery O2 Flow Rate FiO2 11/06/20 15:57 98.1 70 18 105/61 (76) 100 Room Air I & O 11/05/20 11/05/20 11/06/20 15:00 23:00 07:00 Intake Total 360 ml 240 ml Balance 360 ml 240 ml Labs: Laboratory Tests Test 11/06/20 10:30 White Blood Count 7.8 x10^3/uL (4.0-11.0) Red Blood Count 4.62 x10^6/uL (4.30-5.70) Hemoglobin 13.4 g/dL (13.0-17.5) Hematocrit 41.1 % (39.0-53.0) Mean Corpuscular Volume 89 fL (79-100) Mean Corpuscular Hemoglobin 29 pg (25-35) Mean Corpuscular Hemoglobin Concent 33 g/dL (31-37) Red Cell Distribution Width 14.7 % (11.5-14.5) H Platelet Count 178 x10^3/uL (140-400) Neutrophils (%) (Auto) 72 % (31-73) Lymphocytes (%) (Auto) 16 % (24-48) L Monocytes (%) (Auto) 10 % (0-9) H Eosinophils (%) (Auto) 2 % (0-3) Basophils (%) (Auto) 1 % (0-3) Neutrophils # (Auto) 5.6 x10^3uL (1.8-7.7) Lymphocytes # (Auto) 1.2 x10^3/uL (1.0-4.8) Monocytes # (Auto) 0.8 x10^3/uL (0.0-1.1) Eosinophils # (Auto) 0.2 x10^3/uL (0.0-0.7) Basophils # (Auto) 0.1 x10^3/uL (0.0-0.2) Sodium Level 138 mmol/L (136-145) Potassium Level 4.0 mmol/L (3.5-5.1) Chloride Level 105 mmol/L (98-107) Carbon Dioxide Level 28 mmol/L (21-32) Anion Gap 5 (6-14) L Blood Urea Nitrogen 40 mg/dL (8-26) H Creatinine 1.8 mg/dL (0.7-1.3) H Estimated GFR (Cockcroft-Gault) 37.2 BUN/Creatinine Ratio 22 (6-20) H Glucose Level 120 mg/dL (70-99) H Calcium Level 8.7 mg/dL (8.5-10.1) Total Bilirubin 1.0 mg/dL (0.2-1.0) Aspartate Amino Transferase (AST) 29 U/L (15-37) Alanine Aminotransferase (ALT) 29 U/L (16-63) Alkaline Phosphatase 58 U/L (46-116) Total Protein 6.7 g/dL (6.4-8.2) Albumin 3.6 g/dL (3.4-5.0) Albumin/Globulin Ratio 1.2 (1.0-1.7) Current Medications: Meds: Laboratory Tests Test 11/06/20 10:30 White Blood Count 7.8 x10^3/uL Red Blood Count 4.62 x10^6/uL Hemoglobin 13.4 g/dL Hematocrit 41.1 % Mean Corpuscular Volume 89 fL Mean Corpuscular Hemoglobin 29 pg Mean Corpuscular Hemoglobin Concent 33 g/dL Red Cell Distribution Width 14.7 % Platelet Count 178 x10^3/uL Neutrophils (%) (Auto) 72 % Lymphocytes (%) (Auto) 16 % Monocytes (%) (Auto) 10 % Eosinophils (%) (Auto) 2 % Basophils (%) (Auto) 1 % Neutrophils # (Auto) 5.6 x10^3uL Lymphocytes # (Auto) 1.2 x10^3/uL Monocytes # (Auto) 0.8 x10^3/uL Eosinophils # (Auto) 0.2 x10^3/uL Basophils # (Auto) 0.1 x10^3/uL Sodium Level 138 mmol/L Potassium Level 4.0 mmol/L Chloride Level 105 mmol/L Carbon Dioxide Level 28 mmol/L Anion Gap 5 Blood Urea Nitrogen 40 mg/dL Creatinine 1.8 mg/dL Estimated GFR (Cockcroft-Gault) 37.2 BUN/Creatinine Ratio 22 Glucose Level 120 mg/dL Calcium Level 8.7 mg/dL Total Bilirubin 1.0 mg/dL Aspartate Amino Transf (AST/SGOT) 29 U/L Alanine Aminotransferase (ALT/SGPT) 29 U/L Alkaline Phosphatase 58 U/L Total Protein 6.7 g/dL Albumin 3.6 g/dL Albumin/Globulin Ratio 1.2 Current Medications Medications (Trade) Dose Ordered Sig/Ashvin Route PRN Reason Start Time Stop Time Status Last Admin Dose Admin Acetaminophen (Tylenol) 650 mg PRN Q6HRS PRN PO MILD PAIN / TEMP > 100.3'F 08/24/20 18:15 11/01/20 16:33 Multi-Ingredient Ointment (Analgesic [place]) 1 césar PRN QID PRN TP MUSCLE PAIN 08/24/20 18:15 Al Hydroxide/Mg Hydroxide (Mylanta Plus Xs) 15 ml PRN AFTMEALHC PRN PO DYSPEPSIA 08/24/20 18:15 Magnesium Hydroxide (Milk Of Magnesia) 2,400 mg PRN QHS PRN PO CONSTIPATION 08/24/20 18:15 Aspirin (Aspirin Chewable) 81 mg DAILY PO 08/25/20 09:00 11/06/20 09:05 Cetirizine HCl (ZyrTEC) 10 mg DAILY08 PO 08/25/20 08:00 11/06/20 09:06 Donepezil HCl (Aricept) 23 mg QHS PO 08/24/20 21:00 08/28/20 15:38 DC 08/27/20 20:34 Fluoxetine HCl (PROzac) 20 mg DAILY PO 08/25/20 09:00 11/06/20 09:05 Lorazepam (Ativan) 1 mg PRN Q4HRS PRN PO ANXIETY / AGITATION 08/24/20 18:45 09/04/20 16:12 DC 09/04/20 01:29 Atorvastatin Calcium (Lipitor) 40 mg QHS PO 08/24/20 21:00 11/06/20 20:12 Pantoprazole Sodium (Protonix) 40 mg DAILY08 PO 08/25/20 08:00 11/06/20 09:06 Multivitamins/ Calcium (Thera-M Plus) 1 tab DAILY PO 08/25/20 09:00 11/06/20 09:05 Mupirocin (Bactroban) 1 césar BID92 TP 08/25/20 09:00 09/03/20 12:35 DC 09/01/20 14:00 Fish Oil (Fish Oil) 1,000 mg DAILY PO 08/25/20 09:00 11/06/20 09:05 Olanzapine (ZyPREXA ZYDIS) 2.5 mg PRN Q2HR PRN PO PSYCHOSIS 08/24/20 19:45 10/25/20 15:29 Sertraline HCl (Zoloft) 25 mg DAILY PO 08/26/20 09:00 08/28/20 21:00 DC 08/28/20 08:37 Sertraline HCl (Zoloft) 50 mg DAILY PO 08/29/20 09:00 09/06/20 18:40 DC 09/04/20 08:58 Tamsulosin HCl (Flomax) 0.4 mg QHS PO 08/28/20 21:00 11/06/20 20:12 Mupirocin (Bactroban) 1 césar PRN BID PRN TP RASH 09/03/20 12:45 Diphenhydramine HCl (Benadryl) 50 mg 1X ONCE PO 09/04/20 21:00 09/04/20 21:01 DC 09/04/20 21:21 Olanzapine (ZyPREXA ZYDIS) 5 mg 1X ONCE PO 09/27/20 18:30 09/27/20 18:31 DC 09/27/20 18:30 Divalproex Sodium (Depakote Sprinkles) 125 mg 0900,1700 PO 09/28/20 17:00 10/12/20 17:08 DC 10/12/20 08:18 Furosemide (Lasix) 80 mg 1X ONCE PO 09/30/20 15:30 09/30/20 15:31 DC 09/30/20 16:00 Furosemide (Lasix) 80 mg DAILY PO 10/01/20 09:00 11/06/20 09:05 Potassium Chloride (Klor-Con) 20 meq DAILYWBKFT PO 10/01/20 08:00 11/06/20 09:05 Trazodone HCl (Desyrel) 50 mg PRN QHS PRN PO INSOMNIA 10/08/20 16:15 10/09/20 20:15 Divalproex Sodium (Depakote Sprinkles) 125 mg 0900,1300,1700,2100 PO 10/12/20 17:50 10/21/20 17:01 DC 10/21/20 12:26 Divalproex Sodium (Depakote Sprinkles) 125 mg 1300,1700 PO 10/21/20 17:00 10/25/20 17:17 DC 10/25/20 15:29 Divalproex Sodium (Depakote Sprinkles) 250 mg 0900,2100 PO 10/21/20 21:00 10/25/20 17:17 DC 10/25/20 09:09 Divalproex Sodium (Depakote Sprinkles) 250 mg QID PO 10/25/20 17:15 11/06/20 20:12 I have reviewed the current psychotropics carefully including drug interactions. Risk benefit ratio favors no change other than as noted in my dictated progress note. Diagnosis: Problems: (1) Impulse control disorder, unspecified (2) Anxiety disorder, unspecified (3) Dementia, vascular, with depression (4) Dementia, vascular, with delusions (5) Dementia in Alzheimer's disease with depression (6) Dementia in Alzheimer's disease with delusions (7) Dementia of the Alzheimer's type with early onset with behavioral disturbance (8) Major neurocognitive disorder VERENA AGUSTIN MD Nov 06, 2020 21:55
[2020-11-07] MEDS: ACETAMINOPHEN 325 MG TABLET PO PRN (01:06)
[2020-11-07 05:35] VITALS: BP 128/87
[2020-11-07] MEDS: POTASSIUM CHLORIDE 20 MEQ TABLET.ER. PO SCH (08:18)
[2020-11-07] MEDS: CETIRIZINE HCL 10 MG TABLET PO SCH (08:18)
[2020-11-07] MEDS: ASPIRIN CHEWABLE 81 MG TABLET. PO SCH (08:18)
[2020-11-07] MEDS: OMEGA-3 FATTY ACIDS/FISH OIL 1,000 MG CAPSULE. PO SCH (08:19)
[2020-11-07] MEDS: MULTIVITAMIN with MINERAL TABLET. PO SCH (08:19)
[2020-11-07] MEDS: PANTOPRAZOLE 40 MG TABLET. PO SCH (08:19)
[2020-11-07] MEDS: FUROSEMIDE 40 MG TABLET PO SCH (08:19)
[2020-11-07] MEDS: DIVALPROEX 125 MG CAP.SPRINK PO SCH ×4 (08:19→21:29)
--- NOTE | 2020-11-07 08:57 | PDOC ---
Exam Note: Fercho Note: This note is a late entry for 11/05/2020 covers elements not covered in my initial note. Subjective: The patient was seen individually in the evening of 11/05/2020 with Spring ABREU, discussed and reviewed the chart. He slept 4-1/4 hours previous night. The patient fell and hit the back of his head previous night. He has a bruise there and a laceration. Neuro checks have been unremarkable. Dr. Rosado is monitoring this. He is otherwise confused, pleasant, smiling as I met with him. Review of Systems: No CV, , pulmonary, eye, ENT system symptoms on review. Mental Status Exam: The patient is oriented to himself. Insight and judgment, recent and remote memory, attention and concentration, fund of knowledge is poor consistent with his diagnoses. As I was talking to him he started walking away oblivious of our interaction. Laboratory Data: Reviewed. Impression: Major neurocognitive disorder Alzheimer vascular with delusion, depression, behavioral disturbance. Anxiety disorder unspecified. Impulse control disorder unspecified. Plan: No change from initial note. Assessment: Vital Signs/I&O: Vital Signs Date Time Temp Pulse Resp B/P (MAP) Pulse Ox O2 Delivery O2 Flow Rate FiO2 11/07/20 05:35 97.7 70 16 128/87 (101) 98 11/06/20 15:57 Room Air I & O 11/06/20 11/06/20 11/07/20 15:00 23:00 07:00 Intake Total 480 ml 120 ml Balance 480 ml 120 ml Labs: Laboratory Tests Test 11/06/20 10:30 White Blood Count 7.8 x10^3/uL (4.0-11.0) Red Blood Count 4.62 x10^6/uL (4.30-5.70) Hemoglobin 13.4 g/dL (13.0-17.5) Hematocrit 41.1 % (39.0-53.0) Mean Corpuscular Volume 89 fL (79-100) Mean Corpuscular Hemoglobin 29 pg (25-35) Mean Corpuscular Hemoglobin Concent 33 g/dL (31-37) Red Cell Distribution Width 14.7 % (11.5-14.5) H Platelet Count 178 x10^3/uL (140-400) Neutrophils (%) (Auto) 72 % (31-73) Lymphocytes (%) (Auto) 16 % (24-48) L Monocytes (%) (Auto) 10 % (0-9) H Eosinophils (%) (Auto) 2 % (0-3) Basophils (%) (Auto) 1 % (0-3) Neutrophils # (Auto) 5.6 x10^3uL (1.8-7.7) Lymphocytes # (Auto) 1.2 x10^3/uL (1.0-4.8) Monocytes # (Auto) 0.8 x10^3/uL (0.0-1.1) Eosinophils # (Auto) 0.2 x10^3/uL (0.0-0.7) Basophils # (Auto) 0.1 x10^3/uL (0.0-0.2) Sodium Level 138 mmol/L (136-145) Potassium Level 4.0 mmol/L (3.5-5.1) Chloride Level 105 mmol/L (98-107) Carbon Dioxide Level 28 mmol/L (21-32) Anion Gap 5 (6-14) L Blood Urea Nitrogen 40 mg/dL (8-26) H Creatinine 1.8 mg/dL (0.7-1.3) H Estimated GFR (Cockcroft-Gault) 37.2 BUN/Creatinine Ratio 22 (6-20) H Glucose Level 120 mg/dL (70-99) H Calcium Level 8.7 mg/dL (8.5-10.1) Total Bilirubin 1.0 mg/dL (0.2-1.0) Aspartate Amino Transferase (AST) 29 U/L (15-37) Alanine Aminotransferase (ALT) 29 U/L (16-63) Alkaline Phosphatase 58 U/L (46-116) Total Protein 6.7 g/dL (6.4-8.2) Albumin 3.6 g/dL (3.4-5.0) Albumin/Globulin Ratio 1.2 (1.0-1.7) Current Medications: Meds: Laboratory Tests Test 11/06/20 10:30 White Blood Count 7.8 x10^3/uL Red Blood Count 4.62 x10^6/uL Hemoglobin 13.4 g/dL Hematocrit 41.1 % Mean Corpuscular Volume 89 fL Mean Corpuscular Hemoglobin 29 pg Mean Corpuscular Hemoglobin Concent 33 g/dL Red Cell Distribution Width 14.7 % Platelet Count 178 x10^3/uL Neutrophils (%) (Auto) 72 % Lymphocytes (%) (Auto) 16 % Monocytes (%) (Auto) 10 % Eosinophils (%) (Auto) 2 % Basophils (%) (Auto) 1 % Neutrophils # (Auto) 5.6 x10^3uL Lymphocytes # (Auto) 1.2 x10^3/uL Monocytes # (Auto) 0.8 x10^3/uL Eosinophils # (Auto) 0.2 x10^3/uL Basophils # (Auto) 0.1 x10^3/uL Sodium Level 138 mmol/L Potassium Level 4.0 mmol/L Chloride Level 105 mmol/L Carbon Dioxide Level 28 mmol/L Anion Gap 5 Blood Urea Nitrogen 40 mg/dL Creatinine 1.8 mg/dL Estimated GFR (Cockcroft-Gault) 37.2 BUN/Creatinine Ratio 22 Glucose Level 120 mg/dL Calcium Level 8.7 mg/dL Total Bilirubin 1.0 mg/dL Aspartate Amino Transf (AST/SGOT) 29 U/L Alanine Aminotransferase (ALT/SGPT) 29 U/L Alkaline Phosphatase 58 U/L Total Protein 6.7 g/dL Albumin 3.6 g/dL Albumin/Globulin Ratio 1.2 Current Medications Medications (Trade) Dose Ordered Sig/Ashvin Route PRN Reason Start Time Stop Time Status Last Admin Dose Admin Acetaminophen (Tylenol) 650 mg PRN Q6HRS PRN PO MILD PAIN / TEMP > 100.3'F 08/24/20 18:15 11/07/20 01:06 Multi-Ingredient Ointment (Analgesic [place]) 1 césar PRN QID PRN TP MUSCLE PAIN 08/24/20 18:15 Al Hydroxide/Mg Hydroxide (Mylanta Plus Xs) 15 ml PRN AFTMEALHC PRN PO DYSPEPSIA 08/24/20 18:15 Magnesium Hydroxide (Milk Of Magnesia) 2,400 mg PRN QHS PRN PO CONSTIPATION 08/24/20 18:15 Aspirin (Aspirin Chewable) 81 mg DAILY PO 08/25/20 09:00 11/07/20 08:18 Cetirizine HCl (ZyrTEC) 10 mg DAILY08 PO 08/25/20 08:00 11/07/20 08:18 Donepezil HCl (Aricept) 23 mg QHS PO 08/24/20 21:00 08/28/20 15:38 DC 08/27/20 20:34 Fluoxetine HCl (PROzac) 20 mg DAILY PO 08/25/20 09:00 11/07/20 08:19 Lorazepam (Ativan) 1 mg PRN Q4HRS PRN PO ANXIETY / AGITATION 08/24/20 18:45 09/04/20 16:12 DC 09/04/20 01:29 Atorvastatin Calcium (Lipitor) 40 mg QHS PO 08/24/20 21:00 11/06/20 20:12 Pantoprazole Sodium (Protonix) 40 mg DAILY08 PO 08/25/20 08:00 11/07/20 08:19 Multivitamins/ Calcium (Thera-M Plus) 1 tab DAILY PO 08/25/20 09:00 11/07/20 08:19 Mupirocin (Bactroban) 1 césar BID92 TP 08/25/20 09:00 09/03/20 12:35 DC 09/01/20 14:00 Fish Oil (Fish Oil) 1,000 mg DAILY PO 08/25/20 09:00 11/07/20 08:19 Olanzapine (ZyPREXA ZYDIS) 2.5 mg PRN Q2HR PRN PO PSYCHOSIS 08/24/20 19:45 10/25/20 15:29 Sertraline HCl (Zoloft) 25 mg DAILY PO 08/26/20 09:00 08/28/20 21:00 DC 08/28/20 08:37 Sertraline HCl (Zoloft) 50 mg DAILY PO 08/29/20 09:00 09/06/20 18:40 DC 09/04/20 08:58 Tamsulosin HCl (Flomax) 0.4 mg QHS PO 08/28/20 21:00 11/06/20 20:12 Mupirocin (Bactroban) 1 césar PRN BID PRN TP RASH 09/03/20 12:45 Diphenhydramine HCl (Benadryl) 50 mg 1X ONCE PO 09/04/20 21:00 09/04/20 21:01 DC 09/04/20 21:21 Olanzapine (ZyPREXA ZYDIS) 5 mg 1X ONCE PO 09/27/20 18:30 09/27/20 18:31 DC 09/27/20 18:30 Divalproex Sodium (Depakote Sprinkles) 125 mg 0900,1700 PO 09/28/20 17:00 10/12/20 17:08 DC 10/12/20 08:18 Furosemide (Lasix) 80 mg 1X ONCE PO 09/30/20 15:30 09/30/20 15:31 DC 09/30/20 16:00 Furosemide (Lasix) 80 mg DAILY PO 10/01/20 09:00 11/07/20 08:19 Potassium Chloride (Klor-Con) 20 meq DAILYWBKFT PO 10/01/20 08:00 11/07/20 08:18 Trazodone HCl (Desyrel) 50 mg PRN QHS PRN PO INSOMNIA 10/08/20 16:15 10/09/20 20:15 Divalproex Sodium (Depakote Sprinkles) 125 mg 0900,1300,1700,2100 PO 10/12/20 17:50 10/21/20 17:01 DC 10/21/20 12:26 Divalproex Sodium (Depakote Sprinkles) 125 mg 1300,1700 PO 10/21/20 17:00 10/25/20 17:17 DC 10/25/20 15:29 Divalproex Sodium (Depakote Sprinkles) 250 mg 0900,2100 PO 10/21/20 21:00 10/25/20 17:17 DC 10/25/20 09:09 Divalproex Sodium (Depakote Sprinkles) 250 mg QID PO 10/25/20 17:15 11/07/20 08:19 I have reviewed the current psychotropics carefully including drug interactions. Risk benefit ratio favors no change other than as noted in my dictated progress note. Diagnosis: Problems: (1) Impulse control disorder, unspecified (2) Anxiety disorder, unspecified (3) Dementia, vascular, with depression (4) Dementia, vascular, with delusions (5) Dementia in Alzheimer's disease with depression (6) Dementia in Alzheimer's disease with delusions (7) Dementia of the Alzheimer's type with early onset with behavioral disturbance (8) Major neurocognitive disorder VERENA AGUSTIN MD Nov 07, 2020 08:57
--- NOTE | 2020-11-07 09:29 | PDOC ---
Exam Note: Fercho Note: This note is a late entry for 11/06/2020 covers elements not covered in my initial note. Subjective: The patient was seen individually in the evening of 11/06/2020 with Jose ABREU, discussed and reviewed the chart. He slept 10 hours previous night. The patients CT head was negative status post fall and laceration on his scalp. Oral intake is slightly poor. BUN is 40, creatinine 1.8. We will defer to Dr. Rosado. He remains confused, perhaps little more than a few days back but pleasant, cooperative, not agitated or aggressive. Review of Systems: No CV, , pulmonary, eye, ENT system symptoms on review. Mental Status Exam: The patient is oriented to himself. Insight and judgment, recent and remote memory, attention and concentration, fund of knowledge is poor consistent with his diagnoses. Laboratory Data: Reviewed. Impression: Major neurocognitive disorder Alzheimer vascular with delusion, depression, behavioral disturbance. Anxiety disorder unspecified. Impulse control disorder unspecified. Plan: No change from initial note. Assessment: Vital Signs/I&O: Vital Signs Date Time Temp Pulse Resp B/P (MAP) Pulse Ox O2 Delivery O2 Flow Rate FiO2 11/07/20 05:35 97.7 70 16 128/87 (101) 98 11/06/20 15:57 Room Air I & O 11/06/20 11/06/20 11/07/20 15:00 23:00 07:00 Intake Total 480 ml 120 ml Balance 480 ml 120 ml Labs: Laboratory Tests Test 11/06/20 10:30 White Blood Count 7.8 x10^3/uL (4.0-11.0) Red Blood Count 4.62 x10^6/uL (4.30-5.70) Hemoglobin 13.4 g/dL (13.0-17.5) Hematocrit 41.1 % (39.0-53.0) Mean Corpuscular Volume 89 fL (79-100) Mean Corpuscular Hemoglobin 29 pg (25-35) Mean Corpuscular Hemoglobin Concent 33 g/dL (31-37) Red Cell Distribution Width 14.7 % (11.5-14.5) H Platelet Count 178 x10^3/uL (140-400) Neutrophils (%) (Auto) 72 % (31-73) Lymphocytes (%) (Auto) 16 % (24-48) L Monocytes (%) (Auto) 10 % (0-9) H Eosinophils (%) (Auto) 2 % (0-3) Basophils (%) (Auto) 1 % (0-3) Neutrophils # (Auto) 5.6 x10^3uL (1.8-7.7) Lymphocytes # (Auto) 1.2 x10^3/uL (1.0-4.8) Monocytes # (Auto) 0.8 x10^3/uL (0.0-1.1) Eosinophils # (Auto) 0.2 x10^3/uL (0.0-0.7) Basophils # (Auto) 0.1 x10^3/uL (0.0-0.2) Sodium Level 138 mmol/L (136-145) Potassium Level 4.0 mmol/L (3.5-5.1) Chloride Level 105 mmol/L (98-107) Carbon Dioxide Level 28 mmol/L (21-32) Anion Gap 5 (6-14) L Blood Urea Nitrogen 40 mg/dL (8-26) H Creatinine 1.8 mg/dL (0.7-1.3) H Estimated GFR (Cockcroft-Gault) 37.2 BUN/Creatinine Ratio 22 (6-20) H Glucose Level 120 mg/dL (70-99) H Calcium Level 8.7 mg/dL (8.5-10.1) Total Bilirubin 1.0 mg/dL (0.2-1.0) Aspartate Amino Transferase (AST) 29 U/L (15-37) Alanine Aminotransferase (ALT) 29 U/L (16-63) Alkaline Phosphatase 58 U/L (46-116) Total Protein 6.7 g/dL (6.4-8.2) Albumin 3.6 g/dL (3.4-5.0) Albumin/Globulin Ratio 1.2 (1.0-1.7) Current Medications: Meds: Laboratory Tests Test 11/06/20 10:30 White Blood Count 7.8 x10^3/uL Red Blood Count 4.62 x10^6/uL Hemoglobin 13.4 g/dL Hematocrit 41.1 % Mean Corpuscular Volume 89 fL Mean Corpuscular Hemoglobin 29 pg Mean Corpuscular Hemoglobin Concent 33 g/dL Red Cell Distribution Width 14.7 % Platelet Count 178 x10^3/uL Neutrophils (%) (Auto) 72 % Lymphocytes (%) (Auto) 16 % Monocytes (%) (Auto) 10 % Eosinophils (%) (Auto) 2 % Basophils (%) (Auto) 1 % Neutrophils # (Auto) 5.6 x10^3uL Lymphocytes # (Auto) 1.2 x10^3/uL Monocytes # (Auto) 0.8 x10^3/uL Eosinophils # (Auto) 0.2 x10^3/uL Basophils # (Auto) 0.1 x10^3/uL Sodium Level 138 mmol/L Potassium Level 4.0 mmol/L Chloride Level 105 mmol/L Carbon Dioxide Level 28 mmol/L Anion Gap 5 Blood Urea Nitrogen 40 mg/dL Creatinine 1.8 mg/dL Estimated GFR (Cockcroft-Gault) 37.2 BUN/Creatinine Ratio 22 Glucose Level 120 mg/dL Calcium Level 8.7 mg/dL Total Bilirubin 1.0 mg/dL Aspartate Amino Transf (AST/SGOT) 29 U/L Alanine Aminotransferase (ALT/SGPT) 29 U/L Alkaline Phosphatase 58 U/L Total Protein 6.7 g/dL Albumin 3.6 g/dL Albumin/Globulin Ratio 1.2 Current Medications Medications (Trade) Dose Ordered Sig/Ashvin Route PRN Reason Start Time Stop Time Status Last Admin Dose Admin Acetaminophen (Tylenol) 650 mg PRN Q6HRS PRN PO MILD PAIN / TEMP > 100.3'F 08/24/20 18:15 11/07/20 01:06 Multi-Ingredient Ointment (Analgesic [place]) 1 césar PRN QID PRN TP MUSCLE PAIN 08/24/20 18:15 Al Hydroxide/Mg Hydroxide (Mylanta Plus Xs) 15 ml PRN AFTMEALHC PRN PO DYSPEPSIA 08/24/20 18:15 Magnesium Hydroxide (Milk Of Magnesia) 2,400 mg PRN QHS PRN PO CONSTIPATION 08/24/20 18:15 Aspirin (Aspirin Chewable) 81 mg DAILY PO 08/25/20 09:00 11/07/20 08:18 Cetirizine HCl (ZyrTEC) 10 mg DAILY08 PO 08/25/20 08:00 11/07/20 08:18 Donepezil HCl (Aricept) 23 mg QHS PO 08/24/20 21:00 08/28/20 15:38 DC 08/27/20 20:34 Fluoxetine HCl (PROzac) 20 mg DAILY PO 08/25/20 09:00 11/07/20 08:19 Lorazepam (Ativan) 1 mg PRN Q4HRS PRN PO ANXIETY / AGITATION 08/24/20 18:45 09/04/20 16:12 DC 09/04/20 01:29 Atorvastatin Calcium (Lipitor) 40 mg QHS PO 08/24/20 21:00 11/06/20 20:12 Pantoprazole Sodium (Protonix) 40 mg DAILY08 PO 08/25/20 08:00 11/07/20 08:19 Multivitamins/ Calcium (Thera-M Plus) 1 tab DAILY PO 08/25/20 09:00 11/07/20 08:19 Mupirocin (Bactroban) 1 césar BID92 TP 08/25/20 09:00 09/03/20 12:35 DC 09/01/20 14:00 Fish Oil (Fish Oil) 1,000 mg DAILY PO 08/25/20 09:00 11/07/20 08:19 Olanzapine (ZyPREXA ZYDIS) 2.5 mg PRN Q2HR PRN PO PSYCHOSIS 08/24/20 19:45 10/25/20 15:29 Sertraline HCl (Zoloft) 25 mg DAILY PO 08/26/20 09:00 08/28/20 21:00 DC 08/28/20 08:37 Sertraline HCl (Zoloft) 50 mg DAILY PO 08/29/20 09:00 09/06/20 18:40 DC 09/04/20 08:58 Tamsulosin HCl (Flomax) 0.4 mg QHS PO 08/28/20 21:00 11/06/20 20:12 Mupirocin (Bactroban) 1 césar PRN BID PRN TP RASH 09/03/20 12:45 Diphenhydramine HCl (Benadryl) 50 mg 1X ONCE PO 09/04/20 21:00 09/04/20 21:01 DC 09/04/20 21:21 Olanzapine (ZyPREXA ZYDIS) 5 mg 1X ONCE PO 09/27/20 18:30 09/27/20 18:31 DC 09/27/20 18:30 Divalproex Sodium (Depakote Sprinkles) 125 mg 0900,1700 PO 09/28/20 17:00 10/12/20 17:08 DC 10/12/20 08:18 Furosemide (Lasix) 80 mg 1X ONCE PO 09/30/20 15:30 09/30/20 15:31 DC 09/30/20 16:00 Furosemide (Lasix) 80 mg DAILY PO 10/01/20 09:00 11/07/20 08:19 Potassium Chloride (Klor-Con) 20 meq DAILYWBKFT PO 10/01/20 08:00 11/07/20 08:18 Trazodone HCl (Desyrel) 50 mg PRN QHS PRN PO INSOMNIA 10/08/20 16:15 10/09/20 20:15 Divalproex Sodium (Depakote Sprinkles) 125 mg 0900,1300,1700,2100 PO 10/12/20 17:50 10/21/20 17:01 DC 10/21/20 12:26 Divalproex Sodium (Depakote Sprinkles) 125 mg 1300,1700 PO 10/21/20 17:00 10/25/20 17:17 DC 10/25/20 15:29 Divalproex Sodium (Depakote Sprinkles) 250 mg 0900,2100 PO 10/21/20 21:00 10/25/20 17:17 DC 10/25/20 09:09 Divalproex Sodium (Depakote Sprinkles) 250 mg QID PO 10/25/20 17:15 11/07/20 08:19 I have reviewed the current psychotropics carefully including drug interactions. Risk benefit ratio favors no change other than as noted in my dictated progress note. Diagnosis: Problems: (1) Impulse control disorder, unspecified (2) Anxiety disorder, unspecified (3) Dementia, vascular, with depression (4) Dementia, vascular, with delusions (5) Dementia in Alzheimer's disease with depression (6) Dementia in Alzheimer's disease with delusions (7) Dementia of the Alzheimer's type with early onset with behavioral disturbance (8) Major neurocognitive disorder VERENA AGUSTIN MD Nov 07, 2020 09:29
[2020-11-07 16:08] VITALS: BP 127/67
[2020-11-07] MEDS: ATORVASTATIN CALCIUM 20 MG TABLET PO SCH (21:28)
[2020-11-07] MEDS: TAMSULOSIN 0.4 MG CAP.ER.24H. PO SCH (21:29)
[2020-11-07] MEDS: traZODone 50 MG TABLET. PO SCH (21:29)
--- NOTE | 2020-11-07 22:01 | PDOC ---
Exam Note: Fercho Note: Please also refer to the separate dictated note~for this date of service dictated separately.~Patient seen individually. Discussed the patient with Nursing staff reviewed the chart.~Reviewed interim history and current functioning. Reviewed vital signs,~Labs/ Radiology~and current medications noted below. Continue current treatment with the changes noted in the dictated addendum note Assessment: Vital Signs/I&O: Vital Signs Date Time Temp Pulse Resp B/P (MAP) Pulse Ox O2 Delivery O2 Flow Rate FiO2 11/07/20 16:08 97.7 79 18 127/67 (87) 93 11/06/20 15:57 Room Air I & O 11/06/20 11/06/20 11/07/20 15:00 23:00 07:00 Intake Total 480 ml 120 ml Balance 480 ml 120 ml Current Medications: Meds: Current Medications Medications (Trade) Dose Ordered Sig/Ashvin Route PRN Reason Start Time Stop Time Status Last Admin Dose Admin Acetaminophen (Tylenol) 650 mg PRN Q6HRS PRN PO MILD PAIN / TEMP > 100.3'F 08/24/20 18:15 11/07/20 01:06 Multi-Ingredient Ointment (Analgesic [place]) 1 césar PRN QID PRN TP MUSCLE PAIN 08/24/20 18:15 Al Hydroxide/Mg Hydroxide (Mylanta Plus Xs) 15 ml PRN AFTMEALHC PRN PO DYSPEPSIA 08/24/20 18:15 Magnesium Hydroxide (Milk Of Magnesia) 2,400 mg PRN QHS PRN PO CONSTIPATION 08/24/20 18:15 Aspirin (Aspirin Chewable) 81 mg DAILY PO 08/25/20 09:00 11/07/20 08:18 Cetirizine HCl (ZyrTEC) 10 mg DAILY08 PO 08/25/20 08:00 11/07/20 08:18 Donepezil HCl (Aricept) 23 mg QHS PO 08/24/20 21:00 08/28/20 15:38 DC 08/27/20 20:34 Fluoxetine HCl (PROzac) 20 mg DAILY PO 08/25/20 09:00 11/07/20 08:19 Lorazepam (Ativan) 1 mg PRN Q4HRS PRN PO ANXIETY / AGITATION 08/24/20 18:45 09/04/20 16:12 DC 09/04/20 01:29 Atorvastatin Calcium (Lipitor) 40 mg QHS PO 08/24/20 21:00 11/07/20 21:28 Pantoprazole Sodium (Protonix) 40 mg DAILY08 PO 08/25/20 08:00 11/07/20 08:19 Multivitamins/ Calcium (Thera-M Plus) 1 tab DAILY PO 08/25/20 09:00 11/07/20 08:19 Mupirocin (Bactroban) 1 césar BID92 TP 08/25/20 09:00 09/03/20 12:35 DC 09/01/20 14:00 Fish Oil (Fish Oil) 1,000 mg DAILY PO 08/25/20 09:00 11/07/20 08:19 Olanzapine (ZyPREXA ZYDIS) 2.5 mg PRN Q2HR PRN PO PSYCHOSIS 08/24/20 19:45 10/25/20 15:29 Sertraline HCl (Zoloft) 25 mg DAILY PO 08/26/20 09:00 08/28/20 21:00 DC 08/28/20 08:37 Sertraline HCl (Zoloft) 50 mg DAILY PO 08/29/20 09:00 09/06/20 18:40 DC 09/04/20 08:58 Tamsulosin HCl (Flomax) 0.4 mg QHS PO 08/28/20 21:00 11/07/20 21:29 Mupirocin (Bactroban) 1 césar PRN BID PRN TP RASH 09/03/20 12:45 Diphenhydramine HCl (Benadryl) 50 mg 1X ONCE PO 09/04/20 21:00 09/04/20 21:01 DC 09/04/20 21:21 Olanzapine (ZyPREXA ZYDIS) 5 mg 1X ONCE PO 09/27/20 18:30 09/27/20 18:31 DC 09/27/20 18:30 Divalproex Sodium (Depakote Sprinkles) 125 mg 0900,1700 PO 09/28/20 17:00 10/12/20 17:08 DC 10/12/20 08:18 Furosemide (Lasix) 80 mg 1X ONCE PO 09/30/20 15:30 09/30/20 15:31 DC 09/30/20 16:00 Furosemide (Lasix) 80 mg DAILY PO 10/01/20 09:00 11/07/20 08:19 Potassium Chloride (Klor-Con) 20 meq DAILYWBKFT PO 10/01/20 08:00 11/07/20 08:18 Trazodone HCl (Desyrel) 50 mg PRN QHS PRN PO INSOMNIA 10/08/20 16:15 11/07/20 18:18 DC 10/09/20 20:15 Divalproex Sodium (Depakote Sprinkles) 125 mg 0900,1300,1700,2100 PO 10/12/20 17:50 10/21/20 17:01 DC 10/21/20 12:26 Divalproex Sodium (Depakote Sprinkles) 125 mg 1300,1700 PO 10/21/20 17:00 10/25/20 17:17 DC 10/25/20 15:29 Divalproex Sodium (Depakote Sprinkles) 250 mg 0900,2100 PO 10/21/20 21:00 10/25/20 17:17 DC 10/25/20 09:09 Divalproex Sodium (Depakote Sprinkles) 250 mg QID PO 10/25/20 17:15 11/07/20 21:29 Trazodone HCl (Desyrel) 50 mg HS PO 11/07/20 21:00 11/07/20 21:29 Current Medications Medications (Trade) Dose Ordered Sig/Ashvin Route PRN Reason Start Time Stop Time Status Last Admin Dose Admin Trazodone HCl (Desyrel) 50 mg HS PO 11/07/20 21:00 11/07/20 21:29 I have reviewed the current psychotropics carefully including drug interactions. Risk benefit ratio favors no change other than as noted in my dictated progress note. Diagnosis: Problems: (1) Impulse control disorder, unspecified (2) Anxiety disorder, unspecified (3) Dementia, vascular, with depression (4) Dementia, vascular, with delusions (5) Dementia in Alzheimer's disease with depression (6) Dementia in Alzheimer's disease with delusions (7) Dementia of the Alzheimer's type with early onset with behavioral disturbance (8) Major neurocognitive disorder VERENA AGUSTIN MD Nov 07, 2020 22:01
[2020-11-08 06:00] VITALS: BP 101/68
[2020-11-08] MEDS: DIVALPROEX 125 MG CAP.SPRINK PO SCH ×4 (08:39→20:35)
[2020-11-08] MEDS: FUROSEMIDE 40 MG TABLET PO SCH (08:39)
[2020-11-08] MEDS: OMEGA-3 FATTY ACIDS/FISH OIL 1,000 MG CAPSULE. PO SCH (08:40)
[2020-11-08] MEDS: ASPIRIN CHEWABLE 81 MG TABLET. PO SCH (08:40)
[2020-11-08] MEDS: MULTIVITAMIN with MINERAL TABLET. PO SCH (08:40)
[2020-11-08] MEDS: PANTOPRAZOLE 40 MG TABLET. PO SCH (08:40)
[2020-11-08] MEDS: CETIRIZINE HCL 10 MG TABLET PO SCH (08:40)
[2020-11-08] MEDS: POTASSIUM CHLORIDE 20 MEQ TABLET.ER. PO SCH (08:40)
[2020-11-08 15:31] VITALS: BP 92/64
[2020-11-08] MEDS: TAMSULOSIN 0.4 MG CAP.ER.24H. PO SCH (20:34)
[2020-11-08] MEDS: traZODone 50 MG TABLET. PO SCH (20:34)
[2020-11-08] MEDS: ATORVASTATIN CALCIUM 20 MG TABLET PO SCH (20:34)
--- NOTE | 2020-11-08 21:53 | PDOC ---
Exam Note: Fercho Note: Please also refer to the separate dictated note~for this date of service dictated separately.~Patient seen individually. Discussed the patient with Nursing staff reviewed the chart.~Reviewed interim history and current functioning. Reviewed vital signs,~Labs/ Radiology~and current medications noted below. Continue current treatment with the changes noted in the dictated addendum note Assessment: Vital Signs/I&O: Vital Signs Date Time Temp Pulse Resp B/P (MAP) Pulse Ox O2 Delivery O2 Flow Rate FiO2 11/08/20 15:31 98.4 92 16 92/64 (73) 93 11/08/20 06:00 Room Air I & O 11/07/20 11/07/20 11/08/20 15:00 23:00 07:00 Intake Total 840 ml 0 ml Output Total 950 ml Balance 840 ml -950 ml Current Medications: Meds: Current Medications Medications (Trade) Dose Ordered Sig/Ashvin Route PRN Reason Start Time Stop Time Status Last Admin Dose Admin Acetaminophen (Tylenol) 650 mg PRN Q6HRS PRN PO MILD PAIN / TEMP > 100.3'F 08/24/20 18:15 11/07/20 01:06 Multi-Ingredient Ointment (Analgesic [place]) 1 césar PRN QID PRN TP MUSCLE PAIN 08/24/20 18:15 Al Hydroxide/Mg Hydroxide (Mylanta Plus Xs) 15 ml PRN AFTMEALHC PRN PO DYSPEPSIA 08/24/20 18:15 Magnesium Hydroxide (Milk Of Magnesia) 2,400 mg PRN QHS PRN PO CONSTIPATION 08/24/20 18:15 Aspirin (Aspirin Chewable) 81 mg DAILY PO 08/25/20 09:00 11/08/20 08:40 Cetirizine HCl (ZyrTEC) 10 mg DAILY08 PO 08/25/20 08:00 11/08/20 08:40 Donepezil HCl (Aricept) 23 mg QHS PO 08/24/20 21:00 08/28/20 15:38 DC 08/27/20 20:34 Fluoxetine HCl (PROzac) 20 mg DAILY PO 08/25/20 09:00 11/08/20 08:39 Lorazepam (Ativan) 1 mg PRN Q4HRS PRN PO ANXIETY / AGITATION 08/24/20 18:45 09/04/20 16:12 DC 09/04/20 01:29 Atorvastatin Calcium (Lipitor) 40 mg QHS PO 08/24/20 21:00 11/08/20 20:34 Pantoprazole Sodium (Protonix) 40 mg DAILY08 PO 08/25/20 08:00 11/08/20 08:40 Multivitamins/ Calcium (Thera-M Plus) 1 tab DAILY PO 08/25/20 09:00 11/08/20 08:40 Mupirocin (Bactroban) 1 césar BID92 TP 08/25/20 09:00 09/03/20 12:35 DC 09/01/20 14:00 Fish Oil (Fish Oil) 1,000 mg DAILY PO 08/25/20 09:00 11/08/20 18:17 DC 11/07/20 08:19 Olanzapine (ZyPREXA ZYDIS) 2.5 mg PRN Q2HR PRN PO PSYCHOSIS 08/24/20 19:45 10/25/20 15:29 Sertraline HCl (Zoloft) 25 mg DAILY PO 08/26/20 09:00 08/28/20 21:00 DC 08/28/20 08:37 Sertraline HCl (Zoloft) 50 mg DAILY PO 08/29/20 09:00 09/06/20 18:40 DC 09/04/20 08:58 Tamsulosin HCl (Flomax) 0.4 mg QHS PO 08/28/20 21:00 11/08/20 20:34 Mupirocin (Bactroban) 1 césar PRN BID PRN TP RASH 09/03/20 12:45 Diphenhydramine HCl (Benadryl) 50 mg 1X ONCE PO 09/04/20 21:00 09/04/20 21:01 DC 09/04/20 21:21 Olanzapine (ZyPREXA ZYDIS) 5 mg 1X ONCE PO 09/27/20 18:30 09/27/20 18:31 DC 09/27/20 18:30 Divalproex Sodium (Depakote Sprinkles) 125 mg 0900,1700 PO 09/28/20 17:00 10/12/20 17:08 DC 10/12/20 08:18 Furosemide (Lasix) 80 mg 1X ONCE PO 09/30/20 15:30 09/30/20 15:31 DC 09/30/20 16:00 Furosemide (Lasix) 80 mg DAILY PO 10/01/20 09:00 11/08/20 18:17 DC 11/08/20 08:39 Potassium Chloride (Klor-Con) 20 meq DAILYWBKFT PO 10/01/20 08:00 11/08/20 08:40 Trazodone HCl (Desyrel) 50 mg PRN QHS PRN PO INSOMNIA 10/08/20 16:15 11/07/20 18:18 DC 10/09/20 20:15 Divalproex Sodium (Depakote Sprinkles) 125 mg 0900,1300,1700,2100 PO 10/12/20 17:50 10/21/20 17:01 DC 10/21/20 12:26 Divalproex Sodium (Depakote Sprinkles) 125 mg 1300,1700 PO 10/21/20 17:00 10/25/20 17:17 DC 10/25/20 15:29 Divalproex Sodium (Depakote Sprinkles) 250 mg 0900,2100 PO 10/21/20 21:00 10/25/20 17:17 DC 10/25/20 09:09 Divalproex Sodium (Depakote Sprinkles) 250 mg QID PO 10/25/20 17:15 11/08/20 20:35 Trazodone HCl (Desyrel) 50 mg HS PO 11/07/20 21:00 11/08/20 20:34 Furosemide (Lasix) 40 mg DAILY PO 11/09/20 09:00 I have reviewed the current psychotropics carefully including drug interactions. Risk benefit ratio favors no change other than as noted in my dictated progress note. Diagnosis: Problems: (1) Impulse control disorder, unspecified (2) Anxiety disorder, unspecified (3) Dementia, vascular, with depression (4) Dementia, vascular, with delusions (5) Dementia in Alzheimer's disease with depression (6) Dementia in Alzheimer's disease with delusions (7) Dementia of the Alzheimer's type with early onset with behavioral disturbance (8) Major neurocognitive disorder VERENA AGUSTIN MD Nov 08, 2020 21:52
[2020-11-09 06:09] VITALS: BP 110/67
--- NOTE | 2020-11-09 08:14 | PDOC ---
Exam Note: Fercho Note: This note is a late entry for 11/07/2020 covers elements not covered in my initial note. Subjective: The patient was seen individually in the evening of 11/07/2020 with Spring ABREU, discussed and reviewed the chart. He slept 1-1/4 hours previous night. Previous night the patient was quite restless, irritable, angry and aggressive. It was unclear why he got more labile but today he has done well. He was having trouble sleeping at night and as the staff encouraged him to go to bed he was resisting that which might have been what started it all last night. We will change the trazodone h.s. to schedule rather than p.r.n. to help with insomnia. I met with him in his room. He remains confused, pleasant, interactive, smiling, oblivious to his situation. Review of Systems: No CV, , pulmonary, eye, ENT system symptoms on review. Mental Status Exam: The patient is oriented to himself. Insight and judgment, recent and remote memory, attention and concentration, fund of knowledge is poor consistent with his diagnoses. Laboratory Data: Reviewed. Impression: Major neurocognitive disorder Alzheimer vascular with delusion, depression, behavioral disturbance. Anxiety disorder unspecified. Impulse control disorder unspecified. Plan: No change from initial note. Assessment: Vital Signs/I&O: Vital Signs Date Time Temp Pulse Resp B/P (MAP) Pulse Ox O2 Delivery O2 Flow Rate FiO2 11/09/20 06:09 98.2 61 16 110/67 (81) 100 11/08/20 06:00 Room Air I & O 11/08/20 11/08/20 11/09/20 15:00 23:00 07:00 Intake Total 1320 ml 720 ml Balance 1320 ml 720 ml Current Medications: Meds: Current Medications Medications (Trade) Dose Ordered Sig/Ashvin Route PRN Reason Start Time Stop Time Status Last Admin Dose Admin Acetaminophen (Tylenol) 650 mg PRN Q6HRS PRN PO MILD PAIN / TEMP > 100.3'F 08/24/20 18:15 11/07/20 01:06 Multi-Ingredient Ointment (Analgesic [place]) 1 césar PRN QID PRN TP MUSCLE PAIN 08/24/20 18:15 Al Hydroxide/Mg Hydroxide (Mylanta Plus Xs) 15 ml PRN AFTMEALHC PRN PO DYSPEPSIA 08/24/20 18:15 Magnesium Hydroxide (Milk Of Magnesia) 2,400 mg PRN QHS PRN PO CONSTIPATION 08/24/20 18:15 Aspirin (Aspirin Chewable) 81 mg DAILY PO 08/25/20 09:00 11/08/20 08:40 Cetirizine HCl (ZyrTEC) 10 mg DAILY08 PO 08/25/20 08:00 11/08/20 08:40 Donepezil HCl (Aricept) 23 mg QHS PO 08/24/20 21:00 08/28/20 15:38 DC 08/27/20 20:34 Fluoxetine HCl (PROzac) 20 mg DAILY PO 08/25/20 09:00 11/08/20 08:39 Lorazepam (Ativan) 1 mg PRN Q4HRS PRN PO ANXIETY / AGITATION 08/24/20 18:45 09/04/20 16:12 DC 09/04/20 01:29 Atorvastatin Calcium (Lipitor) 40 mg QHS PO 08/24/20 21:00 11/08/20 20:34 Pantoprazole Sodium (Protonix) 40 mg DAILY08 PO 08/25/20 08:00 11/08/20 08:40 Multivitamins/ Calcium (Thera-M Plus) 1 tab DAILY PO 08/25/20 09:00 11/08/20 08:40 Mupirocin (Bactroban) 1 césar BID92 TP 08/25/20 09:00 09/03/20 12:35 DC 09/01/20 14:00 Fish Oil (Fish Oil) 1,000 mg DAILY PO 08/25/20 09:00 11/08/20 18:17 DC 11/07/20 08:19 Olanzapine (ZyPREXA ZYDIS) 2.5 mg PRN Q2HR PRN PO PSYCHOSIS 08/24/20 19:45 10/25/20 15:29 Sertraline HCl (Zoloft) 25 mg DAILY PO 08/26/20 09:00 08/28/20 21:00 DC 08/28/20 08:37 Sertraline HCl (Zoloft) 50 mg DAILY PO 08/29/20 09:00 09/06/20 18:40 DC 09/04/20 08:58 Tamsulosin HCl (Flomax) 0.4 mg QHS PO 08/28/20 21:00 11/08/20 20:34 Mupirocin (Bactroban) 1 césar PRN BID PRN TP RASH 09/03/20 12:45 Diphenhydramine HCl (Benadryl) 50 mg 1X ONCE PO 09/04/20 21:00 09/04/20 21:01 DC 09/04/20 21:21 Olanzapine (ZyPREXA ZYDIS) 5 mg 1X ONCE PO 09/27/20 18:30 09/27/20 18:31 DC 09/27/20 18:30 Divalproex Sodium (Depakote Sprinkles) 125 mg 0900,1700 PO 09/28/20 17:00 10/12/20 17:08 DC 10/12/20 08:18 Furosemide (Lasix) 80 mg 1X ONCE PO 09/30/20 15:30 09/30/20 15:31 DC 09/30/20 16:00 Furosemide (Lasix) 80 mg DAILY PO 10/01/20 09:00 11/08/20 18:17 DC 11/08/20 08:39 Potassium Chloride (Klor-Con) 20 meq DAILYWBKFT PO 10/01/20 08:00 11/08/20 08:40 Trazodone HCl (Desyrel) 50 mg PRN QHS PRN PO INSOMNIA 10/08/20 16:15 11/07/20 18:18 DC 10/09/20 20:15 Divalproex Sodium (Depakote Sprinkles) 125 mg 0900,1300,1700,2100 PO 10/12/20 17:50 10/21/20 17:01 DC 10/21/20 12:26 Divalproex Sodium (Depakote Sprinkles) 125 mg 1300,1700 PO 10/21/20 17:00 10/25/20 17:17 DC 10/25/20 15:29 Divalproex Sodium (Depakote Sprinkles) 250 mg 0900,2100 PO 10/21/20 21:00 10/25/20 17:17 DC 10/25/20 09:09 Divalproex Sodium (Depakote Sprinkles) 250 mg QID PO 10/25/20 17:15 11/08/20 20:35 Trazodone HCl (Desyrel) 50 mg HS PO 11/07/20 21:00 11/08/20 20:34 Furosemide (Lasix) 40 mg DAILY PO 11/09/20 09:00 I have reviewed the current psychotropics carefully including drug interactions. Risk benefit ratio favors no change other than as noted in my dictated progress note. Diagnosis: Problems: (1) Impulse control disorder, unspecified (2) Anxiety disorder, unspecified (3) Dementia, vascular, with depression (4) Dementia, vascular, with delusions (5) Dementia in Alzheimer's disease with depression (6) Dementia in Alzheimer's disease with delusions (7) Dementia of the Alzheimer's type with early onset with behavioral disturbance (8) Major neurocognitive disorder VERENA AGUSTIN MD Nov 09, 2020 08:14
--- NOTE | 2020-11-09 08:45 | PDOC ---
Exam Note: Fercho Note: This note is a late entry for 11/08/2020 covers elements not covered in my initial note. Subjective: The patient was seen individually in the evening of 11/08/2020 with Tala ABREU, discussed and reviewed the chart. He slept 9-1/2 hours previous night. He often refuses medications and today he refused even with pudding. He took it later. He seemed to have decline in his ability to comprehend how to eat and take his medications. Review of Systems: No CV, , pulmonary, eye, ENT system symptoms on review. Mental Status Exam: The patient is oriented to himself. Insight and judgment, recent and remote memory, attention and concentration, fund of knowledge is poor consistent with his diagnoses. Laboratory Data: Reviewed. Impression: Major neurocognitive disorder Alzheimer vascular with delusion, depression, behavioral disturbance. Anxiety disorder unspecified. Impulse control disorder unspecified. Plan: No change from initial note. Assessment: Vital Signs/I&O: Vital Signs Date Time Temp Pulse Resp B/P (MAP) Pulse Ox O2 Delivery O2 Flow Rate FiO2 11/09/20 06:09 98.2 61 16 110/67 (81) 100 11/08/20 06:00 Room Air I & O 11/08/20 11/08/20 11/09/20 15:00 23:00 07:00 Intake Total 1320 ml 720 ml Balance 1320 ml 720 ml Current Medications: Meds: Current Medications Medications (Trade) Dose Ordered Sig/Ashvin Route PRN Reason Start Time Stop Time Status Last Admin Dose Admin Acetaminophen (Tylenol) 650 mg PRN Q6HRS PRN PO MILD PAIN / TEMP > 100.3'F 08/24/20 18:15 11/07/20 01:06 Multi-Ingredient Ointment (Analgesic [place]) 1 césar PRN QID PRN TP MUSCLE PAIN 08/24/20 18:15 Al Hydroxide/Mg Hydroxide (Mylanta Plus Xs) 15 ml PRN AFTMEALHC PRN PO DYSPEPSIA 08/24/20 18:15 Magnesium Hydroxide (Milk Of Magnesia) 2,400 mg PRN QHS PRN PO CONSTIPATION 08/24/20 18:15 Aspirin (Aspirin Chewable) 81 mg DAILY PO 08/25/20 09:00 11/08/20 08:40 Cetirizine HCl (ZyrTEC) 10 mg DAILY08 PO 08/25/20 08:00 11/08/20 08:40 Donepezil HCl (Aricept) 23 mg QHS PO 08/24/20 21:00 08/28/20 15:38 DC 08/27/20 20:34 Fluoxetine HCl (PROzac) 20 mg DAILY PO 08/25/20 09:00 11/08/20 08:39 Lorazepam (Ativan) 1 mg PRN Q4HRS PRN PO ANXIETY / AGITATION 08/24/20 18:45 09/04/20 16:12 DC 09/04/20 01:29 Atorvastatin Calcium (Lipitor) 40 mg QHS PO 08/24/20 21:00 11/08/20 20:34 Pantoprazole Sodium (Protonix) 40 mg DAILY08 PO 08/25/20 08:00 11/08/20 08:40 Multivitamins/ Calcium (Thera-M Plus) 1 tab DAILY PO 08/25/20 09:00 11/08/20 08:40 Mupirocin (Bactroban) 1 césar BID92 TP 08/25/20 09:00 09/03/20 12:35 DC 09/01/20 14:00 Fish Oil (Fish Oil) 1,000 mg DAILY PO 08/25/20 09:00 11/08/20 18:17 DC 11/07/20 08:19 Olanzapine (ZyPREXA ZYDIS) 2.5 mg PRN Q2HR PRN PO PSYCHOSIS 08/24/20 19:45 10/25/20 15:29 Sertraline HCl (Zoloft) 25 mg DAILY PO 08/26/20 09:00 08/28/20 21:00 DC 08/28/20 08:37 Sertraline HCl (Zoloft) 50 mg DAILY PO 08/29/20 09:00 09/06/20 18:40 DC 09/04/20 08:58 Tamsulosin HCl (Flomax) 0.4 mg QHS PO 08/28/20 21:00 11/08/20 20:34 Mupirocin (Bactroban) 1 césar PRN BID PRN TP RASH 09/03/20 12:45 Diphenhydramine HCl (Benadryl) 50 mg 1X ONCE PO 09/04/20 21:00 09/04/20 21:01 DC 09/04/20 21:21 Olanzapine (ZyPREXA ZYDIS) 5 mg 1X ONCE PO 09/27/20 18:30 09/27/20 18:31 DC 09/27/20 18:30 Divalproex Sodium (Depakote Sprinkles) 125 mg 0900,1700 PO 09/28/20 17:00 10/12/20 17:08 DC 10/12/20 08:18 Furosemide (Lasix) 80 mg 1X ONCE PO 09/30/20 15:30 09/30/20 15:31 DC 09/30/20 16:00 Furosemide (Lasix) 80 mg DAILY PO 10/01/20 09:00 11/08/20 18:17 DC 11/08/20 08:39 Potassium Chloride (Klor-Con) 20 meq DAILYWBKFT PO 10/01/20 08:00 11/08/20 08:40 Trazodone HCl (Desyrel) 50 mg PRN QHS PRN PO INSOMNIA 10/08/20 16:15 11/07/20 18:18 DC 10/09/20 20:15 Divalproex Sodium (Depakote Sprinkles) 125 mg 0900,1300,1700,2100 PO 10/12/20 17:50 10/21/20 17:01 DC 10/21/20 12:26 Divalproex Sodium (Depakote Sprinkles) 125 mg 1300,1700 PO 10/21/20 17:00 10/25/20 17:17 DC 10/25/20 15:29 Divalproex Sodium (Depakote Sprinkles) 250 mg 0900,2100 PO 10/21/20 21:00 10/25/20 17:17 DC 10/25/20 09:09 Divalproex Sodium (Depakote Sprinkles) 250 mg QID PO 10/25/20 17:15 11/08/20 20:35 Trazodone HCl (Desyrel) 50 mg HS PO 11/07/20 21:00 11/08/20 20:34 Furosemide (Lasix) 40 mg DAILY PO 11/09/20 09:00 I have reviewed the current psychotropics carefully including drug interactions. Risk benefit ratio favors no change other than as noted in my dictated progress note. Diagnosis: Problems: (1) Impulse control disorder, unspecified (2) Anxiety disorder, unspecified (3) Dementia, vascular, with depression (4) Dementia, vascular, with delusions (5) Dementia in Alzheimer's disease with depression (6) Dementia in Alzheimer's disease with delusions (7) Dementia of the Alzheimer's type with early onset with behavioral disturban ce (8) Major neurocognitive disorder VERENA AGUSTIN MD Nov 09, 2020 08:45
[2020-11-09] MEDS: PANTOPRAZOLE 40 MG TABLET. PO SCH (08:58)
[2020-11-09] MEDS: FUROSEMIDE 40 MG TABLET PO SCH (08:58)
[2020-11-09] MEDS: ASPIRIN CHEWABLE 81 MG TABLET. PO SCH (08:58)
[2020-11-09] MEDS: DIVALPROEX 125 MG CAP.SPRINK PO SCH ×4 (08:58→20:13)
[2020-11-09] MEDS: POTASSIUM CHLORIDE 20 MEQ TABLET.ER. PO SCH (08:59)
[2020-11-09] MEDS: CETIRIZINE HCL 10 MG TABLET PO SCH (08:59)
[2020-11-09] MEDS: MULTIVITAMIN with MINERAL TABLET. PO SCH (08:59)
[2020-11-09 15:39] VITALS: BP 102/66
[2020-11-09] MEDS: TAMSULOSIN 0.4 MG CAP.ER.24H. PO SCH (20:13)
[2020-11-09] MEDS: traZODone 50 MG TABLET. PO SCH (20:13)
[2020-11-09] MEDS: ATORVASTATIN CALCIUM 20 MG TABLET PO SCH (20:13)
--- NOTE | 2020-11-09 22:20 | PDOC ---
Exam Note: Fercho Note: Please also refer to the separate dictated note~for this date of service dictated separately.~Patient seen individually. Discussed the patient with Nursing staff reviewed the chart.~Reviewed interim history and current functioning. Reviewed vital signs,~Labs/ Radiology~and current medications noted below. Continue current treatment with the changes noted in the dictated addendum note Assessment: Vital Signs/I&O: Vital Signs Date Time Temp Pulse Resp B/P (MAP) Pulse Ox O2 Delivery O2 Flow Rate FiO2 11/09/20 15:39 97.4 71 20 102/66 (78) 96 11/08/20 06:00 Room Air I & O 11/08/20 11/08/20 11/09/20 15:00 23:00 07:00 Intake Total 1320 ml 720 ml Balance 1320 ml 720 ml Current Medications: Meds: Current Medications Medications (Trade) Dose Ordered Sig/Ashvin Route PRN Reason Start Time Stop Time Status Last Admin Dose Admin Acetaminophen (Tylenol) 650 mg PRN Q6HRS PRN PO MILD PAIN / TEMP > 100.3'F 08/24/20 18:15 11/07/20 01:06 Multi-Ingredient Ointment (Analgesic [place]) 1 césar PRN QID PRN TP MUSCLE PAIN 08/24/20 18:15 Al Hydroxide/Mg Hydroxide (Mylanta Plus Xs) 15 ml PRN AFTMEALHC PRN PO DYSPEPSIA 08/24/20 18:15 Magnesium Hydroxide (Milk Of Magnesia) 2,400 mg PRN QHS PRN PO CONSTIPATION 08/24/20 18:15 Aspirin (Aspirin Chewable) 81 mg DAILY PO 08/25/20 09:00 11/09/20 08:58 Cetirizine HCl (ZyrTEC) 10 mg DAILY08 PO 08/25/20 08:00 11/09/20 08:59 Donepezil HCl (Aricept) 23 mg QHS PO 08/24/20 21:00 08/28/20 15:38 DC 08/27/20 20:34 Fluoxetine HCl (PROzac) 20 mg DAILY PO 08/25/20 09:00 11/09/20 08:59 Lorazepam (Ativan) 1 mg PRN Q4HRS PRN PO ANXIETY / AGITATION 08/24/20 18:45 09/04/20 16:12 DC 09/04/20 01:29 Atorvastatin Calcium (Lipitor) 40 mg QHS PO 08/24/20 21:00 11/09/20 20:13 Pantoprazole Sodium (Protonix) 40 mg DAILY08 PO 08/25/20 08:00 11/09/20 08:58 Multivitamins/ Calcium (Thera-M Plus) 1 tab DAILY PO 08/25/20 09:00 11/09/20 08:59 Mupirocin (Bactroban) 1 césar BID92 TP 08/25/20 09:00 09/03/20 12:35 DC 09/01/20 14:00 Fish Oil (Fish Oil) 1,000 mg DAILY PO 08/25/20 09:00 11/08/20 18:17 DC 11/07/20 08:19 Olanzapine (ZyPREXA ZYDIS) 2.5 mg PRN Q2HR PRN PO PSYCHOSIS 08/24/20 19:45 10/25/20 15:29 Sertraline HCl (Zoloft) 25 mg DAILY PO 08/26/20 09:00 08/28/20 21:00 DC 08/28/20 08:37 Sertraline HCl (Zoloft) 50 mg DAILY PO 08/29/20 09:00 09/06/20 18:40 DC 09/04/20 08:58 Tamsulosin HCl (Flomax) 0.4 mg QHS PO 08/28/20 21:00 11/09/20 20:13 Mupirocin (Bactroban) 1 césar PRN BID PRN TP RASH 09/03/20 12:45 Diphenhydramine HCl (Benadryl) 50 mg 1X ONCE PO 09/04/20 21:00 09/04/20 21:01 DC 09/04/20 21:21 Olanzapine (ZyPREXA ZYDIS) 5 mg 1X ONCE PO 09/27/20 18:30 09/27/20 18:31 DC 09/27/20 18:30 Divalproex Sodium (Depakote Sprinkles) 125 mg 0900,1700 PO 09/28/20 17:00 10/12/20 17:08 DC 10/12/20 08:18 Furosemide (Lasix) 80 mg 1X ONCE PO 09/30/20 15:30 09/30/20 15:31 DC 09/30/20 16:00 Furosemide (Lasix) 80 mg DAILY PO 10/01/20 09:00 11/08/20 18:17 DC 11/08/20 08:39 Potassium Chloride (Klor-Con) 20 meq DAILYWBKFT PO 10/01/20 08:00 11/09/20 08:59 Trazodone HCl (Desyrel) 50 mg PRN QHS PRN PO INSOMNIA 10/08/20 16:15 11/07/20 18:18 DC 10/09/20 20:15 Divalproex Sodium (Depakote Sprinkles) 125 mg 0900,1300,1700,2100 PO 10/12/20 17:50 10/21/20 17:01 DC 10/21/20 12:26 Divalproex Sodium (Depakote Sprinkles) 125 mg 1300,1700 PO 10/21/20 17:00 10/25/20 17:17 DC 10/25/20 15:29 Divalproex Sodium (Depakote Sprinkles) 250 mg 0900,2100 PO 10/21/20 21:00 10/25/20 17:17 DC 10/25/20 09:09 Divalproex Sodium (Depakote Sprinkles) 250 mg QID PO 10/25/20 17:15 11/09/20 20:13 Trazodone HCl (Desyrel) 50 mg HS PO 11/07/20 21:00 11/09/20 20:13 Furosemide (Lasix) 40 mg DAILY PO 11/09/20 09:00 11/09/20 08:58 Current Medications Medications (Trade) Dose Ordered Sig/Ashvin Route PRN Reason Start Time Stop Time Status Last Admin Dose Admin Furosemide (Lasix) 40 mg DAILY PO 11/09/20 09:00 11/09/20 08:58 I have reviewed the current psychotropics carefully including drug interactions. Risk benefit ratio favors no change other than as noted in my dictated progress note. Diagnosis: Problems: (1) Impulse control disorder, unspecified (2) Anxiety disorder, unspecified (3) Dementia, vascular, with depression (4) Dementia, vascular, with delusions (5) Dementia in Alzheimer's disease with depression (6) Dementia in Alzheimer's disease with delusions (7) Dementia of the Alzheimer's type with early onset with behavioral disturbance (8) Major neurocognitive disorder VERENA AGUSTIN MD Nov 09, 2020 22:20
[2020-11-10 05:46] VITALS: BP 118/73
[2020-11-10] MEDS: DIVALPROEX 125 MG CAP.SPRINK PO SCH ×4 (08:54→21:43)
[2020-11-10] MEDS: CETIRIZINE HCL 10 MG TABLET PO SCH (08:54)
[2020-11-10] MEDS: PANTOPRAZOLE 40 MG TABLET. PO SCH (08:54)
[2020-11-10] MEDS: FUROSEMIDE 40 MG TABLET PO SCH (08:55)
[2020-11-10] MEDS: POTASSIUM CHLORIDE 20 MEQ TABLET.ER. PO SCH (08:55)
[2020-11-10] MEDS: ASPIRIN CHEWABLE 81 MG TABLET. PO SCH (08:55)
[2020-11-10] MEDS: MULTIVITAMIN with MINERAL TABLET. PO SCH (08:56)
--- NOTE | 2020-11-10 11:43 | TX PLAN ---
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 Change Sleep, Confusion/Disoriented, Poor impulse control, Other Problem in Patient's Words: I cannot care for him at home. Additional Admission Comments: According to the intake, pt was anxious, wandering, restless, insomnia, posturing [facility] staff, struck which resulted in police response Problems Active Problems: wandering restless Inactive Problems: medication compliant Pt Strengths/Limitations Ability for [place]: Poor Cognitive Functioning/Ability: Fair Communication Skills/Ability: Fair Financial Resources: Poor Insight/Judgement: Poor Intellectual Ability: Poor Physical Health: Fair Social Skills: Fair Stability in Family: Fair Stability in School/Work: Poor Verbal Skills: Fair Discharge Criteria Discharge Criteria: No need for close observ., Adequate arrangements @DC, Improved behavior, Improved mood/thought Preliminary Discharge Plan Preliminary DC Plan: Placement Needed Special Precautions Fall Risk: Low Initial D/C Plan Pt is not able to discharge home, will need placement once stable. Identified Discharge Needs: Referral for higher level of care Currently Utilized Resources Currently Utilized Resources/P: Primary Care Physician Identified Problems/Hx/Goals Objectives/Short-Term Goals Short Term Goals: Dec. Aggression, Dec. Outbursts, Medication Stabilization, Monitor Med Effects Short Term Goals in Patient's: N/A Interventions/Frequency Staff Interventions/Frequency&: Psychiatrist to assess pt at least 3x per week for medication management. Social Work to assess pt at least 2x per week to identify barriers to care and finalize discharge planning. Nursing to assess medication effects, behavior modification, and completion of 15 minute checks daily. Encourage participation in group activities (if applicable) or 1:1 engagement based off Activity Dept goals. 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 He received a Bachelors in Sociology. Community Follow-up Primary Care Physician Referrals to higher level of care Community Provider/Family Inpu: Pt has become increasingly aggressive towards his , who is caring for pt. She is not able to care for pt at home any longer. Treatment Plan Explained Patient/Visiting Housekeeper had this treatment plan explained to him/her as indicated by the signature below and has been given the opportunity to ask questions and make suggestions: Date: Patient/Visiting Housekeeper Signature: Status Update Update Pt is eating 100% of meals and sleeping on average 6 hours a night. Pt continues to wander the unit but is pleasantly confused. Pt has attended 3 groups with minimal participation but no physical aggression has been noted. Pt is accepted to [facility]; however, the facility is awaiting for pt to complete all needed paperwork before accepting him. Discharge ARVINDRA! WALESKA HARRELL Nov 10, 2020 11:43
[2020-11-10 15:45] VITALS: BP 101/63
[2020-11-10] MEDS: ATORVASTATIN CALCIUM 20 MG TABLET PO SCH (21:43)
[2020-11-10] MEDS: traZODone 50 MG TABLET. PO SCH (21:43)
[2020-11-10] MEDS: TAMSULOSIN 0.4 MG CAP.ER.24H. PO SCH (21:43)
--- NOTE | 2020-11-10 21:59 | PDOC ---
Exam Note: Fercho Note: Please also refer to the separate dictated note~for this date of service dictated separately.~Patient seen individually. Discussed the patient with Nursing staff reviewed the chart.~Reviewed interim history and current functioning. Reviewed vital signs,~Labs/ Radiology~and current medications noted below. Continue current treatment with the changes noted in the dictated addendum note Assessment: Vital Signs/I&O: Vital Signs Date Time Temp Pulse Resp B/P (MAP) Pulse Ox O2 Delivery O2 Flow Rate FiO2 11/10/20 15:45 97.3 62 18 101/63 (76) 97 11/08/20 06:00 Room Air I & O 11/09/20 11/09/20 11/10/20 15:00 23:00 07:00 Intake Total 480 ml 1270 ml Balance 480 ml 1270 ml Current Medications: I have reviewed the current psychotropics carefully including drug interactions. Risk benefit ratio favors no change other than as noted in my dictated progress note. Diagnosis: Problems: (1) Impulse control disorder, unspecified (2) Anxiety disorder, unspecified (3) Dementia, vascular, with depression (4) Dementia, vascular, with delusions (5) Dementia in Alzheimer's disease with depression (6) Dementia in Alzheimer's disease with delusions (7) Dementia of the Alzheimer's type with early onset with behavioral disturbance (8) Major neurocognitive disorder VERENA AGUSTIN MD Nov 10, 2020 21:58
[2020-11-11 06:41] VITALS: BP 115/72
--- NOTE | 2020-11-11 08:36 | PDOC ---
Exam Note: Fercho Note: This note is a late entry for 11/09/2020 covers elements not covered in my initial note. Subjective: The patient was seen individually in the evening of 11/09/2020 with Tala ABREU, discussed and reviewed the chart. He slept 6 hours previous night. The patient has been confused, not aggressive. He remains withdrawn, not much interaction with others. He takes his medications in pudding and yogurt. He is oblivious of his surroundings. As I met with him in the hallway outside his room he was smiling but kept on walking oblivious that I was walking with him. No clear psychotic symptoms. Review of Systems: No CV, , pulmonary, eye, ENT system symptoms on review. Mental Status Exam: The patient is oriented to himself. Insight and judgment, recent and remote memory, attention and concentration, fund of knowledge is poor consistent with his diagnoses. Laboratory Data: Reviewed. Impression: Major neurocognitive disorder Alzheimer vascular with delusion, depression, behavioral disturbance. Anxiety disorder unspecified. Impulse control disorder unspecified. Plan: No change from initial note. Assessment: Vital Signs/I&O: Vital Signs Date Time Temp Pulse Resp B/P (MAP) Pulse Ox O2 Delivery O2 Flow Rate FiO2 11/11/20 06:41 97.6 54 16 115/72 (86) 93 Room Air I & O 11/10/20 11/10/20 11/11/20 15:00 23:00 07:00 Intake Total 660 ml 600 ml Balance 660 ml 600 ml Current Medications: Meds: Current Medications Medications (Trade) Dose Ordered Sig/Ashvin Route PRN Reason Start Time Stop Time Status Last Admin Dose Admin Acetaminophen (Tylenol) 650 mg PRN Q6HRS PRN PO MILD PAIN / TEMP > 100.3'F 08/24/20 18:15 11/07/20 01:06 Multi-Ingredient Ointment (Analgesic [place]) 1 césar PRN QID PRN TP MUSCLE PAIN 08/24/20 18:15 Al Hydroxide/Mg Hydroxide (Mylanta Plus Xs) 15 ml PRN AFTMEALHC PRN PO DYSPEPSIA 08/24/20 18:15 Magnesium Hydroxide (Milk Of Magnesia) 2,400 mg PRN QHS PRN PO CONSTIPATION 08/24/20 18:15 11/10/20 16:58 Aspirin (Aspirin Chewable) 81 mg DAILY PO 08/25/20 09:00 11/10/20 08:55 Cetirizine HCl (ZyrTEC) 10 mg DAILY08 PO 08/25/20 08:00 11/10/20 08:54 Donepezil HCl (Aricept) 23 mg QHS PO 08/24/20 21:00 08/28/20 15:38 DC 08/27/20 20:34 Fluoxetine HCl (PROzac) 20 mg DAILY PO 08/25/20 09:00 11/10/20 08:55 Lorazepam (Ativan) 1 mg PRN Q4HRS PRN PO ANXIETY / AGITATION 08/24/20 18:45 09/04/20 16:12 DC 09/04/20 01:29 Atorvastatin Calcium (Lipitor) 40 mg QHS PO 08/24/20 21:00 11/10/20 21:43 Pantoprazole Sodium (Protonix) 40 mg DAILY08 PO 08/25/20 08:00 11/10/20 08:54 Multivitamins/ Calcium (Thera-M Plus) 1 tab DAILY PO 08/25/20 09:00 11/10/20 08:56 Mupirocin (Bactroban) 1 césar BID92 TP 08/25/20 09:00 09/03/20 12:35 DC 09/01/20 14:00 Fish Oil (Fish Oil) 1,000 mg DAILY PO 08/25/20 09:00 11/08/20 18:17 DC 11/07/20 08:19 Olanzapine (ZyPREXA ZYDIS) 2.5 mg PRN Q2HR PRN PO PSYCHOSIS 08/24/20 19:45 10/25/20 15:29 Sertraline HCl (Zoloft) 25 mg DAILY PO 08/26/20 09:00 08/28/20 21:00 DC 08/28/20 08:37 Sertraline HCl (Zoloft) 50 mg DAILY PO 08/29/20 09:00 09/06/20 18:40 DC 09/04/20 08:58 Tamsulosin HCl (Flomax) 0.4 mg QHS PO 08/28/20 21:00 11/10/20 21:43 Mupirocin (Bactroban) 1 césar PRN BID PRN TP RASH 09/03/20 12:45 Diphenhydramine HCl (Benadryl) 50 mg 1X ONCE PO 09/04/20 21:00 09/04/20 21:01 DC 09/04/20 21:21 Olanzapine (ZyPREXA ZYDIS) 5 mg 1X ONCE PO 09/27/20 18:30 09/27/20 18:31 DC 09/27/20 18:30 Divalproex Sodium (Depakote Sprinkles) 125 mg 0900,1700 PO 09/28/20 17:00 10/12/20 17:08 DC 10/12/20 08:18 Furosemide (Lasix) 80 mg 1X ONCE PO 09/30/20 15:30 09/30/20 15:31 DC 09/30/20 16:00 Furosemide (Lasix) 80 mg DAILY PO 10/01/20 09:00 11/08/20 18:17 DC 11/08/20 08:39 Potassium Chloride (Klor-Con) 20 meq DAILYWBKFT PO 10/01/20 08:00 11/10/20 08:55 Trazodone HCl (Desyrel) 50 mg PRN QHS PRN PO INSOMNIA 10/08/20 16:15 11/07/20 18:18 DC 10/09/20 20:15 Divalproex Sodium (Depakote Sprinkles) 125 mg 0900,1300,1700,2100 PO 10/12/20 17:50 10/21/20 17:01 DC 10/21/20 12:26 Divalproex Sodium (Depakote Sprinkles) 125 mg 1300,1700 PO 10/21/20 17:00 10/25/20 17:17 DC 10/25/20 15:29 Divalproex Sodium (Depakote Sprinkles) 250 mg 0900,2100 PO 10/21/20 21:00 10/25/20 17:17 DC 10/25/20 09:09 Divalproex Sodium (Depakote Sprinkles) 250 mg QID PO 10/25/20 17:15 11/10/20 21:43 Trazodone HCl (Desyrel) 50 mg HS PO 11/07/20 21:00 11/10/20 21:43 Furosemide (Lasix) 40 mg DAILY PO 11/09/20 09:00 11/10/20 08:55 I have reviewed the current psychotropics carefully including drug interactions. Risk benefit ratio favors no change other than as noted in my dictated progress note. Diagnosis: Problems: (1) Impulse control disorder, unspecified (2) Anxiety disorder, unspecified (3) Dementia, vascular, with depression (4) Dementia, vascular, with delusions (5) Dementia in Alzheimer's disease with depression (6) Dementia in Alzheimer's disease with delusions (7) Dementia of the Alzheimer's type with early onset with behavioral disturbance (8) Major neurocognitive disorder VERENA AGUSTIN MD Nov 11, 2020 08:36
--- NOTE | 2020-11-11 09:06 | PDOC ---
Exam Note: Fercho Note: This note is a late entry for 11/10/2020 covers elements not covered in my initial note. Subjective: The patient was seen individually in the morning of 11/10/2020 for a treatment team meeting with Niecy Naqvi, Ingris Serrano (psychosocial rehabilitation counselor), Ingrid, activity therapy and Ivan ABREU, discussed and reviewed the chart. He slept 7-1/2 hours previous night. The patient remains confused, wandering, at times gets agitated with groups. He is agitated with cares. He has attended 3 groups and was dancing and whistling, remains confused. Placement has been arranged per social service staff. Review of Systems: No CV, , pulmonary, eye, ENT system symptoms on review. Mental Status Exam: The patient is oriented to himself. Insight and judgment, recent and remote memory, attention and concentration, fund of knowledge is poor consistent with his diagnoses. Laboratory Data: Reviewed. Impression: Major neurocognitive disorder Alzheimer vascular with delusion, depression, behavioral disturbance. Anxiety disorder unspecified. Impulse control disorder unspecified. Plan: No change from initial note. Assessment: Vital Signs/I&O: Vital Signs Date Time Temp Pulse Resp B/P (MAP) Pulse Ox O2 Delivery O2 Flow Rate FiO2 11/11/20 06:41 97.6 54 16 115/72 (86) 93 Room Air I & O 11/10/20 11/10/20 11/11/20 15:00 23:00 07:00 Intake Total 660 ml 600 ml Balance 660 ml 600 ml Current Medications: Meds: Current Medications Medications (Trade) Dose Ordered Sig/Ashvin Route PRN Reason Start Time Stop Time Status Last Admin Dose Admin Acetaminophen (Tylenol) 650 mg PRN Q6HRS PRN PO MILD PAIN / TEMP > 100.3'F 08/24/20 18:15 11/07/20 01:06 Multi-Ingredient Ointment (Analgesic [place]) 1 césar PRN QID PRN TP MUSCLE PAIN 08/24/20 18:15 Al Hydroxide/Mg Hydroxide (Mylanta Plus Xs) 15 ml PRN AFTMEALHC PRN PO DYSPEPSIA 08/24/20 18:15 Magnesium Hydroxide (Milk Of Magnesia) 2,400 mg PRN QHS PRN PO CONSTIPATION 08/24/20 18:15 11/10/20 16:58 Aspirin (Aspirin Chewable) 81 mg DAILY PO 08/25/20 09:00 11/10/20 08:55 Cetirizine HCl (ZyrTEC) 10 mg DAILY08 PO 08/25/20 08:00 11/10/20 08:54 Donepezil HCl (Aricept) 23 mg QHS PO 08/24/20 21:00 08/28/20 15:38 DC 08/27/20 20:34 Fluoxetine HCl (PROzac) 20 mg DAILY PO 08/25/20 09:00 11/10/20 08:55 Lorazepam (Ativan) 1 mg PRN Q4HRS PRN PO ANXIETY / AGITATION 08/24/20 18:45 09/04/20 16:12 DC 09/04/20 01:29 Atorvastatin Calcium (Lipitor) 40 mg QHS PO 08/24/20 21:00 11/10/20 21:43 Pantoprazole Sodium (Protonix) 40 mg DAILY08 PO 08/25/20 08:00 11/10/20 08:54 Multivitamins/ Calcium (Thera-M Plus) 1 tab DAILY PO 08/25/20 09:00 11/10/20 08:56 Mupirocin (Bactroban) 1 césar BID92 TP 08/25/20 09:00 09/03/20 12:35 DC 09/01/20 14:00 Fish Oil (Fish Oil) 1,000 mg DAILY PO 08/25/20 09:00 11/08/20 18:17 DC 11/07/20 08:19 Olanzapine (ZyPREXA ZYDIS) 2.5 mg PRN Q2HR PRN PO PSYCHOSIS 08/24/20 19:45 10/25/20 15:29 Sertraline HCl (Zoloft) 25 mg DAILY PO 08/26/20 09:00 08/28/20 21:00 DC 08/28/20 08:37 Sertraline HCl (Zoloft) 50 mg DAILY PO 08/29/20 09:00 09/06/20 18:40 DC 09/04/20 08:58 Tamsulosin HCl (Flomax) 0.4 mg QHS PO 08/28/20 21:00 11/10/20 21:43 Mupirocin (Bactroban) 1 césar PRN BID PRN TP RASH 09/03/20 12:45 Diphenhydramine HCl (Benadryl) 50 mg 1X ONCE PO 09/04/20 21:00 09/04/20 21:01 DC 09/04/20 21:21 Olanzapine (ZyPREXA ZYDIS) 5 mg 1X ONCE PO 09/27/20 18:30 09/27/20 18:31 DC 09/27/20 18:30 Divalproex Sodium (Depakote Sprinkles) 125 mg 0900,1700 PO 09/28/20 17:00 10/12/20 17:08 DC 10/12/20 08:18 Furosemide (Lasix) 80 mg 1X ONCE PO 09/30/20 15:30 09/30/20 15:31 DC 09/30/20 16:00 Furosemide (Lasix) 80 mg DAILY PO 10/01/20 09:00 11/08/20 18:17 DC 11/08/20 08:39 Potassium Chloride (Klor-Con) 20 meq DAILYWBKFT PO 10/01/20 08:00 11/10/20 08:55 Trazodone HCl (Desyrel) 50 mg PRN QHS PRN PO INSOMNIA 10/08/20 16:15 11/07/20 18:18 DC 10/09/20 20:15 Divalproex Sodium (Depakote Sprinkles) 125 mg 0900,1300,1700,2100 PO 10/12/20 17:50 10/21/20 17:01 DC 10/21/20 12:26 Divalproex Sodium (Depakote Sprinkles) 125 mg 1300,1700 PO 10/21/20 17:00 10/25/20 17:17 DC 10/25/20 15:29 Divalproex Sodium (Depakote Sprinkles) 250 mg 0900,2100 PO 10/21/20 21:00 10/25/20 17:17 DC 10/25/20 09:09 Divalproex Sodium (Depakote Sprinkles) 250 mg QID PO 10/25/20 17:15 11/10/20 21:43 Trazodone HCl (Desyrel) 50 mg HS PO 11/07/20 21:00 11/10/20 21:43 Furosemide (Lasix) 40 mg DAILY PO 11/09/20 09:00 11/10/20 08:55 I have reviewed the current psychotropics carefully including drug interactions. Risk benefit ratio favors no change other than as noted in my dictated progress note. Diagnosis: Problems: (1) Impulse control disorder, unspecified (2) Anxiety disorder, unspecified (3) Dementia, vascular, with depression (4) Dementia, vascular, with delusions (5) Dementia in Alzheimer's disease with depression (6) Dementia in Alzheimer's disease with delusions (7) Dementia of the Alzheimer's type with early onset with behavioral disturbance (8) Major neurocognitive disorder VERENA AGUSTIN MD Nov 11, 2020 09:06
[2020-11-11] MEDS: MULTIVITAMIN with MINERAL TABLET. PO SCH (12:32)
[2020-11-11] MEDS: CETIRIZINE HCL 10 MG TABLET PO SCH (12:32)
[2020-11-11] MEDS: ASPIRIN CHEWABLE 81 MG TABLET. PO SCH (12:32)
[2020-11-11] MEDS: PANTOPRAZOLE 40 MG TABLET. PO SCH (12:32)
[2020-11-11] MEDS: FUROSEMIDE 40 MG TABLET PO SCH (12:33)
[2020-11-11] MEDS: DIVALPROEX 125 MG CAP.SPRINK PO SCH ×4 (12:33→20:54)
[2020-11-11] MEDS: POTASSIUM CHLORIDE 20 MEQ TABLET.ER. PO SCH (12:33)
[2020-11-11 15:56] VITALS: BP 110/58
[2020-11-11] MEDS: traZODone 50 MG TABLET. PO SCH (20:54)
[2020-11-11] MEDS: TAMSULOSIN 0.4 MG CAP.ER.24H. PO SCH (20:54)
[2020-11-11] MEDS: ATORVASTATIN CALCIUM 20 MG TABLET PO SCH (20:54)
--- NOTE | 2020-11-11 22:04 | PDOC ---
Exam Note: Fercho Note: Please also refer to the separate dictated note~for this date of service dictated separately.~Patient seen individually. Discussed the patient with Nursing staff reviewed the chart.~Reviewed interim history and current functioning. Reviewed vital signs,~Labs/ Radiology~and current medications noted below. Continue current treatment with the changes noted in the dictated addendum note Assessment: Vital Signs/I&O: Vital Signs Date Time Temp Pulse Resp B/P (MAP) Pulse Ox O2 Delivery O2 Flow Rate FiO2 11/11/20 15:56 97.9 83 16 110/58 (75) 96 Room Air I & O 11/10/20 11/10/20 11/11/20 14:59 22:59 06:59 Intake Total 660 ml 600 ml Balance 660 ml 600 ml Current Medications: Meds: Current Medications Medications (Trade) Dose Ordered Sig/Ashvin Route PRN Reason Start Time Stop Time Status Last Admin Dose Admin Acetaminophen (Tylenol) 650 mg PRN Q6HRS PRN PO MILD PAIN / TEMP > 100.3'F 08/24/20 18:15 11/07/20 01:06 Multi-Ingredient Ointment (Analgesic [place]) 1 césar PRN QID PRN TP MUSCLE PAIN 08/24/20 18:15 Al Hydroxide/Mg Hydroxide (Mylanta Plus Xs) 15 ml PRN AFTMEALHC PRN PO DYSPEPSIA 08/24/20 18:15 Magnesium Hydroxide (Milk Of Magnesia) 2,400 mg PRN QHS PRN PO CONSTIPATION 08/24/20 18:15 11/10/20 16:58 Aspirin (Aspirin Chewable) 81 mg DAILY PO 08/25/20 09:00 11/11/20 12:32 Cetirizine HCl (ZyrTEC) 10 mg DAILY08 PO 08/25/20 08:00 11/11/20 12:32 Donepezil HCl (Aricept) 23 mg QHS PO 08/24/20 21:00 08/28/20 15:38 DC 08/27/20 20:34 Fluoxetine HCl (PROzac) 20 mg DAILY PO 08/25/20 09:00 11/11/20 12:33 Lorazepam (Ativan) 1 mg PRN Q4HRS PRN PO ANXIETY / AGITATION 08/24/20 18:45 09/04/20 16:12 DC 09/04/20 01:29 Atorvastatin Calcium (Lipitor) 40 mg QHS PO 08/24/20 21:00 11/11/20 20:54 Pantoprazole Sodium (Protonix) 40 mg DAILY08 PO 08/25/20 08:00 11/11/20 12:32 Multivitamins/ Calcium (Thera-M Plus) 1 tab DAILY PO 08/25/20 09:00 11/11/20 12:32 Mupirocin (Bactroban) 1 césar BID92 TP 08/25/20 09:00 09/03/20 12:35 DC 09/01/20 14:00 Fish Oil (Fish Oil) 1,000 mg DAILY PO 08/25/20 09:00 11/08/20 18:17 DC 11/07/20 08:19 Olanzapine (ZyPREXA ZYDIS) 2.5 mg PRN Q2HR PRN PO PSYCHOSIS 08/24/20 19:45 10/25/20 15:29 Sertraline HCl (Zoloft) 25 mg DAILY PO 08/26/20 09:00 08/28/20 21:00 DC 08/28/20 08:37 Sertraline HCl (Zoloft) 50 mg DAILY PO 08/29/20 09:00 09/06/20 18:40 DC 09/04/20 08:58 Tamsulosin HCl (Flomax) 0.4 mg QHS PO 08/28/20 21:00 11/11/20 20:54 Mupirocin (Bactroban) 1 césar PRN BID PRN TP RASH 09/03/20 12:45 Diphenhydramine HCl (Benadryl) 50 mg 1X ONCE PO 09/04/20 21:00 09/04/20 21:01 DC 09/04/20 21:21 Olanzapine (ZyPREXA ZYDIS) 5 mg 1X ONCE PO 09/27/20 18:30 09/27/20 18:31 DC 09/27/20 18:30 Divalproex Sodium (Depakote Sprinkles) 125 mg 0900,1700 PO 09/28/20 17:00 10/12/20 17:08 DC 10/12/20 08:18 Furosemide (Lasix) 80 mg 1X ONCE PO 09/30/20 15:30 09/30/20 15:31 DC 09/30/20 16:00 Furosemide (Lasix) 80 mg DAILY PO 10/01/20 09:00 11/08/20 18:17 DC 11/08/20 08:39 Potassium Chloride (Klor-Con) 20 meq DAILYWBKFT PO 10/01/20 08:00 11/11/20 12:33 Trazodone HCl (Desyrel) 50 mg PRN QHS PRN PO INSOMNIA 10/08/20 16:15 11/07/20 18:18 DC 10/09/20 20:15 Divalproex Sodium (Depakote Sprinkles) 125 mg 0900,1300,1700,2100 PO 10/12/20 17:50 10/21/20 17:01 DC 10/21/20 12:26 Divalproex Sodium (Depakote Sprinkles) 125 mg 1300,1700 PO 10/21/20 17:00 10/25/20 17:17 DC 10/25/20 15:29 Divalproex Sodium (Depakote Sprinkles) 250 mg 0900,2100 PO 10/21/20 21:00 10/25/20 17:17 DC 10/25/20 09:09 Divalproex Sodium (Depakote Sprinkles) 250 mg QID PO 10/25/20 17:15 11/11/20 20:54 Trazodone HCl (Desyrel) 50 mg HS PO 11/07/20 21:00 11/11/20 20:54 Furosemide (Lasix) 40 mg DAILY PO 11/09/20 09:00 11/11/20 12:33 I have reviewed the current psychotropics carefully including drug interactions. Risk benefit ratio favors no change other than as noted in my dictated progress note. Diagnosis: Problems: (1) Impulse control disorder, unspecified (2) Anxiety disorder, unspecified (3) Dementia, vascular, with depression (4) Dementia, vascular, with delusions (5) Dementia in Alzheimer's disease with depression (6) Dementia in Alzheimer's disease with delusions (7) Dementia of the Alzheimer's type with early onset with behavioral disturbance (8) Major neurocognitive disorder VERENA AGUSTIN MD Nov 11, 2020 22:04
[2020-11-12 04:58] VITALS: BP 119/73
[2020-11-12] MEDS: DIVALPROEX 125 MG CAP.SPRINK PO SCH ×4 (12:12→19:58)
[2020-11-12] MEDS: FUROSEMIDE 40 MG TABLET PO SCH (12:12)
[2020-11-12] MEDS: CETIRIZINE HCL 10 MG TABLET PO SCH (12:12)
[2020-11-12] MEDS: MULTIVITAMIN with MINERAL TABLET. PO SCH (12:13)
[2020-11-12] MEDS: ASPIRIN CHEWABLE 81 MG TABLET. PO SCH (12:13)
[2020-11-12] MEDS: PANTOPRAZOLE 40 MG TABLET. PO SCH (12:13)
[2020-11-12] MEDS: POTASSIUM CHLORIDE 20 MEQ TABLET.ER. PO SCH (12:13)
[2020-11-12 15:42] VITALS: BP 98/60
[2020-11-12] MEDS: ATORVASTATIN CALCIUM 20 MG TABLET PO SCH (19:58)
[2020-11-12] MEDS: TAMSULOSIN 0.4 MG CAP.ER.24H. PO SCH (19:59)
[2020-11-12] MEDS: traZODone 50 MG TABLET. PO SCH (19:59)
--- NOTE | 2020-11-12 21:56 | PDOC ---
Exam Note: Fercho Note: Please also refer to the separate dictated note~for this date of service dictated separately.~Patient seen individually. Discussed the patient with Nursing staff reviewed the chart.~Reviewed interim history and current functioning. Reviewed vital signs,~Labs/ Radiology~and current medications noted below. Continue current treatment with the changes noted in the dictated addendum note Assessment: Vital Signs/I&O: Vital Signs Date Time Temp Pulse Resp B/P (MAP) Pulse Ox O2 Delivery O2 Flow Rate FiO2 11/12/20 15:42 98.6 60 16 98/60 (73) 97 11/11/20 15:56 Room Air I & O 11/11/20 11/11/20 11/12/20 15:00 23:00 07:00 Intake Total 0 ml 720 ml Balance 0 ml 720 ml Current Medications: Meds: Current Medications Medications (Trade) Dose Ordered Sig/Ashvin Route PRN Reason Start Time Stop Time Status Last Admin Dose Admin Acetaminophen (Tylenol) 650 mg PRN Q6HRS PRN PO MILD PAIN / TEMP > 100.3'F 08/24/20 18:15 11/07/20 01:06 Multi-Ingredient Ointment (Analgesic [place]) 1 césar PRN QID PRN TP MUSCLE PAIN 08/24/20 18:15 Al Hydroxide/Mg Hydroxide (Mylanta Plus Xs) 15 ml PRN AFTMEALHC PRN PO DYSPEPSIA 08/24/20 18:15 Magnesium Hydroxide (Milk Of Magnesia) 2,400 mg PRN QHS PRN PO CONSTIPATION 08/24/20 18:15 11/10/20 16:58 Aspirin (Aspirin Chewable) 81 mg DAILY PO 08/25/20 09:00 11/12/20 12:13 Cetirizine HCl (ZyrTEC) 10 mg DAILY08 PO 08/25/20 08:00 11/12/20 12:12 Donepezil HCl (Aricept) 23 mg QHS PO 08/24/20 21:00 08/28/20 15:38 DC 08/27/20 20:34 Fluoxetine HCl (PROzac) 20 mg DAILY PO 08/25/20 09:00 11/12/20 12:13 Lorazepam (Ativan) 1 mg PRN Q4HRS PRN PO ANXIETY / AGITATION 08/24/20 18:45 09/04/20 16:12 DC 09/04/20 01:29 Atorvastatin Calcium (Lipitor) 40 mg QHS PO 08/24/20 21:00 11/12/20 19:58 Pantoprazole Sodium (Protonix) 40 mg DAILY08 PO 08/25/20 08:00 11/12/20 12:13 Multivitamins/ Calcium (Thera-M Plus) 1 tab DAILY PO 08/25/20 09:00 11/12/20 12:13 Mupirocin (Bactroban) 1 césar BID92 TP 08/25/20 09:00 09/03/20 12:35 DC 09/01/20 14:00 Fish Oil (Fish Oil) 1,000 mg DAILY PO 08/25/20 09:00 11/08/20 18:17 DC 11/07/20 08:19 Olanzapine (ZyPREXA ZYDIS) 2.5 mg PRN Q2HR PRN PO PSYCHOSIS 08/24/20 19:45 10/25/20 15:29 Sertraline HCl (Zoloft) 25 mg DAILY PO 08/26/20 09:00 08/28/20 21:00 DC 08/28/20 08:37 Sertraline HCl (Zoloft) 50 mg DAILY PO 08/29/20 09:00 09/06/20 18:40 DC 09/04/20 08:58 Tamsulosin HCl (Flomax) 0.4 mg QHS PO 08/28/20 21:00 11/12/20 19:59 Mupirocin (Bactroban) 1 césar PRN BID PRN TP RASH 09/03/20 12:45 Diphenhydramine HCl (Benadryl) 50 mg 1X ONCE PO 09/04/20 21:00 09/04/20 21:01 DC 09/04/20 21:21 Olanzapine (ZyPREXA ZYDIS) 5 mg 1X ONCE PO 09/27/20 18:30 09/27/20 18:31 DC 09/27/20 18:30 Divalproex Sodium (Depakote Sprinkles) 125 mg 0900,1700 PO 09/28/20 17:00 10/12/20 17:08 DC 10/12/20 08:18 Furosemide (Lasix) 80 mg 1X ONCE PO 09/30/20 15:30 09/30/20 15:31 DC 09/30/20 16:00 Furosemide (Lasix) 80 mg DAILY PO 10/01/20 09:00 11/08/20 18:17 DC 11/08/20 08:39 Potassium Chloride (Klor-Con) 20 meq DAILYWBKFT PO 10/01/20 08:00 11/12/20 12:13 Trazodone HCl (Desyrel) 50 mg PRN QHS PRN PO INSOMNIA 10/08/20 16:15 11/07/20 18:18 DC 10/09/20 20:15 Divalproex Sodium (Depakote Sprinkles) 125 mg 0900,1300,1700,2100 PO 10/12/20 17:50 10/21/20 17:01 DC 10/21/20 12:26 Divalproex Sodium (Depakote Sprinkles) 125 mg 1300,1700 PO 10/21/20 17:00 10/25/20 17:17 DC 10/25/20 15:29 Divalproex Sodium (Depakote Sprinkles) 250 mg 0900,2100 PO 10/21/20 21:00 10/25/20 17:17 DC 10/25/20 09:09 Divalproex Sodium (Depakote Sprinkles) 250 mg QID PO 10/25/20 17:15 11/12/20 19:58 Trazodone HCl (Desyrel) 50 mg HS PO 11/07/20 21:00 11/12/20 19:59 Furosemide (Lasix) 40 mg DAILY PO 11/09/20 09:00 11/12/20 12:12 I have reviewed the current psychotropics carefully including drug interactions. Risk benefit ratio favors no change other than as noted in my dictated progress note. Diagnosis: Problems: (1) Impulse control disorder, unspecified (2) Anxiety disorder, unspecified (3) Dementia, vascular, with depression (4) Dementia, vascular, with delusions (5) Dementia in Alzheimer's disease with depression (6) Dementia in Alzheimer's disease with delusions (7) Dementia of the Alzheimer's type with early onset with behavioral disturbance (8) Major neurocognitive disorder VERENA AGUSTIN MD Nov 12, 2020 21:56
[2020-11-13 06:16] VITALS: BP 107/55
--- NOTE | 2020-11-13 07:38 | PDOC ---
Exam Note: Fercho Note: This note is a late entry for 11/11/2020 covers elements not covered in my initial note. Subjective: The patient was reviewed on telehealth rounds on 11/11/2020 due to the COVID-19 pandemic. There have been 3 patients on the unit that have turned up positive today, 11/11 and they are being transitioned to the [facility] floor per Dr. Hodgson. There have also been 2 staff members that have turned up positive for COVID-19 and all the patients are going to be tested weekly for the COVID-19 along with every staff member going forward. I had not had the opportunity to be tested myself and will await completing this before considering [id number] rounds on the unit. Discussed with Ivan ABREU, discussed and reviewed the chart. He slept 6-3/4 hours previous night. The patient remains confused, wandering up and down the hallway, pleasant, smiling, oblivious to his surroundings. Review of Systems: No CV, , pulmonary, eye, ENT system symptoms on review. Mental Status Exam: The patient is oriented to himself. Insight and judgment, recent and remote memory, attention and concentration, fund of knowledge is poor consistent with his diagnoses. Laboratory Data: Reviewed. Impression: Major neurocognitive disorder Alzheimer vascular with delusion, depression, behavioral disturbance. Anxiety disorder unspecified. Impulse control disorder unspecified. Plan: No change from initial note. Assessment: Vital Signs/I&O: Vital Signs Date Time Temp Pulse Resp B/P (MAP) Pulse Ox O2 Delivery O2 Flow Rate FiO2 11/13/20 06:16 97.2 61 18 107/55 (72) 97 11/11/20 15:56 Room Air I & O 11/12/20 11/12/20 11/13/20 15:00 23:00 07:00 Intake Total 240 ml 480 ml Balance 240 ml 480 ml Current Medications: Meds: Current Medications Medications (Trade) Dose Ordered Sig/Ashvin Route PRN Reason Start Time Stop Time Status Last Admin Dose Admin Acetaminophen (Tylenol) 650 mg PRN Q6HRS PRN PO MILD PAIN / TEMP > 100.3'F 08/24/20 18:15 11/07/20 01:06 Multi-Ingredient Ointment (Analgesic [place]) 1 césar PRN QID PRN TP MUSCLE PAIN 08/24/20 18:15 Al Hydroxide/Mg Hydroxide (Mylanta Plus Xs) 15 ml PRN AFTMEALHC PRN PO DYSPEPSIA 08/24/20 18:15 Magnesium Hydroxide (Milk Of Magnesia) 2,400 mg PRN QHS PRN PO CONSTIPATION 08/24/20 18:15 11/10/20 16:58 Aspirin (Aspirin Chewable) 81 mg DAILY PO 08/25/20 09:00 11/12/20 12:13 Cetirizine HCl (ZyrTEC) 10 mg DAILY08 PO 08/25/20 08:00 11/12/20 12:12 Donepezil HCl (Aricept) 23 mg QHS PO 08/24/20 21:00 08/28/20 15:38 DC 08/27/20 20:34 Fluoxetine HCl (PROzac) 20 mg DAILY PO 08/25/20 09:00 11/12/20 12:13 Lorazepam (Ativan) 1 mg PRN Q4HRS PRN PO ANXIETY / AGITATION 08/24/20 18:45 09/04/20 16:12 DC 09/04/20 01:29 Atorvastatin Calcium (Lipitor) 40 mg QHS PO 08/24/20 21:00 11/12/20 19:58 Pantoprazole Sodium (Protonix) 40 mg DAILY08 PO 08/25/20 08:00 11/12/20 12:13 Multivitamins/ Calcium (Thera-M Plus) 1 tab DAILY PO 08/25/20 09:00 11/12/20 12:13 Mupirocin (Bactroban) 1 césar BID92 TP 08/25/20 09:00 09/03/20 12:35 DC 09/01/20 14:00 Fish Oil (Fish Oil) 1,000 mg DAILY PO 08/25/20 09:00 11/08/20 18:17 DC 11/07/20 08:19 Olanzapine (ZyPREXA ZYDIS) 2.5 mg PRN Q2HR PRN PO PSYCHOSIS 08/24/20 19:45 10/25/20 15:29 Sertraline HCl (Zoloft) 25 mg DAILY PO 08/26/20 09:00 08/28/20 21:00 DC 08/28/20 08:37 Sertraline HCl (Zoloft) 50 mg DAILY PO 08/29/20 09:00 09/06/20 18:40 DC 09/04/20 08:58 Tamsulosin HCl (Flomax) 0.4 mg QHS PO 08/28/20 21:00 11/12/20 19:59 Mupirocin (Bactroban) 1 césar PRN BID PRN TP RASH 09/03/20 12:45 Diphenhydramine HCl (Benadryl) 50 mg 1X ONCE PO 09/04/20 21:00 09/04/20 21:01 DC 09/04/20 21:21 Olanzapine (ZyPREXA ZYDIS) 5 mg 1X ONCE PO 09/27/20 18:30 09/27/20 18:31 DC 09/27/20 18:30 Divalproex Sodium (Depakote Sprinkles) 125 mg 0900,1700 PO 09/28/20 17:00 10/12/20 17:08 DC 10/12/20 08:18 Furosemide (Lasix) 80 mg 1X ONCE PO 09/30/20 15:30 09/30/20 15:31 DC 09/30/20 16:00 Furosemide (Lasix) 80 mg DAILY PO 10/01/20 09:00 11/08/20 18:17 DC 11/08/20 08:39 Potassium Chloride (Klor-Con) 20 meq DAILYWBKFT PO 10/01/20 08:00 11/12/20 12:13 Trazodone HCl (Desyrel) 50 mg PRN QHS PRN PO INSOMNIA 10/08/20 16:15 11/07/20 18:18 DC 10/09/20 20:15 Divalproex Sodium (Depakote Sprinkles) 125 mg 0900,1300,1700,2100 PO 10/12/20 17:50 10/21/20 17:01 DC 10/21/20 12:26 Divalproex Sodium (Depakote Sprinkles) 125 mg 1300,1700 PO 10/21/20 17:00 10/25/20 17:17 DC 10/25/20 15:29 Divalproex Sodium (Depakote Sprinkles) 250 mg 0900,2100 PO 10/21/20 21:00 10/25/20 17:17 DC 10/25/20 09:09 Divalproex Sodium (Depakote Sprinkles) 250 mg QID PO 10/25/20 17:15 11/12/20 19:58 Trazodone HCl (Desyrel) 50 mg HS PO 11/07/20 21:00 11/12/20 19:59 Furosemide (Lasix) 40 mg DAILY PO 11/09/20 09:00 11/12/20 12:12 I have reviewed the current psychotropics carefully including drug interactions. Risk benefit ratio favors no change other than as noted in my dictated progress note. Diagnosis: Problems: (1) Impulse control disorder, unspecified (2) Anxiety disorder, unspecified (3) Dementia, vascular, with depression (4) Dementia, vascular, with delusions (5) Dementia in Alzheimer's disease with depression (6) Dementia in Alzheimer's disease with delusions (7) Dementia of the Alzheimer's type with early onset with behavioral disturbance (8) Major neurocognitive disorder VERENA AGUSTIN MD Nov 13, 2020 07:37
[2020-11-13] MEDS: CETIRIZINE HCL 10 MG TABLET PO SCH (08:11)
[2020-11-13] MEDS: PANTOPRAZOLE 40 MG TABLET. PO SCH (08:11)
[2020-11-13] MEDS: ASPIRIN CHEWABLE 81 MG TABLET. PO SCH (08:11)
[2020-11-13] MEDS: DIVALPROEX 125 MG CAP.SPRINK PO SCH ×4 (08:11→19:45)
[2020-11-13] MEDS: FUROSEMIDE 40 MG TABLET PO SCH (08:11)
[2020-11-13] MEDS: POTASSIUM CHLORIDE 20 MEQ TABLET.ER. PO SCH (08:12)
[2020-11-13] MEDS: MULTIVITAMIN with MINERAL TABLET. PO SCH (08:12)
--- NOTE | 2020-11-13 08:26 | PDOC ---
Exam Note: Fercho Note: This note is a late entry for 11/12/2020 covers elements not covered in my initial note. Subjective: The patient was reviewed on telehealth rounds on 11/12/2020 due to the COVID-19 pandemic. Discussed with Ivan ABREU and reviewed the chart. He slept 7 hours previous night and he slept in late early hours of November 11. The patient remains confused, wandering the hallways. Placement is being sought per social service staff. I met him in the hallway, oblivious to his surroundings. Review of Systems: No CV, , pulmonary, eye, ENT system symptoms on review. Mental Status Exam: The patient is oriented to himself. Insight and judgment, recent and remote memory, attention and concentration, fund of knowledge is poor consistent with his diagnoses. Laboratory Data: Reviewed. Impression: Major neurocognitive disorder Alzheimer vascular with delusion, depression, behavioral disturbance. Anxiety disorder unspecified. Impulse control disorder unspecified. Plan: No change from initial note. Assessment: Vital Signs/I&O: Vital Signs Date Time Temp Pulse Resp B/P (MAP) Pulse Ox O2 Delivery O2 Flow Rate FiO2 11/13/20 06:16 97.2 61 18 107/55 (72) 97 11/11/20 15:56 Room Air I & O 11/12/20 11/12/20 11/13/20 14:59 22:59 06:59 Intake Total 240 ml 480 ml Balance 240 ml 480 ml Current Medications: Meds: Current Medications Medications (Trade) Dose Ordered Sig/Ashvin Route PRN Reason Start Time Stop Time Status Last Admin Dose Admin Acetaminophen (Tylenol) 650 mg PRN Q6HRS PRN PO MILD PAIN / TEMP > 100.3'F 08/24/20 18:15 11/07/20 01:06 Multi-Ingredient Ointment (Analgesic [place]) 1 césar PRN QID PRN TP MUSCLE PAIN 08/24/20 18:15 Al Hydroxide/Mg Hydroxide (Mylanta Plus Xs) 15 ml PRN AFTMEALHC PRN PO DYSPEPSIA 08/24/20 18:15 Magnesium Hydroxide (Milk Of Magnesia) 2,400 mg PRN QHS PRN PO CONSTIPATION 08/24/20 18:15 11/10/20 16:58 Aspirin (Aspirin Chewable) 81 mg DAILY PO 08/25/20 09:00 11/13/20 08:11 Cetirizine HCl (ZyrTEC) 10 mg DAILY08 PO 08/25/20 08:00 11/13/20 08:11 Donepezil HCl (Aricept) 23 mg QHS PO 08/24/20 21:00 08/28/20 15:38 DC 08/27/20 20:34 Fluoxetine HCl (PROzac) 20 mg DAILY PO 08/25/20 09:00 11/13/20 08:12 Lorazepam (Ativan) 1 mg PRN Q4HRS PRN PO ANXIETY / AGITATION 08/24/20 18:45 09/04/20 16:12 DC 09/04/20 01:29 Atorvastatin Calcium (Lipitor) 40 mg QHS PO 08/24/20 21:00 11/12/20 19:58 Pantoprazole Sodium (Protonix) 40 mg DAILY08 PO 08/25/20 08:00 11/13/20 08:11 Multivitamins/ Calcium (Thera-M Plus) 1 tab DAILY PO 08/25/20 09:00 11/13/20 08:12 Mupirocin (Bactroban) 1 césar BID92 TP 08/25/20 09:00 09/03/20 12:35 DC 09/01/20 14:00 Fish Oil (Fish Oil) 1,000 mg DAILY PO 08/25/20 09:00 11/08/20 18:17 DC 11/07/20 08:19 Olanzapine (ZyPREXA ZYDIS) 2.5 mg PRN Q2HR PRN PO PSYCHOSIS 08/24/20 19:45 10/25/20 15:29 Sertraline HCl (Zoloft) 25 mg DAILY PO 08/26/20 09:00 08/28/20 21:00 DC 08/28/20 08:37 Sertraline HCl (Zoloft) 50 mg DAILY PO 08/29/20 09:00 09/06/20 18:40 DC 09/04/20 08:58 Tamsulosin HCl (Flomax) 0.4 mg QHS PO 08/28/20 21:00 11/12/20 19:59 Mupirocin (Bactroban) 1 césar PRN BID PRN TP RASH 09/03/20 12:45 Diphenhydramine HCl (Benadryl) 50 mg 1X ONCE PO 09/04/20 21:00 09/04/20 21:01 DC 09/04/20 21:21 Olanzapine (ZyPREXA ZYDIS) 5 mg 1X ONCE PO 09/27/20 18:30 09/27/20 18:31 DC 09/27/20 18:30 Divalproex Sodium (Depakote Sprinkles) 125 mg 0900,1700 PO 09/28/20 17:00 10/12/20 17:08 DC 10/12/20 08:18 Furosemide (Lasix) 80 mg 1X ONCE PO 09/30/20 15:30 09/30/20 15:31 DC 09/30/20 16:00 Furosemide (Lasix) 80 mg DAILY PO 10/01/20 09:00 11/08/20 18:17 DC 11/08/20 08:39 Potassium Chloride (Klor-Con) 20 meq DAILYWBKFT PO 10/01/20 08:00 11/13/20 08:12 Trazodone HCl (Desyrel) 50 mg PRN QHS PRN PO INSOMNIA 10/08/20 16:15 11/07/20 18:18 DC 10/09/20 20:15 Divalproex Sodium (Depakote Sprinkles) 125 mg 0900,1300,1700,2100 PO 10/12/20 17:50 10/21/20 17:01 DC 10/21/20 12:26 Divalproex Sodium (Depakote Sprinkles) 125 mg 1300,1700 PO 10/21/20 17:00 10/25/20 17:17 DC 10/25/20 15:29 Divalproex Sodium (Depakote Sprinkles) 250 mg 0900,2100 PO 10/21/20 21:00 10/25/20 17:17 DC 10/25/20 09:09 Divalproex Sodium (Depakote Sprinkles) 250 mg QID PO 10/25/20 17:15 11/13/20 08:11 Trazodone HCl (Desyrel) 50 mg HS PO 11/07/20 21:00 11/12/20 19:59 Furosemide (Lasix) 40 mg DAILY PO 11/09/20 09:00 11/13/20 08:11 I have reviewed the current psychotropics carefully including drug interactions. Risk benefit ratio favors no change other than as noted in my dictated progress note. Diagnosis: Problems: (1) Impulse control disorder, unspecified (2) Anxiety disorder, unspecified (3) Dementia, vascular, with depression (4) Dementia, vascular, with delusions (5) Dementia in Alzheimer's disease with depression (6) Dementia in Alzheimer's disease with delusions (7) Dementia of the Alzheimer's type with early onset with behavioral disturbance (8) Major neurocognitive disorder VERENA AGUSTIN MD Nov 13, 2020 08:26
[2020-11-13 16:12] VITALS: BP 98/60
[2020-11-13] MEDS: TAMSULOSIN 0.4 MG CAP.ER.24H. PO SCH (19:45)
[2020-11-13] MEDS: traZODone 50 MG TABLET. PO SCH (19:45)
[2020-11-13] MEDS: ATORVASTATIN CALCIUM 20 MG TABLET PO SCH (19:46)
--- NOTE | 2020-11-13 21:53 | PDOC ---
Exam Note: Fercho Note: Please also refer to the separate dictated note~for this date of service dictated separately.~Patient seen individually. Discussed the patient with Nursing staff reviewed the chart.~Reviewed interim history and current functioning. Reviewed vital signs,~Labs/ Radiology~and current medications noted below. Continue current treatment with the changes noted in the dictated addendum note Assessment: Vital Signs/I&O: Vital Signs Date Time Temp Pulse Resp B/P (MAP) Pulse Ox O2 Delivery O2 Flow Rate FiO2 11/13/20 16:12 97.6 68 20 98/60 (73) 94 11/11/20 15:56 Room Air I & O 11/12/20 11/12/20 11/13/20 15:00 23:00 07:00 Intake Total 240 ml 480 ml Balance 240 ml 480 ml Current Medications: Meds: Current Medications Medications (Trade) Dose Ordered Sig/Ashvin Route PRN Reason Start Time Stop Time Status Last Admin Dose Admin Acetaminophen (Tylenol) 650 mg PRN Q6HRS PRN PO MILD PAIN / TEMP > 100.3'F 08/24/20 18:15 11/07/20 01:06 Multi-Ingredient Ointment (Analgesic [place]) 1 césar PRN QID PRN TP MUSCLE PAIN 08/24/20 18:15 Al Hydroxide/Mg Hydroxide (Mylanta Plus Xs) 15 ml PRN AFTMEALHC PRN PO DYSPEPSIA 08/24/20 18:15 Magnesium Hydroxide (Milk Of Magnesia) 2,400 mg PRN QHS PRN PO CONSTIPATION 08/24/20 18:15 11/10/20 16:58 Aspirin (Aspirin Chewable) 81 mg DAILY PO 08/25/20 09:00 11/13/20 08:11 Cetirizine HCl (ZyrTEC) 10 mg DAILY08 PO 08/25/20 08:00 11/13/20 08:11 Donepezil HCl (Aricept) 23 mg QHS PO 08/24/20 21:00 08/28/20 15:38 DC 08/27/20 20:34 Fluoxetine HCl (PROzac) 20 mg DAILY PO 08/25/20 09:00 11/13/20 08:12 Lorazepam (Ativan) 1 mg PRN Q4HRS PRN PO ANXIETY / AGITATION 08/24/20 18:45 09/04/20 16:12 DC 09/04/20 01:29 Atorvastatin Calcium (Lipitor) 40 mg QHS PO 08/24/20 21:00 11/13/20 19:46 Pantoprazole Sodium (Protonix) 40 mg DAILY08 PO 08/25/20 08:00 11/13/20 08:11 Multivitamins/ Calcium (Thera-M Plus) 1 tab DAILY PO 08/25/20 09:00 11/13/20 08:12 Mupirocin (Bactroban) 1 césar BID92 TP 08/25/20 09:00 09/03/20 12:35 DC 09/01/20 14:00 Fish Oil (Fish Oil) 1,000 mg DAILY PO 08/25/20 09:00 11/08/20 18:17 DC 11/07/20 08:19 Olanzapine (ZyPREXA ZYDIS) 2.5 mg PRN Q2HR PRN PO PSYCHOSIS 08/24/20 19:45 10/25/20 15:29 Sertraline HCl (Zoloft) 25 mg DAILY PO 08/26/20 09:00 08/28/20 21:00 DC 08/28/20 08:37 Sertraline HCl (Zoloft) 50 mg DAILY PO 08/29/20 09:00 09/06/20 18:40 DC 09/04/20 08:58 Tamsulosin HCl (Flomax) 0.4 mg QHS PO 08/28/20 21:00 11/13/20 19:45 Mupirocin (Bactroban) 1 césar PRN BID PRN TP RASH 09/03/20 12:45 Diphenhydramine HCl (Benadryl) 50 mg 1X ONCE PO 09/04/20 21:00 09/04/20 21:01 DC 09/04/20 21:21 Olanzapine (ZyPREXA ZYDIS) 5 mg 1X ONCE PO 09/27/20 18:30 09/27/20 18:31 DC 09/27/20 18:30 Divalproex Sodium (Depakote Sprinkles) 125 mg 0900,1700 PO 09/28/20 17:00 10/12/20 17:08 DC 10/12/20 08:18 Furosemide (Lasix) 80 mg 1X ONCE PO 09/30/20 15:30 09/30/20 15:31 DC 09/30/20 16:00 Furosemide (Lasix) 80 mg DAILY PO 10/01/20 09:00 11/08/20 18:17 DC 11/08/20 08:39 Potassium Chloride (Klor-Con) 20 meq DAILYWBKFT PO 10/01/20 08:00 11/13/20 08:12 Trazodone HCl (Desyrel) 50 mg PRN QHS PRN PO INSOMNIA 10/08/20 16:15 11/07/20 18:18 DC 10/09/20 20:15 Divalproex Sodium (Depakote Sprinkles) 125 mg 0900,1300,1700,2100 PO 10/12/20 17:50 10/21/20 17:01 DC 10/21/20 12:26 Divalproex Sodium (Depakote Sprinkles) 125 mg 1300,1700 PO 10/21/20 17:00 10/25/20 17:17 DC 10/25/20 15:29 Divalproex Sodium (Depakote Sprinkles) 250 mg 0900,2100 PO 10/21/20 21:00 10/25/20 17:17 DC 10/25/20 09:09 Divalproex Sodium (Depakote Sprinkles) 250 mg QID PO 10/25/20 17:15 11/13/20 19:45 Trazodone HCl (Desyrel) 50 mg HS PO 11/07/20 21:00 11/13/20 19:45 Furosemide (Lasix) 40 mg DAILY PO 11/09/20 09:00 11/13/20 08:11 I have reviewed the current psychotropics carefully including drug interactions. Risk benefit ratio favors no change other than as noted in my dictated progress note. Diagnosis: Problems: (1) Impulse control disorder, unspecified (2) Anxiety disorder, unspecified (3) Dementia, vascular, with depression (4) Dementia, vascular, with delusions (5) Dementia in Alzheimer's disease with depression (6) Dementia in Alzheimer's disease with delusions (7) Dementia of the Alzheimer's type with early onset with behavioral disturbance (8) Major neurocognitive disorder VERENA AGUSTIN MD Nov 13, 2020 21:53
[2020-11-14] MEDS: ACETAMINOPHEN 325 MG TABLET PO PRN (05:44)
[2020-11-14 06:21] VITALS: BP 102/68
--- NOTE | 2020-11-14 06:23 | PDOC ---
Exam Note: Fercho Note: This note is a late entry for 11/13/2020 covers elements not covered in my initial note. Subjective: The patient was seen individually in the evening of 11/13/2020 with Shonda ABREU, discussed and reviewed the chart. He slept 8-1/2 hours previous night. Overall the patient has been calm. Appetite is fair. He takes medications crushed in pudding. He is pleasant, smiling, oblivious of his surroundings, quite confused, but not aggressive. Review of Systems: No CV, , pulmonary, eye, ENT system symptoms on review. Mental Status Exam: The patient is oriented to himself. Insight and judgment, recent and remote memory, attention and concentration, fund of knowledge is poor consistent with his diagnoses. Laboratory Data: Reviewed. Impression: Major neurocognitive disorder Alzheimer vascular with delusion, depression, behavioral disturbance. Anxiety disorder unspecified. Impulse control disorder unspecified. Plan: No change from initial note. Assessment: Vital Signs/I&O: Vital Signs Date Time Temp Pulse Resp B/P (MAP) Pulse Ox O2 Delivery O2 Flow Rate FiO2 11/13/20 16:12 97.6 68 20 98/60 (73) 94 11/11/20 15:56 Room Air I & O 11/13/20 11/13/20 11/14/20 15:00 23:00 07:00 Intake Total 960 ml 480 ml Balance 960 ml 480 ml Current Medications: Meds: Current Medications Medications (Trade) Dose Ordered Sig/Ashvin Route PRN Reason Start Time Stop Time Status Last Admin Dose Admin Acetaminophen (Tylenol) 650 mg PRN Q6HRS PRN PO MILD PAIN / TEMP > 100.3'F 08/24/20 18:15 11/14/20 05:44 Multi-Ingredient Ointment (Analgesic [place]) 1 césar PRN QID PRN TP MUSCLE PAIN 08/24/20 18:15 Al Hydroxide/Mg Hydroxide (Mylanta Plus Xs) 15 ml PRN AFTMEALHC PRN PO DYSPEPSIA 08/24/20 18:15 Magnesium Hydroxide (Milk Of Magnesia) 2,400 mg PRN QHS PRN PO CONSTIPATION 08/24/20 18:15 11/10/20 16:58 Aspirin (Aspirin Chewable) 81 mg DAILY PO 08/25/20 09:00 11/13/20 08:11 Cetirizine HCl (ZyrTEC) 10 mg DAILY08 PO 08/25/20 08:00 11/13/20 08:11 Donepezil HCl (Aricept) 23 mg QHS PO 08/24/20 21:00 08/28/20 15:38 DC 08/27/20 20:34 Fluoxetine HCl (PROzac) 20 mg DAILY PO 08/25/20 09:00 11/13/20 08:12 Lorazepam (Ativan) 1 mg PRN Q4HRS PRN PO ANXIETY / AGITATION 08/24/20 18:45 09/04/20 16:12 DC 09/04/20 01:29 Atorvastatin Calcium (Lipitor) 40 mg QHS PO 08/24/20 21:00 11/13/20 19:46 Pantoprazole Sodium (Protonix) 40 mg DAILY08 PO 08/25/20 08:00 11/13/20 08:11 Multivitamins/ Calcium (Thera-M Plus) 1 tab DAILY PO 08/25/20 09:00 11/13/20 08:12 Mupirocin (Bactroban) 1 césar BID92 TP 08/25/20 09:00 09/03/20 12:35 DC 09/01/20 14:00 Fish Oil (Fish Oil) 1,000 mg DAILY PO 08/25/20 09:00 11/08/20 18:17 DC 11/07/20 08:19 Olanzapine (ZyPREXA ZYDIS) 2.5 mg PRN Q2HR PRN PO PSYCHOSIS 08/24/20 19:45 10/25/20 15:29 Sertraline HCl (Zoloft) 25 mg DAILY PO 08/26/20 09:00 08/28/20 21:00 DC 08/28/20 08:37 Sertraline HCl (Zoloft) 50 mg DAILY PO 08/29/20 09:00 09/06/20 18:40 DC 09/04/20 08:58 Tamsulosin HCl (Flomax) 0.4 mg QHS PO 08/28/20 21:00 11/13/20 19:45 Mupirocin (Bactroban) 1 césar PRN BID PRN TP RASH 09/03/20 12:45 Diphenhydramine HCl (Benadryl) 50 mg 1X ONCE PO 09/04/20 21:00 09/04/20 21:01 DC 09/04/20 21:21 Olanzapine (ZyPREXA ZYDIS) 5 mg 1X ONCE PO 09/27/20 18:30 09/27/20 18:31 DC 09/27/20 18:30 Divalproex Sodium (Depakote Sprinkles) 125 mg 0900,1700 PO 09/28/20 17:00 10/12/20 17:08 DC 10/12/20 08:18 Furosemide (Lasix) 80 mg 1X ONCE PO 09/30/20 15:30 09/30/20 15:31 DC 09/30/20 16:00 Furosemide (Lasix) 80 mg DAILY PO 10/01/20 09:00 11/08/20 18:17 DC 11/08/20 08:39 Potassium Chloride (Klor-Con) 20 meq DAILYWBKFT PO 10/01/20 08:00 11/13/20 08:12 Trazodone HCl (Desyrel) 50 mg PRN QHS PRN PO INSOMNIA 10/08/20 16:15 11/07/20 18:18 DC 10/09/20 20:15 Divalproex Sodium (Depakote Sprinkles) 125 mg 0900,1300,1700,2100 PO 10/12/20 17:50 10/21/20 17:01 DC 10/21/20 12:26 Divalproex Sodium (Depakote Sprinkles) 125 mg 1300,1700 PO 10/21/20 17:00 10/25/20 17:17 DC 10/25/20 15:29 Divalproex Sodium (Depakote Sprinkles) 250 mg 0900,2100 PO 10/21/20 21:00 10/25/20 17:17 DC 10/25/20 09:09 Divalproex Sodium (Depakote Sprinkles) 250 mg QID PO 10/25/20 17:15 11/13/20 19:45 Trazodone HCl (Desyrel) 50 mg HS PO 11/07/20 21:00 11/13/20 19:45 Furosemide (Lasix) 40 mg DAILY PO 11/09/20 09:00 11/13/20 08:11 I have reviewed the current psychotropics carefully including drug interactions. Risk benefit ratio favors no change other than as noted in my dictated progress note. Diagnosis: Problems: (1) Impulse control disorder, unspecified (2) Anxiety disorder, unspecified (3) Dementia, vascular, with depression (4) Dementia, vascular, with delusions (5) Dementia in Alzheimer's disease with depression (6) Dementia in Alzheimer's disease with delusions (7) Dementia of the Alzheimer's type with early onset with behavioral disturbance (8) Major neurocognitive disorder VERENA AGUSTIN MD Nov 14, 2020 06:23
[2020-11-14] MEDS: PANTOPRAZOLE 40 MG TABLET. PO SCH (08:20)
[2020-11-14] MEDS: CETIRIZINE HCL 10 MG TABLET PO SCH (08:20)
[2020-11-14] MEDS: ASPIRIN CHEWABLE 81 MG TABLET. PO SCH (08:20)
[2020-11-14] MEDS: POTASSIUM CHLORIDE 20 MEQ TABLET.ER. PO SCH (08:20)
[2020-11-14] MEDS: FUROSEMIDE 40 MG TABLET PO SCH (08:21)
[2020-11-14] MEDS: MULTIVITAMIN with MINERAL TABLET. PO SCH (08:21)
[2020-11-14] MEDS: DIVALPROEX 125 MG CAP.SPRINK PO SCH ×4 (08:21→20:10)
[2020-11-14 15:42] VITALS: BP 111/72
[2020-11-14] MEDS: TAMSULOSIN 0.4 MG CAP.ER.24H. PO SCH (20:10)
[2020-11-14] MEDS: ATORVASTATIN CALCIUM 20 MG TABLET PO SCH (20:10)
[2020-11-14] MEDS: traZODone 50 MG TABLET. PO SCH (20:10)
--- NOTE | 2020-11-14 22:13 | PDOC ---
Exam Note: Fercho Note: Please also refer to the separate dictated note~for this date of service dictated separately.~Patient seen individually. Discussed the patient with Nursing staff reviewed the chart.~Reviewed interim history and current functioning. Reviewed vital signs,~Labs/ Radiology~and current medications noted below. Continue current treatment with the changes noted in the dictated addendum note Assessment: Vital Signs/I&O: Vital Signs Date Time Temp Pulse Resp B/P (MAP) Pulse Ox O2 Delivery O2 Flow Rate FiO2 11/14/20 15:42 98.4 82 16 111/72 (85) 96 11/11/20 15:56 Room Air I & O 11/13/20 11/13/20 11/14/20 15:00 23:00 07:00 Intake Total 960 ml 480 ml Balance 960 ml 480 ml Current Medications: Meds: Current Medications Medications (Trade) Dose Ordered Sig/Ashvin Route PRN Reason Start Time Stop Time Status Last Admin Dose Admin Acetaminophen (Tylenol) 650 mg PRN Q6HRS PRN PO MILD PAIN / TEMP > 100.3'F 08/24/20 18:15 11/14/20 05:44 Multi-Ingredient Ointment (Analgesic [place]) 1 césar PRN QID PRN TP MUSCLE PAIN 08/24/20 18:15 Al Hydroxide/Mg Hydroxide (Mylanta Plus Xs) 15 ml PRN AFTMEALHC PRN PO DYSPEPSIA 08/24/20 18:15 Magnesium Hydroxide (Milk Of Magnesia) 2,400 mg PRN QHS PRN PO CONSTIPATION 08/24/20 18:15 11/10/20 16:58 Aspirin (Aspirin Chewable) 81 mg DAILY PO 08/25/20 09:00 11/14/20 08:20 Cetirizine HCl (ZyrTEC) 10 mg DAILY08 PO 08/25/20 08:00 11/14/20 08:20 Donepezil HCl (Aricept) 23 mg QHS PO 08/24/20 21:00 08/28/20 15:38 DC 08/27/20 20:34 Fluoxetine HCl (PROzac) 20 mg DAILY PO 08/25/20 09:00 11/14/20 08:21 Lorazepam (Ativan) 1 mg PRN Q4HRS PRN PO ANXIETY / AGITATION 08/24/20 18:45 09/04/20 16:12 DC 09/04/20 01:29 Atorvastatin Calcium (Lipitor) 40 mg QHS PO 08/24/20 21:00 11/14/20 20:10 Pantoprazole Sodium (Protonix) 40 mg DAILY08 PO 08/25/20 08:00 11/14/20 08:20 Multivitamins/ Calcium (Thera-M Plus) 1 tab DAILY PO 08/25/20 09:00 11/14/20 08:21 Mupirocin (Bactroban) 1 césar BID92 TP 08/25/20 09:00 09/03/20 12:35 DC 09/01/20 14:00 Fish Oil (Fish Oil) 1,000 mg DAILY PO 08/25/20 09:00 11/08/20 18:17 DC 11/07/20 08:19 Olanzapine (ZyPREXA ZYDIS) 2.5 mg PRN Q2HR PRN PO PSYCHOSIS 08/24/20 19:45 10/25/20 15:29 Sertraline HCl (Zoloft) 25 mg DAILY PO 08/26/20 09:00 08/28/20 21:00 DC 08/28/20 08:37 Sertraline HCl (Zoloft) 50 mg DAILY PO 08/29/20 09:00 09/06/20 18:40 DC 09/04/20 08:58 Tamsulosin HCl (Flomax) 0.4 mg QHS PO 08/28/20 21:00 11/14/20 20:10 Mupirocin (Bactroban) 1 césar PRN BID PRN TP RASH 09/03/20 12:45 Diphenhydramine HCl (Benadryl) 50 mg 1X ONCE PO 09/04/20 21:00 09/04/20 21:01 DC 09/04/20 21:21 Olanzapine (ZyPREXA ZYDIS) 5 mg 1X ONCE PO 09/27/20 18:30 09/27/20 18:31 DC 09/27/20 18:30 Divalproex Sodium (Depakote Sprinkles) 125 mg 0900,1700 PO 09/28/20 17:00 10/12/20 17:08 DC 10/12/20 08:18 Furosemide (Lasix) 80 mg 1X ONCE PO 09/30/20 15:30 09/30/20 15:31 DC 09/30/20 16:00 Furosemide (Lasix) 80 mg DAILY PO 10/01/20 09:00 11/08/20 18:17 DC 11/08/20 08:39 Potassium Chloride (Klor-Con) 20 meq DAILYWBKFT PO 10/01/20 08:00 11/14/20 08:20 Trazodone HCl (Desyrel) 50 mg PRN QHS PRN PO INSOMNIA 10/08/20 16:15 11/07/20 18:18 DC 10/09/20 20:15 Divalproex Sodium (Depakote Sprinkles) 125 mg 0900,1300,1700,2100 PO 10/12/20 17:50 10/21/20 17:01 DC 10/21/20 12:26 Divalproex Sodium (Depakote Sprinkles) 125 mg 1300,1700 PO 10/21/20 17:00 10/25/20 17:17 DC 10/25/20 15:29 Divalproex Sodium (Depakote Sprinkles) 250 mg 0900,2100 PO 10/21/20 21:00 10/25/20 17:17 DC 10/25/20 09:09 Divalproex Sodium (Depakote Sprinkles) 250 mg QID PO 10/25/20 17:15 11/14/20 20:10 Trazodone HCl (Desyrel) 50 mg HS PO 11/07/20 21:00 11/14/20 20:10 Furosemide (Lasix) 40 mg DAILY PO 11/09/20 09:00 11/14/20 08:21 I have reviewed the current psychotropics carefully including drug interactions. Risk benefit ratio favors no change other than as noted in my dictated progress note. Diagnosis: Problems: (1) Impulse control disorder, unspecified (2) Anxiety disorder, unspecified (3) Dementia, vascular, with depression (4) Dementia, vascular, with delusions (5) Dementia in Alzheimer's disease with depression (6) Dementia in Alzheimer's disease with delusions (7) Dementia of the Alzheimer's type with early onset with behavioral disturbance (8) Major neurocognitive disorder VERENA AGUSTIN MD Nov 14, 2020 22:13
[2020-11-15 05:48] VITALS: BP 96/58
[2020-11-15 06:05] LABS: BASO # 0.1 x10^3/uL (0.0-0.2); BASO % 1 % (0-3); EOS # 0.3 x10^3/uL (0.0-0.7); EOS % 4 % (0-3); HEMATOCRIT 39.6 % (39.0-53.0); HEMOGLOBIN 13.1 g/dL (13.0-17.5); LYMPH # 1.5 x10^3/uL (1.0-4.8); LYMPH % 23 % (24-48); MEAN CORPUSCULAR HEMOGLOBIN 29 pg (25-35); MEAN CORPUSCULAR HGB CONC 33 g/dL (31-37); MEAN CORPUSCULAR VOLUME 89 fL (79-100); MONO # 0.5 x10^3/uL (0.0-1.1); MONO % 8 % (0-9); NEUT # 4.2 x10^3uL (1.8-7.7); NEUT % 64 % (31-73); PLATELET COUNT 158 x10^3/uL (140-400); RED BLOOD COUNT 4.47 x10^6/uL (4.30-5.70); WHITE BLOOD COUNT 6.6 x10^3/uL (4.0-11.0)
[2020-11-15 06:18] LABS: ALBUMIN 3.3 g/dL (3.4-5.0); CALCIUM 8.4 mg/dL (8.5-10.1); CREATININE 1.7 mg/dL (0.7-1.3); GFR 39.7; POTASSIUM 3.9 mmol/L (3.5-5.1); TOTAL BILIRUBIN 0.6 mg/dL (0.2-1.0); TOTAL PROTEIN 6.6 g/dL (6.4-8.2)
[2020-11-15] MEDS: CETIRIZINE HCL 10 MG TABLET PO SCH (09:23)
[2020-11-15] MEDS: ASPIRIN CHEWABLE 81 MG TABLET. PO SCH (09:23)
[2020-11-15] MEDS: POTASSIUM CHLORIDE 20 MEQ TABLET.ER. PO SCH (09:23)
[2020-11-15] MEDS: PANTOPRAZOLE 40 MG TABLET. PO SCH (09:23)
[2020-11-15] MEDS: MULTIVITAMIN with MINERAL TABLET. PO SCH (09:24)
[2020-11-15] MEDS: DIVALPROEX 125 MG CAP.SPRINK PO SCH ×4 (09:24→19:48)
[2020-11-15] MEDS: FUROSEMIDE 40 MG TABLET PO SCH (09:24)
[2020-11-15 15:28] VITALS: BP 116/82
[2020-11-15] MEDS: traZODone 50 MG TABLET. PO SCH (19:48)
[2020-11-15] MEDS: ATORVASTATIN CALCIUM 20 MG TABLET PO SCH (19:48)
[2020-11-15] MEDS: TAMSULOSIN 0.4 MG CAP.ER.24H. PO SCH (19:48)
--- NOTE | 2020-11-15 22:10 | PDOC ---
Exam Note: Fercho Note: Please also refer to the separate dictated note~for this date of service dictated separately.~Patient seen individually. Discussed the patient with Nursing staff reviewed the chart.~Reviewed interim history and current functioning. Reviewed vital signs,~Labs/ Radiology~and current medications noted below. Continue current treatment with the changes noted in the dictated addendum note Assessment: Vital Signs/I&O: Vital Signs Date Time Temp Pulse Resp B/P (MAP) Pulse Ox O2 Delivery O2 Flow Rate FiO2 11/15/20 15:28 98.0 64 16 116/82 (93) 97 11/11/20 15:56 Room Air I & O 11/14/20 11/14/20 11/15/20 15:00 23:00 07:00 Intake Total 720 ml 600 ml Balance 720 ml 600 ml Labs: Laboratory Tests Test 11/15/20 05:50 White Blood Count 6.6 x10^3/uL (4.0-11.0) Red Blood Count 4.47 x10^6/uL (4.30-5.70) Hemoglobin 13.1 g/dL (13.0-17.5) Hematocrit 39.6 % (39.0-53.0) Mean Corpuscular Volume 89 fL (79-100) Mean Corpuscular Hemoglobin 29 pg (25-35) Mean Corpuscular Hemoglobin Concent 33 g/dL (31-37) Red Cell Distribution Width 15.0 % (11.5-14.5) H Platelet Count 158 x10^3/uL (140-400) Neutrophils (%) (Auto) 64 % (31-73) Lymphocytes (%) (Auto) 23 % (24-48) L Monocytes (%) (Auto) 8 % (0-9) Eosinophils (%) (Auto) 4 % (0-3) H Basophils (%) (Auto) 1 % (0-3) Neutrophils # (Auto) 4.2 x10^3uL (1.8-7.7) Lymphocytes # (Auto) 1.5 x10^3/uL (1.0-4.8) Monocytes # (Auto) 0.5 x10^3/uL (0.0-1.1) Eosinophils # (Auto) 0.3 x10^3/uL (0.0-0.7) Basophils # (Auto) 0.1 x10^3/uL (0.0-0.2) Sodium Level 141 mmol/L (136-145) Potassium Level 3.9 mmol/L (3.5-5.1) Chloride Level 103 mmol/L (98-107) Carbon Dioxide Level 31 mmol/L (21-32) Anion Gap 7 (6-14) Blood Urea Nitrogen 32 mg/dL (8-26) H Creatinine 1.7 mg/dL (0.7-1.3) H Estimated GFR (Cockcroft-Gault) 39.7 BUN/Creatinine Ratio 19 (6-20) Glucose Level 95 mg/dL (70-99) Calcium Level 8.4 mg/dL (8.5-10.1) L Total Bilirubin 0.6 mg/dL (0.2-1.0) Aspartate Amino Transferase (AST) 23 U/L (15-37) Alanine Aminotransferase (ALT) 28 U/L (16-63) Alkaline Phosphatase 56 U/L (46-116) Total Protein 6.6 g/dL (6.4-8.2) Albumin 3.3 g/dL (3.4-5.0) L Albumin/Globulin Ratio 1.0 (1.0-1.7) Current Medications: Meds: Laboratory Tests Test 11/15/20 05:50 White Blood Count 6.6 x10^3/uL Red Blood Count 4.47 x10^6/uL Hemoglobin 13.1 g/dL Hematocrit 39.6 % Mean Corpuscular Volume 89 fL Mean Corpuscular Hemoglobin 29 pg Mean Corpuscular Hemoglobin Concent 33 g/dL Red Cell Distribution Width 15.0 % Platelet Count 158 x10^3/uL Neutrophils (%) (Auto) 64 % Lymphocytes (%) (Auto) 23 % Monocytes (%) (Auto) 8 % Eosinophils (%) (Auto) 4 % Basophils (%) (Auto) 1 % Neutrophils # (Auto) 4.2 x10^3uL Lymphocytes # (Auto) 1.5 x10^3/uL Monocytes # (Auto) 0.5 x10^3/uL Eosinophils # (Auto) 0.3 x10^3/uL Basophils # (Auto) 0.1 x10^3/uL Sodium Level 141 mmol/L Potassium Level 3.9 mmol/L Chloride Level 103 mmol/L Carbon Dioxide Level 31 mmol/L Anion Gap 7 Blood Urea Nitrogen 32 mg/dL Creatinine 1.7 mg/dL Estimated GFR (Cockcroft-Gault) 39.7 BUN/Creatinine Ratio 19 Glucose Level 95 mg/dL Calcium Level 8.4 mg/dL Total Bilirubin 0.6 mg/dL Aspartate Amino Transf (AST/SGOT) 23 U/L Alanine Aminotransferase (ALT/SGPT) 28 U/L Alkaline Phosphatase 56 U/L Total Protein 6.6 g/dL Albumin 3.3 g/dL Albumin/Globulin Ratio 1.0 Current Medications Medications (Trade) Dose Ordered Sig/Ashvin Route PRN Reason Start Time Stop Time Status Last Admin Dose Admin Acetaminophen (Tylenol) 650 mg PRN Q6HRS PRN PO MILD PAIN / TEMP > 100.3'F 08/24/20 18:15 11/14/20 05:44 Multi-Ingredient Ointment (Analgesic [place]) 1 césar PRN QID PRN TP MUSCLE PAIN 08/24/20 18:15 Al Hydroxide/Mg Hydroxide (Mylanta Plus Xs) 15 ml PRN AFTMEALHC PRN PO DYSPEPSIA 08/24/20 18:15 Magnesium Hydroxide (Milk Of Magnesia) 2,400 mg PRN QHS PRN PO CONSTIPATION 08/24/20 18:15 11/10/20 16:58 Aspirin (Aspirin Chewable) 81 mg DAILY PO 08/25/20 09:00 11/15/20 09:23 Cetirizine HCl (ZyrTEC) 10 mg DAILY08 PO 08/25/20 08:00 11/15/20 09:23 Donepezil HCl (Aricept) 23 mg QHS PO 08/24/20 21:00 08/28/20 15:38 DC 08/27/20 20:34 Fluoxetine HCl (PROzac) 20 mg DAILY PO 08/25/20 09:00 11/15/20 09:23 Lorazepam (Ativan) 1 mg PRN Q4HRS PRN PO ANXIETY / AGITATION 08/24/20 18:45 09/04/20 16:12 DC 09/04/20 01:29 Atorvastatin Calcium (Lipitor) 40 mg QHS PO 08/24/20 21:00 11/15/20 19:48 Pantoprazole Sodium (Protonix) 40 mg DAILY08 PO 08/25/20 08:00 11/15/20 09:23 Multivitamins/ Calcium (Thera-M Plus) 1 tab DAILY PO 08/25/20 09:00 11/15/20 09:24 Mupirocin (Bactroban) 1 césar BID92 TP 08/25/20 09:00 09/03/20 12:35 DC 09/01/20 14:00 Fish Oil (Fish Oil) 1,000 mg DAILY PO 08/25/20 09:00 11/08/20 18:17 DC 11/07/20 08:19 Olanzapine (ZyPREXA ZYDIS) 2.5 mg PRN Q2HR PRN PO PSYCHOSIS 08/24/20 19:45 10/25/20 15:29 Sertraline HCl (Zoloft) 25 mg DAILY PO 08/26/20 09:00 08/28/20 21:00 DC 08/28/20 08:37 Sertraline HCl (Zoloft) 50 mg DAILY PO 08/29/20 09:00 09/06/20 18:40 DC 09/04/20 08:58 Tamsulosin HCl (Flomax) 0.4 mg QHS PO 08/28/20 21:00 11/15/20 19:48 Mupirocin (Bactroban) 1 césar PRN BID PRN TP RASH 09/03/20 12:45 Diphenhydramine HCl (Benadryl) 50 mg 1X ONCE PO 09/04/20 21:00 09/04/20 21:01 DC 09/04/20 21:21 Olanzapine (ZyPREXA ZYDIS) 5 mg 1X ONCE PO 09/27/20 18:30 09/27/20 18:31 DC 09/27/20 18:30 Divalproex Sodium (Depakote Sprinkles) 125 mg 0900,1700 PO 09/28/20 17:00 10/12/20 17:08 DC 10/12/20 08:18 Furosemide (Lasix) 80 mg 1X ONCE PO 09/30/20 15:30 09/30/20 15:31 DC 09/30/20 16:00 Furosemide (Lasix) 80 mg DAILY PO 10/01/20 09:00 11/08/20 18:17 DC 11/08/20 08:39 Potassium Chloride (Klor-Con) 20 meq DAILYWBKFT PO 10/01/20 08:00 11/15/20 09:23 Trazodone HCl (Desyrel) 50 mg PRN QHS PRN PO INSOMNIA 10/08/20 16:15 11/07/20 18:18 DC 10/09/20 20:15 Divalproex Sodium (Depakote Sprinkles) 125 mg 0900,1300,1700,2100 PO 10/12/20 17:50 10/21/20 17:01 DC 10/21/20 12:26 Divalproex Sodium (Depakote Sprinkles) 125 mg 1300,1700 PO 10/21/20 17:00 10/25/20 17:17 DC 10/25/20 15:29 Divalproex Sodium (Depakote Sprinkles) 250 mg 0900,2100 PO 10/21/20 21:00 10/25/20 17:17 DC 10/25/20 09:09 Divalproex Sodium (Depakote Sprinkles) 250 mg QID PO 10/25/20 17:15 11/15/20 19:48 Trazodone HCl (Desyrel) 50 mg HS PO 11/07/20 21:00 11/15/20 19:48 Furosemide (Lasix) 40 mg DAILY PO 11/09/20 09:00 11/15/20 09:24 I have reviewed the current psychotropics carefully including drug interactions. Risk benefit ratio favors no change other than as noted in my dictated progress note. Diagnosis: Problems: (1) Impulse control disorder, unspecified (2) Anxiety disorder, unspecified (3) Dementia, vascular, with depression (4) Dementia, vascular, with delusions (5) Dementia in Alzheimer's disease with depression (6) Dementia in Alzheimer's disease with delusions (7) Dementia of the Alzheimer's type with early onset with behavioral disturbance (8) Major neurocognitive disorder VERENA AGUSTIN MD Nov 15, 2020 22:10
[2020-11-16 05:42] VITALS: BP 118/73
[2020-11-16] MEDS: ASPIRIN CHEWABLE 81 MG TABLET. PO SCH (07:57)
[2020-11-16] MEDS: CETIRIZINE HCL 10 MG TABLET PO SCH (07:57)
[2020-11-16] MEDS: MULTIVITAMIN with MINERAL TABLET. PO SCH (07:58)
[2020-11-16] MEDS: DIVALPROEX 125 MG CAP.SPRINK PO SCH ×4 (07:58→19:25)
[2020-11-16] MEDS: POTASSIUM CHLORIDE 20 MEQ TABLET.ER. PO SCH (07:58)
[2020-11-16] MEDS: PANTOPRAZOLE 40 MG TABLET. PO SCH (07:58)
[2020-11-16] MEDS: FUROSEMIDE 40 MG TABLET PO SCH (07:58)
--- NOTE | 2020-11-16 08:55 | PDOC ---
Exam Note: Fercho Note: This note is a late entry for 11/14/2020 covers elements not covered in my initial note. Subjective: The patient was seen individually in the evening of 11/14/2020 with Ivan ABREU, discussed and reviewed the chart. He slept 8 hours previous night. I met with him in the dayroom. He is pleasant, smiling, oblivious to his situation. Review of Systems: No CV, , pulmonary, eye, ENT system symptoms on review. Mental Status Exam: The patient is oriented to himself. Insight and judgment, recent and remote memory, attention and concentration, fund of knowledge is poor consistent with his diagnoses. Laboratory Data: Reviewed. Impression: Major neurocognitive disorder Alzheimer vascular with delusion, depression, behavioral disturbance. Anxiety disorder unspecified. Impulse control disorder unspecified. Plan: No change from initial note. Assessment: Vital Signs/I&O: Vital Signs Date Time Temp Pulse Resp B/P (MAP) Pulse Ox O2 Delivery O2 Flow Rate FiO2 11/16/20 05:42 97.0 68 18 118/73 (88) 100 Room Air I & O 11/15/20 11/15/20 11/16/20 15:00 23:00 07:00 Intake Total 480 ml 480 ml Balance 480 ml 480 ml Current Medications: Meds: Current Medications Medications (Trade) Dose Ordered Sig/Ashvin Route PRN Reason Start Time Stop Time Status Last Admin Dose Admin Acetaminophen (Tylenol) 650 mg PRN Q6HRS PRN PO MILD PAIN / TEMP > 100.3'F 08/24/20 18:15 11/14/20 05:44 Multi-Ingredient Ointment (Analgesic [place]) 1 césar PRN QID PRN TP MUSCLE PAIN 08/24/20 18:15 Al Hydroxide/Mg Hydroxide (Mylanta Plus Xs) 15 ml PRN AFTMEALHC PRN PO DYSPEPSIA 08/24/20 18:15 Magnesium Hydroxide (Milk Of Magnesia) 2,400 mg PRN QHS PRN PO CONSTIPATION 08/24/20 18:15 11/10/20 16:58 Aspirin (Aspirin Chewable) 81 mg DAILY PO 08/25/20 09:00 11/16/20 07:57 Cetirizine HCl (ZyrTEC) 10 mg DAILY08 PO 08/25/20 08:00 11/16/20 07:57 Donepezil HCl (Aricept) 23 mg QHS PO 08/24/20 21:00 08/28/20 15:38 DC 08/27/20 20:34 Fluoxetine HCl (PROzac) 20 mg DAILY PO 08/25/20 09:00 11/16/20 07:58 Lorazepam (Ativan) 1 mg PRN Q4HRS PRN PO ANXIETY / AGITATION 08/24/20 18:45 09/04/20 16:12 DC 09/04/20 01:29 Atorvastatin Calcium (Lipitor) 40 mg QHS PO 08/24/20 21:00 11/15/20 19:48 Pantoprazole Sodium (Protonix) 40 mg DAILY08 PO 08/25/20 08:00 11/16/20 07:58 Multivitamins/ Calcium (Thera-M Plus) 1 tab DAILY PO 08/25/20 09:00 11/16/20 07:58 Mupirocin (Bactroban) 1 césar BID92 TP 08/25/20 09:00 09/03/20 12:35 DC 09/01/20 14:00 Fish Oil (Fish Oil) 1,000 mg DAILY PO 08/25/20 09:00 11/08/20 18:17 DC 11/07/20 08:19 Olanzapine (ZyPREXA ZYDIS) 2.5 mg PRN Q2HR PRN PO PSYCHOSIS 08/24/20 19:45 10/25/20 15:29 Sertraline HCl (Zoloft) 25 mg DAILY PO 08/26/20 09:00 08/28/20 21:00 DC 08/28/20 08:37 Sertraline HCl (Zoloft) 50 mg DAILY PO 08/29/20 09:00 09/06/20 18:40 DC 09/04/20 08:58 Tamsulosin HCl (Flomax) 0.4 mg QHS PO 08/28/20 21:00 11/15/20 19:48 Mupirocin (Bactroban) 1 césar PRN BID PRN TP RASH 09/03/20 12:45 Diphenhydramine HCl (Benadryl) 50 mg 1X ONCE PO 09/04/20 21:00 09/04/20 21:01 DC 09/04/20 21:21 Olanzapine (ZyPREXA ZYDIS) 5 mg 1X ONCE PO 09/27/20 18:30 09/27/20 18:31 DC 09/27/20 18:30 Divalproex Sodium (Depakote Sprinkles) 125 mg 0900,1700 PO 09/28/20 17:00 10/12/20 17:08 DC 10/12/20 08:18 Furosemide (Lasix) 80 mg 1X ONCE PO 09/30/20 15:30 09/30/20 15:31 DC 09/30/20 16:00 Furosemide (Lasix) 80 mg DAILY PO 10/01/20 09:00 11/08/20 18:17 DC 11/08/20 08:39 Potassium Chloride (Klor-Con) 20 meq DAILYWBKFT PO 10/01/20 08:00 11/16/20 07:58 Trazodone HCl (Desyrel) 50 mg PRN QHS PRN PO INSOMNIA 10/08/20 16:15 11/07/20 18:18 DC 10/09/20 20:15 Divalproex Sodium (Depakote Sprinkles) 125 mg 0900,1300,1700,2100 PO 10/12/20 17:50 10/21/20 17:01 DC 10/21/20 12:26 Divalproex Sodium (Depakote Sprinkles) 125 mg 1300,1700 PO 10/21/20 17:00 10/25/20 17:17 DC 10/25/20 15:29 Divalproex Sodium (Depakote Sprinkles) 250 mg 0900,2100 PO 10/21/20 21:00 10/25/20 17:17 DC 10/25/20 09:09 Divalproex Sodium (Depakote Sprinkles) 250 mg QID PO 10/25/20 17:15 11/16/20 07:58 Trazodone HCl (Desyrel) 50 mg HS PO 11/07/20 21:00 11/15/20 19:48 Furosemide (Lasix) 40 mg DAILY PO 11/09/20 09:00 11/16/20 07:58 I have reviewed the current psychotropics carefully including drug interactions. Risk benefit ratio favors no change other than as noted in my dictated progress note. Diagnosis: Problems: (1) Impulse control disorder, unspecified (2) Anxiety disorder, unspecified (3) Dementia, vascular, with depression (4) Dementia, vascular, with delusions (5) Dementia in Alzheimer's disease with depression (6) Dementia in Alzheimer's disease with delusions (7) Dementia of the Alzheimer's type with early onset with behavioral disturbance (8) Major neurocognitive disorder VERENA AGUSTIN MD Nov 16, 2020 08:55
--- NOTE | 2020-11-16 09:22 | PDOC ---
Exam Note: Fercho Note: This note is a late entry for 11/15/2020 covers elements not covered in my initial note. Subjective: The patient was seen individually in the evening of 11/15/2020 with Ivan ABREU, discussed and reviewed the chart. He slept 6-1/2 hours previous night. He has not been agitated or aggressive. Social service staff are actively seeking placement and he will be transitioned as soon as one is available. Review of Systems: No CV, , pulmonary, eye, ENT system symptoms on review. Mental Status Exam: The patient is oriented to himself. Insight and judgment, recent and remote memory, attention and concentration, fund of knowledge is poor consistent with his diagnoses. Laboratory Data: Reviewed. Impression: Major neurocognitive disorder Alzheimer vascular with delusion, depression, behavioral disturbance. Anxiety disorder unspecified. Impulse control disorder unspecified. Plan: No change from initial note. Assessment: Vital Signs/I&O: Vital Signs Date Time Temp Pulse Resp B/P (MAP) Pulse Ox O2 Delivery O2 Flow Rate FiO2 11/16/20 05:42 97.0 68 18 118/73 (88) 100 Room Air I & O 11/15/20 11/15/20 11/16/20 15:00 23:00 07:00 Intake Total 480 ml 480 ml Balance 480 ml 480 ml Current Medications: Meds: Current Medications Medications (Trade) Dose Ordered Sig/Ashvin Route PRN Reason Start Time Stop Time Status Last Admin Dose Admin Acetaminophen (Tylenol) 650 mg PRN Q6HRS PRN PO MILD PAIN / TEMP > 100.3'F 08/24/20 18:15 11/14/20 05:44 Multi-Ingredient Ointment (Analgesic [place]) 1 césar PRN QID PRN TP MUSCLE PAIN 08/24/20 18:15 Al Hydroxide/Mg Hydroxide (Mylanta Plus Xs) 15 ml PRN AFTMEALHC PRN PO DYSPEPSIA 08/24/20 18:15 Magnesium Hydroxide (Milk Of Magnesia) 2,400 mg PRN QHS PRN PO CONSTIPATION 08/24/20 18:15 11/10/20 16:58 Aspirin (Aspirin Chewable) 81 mg DAILY PO 08/25/20 09:00 11/16/20 07:57 Cetirizine HCl (ZyrTEC) 10 mg DAILY08 PO 08/25/20 08:00 11/16/20 07:57 Donepezil HCl (Aricept) 23 mg QHS PO 08/24/20 21:00 08/28/20 15:38 DC 08/27/20 20:34 Fluoxetine HCl (PROzac) 20 mg DAILY PO 08/25/20 09:00 11/16/20 07:58 Lorazepam (Ativan) 1 mg PRN Q4HRS PRN PO ANXIETY / AGITATION 08/24/20 18:45 09/04/20 16:12 DC 09/04/20 01:29 Atorvastatin Calcium (Lipitor) 40 mg QHS PO 08/24/20 21:00 11/15/20 19:48 Pantoprazole Sodium (Protonix) 40 mg DAILY08 PO 08/25/20 08:00 11/16/20 07:58 Multivitamins/ Calcium (Thera-M Plus) 1 tab DAILY PO 08/25/20 09:00 11/16/20 07:58 Mupirocin (Bactroban) 1 césar BID92 TP 08/25/20 09:00 09/03/20 12:35 DC 09/01/20 14:00 Fish Oil (Fish Oil) 1,000 mg DAILY PO 08/25/20 09:00 11/08/20 18:17 DC 11/07/20 08:19 Olanzapine (ZyPREXA ZYDIS) 2.5 mg PRN Q2HR PRN PO PSYCHOSIS 08/24/20 19:45 10/25/20 15:29 Sertraline HCl (Zoloft) 25 mg DAILY PO 08/26/20 09:00 08/28/20 21:00 DC 08/28/20 08:37 Sertraline HCl (Zoloft) 50 mg DAILY PO 08/29/20 09:00 09/06/20 18:40 DC 09/04/20 08:58 Tamsulosin HCl (Flomax) 0.4 mg QHS PO 08/28/20 21:00 11/15/20 19:48 Mupirocin (Bactroban) 1 césar PRN BID PRN TP RASH 09/03/20 12:45 Diphenhydramine HCl (Benadryl) 50 mg 1X ONCE PO 09/04/20 21:00 09/04/20 21:01 DC 09/04/20 21:21 Olanzapine (ZyPREXA ZYDIS) 5 mg 1X ONCE PO 09/27/20 18:30 09/27/20 18:31 DC 09/27/20 18:30 Divalproex Sodium (Depakote Sprinkles) 125 mg 0900,1700 PO 09/28/20 17:00 10/12/20 17:08 DC 10/12/20 08:18 Furosemide (Lasix) 80 mg 1X ONCE PO 09/30/20 15:30 09/30/20 15:31 DC 09/30/20 16:00 Furosemide (Lasix) 80 mg DAILY PO 10/01/20 09:00 11/08/20 18:17 DC 11/08/20 08:39 Potassium Chloride (Klor-Con) 20 meq DAILYWBKFT PO 10/01/20 08:00 11/16/20 07:58 Trazodone HCl (Desyrel) 50 mg PRN QHS PRN PO INSOMNIA 10/08/20 16:15 11/07/20 18:18 DC 10/09/20 20:15 Divalproex Sodium (Depakote Sprinkles) 125 mg 0900,1300,1700,2100 PO 10/12/20 17:50 10/21/20 17:01 DC 10/21/20 12:26 Divalproex Sodium (Depakote Sprinkles) 125 mg 1300,1700 PO 10/21/20 17:00 10/25/20 17:17 DC 10/25/20 15:29 Divalproex Sodium (Depakote Sprinkles) 250 mg 0900,2100 PO 10/21/20 21:00 10/25/20 17:17 DC 10/25/20 09:09 Divalproex Sodium (Depakote Sprinkles) 250 mg QID PO 10/25/20 17:15 11/16/20 07:58 Trazodone HCl (Desyrel) 50 mg HS PO 11/07/20 21:00 11/15/20 19:48 Furosemide (Lasix) 40 mg DAILY PO 11/09/20 09:00 11/16/20 07:58 I have reviewed the current psychotropics carefully including drug interactions. Risk benefit ratio favors no change other than as noted in my dictated progress note. Diagnosis: Problems: (1) Impulse control disorder, unspecified (2) Anxiety disorder, unspecified (3) Dementia, vascular, with depression (4) Dementia, vascular, with delusions (5) Dementia in Alzheimer's disease with depression (6) Dementia in Alzheimer's disease with delusions (7) Dementia of the Alzheimer's type with early onset with behavioral disturbance (8) Major neurocognitive disorder VERENA AGUSTIN MD Nov 16, 2020 09:22
[2020-11-16 15:39] VITALS: BP 100/68
[2020-11-16] MEDS: ATORVASTATIN CALCIUM 20 MG TABLET PO SCH (19:24)
[2020-11-16] MEDS: traZODone 50 MG TABLET. PO SCH (19:24)
[2020-11-16] MEDS: TAMSULOSIN 0.4 MG CAP.ER.24H. PO SCH (19:24)
[2020-11-17 06:04] VITALS: BP 110/53
--- NOTE | 2020-11-17 06:38 | PDOC ---
Exam Note: Fercho Note: Late entry for 11/16/2020. Please also refer to the separate dictated note~for this date of service dictated separately.~Patient seen individually. Discussed the patient with Nursing staff reviewed the chart.~Reviewed interim history and current functioning. Reviewed vital signs,~Labs/ Radiology~and current medications noted below. Continue current treatment with the changes noted in the dictated addendum note Assessment: Vital Signs/I&O: Vital Signs Date Time Temp Pulse Resp B/P (MAP) Pulse Ox O2 Delivery O2 Flow Rate FiO2 11/17/20 06:04 97.4 71 20 110/53 (72) 96 Room Air I & O 11/16/20 11/16/20 11/17/20 14:59 22:59 06:59 Intake Total 480 ml 360 ml Balance 480 ml 360 ml Current Medications: Meds: Current Medications Medications (Trade) Dose Ordered Sig/Ashvin Route PRN Reason Start Time Stop Time Status Last Admin Dose Admin Acetaminophen (Tylenol) 650 mg PRN Q6HRS PRN PO MILD PAIN / TEMP > 100.3'F 08/24/20 18:15 11/14/20 05:44 Multi-Ingredient Ointment (Analgesic [place]) 1 césar PRN QID PRN TP MUSCLE PAIN 08/24/20 18:15 Al Hydroxide/Mg Hydroxide (Mylanta Plus Xs) 15 ml PRN AFTMEALHC PRN PO DYSPEPSIA 08/24/20 18:15 Magnesium Hydroxide (Milk Of Magnesia) 2,400 mg PRN QHS PRN PO CONSTIPATION 08/24/20 18:15 11/10/20 16:58 Aspirin (Aspirin Chewable) 81 mg DAILY PO 08/25/20 09:00 11/16/20 07:57 Cetirizine HCl (ZyrTEC) 10 mg DAILY08 PO 08/25/20 08:00 11/16/20 07:57 Donepezil HCl (Aricept) 23 mg QHS PO 08/24/20 21:00 08/28/20 15:38 DC 08/27/20 20:34 Fluoxetine HCl (PROzac) 20 mg DAILY PO 08/25/20 09:00 11/16/20 07:58 Lorazepam (Ativan) 1 mg PRN Q4HRS PRN PO ANXIETY / AGITATION 08/24/20 18:45 09/04/20 16:12 DC 09/04/20 01:29 Atorvastatin Calcium (Lipitor) 40 mg QHS PO 08/24/20 21:00 11/16/20 19:24 Pantoprazole Sodium (Protonix) 40 mg DAILY08 PO 08/25/20 08:00 11/16/20 07:58 Multivitamins/ Calcium (Thera-M Plus) 1 tab DAILY PO 08/25/20 09:00 11/16/20 07:58 Mupirocin (Bactroban) 1 césar BID92 TP 08/25/20 09:00 09/03/20 12:35 DC 09/01/20 14:00 Fish Oil (Fish Oil) 1,000 mg DAILY PO 08/25/20 09:00 11/08/20 18:17 DC 11/07/20 08:19 Olanzapine (ZyPREXA ZYDIS) 2.5 mg PRN Q2HR PRN PO PSYCHOSIS 08/24/20 19:45 11/16/20 12:58 Sertraline HCl (Zoloft) 25 mg DAILY PO 08/26/20 09:00 08/28/20 21:00 DC 08/28/20 08:37 Sertraline HCl (Zoloft) 50 mg DAILY PO 08/29/20 09:00 09/06/20 18:40 DC 09/04/20 08:58 Tamsulosin HCl (Flomax) 0.4 mg QHS PO 08/28/20 21:00 11/16/20 19:24 Mupirocin (Bactroban) 1 césar PRN BID PRN TP RASH 09/03/20 12:45 Diphenhydramine HCl (Benadryl) 50 mg 1X ONCE PO 09/04/20 21:00 09/04/20 21:01 DC 09/04/20 21:21 Olanzapine (ZyPREXA ZYDIS) 5 mg 1X ONCE PO 09/27/20 18:30 09/27/20 18:31 DC 09/27/20 18:30 Divalproex Sodium (Depakote Sprinkles) 125 mg 0900,1700 PO 09/28/20 17:00 10/12/20 17:08 DC 10/12/20 08:18 Furosemide (Lasix) 80 mg 1X ONCE PO 09/30/20 15:30 09/30/20 15:31 DC 09/30/20 16:00 Furosemide (Lasix) 80 mg DAILY PO 10/01/20 09:00 11/08/20 18:17 DC 11/08/20 08:39 Potassium Chloride (Klor-Con) 20 meq DAILYWBKFT PO 10/01/20 08:00 11/16/20 07:58 Trazodone HCl (Desyrel) 50 mg PRN QHS PRN PO INSOMNIA 10/08/20 16:15 11/07/20 18:18 DC 10/09/20 20:15 Divalproex Sodium (Depakote Sprinkles) 125 mg 0900,1300,1700,2100 PO 10/12/20 17:50 10/21/20 17:01 DC 10/21/20 12:26 Divalproex Sodium (Depakote Sprinkles) 125 mg 1300,1700 PO 10/21/20 17:00 10/25/20 17:17 DC 10/25/20 15:29 Divalproex Sodium (Depakote Sprinkles) 250 mg 0900,2100 PO 10/21/20 21:00 10/25/20 17:17 DC 10/25/20 09:09 Divalproex Sodium (Depakote Sprinkles) 250 mg QID PO 10/25/20 17:15 11/16/20 19:25 Trazodone HCl (Desyrel) 50 mg HS PO 11/07/20 21:00 11/16/20 19:24 Furosemide (Lasix) 40 mg DAILY PO 11/09/20 09:00 11/16/20 07:58 I have reviewed the current psychotropics carefully including drug interactions. Risk benefit ratio favors no change other than as noted in my dictated progress note. Diagnosis: Problems: (1) Impulse control disorder, unspecified (2) Anxiety disorder, unspecified (3) Dementia, vascular, with depression (4) Dementia, vascular, with delusions (5) Dementia in Alzheimer's disease with depression (6) Dementia in Alzheimer's disease with delusions (7) Dementia of the Alzheimer's type with early onset with behavioral disturbance (8) Major neurocognitive disorder VERENA AGUSTIN MD Nov 17, 2020 06:38
[2020-11-17] MEDS: MULTIVITAMIN with MINERAL TABLET. PO SCH (08:34)
[2020-11-17] MEDS: PANTOPRAZOLE 40 MG TABLET. PO SCH (08:34)
[2020-11-17] MEDS: CETIRIZINE HCL 10 MG TABLET PO SCH (08:34)
[2020-11-17] MEDS: FUROSEMIDE 40 MG TABLET PO SCH (08:34)
[2020-11-17] MEDS: ASPIRIN CHEWABLE 81 MG TABLET. PO SCH (08:34)
[2020-11-17] MEDS: POTASSIUM CHLORIDE 20 MEQ TABLET.ER. PO SCH (08:35)
[2020-11-17] MEDS: DIVALPROEX 125 MG CAP.SPRINK PO SCH ×4 (08:35→20:18)
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
[2020-11-17 15:33] VITALS: BP 92/58
[2020-11-17] MEDS: traZODone 50 MG TABLET. PO SCH (20:17)
[2020-11-17] MEDS: ATORVASTATIN CALCIUM 20 MG TABLET PO SCH (20:18)
[2020-11-17] MEDS: TAMSULOSIN 0.4 MG CAP.ER.24H. PO SCH (20:18)
--- NOTE | 2020-11-17 22:01 | PDOC ---
Exam Note: Fercho Note: Please also refer to the separate dictated note~for this date of service dictated separately.~Patient seen individually. Discussed the patient with Nursing staff reviewed the chart.~Reviewed interim history and current functioning. Reviewed vital signs,~Labs/ Radiology~and current medications noted below. Continue current treatment with the changes noted in the dictated addendum note Assessment: Vital Signs/I&O: Vital Signs Date Time Temp Pulse Resp B/P (MAP) Pulse Ox O2 Delivery O2 Flow Rate FiO2 11/17/20 15:33 98.5 70 18 92/58 (69) 95 11/17/20 06:04 Room Air I & O 11/16/20 11/16/20 11/17/20 15:00 23:00 07:00 Intake Total 480 ml 360 ml Balance 480 ml 360 ml Current Medications: Meds: Current Medications Medications (Trade) Dose Ordered Sig/Ashvin Route PRN Reason Start Time Stop Time Status Last Admin Dose Admin Acetaminophen (Tylenol) 650 mg PRN Q6HRS PRN PO MILD PAIN / TEMP > 100.3'F 08/24/20 18:15 11/14/20 05:44 Multi-Ingredient Ointment (Analgesic [place]) 1 césar PRN QID PRN TP MUSCLE PAIN 08/24/20 18:15 Al Hydroxide/Mg Hydroxide (Mylanta Plus Xs) 15 ml PRN AFTMEALHC PRN PO DYSPEPSIA 08/24/20 18:15 Magnesium Hydroxide (Milk Of Magnesia) 2,400 mg PRN QHS PRN PO CONSTIPATION 08/24/20 18:15 11/10/20 16:58 Aspirin (Aspirin Chewable) 81 mg DAILY PO 08/25/20 09:00 11/17/20 08:34 Cetirizine HCl (ZyrTEC) 10 mg DAILY08 PO 08/25/20 08:00 11/17/20 08:34 Donepezil HCl (Aricept) 23 mg QHS PO 08/24/20 21:00 08/28/20 15:38 DC 08/27/20 20:34 Fluoxetine HCl (PROzac) 20 mg DAILY PO 08/25/20 09:00 11/17/20 08:34 Lorazepam (Ativan) 1 mg PRN Q4HRS PRN PO ANXIETY / AGITATION 08/24/20 18:45 09/04/20 16:12 DC 09/04/20 01:29 Atorvastatin Calcium (Lipitor) 40 mg QHS PO 08/24/20 21:00 11/17/20 20:18 Pantoprazole Sodium (Protonix) 40 mg DAILY08 PO 08/25/20 08:00 11/17/20 08:34 Multivitamins/ Calcium (Thera-M Plus) 1 tab DAILY PO 08/25/20 09:00 11/17/20 08:34 Mupirocin (Bactroban) 1 césar BID92 TP 08/25/20 09:00 09/03/20 12:35 DC 09/01/20 14:00 Fish Oil (Fish Oil) 1,000 mg DAILY PO 08/25/20 09:00 11/08/20 18:17 DC 11/07/20 08:19 Olanzapine (ZyPREXA ZYDIS) 2.5 mg PRN Q2HR PRN PO PSYCHOSIS 08/24/20 19:45 11/16/20 12:58 Sertraline HCl (Zoloft) 25 mg DAILY PO 08/26/20 09:00 08/28/20 21:00 DC 08/28/20 08:37 Sertraline HCl (Zoloft) 50 mg DAILY PO 08/29/20 09:00 09/06/20 18:40 DC 09/04/20 08:58 Tamsulosin HCl (Flomax) 0.4 mg QHS PO 08/28/20 21:00 11/17/20 20:18 Mupirocin (Bactroban) 1 césar PRN BID PRN TP RASH 09/03/20 12:45 Diphenhydramine HCl (Benadryl) 50 mg 1X ONCE PO 09/04/20 21:00 09/04/20 21:01 DC 09/04/20 21:21 Olanzapine (ZyPREXA ZYDIS) 5 mg 1X ONCE PO 09/27/20 18:30 09/27/20 18:31 DC 09/27/20 18:30 Divalproex Sodium (Depakote Sprinkles) 125 mg 0900,1700 PO 09/28/20 17:00 10/12/20 17:08 DC 10/12/20 08:18 Furosemide (Lasix) 80 mg 1X ONCE PO 09/30/20 15:30 09/30/20 15:31 DC 09/30/20 16:00 Furosemide (Lasix) 80 mg DAILY PO 10/01/20 09:00 11/08/20 18:17 DC 11/08/20 08:39 Potassium Chloride (Klor-Con) 20 meq DAILYWBKFT PO 10/01/20 08:00 11/17/20 08:35 Trazodone HCl (Desyrel) 50 mg PRN QHS PRN PO INSOMNIA 10/08/20 16:15 11/07/20 18:18 DC 10/09/20 20:15 Divalproex Sodium (Depakote Sprinkles) 125 mg 0900,1300,1700,2100 PO 10/12/20 17:50 10/21/20 17:01 DC 10/21/20 12:26 Divalproex Sodium (Depakote Sprinkles) 125 mg 1300,1700 PO 10/21/20 17:00 10/25/20 17:17 DC 10/25/20 15:29 Divalproex Sodium (Depakote Sprinkles) 250 mg 0900,2100 PO 10/21/20 21:00 10/25/20 17:17 DC 10/25/20 09:09 Divalproex Sodium (Depakote Sprinkles) 250 mg QID PO 10/25/20 17:15 11/17/20 20:18 Trazodone HCl (Desyrel) 50 mg HS PO 11/07/20 21:00 11/17/20 20:17 Furosemide (Lasix) 40 mg DAILY PO 11/09/20 09:00 11/17/20 08:34 I have reviewed the current psychotropics carefully including drug interactions. Risk benefit ratio favors no change other than as noted in my dictated progress note. Diagnosis: Problems: (1) Impulse control disorder, unspecified (2) Anxiety disorder, unspecified (3) Dementia, vascular, with depression (4) Dementia, vascular, with delusions (5) Dementia in Alzheimer's disease with depression (6) Dementia in Alzheimer's disease with delusions (7) Dementia of the Alzheimer's type with early onset with behavioral disturbance (8) Major neurocognitive disorder VERENA AGUSTIN MD Nov 17, 2020 22:01
[2020-11-18 06:08] VITALS: BP 116/71
--- NOTE | 2020-11-18 06:14 | PDOC ---
Exam Note: Fercho Note: This note is a late entry for 11/16/2020 covers elements not covered in my initial note. Subjective: The patient was seen individually in the evening of 11/16/2020 with Ivan ABREU, discussed and reviewed the chart. He slept 7-1/4 hours previous night. He has not been agitated or aggressive. Social service staff are actively seeking placement and he will be transitioned as soon as one is available. Review of Systems: No CV, , pulmonary, eye, ENT system symptoms on review. Mental Status Exam: The patient is oriented to himself. Insight and judgment, recent and remote memory, attention and concentration, fund of knowledge is poor consistent with his diagnoses. Laboratory Data: Reviewed. Impression: Major neurocognitive disorder Alzheimer vascular with delusion, depression, behavioral disturbance. Anxiety disorder unspecified. Impulse control disorder unspecified. Plan: No change from initial note. Assessment: Vital Signs/I&O: Vital Signs Date Time Temp Pulse Resp B/P (MAP) Pulse Ox O2 Delivery O2 Flow Rate FiO2 11/18/20 06:08 96.7 73 20 116/71 (86) 98 Room Air I & O 11/17/20 11/17/20 11/18/20 15:00 23:00 07:00 Intake Total 720 ml 740 ml Balance 720 ml 740 ml Current Medications: Meds: Current Medications Medications (Trade) Dose Ordered Sig/Ashvin Route PRN Reason Start Time Stop Time Status Last Admin Dose Admin Acetaminophen (Tylenol) 650 mg PRN Q6HRS PRN PO MILD PAIN / TEMP > 100.3'F 08/24/20 18:15 11/14/20 05:44 Multi-Ingredient Ointment (Analgesic [place]) 1 césar PRN QID PRN TP MUSCLE PAIN 08/24/20 18:15 Al Hydroxide/Mg Hydroxide (Mylanta Plus Xs) 15 ml PRN AFTMEALHC PRN PO DYSPEPSIA 08/24/20 18:15 Magnesium Hydroxide (Milk Of Magnesia) 2,400 mg PRN QHS PRN PO CONSTIPATION 08/24/20 18:15 11/10/20 16:58 Aspirin (Aspirin Chewable) 81 mg DAILY PO 08/25/20 09:00 11/17/20 08:34 Cetirizine HCl (ZyrTEC) 10 mg DAILY08 PO 08/25/20 08:00 11/17/20 08:34 Donepezil HCl (Aricept) 23 mg QHS PO 08/24/20 21:00 08/28/20 15:38 DC 08/27/20 20:34 Fluoxetine HCl (PROzac) 20 mg DAILY PO 08/25/20 09:00 11/17/20 08:34 Lorazepam (Ativan) 1 mg PRN Q4HRS PRN PO ANXIETY / AGITATION 08/24/20 18:45 09/04/20 16:12 DC 09/04/20 01:29 Atorvastatin Calcium (Lipitor) 40 mg QHS PO 08/24/20 21:00 11/17/20 20:18 Pantoprazole Sodium (Protonix) 40 mg DAILY08 PO 08/25/20 08:00 11/17/20 08:34 Multivitamins/ Calcium (Thera-M Plus) 1 tab DAILY PO 08/25/20 09:00 11/17/20 08:34 Mupirocin (Bactroban) 1 césar BID92 TP 08/25/20 09:00 09/03/20 12:35 DC 09/01/20 14:00 Fish Oil (Fish Oil) 1,000 mg DAILY PO 08/25/20 09:00 11/08/20 18:17 DC 11/07/20 08:19 Olanzapine (ZyPREXA ZYDIS) 2.5 mg PRN Q2HR PRN PO PSYCHOSIS 08/24/20 19:45 11/16/20 12:58 Sertraline HCl (Zoloft) 25 mg DAILY PO 08/26/20 09:00 08/28/20 21:00 DC 08/28/20 08:37 Sertraline HCl (Zoloft) 50 mg DAILY PO 08/29/20 09:00 09/06/20 18:40 DC 09/04/20 08:58 Tamsulosin HCl (Flomax) 0.4 mg QHS PO 08/28/20 21:00 11/17/20 20:18 Mupirocin (Bactroban) 1 césar PRN BID PRN TP RASH 09/03/20 12:45 Diphenhydramine HCl (Benadryl) 50 mg 1X ONCE PO 09/04/20 21:00 09/04/20 21:01 DC 09/04/20 21:21 Olanzapine (ZyPREXA ZYDIS) 5 mg 1X ONCE PO 09/27/20 18:30 09/27/20 18:31 DC 09/27/20 18:30 Divalproex Sodium (Depakote Sprinkles) 125 mg 0900,1700 PO 09/28/20 17:00 10/12/20 17:08 DC 10/12/20 08:18 Furosemide (Lasix) 80 mg 1X ONCE PO 09/30/20 15:30 09/30/20 15:31 DC 09/30/20 16:00 Furosemide (Lasix) 80 mg DAILY PO 10/01/20 09:00 11/08/20 18:17 DC 11/08/20 08:39 Potassium Chloride (Klor-Con) 20 meq DAILYWBKFT PO 10/01/20 08:00 11/17/20 08:35 Trazodone HCl (Desyrel) 50 mg PRN QHS PRN PO INSOMNIA 10/08/20 16:15 11/07/20 18:18 DC 10/09/20 20:15 Divalproex Sodium (Depakote Sprinkles) 125 mg 0900,1300,1700,2100 PO 10/12/20 17:50 10/21/20 17:01 DC 10/21/20 12:26 Divalproex Sodium (Depakote Sprinkles) 125 mg 1300,1700 PO 10/21/20 17:00 10/25/20 17:17 DC 10/25/20 15:29 Divalproex Sodium (Depakote Sprinkles) 250 mg 0900,2100 PO 10/21/20 21:00 10/25/20 17:17 DC 10/25/20 09:09 Divalproex Sodium (Depakote Sprinkles) 250 mg QID PO 10/25/20 17:15 11/17/20 20:18 Trazodone HCl (Desyrel) 50 mg HS PO 11/07/20 21:00 11/17/20 20:17 Furosemide (Lasix) 40 mg DAILY PO 11/09/20 09:00 11/17/20 08:34 I have reviewed the current psychotropics carefully including drug interactions. Risk benefit ratio favors no change other than as noted in my dictated progress note. Diagnosis: Problems: (1) Impulse control disorder, unspecified (2) Anxiety disorder, unspecified (3) Dementia, vascular, with depression (4) Dementia, vascular, with delusions (5) Dementia in Alzheimer's disease with depression (6) Dementia in Alzheimer's disease with delusions (7) Dementia of the Alzheimer's type with early onset with behavioral disturbance (8) Major neurocognitive disorder VERENA AGUSTIN MD Nov 18, 2020 06:14
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
[2020-11-18] MEDS: FUROSEMIDE 40 MG TABLET PO SCH (08:54)
[2020-11-18] MEDS: ASPIRIN CHEWABLE 81 MG TABLET. PO SCH (08:54)
[2020-11-18] MEDS: POTASSIUM CHLORIDE 20 MEQ TABLET.ER. PO SCH (08:54)
[2020-11-18] MEDS: CETIRIZINE HCL 10 MG TABLET PO SCH (08:54)
[2020-11-18] MEDS: DIVALPROEX 125 MG CAP.SPRINK PO SCH ×4 (08:54→20:09)
[2020-11-18] MEDS: PANTOPRAZOLE 40 MG TABLET. PO SCH (08:54)
[2020-11-18] MEDS: MULTIVITAMIN with MINERAL TABLET. PO SCH (08:54)
[2020-11-18 15:41] VITALS: BP 110/60
[2020-11-18] MEDS: ATORVASTATIN CALCIUM 20 MG TABLET PO SCH (20:09)
[2020-11-18] MEDS: TAMSULOSIN 0.4 MG CAP.ER.24H. PO SCH (20:09)
[2020-11-18] MEDS: traZODone 50 MG TABLET. PO SCH (20:09)
--- NOTE | 2020-11-18 22:04 | PDOC ---
Exam Note: Fercho Note: Please also refer to the separate dictated note~for this date of service dictated separately.~Patient seen individually. Discussed the patient with Nursing staff reviewed the chart.~Reviewed interim history and current functioning. Reviewed vital signs,~Labs/ Radiology~and current medications noted below. Continue current treatment with the changes noted in the dictated addendum note Assessment: Vital Signs/I&O: Vital Signs Date Time Temp Pulse Resp B/P (MAP) Pulse Ox O2 Delivery O2 Flow Rate FiO2 11/18/20 15:41 97.8 74 17 110/60 (77) 97 11/18/20 06:08 Room Air I & O 11/17/20 11/17/20 11/18/20 15:00 23:00 07:00 Intake Total 720 ml 740 ml Balance 720 ml 740 ml Current Medications: Meds: Current Medications Medications (Trade) Dose Ordered Sig/Ashvin Route PRN Reason Start Time Stop Time Status Last Admin Dose Admin Acetaminophen (Tylenol) 650 mg PRN Q6HRS PRN PO MILD PAIN / TEMP > 100.3'F 08/24/20 18:15 11/14/20 05:44 Multi-Ingredient Ointment (Analgesic [place]) 1 césar PRN QID PRN TP MUSCLE PAIN 08/24/20 18:15 Al Hydroxide/Mg Hydroxide (Mylanta Plus Xs) 15 ml PRN AFTMEALHC PRN PO DYSPEPSIA 08/24/20 18:15 Magnesium Hydroxide (Milk Of Magnesia) 2,400 mg PRN QHS PRN PO CONSTIPATION 08/24/20 18:15 11/10/20 16:58 Aspirin (Aspirin Chewable) 81 mg DAILY PO 08/25/20 09:00 11/18/20 08:54 Cetirizine HCl (ZyrTEC) 10 mg DAILY08 PO 08/25/20 08:00 11/18/20 08:54 Donepezil HCl (Aricept) 23 mg QHS PO 08/24/20 21:00 08/28/20 15:38 DC 08/27/20 20:34 Fluoxetine HCl (PROzac) 20 mg DAILY PO 08/25/20 09:00 11/18/20 08:54 Lorazepam (Ativan) 1 mg PRN Q4HRS PRN PO ANXIETY / AGITATION 08/24/20 18:45 09/04/20 16:12 DC 09/04/20 01:29 Atorvastatin Calcium (Lipitor) 40 mg QHS PO 08/24/20 21:00 11/18/20 20:09 Pantoprazole Sodium (Protonix) 40 mg DAILY08 PO 08/25/20 08:00 11/18/20 08:54 Multivitamins/ Calcium (Thera-M Plus) 1 tab DAILY PO 08/25/20 09:00 11/18/20 08:54 Mupirocin (Bactroban) 1 césar BID92 TP 08/25/20 09:00 09/03/20 12:35 DC 09/01/20 14:00 Fish Oil (Fish Oil) 1,000 mg DAILY PO 08/25/20 09:00 11/08/20 18:17 DC 11/07/20 08:19 Olanzapine (ZyPREXA ZYDIS) 2.5 mg PRN Q2HR PRN PO PSYCHOSIS 08/24/20 19:45 11/16/20 12:58 Sertraline HCl (Zoloft) 25 mg DAILY PO 08/26/20 09:00 08/28/20 21:00 DC 08/28/20 08:37 Sertraline HCl (Zoloft) 50 mg DAILY PO 08/29/20 09:00 09/06/20 18:40 DC 09/04/20 08:58 Tamsulosin HCl (Flomax) 0.4 mg QHS PO 08/28/20 21:00 11/18/20 20:09 Mupirocin (Bactroban) 1 césar PRN BID PRN TP RASH 09/03/20 12:45 Diphenhydramine HCl (Benadryl) 50 mg 1X ONCE PO 09/04/20 21:00 09/04/20 21:01 DC 09/04/20 21:21 Olanzapine (ZyPREXA ZYDIS) 5 mg 1X ONCE PO 09/27/20 18:30 09/27/20 18:31 DC 09/27/20 18:30 Divalproex Sodium (Depakote Sprinkles) 125 mg 0900,1700 PO 09/28/20 17:00 10/12/20 17:08 DC 10/12/20 08:18 Furosemide (Lasix) 80 mg 1X ONCE PO 09/30/20 15:30 09/30/20 15:31 DC 09/30/20 16:00 Furosemide (Lasix) 80 mg DAILY PO 10/01/20 09:00 11/08/20 18:17 DC 11/08/20 08:39 Potassium Chloride (Klor-Con) 20 meq DAILYWBKFT PO 10/01/20 08:00 11/18/20 08:54 Trazodone HCl (Desyrel) 50 mg PRN QHS PRN PO INSOMNIA 10/08/20 16:15 11/07/20 18:18 DC 10/09/20 20:15 Divalproex Sodium (Depakote Sprinkles) 125 mg 0900,1300,1700,2100 PO 10/12/20 17:50 10/21/20 17:01 DC 10/21/20 12:26 Divalproex Sodium (Depakote Sprinkles) 125 mg 1300,1700 PO 10/21/20 17:00 10/25/20 17:17 DC 10/25/20 15:29 Divalproex Sodium (Depakote Sprinkles) 250 mg 0900,2100 PO 10/21/20 21:00 10/25/20 17:17 DC 10/25/20 09:09 Divalproex Sodium (Depakote Sprinkles) 250 mg QID PO 10/25/20 17:15 11/18/20 20:09 Trazodone HCl (Desyrel) 50 mg HS PO 11/07/20 21:00 11/18/20 20:09 Furosemide (Lasix) 40 mg DAILY PO 11/09/20 09:00 11/18/20 08:54 I have reviewed the current psychotropics carefully including drug interactions. Risk benefit ratio favors no change other than as noted in my dictated progress note. Diagnosis: Problems: (1) Anxiety disorder, unspecified (2) Impulse control disorder, unspecified (3) Dementia, vascular, with depression (4) Dementia, vascular, with delusions (5) Dementia in Alzheimer's disease with depression (6) Dementia in Alzheimer's disease with delusions (7) Dementia of the Alzheimer's type with early onset with behavioral disturbance (8) Major neurocognitive disorder VERENA AGUSTIN MD Nov 18, 2020 22:04
[2020-11-19 04:57] VITALS: BP 96/60
--- NOTE | 2020-11-19 06:57 | PDOC ---
Exam Note: Fercho Note: This note is a late entry for 11/18/2020 covers elements not covered in my initial note. Subjective: The patient was seen on telehealth rounds in the evening of 11/18/2020 due to COVID-19 exposure on the unit with Olivia ABREU, discussed and reviewed the chart. He slept 8-1/2 hours previous night. Overall the patient remains confused, wanders the hallways, otherwise, pleasant, smiling, oblivious of his surroundings. There was a question whether he had some pedal edema but this was not corroborated per nursing evaluation. Review of Systems: No CV, , pulmonary, eye, ENT system symptoms on review. Mental Status Exam: The patient is oriented to himself. Insight and judgment, recent and remote memory, attention and concentration, fund of knowledge is poor consistent with his diagnoses. Laboratory Data: Reviewed. Impression: Major neurocognitive disorder Alzheimer vascular with delusion, depression, behavioral disturbance. Anxiety disorder unspecified. Impulse control disorder unspecified. Plan: No change from initial note. Assessment: Vital Signs/I&O: Vital Signs Date Time Temp Pulse Resp B/P (MAP) Pulse Ox O2 Delivery O2 Flow Rate FiO2 11/19/20 04:57 96.9 57 14 96/60 (72) 97 11/18/20 06:08 Room Air I & O 11/18/20 11/18/20 11/19/20 15:00 23:00 07:00 Intake Total 740 ml 580 ml Balance 740 ml 580 ml Current Medications: Meds: Current Medications Medications (Trade) Dose Ordered Sig/Ashvin Route PRN Reason Start Time Stop Time Status Last Admin Dose Admin Acetaminophen (Tylenol) 650 mg PRN Q6HRS PRN PO MILD PAIN / TEMP > 100.3'F 08/24/20 18:15 11/14/20 05:44 Multi-Ingredient Ointment (Analgesic [place]) 1 césar PRN QID PRN TP MUSCLE PAIN 08/24/20 18:15 Al Hydroxide/Mg Hydroxide (Mylanta Plus Xs) 15 ml PRN AFTMEALHC PRN PO DYSPEPSIA 08/24/20 18:15 Magnesium Hydroxide (Milk Of Magnesia) 2,400 mg PRN QHS PRN PO CONSTIPATION 08/24/20 18:15 11/10/20 16:58 Aspirin (Aspirin Chewable) 81 mg DAILY PO 08/25/20 09:00 11/18/20 08:54 Cetirizine HCl (ZyrTEC) 10 mg DAILY08 PO 08/25/20 08:00 11/18/20 08:54 Donepezil HCl (Aricept) 23 mg QHS PO 08/24/20 21:00 08/28/20 15:38 DC 08/27/20 20:34 Fluoxetine HCl (PROzac) 20 mg DAILY PO 08/25/20 09:00 11/18/20 08:54 Lorazepam (Ativan) 1 mg PRN Q4HRS PRN PO ANXIETY / AGITATION 08/24/20 18:45 09/04/20 16:12 DC 09/04/20 01:29 Atorvastatin Calcium (Lipitor) 40 mg QHS PO 08/24/20 21:00 11/18/20 20:09 Pantoprazole Sodium (Protonix) 40 mg DAILY08 PO 08/25/20 08:00 11/18/20 08:54 Multivitamins/ Calcium (Thera-M Plus) 1 tab DAILY PO 08/25/20 09:00 11/18/20 08:54 Mupirocin (Bactroban) 1 césar BID92 TP 08/25/20 09:00 09/03/20 12:35 DC 09/01/20 14:00 Fish Oil (Fish Oil) 1,000 mg DAILY PO 08/25/20 09:00 11/08/20 18:17 DC 11/07/20 08:19 Olanzapine (ZyPREXA ZYDIS) 2.5 mg PRN Q2HR PRN PO PSYCHOSIS 08/24/20 19:45 11/16/20 12:58 Sertraline HCl (Zoloft) 25 mg DAILY PO 08/26/20 09:00 08/28/20 21:00 DC 08/28/20 08:37 Sertraline HCl (Zoloft) 50 mg DAILY PO 08/29/20 09:00 09/06/20 18:40 DC 09/04/20 08:58 Tamsulosin HCl (Flomax) 0.4 mg QHS PO 08/28/20 21:00 11/18/20 20:09 Mupirocin (Bactroban) 1 césar PRN BID PRN TP RASH 09/03/20 12:45 Diphenhydramine HCl (Benadryl) 50 mg 1X ONCE PO 09/04/20 21:00 09/04/20 21:01 DC 09/04/20 21:21 Olanzapine (ZyPREXA ZYDIS) 5 mg 1X ONCE PO 09/27/20 18:30 09/27/20 18:31 DC 09/27/20 18:30 Divalproex Sodium (Depakote Sprinkles) 125 mg 0900,1700 PO 09/28/20 17:00 10/12/20 17:08 DC 10/12/20 08:18 Furosemide (Lasix) 80 mg 1X ONCE PO 09/30/20 15:30 09/30/20 15:31 DC 09/30/20 16:00 Furosemide (Lasix) 80 mg DAILY PO 10/01/20 09:00 11/08/20 18:17 DC 11/08/20 08:39 Potassium Chloride (Klor-Con) 20 meq DAILYWBKFT PO 10/01/20 08:00 11/18/20 08:54 Trazodone HCl (Desyrel) 50 mg PRN QHS PRN PO INSOMNIA 10/08/20 16:15 11/07/20 18:18 DC 10/09/20 20:15 Divalproex Sodium (Depakote Sprinkles) 125 mg 0900,1300,1700,2100 PO 10/12/20 17:50 10/21/20 17:01 DC 10/21/20 12:26 Divalproex Sodium (Depakote Sprinkles) 125 mg 1300,1700 PO 10/21/20 17:00 10/25/20 17:17 DC 10/25/20 15:29 Divalproex Sodium (Depakote Sprinkles) 250 mg 0900,2100 PO 10/21/20 21:00 10/25/20 17:17 DC 10/25/20 09:09 Divalproex Sodium (Depakote Sprinkles) 250 mg QID PO 10/25/20 17:15 11/18/20 20:09 Trazodone HCl (Desyrel) 50 mg HS PO 11/07/20 21:00 11/18/20 20:09 Furosemide (Lasix) 40 mg DAILY PO 11/09/20 09:00 11/18/20 08:54 I have reviewed the current psychotropics carefully including drug interactions. Risk benefit ratio favors no change other than as noted in my dictated progress note. Diagnosis: Problems: (1) Impulse control disorder, unspecified (2) Anxiety disorder, unspecified (3) Dementia, vascular, with depression (4) Dementia, vascular, with delusions (5) Dementia in Alzheimer's disease with depression (6) Dementia in Alzheimer's disease with delusions (7) Dementia of the Alzheimer's type with early onset with behavioral disturbance (8) Major neurocognitive disorder VERENA AGUSTIN MD Nov 19, 2020 06:57
[2020-11-19] MEDS: FUROSEMIDE 40 MG TABLET PO SCH (08:07)
[2020-11-19] MEDS: MULTIVITAMIN with MINERAL TABLET. PO SCH (08:07)
[2020-11-19] MEDS: CETIRIZINE HCL 10 MG TABLET PO SCH (08:07)
[2020-11-19] MEDS: DIVALPROEX 125 MG CAP.SPRINK PO SCH ×4 (08:07→19:43)
[2020-11-19] MEDS: ASPIRIN CHEWABLE 81 MG TABLET. PO SCH (08:07)
[2020-11-19] MEDS: PANTOPRAZOLE 40 MG TABLET. PO SCH (08:07)
[2020-11-19] MEDS: POTASSIUM CHLORIDE 20 MEQ TABLET.ER. PO SCH (08:08)
[2020-11-19 15:58] VITALS: BP 110/67
[2020-11-19] MEDS: TAMSULOSIN 0.4 MG CAP.ER.24H. PO SCH (19:43)
[2020-11-19] MEDS: traZODone 50 MG TABLET. PO SCH (19:43)
[2020-11-19] MEDS: ATORVASTATIN CALCIUM 20 MG TABLET PO SCH (19:43)
[2020-11-20 05:42] VITALS: BP 111/63
[2020-11-20] MEDS: POTASSIUM CHLORIDE 20 MEQ TABLET.ER. PO SCH (08:34)
[2020-11-20] MEDS: DIVALPROEX 125 MG CAP.SPRINK PO SCH ×4 (08:34→19:47)
[2020-11-20] MEDS: ASPIRIN CHEWABLE 81 MG TABLET. PO SCH (08:34)
[2020-11-20] MEDS: PANTOPRAZOLE 40 MG TABLET. PO SCH (08:35)
[2020-11-20] MEDS: CETIRIZINE HCL 10 MG TABLET PO SCH (08:35)
[2020-11-20] MEDS: FUROSEMIDE 40 MG TABLET PO SCH (08:35)
[2020-11-20] MEDS: MULTIVITAMIN with MINERAL TABLET. PO SCH (08:35)
[2020-11-20 15:42] VITALS: BP 102/60
[2020-11-20] MEDS: TAMSULOSIN 0.4 MG CAP.ER.24H. PO SCH (19:46)
[2020-11-20] MEDS: traZODone 50 MG TABLET. PO SCH (19:46)
[2020-11-20] MEDS: ATORVASTATIN CALCIUM 20 MG TABLET PO SCH (19:46)
--- NOTE | 2020-11-20 21:58 | PDOC ---
Exam Note: Fercho Note: Please also refer to the separate dictated note~for this date of service dictated separately.~Patient seen individually. Discussed the patient with Nursing staff reviewed the chart.~Reviewed interim history and current functioning. Reviewed vital signs,~Labs/ Radiology~and current medications noted below. Continue current treatment with the changes noted in the dictated addendum note Assessment: Vital Signs/I&O: Vital Signs Date Time Temp Pulse Resp B/P (MAP) Pulse Ox O2 Delivery O2 Flow Rate FiO2 11/20/20 15:42 98.1 62 18 102/60 (74) 99 11/18/20 06:08 Room Air I & O 11/19/20 11/19/20 11/20/20 15:00 23:00 07:00 Intake Total 840 ml 480 ml Balance 840 ml 480 ml Current Medications: Meds: Current Medications Medications (Trade) Dose Ordered Sig/Ashvin Route PRN Reason Start Time Stop Time Status Last Admin Dose Admin Acetaminophen (Tylenol) 650 mg PRN Q6HRS PRN PO MILD PAIN / TEMP > 100.3'F 08/24/20 18:15 11/14/20 05:44 Multi-Ingredient Ointment (Analgesic [place]) 1 césar PRN QID PRN TP MUSCLE PAIN 08/24/20 18:15 Al Hydroxide/Mg Hydroxide (Mylanta Plus Xs) 15 ml PRN AFTMEALHC PRN PO DYSPEPSIA 08/24/20 18:15 Magnesium Hydroxide (Milk Of Magnesia) 2,400 mg PRN QHS PRN PO CONSTIPATION 08/24/20 18:15 11/10/20 16:58 Aspirin (Aspirin Chewable) 81 mg DAILY PO 08/25/20 09:00 11/20/20 08:34 Cetirizine HCl (ZyrTEC) 10 mg DAILY08 PO 08/25/20 08:00 11/20/20 08:35 Donepezil HCl (Aricept) 23 mg QHS PO 08/24/20 21:00 08/28/20 15:38 DC 08/27/20 20:34 Fluoxetine HCl (PROzac) 20 mg DAILY PO 08/25/20 09:00 11/20/20 08:35 Lorazepam (Ativan) 1 mg PRN Q4HRS PRN PO ANXIETY / AGITATION 08/24/20 18:45 09/04/20 16:12 DC 09/04/20 01:29 Atorvastatin Calcium (Lipitor) 40 mg QHS PO 08/24/20 21:00 11/20/20 19:46 Pantoprazole Sodium (Protonix) 40 mg DAILY08 PO 08/25/20 08:00 11/20/20 08:35 Multivitamins/ Calcium (Thera-M Plus) 1 tab DAILY PO 08/25/20 09:00 11/20/20 08:35 Mupirocin (Bactroban) 1 césar BID92 TP 08/25/20 09:00 09/03/20 12:35 DC 09/01/20 14:00 Fish Oil (Fish Oil) 1,000 mg DAILY PO 08/25/20 09:00 11/08/20 18:17 DC 11/07/20 08:19 Olanzapine (ZyPREXA ZYDIS) 2.5 mg PRN Q2HR PRN PO PSYCHOSIS 08/24/20 19:45 11/16/20 12:58 Sertraline HCl (Zoloft) 25 mg DAILY PO 08/26/20 09:00 08/28/20 21:00 DC 08/28/20 08:37 Sertraline HCl (Zoloft) 50 mg DAILY PO 08/29/20 09:00 09/06/20 18:40 DC 09/04/20 08:58 Tamsulosin HCl (Flomax) 0.4 mg QHS PO 08/28/20 21:00 11/20/20 19:46 Mupirocin (Bactroban) 1 césar PRN BID PRN TP RASH 09/03/20 12:45 Diphenhydramine HCl (Benadryl) 50 mg 1X ONCE PO 09/04/20 21:00 09/04/20 21:01 DC 09/04/20 21:21 Olanzapine (ZyPREXA ZYDIS) 5 mg 1X ONCE PO 09/27/20 18:30 09/27/20 18:31 DC 09/27/20 18:30 Divalproex Sodium (Depakote Sprinkles) 125 mg 0900,1700 PO 09/28/20 17:00 10/12/20 17:08 DC 10/12/20 08:18 Furosemide (Lasix) 80 mg 1X ONCE PO 09/30/20 15:30 09/30/20 15:31 DC 09/30/20 16:00 Furosemide (Lasix) 80 mg DAILY PO 10/01/20 09:00 11/08/20 18:17 DC 11/08/20 08:39 Potassium Chloride (Klor-Con) 20 meq DAILYWBKFT PO 10/01/20 08:00 11/20/20 08:34 Trazodone HCl (Desyrel) 50 mg PRN QHS PRN PO INSOMNIA 10/08/20 16:15 11/07/20 18:18 DC 10/09/20 20:15 Divalproex Sodium (Depakote Sprinkles) 125 mg 0900,1300,1700,2100 PO 10/12/20 17:50 10/21/20 17:01 DC 10/21/20 12:26 Divalproex Sodium (Depakote Sprinkles) 125 mg 1300,1700 PO 10/21/20 17:00 10/25/20 17:17 DC 10/25/20 15:29 Divalproex Sodium (Depakote Sprinkles) 250 mg 0900,2100 PO 10/21/20 21:00 10/25/20 17:17 DC 10/25/20 09:09 Divalproex Sodium (Depakote Sprinkles) 250 mg QID PO 10/25/20 17:15 11/20/20 19:47 Trazodone HCl (Desyrel) 50 mg HS PO 11/07/20 21:00 11/20/20 19:46 Furosemide (Lasix) 40 mg DAILY PO 11/09/20 09:00 11/20/20 08:35 I have reviewed the current psychotropics carefully including drug interactions. Risk benefit ratio favors no change other than as noted in my dictated progress note. Diagnosis: Problems: (1) Impulse control disorder, unspecified (2) Anxiety disorder, unspecified (3) Dementia, vascular, with depression (4) Dementia, vascular, with delusions (5) Dementia in Alzheimer's disease with depression (6) Dementia in Alzheimer's disease with delusions (7) Dementia of the Alzheimer's type with early onset with behavioral disturbance (8) Major neurocognitive disorder VERENA AGUSTIN MD Nov 20, 2020 21:58
[2020-11-21 06:05] VITALS: BP 124/69
[2020-11-21] MEDS: PANTOPRAZOLE 40 MG TABLET. PO SCH (09:42)
[2020-11-21] MEDS: DIVALPROEX 125 MG CAP.SPRINK PO SCH ×4 (09:43→19:47)
[2020-11-21] MEDS: POTASSIUM CHLORIDE 20 MEQ TABLET.ER. PO SCH (09:43)
[2020-11-21] MEDS: CETIRIZINE HCL 10 MG TABLET PO SCH (09:43)
[2020-11-21] MEDS: FUROSEMIDE 40 MG TABLET PO SCH (09:43)
[2020-11-21] MEDS: MULTIVITAMIN with MINERAL TABLET. PO SCH (09:43)
[2020-11-21] MEDS: ASPIRIN CHEWABLE 81 MG TABLET. PO SCH (09:43)
[2020-11-21 15:51] VITALS: BP 95/61
[2020-11-21] MEDS: traZODone 50 MG TABLET. PO SCH (19:47)
[2020-11-21] MEDS: ATORVASTATIN CALCIUM 20 MG TABLET PO SCH (19:47)
[2020-11-21] MEDS: TAMSULOSIN 0.4 MG CAP.ER.24H. PO SCH (19:47)
--- NOTE | 2020-11-21 21:46 | PDOC ---
Exam Note: Fercho Note: Please also refer to the separate dictated note~for this date of service dictated separately.~Patient seen individually. Discussed the patient with Nursing staff reviewed the chart.~Reviewed interim history and current functioning. Reviewed vital signs,~Labs/ Radiology~and current medications noted below. Continue current treatment with the changes noted in the dictated addendum note Assessment: Vital Signs/I&O: Vital Signs Date Time Temp Pulse Resp B/P (MAP) Pulse Ox O2 Delivery O2 Flow Rate FiO2 11/21/20 15:51 97.2 54 16 95/61 (72) 92 11/18/20 06:08 Room Air I & O 11/20/20 11/20/20 11/21/20 15:00 23:00 07:00 Intake Total 840 ml 720 ml Balance 840 ml 720 ml Current Medications: Meds: Current Medications Medications (Trade) Dose Ordered Sig/Ashvin Route PRN Reason Start Time Stop Time Status Last Admin Dose Admin Acetaminophen (Tylenol) 650 mg PRN Q6HRS PRN PO MILD PAIN / TEMP > 100.3'F 08/24/20 18:15 11/14/20 05:44 Multi-Ingredient Ointment (Analgesic [place]) 1 césar PRN QID PRN TP MUSCLE PAIN 08/24/20 18:15 Al Hydroxide/Mg Hydroxide (Mylanta Plus Xs) 15 ml PRN AFTMEALHC PRN PO DYSPEPSIA 08/24/20 18:15 Magnesium Hydroxide (Milk Of Magnesia) 2,400 mg PRN QHS PRN PO CONSTIPATION 08/24/20 18:15 11/10/20 16:58 Aspirin (Aspirin Chewable) 81 mg DAILY PO 08/25/20 09:00 11/21/20 09:43 Cetirizine HCl (ZyrTEC) 10 mg DAILY08 PO 08/25/20 08:00 11/21/20 09:43 Donepezil HCl (Aricept) 23 mg QHS PO 08/24/20 21:00 08/28/20 15:38 DC 08/27/20 20:34 Fluoxetine HCl (PROzac) 20 mg DAILY PO 08/25/20 09:00 11/21/20 09:42 Lorazepam (Ativan) 1 mg PRN Q4HRS PRN PO ANXIETY / AGITATION 08/24/20 18:45 09/04/20 16:12 DC 09/04/20 01:29 Atorvastatin Calcium (Lipitor) 40 mg QHS PO 08/24/20 21:00 11/21/20 19:47 Pantoprazole Sodium (Protonix) 40 mg DAILY08 PO 08/25/20 08:00 11/21/20 09:42 Multivitamins/ Calcium (Thera-M Plus) 1 tab DAILY PO 08/25/20 09:00 11/21/20 09:43 Mupirocin (Bactroban) 1 césar BID92 TP 08/25/20 09:00 09/03/20 12:35 DC 09/01/20 14:00 Fish Oil (Fish Oil) 1,000 mg DAILY PO 08/25/20 09:00 11/08/20 18:17 DC 11/07/20 08:19 Olanzapine (ZyPREXA ZYDIS) 2.5 mg PRN Q2HR PRN PO PSYCHOSIS 08/24/20 19:45 11/16/20 12:58 Sertraline HCl (Zoloft) 25 mg DAILY PO 08/26/20 09:00 08/28/20 21:00 DC 08/28/20 08:37 Sertraline HCl (Zoloft) 50 mg DAILY PO 08/29/20 09:00 09/06/20 18:40 DC 09/04/20 08:58 Tamsulosin HCl (Flomax) 0.4 mg QHS PO 08/28/20 21:00 11/21/20 19:47 Mupirocin (Bactroban) 1 césar PRN BID PRN TP RASH 09/03/20 12:45 Diphenhydramine HCl (Benadryl) 50 mg 1X ONCE PO 09/04/20 21:00 09/04/20 21:01 DC 09/04/20 21:21 Olanzapine (ZyPREXA ZYDIS) 5 mg 1X ONCE PO 09/27/20 18:30 09/27/20 18:31 DC 09/27/20 18:30 Divalproex Sodium (Depakote Sprinkles) 125 mg 0900,1700 PO 09/28/20 17:00 10/12/20 17:08 DC 10/12/20 08:18 Furosemide (Lasix) 80 mg 1X ONCE PO 09/30/20 15:30 09/30/20 15:31 DC 09/30/20 16:00 Furosemide (Lasix) 80 mg DAILY PO 10/01/20 09:00 11/08/20 18:17 DC 11/08/20 08:39 Potassium Chloride (Klor-Con) 20 meq DAILYWBKFT PO 10/01/20 08:00 11/21/20 09:43 Trazodone HCl (Desyrel) 50 mg PRN QHS PRN PO INSOMNIA 10/08/20 16:15 11/07/20 18:18 DC 10/09/20 20:15 Divalproex Sodium (Depakote Sprinkles) 125 mg 0900,1300,1700,2100 PO 10/12/20 17:50 10/21/20 17:01 DC 10/21/20 12:26 Divalproex Sodium (Depakote Sprinkles) 125 mg 1300,1700 PO 10/21/20 17:00 10/25/20 17:17 DC 10/25/20 15:29 Divalproex Sodium (Depakote Sprinkles) 250 mg 0900,2100 PO 10/21/20 21:00 10/25/20 17:17 DC 10/25/20 09:09 Divalproex Sodium (Depakote Sprinkles) 250 mg QID PO 10/25/20 17:15 11/21/20 19:47 Trazodone HCl (Desyrel) 50 mg HS PO 11/07/20 21:00 11/21/20 19:47 Furosemide (Lasix) 40 mg DAILY PO 11/09/20 09:00 11/21/20 09:43 I have reviewed the current psychotropics carefully including drug interactions. Risk benefit ratio favors no change other than as noted in my dictated progress note. Diagnosis: Problems: (1) Impulse control disorder, unspecified (2) Anxiety disorder, unspecified (3) Dementia, vascular, with depression (4) Dementia, vascular, with delusions (5) Dementia in Alzheimer's disease with depression (6) Dementia in Alzheimer's disease with delusions (7) Dementia of the Alzheimer's type with early onset with behavioral disturbance (8) Major neurocognitive disorder VERENA AGUSTIN MD Nov 21, 2020 21:46
[2020-11-22 05:42] VITALS: BP 104/64
[2020-11-22 06:22] LABS: BASO % 1 % (0-3); EOS # 0.3 x10^3/uL (0.0-0.7); EOS % 6 % (0-3); HEMATOCRIT 38.8 % (39.0-53.0); HEMOGLOBIN 12.8 g/dL (13.0-17.5); LYMPH # 1.3 x10^3/uL (1.0-4.8); LYMPH % 24 % (24-48); MEAN CORPUSCULAR HEMOGLOBIN 29 pg (25-35); MEAN CORPUSCULAR HGB CONC 33 g/dL (31-37); MEAN CORPUSCULAR VOLUME 89 fL (79-100); MONO # 0.4 x10^3/uL (0.0-1.1); MONO % 8 % (0-9); NEUT # 3.3 x10^3uL (1.8-7.7); NEUT % 61 % (31-73); PLATELET COUNT 179 x10^3/uL (140-400); RED BLOOD COUNT 4.35 x10^6/uL (4.30-5.70); RED CELL DISTRIBUTION WIDTH 15.8 % (11.5-14.5); WHITE BLOOD COUNT 5.4 x10^3/uL (4.0-11.0)
[2020-11-22 06:34] LABS: ALBUMIN 3.3 g/dL (3.4-5.0); CALCIUM 8.4 mg/dL (8.5-10.1); CREATININE 1.6 mg/dL (0.7-1.3); GFR 42.6; POTASSIUM 4.5 mmol/L (3.5-5.1); TOTAL BILIRUBIN 0.5 mg/dL (0.2-1.0); TOTAL PROTEIN 6.5 g/dL (6.4-8.2)
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
--- NOTE | 2020-11-22 07:37 | PDOC ---
Exam Note: Fercho Note: This note is a late entry for 11/21/2020 covers elements not covered in my initial note. Subjective: The patient was seen on telehealth rounds in the evening of 11/21/2020 due to COVID-19 exposure on the unit with Olivia ABREU, discussed and reviewed the chart. He slept 5-1/2 hours previous night. The patient remains confused, has not been aggressive again. He ambulates on his own, wanders up and down the hallways, redirects, walks into other patients rooms, oblivious of what he is doing. Review of Systems: No CV, , pulmonary, eye, ENT system symptoms on review. Mental Status Exam: The patient is oriented to himself. He is pleasant, smiling when I met with him on telehealth rounds after his supper. Insight and judgment, recent and remote memory, attention and concentration, fund of knowledge is poor consistent with his diagnoses. Laboratory Data: Reviewed. Impression: Major neurocognitive disorder Alzheimer vascular with delusion, depression, behavioral disturbance. Anxiety disorder unspecified. Impulse control disorder unspecified. Plan: No change from initial note. Assessment: Vital Signs/I&O: Vital Signs Date Time Temp Pulse Resp B/P (MAP) Pulse Ox O2 Delivery O2 Flow Rate FiO2 11/22/20 05:42 97.8 64 20 104/64 (77) 100 Room Air I & O 11/21/20 11/21/20 11/22/20 14:59 22:59 06:59 Intake Total 720 ml 720 ml Balance 720 ml 720 ml Labs: Laboratory Tests Test 11/22/20 05:57 White Blood Count 5.4 x10^3/uL (4.0-11.0) Red Blood Count 4.35 x10^6/uL (4.30-5.70) Hemoglobin 12.8 g/dL (13.0-17.5) L Hematocrit 38.8 % (39.0-53.0) L Mean Corpuscular Volume 89 fL (79-100) Mean Corpuscular Hemoglobin 29 pg (25-35) Mean Corpuscular Hemoglobin Concent 33 g/dL (31-37) Red Cell Distribution Width 15.8 % (11.5-14.5) H Platelet Count 179 x10^3/uL (140-400) Neutrophils (%) (Auto) 61 % (31-73) Lymphocytes (%) (Auto) 24 % (24-48) Monocytes (%) (Auto) 8 % (0-9) Eosinophils (%) (Auto) 6 % (0-3) H Basophils (%) (Auto) 1 % (0-3) Neutrophils # (Auto) 3.3 x10^3uL (1.8-7.7) Lymphocytes # (Auto) 1.3 x10^3/uL (1.0-4.8) Monocytes # (Auto) 0.4 x10^3/uL (0.0-1.1) Eosinophils # (Auto) 0.3 x10^3/uL (0.0-0.7) Basophils # (Auto) 0.0 x10^3/uL (0.0-0.2) Sodium Level 144 mmol/L (136-145) Potassium Level 4.5 mmol/L (3.5-5.1) Chloride Level 105 mmol/L (98-107) Carbon Dioxide Level 32 mmol/L (21-32) Anion Gap 7 (6-14) Blood Urea Nitrogen 32 mg/dL (8-26) H Creatinine 1.6 mg/dL (0.7-1.3) H Estimated GFR (Cockcroft-Gault) 42.6 BUN/Creatinine Ratio 20 (6-20) Glucose Level 86 mg/dL (70-99) Calcium Level 8.4 mg/dL (8.5-10.1) L Total Bilirubin 0.5 mg/dL (0.2-1.0) Aspartate Amino Transferase (AST) 23 U/L (15-37) Alanine Aminotransferase (ALT) 28 U/L (16-63) Alkaline Phosphatase 52 U/L (46-116) Total Protein 6.5 g/dL (6.4-8.2) Albumin 3.3 g/dL (3.4-5.0) L Albumin/Globulin Ratio 1.0 (1.0-1.7) Current Medications: Meds: Laboratory Tests Test 11/22/20 05:57 White Blood Count 5.4 x10^3/uL Red Blood Count 4.35 x10^6/uL Hemoglobin 12.8 g/dL Hematocrit 38.8 % Mean Corpuscular Volume 89 fL Mean Corpuscular Hemoglobin 29 pg Mean Corpuscular Hemoglobin Concent 33 g/dL Red Cell Distribution Width 15.8 % Platelet Count 179 x10^3/uL Neutrophils (%) (Auto) 61 % Lymphocytes (%) (Auto) 24 % Monocytes (%) (Auto) 8 % Eosinophils (%) (Auto) 6 % Basophils (%) (Auto) 1 % Neutrophils # (Auto) 3.3 x10^3uL Lymphocytes # (Auto) 1.3 x10^3/uL Monocytes # (Auto) 0.4 x10^3/uL Eosinophils # (Auto) 0.3 x10^3/uL Basophils # (Auto) 0.0 x10^3/uL Sodium Level 144 mmol/L Potassium Level 4.5 mmol/L Chloride Level 105 mmol/L Carbon Dioxide Level 32 mmol/L Anion Gap 7 Blood Urea Nitrogen 32 mg/dL Creatinine 1.6 mg/dL Estimated GFR (Cockcroft-Gault) 42.6 BUN/Creatinine Ratio 20 Glucose Level 86 mg/dL Calcium Level 8.4 mg/dL Total Bilirubin 0.5 mg/dL Aspartate Amino Transf (AST/SGOT) 23 U/L Alanine Aminotransferase (ALT/SGPT) 28 U/L Alkaline Phosphatase 52 U/L Total Protein 6.5 g/dL Albumin 3.3 g/dL Albumin/Globulin Ratio 1.0 Current Medications Medications (Trade) Dose Ordered Sig/Sahvin Route PRN Reason Start Time Stop Time Status Last Admin Dose Admin Acetaminophen (Tylenol) 650 mg PRN Q6HRS PRN PO MILD PAIN / TEMP > 100.3'F 08/24/20 18:15 11/14/20 05:44 Multi-Ingredient Ointment (Analgesic [place]) 1 césar PRN QID PRN TP MUSCLE PAIN 08/24/20 18:15 Al Hydroxide/Mg Hydroxide (Mylanta Plus Xs) 15 ml PRN AFTMEALHC PRN PO DYSPEPSIA 08/24/20 18:15 Magnesium Hydroxide (Milk Of Magnesia) 2,400 mg PRN QHS PRN PO CONSTIPATION 08/24/20 18:15 11/10/20 16:58 Aspirin (Aspirin Chewable) 81 mg DAILY PO 08/25/20 09:00 11/21/20 09:43 Cetirizine HCl (ZyrTEC) 10 mg DAILY08 PO 08/25/20 08:00 11/21/20 09:43 Donepezil HCl (Aricept) 23 mg QHS PO 08/24/20 21:00 08/28/20 15:38 DC 08/27/20 20:34 Fluoxetine HCl (PROzac) 20 mg DAILY PO 08/25/20 09:00 11/21/20 09:42 Lorazepam (Ativan) 1 mg PRN Q4HRS PRN PO ANXIETY / AGITATION 08/24/20 18:45 09/04/20 16:12 DC 09/04/20 01:29 Atorvastatin Calcium (Lipitor) 40 mg QHS PO 08/24/20 21:00 11/21/20 19:47 Pantoprazole Sodium (Protonix) 40 mg DAILY08 PO 08/25/20 08:00 11/21/20 09:42 Multivitamins/ Calcium (Thera-M Plus) 1 tab DAILY PO 08/25/20 09:00 11/21/20 09:43 Mupirocin (Bactroban) 1 césar BID92 TP 08/25/20 09:00 09/03/20 12:35 DC 09/01/20 14:00 Fish Oil (Fish Oil) 1,000 mg DAILY PO 08/25/20 09:00 11/08/20 18:17 DC 11/07/20 08:19 Olanzapine (ZyPREXA ZYDIS) 2.5 mg PRN Q2HR PRN PO PSYCHOSIS 08/24/20 19:45 11/16/20 12:58 Sertraline HCl (Zoloft) 25 mg DAILY PO 08/26/20 09:00 08/28/20 21:00 DC 08/28/20 08:37 Sertraline HCl (Zoloft) 50 mg DAILY PO 08/29/20 09:00 09/06/20 18:40 DC 09/04/20 08:58 Tamsulosin HCl (Flomax) 0.4 mg QHS PO 08/28/20 21:00 11/21/20 19:47 Mupirocin (Bactroban) 1 césar PRN BID PRN TP RASH 09/03/20 12:45 Diphenhydramine HCl (Benadryl) 50 mg 1X ONCE PO 09/04/20 21:00 09/04/20 21:01 DC 09/04/20 21:21 Olanzapine (ZyPREXA ZYDIS) 5 mg 1X ONCE PO 09/27/20 18:30 09/27/20 18:31 DC 09/27/20 18:30 Divalproex Sodium (Depakote Sprinkles) 125 mg 0900,1700 PO 09/28/20 17:00 10/12/20 17:08 DC 10/12/20 08:18 Furosemide (Lasix) 80 mg 1X ONCE PO 09/30/20 15:30 09/30/20 15:31 DC 09/30/20 16:00 Furosemide (Lasix) 80 mg DAILY PO 10/01/20 09:00 11/08/20 18:17 DC 11/08/20 08:39 Potassium Chloride (Klor-Con) 20 meq DAILYWBKFT PO 10/01/20 08:00 11/21/20 09:43 Trazodone HCl (Desyrel) 50 mg PRN QHS PRN PO INSOMNIA 10/08/20 16:15 11/07/20 18:18 DC 10/09/20 20:15 Divalproex Sodium (Depakote Sprinkles) 125 mg 0900,1300,1700,2100 PO 10/12/20 17:50 10/21/20 17:01 DC 10/21/20 12:26 Divalproex Sodium (Depakote Sprinkles) 125 mg 1300,1700 PO 10/21/20 17:00 10/25/20 17:17 DC 10/25/20 15:29 Divalproex Sodium (Depakote Sprinkles) 250 mg 0900,2100 PO 10/21/20 21:00 10/25/20 17:17 DC 10/25/20 09:09 Divalproex Sodium (Depakote Sprinkles) 250 mg QID PO 10/25/20 17:15 11/21/20 19:47 Trazodone HCl (Desyrel) 50 mg HS PO 11/07/20 21:00 11/21/20 19:47 Furosemide (Lasix) 40 mg DAILY PO 11/09/20 09:00 11/21/20 09:43 I have reviewed the current psychotropics carefully including drug interactions. Risk benefit ratio favors no change other than as noted in my dictated progress note. Diagnosis: Problems: (1) Impulse control disorder, unspecified (2) Anxiety disorder, unspecified (3) Dementia, vascular, with depression (4) Dementia, vascular, with delusions (5) Dementia in Alzheimer's disease with depression (6) Dementia in Alzheimer's disease with delusions (7) Dementia of the Alzheimer's type with early onset with behavioral distur bance (8) Major neurocognitive disorder VERENA AGUSTIN MD Nov 22, 2020 07:36
[2020-11-22] MEDS: ASPIRIN CHEWABLE 81 MG TABLET. PO SCH (08:18)
[2020-11-22] MEDS: DIVALPROEX 125 MG CAP.SPRINK PO SCH ×4 (08:18→20:04)
[2020-11-22] MEDS: FUROSEMIDE 40 MG TABLET PO SCH (08:18)
[2020-11-22] MEDS: CETIRIZINE HCL 10 MG TABLET PO SCH (08:18)
[2020-11-22] MEDS: MULTIVITAMIN with MINERAL TABLET. PO SCH (08:18)
[2020-11-22] MEDS: PANTOPRAZOLE 40 MG TABLET. PO SCH (08:19)
[2020-11-22] MEDS: POTASSIUM CHLORIDE 20 MEQ TABLET.ER. PO SCH (08:19)
[2020-11-22 15:53] VITALS: BP 118/80
[2020-11-22] MEDS: traZODone 50 MG TABLET. PO SCH (20:04)
[2020-11-22] MEDS: ATORVASTATIN CALCIUM 20 MG TABLET PO SCH (20:04)
[2020-11-22] MEDS: TAMSULOSIN 0.4 MG CAP.ER.24H. PO SCH (20:05)
--- NOTE | 2020-11-22 21:50 | PDOC ---
Exam Note: Fercho Note: Please also refer to the separate dictated note~for this date of service dictated separately.~Patient seen individually. Discussed the patient with Nursing staff reviewed the chart.~Reviewed interim history and current functioning. Reviewed vital signs,~Labs/ Radiology~and current medications noted below. Continue current treatment with the changes noted in the dictated addendum note Assessment: Vital Signs/I&O: Vital Signs Date Time Temp Pulse Resp B/P (MAP) Pulse Ox O2 Delivery O2 Flow Rate FiO2 11/22/20 15:53 96.9 71 17 118/80 (93) 99 11/22/20 05:42 Room Air I & O 11/21/20 11/21/20 11/22/20 15:00 23:00 07:00 Intake Total 720 ml 720 ml Balance 720 ml 720 ml Labs: Laboratory Tests Test 11/22/20 05:57 White Blood Count 5.4 x10^3/uL (4.0-11.0) Red Blood Count 4.35 x10^6/uL (4.30-5.70) Hemoglobin 12.8 g/dL (13.0-17.5) L Hematocrit 38.8 % (39.0-53.0) L Mean Corpuscular Volume 89 fL (79-100) Mean Corpuscular Hemoglobin 29 pg (25-35) Mean Corpuscular Hemoglobin Concent 33 g/dL (31-37) Red Cell Distribution Width 15.8 % (11.5-14.5) H Platelet Count 179 x10^3/uL (140-400) Neutrophils (%) (Auto) 61 % (31-73) Lymphocytes (%) (Auto) 24 % (24-48) Monocytes (%) (Auto) 8 % (0-9) Eosinophils (%) (Auto) 6 % (0-3) H Basophils (%) (Auto) 1 % (0-3) Neutrophils # (Auto) 3.3 x10^3uL (1.8-7.7) Lymphocytes # (Auto) 1.3 x10^3/uL (1.0-4.8) Monocytes # (Auto) 0.4 x10^3/uL (0.0-1.1) Eosinophils # (Auto) 0.3 x10^3/uL (0.0-0.7) Basophils # (Auto) 0.0 x10^3/uL (0.0-0.2) Sodium Level 144 mmol/L (136-145) Potassium Level 4.5 mmol/L (3.5-5.1) Chloride Level 105 mmol/L (98-107) Carbon Dioxide Level 32 mmol/L (21-32) Anion Gap 7 (6-14) Blood Urea Nitrogen 32 mg/dL (8-26) H Creatinine 1.6 mg/dL (0.7-1.3) H Estimated GFR (Cockcroft-Gault) 42.6 BUN/Creatinine Ratio 20 (6-20) Glucose Level 86 mg/dL (70-99) Calcium Level 8.4 mg/dL (8.5-10.1) L Total Bilirubin 0.5 mg/dL (0.2-1.0) Aspartate Amino Transferase (AST) 23 U/L (15-37) Alanine Aminotransferase (ALT) 28 U/L (16-63) Alkaline Phosphatase 52 U/L (46-116) Total Protein 6.5 g/dL (6.4-8.2) Albumin 3.3 g/dL (3.4-5.0) L Albumin/Globulin Ratio 1.0 (1.0-1.7) Current Medications: Meds: Laboratory Tests Test 11/22/20 05:57 White Blood Count 5.4 x10^3/uL Red Blood Count 4.35 x10^6/uL Hemoglobin 12.8 g/dL Hematocrit 38.8 % Mean Corpuscular Volume 89 fL Mean Corpuscular Hemoglobin 29 pg Mean Corpuscular Hemoglobin Concent 33 g/dL Red Cell Distribution Width 15.8 % Platelet Count 179 x10^3/uL Neutrophils (%) (Auto) 61 % Lymphocytes (%) (Auto) 24 % Monocytes (%) (Auto) 8 % Eosinophils (%) (Auto) 6 % Basophils (%) (Auto) 1 % Neutrophils # (Auto) 3.3 x10^3uL Lymphocytes # (Auto) 1.3 x10^3/uL Monocytes # (Auto) 0.4 x10^3/uL Eosinophils # (Auto) 0.3 x10^3/uL Basophils # (Auto) 0.0 x10^3/uL Sodium Level 144 mmol/L Potassium Level 4.5 mmol/L Chloride Level 105 mmol/L Carbon Dioxide Level 32 mmol/L Anion Gap 7 Blood Urea Nitrogen 32 mg/dL Creatinine 1.6 mg/dL Estimated GFR (Cockcroft-Gault) 42.6 BUN/Creatinine Ratio 20 Glucose Level 86 mg/dL Calcium Level 8.4 mg/dL Total Bilirubin 0.5 mg/dL Aspartate Amino Transf (AST/SGOT) 23 U/L Alanine Aminotransferase (ALT/SGPT) 28 U/L Alkaline Phosphatase 52 U/L Total Protein 6.5 g/dL Albumin 3.3 g/dL Albumin/Globulin Ratio 1.0 Current Medications Medications (Trade) Dose Ordered Sig/Ashvin Route PRN Reason Start Time Stop Time Status Last Admin Dose Admin Acetaminophen (Tylenol) 650 mg PRN Q6HRS PRN PO MILD PAIN / TEMP > 100.3'F 08/24/20 18:15 11/14/20 05:44 Multi-Ingredient Ointment (Analgesic [place]) 1 césar PRN QID PRN TP MUSCLE PAIN 08/24/20 18:15 Al Hydroxide/Mg Hydroxide (Mylanta Plus Xs) 15 ml PRN AFTMEALHC PRN PO DYSPEPSIA 08/24/20 18:15 Magnesium Hydroxide (Milk Of Magnesia) 2,400 mg PRN QHS PRN PO CONSTIPATION 08/24/20 18:15 11/10/20 16:58 Aspirin (Aspirin Chewable) 81 mg DAILY PO 08/25/20 09:00 11/22/20 08:18 Cetirizine HCl (ZyrTEC) 10 mg DAILY08 PO 08/25/20 08:00 11/22/20 08:18 Donepezil HCl (Aricept) 23 mg QHS PO 08/24/20 21:00 08/28/20 15:38 DC 08/27/20 20:34 Fluoxetine HCl (PROzac) 20 mg DAILY PO 08/25/20 09:00 11/22/20 08:18 Lorazepam (Ativan) 1 mg PRN Q4HRS PRN PO ANXIETY / AGITATION 08/24/20 18:45 09/04/20 16:12 DC 09/04/20 01:29 Atorvastatin Calcium (Lipitor) 40 mg QHS PO 08/24/20 21:00 11/22/20 20:04 Pantoprazole Sodium (Protonix) 40 mg DAILY08 PO 08/25/20 08:00 11/22/20 08:19 Multivitamins/ Calcium (Thera-M Plus) 1 tab DAILY PO 08/25/20 09:00 11/22/20 08:18 Mupirocin (Bactroban) 1 césar BID92 TP 08/25/20 09:00 09/03/20 12:35 DC 09/01/20 14:00 Fish Oil (Fish Oil) 1,000 mg DAILY PO 08/25/20 09:00 11/08/20 18:17 DC 11/07/20 08:19 Olanzapine (ZyPREXA ZYDIS) 2.5 mg PRN Q2HR PRN PO PSYCHOSIS 08/24/20 19:45 11/16/20 12:58 Sertraline HCl (Zoloft) 25 mg DAILY PO 08/26/20 09:00 08/28/20 21:00 DC 08/28/20 08:37 Sertraline HCl (Zoloft) 50 mg DAILY PO 08/29/20 09:00 09/06/20 18:40 DC 09/04/20 08:58 Tamsulosin HCl (Flomax) 0.4 mg QHS PO 08/28/20 21:00 11/22/20 20:05 Mupirocin (Bactroban) 1 césar PRN BID PRN TP RASH 09/03/20 12:45 Diphenhydramine HCl (Benadryl) 50 mg 1X ONCE PO 09/04/20 21:00 09/04/20 21:01 DC 09/04/20 21:21 Olanzapine (ZyPREXA ZYDIS) 5 mg 1X ONCE PO 09/27/20 18:30 09/27/20 18:31 DC 09/27/20 18:30 Divalproex Sodium (Depakote Sprinkles) 125 mg 0900,1700 PO 09/28/20 17:00 10/12/20 17:08 DC 10/12/20 08:18 Furosemide (Lasix) 80 mg 1X ONCE PO 09/30/20 15:30 09/30/20 15:31 DC 09/30/20 16:00 Furosemide (Lasix) 80 mg DAILY PO 10/01/20 09:00 11/08/20 18:17 DC 11/08/20 08:39 Potassium Chloride (Klor-Con) 20 meq DAILYWBKFT PO 10/01/20 08:00 11/22/20 08:19 Trazodone HCl (Desyrel) 50 mg PRN QHS PRN PO INSOMNIA 10/08/20 16:15 11/07/20 18:18 DC 10/09/20 20:15 Divalproex Sodium (Depakote Sprinkles) 125 mg 0900,1300,1700,2100 PO 10/12/20 17:50 10/21/20 17:01 DC 10/21/20 12:26 Divalproex Sodium (Depakote Sprinkles) 125 mg 1300,1700 PO 10/21/20 17:00 10/25/20 17:17 DC 10/25/20 15:29 Divalproex Sodium (Depakote Sprinkles) 250 mg 0900,2100 PO 10/21/20 21:00 10/25/20 17:17 DC 10/25/20 09:09 Divalproex Sodium (Depakote Sprinkles) 250 mg QID PO 10/25/20 17:15 11/22/20 20:04 Trazodone HCl (Desyrel) 50 mg HS PO 11/07/20 21:00 11/22/20 20:04 Furosemide (Lasix) 40 mg DAILY PO 11/09/20 09:00 11/22/20 08:18 I have reviewed the current psychotropics carefully including drug interactions. Risk benefit ratio favors no change other than as noted in my dictated progress note. Diagnosis: Problems: (1) Impulse control disorder, unspecified (2) Anxiety disorder, unspecified (3) Dementia, vascular, with depression (4) Dementia, vascular, with delusions (5) Dementia in Alzheimer's disease with depression (6) Dementia in Alzheimer's disease with delusions (7) Dementia of the Alzheimer's type with early onset with behavioral disturbance (8) Major neurocognitive disorder VERENA AGUSTIN MD Nov 22, 2020 21:49
[2020-11-23 05:30] VITALS: BP 105/60
--- NOTE | 2020-11-23 06:35 | PDOC ---
Exam Note: Fercho Note: This note is a late entry for 11/22/2020 covers elements not covered in my initial note. Subjective: The patient was seen face to face in the evening of 11/22/2020 with Flower ABREU, discussed and reviewed the chart. He slept 7-1/2 hours previous night. The patient remains confused, wanders the hallways, not aggressive. I met with him in the dayroom. He was seated in front of the TV eyes closed, oblivious of his situation but has a pleasant smile. Review of Systems: No CV, , pulmonary, eye, ENT system symptoms on review. Mental Status Exam: The patient is oriented to himself. Insight and judgment, recent and remote memory, attention and concentration, fund of knowledge is poor consistent with his diagnoses. Laboratory Data: Reviewed. Impression: Major neurocognitive disorder Alzheimer vascular with delusion, depression, behavioral disturbance. Anxiety disorder unspecified. Impulse control disorder unspecified. Plan: No change from initial note. Assessment: Vital Signs/I&O: Vital Signs Date Time Temp Pulse Resp B/P (MAP) Pulse Ox O2 Delivery O2 Flow Rate FiO2 11/23/20 05:30 98.1 60 14 105/60 (75) 98 Room Air I & O 11/22/20 11/22/20 11/23/20 15:00 23:00 07:00 Intake Total 840 ml 600 ml Balance 840 ml 600 ml Current Medications: Meds: Current Medications Medications (Trade) Dose Ordered Sig/Ashvin Route PRN Reason Start Time Stop Time Status Last Admin Dose Admin Acetaminophen (Tylenol) 650 mg PRN Q6HRS PRN PO MILD PAIN / TEMP > 100.3'F 08/24/20 18:15 11/14/20 05:44 Multi-Ingredient Ointment (Analgesic [place]) 1 césar PRN QID PRN TP MUSCLE PAIN 08/24/20 18:15 Al Hydroxide/Mg Hydroxide (Mylanta Plus Xs) 15 ml PRN AFTMEALHC PRN PO DYSPEPSIA 08/24/20 18:15 Magnesium Hydroxide (Milk Of Magnesia) 2,400 mg PRN QHS PRN PO CONSTIPATION 08/24/20 18:15 11/10/20 16:58 Aspirin (Aspirin Chewable) 81 mg DAILY PO 08/25/20 09:00 11/22/20 08:18 Cetirizine HCl (ZyrTEC) 10 mg DAILY08 PO 08/25/20 08:00 11/22/20 08:18 Donepezil HCl (Aricept) 23 mg QHS PO 08/24/20 21:00 08/28/20 15:38 DC 08/27/20 20:34 Fluoxetine HCl (PROzac) 20 mg DAILY PO 08/25/20 09:00 11/22/20 08:18 Lorazepam (Ativan) 1 mg PRN Q4HRS PRN PO ANXIETY / AGITATION 08/24/20 18:45 09/04/20 16:12 DC 09/04/20 01:29 Atorvastatin Calcium (Lipitor) 40 mg QHS PO 08/24/20 21:00 11/22/20 20:04 Pantoprazole Sodium (Protonix) 40 mg DAILY08 PO 08/25/20 08:00 11/22/20 08:19 Multivitamins/ Calcium (Thera-M Plus) 1 tab DAILY PO 08/25/20 09:00 11/22/20 08:18 Mupirocin (Bactroban) 1 césar BID92 TP 08/25/20 09:00 09/03/20 12:35 DC 09/01/20 14:00 Fish Oil (Fish Oil) 1,000 mg DAILY PO 08/25/20 09:00 11/08/20 18:17 DC 11/07/20 08:19 Olanzapine (ZyPREXA ZYDIS) 2.5 mg PRN Q2HR PRN PO PSYCHOSIS 08/24/20 19:45 11/16/20 12:58 Sertraline HCl (Zoloft) 25 mg DAILY PO 08/26/20 09:00 08/28/20 21:00 DC 08/28/20 08:37 Sertraline HCl (Zoloft) 50 mg DAILY PO 08/29/20 09:00 09/06/20 18:40 DC 09/04/20 08:58 Tamsulosin HCl (Flomax) 0.4 mg QHS PO 08/28/20 21:00 11/22/20 20:05 Mupirocin (Bactroban) 1 césar PRN BID PRN TP RASH 09/03/20 12:45 Diphenhydramine HCl (Benadryl) 50 mg 1X ONCE PO 09/04/20 21:00 09/04/20 21:01 DC 09/04/20 21:21 Olanzapine (ZyPREXA ZYDIS) 5 mg 1X ONCE PO 09/27/20 18:30 09/27/20 18:31 DC 09/27/20 18:30 Divalproex Sodium (Depakote Sprinkles) 125 mg 0900,1700 PO 09/28/20 17:00 10/12/20 17:08 DC 10/12/20 08:18 Furosemide (Lasix) 80 mg 1X ONCE PO 09/30/20 15:30 09/30/20 15:31 DC 09/30/20 16:00 Furosemide (Lasix) 80 mg DAILY PO 10/01/20 09:00 11/08/20 18:17 DC 11/08/20 08:39 Potassium Chloride (Klor-Con) 20 meq DAILYWBKFT PO 10/01/20 08:00 11/22/20 08:19 Trazodone HCl (Desyrel) 50 mg PRN QHS PRN PO INSOMNIA 10/08/20 16:15 11/07/20 18:18 DC 10/09/20 20:15 Divalproex Sodium (Depakote Sprinkles) 125 mg 0900,1300,1700,2100 PO 10/12/20 17:50 10/21/20 17:01 DC 10/21/20 12:26 Divalproex Sodium (Depakote Sprinkles) 125 mg 1300,1700 PO 10/21/20 17:00 10/25/20 17:17 DC 10/25/20 15:29 Divalproex Sodium (Depakote Sprinkles) 250 mg 0900,2100 PO 10/21/20 21:00 10/25/20 17:17 DC 10/25/20 09:09 Divalproex Sodium (Depakote Sprinkles) 250 mg QID PO 10/25/20 17:15 11/22/20 20:04 Trazodone HCl (Desyrel) 50 mg HS PO 11/07/20 21:00 11/22/20 20:04 Furosemide (Lasix) 40 mg DAILY PO 11/09/20 09:00 11/22/20 08:18 I have reviewed the current psychotropics carefully including drug interactions. Risk benefit ratio favors no change other than as noted in my dictated progress note. Diagnosis: Problems: (1) Impulse control disorder, unspecified (2) Anxiety disorder, unspecified (3) Dementia, vascular, with depression (4) Dementia, vascular, with delusions (5) Dementia in Alzheimer's disease with depression (6) Dementia in Alzheimer's disease with delusions (7) Dementia of the Alzheimer's type with early onset with behavioral dist urbance (8) Major neurocognitive disorder VERENA AGUSTIN MD Nov 23, 2020 06:35
[2020-11-23] MEDS: CETIRIZINE HCL 10 MG TABLET PO SCH (08:26)
[2020-11-23] MEDS: FUROSEMIDE 40 MG TABLET PO SCH (08:26)
[2020-11-23] MEDS: ASPIRIN CHEWABLE 81 MG TABLET. PO SCH (08:26)
[2020-11-23] MEDS: MULTIVITAMIN with MINERAL TABLET. PO SCH (08:26)
[2020-11-23] MEDS: POTASSIUM CHLORIDE 20 MEQ TABLET.ER. PO SCH (08:26)
[2020-11-23] MEDS: DIVALPROEX 125 MG CAP.SPRINK PO SCH ×4 (08:27→20:07)
[2020-11-23] MEDS: PANTOPRAZOLE 40 MG TABLET. PO SCH (08:27)
[2020-11-23 15:54] VITALS: BP 111/72
[2020-11-23] MEDS: TAMSULOSIN 0.4 MG CAP.ER.24H. PO SCH (20:07)
[2020-11-23] MEDS: ATORVASTATIN CALCIUM 20 MG TABLET PO SCH (20:07)
[2020-11-23] MEDS: traZODone 50 MG TABLET. PO SCH (20:07)
--- NOTE | 2020-11-23 21:51 | PDOC ---
Exam Note: Fercho Note: Please also refer to the separate dictated note~for this date of service dictated separately.~Patient seen individually. Discussed the patient with Nursing staff reviewed the chart.~Reviewed interim history and current functioning. Reviewed vital signs,~Labs/ Radiology~and current medications noted below. Continue current treatment with the changes noted in the dictated addendum note Assessment: Vital Signs/I&O: Vital Signs Date Time Temp Pulse Resp B/P (MAP) Pulse Ox O2 Delivery O2 Flow Rate FiO2 11/23/20 15:54 97.7 86 16 111/72 (85) 98 11/23/20 05:30 Room Air I & O 11/22/20 11/22/20 11/23/20 14:59 22:59 06:59 Intake Total 840 ml 600 ml Balance 840 ml 600 ml Labs: Laboratory Tests Test 11/23/20 10:52 SARS-CoV-2 (PCR) Negative (NEGATIVE) Current Medications: Meds: Laboratory Tests Test 11/23/20 10:52 Coronavirus (COVID-19)(PCR) Negative Current Medications Medications (Trade) Dose Ordered Sig/Ashvin Route PRN Reason Start Time Stop Time Status Last Admin Dose Admin Acetaminophen (Tylenol) 650 mg PRN Q6HRS PRN PO MILD PAIN / TEMP > 100.3'F 08/24/20 18:15 11/14/20 05:44 Multi-Ingredient Ointment (Analgesic [place]) 1 césar PRN QID PRN TP MUSCLE PAIN 08/24/20 18:15 Al Hydroxide/Mg Hydroxide (Mylanta Plus Xs) 15 ml PRN AFTMEALHC PRN PO DYSPEPSIA 08/24/20 18:15 Magnesium Hydroxide (Milk Of Magnesia) 2,400 mg PRN QHS PRN PO CONSTIPATION 08/24/20 18:15 11/10/20 16:58 Aspirin (Aspirin Chewable) 81 mg DAILY PO 08/25/20 09:00 11/23/20 08:26 Cetirizine HCl (ZyrTEC) 10 mg DAILY08 PO 08/25/20 08:00 11/23/20 08:26 Donepezil HCl (Aricept) 23 mg QHS PO 08/24/20 21:00 08/28/20 15:38 DC 08/27/20 20:34 Fluoxetine HCl (PROzac) 20 mg DAILY PO 08/25/20 09:00 11/23/20 08:26 Lorazepam (Ativan) 1 mg PRN Q4HRS PRN PO ANXIETY / AGITATION 08/24/20 18:45 09/04/20 16:12 DC 09/04/20 01:29 Atorvastatin Calcium (Lipitor) 40 mg QHS PO 08/24/20 21:00 11/23/20 20:07 Pantoprazole Sodium (Protonix) 40 mg DAILY08 PO 08/25/20 08:00 11/23/20 08:27 Multivitamins/ Calcium (Thera-M Plus) 1 tab DAILY PO 08/25/20 09:00 11/23/20 08:26 Mupirocin (Bactroban) 1 césar BID92 TP 08/25/20 09:00 09/03/20 12:35 DC 09/01/20 14:00 Fish Oil (Fish Oil) 1,000 mg DAILY PO 08/25/20 09:00 11/08/20 18:17 DC 11/07/20 08:19 Olanzapine (ZyPREXA ZYDIS) 2.5 mg PRN Q2HR PRN PO PSYCHOSIS 08/24/20 19:45 11/16/20 12:58 Sertraline HCl (Zoloft) 25 mg DAILY PO 08/26/20 09:00 08/28/20 21:00 DC 08/28/20 08:37 Sertraline HCl (Zoloft) 50 mg DAILY PO 08/29/20 09:00 09/06/20 18:40 DC 09/04/20 08:58 Tamsulosin HCl (Flomax) 0.4 mg QHS PO 08/28/20 21:00 11/23/20 20:07 Mupirocin (Bactroban) 1 césar PRN BID PRN TP RASH 09/03/20 12:45 Diphenhydramine HCl (Benadryl) 50 mg 1X ONCE PO 09/04/20 21:00 09/04/20 21:01 DC 09/04/20 21:21 Olanzapine (ZyPREXA ZYDIS) 5 mg 1X ONCE PO 09/27/20 18:30 09/27/20 18:31 DC 09/27/20 18:30 Divalproex Sodium (Depakote Sprinkles) 125 mg 0900,1700 PO 09/28/20 17:00 10/12/20 17:08 DC 10/12/20 08:18 Furosemide (Lasix) 80 mg 1X ONCE PO 09/30/20 15:30 09/30/20 15:31 DC 09/30/20 16:00 Furosemide (Lasix) 80 mg DAILY PO 10/01/20 09:00 11/08/20 18:17 DC 11/08/20 08:39 Potassium Chloride (Klor-Con) 20 meq DAILYWBKFT PO 10/01/20 08:00 11/23/20 08:26 Trazodone HCl (Desyrel) 50 mg PRN QHS PRN PO INSOMNIA 10/08/20 16:15 11/07/20 18:18 DC 10/09/20 20:15 Divalproex Sodium (Depakote Sprinkles) 125 mg 0900,1300,1700,2100 PO 10/12/20 17:50 10/21/20 17:01 DC 10/21/20 12:26 Divalproex Sodium (Depakote Sprinkles) 125 mg 1300,1700 PO 10/21/20 17:00 10/25/20 17:17 DC 10/25/20 15:29 Divalproex Sodium (Depakote Sprinkles) 250 mg 0900,2100 PO 10/21/20 21:00 10/25/20 17:17 DC 10/25/20 09:09 Divalproex Sodium (Depakote Sprinkles) 250 mg QID PO 10/25/20 17:15 11/23/20 20:07 Trazodone HCl (Desyrel) 50 mg HS PO 11/07/20 21:00 11/23/20 20:07 Furosemide (Lasix) 40 mg DAILY PO 11/09/20 09:00 11/23/20 08:26 I have reviewed the current psychotropics carefully including drug interactions. Risk benefit ratio favors no change other than as noted in my dictated progress note. Diagnosis: Problems: (1) Impulse control disorder, unspecified (2) Anxiety disorder, unspecified (3) Dementia, vascular, with depression (4) Dementia, vascular, with delusions (5) Dementia in Alzheimer's disease with depression (6) Dementia in Alzheimer's disease with delusions (7) Dementia of the Alzheimer's type with early onset with behavioral disturbance (8) Major neurocognitive disorder VERENA AGUSTIN MD Nov 23, 2020 21:51
[2020-11-24 06:43] VITALS: BP 114/84
[2020-11-24] MEDS: DIVALPROEX 125 MG CAP.SPRINK PO SCH ×4 (08:39→20:16)
[2020-11-24] MEDS: CETIRIZINE HCL 10 MG TABLET PO SCH (08:39)
[2020-11-24] MEDS: ASPIRIN CHEWABLE 81 MG TABLET. PO SCH (08:39)
[2020-11-24] MEDS: POTASSIUM CHLORIDE 20 MEQ TABLET.ER. PO SCH (08:39)
[2020-11-24] MEDS: FUROSEMIDE 40 MG TABLET PO SCH (08:39)
[2020-11-24] MEDS: MULTIVITAMIN with MINERAL TABLET. PO SCH (08:40)
[2020-11-24] MEDS: PANTOPRAZOLE 40 MG TABLET. PO SCH (08:40)
--- NOTE | 2020-11-24 11:49 | TX PLAN ---
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 Change Sleep, Confusion/Disoriented, Poor impulse control, Other Problem in Patient's Words: I cannot care for him at home. Additional Admission Comments: According to the intake, pt was anxious, wandering, restless, insomnia, posturing [facility] staff, struck which resulted in police response Problems Active Problems: wandering restless Inactive Problems: medication compliant Pt Strengths/Limitations Ability for [place]: Poor Cognitive Functioning/Ability: Fair Communication Skills/Ability: Fair Financial Resources: Poor Insight/Judgement: Poor Intellectual Ability: Poor Physical Health: Fair Social Skills: Fair Stability in Family: Fair Stability in School/Work: Poor Verbal Skills: Fair Discharge Criteria Discharge Criteria: No need for close observ., Adequate arrangements @DC, Improved behavior, Improved mood/thought Preliminary Discharge Plan Preliminary DC Plan: Placement Needed Special Precautions Fall Risk: Low Initial D/C Plan Pt is not able to discharge home, will need placement once stable. Identified Discharge Needs: Referral for higher level of care Currently Utilized Resources Currently Utilized Resources/P: Primary Care Physician Identified Problems/Hx/Goals Objectives/Short-Term Goals Short Term Goals: Dec. Aggression, Dec. Outbursts, Medication Stabilization, Monitor Med Effects Short Term Goals in Patient's: N/A Interventions/Frequency Staff Interventions/Frequency&: Psychiatrist to assess pt at least 3x per week for medication management. Social Work to assess pt at least 2x per week to identify barriers to care and finalize discharge planning. Nursing to assess medication effects, behavior modification, and completion of 15 minute checks daily. Encourage participation in group activities (if applicable) or 1:1 engagement based off Activity Dept goals. 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 He received a Bachelors in Sociology. Community Follow-up Primary Care Physician Referrals to higher level of care Community Provider/Family Inpu: Pt has become increasingly aggressive towards his , who is caring for pt. She is not able to care for pt at home any longer. Treatment Plan Explained Patient/Inspector Penetrant had this treatment plan explained to him/her as indicated by the signature below and has been given the opportunity to ask questions and make suggestions: Date: Patient/Inspector Penetrant Signature: Status Update Update Pt is eating 100% of meals and slept 8 hours per night. Pt is calm and cooperative with all staff direction; pt is compliant with medications crushed. Pt continues to be pleasant and disorganized but redirectable. Pt has attended four groups this week with moderate participation. Pt has placement at [facility]; SW has not been able to communicate with pt on making all the arrangements needed in order to make the move happen. SW will continue to work on this and get pt discharge arranged. WALESKA HARRELL Nov 24, 2020 11:49
[2020-11-24 15:29] VITALS: BP 115/63
[2020-11-24] MEDS: TAMSULOSIN 0.4 MG CAP.ER.24H. PO SCH (20:15)
[2020-11-24] MEDS: ATORVASTATIN CALCIUM 20 MG TABLET PO SCH (20:15)
[2020-11-24] MEDS: traZODone 50 MG TABLET. PO SCH (20:16)
--- NOTE | 2020-11-24 22:08 | PDOC ---
Exam Note: Fercho Note: Please also refer to the separate dictated note~for this date of service dictated separately.~Patient seen individually. Discussed the patient with Nursing staff reviewed the chart.~Reviewed interim history and current functioning. Reviewed vital signs,~Labs/ Radiology~and current medications noted below. Continue current treatment with the changes noted in the dictated addendum note Assessment: Vital Signs/I&O: Vital Signs Date Time Temp Pulse Resp B/P (MAP) Pulse Ox O2 Delivery O2 Flow Rate FiO2 11/24/20 15:29 97.4 72 16 115/63 (80) 97 11/24/20 06:43 Room Air I & O 11/23/20 11/23/20 11/24/20 15:00 23:00 07:00 Intake Total 720 ml 480 ml Balance 720 ml 480 ml Current Medications: Meds: Current Medications Medications (Trade) Dose Ordered Sig/Ashvin Route PRN Reason Start Time Stop Time Status Last Admin Dose Admin Acetaminophen (Tylenol) 650 mg PRN Q6HRS PRN PO MILD PAIN / TEMP > 100.3'F 08/24/20 18:15 11/14/20 05:44 Multi-Ingredient Ointment (Analgesic [place]) 1 césar PRN QID PRN TP MUSCLE PAIN 08/24/20 18:15 Al Hydroxide/Mg Hydroxide (Mylanta Plus Xs) 15 ml PRN AFTMEALHC PRN PO DYSPEPSIA 08/24/20 18:15 Magnesium Hydroxide (Milk Of Magnesia) 2,400 mg PRN QHS PRN PO CONSTIPATION 08/24/20 18:15 11/10/20 16:58 Aspirin (Aspirin Chewable) 81 mg DAILY PO 08/25/20 09:00 11/24/20 08:39 Cetirizine HCl (ZyrTEC) 10 mg DAILY08 PO 08/25/20 08:00 11/24/20 08:39 Donepezil HCl (Aricept) 23 mg QHS PO 08/24/20 21:00 08/28/20 15:38 DC 08/27/20 20:34 Fluoxetine HCl (PROzac) 20 mg DAILY PO 08/25/20 09:00 11/24/20 08:39 Lorazepam (Ativan) 1 mg PRN Q4HRS PRN PO ANXIETY / AGITATION 08/24/20 18:45 09/04/20 16:12 DC 09/04/20 01:29 Atorvastatin Calcium (Lipitor) 40 mg QHS PO 08/24/20 21:00 11/24/20 20:15 Pantoprazole Sodium (Protonix) 40 mg DAILY08 PO 08/25/20 08:00 11/24/20 08:40 Multivitamins/ Calcium (Thera-M Plus) 1 tab DAILY PO 08/25/20 09:00 11/24/20 08:40 Mupirocin (Bactroban) 1 césar BID92 TP 08/25/20 09:00 09/03/20 12:35 DC 09/01/20 14:00 Fish Oil (Fish Oil) 1,000 mg DAILY PO 08/25/20 09:00 11/08/20 18:17 DC 11/07/20 08:19 Olanzapine (ZyPREXA ZYDIS) 2.5 mg PRN Q2HR PRN PO PSYCHOSIS 08/24/20 19:45 11/16/20 12:58 Sertraline HCl (Zoloft) 25 mg DAILY PO 08/26/20 09:00 08/28/20 21:00 DC 08/28/20 08:37 Sertraline HCl (Zoloft) 50 mg DAILY PO 08/29/20 09:00 09/06/20 18:40 DC 09/04/20 08:58 Tamsulosin HCl (Flomax) 0.4 mg QHS PO 08/28/20 21:00 11/24/20 20:15 Mupirocin (Bactroban) 1 césar PRN BID PRN TP RASH 09/03/20 12:45 Diphenhydramine HCl (Benadryl) 50 mg 1X ONCE PO 09/04/20 21:00 09/04/20 21:01 DC 09/04/20 21:21 Olanzapine (ZyPREXA ZYDIS) 5 mg 1X ONCE PO 09/27/20 18:30 09/27/20 18:31 DC 09/27/20 18:30 Divalproex Sodium (Depakote Sprinkles) 125 mg 0900,1700 PO 09/28/20 17:00 10/12/20 17:08 DC 10/12/20 08:18 Furosemide (Lasix) 80 mg 1X ONCE PO 09/30/20 15:30 09/30/20 15:31 DC 09/30/20 16:00 Furosemide (Lasix) 80 mg DAILY PO 10/01/20 09:00 11/08/20 18:17 DC 11/08/20 08:39 Potassium Chloride (Klor-Con) 20 meq DAILYWBKFT PO 10/01/20 08:00 11/24/20 08:39 Trazodone HCl (Desyrel) 50 mg PRN QHS PRN PO INSOMNIA 10/08/20 16:15 11/07/20 18:18 DC 10/09/20 20:15 Divalproex Sodium (Depakote Sprinkles) 125 mg 0900,1300,1700,2100 PO 10/12/20 17:50 10/21/20 17:01 DC 10/21/20 12:26 Divalproex Sodium (Depakote Sprinkles) 125 mg 1300,1700 PO 10/21/20 17:00 10/25/20 17:17 DC 10/25/20 15:29 Divalproex Sodium (Depakote Sprinkles) 250 mg 0900,2100 PO 10/21/20 21:00 10/25/20 17:17 DC 10/25/20 09:09 Divalproex Sodium (Depakote Sprinkles) 250 mg QID PO 10/25/20 17:15 11/24/20 20:16 Trazodone HCl (Desyrel) 50 mg HS PO 11/07/20 21:00 11/24/20 20:16 Furosemide (Lasix) 40 mg DAILY PO 11/09/20 09:00 11/24/20 08:39 I have reviewed the current psychotropics carefully including drug interactions. Risk benefit ratio favors no change other than as noted in my dictated progress note. Diagnosis: Problems: (1) Impulse control disorder, unspecified (2) Anxiety disorder, unspecified (3) Dementia, vascular, with depression (4) Dementia, vascular, with delusions (5) Dementia in Alzheimer's disease with depression (6) Dementia in Alzheimer's disease with delusions (7) Dementia of the Alzheimer's type with early onset with behavioral disturbance (8) Major neurocognitive disorder VERENA AGUSTIN MD Nov 24, 2020 22:08
[2020-11-25 06:13] VITALS: BP 129/66
--- NOTE | 2020-11-25 06:34 | PDOC ---
Exam Note: Fercho Note: This note is a late entry for 11/23/2020 covers elements not covered in my initial note. Subjective: The patient was seen face to face in the evening of 11/23/2020 with Spring ABREU, discussed and reviewed the chart. He slept 6-1/2 hours previous night. The patient was tearful previous evening, but he has done well during the day on 11/23. Review of Systems: No CV, , pulmonary, eye, ENT system symptoms on review. Mental Status Exam: The patient is oriented to himself. Insight and judgment, recent and remote memory, attention and concentration, fund of knowledge is poor consistent with his diagnoses. Laboratory Data: Reviewed. Impression: Major neurocognitive disorder Alzheimer vascular with delusion, depression, behavioral disturbance. Anxiety disorder unspecified. Impulse control disorder unspecified. Plan: No change from initial note. Assessment: Vital Signs/I&O: Vital Signs Date Time Temp Pulse Resp B/P (MAP) Pulse Ox O2 Delivery O2 Flow Rate FiO2 11/25/20 06:13 97.5 59 16 129/66 (87) 100 Room Air I & O 11/24/20 11/24/20 11/25/20 15:00 23:00 07:00 Intake Total 600 ml 600 ml Balance 600 ml 600 ml Current Medications: Meds: Current Medications Medications (Trade) Dose Ordered Sig/Ashvin Route PRN Reason Start Time Stop Time Status Last Admin Dose Admin Acetaminophen (Tylenol) 650 mg PRN Q6HRS PRN PO MILD PAIN / TEMP > 100.3'F 08/24/20 18:15 11/14/20 05:44 Multi-Ingredient Ointment (Analgesic [place]) 1 césar PRN QID PRN TP MUSCLE PAIN 08/24/20 18:15 Al Hydroxide/Mg Hydroxide (Mylanta Plus Xs) 15 ml PRN AFTMEALHC PRN PO DYSPEPSIA 08/24/20 18:15 Magnesium Hydroxide (Milk Of Magnesia) 2,400 mg PRN QHS PRN PO CONSTIPATION 08/24/20 18:15 11/10/20 16:58 Aspirin (Aspirin Chewable) 81 mg DAILY PO 08/25/20 09:00 11/24/20 08:39 Cetirizine HCl (ZyrTEC) 10 mg DAILY08 PO 08/25/20 08:00 11/24/20 08:39 Donepezil HCl (Aricept) 23 mg QHS PO 08/24/20 21:00 08/28/20 15:38 DC 08/27/20 20:34 Fluoxetine HCl (PROzac) 20 mg DAILY PO 08/25/20 09:00 11/24/20 08:39 Lorazepam (Ativan) 1 mg PRN Q4HRS PRN PO ANXIETY / AGITATION 08/24/20 18:45 09/04/20 16:12 DC 09/04/20 01:29 Atorvastatin Calcium (Lipitor) 40 mg QHS PO 08/24/20 21:00 11/24/20 20:15 Pantoprazole Sodium (Protonix) 40 mg DAILY08 PO 08/25/20 08:00 11/24/20 08:40 Multivitamins/ Calcium (Thera-M Plus) 1 tab DAILY PO 08/25/20 09:00 11/24/20 08:40 Mupirocin (Bactroban) 1 césar BID92 TP 08/25/20 09:00 09/03/20 12:35 DC 09/01/20 14:00 Fish Oil (Fish Oil) 1,000 mg DAILY PO 08/25/20 09:00 11/08/20 18:17 DC 11/07/20 08:19 Olanzapine (ZyPREXA ZYDIS) 2.5 mg PRN Q2HR PRN PO PSYCHOSIS 08/24/20 19:45 11/16/20 12:58 Sertraline HCl (Zoloft) 25 mg DAILY PO 08/26/20 09:00 08/28/20 21:00 DC 08/28/20 08:37 Sertraline HCl (Zoloft) 50 mg DAILY PO 08/29/20 09:00 09/06/20 18:40 DC 09/04/20 08:58 Tamsulosin HCl (Flomax) 0.4 mg QHS PO 08/28/20 21:00 11/24/20 20:15 Mupirocin (Bactroban) 1 césar PRN BID PRN TP RASH 09/03/20 12:45 Diphenhydramine HCl (Benadryl) 50 mg 1X ONCE PO 09/04/20 21:00 09/04/20 21:01 DC 09/04/20 21:21 Olanzapine (ZyPREXA ZYDIS) 5 mg 1X ONCE PO 09/27/20 18:30 09/27/20 18:31 DC 09/27/20 18:30 Divalproex Sodium (Depakote Sprinkles) 125 mg 0900,1700 PO 09/28/20 17:00 10/12/20 17:08 DC 10/12/20 08:18 Furosemide (Lasix) 80 mg 1X ONCE PO 09/30/20 15:30 09/30/20 15:31 DC 09/30/20 16:00 Furosemide (Lasix) 80 mg DAILY PO 10/01/20 09:00 11/08/20 18:17 DC 11/08/20 08:39 Potassium Chloride (Klor-Con) 20 meq DAILYWBKFT PO 10/01/20 08:00 11/24/20 08:39 Trazodone HCl (Desyrel) 50 mg PRN QHS PRN PO INSOMNIA 10/08/20 16:15 11/07/20 18:18 DC 10/09/20 20:15 Divalproex Sodium (Depakote Sprinkles) 125 mg 0900,1300,1700,2100 PO 10/12/20 17:50 10/21/20 17:01 DC 10/21/20 12:26 Divalproex Sodium (Depakote Sprinkles) 125 mg 1300,1700 PO 10/21/20 17:00 10/25/20 17:17 DC 10/25/20 15:29 Divalproex Sodium (Depakote Sprinkles) 250 mg 0900,2100 PO 10/21/20 21:00 10/25/20 17:17 DC 10/25/20 09:09 Divalproex Sodium (Depakote Sprinkles) 250 mg QID PO 10/25/20 17:15 11/24/20 20:16 Trazodone HCl (Desyrel) 50 mg HS PO 11/07/20 21:00 11/24/20 20:16 Furosemide (Lasix) 40 mg DAILY PO 11/09/20 09:00 11/24/20 08:39 I have reviewed the current psychotropics carefully including drug interactions. Risk benefit ratio favors no change other than as noted in my dictated progress note. Diagnosis: Problems: (1) Impulse control disorder, unspecified (2) Anxiety disorder, unspecified (3) Dementia, vascular, with depression (4) Dementia, vascular, with delusions (5) Dementia in Alzheimer's disease with depression (6) Dementia in Alzheimer's disease with delusions (7) Dementia of the Alzheimer's type with early onset with behavioral disturbance (8) Major neurocognitive disorder VERENA AGUSTIN MD Nov 25, 2020 06:34
--- NOTE | 2020-11-25 06:56 | PDOC ---
Exam Note: Fercho Note: This note is a late entry for 11/24/2020 covers elements not covered in my initial note. Subjective: The patient was reviewed at treatment team meeting individually in the morning on 11/24/2020 with Niecy Naqvi, Ingris Serrano (social media designer), Ingrid, activity therapy and Spring ABREU, discussed and reviewed the chart. He slept 7 hours previous night. Appetite 75%. He attended 4 groups in the past one week. He is confused, pleasant, smiling, oblivious of his surroundings. Review of Systems: No CV, , pulmonary, eye, ENT system symptoms on review. Mental Status Exam: The patient is oriented to himself. Insight and judgment, recent and remote memory, attention and concentration, fund of knowledge is poor consistent with his diagnoses. Laboratory Data: Reviewed. Impression: Major neurocognitive disorder Alzheimer vascular with delusion, depression, behavioral disturbance. Anxiety disorder unspecified. Impulse control disorder unspecified. Plan: No change from initial note. Assessment: Vital Signs/I&O: Vital Signs Date Time Temp Pulse Resp B/P (MAP) Pulse Ox O2 Delivery O2 Flow Rate FiO2 11/25/20 06:13 97.5 59 16 129/66 (87) 100 Room Air I & O 11/24/20 11/24/20 11/25/20 15:00 23:00 07:00 Intake Total 600 ml 600 ml Balance 600 ml 600 ml Current Medications: Meds: Current Medications Medications (Trade) Dose Ordered Sig/Ashvin Route PRN Reason Start Time Stop Time Status Last Admin Dose Admin Acetaminophen (Tylenol) 650 mg PRN Q6HRS PRN PO MILD PAIN / TEMP > 100.3'F 08/24/20 18:15 11/14/20 05:44 Multi-Ingredient Ointment (Analgesic [place]) 1 césar PRN QID PRN TP MUSCLE PAIN 08/24/20 18:15 Al Hydroxide/Mg Hydroxide (Mylanta Plus Xs) 15 ml PRN AFTMEALHC PRN PO DYSPEPSIA 08/24/20 18:15 Magnesium Hydroxide (Milk Of Magnesia) 2,400 mg PRN QHS PRN PO CONSTIPATION 08/24/20 18:15 11/10/20 16:58 Aspirin (Aspirin Chewable) 81 mg DAILY PO 08/25/20 09:00 11/24/20 08:39 Cetirizine HCl (ZyrTEC) 10 mg DAILY08 PO 08/25/20 08:00 11/24/20 08:39 Donepezil HCl (Aricept) 23 mg QHS PO 08/24/20 21:00 08/28/20 15:38 DC 08/27/20 20:34 Fluoxetine HCl (PROzac) 20 mg DAILY PO 08/25/20 09:00 11/24/20 08:39 Lorazepam (Ativan) 1 mg PRN Q4HRS PRN PO ANXIETY / AGITATION 08/24/20 18:45 09/04/20 16:12 DC 09/04/20 01:29 Atorvastatin Calcium (Lipitor) 40 mg QHS PO 08/24/20 21:00 11/24/20 20:15 Pantoprazole Sodium (Protonix) 40 mg DAILY08 PO 08/25/20 08:00 11/24/20 08:40 Multivitamins/ Calcium (Thera-M Plus) 1 tab DAILY PO 08/25/20 09:00 11/24/20 08:40 Mupirocin (Bactroban) 1 césar BID92 TP 08/25/20 09:00 09/03/20 12:35 DC 09/01/20 14:00 Fish Oil (Fish Oil) 1,000 mg DAILY PO 08/25/20 09:00 11/08/20 18:17 DC 11/07/20 08:19 Olanzapine (ZyPREXA ZYDIS) 2.5 mg PRN Q2HR PRN PO PSYCHOSIS 08/24/20 19:45 11/16/20 12:58 Sertraline HCl (Zoloft) 25 mg DAILY PO 08/26/20 09:00 08/28/20 21:00 DC 08/28/20 08:37 Sertraline HCl (Zoloft) 50 mg DAILY PO 08/29/20 09:00 09/06/20 18:40 DC 09/04/20 08:58 Tamsulosin HCl (Flomax) 0.4 mg QHS PO 08/28/20 21:00 11/24/20 20:15 Mupirocin (Bactroban) 1 césar PRN BID PRN TP RASH 09/03/20 12:45 Diphenhydramine HCl (Benadryl) 50 mg 1X ONCE PO 09/04/20 21:00 09/04/20 21:01 DC 09/04/20 21:21 Olanzapine (ZyPREXA ZYDIS) 5 mg 1X ONCE PO 09/27/20 18:30 09/27/20 18:31 DC 09/27/20 18:30 Divalproex Sodium (Depakote Sprinkles) 125 mg 0900,1700 PO 09/28/20 17:00 10/12/20 17:08 DC 10/12/20 08:18 Furosemide (Lasix) 80 mg 1X ONCE PO 09/30/20 15:30 09/30/20 15:31 DC 09/30/20 16:00 Furosemide (Lasix) 80 mg DAILY PO 10/01/20 09:00 11/08/20 18:17 DC 11/08/20 08:39 Potassium Chloride (Klor-Con) 20 meq DAILYWBKFT PO 10/01/20 08:00 11/24/20 08:39 Trazodone HCl (Desyrel) 50 mg PRN QHS PRN PO INSOMNIA 10/08/20 16:15 11/07/20 18:18 DC 10/09/20 20:15 Divalproex Sodium (Depakote Sprinkles) 125 mg 0900,1300,1700,2100 PO 10/12/20 17:50 10/21/20 17:01 DC 10/21/20 12:26 Divalproex Sodium (Depakote Sprinkles) 125 mg 1300,1700 PO 10/21/20 17:00 10/25/20 17:17 DC 10/25/20 15:29 Divalproex Sodium (Depakote Sprinkles) 250 mg 0900,2100 PO 10/21/20 21:00 10/25/20 17:17 DC 10/25/20 09:09 Divalproex Sodium (Depakote Sprinkles) 250 mg QID PO 10/25/20 17:15 11/24/20 20:16 Trazodone HCl (Desyrel) 50 mg HS PO 11/07/20 21:00 11/24/20 20:16 Furosemide (Lasix) 40 mg DAILY PO 11/09/20 09:00 11/24/20 08:39 I have reviewed the current psychotropics carefully including drug interactions. Risk benefit ratio favors no change other than as noted in my dictated progress note. Diagnosis: Problems: (1) Impulse control disorder, unspecified (2) Anxiety disorder, unspecified (3) Dementia, vascular, with depression (4) Dementia, vascular, with delusions (5) Dementia in Alzheimer's disease with depression (6) Dementia in Alzheimer's disease with delusions (7) Dementia of the Alzheimer's type with early onset with behavioral disturbance (8) Major neurocognitive disorder VERENA AGUSTIN MD Nov 25, 2020 06:56
[2020-11-25] MEDS: CETIRIZINE HCL 10 MG TABLET PO SCH (08:33)
[2020-11-25] MEDS: DIVALPROEX 125 MG CAP.SPRINK PO SCH ×4 (08:33→20:16)
[2020-11-25] MEDS: POTASSIUM CHLORIDE 20 MEQ TABLET.ER. PO SCH (08:33)
[2020-11-25] MEDS: ASPIRIN CHEWABLE 81 MG TABLET. PO SCH (08:33)
[2020-11-25] MEDS: FUROSEMIDE 40 MG TABLET PO SCH (08:33)
[2020-11-25] MEDS: MULTIVITAMIN with MINERAL TABLET. PO SCH (08:33)
[2020-11-25] MEDS: PANTOPRAZOLE 40 MG TABLET. PO SCH (08:34)
[2020-11-25 15:39] VITALS: BP 98/64
[2020-11-25] MEDS: traZODone 50 MG TABLET. PO SCH (20:15)
[2020-11-25] MEDS: TAMSULOSIN 0.4 MG CAP.ER.24H. PO SCH (20:15)
[2020-11-25] MEDS: ATORVASTATIN CALCIUM 20 MG TABLET PO SCH (20:16)
--- NOTE | 2020-11-25 21:30 | PDOC ---
Exam Note: Fercho Note: Please also refer to the separate dictated note~for this date of service dictated separately.~Patient seen individually. Discussed the patient with Nursing staff reviewed the chart.~Reviewed interim history and current functioning. Reviewed vital signs,~Labs/ Radiology~and current medications noted below. Continue current treatment with the changes noted in the dictated addendum note Assessment: Vital Signs/I&O: Vital Signs Date Time Temp Pulse Resp B/P (MAP) Pulse Ox O2 Delivery O2 Flow Rate FiO2 11/25/20 15:39 98.3 72 17 98/64 (75) 98 Room Air I & O 11/24/20 11/24/20 11/25/20 15:00 23:00 07:00 Intake Total 600 ml 600 ml Balance 600 ml 600 ml Current Medications: Meds: Current Medications Medications (Trade) Dose Ordered Sig/Ashvin Route PRN Reason Start Time Stop Time Status Last Admin Dose Admin Acetaminophen (Tylenol) 650 mg PRN Q6HRS PRN PO MILD PAIN / TEMP > 100.3'F 08/24/20 18:15 11/14/20 05:44 Multi-Ingredient Ointment (Analgesic [place]) 1 césar PRN QID PRN TP MUSCLE PAIN 08/24/20 18:15 Al Hydroxide/Mg Hydroxide (Mylanta Plus Xs) 15 ml PRN AFTMEALHC PRN PO DYSPEPSIA 08/24/20 18:15 Magnesium Hydroxide (Milk Of Magnesia) 2,400 mg PRN QHS PRN PO CONSTIPATION 08/24/20 18:15 11/10/20 16:58 Aspirin (Aspirin Chewable) 81 mg DAILY PO 08/25/20 09:00 11/25/20 08:33 Cetirizine HCl (ZyrTEC) 10 mg DAILY08 PO 08/25/20 08:00 11/25/20 08:33 Donepezil HCl (Aricept) 23 mg QHS PO 08/24/20 21:00 08/28/20 15:38 DC 08/27/20 20:34 Fluoxetine HCl (PROzac) 20 mg DAILY PO 08/25/20 09:00 11/25/20 08:33 Lorazepam (Ativan) 1 mg PRN Q4HRS PRN PO ANXIETY / AGITATION 08/24/20 18:45 09/04/20 16:12 DC 09/04/20 01:29 Atorvastatin Calcium (Lipitor) 40 mg QHS PO 08/24/20 21:00 11/25/20 20:16 Pantoprazole Sodium (Protonix) 40 mg DAILY08 PO 08/25/20 08:00 11/25/20 08:34 Multivitamins/ Calcium (Thera-M Plus) 1 tab DAILY PO 08/25/20 09:00 11/25/20 08:33 Mupirocin (Bactroban) 1 césar BID92 TP 08/25/20 09:00 09/03/20 12:35 DC 09/01/20 14:00 Fish Oil (Fish Oil) 1,000 mg DAILY PO 08/25/20 09:00 11/08/20 18:17 DC 11/07/20 08:19 Olanzapine (ZyPREXA ZYDIS) 2.5 mg PRN Q2HR PRN PO PSYCHOSIS 08/24/20 19:45 11/16/20 12:58 Sertraline HCl (Zoloft) 25 mg DAILY PO 08/26/20 09:00 08/28/20 21:00 DC 08/28/20 08:37 Sertraline HCl (Zoloft) 50 mg DAILY PO 08/29/20 09:00 09/06/20 18:40 DC 09/04/20 08:58 Tamsulosin HCl (Flomax) 0.4 mg QHS PO 08/28/20 21:00 11/25/20 20:15 Mupirocin (Bactroban) 1 césar PRN BID PRN TP RASH 09/03/20 12:45 Diphenhydramine HCl (Benadryl) 50 mg 1X ONCE PO 09/04/20 21:00 09/04/20 21:01 DC 09/04/20 21:21 Olanzapine (ZyPREXA ZYDIS) 5 mg 1X ONCE PO 09/27/20 18:30 09/27/20 18:31 DC 09/27/20 18:30 Divalproex Sodium (Depakote Sprinkles) 125 mg 0900,1700 PO 09/28/20 17:00 10/12/20 17:08 DC 10/12/20 08:18 Furosemide (Lasix) 80 mg 1X ONCE PO 09/30/20 15:30 09/30/20 15:31 DC 09/30/20 16:00 Furosemide (Lasix) 80 mg DAILY PO 10/01/20 09:00 11/08/20 18:17 DC 11/08/20 08:39 Potassium Chloride (Klor-Con) 20 meq DAILYWBKFT PO 10/01/20 08:00 11/25/20 08:33 Trazodone HCl (Desyrel) 50 mg PRN QHS PRN PO INSOMNIA 10/08/20 16:15 11/07/20 18:18 DC 10/09/20 20:15 Divalproex Sodium (Depakote Sprinkles) 125 mg 0900,1300,1700,2100 PO 10/12/20 17:50 10/21/20 17:01 DC 10/21/20 12:26 Divalproex Sodium (Depakote Sprinkles) 125 mg 1300,1700 PO 10/21/20 17:00 10/25/20 17:17 DC 10/25/20 15:29 Divalproex Sodium (Depakote Sprinkles) 250 mg 0900,2100 PO 10/21/20 21:00 10/25/20 17:17 DC 10/25/20 09:09 Divalproex Sodium (Depakote Sprinkles) 250 mg QID PO 10/25/20 17:15 11/25/20 20:16 Trazodone HCl (Desyrel) 50 mg HS PO 11/07/20 21:00 11/25/20 20:15 Furosemide (Lasix) 40 mg DAILY PO 11/09/20 09:00 11/25/20 08:33 I have reviewed the current psychotropics carefully including drug interactions. Risk benefit ratio favors no change other than as noted in my dictated progress note. Diagnosis: Problems: (1) Impulse control disorder, unspecified (2) Anxiety disorder, unspecified (3) Dementia, vascular, with depression (4) Dementia, vascular, with delusions (5) Dementia in Alzheimer's disease with depression (6) Dementia in Alzheimer's disease with delusions (7) Dementia of the Alzheimer's type with early onset with behavioral disturbance (8) Major neurocognitive disorder VERENA AGUSTIN MD Nov 25, 2020 21:30
[2020-11-26 05:47] VITALS: BP 116/55
[2020-11-26] MEDS: FUROSEMIDE 40 MG TABLET PO SCH (08:20)
[2020-11-26] MEDS: CETIRIZINE HCL 10 MG TABLET PO SCH (08:20)
[2020-11-26] MEDS: POTASSIUM CHLORIDE 20 MEQ TABLET.ER. PO SCH (08:20)
[2020-11-26] MEDS: MULTIVITAMIN with MINERAL TABLET. PO SCH (08:20)
[2020-11-26] MEDS: PANTOPRAZOLE 40 MG TABLET. PO SCH (08:21)
[2020-11-26] MEDS: DIVALPROEX 125 MG CAP.SPRINK PO SCH ×4 (08:21→20:00)
[2020-11-26] MEDS: ASPIRIN CHEWABLE 81 MG TABLET. PO SCH (08:21)
[2020-11-26 15:21] VITALS: BP 132/76
[2020-11-26] MEDS ORDERED: MINERAL OIL/PETROLATUM TOPICAL CREAM 113GM JAR. TP PRN (16:30)
[2020-11-26] MEDS: ATORVASTATIN CALCIUM 20 MG TABLET PO SCH (20:00)
[2020-11-26] MEDS: TAMSULOSIN 0.4 MG CAP.ER.24H. PO SCH (20:00)
[2020-11-26] MEDS: traZODone 50 MG TABLET. PO SCH (20:00)
--- NOTE | 2020-11-26 22:32 | PDOC ---
Exam Note: Fercho Note: Please also refer to the separate dictated note~for this date of service dictated separately.~Patient seen individually. Discussed the patient with Nursing staff reviewed the chart.~Reviewed interim history and current functioning. Reviewed vital signs,~Labs/ Radiology~and current medications noted below. Continue current treatment with the changes noted in the dictated addendum note Assessment: Vital Signs/I&O: Vital Signs Date Time Temp Pulse Resp B/P (MAP) Pulse Ox O2 Delivery O2 Flow Rate FiO2 11/26/20 15:21 97.4 78 20 132/76 (94) 97 Room Air I & O 11/25/20 11/25/20 11/26/20 14:59 22:59 06:59 Intake Total 480 ml 440 ml Balance 480 ml 440 ml Current Medications: Meds: Current Medications Medications (Trade) Dose Ordered Sig/Ashvin Route PRN Reason Start Time Stop Time Status Last Admin Dose Admin Acetaminophen (Tylenol) 650 mg PRN Q6HRS PRN PO MILD PAIN / TEMP > 100.3'F 08/24/20 18:15 11/14/20 05:44 Multi-Ingredient Ointment (Analgesic [place]) 1 césar PRN QID PRN TP MUSCLE PAIN 08/24/20 18:15 Al Hydroxide/Mg Hydroxide (Mylanta Plus Xs) 15 ml PRN AFTMEALHC PRN PO DYSPEPSIA 08/24/20 18:15 Magnesium Hydroxide (Milk Of Magnesia) 2,400 mg PRN QHS PRN PO CONSTIPATION 08/24/20 18:15 11/10/20 16:58 Aspirin (Aspirin Chewable) 81 mg DAILY PO 08/25/20 09:00 11/26/20 08:21 Cetirizine HCl (ZyrTEC) 10 mg DAILY08 PO 08/25/20 08:00 11/26/20 08:20 Donepezil HCl (Aricept) 23 mg QHS PO 08/24/20 21:00 08/28/20 15:38 DC 08/27/20 20:34 Fluoxetine HCl (PROzac) 20 mg DAILY PO 08/25/20 09:00 11/26/20 08:21 Lorazepam (Ativan) 1 mg PRN Q4HRS PRN PO ANXIETY / AGITATION 08/24/20 18:45 09/04/20 16:12 DC 09/04/20 01:29 Atorvastatin Calcium (Lipitor) 40 mg QHS PO 08/24/20 21:00 11/26/20 20:00 Pantoprazole Sodium (Protonix) 40 mg DAILY08 PO 08/25/20 08:00 11/26/20 08:21 Multivitamins/ Calcium (Thera-M Plus) 1 tab DAILY PO 08/25/20 09:00 11/26/20 08:20 Mupirocin (Bactroban) 1 césar BID92 TP 08/25/20 09:00 09/03/20 12:35 DC 09/01/20 14:00 Fish Oil (Fish Oil) 1,000 mg DAILY PO 08/25/20 09:00 11/08/20 18:17 DC 11/07/20 08:19 Olanzapine (ZyPREXA ZYDIS) 2.5 mg PRN Q2HR PRN PO PSYCHOSIS 08/24/20 19:45 11/16/20 12:58 Sertraline HCl (Zoloft) 25 mg DAILY PO 08/26/20 09:00 08/28/20 21:00 DC 08/28/20 08:37 Sertraline HCl (Zoloft) 50 mg DAILY PO 08/29/20 09:00 09/06/20 18:40 DC 09/04/20 08:58 Tamsulosin HCl (Flomax) 0.4 mg QHS PO 08/28/20 21:00 11/26/20 20:00 Mupirocin (Bactroban) 1 césar PRN BID PRN TP RASH 09/03/20 12:45 Diphenhydramine HCl (Benadryl) 50 mg 1X ONCE PO 09/04/20 21:00 09/04/20 21:01 DC 09/04/20 21:21 Olanzapine (ZyPREXA ZYDIS) 5 mg 1X ONCE PO 09/27/20 18:30 09/27/20 18:31 DC 09/27/20 18:30 Divalproex Sodium (Depakote Sprinkles) 125 mg 0900,1700 PO 09/28/20 17:00 10/12/20 17:08 DC 10/12/20 08:18 Furosemide (Lasix) 80 mg 1X ONCE PO 09/30/20 15:30 09/30/20 15:31 DC 09/30/20 16:00 Furosemide (Lasix) 80 mg DAILY PO 10/01/20 09:00 11/08/20 18:17 DC 11/08/20 08:39 Potassium Chloride (Klor-Con) 20 meq DAILYWBKFT PO 10/01/20 08:00 11/26/20 08:20 Trazodone HCl (Desyrel) 50 mg PRN QHS PRN PO INSOMNIA 10/08/20 16:15 11/07/20 18:18 DC 10/09/20 20:15 Divalproex Sodium (Depakote Sprinkles) 125 mg 0900,1300,1700,2100 PO 10/12/20 17:50 10/21/20 17:01 DC 10/21/20 12:26 Divalproex Sodium (Depakote Sprinkles) 125 mg 1300,1700 PO 10/21/20 17:00 10/25/20 17:17 DC 10/25/20 15:29 Divalproex Sodium (Depakote Sprinkles) 250 mg 0900,2100 PO 10/21/20 21:00 10/25/20 17:17 DC 10/25/20 09:09 Divalproex Sodium (Depakote Sprinkles) 250 mg QID PO 10/25/20 17:15 11/26/20 20:00 Trazodone HCl (Desyrel) 50 mg HS PO 11/07/20 21:00 11/26/20 20:00 Furosemide (Lasix) 40 mg DAILY PO 11/09/20 09:00 11/26/20 08:20 Multi-Ingred Cream/Lotion/Oil/ Oint (Hydrocerin) 1 césar PRN Q1HR PRN TP DRY SKIN / SCALING 11/26/20 16:30 I have reviewed the current psychotropics carefully including drug interactions. Risk benefit ratio favors no change other than as noted in my dictated progress note. Diagnosis: Problems: (1) Impulse control disorder, unspecified (2) Anxiety disorder, unspecified (3) Dementia, vascular, with depression (4) Dementia, vascular, with delusions (5) Dementia in Alzheimer's disease with depression (6) Dementia in Alzheimer's disease with delusions (7) Dementia of the Alzheimer's type with early onset with behavioral disturbance (8) Major neurocognitive disorder VERENA AGUSTIN MD Nov 26, 2020 22:32
[2020-11-27 06:19] VITALS: BP 108/60
[2020-11-27] MEDS: ASPIRIN CHEWABLE 81 MG TABLET. PO SCH (08:09)
[2020-11-27] MEDS: CETIRIZINE HCL 10 MG TABLET PO SCH (08:09)
[2020-11-27] MEDS: PANTOPRAZOLE 40 MG TABLET. PO SCH (08:09)
[2020-11-27] MEDS: DIVALPROEX 125 MG CAP.SPRINK PO SCH ×4 (08:10→20:17)
[2020-11-27] MEDS: POTASSIUM CHLORIDE 20 MEQ TABLET.ER. PO SCH (08:10)
[2020-11-27] MEDS: FUROSEMIDE 40 MG TABLET PO SCH (08:10)
[2020-11-27] MEDS: MULTIVITAMIN with MINERAL TABLET. PO SCH (08:10)
[2020-11-27 16:17] VITALS: BP 126/90
[2020-11-27] MEDS: ATORVASTATIN CALCIUM 20 MG TABLET PO SCH (20:16)
[2020-11-27] MEDS: traZODone 50 MG TABLET. PO SCH (20:17)
[2020-11-27] MEDS: TAMSULOSIN 0.4 MG CAP.ER.24H. PO SCH (20:17)
--- NOTE | 2020-11-27 21:40 | PDOC ---
Exam Note: Fercho Note: Please also refer to the separate dictated note~for this date of service dictated separately.~Patient seen individually. Discussed the patient with Nursing staff reviewed the chart.~Reviewed interim history and current functioning. Reviewed vital signs,~Labs/ Radiology~and current medications noted below. Continue current treatment with the changes noted in the dictated addendum note Assessment: Vital Signs/I&O: Vital Signs Date Time Temp Pulse Resp B/P (MAP) Pulse Ox O2 Delivery O2 Flow Rate FiO2 11/27/20 16:17 98.3 93 18 126/90 (102) 96 11/26/20 15:21 Room Air I & O 11/26/20 11/26/20 11/27/20 15:00 23:00 07:00 Intake Total 840 ml 740 ml Balance 840 ml 740 ml Current Medications: Meds: Current Medications Medications (Trade) Dose Ordered Sig/Ashvin Route PRN Reason Start Time Stop Time Status Last Admin Dose Admin Acetaminophen (Tylenol) 650 mg PRN Q6HRS PRN PO MILD PAIN / TEMP > 100.3'F 08/24/20 18:15 11/14/20 05:44 Multi-Ingredient Ointment (Analgesic [place]) 1 césar PRN QID PRN TP MUSCLE PAIN 08/24/20 18:15 Al Hydroxide/Mg Hydroxide (Mylanta Plus Xs) 15 ml PRN AFTMEALHC PRN PO DYSPEPSIA 08/24/20 18:15 Magnesium Hydroxide (Milk Of Magnesia) 2,400 mg PRN QHS PRN PO CONSTIPATION 08/24/20 18:15 11/10/20 16:58 Aspirin (Aspirin Chewable) 81 mg DAILY PO 08/25/20 09:00 11/27/20 08:09 Cetirizine HCl (ZyrTEC) 10 mg DAILY08 PO 08/25/20 08:00 11/27/20 08:09 Donepezil HCl (Aricept) 23 mg QHS PO 08/24/20 21:00 08/28/20 15:38 DC 08/27/20 20:34 Fluoxetine HCl (PROzac) 20 mg DAILY PO 08/25/20 09:00 11/27/20 08:10 Lorazepam (Ativan) 1 mg PRN Q4HRS PRN PO ANXIETY / AGITATION 08/24/20 18:45 09/04/20 16:12 DC 09/04/20 01:29 Atorvastatin Calcium (Lipitor) 40 mg QHS PO 08/24/20 21:00 11/27/20 20:16 Pantoprazole Sodium (Protonix) 40 mg DAILY08 PO 08/25/20 08:00 11/27/20 08:09 Multivitamins/ Calcium (Thera-M Plus) 1 tab DAILY PO 08/25/20 09:00 11/27/20 08:10 Mupirocin (Bactroban) 1 césar BID92 TP 08/25/20 09:00 09/03/20 12:35 DC 09/01/20 14:00 Fish Oil (Fish Oil) 1,000 mg DAILY PO 08/25/20 09:00 11/08/20 18:17 DC 11/07/20 08:19 Olanzapine (ZyPREXA ZYDIS) 2.5 mg PRN Q2HR PRN PO PSYCHOSIS 08/24/20 19:45 11/16/20 12:58 Sertraline HCl (Zoloft) 25 mg DAILY PO 08/26/20 09:00 08/28/20 21:00 DC 08/28/20 08:37 Sertraline HCl (Zoloft) 50 mg DAILY PO 08/29/20 09:00 09/06/20 18:40 DC 09/04/20 08:58 Tamsulosin HCl (Flomax) 0.4 mg QHS PO 08/28/20 21:00 11/27/20 20:17 Mupirocin (Bactroban) 1 césar PRN BID PRN TP RASH 09/03/20 12:45 Diphenhydramine HCl (Benadryl) 50 mg 1X ONCE PO 09/04/20 21:00 09/04/20 21:01 DC 09/04/20 21:21 Olanzapine (ZyPREXA ZYDIS) 5 mg 1X ONCE PO 09/27/20 18:30 09/27/20 18:31 DC 09/27/20 18:30 Divalproex Sodium (Depakote Sprinkles) 125 mg 0900,1700 PO 09/28/20 17:00 10/12/20 17:08 DC 10/12/20 08:18 Furosemide (Lasix) 80 mg 1X ONCE PO 09/30/20 15:30 09/30/20 15:31 DC 09/30/20 16:00 Furosemide (Lasix) 80 mg DAILY PO 10/01/20 09:00 11/08/20 18:17 DC 11/08/20 08:39 Potassium Chloride (Klor-Con) 20 meq DAILYWBKFT PO 10/01/20 08:00 11/27/20 08:10 Trazodone HCl (Desyrel) 50 mg PRN QHS PRN PO INSOMNIA 10/08/20 16:15 11/07/20 18:18 DC 10/09/20 20:15 Divalproex Sodium (Depakote Sprinkles) 125 mg 0900,1300,1700,2100 PO 10/12/20 17:50 10/21/20 17:01 DC 10/21/20 12:26 Divalproex Sodium (Depakote Sprinkles) 125 mg 1300,1700 PO 10/21/20 17:00 10/25/20 17:17 DC 10/25/20 15:29 Divalproex Sodium (Depakote Sprinkles) 250 mg 0900,2100 PO 10/21/20 21:00 10/25/20 17:17 DC 10/25/20 09:09 Divalproex Sodium (Depakote Sprinkles) 250 mg QID PO 10/25/20 17:15 11/27/20 20:17 Trazodone HCl (Desyrel) 50 mg HS PO 11/07/20 21:00 11/27/20 20:17 Furosemide (Lasix) 40 mg DAILY PO 11/09/20 09:00 11/27/20 08:10 Multi-Ingred Cream/Lotion/Oil/ Oint (Hydrocerin) 1 césar PRN Q1HR PRN TP DRY SKIN / SCALING 11/26/20 16:30 I have reviewed the current psychotropics carefully including drug interactions. Risk benefit ratio favors no change other than as noted in my dictated progress note. Diagnosis: Problems: (1) Impulse control disorder, unspecified (2) Anxiety disorder, unspecified (3) Dementia, vascular, with depression (4) Dementia, vascular, with delusions (5) Dementia in Alzheimer's disease with depression (6) Dementia in Alzheimer's disease with delusions (7) Dementia of the Alzheimer's type with early onset with behavioral disturbance (8) Major neurocognitive disorder VAMSI,MAN M MD Nov 27, 2020 21:40
[2020-11-28 05:58] VITALS: BP 130/78
--- NOTE | 2020-11-28 06:36 | PDOC ---
Exam Note: Fercho Note: This note is a late entry for 11/25/2020 covers elements not covered in my initial note. Subjective: The patient was seen face to face in the evening of 11/25/2020 with Frieda ABREU, discussed and reviewed the chart. He slept 8 hours previous night. He is compliant with medications. He remains confused, wandering the hallway, has got fairly close to one of the other male demented patients. He is pleasant, smiling as I met with him. Review of Systems: No CV, , pulmonary, eye, ENT system symptoms on review. Mental Status Exam: The patient is oriented to himself. Insight and judgment, recent and remote memory, attention and concentration, fund of knowledge is poor consistent with his diagnoses. Laboratory Data: Reviewed. Impression: Major neurocognitive disorder Alzheimer vascular with delusion, depression, behavioral disturbance. Anxiety disorder unspecified. Impulse control disorder unspecified. Plan: No change from initial note. Assessment: Vital Signs/I&O: Vital Signs Date Time Temp Pulse Resp B/P (MAP) Pulse Ox O2 Delivery O2 Flow Rate FiO2 11/28/20 05:58 97.4 62 18 130/78 (95) 96 11/26/20 15:21 Room Air I & O 11/27/20 11/27/20 11/28/20 15:00 23:00 07:00 Intake Total 1220 ml 480 ml Balance 1220 ml 480 ml Current Medications: Meds: Current Medications Medications (Trade) Dose Ordered Sig/Ashvin Route PRN Reason Start Time Stop Time Status Last Admin Dose Admin Acetaminophen (Tylenol) 650 mg PRN Q6HRS PRN PO MILD PAIN / TEMP > 100.3'F 08/24/20 18:15 11/14/20 05:44 Multi-Ingredient Ointment (Analgesic [place]) 1 césar PRN QID PRN TP MUSCLE PAIN 08/24/20 18:15 Al Hydroxide/Mg Hydroxide (Mylanta Plus Xs) 15 ml PRN AFTMEALHC PRN PO DYSPEPSIA 08/24/20 18:15 Magnesium Hydroxide (Milk Of Magnesia) 2,400 mg PRN QHS PRN PO CONSTIPATION 08/24/20 18:15 11/10/20 16:58 Aspirin (Aspirin Chewable) 81 mg DAILY PO 08/25/20 09:00 11/27/20 08:09 Cetirizine HCl (ZyrTEC) 10 mg DAILY08 PO 08/25/20 08:00 11/27/20 08:09 Donepezil HCl (Aricept) 23 mg QHS PO 08/24/20 21:00 08/28/20 15:38 DC 08/27/20 20:34 Fluoxetine HCl (PROzac) 20 mg DAILY PO 08/25/20 09:00 11/27/20 08:10 Lorazepam (Ativan) 1 mg PRN Q4HRS PRN PO ANXIETY / AGITATION 08/24/20 18:45 09/04/20 16:12 DC 09/04/20 01:29 Atorvastatin Calcium (Lipitor) 40 mg QHS PO 08/24/20 21:00 11/27/20 20:16 Pantoprazole Sodium (Protonix) 40 mg DAILY08 PO 08/25/20 08:00 11/27/20 08:09 Multivitamins/ Calcium (Thera-M Plus) 1 tab DAILY PO 08/25/20 09:00 11/27/20 08:10 Mupirocin (Bactroban) 1 césar BID92 TP 08/25/20 09:00 09/03/20 12:35 DC 09/01/20 14:00 Fish Oil (Fish Oil) 1,000 mg DAILY PO 08/25/20 09:00 11/08/20 18:17 DC 11/07/20 08:19 Olanzapine (ZyPREXA ZYDIS) 2.5 mg PRN Q2HR PRN PO PSYCHOSIS 08/24/20 19:45 11/16/20 12:58 Sertraline HCl (Zoloft) 25 mg DAILY PO 08/26/20 09:00 08/28/20 21:00 DC 08/28/20 08:37 Sertraline HCl (Zoloft) 50 mg DAILY PO 08/29/20 09:00 09/06/20 18:40 DC 09/04/20 08:58 Tamsulosin HCl (Flomax) 0.4 mg QHS PO 08/28/20 21:00 11/27/20 20:17 Mupirocin (Bactroban) 1 césar PRN BID PRN TP RASH 09/03/20 12:45 Diphenhydramine HCl (Benadryl) 50 mg 1X ONCE PO 09/04/20 21:00 09/04/20 21:01 DC 09/04/20 21:21 Olanzapine (ZyPREXA ZYDIS) 5 mg 1X ONCE PO 09/27/20 18:30 09/27/20 18:31 DC 09/27/20 18:30 Divalproex Sodium (Depakote Sprinkles) 125 mg 0900,1700 PO 09/28/20 17:00 10/12/20 17:08 DC 10/12/20 08:18 Furosemide (Lasix) 80 mg 1X ONCE PO 09/30/20 15:30 09/30/20 15:31 DC 09/30/20 16:00 Furosemide (Lasix) 80 mg DAILY PO 10/01/20 09:00 11/08/20 18:17 DC 11/08/20 08:39 Potassium Chloride (Klor-Con) 20 meq DAILYWBKFT PO 10/01/20 08:00 11/27/20 08:10 Trazodone HCl (Desyrel) 50 mg PRN QHS PRN PO INSOMNIA 10/08/20 16:15 11/07/20 18:18 DC 10/09/20 20:15 Divalproex Sodium (Depakote Sprinkles) 125 mg 0900,1300,1700,2100 PO 10/12/20 17:50 10/21/20 17:01 DC 10/21/20 12:26 Divalproex Sodium (Depakote Sprinkles) 125 mg 1300,1700 PO 10/21/20 17:00 10/25/20 17:17 DC 10/25/20 15:29 Divalproex Sodium (Depakote Sprinkles) 250 mg 0900,2100 PO 10/21/20 21:00 10/25/20 17:17 DC 10/25/20 09:09 Divalproex Sodium (Depakote Sprinkles) 250 mg QID PO 10/25/20 17:15 11/27/20 20:17 Trazodone HCl (Desyrel) 50 mg HS PO 11/07/20 21:00 11/27/20 20:17 Furosemide (Lasix) 40 mg DAILY PO 11/09/20 09:00 11/27/20 08:10 Multi-Ingred Cream/Lotion/Oil/ Oint (Hydrocerin) 1 césar PRN Q1HR PRN TP DRY SKIN / SCALING 11/26/20 16:30 I have reviewed the current psychotropics carefully including drug interactions. Risk benefit ratio favors no change other than as noted in my dictated progress note. Diagnosis: Problems: (1) Impulse control disorder, unspecified (2) Anxiety disorder, unspecified (3) Dementia, vascular, with depression (4) Dementia, vascular, with delusions (5) Dementia in Alzheimer's disease with depression (6) Dementia in Alzheimer's disease with delusions (7) Dementia of the Alzheimer's type with early onset with behavioral disturbance (8) Major neurocognitive disorder VERENA AGUSTIN MD Nov 28, 2020 06:36
--- NOTE | 2020-11-28 06:55 | PDOC ---
Exam Note: Fercho Note: This note is a late entry for 11/26/2020 covers elements not covered in my initial note. Subjective: The patient was seen face to face in the evening of 11/26/2020 with Spring ABREU, discussed and reviewed the chart. He slept 8 hours previous night. He has been confused, but fairly cooperative. Review of Systems: No CV, , pulmonary, eye, ENT system symptoms on review. Mental Status Exam: The patient is oriented to himself. Insight and judgment, recent and remote memory, attention and concentration, fund of knowledge is poor consistent with his diagnoses. Laboratory Data: Reviewed. Impression: Major neurocognitive disorder Alzheimer vascular with delusion, depression, behavioral disturbance. Anxiety disorder unspecified. Impulse control disorder unspecified. Plan: No change from initial note. Assessment: Vital Signs/I&O: Vital Signs Date Time Temp Pulse Resp B/P (MAP) Pulse Ox O2 Delivery O2 Flow Rate FiO2 11/28/20 05:58 97.4 62 18 130/78 (95) 96 11/26/20 15:21 Room Air I & O 11/27/20 11/27/20 11/28/20 15:00 23:00 07:00 Intake Total 1220 ml 480 ml Balance 1220 ml 480 ml Current Medications: Meds: Current Medications Medications (Trade) Dose Ordered Sig/Ashvin Route PRN Reason Start Time Stop Time Status Last Admin Dose Admin Acetaminophen (Tylenol) 650 mg PRN Q6HRS PRN PO MILD PAIN / TEMP > 100.3'F 08/24/20 18:15 11/14/20 05:44 Multi-Ingredient Ointment (Analgesic [place]) 1 césar PRN QID PRN TP MUSCLE PAIN 08/24/20 18:15 Al Hydroxide/Mg Hydroxide (Mylanta Plus Xs) 15 ml PRN AFTMEALHC PRN PO DYSPEPSIA 08/24/20 18:15 Magnesium Hydroxide (Milk Of Magnesia) 2,400 mg PRN QHS PRN PO CONSTIPATION 08/24/20 18:15 11/10/20 16:58 Aspirin (Aspirin Chewable) 81 mg DAILY PO 08/25/20 09:00 11/27/20 08:09 Cetirizine HCl (ZyrTEC) 10 mg DAILY08 PO 08/25/20 08:00 11/27/20 08:09 Donepezil HCl (Aricept) 23 mg QHS PO 08/24/20 21:00 08/28/20 15:38 DC 08/27/20 20:34 Fluoxetine HCl (PROzac) 20 mg DAILY PO 08/25/20 09:00 11/27/20 08:10 Lorazepam (Ativan) 1 mg PRN Q4HRS PRN PO ANXIETY / AGITATION 08/24/20 18:45 09/04/20 16:12 DC 09/04/20 01:29 Atorvastatin Calcium (Lipitor) 40 mg QHS PO 08/24/20 21:00 11/27/20 20:16 Pantoprazole Sodium (Protonix) 40 mg DAILY08 PO 08/25/20 08:00 11/27/20 08:09 Multivitamins/ Calcium (Thera-M Plus) 1 tab DAILY PO 08/25/20 09:00 11/27/20 08:10 Mupirocin (Bactroban) 1 césar BID92 TP 08/25/20 09:00 09/03/20 12:35 DC 09/01/20 14:00 Fish Oil (Fish Oil) 1,000 mg DAILY PO 08/25/20 09:00 11/08/20 18:17 DC 11/07/20 08:19 Olanzapine (ZyPREXA ZYDIS) 2.5 mg PRN Q2HR PRN PO PSYCHOSIS 08/24/20 19:45 11/16/20 12:58 Sertraline HCl (Zoloft) 25 mg DAILY PO 08/26/20 09:00 08/28/20 21:00 DC 08/28/20 08:37 Sertraline HCl (Zoloft) 50 mg DAILY PO 08/29/20 09:00 09/06/20 18:40 DC 09/04/20 08:58 Tamsulosin HCl (Flomax) 0.4 mg QHS PO 08/28/20 21:00 11/27/20 20:17 Mupirocin (Bactroban) 1 césar PRN BID PRN TP RASH 09/03/20 12:45 Diphenhydramine HCl (Benadryl) 50 mg 1X ONCE PO 09/04/20 21:00 09/04/20 21:01 DC 09/04/20 21:21 Olanzapine (ZyPREXA ZYDIS) 5 mg 1X ONCE PO 09/27/20 18:30 09/27/20 18:31 DC 09/27/20 18:30 Divalproex Sodium (Depakote Sprinkles) 125 mg 0900,1700 PO 09/28/20 17:00 10/12/20 17:08 DC 10/12/20 08:18 Furosemide (Lasix) 80 mg 1X ONCE PO 09/30/20 15:30 09/30/20 15:31 DC 09/30/20 16:00 Furosemide (Lasix) 80 mg DAILY PO 10/01/20 09:00 11/08/20 18:17 DC 11/08/20 08:39 Potassium Chloride (Klor-Con) 20 meq DAILYWBKFT PO 10/01/20 08:00 11/27/20 08:10 Trazodone HCl (Desyrel) 50 mg PRN QHS PRN PO INSOMNIA 10/08/20 16:15 11/07/20 18:18 DC 10/09/20 20:15 Divalproex Sodium (Depakote Sprinkles) 125 mg 0900,1300,1700,2100 PO 10/12/20 17:50 10/21/20 17:01 DC 10/21/20 12:26 Divalproex Sodium (Depakote Sprinkles) 125 mg 1300,1700 PO 10/21/20 17:00 10/25/20 17:17 DC 10/25/20 15:29 Divalproex Sodium (Depakote Sprinkles) 250 mg 0900,2100 PO 10/21/20 21:00 10/25/20 17:17 DC 10/25/20 09:09 Divalproex Sodium (Depakote Sprinkles) 250 mg QID PO 10/25/20 17:15 11/27/20 20:17 Trazodone HCl (Desyrel) 50 mg HS PO 11/07/20 21:00 11/27/20 20:17 Furosemide (Lasix) 40 mg DAILY PO 11/09/20 09:00 11/27/20 08:10 Multi-Ingred Cream/Lotion/Oil/ Oint (Hydrocerin) 1 césar PRN Q1HR PRN TP DRY SKIN / SCALING 11/26/20 16:30 I have reviewed the current psychotropics carefully including drug interactions. Risk benefit ratio favors no change other than as noted in my dictated progress note. Diagnosis: Problems: (1) Impulse control disorder, unspecified (2) Anxiety disorder, unspecified (3) Dementia, vascular, with depression (4) Dementia, vascular, with delusions (5) Dementia in Alzheimer's disease with depression (6) Dementia in Alzheimer's disease with delusions (7) Dementia of the Alzheimer's type with early onset with behavioral disturbance (8) Major neurocognitive disorder VERENA AGUSTIN MD Nov 28, 2020 06:55
--- NOTE | 2020-11-28 07:04 | PDOC ---
Exam Note: Fercho Note: This note is a late entry for 11/27/2020 covers elements not covered in my initial note. Subjective: The patient was seen face to face in the evening of 11/27/2020 with Mera ABREU, discussed and reviewed the chart. He slept 7-1/4 hours previous night. He has not been aggressive or disruptive, remains confused. Review of Systems: Impaired ambulation in wheelchair. No CV, , pulmonary, eye, ENT system symptoms on review. Mental Status Exam: The patient is awake, alert, oriented to himself and situation. Speech is coherent. No suicidal or homicidal ideation. Mood and affect are improved. Laboratory Data: Reviewed. Impression: Major neurocognitive disorder Alzheimer vascular with delusion, depression, behavioral disturbance. Anxiety disorder unspecified. Impulse control disorder unspecified. Plan: No change from initial note. Assessment: Vital Signs/I&O: Vital Signs Date Time Temp Pulse Resp B/P (MAP) Pulse Ox O2 Delivery O2 Flow Rate FiO2 11/28/20 05:58 97.4 62 18 130/78 (95) 96 11/26/20 15:21 Room Air I & O 11/27/20 11/27/20 11/28/20 15:00 23:00 07:00 Intake Total 1220 ml 480 ml Balance 1220 ml 480 ml Current Medications: Meds: Current Medications Medications (Trade) Dose Ordered Sig/[place] Route PRN Reason Start Time Stop Time Status Last Admin Dose Admin Acetaminophen (Tylenol) 650 mg PRN Q6HRS PRN PO MILD PAIN / TEMP > 100.3'F 08/24/20 18:15 11/14/20 05:44 Multi-Ingredient Ointment (Analgesic [place]) 1 césar PRN QID PRN TP MUSCLE PAIN 08/24/20 18:15 Al Hydroxide/Mg Hydroxide (Mylanta Plus Xs) 15 ml PRN AFTMEALHC PRN PO DYSPEPSIA 08/24/20 18:15 Magnesium Hydroxide (Milk Of Magnesia) 2,400 mg PRN QHS PRN PO CONSTIPATION 08/24/20 18:15 11/10/20 16:58 Aspirin (Aspirin Chewable) 81 mg DAILY PO 08/25/20 09:00 11/27/20 08:09 Cetirizine HCl (ZyrTEC) 10 mg DAILY08 PO 08/25/20 08:00 8/8/21 08:09 Donepezil HCl (Aricept) 23 mg QHS PO 08/24/20 21:00 08/28/20 15:38 DC 08/27/20 20:34 Fluoxetine HCl (PROzac) 20 mg DAILY PO 08/25/20 09:00 11/27/20 08:10 Lorazepam (Ativan) 1 mg PRN Q4HRS PRN PO ANXIETY / AGITATION 08/24/20 18:45 09/04/20 16:12 DC 09/04/20 01:29 Atorvastatin Calcium (Lipitor) 40 mg QHS PO 08/24/20 21:00 11/27/20 20:16 Pantoprazole Sodium (Protonix) 40 mg DAILY08 PO 08/25/20 08:00 11/27/20 08:09 Multivitamins/ Calcium (Thera-M Plus) 1 tab DAILY PO 08/25/20 09:00 11/27/20 08:10 Mupirocin (Bactroban) 1 césar BID92 TP 08/25/20 09:00 09/03/20 12:35 DC 09/01/20 14:00 Fish Oil (Fish Oil) 1,000 mg DAILY PO 08/25/20 09:00 11/08/20 18:17 DC 11/07/20 08:19 Olanzapine (ZyPREXA ZYDIS) 2.5 mg PRN Q2HR PRN PO PSYCHOSIS 08/24/20 19:45 11/16/20 12:58 Sertraline HCl (Zoloft) 25 mg DAILY PO 08/26/20 09:00 08/28/20 21:00 DC 08/28/20 08:37 Sertraline HCl (Zoloft) 50 mg DAILY PO 08/29/20 09:00 09/06/20 18:40 DC 09/04/20 08:58 Tamsulosin HCl (Flomax) 0.4 mg QHS PO 08/28/20 21:00 11/27/20 20:17 Mupirocin (Bactroban) 1 césar PRN BID PRN TP RASH 09/03/20 12:45 Diphenhydramine HCl (Benadryl) 50 mg 1X ONCE PO 09/04/20 21:00 09/04/20 21:01 DC 09/04/20 21:21 Olanzapine (ZyPREXA ZYDIS) 5 mg 1X ONCE PO 09/27/20 18:30 09/27/20 18:31 DC 09/27/20 18:30 Divalproex Sodium (Depakote Sprinkles) 125 mg 0900,1700 PO 09/28/20 17:00 10/12/20 17:08 DC 10/12/20 08:18 Furosemide (Lasix) 80 mg 1X ONCE PO 09/30/20 15:30 09/30/20 15:31 DC 09/30/20 16:00 Furosemide (Lasix) 80 mg DAILY PO 10/01/20 09:00 11/08/20 18:17 DC 11/08/20 08:39 Potassium Chloride (Klor-Con) 20 meq DAILYWBKFT PO 10/01/20 08:00 11/27/20 08:10 Trazodone HCl (Desyrel) 50 mg PRN QHS PRN PO INSOMNIA 10/08/20 16:15 11/07/20 18:18 DC 10/09/20 20:15 Divalproex Sodium (Depakote Sprinkles) 125 mg 0900,1300,1700,2100 PO 10/12/20 17:50 10/21/20 17:01 DC 10/21/20 12:26 Divalproex Sodium (Depakote Sprinkles) 125 mg 1300,1700 PO 10/21/20 17:00 10/25/20 17:17 DC 10/25/20 15:29 Divalproex Sodium (Depakote Sprinkles) 250 mg 0900,2100 PO 10/21/20 21:00 10/25/20 17:17 DC 10/25/20 09:09 Divalproex Sodium (Depakote Sprinkles) 250 mg QID PO 10/25/20 17:15 11/27/20 20:17 Trazodone HCl (Desyrel) 50 mg HS PO 11/07/20 21:00 11/27/20 20:17 Furosemide (Lasix) 40 mg DAILY PO 11/09/20 09:00 11/27/20 08:10 Multi-Ingred Cream/Lotion/Oil/ Oint (Hydrocerin) 1 césar PRN Q1HR PRN TP DRY SKIN / SCALING 11/26/20 16:30 I have reviewed the current psychotropics carefully including drug interactions. Risk benefit ratio favors no change other than as noted in my dictated progress note. Diagnosis: Problems: (1) Impulse control disorder, unspecified (2) Anxiety disorder, unspecified (3) Dementia, vascular, with depression (4) Dementia, vascular, with delusions (5) Dementia in Alzheimer's disease with depression (6) Dementia in Alzheimer's disease with delusions (7) Dementia of the Alzheimer's type with early onset with behavioral disturbance (8) Major neurocognitive disorder VERENA AGUSTIN MD Nov 28, 2020 07:04
[2020-11-28] MEDS: MULTIVITAMIN with MINERAL TABLET. PO SCH (08:30)
[2020-11-28] MEDS: ASPIRIN CHEWABLE 81 MG TABLET. PO SCH (08:30)
[2020-11-28] MEDS: CETIRIZINE HCL 10 MG TABLET PO SCH (08:30)
[2020-11-28] MEDS: DIVALPROEX 125 MG CAP.SPRINK PO SCH ×4 (08:30→19:58)
[2020-11-28] MEDS: PANTOPRAZOLE 40 MG TABLET. PO SCH (08:30)
[2020-11-28] MEDS: POTASSIUM CHLORIDE 20 MEQ TABLET.ER. PO SCH (08:30)
[2020-11-28] MEDS: FUROSEMIDE 40 MG TABLET PO SCH (08:31)
[2020-11-28 16:07] VITALS: BP 127/80
[2020-11-28] MEDS: traZODone 50 MG TABLET. PO SCH (19:58)
[2020-11-28] MEDS: ATORVASTATIN CALCIUM 20 MG TABLET PO SCH (19:58)
[2020-11-28] MEDS: TAMSULOSIN 0.4 MG CAP.ER.24H. PO SCH (19:58)
--- NOTE | 2020-11-28 21:55 | PDOC ---
Exam Note: Fercho Note: Please also refer to the separate dictated note~for this date of service dictated separately.~Patient seen individually. Discussed the patient with Nursing staff reviewed the chart.~Reviewed interim history and current functioning. Reviewed vital signs,~Labs/ Radiology~and current medications noted below. Continue current treatment with the changes noted in the dictated addendum note Assessment: Vital Signs/I&O: Vital Signs Date Time Temp Pulse Resp B/P (MAP) Pulse Ox O2 Delivery O2 Flow Rate FiO2 11/28/20 16:07 97.9 78 16 127/80 (96) 99 11/26/20 15:21 Room Air I & O 11/27/20 11/27/20 11/28/20 15:00 23:00 07:00 Intake Total 1220 ml 480 ml Balance 1220 ml 480 ml Current Medications: Meds: Current Medications Medications (Trade) Dose Ordered Sig/Ashvin Route PRN Reason Start Time Stop Time Status Last Admin Dose Admin Acetaminophen (Tylenol) 650 mg PRN Q6HRS PRN PO MILD PAIN / TEMP > 100.3'F 08/24/20 18:15 11/14/20 05:44 Multi-Ingredient Ointment (Analgesic [place]) 1 césar PRN QID PRN TP MUSCLE PAIN 08/24/20 18:15 Al Hydroxide/Mg Hydroxide (Mylanta Plus Xs) 15 ml PRN AFTMEALHC PRN PO DYSPEPSIA 08/24/20 18:15 Magnesium Hydroxide (Milk Of Magnesia) 2,400 mg PRN QHS PRN PO CONSTIPATION 08/24/20 18:15 11/10/20 16:58 Aspirin (Aspirin Chewable) 81 mg DAILY PO 08/25/20 09:00 11/28/20 08:30 Cetirizine HCl (ZyrTEC) 10 mg DAILY08 PO 08/25/20 08:00 11/28/20 08:30 Donepezil HCl (Aricept) 23 mg QHS PO 08/24/20 21:00 08/28/20 15:38 DC 08/27/20 20:34 Fluoxetine HCl (PROzac) 20 mg DAILY PO 08/25/20 09:00 11/28/20 08:30 Lorazepam (Ativan) 1 mg PRN Q4HRS PRN PO ANXIETY / AGITATION 08/24/20 18:45 09/04/20 16:12 DC 09/04/20 01:29 Atorvastatin Calcium (Lipitor) 40 mg QHS PO 08/24/20 21:00 11/28/20 19:58 Pantoprazole Sodium (Protonix) 40 mg DAILY08 PO 08/25/20 08:00 11/28/20 08:30 Multivitamins/ Calcium (Thera-M Plus) 1 tab DAILY PO 08/25/20 09:00 11/28/20 08:30 Mupirocin (Bactroban) 1 césar BID92 TP 08/25/20 09:00 09/03/20 12:35 DC 09/01/20 14:00 Fish Oil (Fish Oil) 1,000 mg DAILY PO 08/25/20 09:00 11/08/20 18:17 DC 11/07/20 08:19 Olanzapine (ZyPREXA ZYDIS) 2.5 mg PRN Q2HR PRN PO PSYCHOSIS 08/24/20 19:45 11/16/20 12:58 Sertraline HCl (Zoloft) 25 mg DAILY PO 08/26/20 09:00 08/28/20 21:00 DC 08/28/20 08:37 Sertraline HCl (Zoloft) 50 mg DAILY PO 08/29/20 09:00 09/06/20 18:40 DC 09/04/20 08:58 Tamsulosin HCl (Flomax) 0.4 mg QHS PO 08/28/20 21:00 11/28/20 19:58 Mupirocin (Bactroban) 1 césar PRN BID PRN TP RASH 09/03/20 12:45 Diphenhydramine HCl (Benadryl) 50 mg 1X ONCE PO 09/04/20 21:00 09/04/20 21:01 DC 09/04/20 21:21 Olanzapine (ZyPREXA ZYDIS) 5 mg 1X ONCE PO 09/27/20 18:30 09/27/20 18:31 DC 09/27/20 18:30 Divalproex Sodium (Depakote Sprinkles) 125 mg 0900,1700 PO 09/28/20 17:00 10/12/20 17:08 DC 10/12/20 08:18 Furosemide (Lasix) 80 mg 1X ONCE PO 09/30/20 15:30 09/30/20 15:31 DC 09/30/20 16:00 Furosemide (Lasix) 80 mg DAILY PO 10/01/20 09:00 11/08/20 18:17 DC 11/08/20 08:39 Potassium Chloride (Klor-Con) 20 meq DAILYWBKFT PO 10/01/20 08:00 11/28/20 08:30 Trazodone HCl (Desyrel) 50 mg PRN QHS PRN PO INSOMNIA 10/08/20 16:15 11/07/20 18:18 DC 10/09/20 20:15 Divalproex Sodium (Depakote Sprinkles) 125 mg 0900,1300,1700,2100 PO 10/12/20 17:50 10/21/20 17:01 DC 10/21/20 12:26 Divalproex Sodium (Depakote Sprinkles) 125 mg 1300,1700 PO 10/21/20 17:00 10/25/20 17:17 DC 10/25/20 15:29 Divalproex Sodium (Depakote Sprinkles) 250 mg 0900,2100 PO 10/21/20 21:00 10/25/20 17:17 DC 10/25/20 09:09 Divalproex Sodium (Depakote Sprinkles) 250 mg QID PO 10/25/20 17:15 11/28/20 19:58 Trazodone HCl (Desyrel) 50 mg HS PO 11/07/20 21:00 11/28/20 19:58 Furosemide (Lasix) 40 mg DAILY PO 11/09/20 09:00 11/28/20 08:31 Multi-Ingred Cream/Lotion/Oil/ Oint (Hydrocerin) 1 césar PRN Q1HR PRN TP DRY SKIN / SCALING 11/26/20 16:30 I have reviewed the current psychotropics carefully including drug interactions. Risk benefit ratio favors no change other than as noted in my dictated progress note. Diagnosis: Problems: (1) Impulse control disorder, unspecified (2) Anxiety disorder, unspecified (3) Dementia, vascular, with depression (4) Dementia, vascular, with delusions (5) Dementia in Alzheimer's disease with depression (6) Dementia in Alzheimer's disease with delusions (7) Dementia of the Alzheimer's type with early onset with behavioral disturbance (8) Major neurocognitive disorder VAMSI,MAN M MD Nov 28, 2020 21:55
[2020-11-29 06:03] VITALS: BP 102/59
[2020-11-29] MEDS: FUROSEMIDE 40 MG TABLET PO SCH (09:10)
[2020-11-29] MEDS: ASPIRIN CHEWABLE 81 MG TABLET. PO SCH (09:11)
[2020-11-29] MEDS: MULTIVITAMIN with MINERAL TABLET. PO SCH (09:11)
[2020-11-29] MEDS: PANTOPRAZOLE 40 MG TABLET. PO SCH (09:11)
[2020-11-29] MEDS: POTASSIUM CHLORIDE 20 MEQ TABLET.ER. PO SCH (09:11)
[2020-11-29] MEDS: CETIRIZINE HCL 10 MG TABLET PO SCH (09:12)
[2020-11-29] MEDS: DIVALPROEX 125 MG CAP.SPRINK PO SCH ×4 (09:12→20:46)
[2020-11-29 15:39] VITALS: BP 105/65
[2020-11-29] MEDS: TAMSULOSIN 0.4 MG CAP.ER.24H. PO SCH (20:46)
[2020-11-29] MEDS: ATORVASTATIN CALCIUM 20 MG TABLET PO SCH (20:46)
[2020-11-29] MEDS: traZODone 50 MG TABLET. PO SCH (20:46)
--- NOTE | 2020-11-29 21:47 | PDOC ---
Exam Note: Fercho Note: Please also refer to the separate dictated note~for this date of service dictated separately.~Patient seen individually. Discussed the patient with Nursing staff reviewed the chart.~Reviewed interim history and current functioning. Reviewed vital signs,~Labs/ Radiology~and current medications noted below. Continue current treatment with the changes noted in the dictated addendum note Assessment: Vital Signs/I&O: Vital Signs Date Time Temp Pulse Resp B/P (MAP) Pulse Ox O2 Delivery O2 Flow Rate FiO2 11/29/20 15:39 97.6 75 16 105/65 (78) 94 11/26/20 15:21 Room Air I & O 11/28/20 11/28/20 11/29/20 15:00 23:00 07:00 Intake Total 840 ml 360 ml Balance 840 ml 360 ml Current Medications: Meds: Current Medications Medications (Trade) Dose Ordered Sig/Ashvin Route PRN Reason Start Time Stop Time Status Last Admin Dose Admin Acetaminophen (Tylenol) 650 mg PRN Q6HRS PRN PO MILD PAIN / TEMP > 100.3'F 08/24/20 18:15 11/14/20 05:44 Multi-Ingredient Ointment (Analgesic [place]) 1 césar PRN QID PRN TP MUSCLE PAIN 08/24/20 18:15 Al Hydroxide/Mg Hydroxide (Mylanta Plus Xs) 15 ml PRN AFTMEALHC PRN PO DYSPEPSIA 08/24/20 18:15 Magnesium Hydroxide (Milk Of Magnesia) 2,400 mg PRN QHS PRN PO CONSTIPATION 08/24/20 18:15 11/10/20 16:58 Aspirin (Aspirin Chewable) 81 mg DAILY PO 08/25/20 09:00 11/29/20 09:11 Cetirizine HCl (ZyrTEC) 10 mg DAILY08 PO 08/25/20 08:00 11/29/20 09:12 Donepezil HCl (Aricept) 23 mg QHS PO 08/24/20 21:00 08/28/20 15:38 DC 08/27/20 20:34 Fluoxetine HCl (PROzac) 20 mg DAILY PO 08/25/20 09:00 11/29/20 09:11 Lorazepam (Ativan) 1 mg PRN Q4HRS PRN PO ANXIETY / AGITATION 08/24/20 18:45 09/04/20 16:12 DC 09/04/20 01:29 Atorvastatin Calcium (Lipitor) 40 mg QHS PO 08/24/20 21:00 11/29/20 20:46 Pantoprazole Sodium (Protonix) 40 mg DAILY08 PO 08/25/20 08:00 11/29/20 09:11 Multivitamins/ Calcium (Thera-M Plus) 1 tab DAILY PO 08/25/20 09:00 11/29/20 09:11 Mupirocin (Bactroban) 1 césar BID92 TP 08/25/20 09:00 09/03/20 12:35 DC 09/01/20 14:00 Fish Oil (Fish Oil) 1,000 mg DAILY PO 08/25/20 09:00 11/08/20 18:17 DC 11/07/20 08:19 Olanzapine (ZyPREXA ZYDIS) 2.5 mg PRN Q2HR PRN PO PSYCHOSIS 08/24/20 19:45 11/16/20 12:58 Sertraline HCl (Zoloft) 25 mg DAILY PO 08/26/20 09:00 08/28/20 21:00 DC 08/28/20 08:37 Sertraline HCl (Zoloft) 50 mg DAILY PO 08/29/20 09:00 09/06/20 18:40 DC 09/04/20 08:58 Tamsulosin HCl (Flomax) 0.4 mg QHS PO 08/28/20 21:00 11/29/20 20:46 Mupirocin (Bactroban) 1 césar PRN BID PRN TP RASH 09/03/20 12:45 Diphenhydramine HCl (Benadryl) 50 mg 1X ONCE PO 09/04/20 21:00 09/04/20 21:01 DC 09/04/20 21:21 Olanzapine (ZyPREXA ZYDIS) 5 mg 1X ONCE PO 09/27/20 18:30 09/27/20 18:31 DC 09/27/20 18:30 Divalproex Sodium (Depakote Sprinkles) 125 mg 0900,1700 PO 09/28/20 17:00 10/12/20 17:08 DC 10/12/20 08:18 Furosemide (Lasix) 80 mg 1X ONCE PO 09/30/20 15:30 09/30/20 15:31 DC 09/30/20 16:00 Furosemide (Lasix) 80 mg DAILY PO 10/01/20 09:00 11/08/20 18:17 DC 11/08/20 08:39 Potassium Chloride (Klor-Con) 20 meq DAILYWBKFT PO 10/01/20 08:00 11/29/20 09:11 Trazodone HCl (Desyrel) 50 mg PRN QHS PRN PO INSOMNIA 10/08/20 16:15 11/07/20 18:18 DC 10/09/20 20:15 Divalproex Sodium (Depakote Sprinkles) 125 mg 0900,1300,1700,2100 PO 10/12/20 17:50 10/21/20 17:01 DC 10/21/20 12:26 Divalproex Sodium (Depakote Sprinkles) 125 mg 1300,1700 PO 10/21/20 17:00 10/25/20 17:17 DC 10/25/20 15:29 Divalproex Sodium (Depakote Sprinkles) 250 mg 0900,2100 PO 10/21/20 21:00 10/25/20 17:17 DC 10/25/20 09:09 Divalproex Sodium (Depakote Sprinkles) 250 mg QID PO 10/25/20 17:15 11/29/20 20:46 Trazodone HCl (Desyrel) 50 mg HS PO 11/07/20 21:00 11/29/20 20:46 Furosemide (Lasix) 40 mg DAILY PO 11/09/20 09:00 11/29/20 09:10 Multi-Ingred Cream/Lotion/Oil/ Oint (Hydrocerin) 1 césar PRN Q1HR PRN TP DRY SKIN / SCALING 11/26/20 16:30 I have reviewed the current psychotropics carefully including drug interactions. Risk benefit ratio favors no change other than as noted in my dictated progress note. Diagnosis: Problems: (1) Impulse control disorder, unspecified (2) Anxiety disorder, unspecified (3) Dementia, vascular, with depression (4) Dementia, vascular, with delusions (5) Dementia in Alzheimer's disease with depression (6) Dementia in Alzheimer's disease with delusions (7) Dementia of the Alzheimer's type with early onset with behavioral disturbance (8) Major neurocognitive disorder VAMSI,MAN M MD Nov 29, 2020 21:47
[2020-11-30 06:10] VITALS: BP 118/70
--- NOTE | 2020-11-30 06:11 | PDOC ---
Exam Note: Fercho Note: This note is a late entry for 11/28/2020 covers elements not covered in my initial note. Subjective: The patient was seen face to face in the evening of 11/28/2020 with Flower ABREU, discussed and reviewed the chart. He slept 7-3/4 hours previous night. He remains confused. Review of Systems: Impaired ambulation in wheelchair. No CV, , pulmonary, eye, ENT system symptoms on review. Mental Status Exam: The patient oriented to himself and situation. I met with him in his room. He was lying in bed but did awaken. He was not very interactive but continues to have a pleasant smile. He does respond to his name. Speech is coherent. Abstraction fair. Computation impaired. Language function intact. No suicidal or homicidal ideation. Mood and affect are improved. Laboratory Data: Reviewed. Impression: Major neurocognitive disorder Alzheimer vascular with delusion, depression, behavioral disturbance. Anxiety disorder unspecified. Impulse control disorder unspecified. Plan: No change from initial note. Assessment: Vital Signs/I&O: Vital Signs Date Time Temp Pulse Resp B/P (MAP) Pulse Ox O2 Delivery O2 Flow Rate FiO2 11/29/20 15:39 97.6 75 16 105/65 (78) 94 11/26/20 15:21 Room Air I & O 11/29/20 11/29/20 11/30/20 15:00 23:00 07:00 Intake Total 720 ml 360 ml Balance 720 ml 360 ml Current Medications: Meds: Current Medications Medications (Trade) Dose Ordered Sig/Ashvin Route PRN Reason Start Time Stop Time Status Last Admin Dose Admin Acetaminophen (Tylenol) 650 mg PRN Q6HRS PRN PO MILD PAIN / TEMP > 100.3'F 08/24/20 18:15 11/14/20 05:44 Multi-Ingredient Ointment (Analgesic [place]) 1 césar PRN QID PRN TP MUSCLE PAIN 08/24/20 18:15 Al Hydroxide/Mg Hydroxide (Mylanta Plus Xs) 15 ml PRN AFTMEALHC PRN PO DYSPEPSIA 08/24/20 18:15 Magnesium Hydroxide (Milk Of Magnesia) 2,400 mg PRN QHS PRN PO CONSTIPATION 08/24/20 18:15 11/10/20 16:58 Aspirin (Aspirin Chewable) 81 mg DAILY PO 08/25/20 09:00 11/29/20 09:11 Cetirizine HCl (ZyrTEC) 10 mg DAILY08 PO 08/25/20 08:00 11/29/20 09:12 Donepezil HCl (Aricept) 23 mg QHS PO 08/24/20 21:00 08/28/20 15:38 DC 08/27/20 20:34 Fluoxetine HCl (PROzac) 20 mg DAILY PO 08/25/20 09:00 11/29/20 09:11 Lorazepam (Ativan) 1 mg PRN Q4HRS PRN PO ANXIETY / AGITATION 08/24/20 18:45 09/04/20 16:12 DC 09/04/20 01:29 Atorvastatin Calcium (Lipitor) 40 mg QHS PO 08/24/20 21:00 11/29/20 20:46 Pantoprazole Sodium (Protonix) 40 mg DAILY08 PO 08/25/20 08:00 11/29/20 09:11 Multivitamins/ Calcium (Thera-M Plus) 1 tab DAILY PO 08/25/20 09:00 11/29/20 09:11 Mupirocin (Bactroban) 1 césar BID92 TP 08/25/20 09:00 09/03/20 12:35 DC 09/01/20 14:00 Fish Oil (Fish Oil) 1,000 mg DAILY PO 08/25/20 09:00 11/08/20 18:17 DC 11/07/20 08:19 Olanzapine (ZyPREXA ZYDIS) 2.5 mg PRN Q2HR PRN PO PSYCHOSIS 08/24/20 19:45 11/16/20 12:58 Sertraline HCl (Zoloft) 25 mg DAILY PO 08/26/20 09:00 08/28/20 21:00 DC 08/28/20 08:37 Sertraline HCl (Zoloft) 50 mg DAILY PO 08/29/20 09:00 09/06/20 18:40 DC 09/04/20 08:58 Tamsulosin HCl (Flomax) 0.4 mg QHS PO 08/28/20 21:00 11/29/20 20:46 Mupirocin (Bactroban) 1 césar PRN BID PRN TP RASH 09/03/20 12:45 Diphenhydramine HCl (Benadryl) 50 mg 1X ONCE PO 09/04/20 21:00 09/04/20 21:01 DC 09/04/20 21:21 Olanzapine (ZyPREXA ZYDIS) 5 mg 1X ONCE PO 09/27/20 18:30 09/27/20 18:31 DC 09/27/20 18:30 Divalproex Sodium (Depakote Sprinkles) 125 mg 0900,1700 PO 09/28/20 17:00 10/12/20 17:08 DC 10/12/20 08:18 Furosemide (Lasix) 80 mg 1X ONCE PO 09/30/20 15:30 09/30/20 15:31 DC 09/30/20 16:00 Furosemide (Lasix) 80 mg DAILY PO 10/01/20 09:00 11/08/20 18:17 DC 11/08/20 08:39 Potassium Chloride (Klor-Con) 20 meq DAILYWBKFT PO 10/01/20 08:00 11/29/20 09:11 Trazodone HCl (Desyrel) 50 mg PRN QHS PRN PO INSOMNIA 10/08/20 16:15 11/07/20 18:18 DC 10/09/20 20:15 Divalproex Sodium (Depakote Sprinkles) 125 mg 0900,1300,1700,2100 PO 10/12/20 17:50 10/21/20 17:01 DC 10/21/20 12:26 Divalproex Sodium (Depakote Sprinkles) 125 mg 1300,1700 PO 10/21/20 17:00 10/25/20 17:17 DC 10/25/20 15:29 Divalproex Sodium (Depakote Sprinkles) 250 mg 0900,2100 PO 10/21/20 21:00 10/25/20 17:17 DC 10/25/20 09:09 Divalproex Sodium (Depakote Sprinkles) 250 mg QID PO 10/25/20 17:15 11/29/20 20:46 Trazodone HCl (Desyrel) 50 mg HS PO 11/07/20 21:00 11/29/20 20:46 Furosemide (Lasix) 40 mg DAILY PO 11/09/20 09:00 11/29/20 09:10 Multi-Ingred Cream/Lotion/Oil/ Oint (Hydrocerin) 1 césar PRN Q1HR PRN TP DRY SKIN / SCALING 11/26/20 16:30 I have reviewed the current psychotropics carefully including drug interactions. Risk benefit ratio favors no change other than as noted in my dictated progress note. Diagnosis: Problems: (1) Impulse control disorder, unspecified (2) Anxiety disorder, unspecified (3) Dementia, vascular, with depression (4) Dementia, vascular, with delusions (5) Dementia in Alzheimer's disease with depression (6) Dementia in Alzheimer's disease with delusions (7) Dementia of the Alzheimer's type with early onset with behavioral disturbance (8) Major neurocognitive disorder VERENA AGUSTIN MD Nov 30, 2020 06:11
--- NOTE | 2020-11-30 06:24 | PDOC ---
Exam Note: Fercho Note: This note is a late entry for 11/29/2020 covers elements not covered in my initial note. Subjective: The patient was seen face to face in the evening of 11/29/2020 with Flower ABREU, discussed and reviewed the chart. He slept 6-1/2 hours previous night. He has been wandering into other patients rooms and put himself on the floor x1. No injuries noted. Behaviorally he has been confused, wandering but not agitated or aggressive. Review of Systems: Impaired ambulation in wheelchair. No CV, , pulmonary, eye, ENT system symptoms on review. Mental Status Exam: The patient oriented to himself and situation. I met with him in his room in the evening. He was again lying in bed but did awaken. Speech is coherent. Often verbal response is monosyllabic. Abstraction fair. Computation impaired. Language function intact. No suicidal or homicidal ideation. Mood and affect are improved. Laboratory Data: Reviewed. Impression: Major neurocognitive disorder Alzheimer vascular with delusion, depression, behavioral disturbance. Anxiety disorder unspecified. Impulse control disorder unspecified. Plan: Continue current psychotropics from initial note. Assessment: Vital Signs/I&O: Vital Signs Date Time Temp Pulse Resp B/P (MAP) Pulse Ox O2 Delivery O2 Flow Rate FiO2 11/30/20 06:10 96.8 58 18 118/70 (86) 95 11/26/20 15:21 Room Air I & O 11/29/20 11/29/20 11/30/20 15:00 23:00 07:00 Intake Total 720 ml 360 ml Balance 720 ml 360 ml Current Medications: Meds: Current Medications Medications (Trade) Dose Ordered Sig/Ashvin Route PRN Reason Start Time Stop Time Status Last Admin Dose Admin Acetaminophen (Tylenol) 650 mg PRN Q6HRS PRN PO MILD PAIN / TEMP > 100.3'F 08/24/20 18:15 11/14/20 05:44 Multi-Ingredient Ointment (Analgesic [place]) 1 césar PRN QID PRN TP MUSCLE PAIN 08/24/20 18:15 Al Hydroxide/Mg Hydroxide (Mylanta Plus Xs) 15 ml PRN AFTMEALHC PRN PO DYSPEPSIA 08/24/20 18:15 Magnesium Hydroxide (Milk Of Magnesia) 2,400 mg PRN QHS PRN PO CONSTIPATION 08/24/20 18:15 11/10/20 16:58 Aspirin (Aspirin Chewable) 81 mg DAILY PO 08/25/20 09:00 11/29/20 09:11 Cetirizine HCl (ZyrTEC) 10 mg DAILY08 PO 08/25/20 08:00 11/29/20 09:12 Donepezil HCl (Aricept) 23 mg QHS PO 08/24/20 21:00 08/28/20 15:38 DC 08/27/20 20:34 Fluoxetine HCl (PROzac) 20 mg DAILY PO 08/25/20 09:00 11/29/20 09:11 Lorazepam (Ativan) 1 mg PRN Q4HRS PRN PO ANXIETY / AGITATION 08/24/20 18:45 09/04/20 16:12 DC 09/04/20 01:29 Atorvastatin Calcium (Lipitor) 40 mg QHS PO 08/24/20 21:00 11/29/20 20:46 Pantoprazole Sodium (Protonix) 40 mg DAILY08 PO 08/25/20 08:00 11/29/20 09:11 Multivitamins/ Calcium (Thera-M Plus) 1 tab DAILY PO 08/25/20 09:00 11/29/20 09:11 Mupirocin (Bactroban) 1 césar BID92 TP 08/25/20 09:00 09/03/20 12:35 DC 09/01/20 14:00 Fish Oil (Fish Oil) 1,000 mg DAILY PO 08/25/20 09:00 11/08/20 18:17 DC 11/07/20 08:19 Olanzapine (ZyPREXA ZYDIS) 2.5 mg PRN Q2HR PRN PO PSYCHOSIS 08/24/20 19:45 11/16/20 12:58 Sertraline HCl (Zoloft) 25 mg DAILY PO 08/26/20 09:00 08/28/20 21:00 DC 08/28/20 08:37 Sertraline HCl (Zoloft) 50 mg DAILY PO 08/29/20 09:00 09/06/20 18:40 DC 09/04/20 08:58 Tamsulosin HCl (Flomax) 0.4 mg QHS PO 08/28/20 21:00 11/29/20 20:46 Mupirocin (Bactroban) 1 césar PRN BID PRN TP RASH 09/03/20 12:45 Diphenhydramine HCl (Benadryl) 50 mg 1X ONCE PO 09/04/20 21:00 09/04/20 21:01 DC 09/04/20 21:21 Olanzapine (ZyPREXA ZYDIS) 5 mg 1X ONCE PO 09/27/20 18:30 09/27/20 18:31 DC 09/27/20 18:30 Divalproex Sodium (Depakote Sprinkles) 125 mg 0900,1700 PO 09/28/20 17:00 10/12/20 17:08 DC 10/12/20 08:18 Furosemide (Lasix) 80 mg 1X ONCE PO 09/30/20 15:30 09/30/20 15:31 DC 09/30/20 16:00 Furosemide (Lasix) 80 mg DAILY PO 10/01/20 09:00 11/08/20 18:17 DC 11/08/20 08:39 Potassium Chloride (Klor-Con) 20 meq DAILYWBKFT PO 10/01/20 08:00 11/29/20 09:11 Trazodone HCl (Desyrel) 50 mg PRN QHS PRN PO INSOMNIA 10/08/20 16:15 11/07/20 18:18 DC 10/09/20 20:15 Divalproex Sodium (Depakote Sprinkles) 125 mg 0900,1300,1700,2100 PO 10/12/20 17:50 10/21/20 17:01 DC 10/21/20 12:26 Divalproex Sodium (Depakote Sprinkles) 125 mg 1300,1700 PO 10/21/20 17:00 10/25/20 17:17 DC 10/25/20 15:29 Divalproex Sodium (Depakote Sprinkles) 250 mg 0900,2100 PO 10/21/20 21:00 10/25/20 17:17 DC 10/25/20 09:09 Divalproex Sodium (Depakote Sprinkles) 250 mg QID PO 10/25/20 17:15 11/29/20 20:46 Trazodone HCl (Desyrel) 50 mg HS PO 11/07/20 21:00 11/29/20 20:46 Furosemide (Lasix) 40 mg DAILY PO 11/09/20 09:00 11/29/20 09:10 Multi-Ingred Cream/Lotion/Oil/ Oint (Hydrocerin) 1 césar PRN Q1HR PRN TP DRY SKIN / SCALING 11/26/20 16:30 I have reviewed the current psychotropics carefully including drug interactions. Risk benefit ratio favors no change other than as noted in my dictated progress note. Diagnosis: Problems: (1) Impulse control disorder, unspecified (2) Anxiety disorder, unspecified (3) Dementia, vascular, with depression (4) Dementia, vascular, with delusions (5) Dementia in Alzheimer's disease with depression (6) Dementia in Alzheimer's disease with delusions (7) Dementia of the Alzheimer's type with early onset with behavioral disturbance (8) Major neurocognitive disorder VERENA AGUSTIN MD Nov 30, 2020 06:24
[2020-11-30] MEDS: MULTIVITAMIN with MINERAL TABLET. PO SCH (08:46)
[2020-11-30] MEDS: CETIRIZINE HCL 10 MG TABLET PO SCH (08:46)
[2020-11-30] MEDS: FUROSEMIDE 40 MG TABLET PO SCH (08:47)
[2020-11-30] MEDS: POTASSIUM CHLORIDE 20 MEQ TABLET.ER. PO SCH (08:47)
[2020-11-30] MEDS: DIVALPROEX 125 MG CAP.SPRINK PO SCH ×4 (08:47→20:33)
[2020-11-30] MEDS: ASPIRIN CHEWABLE 81 MG TABLET. PO SCH (08:47)
[2020-11-30] MEDS: PANTOPRAZOLE 40 MG TABLET. PO SCH (08:47)
[2020-11-30 09:14] LABS: BASO % 1 % (0-3); EOS # 0.3 x10^3/uL (0.0-0.7); EOS % 5 % (0-3); HEMOGLOBIN 12.6 g/dL (13.0-17.5); LYMPH # 1.1 x10^3/uL (1.0-4.8); LYMPH % 20 % (24-48); MEAN CORPUSCULAR HEMOGLOBIN 29 pg (25-35); MEAN CORPUSCULAR HGB CONC 33 g/dL (31-37); MEAN CORPUSCULAR VOLUME 89 fL (79-100); MONO # 0.6 x10^3/uL (0.0-1.1); MONO % 10 % (0-9); NEUT # 3.7 x10^3uL (1.8-7.7); NEUT % 65 % (31-73); PLATELET COUNT 175 x10^3/uL (140-400); RED BLOOD COUNT 4.29 x10^6/uL (4.30-5.70); RED CELL DISTRIBUTION WIDTH 16.3 % (11.5-14.5); WHITE BLOOD COUNT 5.8 x10^3/uL (4.0-11.0)
[2020-11-30 09:44] LABS: ALBUMIN 3.3 g/dL (3.4-5.0); CALCIUM 8.2 mg/dL (8.5-10.1); CREATININE 1.5 mg/dL (0.7-1.3); GFR 45.9; POTASSIUM 3.9 mmol/L (3.5-5.1); TOTAL BILIRUBIN 0.7 mg/dL (0.2-1.0); TOTAL PROTEIN 6.5 g/dL (6.4-8.2)
[2020-11-30 15:34] VITALS: BP 91/55
[2020-11-30] MEDS: TAMSULOSIN 0.4 MG CAP.ER.24H. PO SCH (20:33)
[2020-11-30] MEDS: traZODone 50 MG TABLET. PO SCH (20:33)
[2020-11-30] MEDS: ATORVASTATIN CALCIUM 20 MG TABLET PO SCH (20:33)
--- NOTE | 2020-11-30 21:57 | PDOC ---
Exam Note: Fercho Note: Please also refer to the separate dictated note~for this date of service dictated separately.~Patient seen individually. Discussed the patient with Nursing staff reviewed the chart.~Reviewed interim history and current functioning. Reviewed vital signs,~Labs/ Radiology~and current medications noted below. Continue current treatment with the changes noted in the dictated addendum note Assessment: Vital Signs/I&O: Vital Signs Date Time Temp Pulse Resp B/P (MAP) Pulse Ox O2 Delivery O2 Flow Rate FiO2 11/30/20 15:34 97.7 71 16 91/55 (67) 92 11/26/20 15:21 Room Air I & O 11/29/20 11/29/20 11/30/20 15:00 23:00 07:00 Intake Total 720 ml 360 ml Balance 720 ml 360 ml Labs: Laboratory Tests Test 11/30/20 04:00 11/30/20 09:05 SARS-CoV-2 (PCR) Negative (NEGATIVE) White Blood Count 5.8 x10^3/uL (4.0-11.0) Red Blood Count 4.29 x10^6/uL (4.30-5.70) L Hemoglobin 12.6 g/dL (13.0-17.5) L Hematocrit 38.0 % (39.0-53.0) L Mean Corpuscular Volume 89 fL (79-100) Mean Corpuscular Hemoglobin 29 pg (25-35) Mean Corpuscular Hemoglobin Concent 33 g/dL (31-37) Red Cell Distribution Width 16.3 % (11.5-14.5) H Platelet Count 175 x10^3/uL (140-400) Neutrophils (%) (Auto) 65 % (31-73) Lymphocytes (%) (Auto) 20 % (24-48) L Monocytes (%) (Auto) 10 % (0-9) H Eosinophils (%) (Auto) 5 % (0-3) H Basophils (%) (Auto) 1 % (0-3) Neutrophils # (Auto) 3.7 x10^3uL (1.8-7.7) Lymphocytes # (Auto) 1.1 x10^3/uL (1.0-4.8) Monocytes # (Auto) 0.6 x10^3/uL (0.0-1.1) Eosinophils # (Auto) 0.3 x10^3/uL (0.0-0.7) Basophils # (Auto) 0.0 x10^3/uL (0.0-0.2) Sodium Level 141 mmol/L (136-145) Potassium Level 3.9 mmol/L (3.5-5.1) Chloride Level 104 mmol/L (98-107) Carbon Dioxide Level 32 mmol/L (21-32) Anion Gap 5 (6-14) L Blood Urea Nitrogen 30 mg/dL (8-26) H Creatinine 1.5 mg/dL (0.7-1.3) H Estimated GFR (Cockcroft-Gault) 45.9 BUN/Creatinine Ratio 20 (6-20) Glucose Level 89 mg/dL (70-99) Calcium Level 8.2 mg/dL (8.5-10.1) L Total Bilirubin 0.7 mg/dL (0.2-1.0) Aspartate Amino Transferase (AST) 24 U/L (15-37) Alanine Aminotransferase (ALT) 27 U/L (16-63) Alkaline Phosphatase 54 U/L (46-116) Total Protein 6.5 g/dL (6.4-8.2) Albumin 3.3 g/dL (3.4-5.0) L Albumin/Globulin Ratio 1.0 (1.0-1.7) Current Medications: Meds: Laboratory Tests Test 11/30/20 04:00 11/30/20 09:05 Coronavirus (COVID-19)(PCR) Negative White Blood Count 5.8 x10^3/uL Red Blood Count 4.29 x10^6/uL Hemoglobin 12.6 g/dL Hematocrit 38.0 % Mean Corpuscular Volume 89 fL Mean Corpuscular Hemoglobin 29 pg Mean Corpuscular Hemoglobin Concent 33 g/dL Red Cell Distribution Width 16.3 % Platelet Count 175 x10^3/uL Neutrophils (%) (Auto) 65 % Lymphocytes (%) (Auto) 20 % Monocytes (%) (Auto) 10 % Eosinophils (%) (Auto) 5 % Basophils (%) (Auto) 1 % Neutrophils # (Auto) 3.7 x10^3uL Lymphocytes # (Auto) 1.1 x10^3/uL Monocytes # (Auto) 0.6 x10^3/uL Eosinophils # (Auto) 0.3 x10^3/uL Basophils # (Auto) 0.0 x10^3/uL Sodium Level 141 mmol/L Potassium Level 3.9 mmol/L Chloride Level 104 mmol/L Carbon Dioxide Level 32 mmol/L Anion Gap 5 Blood Urea Nitrogen 30 mg/dL Creatinine 1.5 mg/dL Estimated GFR (Cockcroft-Gault) 45.9 BUN/Creatinine Ratio 20 Glucose Level 89 mg/dL Calcium Level 8.2 mg/dL Total Bilirubin 0.7 mg/dL Aspartate Amino Transf (AST/SGOT) 24 U/L Alanine Aminotransferase (ALT/SGPT) 27 U/L Alkaline Phosphatase 54 U/L Total Protein 6.5 g/dL Albumin 3.3 g/dL Albumin/Globulin Ratio 1.0 Current Medications Medications (Trade) Dose Ordered Sig/Ashvin Route PRN Reason Start Time Stop Time Status Last Admin Dose Admin Acetaminophen (Tylenol) 650 mg PRN Q6HRS PRN PO MILD PAIN / TEMP > 100.3'F 08/24/20 18:15 11/14/20 05:44 Multi-Ingredient Ointment (Analgesic [place]) 1 césar PRN QID PRN TP MUSCLE PAIN 08/24/20 18:15 Al Hydroxide/Mg Hydroxide (Mylanta Plus Xs) 15 ml PRN AFTMEALHC PRN PO DYSPEPSIA 08/24/20 18:15 Magnesium Hydroxide (Milk Of Magnesia) 2,400 mg PRN QHS PRN PO CONSTIPATION 08/24/20 18:15 11/10/20 16:58 Aspirin (Aspirin Chewable) 81 mg DAILY PO 08/25/20 09:00 11/30/20 08:47 Cetirizine HCl (ZyrTEC) 10 mg DAILY08 PO 08/25/20 08:00 11/30/20 08:46 Donepezil HCl (Aricept) 23 mg QHS PO 08/24/20 21:00 08/28/20 15:38 DC 08/27/20 20:34 Fluoxetine HCl (PROzac) 20 mg DAILY PO 08/25/20 09:00 11/30/20 08:47 Lorazepam (Ativan) 1 mg PRN Q4HRS PRN PO ANXIETY / AGITATION 08/24/20 18:45 09/04/20 16:12 DC 09/04/20 01:29 Atorvastatin Calcium (Lipitor) 40 mg QHS PO 08/24/20 21:00 11/30/20 20:33 Pantoprazole Sodium (Protonix) 40 mg DAILY08 PO 08/25/20 08:00 11/30/20 08:47 Multivitamins/ Calcium (Thera-M Plus) 1 tab DAILY PO 08/25/20 09:00 11/30/20 08:46 Mupirocin (Bactroban) 1 césar BID92 TP 08/25/20 09:00 09/03/20 12:35 DC 09/01/20 14:00 Fish Oil (Fish Oil) 1,000 mg DAILY PO 08/25/20 09:00 11/08/20 18:17 DC 11/07/20 08:19 Olanzapine (ZyPREXA ZYDIS) 2.5 mg PRN Q2HR PRN PO PSYCHOSIS 08/24/20 19:45 11/16/20 12:58 Sertraline HCl (Zoloft) 25 mg DAILY PO 08/26/20 09:00 08/28/20 21:00 DC 08/28/20 08:37 Sertraline HCl (Zoloft) 50 mg DAILY PO 08/29/20 09:00 09/06/20 18:40 DC 09/04/20 08:58 Tamsulosin HCl (Flomax) 0.4 mg QHS PO 08/28/20 21:00 11/30/20 20:33 Mupirocin (Bactroban) 1 césar PRN BID PRN TP RASH 09/03/20 12:45 Diphenhydramine HCl (Benadryl) 50 mg 1X ONCE PO 09/04/20 21:00 09/04/20 21:01 DC 09/04/20 21:21 Olanzapine (ZyPREXA ZYDIS) 5 mg 1X ONCE PO 09/27/20 18:30 09/27/20 18:31 DC 09/27/20 18:30 Divalproex Sodium (Depakote Sprinkles) 125 mg 0900,1700 PO 09/28/20 17:00 10/12/20 17:08 DC 10/12/20 08:18 Furosemide (Lasix) 80 mg 1X ONCE PO 09/30/20 15:30 09/30/20 15:31 DC 09/30/20 16:00 Furosemide (Lasix) 80 mg DAILY PO 10/01/20 09:00 11/08/20 18:17 DC 11/08/20 08:39 Potassium Chloride (Klor-Con) 20 meq DAILYWBKFT PO 10/01/20 08:00 11/30/20 08:47 Trazodone HCl (Desyrel) 50 mg PRN QHS PRN PO INSOMNIA 10/08/20 16:15 11/07/20 18:18 DC 10/09/20 20:15 Divalproex Sodium (Depakote Sprinkles) 125 mg 0900,1300,1700,2100 PO 10/12/20 17:50 10/21/20 17:01 DC 10/21/20 12:26 Divalproex Sodium (Depakote Sprinkles) 125 mg 1300,1700 PO 10/21/20 17:00 10/25/20 17:17 DC 10/25/20 15:29 Divalproex Sodium (Depakote Sprinkles) 250 mg 0900,2100 PO 10/21/20 21:00 10/25/20 17:17 DC 10/25/20 09:09 Divalproex Sodium (Depakote Sprinkles) 250 mg QID PO 10/25/20 17:15 11/30/20 20:33 Trazodone HCl (Desyrel) 50 mg HS PO 11/07/20 21:00 11/30/20 20:33 Furosemide (Lasix) 40 mg DAILY PO 11/09/20 09:00 11/30/20 08:47 Multi-Ingred Cream/Lotion/Oil/ Oint (Hydrocerin) 1 césar PRN Q1HR PRN TP DRY SKIN / SCALING 11/26/20 16:30 I have reviewed the current psychotropics carefully including drug interactions. Risk benefit ratio favors no change other than as noted in my dictated progress note. Diagnosis: Problems: (1) Impulse control disorder, unspecified (2) Anxiety disorder, unspecified (3) Dementia, vascular, with depression (4) Dementia, vascular, with delusions (5) Dementia in Alzheimer's disease with depression (6) Dementia in Alzheimer's disease with delusions (7) Dementia of the Alzheimer's type with early onset with behavioral disturbance (8) Major neurocognitive disorder VERENA AGUSTIN MD Nov 30, 2020 21:56
[2020-12-01 06:24] VITALS: BP 110/74
[2020-12-01] MEDS: MULTIVITAMIN with MINERAL TABLET. PO SCH (08:57)
[2020-12-01] MEDS: ASPIRIN CHEWABLE 81 MG TABLET. PO SCH (08:57)
[2020-12-01] MEDS: POTASSIUM CHLORIDE 20 MEQ TABLET.ER. PO SCH (08:57)
[2020-12-01] MEDS: DIVALPROEX 125 MG CAP.SPRINK PO SCH ×4 (08:57→20:51)
[2020-12-01] MEDS: FUROSEMIDE 40 MG TABLET PO SCH (08:57)
[2020-12-01] MEDS: CETIRIZINE HCL 10 MG TABLET PO SCH (08:57)
[2020-12-01] MEDS: PANTOPRAZOLE 40 MG TABLET. PO SCH (08:57)
--- NOTE | 2020-12-01 10:39 | TX PLAN ---
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 Change Sleep, Confusion/Disoriented, Poor impulse control, Other Problem in Patient's Words: I cannot care for him at home. Additional Admission Comments: According to the intake, pt was anxious, wandering, restless, insomnia, posturing [facility] staff, struck which resulted in police response Problems Active Problems: wandering restless Inactive Problems: medication compliant Pt Strengths/Limitations Ability for [place]: Poor Cognitive Functioning/Ability: Fair Communication Skills/Ability: Fair Financial Resources: Poor Insight/Judgement: Poor Intellectual Ability: Poor Physical Health: Fair Social Skills: Fair Stability in Family: Fair Stability in School/Work: Poor Verbal Skills: Fair Discharge Criteria Discharge Criteria: No need for close observ., Adequate arrangements @DC, Improved behavior, Improved mood/thought Preliminary Discharge Plan Preliminary DC Plan: Placement Needed Special Precautions Fall Risk: Low Initial D/C Plan Pt is not able to discharge home, will need placement once stable. Identified Discharge Needs: Referral for higher level of care Currently Utilized Resources Currently Utilized Resources/P: Primary Care Physician Identified Problems/Hx/Goals Objectives/Short-Term Goals Short Term Goals: Dec. Aggression, Dec. Outbursts, Medication Stabilization, Monitor Med Effects Short Term Goals in Patient's: N/A Interventions/Frequency Staff Interventions/Frequency&: Psychiatrist to assess pt at least 3x per week for medication management. Social Work to assess pt at least 2x per week to identify barriers to care and finalize discharge planning. Nursing to assess medication effects, behavior modification, and completion of 15 minute checks daily. Encourage participation in group activities (if applicable) or 1:1 engagement based off Activity Dept goals. 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 He received a Bachelors in Sociology. Community Follow-up Primary Care Physician Referrals to higher level of care Community Provider/Family Inpu: Pt has become increasingly aggressive towards his , who is caring for pt. She is not able to care for pt at home any longer. Treatment Plan Explained Patient/Inside Sales Lead had this treatment plan explained to him/her as indicated by the signature below and has been given the opportunity to ask questions and make suggestions: Date: Patient/Inside Sales Lead Signature: Status Update Update Pt is eating roughly 75% of meals and sleeping on average 7.5 hours per night. Pt is calm, compliant and cooperative with all cares. Pt does continue to wander the unit but not exit seeking. Pt participates in groups with moderate participation, at times needing prompting. Pt is pleasant in his interactions with peers and staff, no physical behaviors noted within the last week. Referrals on pt continues to be sent out with multiple denials; Kymberly Christian is continuing to assess pt for potential placement. SW will continue to work with pt family in finding placement and verbalizing discharge plans. WALESKA HARRELL Dec 01, 2020 10:38
[2020-12-01 15:46] VITALS: BP 114/78
[2020-12-01] MEDS: traZODone 50 MG TABLET. PO SCH (20:51)
[2020-12-01] MEDS: TAMSULOSIN 0.4 MG CAP.ER.24H. PO SCH (20:51)
[2020-12-01] MEDS: ATORVASTATIN CALCIUM 20 MG TABLET PO SCH (20:51)
--- NOTE | 2020-12-01 21:55 | PDOC ---
Exam Note: Fercho Note: Please also refer to the separate dictated note~for this date of service dictated separately.~Patient seen individually. Discussed the patient with Nursing staff reviewed the chart.~Reviewed interim history and current functioning. Reviewed vital signs,~Labs/ Radiology~and current medications noted below. Continue current treatment with the changes noted in the dictated addendum note Assessment: Vital Signs/I&O: Vital Signs Date Time Temp Pulse Resp B/P (MAP) Pulse Ox O2 Delivery O2 Flow Rate FiO2 12/01/20 15:46 97.4 77 16 114/78 (90) 96 11/26/20 15:21 Room Air I & O 11/30/20 11/30/20 12/01/20 15:00 23:00 07:00 Intake Total 480 ml 600 ml Balance 480 ml 600 ml Current Medications: Meds: Current Medications Medications (Trade) Dose Ordered Sig/Ashvin Route PRN Reason Start Time Stop Time Status Last Admin Dose Admin Acetaminophen (Tylenol) 650 mg PRN Q6HRS PRN PO MILD PAIN / TEMP > 100.3'F 08/24/20 18:15 11/14/20 05:44 Multi-Ingredient Ointment (Analgesic [place]) 1 césar PRN QID PRN TP MUSCLE PAIN 08/24/20 18:15 Al Hydroxide/Mg Hydroxide (Mylanta Plus Xs) 15 ml PRN AFTMEALHC PRN PO DYSPEPSIA 08/24/20 18:15 Magnesium Hydroxide (Milk Of Magnesia) 2,400 mg PRN QHS PRN PO CONSTIPATION 08/24/20 18:15 11/10/20 16:58 Aspirin (Aspirin Chewable) 81 mg DAILY PO 08/25/20 09:00 12/01/20 08:57 Cetirizine HCl (ZyrTEC) 10 mg DAILY08 PO 08/25/20 08:00 12/01/20 08:57 Donepezil HCl (Aricept) 23 mg QHS PO 08/24/20 21:00 08/28/20 15:38 DC 08/27/20 20:34 Fluoxetine HCl (PROzac) 20 mg DAILY PO 08/25/20 09:00 12/01/20 08:56 Lorazepam (Ativan) 1 mg PRN Q4HRS PRN PO ANXIETY / AGITATION 08/24/20 18:45 09/04/20 16:12 DC 09/04/20 01:29 Atorvastatin Calcium (Lipitor) 40 mg QHS PO 08/24/20 21:00 12/01/20 20:51 Pantoprazole Sodium (Protonix) 40 mg DAILY08 PO 08/25/20 08:00 12/01/20 08:57 Multivitamins/ Calcium (Thera-M Plus) 1 tab DAILY PO 08/25/20 09:00 12/01/20 08:57 Mupirocin (Bactroban) 1 césar BID92 TP 08/25/20 09:00 09/03/20 12:35 DC 09/01/20 14:00 Fish Oil (Fish Oil) 1,000 mg DAILY PO 08/25/20 09:00 11/08/20 18:17 DC 11/07/20 08:19 Olanzapine (ZyPREXA ZYDIS) 2.5 mg PRN Q2HR PRN PO PSYCHOSIS 08/24/20 19:45 11/16/20 12:58 Sertraline HCl (Zoloft) 25 mg DAILY PO 08/26/20 09:00 08/28/20 21:00 DC 08/28/20 08:37 Sertraline HCl (Zoloft) 50 mg DAILY PO 08/29/20 09:00 09/06/20 18:40 DC 09/04/20 08:58 Tamsulosin HCl (Flomax) 0.4 mg QHS PO 08/28/20 21:00 12/01/20 20:51 Mupirocin (Bactroban) 1 césar PRN BID PRN TP RASH 09/03/20 12:45 Diphenhydramine HCl (Benadryl) 50 mg 1X ONCE PO 09/04/20 21:00 09/04/20 21:01 DC 09/04/20 21:21 Olanzapine (ZyPREXA ZYDIS) 5 mg 1X ONCE PO 09/27/20 18:30 09/27/20 18:31 DC 09/27/20 18:30 Divalproex Sodium (Depakote Sprinkles) 125 mg 0900,1700 PO 09/28/20 17:00 10/12/20 17:08 DC 10/12/20 08:18 Furosemide (Lasix) 80 mg 1X ONCE PO 09/30/20 15:30 09/30/20 15:31 DC 09/30/20 16:00 Furosemide (Lasix) 80 mg DAILY PO 10/01/20 09:00 11/08/20 18:17 DC 11/08/20 08:39 Potassium Chloride (Klor-Con) 20 meq DAILYWBKFT PO 10/01/20 08:00 12/01/20 08:57 Trazodone HCl (Desyrel) 50 mg PRN QHS PRN PO INSOMNIA 10/08/20 16:15 11/07/20 18:18 DC 10/09/20 20:15 Divalproex Sodium (Depakote Sprinkles) 125 mg 0900,1300,1700,2100 PO 10/12/20 17:50 10/21/20 17:01 DC 10/21/20 12:26 Divalproex Sodium (Depakote Sprinkles) 125 mg 1300,1700 PO 10/21/20 17:00 10/25/20 17:17 DC 10/25/20 15:29 Divalproex Sodium (Depakote Sprinkles) 250 mg 0900,2100 PO 10/21/20 21:00 10/25/20 17:17 DC 10/25/20 09:09 Divalproex Sodium (Depakote Sprinkles) 250 mg QID PO 10/25/20 17:15 12/01/20 20:51 Trazodone HCl (Desyrel) 50 mg HS PO 11/07/20 21:00 12/01/20 20:51 Furosemide (Lasix) 40 mg DAILY PO 11/09/20 09:00 12/01/20 08:57 Multi-Ingred Cream/Lotion/Oil/ Oint (Hydrocerin) 1 césar PRN Q1HR PRN TP DRY SKIN / SCALING 11/26/20 16:30 I have reviewed the current psychotropics carefully including drug interactions. Risk benefit ratio favors no change other than as noted in my dictated progress note. Diagnosis: Problems: (1) Impulse control disorder, unspecified (2) Anxiety disorder, unspecified (3) Dementia, vascular, with depression (4) Dementia, vascular, with delusions (5) Dementia in Alzheimer's disease with depression (6) Dementia in Alzheimer's disease with delusions (7) Dementia of the Alzheimer's type with early onset with behavioral disturbance (8) Major neurocognitive disorder VERENA AGUSTIN MD Dec 01, 2020 21:55
[2020-12-02 06:04] VITALS: BP 109/69
--- NOTE | 2020-12-02 06:13 | PDOC ---
Exam Note: Fercho Note: This note is a late entry for 11/30/2020 covers elements not covered in my initial note. Subjective: The patient was seen face to face in the evening of 11/30/2020 with Carlos ABREU, discussed and reviewed the chart. He slept 7-1/2 hours previous night. He has been confused, wanders the hallways, not aggressive. I met with him in his room. Review of Systems: Impaired ambulation in wheelchair. No CV, , pulmonary, eye, ENT system symptoms on review. Mental Status Exam: The patient oriented to himself and situation. Speech is coherent. Often verbal response is monosyllabic. Abstraction fair. Computation impaired. Language function intact. No suicidal or homicidal ideation. Mood and affect are improved. Laboratory Data: Reviewed. Impression: Major neurocognitive disorder Alzheimer vascular with delusion, depression, behavioral disturbance. Anxiety disorder unspecified. Impulse control disorder unspecified. Plan: Continue current psychotropics from initial note. Assessment: Vital Signs/I&O: Vital Signs Date Time Temp Pulse Resp B/P (MAP) Pulse Ox O2 Delivery O2 Flow Rate FiO2 12/02/20 06:04 97.4 56 18 109/69 (82) 97 11/26/20 15:21 Room Air I & O 12/01/20 12/01/20 12/02/20 15:00 23:00 07:00 Intake Total 720 ml 480 ml Balance 720 ml 480 ml Current Medications: Meds: Current Medications Medications (Trade) Dose Ordered Sig/Ashvin Route PRN Reason Start Time Stop Time Status Last Admin Dose Admin Acetaminophen (Tylenol) 650 mg PRN Q6HRS PRN PO MILD PAIN / TEMP > 100.3'F 08/24/20 18:15 11/14/20 05:44 Multi-Ingredient Ointment (Analgesic [place]) 1 césar PRN QID PRN TP MUSCLE PAIN 08/24/20 18:15 Al Hydroxide/Mg Hydroxide (Mylanta Plus Xs) 15 ml PRN AFTMEALHC PRN PO DYSPEPSIA 08/24/20 18:15 Magnesium Hydroxide (Milk Of Magnesia) 2,400 mg PRN QHS PRN PO CONSTIPATION 08/24/20 18:15 11/10/20 16:58 Aspirin (Aspirin Chewable) 81 mg DAILY PO 08/25/20 09:00 12/01/20 08:57 Cetirizine HCl (ZyrTEC) 10 mg DAILY08 PO 08/25/20 08:00 12/01/20 08:57 Donepezil HCl (Aricept) 23 mg QHS PO 08/24/20 21:00 08/28/20 15:38 DC 08/27/20 20:34 Fluoxetine HCl (PROzac) 20 mg DAILY PO 08/25/20 09:00 12/01/20 08:56 Lorazepam (Ativan) 1 mg PRN Q4HRS PRN PO ANXIETY / AGITATION 08/24/20 18:45 09/04/20 16:12 DC 09/04/20 01:29 Atorvastatin Calcium (Lipitor) 40 mg QHS PO 08/24/20 21:00 12/01/20 20:51 Pantoprazole Sodium (Protonix) 40 mg DAILY08 PO 08/25/20 08:00 12/01/20 08:57 Multivitamins/ Calcium (Thera-M Plus) 1 tab DAILY PO 08/25/20 09:00 12/01/20 08:57 Mupirocin (Bactroban) 1 césar BID92 TP 08/25/20 09:00 09/03/20 12:35 DC 09/01/20 14:00 Fish Oil (Fish Oil) 1,000 mg DAILY PO 08/25/20 09:00 11/08/20 18:17 DC 11/07/20 08:19 Olanzapine (ZyPREXA ZYDIS) 2.5 mg PRN Q2HR PRN PO PSYCHOSIS 08/24/20 19:45 11/16/20 12:58 Sertraline HCl (Zoloft) 25 mg DAILY PO 08/26/20 09:00 08/28/20 21:00 DC 08/28/20 08:37 Sertraline HCl (Zoloft) 50 mg DAILY PO 08/29/20 09:00 09/06/20 18:40 DC 09/04/20 08:58 Tamsulosin HCl (Flomax) 0.4 mg QHS PO 08/28/20 21:00 12/01/20 20:51 Mupirocin (Bactroban) 1 césar PRN BID PRN TP RASH 09/03/20 12:45 Diphenhydramine HCl (Benadryl) 50 mg 1X ONCE PO 09/04/20 21:00 09/04/20 21:01 DC 09/04/20 21:21 Olanzapine (ZyPREXA ZYDIS) 5 mg 1X ONCE PO 09/27/20 18:30 09/27/20 18:31 DC 09/27/20 18:30 Divalproex Sodium (Depakote Sprinkles) 125 mg 0900,1700 PO 09/28/20 17:00 10/12/20 17:08 DC 10/12/20 08:18 Furosemide (Lasix) 80 mg 1X ONCE PO 09/30/20 15:30 09/30/20 15:31 DC 09/30/20 16:00 Furosemide (Lasix) 80 mg DAILY PO 10/01/20 09:00 11/08/20 18:17 DC 11/08/20 08:39 Potassium Chloride (Klor-Con) 20 meq DAILYWBKFT PO 10/01/20 08:00 12/01/20 08:57 Trazodone HCl (Desyrel) 50 mg PRN QHS PRN PO INSOMNIA 10/08/20 16:15 11/07/20 18:18 DC 10/09/20 20:15 Divalproex Sodium (Depakote Sprinkles) 125 mg 0900,1300,1700,2100 PO 10/12/20 17:50 10/21/20 17:01 DC 10/21/20 12:26 Divalproex Sodium (Depakote Sprinkles) 125 mg 1300,1700 PO 10/21/20 17:00 10/25/20 17:17 DC 10/25/20 15:29 Divalproex Sodium (Depakote Sprinkles) 250 mg 0900,2100 PO 10/21/20 21:00 10/25/20 17:17 DC 10/25/20 09:09 Divalproex Sodium (Depakote Sprinkles) 250 mg QID PO 10/25/20 17:15 12/01/20 20:51 Trazodone HCl (Desyrel) 50 mg HS PO 11/07/20 21:00 12/01/20 20:51 Furosemide (Lasix) 40 mg DAILY PO 11/09/20 09:00 12/01/20 08:57 Multi-Ingred Cream/Lotion/Oil/ Oint (Hydrocerin) 1 césar PRN Q1HR PRN TP DRY SKIN / SCALING 11/26/20 16:30 I have reviewed the current psychotropics carefully including drug interactions. Risk benefit ratio favors no change other than as noted in my dictated progress note. Diagnosis: Problems: (1) Impulse control disorder, unspecified (2) Anxiety disorder, unspecified (3) Dementia, vascular, with depression (4) Dementia, vascular, with delusions (5) Dementia in Alzheimer's disease with depression (6) Dementia in Alzheimer's disease with delusions (7) Dementia of the Alzheimer's type with early onset with behavioral disturbance (8) Major neurocognitive disorder VERENA AGUSTIN MD Dec 02, 2020 06:13
--- NOTE | 2020-12-02 06:23 | PDOC ---
Exam Note: Fercho Note: This note is a late entry for 12/01/2020 covers elements not covered in my initial note. Subjective: The patient was reviewed at treatment team meeting individually in the morning on 12/01/2020 with Niecy Naqvi, Ingris Serrano (social worker delinquency prevention), Ingrid, activity therapy and Brittany ABREU, discussed and reviewed the chart. He slept 7 hours previous night. Appetite is 70%. He has been wandering. He remains confused, attended 5 groups in the past one week. He has not been aggressive. Review of Systems: Impaired ambulation in wheelchair. No CV, , pulmonary, eye, ENT system symptoms on review. Mental Status Exam: The patient oriented to himself and situation. I met with him in his room. He was trying to make his bed to get ready for the evening. Speech is coherent. Abstraction fair. Computation impaired. Language function intact. Mood and affect are improved. No suicidal or homicidal ideation. Laboratory Data: Reviewed. Impression: Major neurocognitive disorder Alzheimer vascular with delusion, depression, behavioral disturbance. Anxiety disorder unspecified. Impulse control disorder unspecified. Plan: Continue current psychotropics from initial note. Assessment: Vital Signs/I&O: Vital Signs Date Time Temp Pulse Resp B/P (MAP) Pulse Ox O2 Delivery O2 Flow Rate FiO2 12/02/20 06:04 97.4 56 18 109/69 (82) 97 11/26/20 15:21 Room Air I & O 12/01/20 12/01/20 12/02/20 15:00 23:00 07:00 Intake Total 720 ml 480 ml Balance 720 ml 480 ml Current Medications: Meds: Current Medications Medications (Trade) Dose Ordered Sig/Ashvin Route PRN Reason Start Time Stop Time Status Last Admin Dose Admin Acetaminophen (Tylenol) 650 mg PRN Q6HRS PRN PO MILD PAIN / TEMP > 100.3'F 08/24/20 18:15 11/14/20 05:44 Multi-Ingredient Ointment (Analgesic [place]) 1 césar PRN QID PRN TP MUSCLE PAIN 08/24/20 18:15 Al Hydroxide/Mg Hydroxide (Mylanta Plus Xs) 15 ml PRN AFTMEALHC PRN PO DYSPEPSIA 08/24/20 18:15 Magnesium Hydroxide (Milk Of Magnesia) 2,400 mg PRN QHS PRN PO CONSTIPATION 08/24/20 18:15 11/10/20 16:58 Aspirin (Aspirin Chewable) 81 mg DAILY PO 08/25/20 09:00 12/01/20 08:57 Cetirizine HCl (ZyrTEC) 10 mg DAILY08 PO 08/25/20 08:00 12/01/20 08:57 Donepezil HCl (Aricept) 23 mg QHS PO 08/24/20 21:00 08/28/20 15:38 DC 08/27/20 20:34 Fluoxetine HCl (PROzac) 20 mg DAILY PO 08/25/20 09:00 12/01/20 08:56 Lorazepam (Ativan) 1 mg PRN Q4HRS PRN PO ANXIETY / AGITATION 08/24/20 18:45 09/04/20 16:12 DC 09/04/20 01:29 Atorvastatin Calcium (Lipitor) 40 mg QHS PO 08/24/20 21:00 12/01/20 20:51 Pantoprazole Sodium (Protonix) 40 mg DAILY08 PO 08/25/20 08:00 12/01/20 08:57 Multivitamins/ Calcium (Thera-M Plus) 1 tab DAILY PO 08/25/20 09:00 12/01/20 08:57 Mupirocin (Bactroban) 1 césar BID92 TP 08/25/20 09:00 09/03/20 12:35 DC 09/01/20 14:00 Fish Oil (Fish Oil) 1,000 mg DAILY PO 08/25/20 09:00 11/08/20 18:17 DC 11/07/20 08:19 Olanzapine (ZyPREXA ZYDIS) 2.5 mg PRN Q2HR PRN PO PSYCHOSIS 08/24/20 19:45 11/16/20 12:58 Sertraline HCl (Zoloft) 25 mg DAILY PO 08/26/20 09:00 08/28/20 21:00 DC 08/28/20 08:37 Sertraline HCl (Zoloft) 50 mg DAILY PO 08/29/20 09:00 09/06/20 18:40 DC 09/04/20 08:58 Tamsulosin HCl (Flomax) 0.4 mg QHS PO 08/28/20 21:00 12/01/20 20:51 Mupirocin (Bactroban) 1 césar PRN BID PRN TP RASH 09/03/20 12:45 Diphenhydramine HCl (Benadryl) 50 mg 1X ONCE PO 09/04/20 21:00 09/04/20 21:01 DC 09/04/20 21:21 Olanzapine (ZyPREXA ZYDIS) 5 mg 1X ONCE PO 09/27/20 18:30 09/27/20 18:31 DC 09/27/20 18:30 Divalproex Sodium (Depakote Sprinkles) 125 mg 0900,1700 PO 09/28/20 17:00 10/12/20 17:08 DC 10/12/20 08:18 Furosemide (Lasix) 80 mg 1X ONCE PO 09/30/20 15:30 09/30/20 15:31 DC 09/30/20 16:00 Furosemide (Lasix) 80 mg DAILY PO 10/01/20 09:00 11/08/20 18:17 DC 11/08/20 08:39 Potassium Chloride (Klor-Con) 20 meq DAILYWBKFT PO 10/01/20 08:00 12/01/20 08:57 Trazodone HCl (Desyrel) 50 mg PRN QHS PRN PO INSOMNIA 10/08/20 16:15 11/07/20 18:18 DC 10/09/20 20:15 Divalproex Sodium (Depakote Sprinkles) 125 mg 0900,1300,1700,2100 PO 10/12/20 17:50 10/21/20 17:01 DC 10/21/20 12:26 Divalproex Sodium (Depakote Sprinkles) 125 mg 1300,1700 PO 10/21/20 17:00 10/25/20 17:17 DC 10/25/20 15:29 Divalproex Sodium (Depakote Sprinkles) 250 mg 0900,2100 PO 10/21/20 21:00 10/25/20 17:17 DC 10/25/20 09:09 Divalproex Sodium (Depakote Sprinkles) 250 mg QID PO 10/25/20 17:15 12/01/20 20:51 Trazodone HCl (Desyrel) 50 mg HS PO 11/07/20 21:00 12/01/20 20:51 Furosemide (Lasix) 40 mg DAILY PO 11/09/20 09:00 12/01/20 08:57 Multi-Ingred Cream/Lotion/Oil/ Oint (Hydrocerin) 1 césar PRN Q1HR PRN TP DRY SKIN / SCALING 11/26/20 16:30 I have reviewed the current psychotropics carefully including drug interactions. Risk benefit ratio favors no change other than as noted in my dictated progress note. Diagnosis: Problems: (1) Impulse control disorder, unspecified (2) Anxiety disorder, unspecified (3) Dementia, vascular, with depression (4) Dementia, vascular, with delusions (5) Dementia in Alzheimer's disease with depression (6) Dementia in Alzheimer's disease with delusions (7) Dementia of the Alzheimer's type with early onset with behavioral dis turbance (8) Major neurocognitive disorder VERENA AGUSTIN MD Dec 02, 2020 06:23
[2020-12-02] MEDS: MULTIVITAMIN with MINERAL TABLET. PO SCH (08:51)
[2020-12-02] MEDS: PANTOPRAZOLE 40 MG TABLET. PO SCH (08:51)
[2020-12-02] MEDS: ASPIRIN CHEWABLE 81 MG TABLET. PO SCH (08:51)
[2020-12-02] MEDS: FUROSEMIDE 40 MG TABLET PO SCH (08:51)
[2020-12-02] MEDS: CETIRIZINE HCL 10 MG TABLET PO SCH (08:51)
[2020-12-02] MEDS: POTASSIUM CHLORIDE 20 MEQ TABLET.ER. PO SCH (08:51)
[2020-12-02] MEDS: DIVALPROEX 125 MG CAP.SPRINK PO SCH ×4 (08:51→20:17)
[2020-12-02 15:58] VITALS: BP 111/65
[2020-12-02] MEDS: ATORVASTATIN CALCIUM 20 MG TABLET PO SCH (20:17)
[2020-12-02] MEDS: traZODone 50 MG TABLET. PO SCH (20:17)
[2020-12-02] MEDS: TAMSULOSIN 0.4 MG CAP.ER.24H. PO SCH (20:17)
--- NOTE | 2020-12-02 22:06 | PDOC ---
Exam Note: Fercho Note: Please also refer to the separate dictated note~for this date of service dictated separately.~Patient seen individually. Discussed the patient with Nursing staff reviewed the chart.~Reviewed interim history and current functioning. Reviewed vital signs,~Labs/ Radiology~and current medications noted below. Continue current treatment with the changes noted in the dictated addendum note Assessment: Vital Signs/I&O: Vital Signs Date Time Temp Pulse Resp B/P (MAP) Pulse Ox O2 Delivery O2 Flow Rate FiO2 12/02/20 15:58 97.3 63 18 111/65 (80) 99 Room Air I & O 12/01/20 12/01/20 12/02/20 15:00 23:00 07:00 Intake Total 720 ml 480 ml Balance 720 ml 480 ml Current Medications: Meds: Current Medications Medications (Trade) Dose Ordered Sig/Ashvin Route PRN Reason Start Time Stop Time Status Last Admin Dose Admin Acetaminophen (Tylenol) 650 mg PRN Q6HRS PRN PO MILD PAIN / TEMP > 100.3'F 08/24/20 18:15 11/14/20 05:44 Multi-Ingredient Ointment (Analgesic [place]) 1 césar PRN QID PRN TP MUSCLE PAIN 08/24/20 18:15 Al Hydroxide/Mg Hydroxide (Mylanta Plus Xs) 15 ml PRN AFTMEALHC PRN PO DYSPEPSIA 08/24/20 18:15 Magnesium Hydroxide (Milk Of Magnesia) 2,400 mg PRN QHS PRN PO CONSTIPATION 08/24/20 18:15 11/10/20 16:58 Aspirin (Aspirin Chewable) 81 mg DAILY PO 08/25/20 09:00 12/02/20 08:51 Cetirizine HCl (ZyrTEC) 10 mg DAILY08 PO 08/25/20 08:00 12/02/20 08:51 Donepezil HCl (Aricept) 23 mg QHS PO 08/24/20 21:00 08/28/20 15:38 DC 08/27/20 20:34 Fluoxetine HCl (PROzac) 20 mg DAILY PO 08/25/20 09:00 12/02/20 08:51 Lorazepam (Ativan) 1 mg PRN Q4HRS PRN PO ANXIETY / AGITATION 08/24/20 18:45 09/04/20 16:12 DC 09/04/20 01:29 Atorvastatin Calcium (Lipitor) 40 mg QHS PO 08/24/20 21:00 12/02/20 20:17 Pantoprazole Sodium (Protonix) 40 mg DAILY08 PO 08/25/20 08:00 12/02/20 08:51 Multivitamins/ Calcium (Thera-M Plus) 1 tab DAILY PO 08/25/20 09:00 12/02/20 08:51 Mupirocin (Bactroban) 1 césar BID92 TP 08/25/20 09:00 09/03/20 12:35 DC 09/01/20 14:00 Fish Oil (Fish Oil) 1,000 mg DAILY PO 08/25/20 09:00 11/08/20 18:17 DC 11/07/20 08:19 Olanzapine (ZyPREXA ZYDIS) 2.5 mg PRN Q2HR PRN PO PSYCHOSIS 08/24/20 19:45 11/16/20 12:58 Sertraline HCl (Zoloft) 25 mg DAILY PO 08/26/20 09:00 08/28/20 21:00 DC 08/28/20 08:37 Sertraline HCl (Zoloft) 50 mg DAILY PO 08/29/20 09:00 09/06/20 18:40 DC 09/04/20 08:58 Tamsulosin HCl (Flomax) 0.4 mg QHS PO 08/28/20 21:00 12/02/20 20:17 Mupirocin (Bactroban) 1 césar PRN BID PRN TP RASH 09/03/20 12:45 Diphenhydramine HCl (Benadryl) 50 mg 1X ONCE PO 09/04/20 21:00 09/04/20 21:01 DC 09/04/20 21:21 Olanzapine (ZyPREXA ZYDIS) 5 mg 1X ONCE PO 09/27/20 18:30 09/27/20 18:31 DC 09/27/20 18:30 Divalproex Sodium (Depakote Sprinkles) 125 mg 0900,1700 PO 09/28/20 17:00 10/12/20 17:08 DC 10/12/20 08:18 Furosemide (Lasix) 80 mg 1X ONCE PO 09/30/20 15:30 09/30/20 15:31 DC 09/30/20 16:00 Furosemide (Lasix) 80 mg DAILY PO 10/01/20 09:00 11/08/20 18:17 DC 11/08/20 08:39 Potassium Chloride (Klor-Con) 20 meq DAILYWBKFT PO 10/01/20 08:00 12/02/20 08:51 Trazodone HCl (Desyrel) 50 mg PRN QHS PRN PO INSOMNIA 10/08/20 16:15 11/07/20 18:18 DC 10/09/20 20:15 Divalproex Sodium (Depakote Sprinkles) 125 mg 0900,1300,1700,2100 PO 10/12/20 17:50 10/21/20 17:01 DC 10/21/20 12:26 Divalproex Sodium (Depakote Sprinkles) 125 mg 1300,1700 PO 10/21/20 17:00 10/25/20 17:17 DC 10/25/20 15:29 Divalproex Sodium (Depakote Sprinkles) 250 mg 0900,2100 PO 10/21/20 21:00 10/25/20 17:17 DC 10/25/20 09:09 Divalproex Sodium (Depakote Sprinkles) 250 mg QID PO 10/25/20 17:15 12/02/20 20:17 Trazodone HCl (Desyrel) 50 mg HS PO 11/07/20 21:00 12/02/20 20:17 Furosemide (Lasix) 40 mg DAILY PO 11/09/20 09:00 12/02/20 08:51 Multi-Ingred Cream/Lotion/Oil/ Oint (Hydrocerin) 1 césar PRN Q1HR PRN TP DRY SKIN / SCALING 11/26/20 16:30 I have reviewed the current psychotropics carefully including drug interactions. Risk benefit ratio favors no change other than as noted in my dictated progress note. Diagnosis: Problems: (1) Impulse control disorder, unspecified (2) Anxiety disorder, unspecified (3) Dementia, vascular, with depression (4) Dementia, vascular, with delusions (5) Dementia in Alzheimer's disease with depression (6) Dementia in Alzheimer's disease with delusions (7) Dementia of the Alzheimer's type with early onset with behavioral disturbance (8) Major neurocognitive disorder VERENA AGUSTIN MD Dec 02, 2020 22:06
[2020-12-03 06:14] VITALS: BP 107/54
[2020-12-03] MEDS: FUROSEMIDE 40 MG TABLET PO SCH (08:39)
[2020-12-03] MEDS: PANTOPRAZOLE 40 MG TABLET. PO SCH (08:39)
[2020-12-03] MEDS: POTASSIUM CHLORIDE 20 MEQ TABLET.ER. PO SCH (08:40)
[2020-12-03] MEDS: CETIRIZINE HCL 10 MG TABLET PO SCH (08:40)
[2020-12-03] MEDS: MULTIVITAMIN with MINERAL TABLET. PO SCH (08:40)
[2020-12-03] MEDS: DIVALPROEX 125 MG CAP.SPRINK PO SCH ×4 (08:40→19:35)
[2020-12-03] MEDS: ASPIRIN CHEWABLE 81 MG TABLET. PO SCH (08:40)
[2020-12-03 15:49] VITALS: BP 124/80
[2020-12-03] MEDS: traZODone 50 MG TABLET. PO SCH (19:34)
[2020-12-03] MEDS: TAMSULOSIN 0.4 MG CAP.ER.24H. PO SCH (19:35)
[2020-12-03] MEDS: ATORVASTATIN CALCIUM 20 MG TABLET PO SCH (19:35)
--- NOTE | 2020-12-03 22:16 | PDOC ---
Exam Note: Fercho Note: Please also refer to the separate dictated note~for this date of service dictated separately. Discussed the patient with Nursing staff reviewed the chart.~Reviewed interim history and current functioning. Reviewed vital signs,~Labs/ Radiology~and current medications noted below. Continue current treatment with the changes noted in the dictated addendum note Assessment: Vital Signs/I&O: Vital Signs Date Time Temp Pulse Resp B/P (MAP) Pulse Ox O2 Delivery O2 Flow Rate FiO2 12/03/20 15:49 97.0 72 18 124/80 (95) 95 Room Air I & O 12/02/20 12/02/20 12/03/20 15:00 23:00 07:00 Intake Total 240 ml 360 ml Balance 240 ml 360 ml Current Medications: Meds: Current Medications Medications (Trade) Dose Ordered Sig/Ashvin Route PRN Reason Start Time Stop Time Status Last Admin Dose Admin Acetaminophen (Tylenol) 650 mg PRN Q6HRS PRN PO MILD PAIN / TEMP > 100.3'F 08/24/20 18:15 11/14/20 05:44 Multi-Ingredient Ointment (Analgesic [place]) 1 césar PRN QID PRN TP MUSCLE PAIN 08/24/20 18:15 Al Hydroxide/Mg Hydroxide (Mylanta Plus Xs) 15 ml PRN AFTMEALHC PRN PO DYSPEPSIA 08/24/20 18:15 Magnesium Hydroxide (Milk Of Magnesia) 2,400 mg PRN QHS PRN PO CONSTIPATION 08/24/20 18:15 11/10/20 16:58 Aspirin (Aspirin Chewable) 81 mg DAILY PO 08/25/20 09:00 12/03/20 08:40 Cetirizine HCl (ZyrTEC) 10 mg DAILY08 PO 08/25/20 08:00 12/03/20 08:40 Donepezil HCl (Aricept) 23 mg QHS PO 08/24/20 21:00 08/28/20 15:38 DC 08/27/20 20:34 Fluoxetine HCl (PROzac) 20 mg DAILY PO 08/25/20 09:00 12/03/20 08:40 Lorazepam (Ativan) 1 mg PRN Q4HRS PRN PO ANXIETY / AGITATION 08/24/20 18:45 09/04/20 16:12 DC 09/04/20 01:29 Atorvastatin Calcium (Lipitor) 40 mg QHS PO 08/24/20 21:00 12/03/20 19:35 Pantoprazole Sodium (Protonix) 40 mg DAILY08 PO 08/25/20 08:00 12/03/20 08:39 Multivitamins/ Calcium (Thera-M Plus) 1 tab DAILY PO 08/25/20 09:00 12/03/20 08:40 Mupirocin (Bactroban) 1 césar BID92 TP 08/25/20 09:00 09/03/20 12:35 DC 09/01/20 14:00 Fish Oil (Fish Oil) 1,000 mg DAILY PO 08/25/20 09:00 11/08/20 18:17 DC 11/07/20 08:19 Olanzapine (ZyPREXA ZYDIS) 2.5 mg PRN Q2HR PRN PO PSYCHOSIS 08/24/20 19:45 11/16/20 12:58 Sertraline HCl (Zoloft) 25 mg DAILY PO 08/26/20 09:00 08/28/20 21:00 DC 08/28/20 08:37 Sertraline HCl (Zoloft) 50 mg DAILY PO 08/29/20 09:00 09/06/20 18:40 DC 09/04/20 08:58 Tamsulosin HCl (Flomax) 0.4 mg QHS PO 08/28/20 21:00 12/03/20 19:35 Mupirocin (Bactroban) 1 césar PRN BID PRN TP RASH 09/03/20 12:45 Diphenhydramine HCl (Benadryl) 50 mg 1X ONCE PO 09/04/20 21:00 09/04/20 21:01 DC 09/04/20 21:21 Olanzapine (ZyPREXA ZYDIS) 5 mg 1X ONCE PO 09/27/20 18:30 09/27/20 18:31 DC 09/27/20 18:30 Divalproex Sodium (Depakote Sprinkles) 125 mg 0900,1700 PO 09/28/20 17:00 10/12/20 17:08 DC 10/12/20 08:18 Furosemide (Lasix) 80 mg 1X ONCE PO 09/30/20 15:30 09/30/20 15:31 DC 09/30/20 16:00 Furosemide (Lasix) 80 mg DAILY PO 10/01/20 09:00 11/08/20 18:17 DC 11/08/20 08:39 Potassium Chloride (Klor-Con) 20 meq DAILYWBKFT PO 10/01/20 08:00 12/03/20 08:40 Trazodone HCl (Desyrel) 50 mg PRN QHS PRN PO INSOMNIA 10/08/20 16:15 11/07/20 18:18 DC 10/09/20 20:15 Divalproex Sodium (Depakote Sprinkles) 125 mg 0900,1300,1700,2100 PO 10/12/20 17:50 10/21/20 17:01 DC 10/21/20 12:26 Divalproex Sodium (Depakote Sprinkles) 125 mg 1300,1700 PO 10/21/20 17:00 10/25/20 17:17 DC 10/25/20 15:29 Divalproex Sodium (Depakote Sprinkles) 250 mg 0900,2100 PO 10/21/20 21:00 10/25/20 17:17 DC 10/25/20 09:09 Divalproex Sodium (Depakote Sprinkles) 250 mg QID PO 10/25/20 17:15 12/03/20 19:35 Trazodone HCl (Desyrel) 50 mg HS PO 11/07/20 21:00 12/03/20 19:34 Furosemide (Lasix) 40 mg DAILY PO 11/09/20 09:00 12/03/20 08:39 Multi-Ingred Cream/Lotion/Oil/ Oint (Hydrocerin) 1 césar PRN Q1HR PRN TP DRY SKIN / SCALING 11/26/20 16:30 I have reviewed the current psychotropics carefully including drug interactions. Risk benefit ratio favors no change other than as noted in my dictated progress note. Diagnosis: Problems: (1) Impulse control disorder, unspecified (2) Anxiety disorder, unspecified (3) Dementia, vascular, with depression (4) Dementia, vascular, with delusions (5) Dementia in Alzheimer's disease with depression (6) Dementia in Alzheimer's disease with delusions (7) Dementia of the Alzheimer's type with early onset with behavioral disturbance (8) Major neurocognitive disorder VERENA AGUSTIN MD Dec 03, 2020 22:16
[2020-12-03] MEDS ORDERED: traZODone 50 MG TABLET. PO PRN (22:30)
[2020-12-04 06:00] VITALS: BP 102/62
--- NOTE | 2020-12-04 06:21 | PDOC ---
Exam Note: Fercho Note: This note is a late entry for 12/02/2020 covers elements not covered in my initial note. Subjective: The patient was seen individually in the evening of 12/02/2020 with Estefanía ABREU, discussed and reviewed the chart. He slept 7-1/2 hours previous night. I met with him in the hallway as the nursing staff was taking him back to his room. He is pleasant, smiling, confused. No agitation noted. Review of Systems: Impaired ambulation in wheelchair. No CV, , pulmonary, eye, ENT system symptoms on review. Mental Status Exam: The patient oriented to himself and situation. Speech is coherent. Abstraction fair. Computation impaired. Language function intact. Mood and affect are improved. No suicidal or homicidal ideation. Laboratory Data: Reviewed. Impression: Major neurocognitive disorder Alzheimer vascular with delusion, depression, behavioral disturbance. Anxiety disorder unspecified. Impulse control disorder unspecified. Plan: Continue current psychotropics from initial note. Assessment: Vital Signs/I&O: Vital Signs Date Time Temp Pulse Resp B/P (MAP) Pulse Ox O2 Delivery O2 Flow Rate FiO2 12/04/20 06:00 97.5 70 18 102/62 (75) 95 12/03/20 15:49 Room Air I & O 12/03/20 12/03/20 12/04/20 15:00 23:00 07:00 Intake Total 720 ml 600 ml Balance 720 ml 600 ml Current Medications: Meds: Current Medications Medications (Trade) Dose Ordered Sig/Ashvin Route PRN Reason Start Time Stop Time Status Last Admin Dose Admin Acetaminophen (Tylenol) 650 mg PRN Q6HRS PRN PO MILD PAIN / TEMP > 100.3'F 08/24/20 18:15 11/14/20 05:44 Multi-Ingredient Ointment (Analgesic [place]) 1 césar PRN QID PRN TP MUSCLE PAIN 08/24/20 18:15 Al Hydroxide/Mg Hydroxide (Mylanta Plus Xs) 15 ml PRN AFTMEALHC PRN PO DYSPEPSIA 08/24/20 18:15 Magnesium Hydroxide (Milk Of Magnesia) 2,400 mg PRN QHS PRN PO CONSTIPATION 08/24/20 18:15 11/10/20 16:58 Aspirin (Aspirin Chewable) 81 mg DAILY PO 08/25/20 09:00 12/03/20 08:40 Cetirizine HCl (ZyrTEC) 10 mg DAILY08 PO 08/25/20 08:00 12/03/20 08:40 Donepezil HCl (Aricept) 23 mg QHS PO 08/24/20 21:00 08/28/20 15:38 DC 08/27/20 20:34 Fluoxetine HCl (PROzac) 20 mg DAILY PO 08/25/20 09:00 12/03/20 08:40 Lorazepam (Ativan) 1 mg PRN Q4HRS PRN PO ANXIETY / AGITATION 08/24/20 18:45 09/04/20 16:12 DC 09/04/20 01:29 Atorvastatin Calcium (Lipitor) 40 mg QHS PO 08/24/20 21:00 12/03/20 19:35 Pantoprazole Sodium (Protonix) 40 mg DAILY08 PO 08/25/20 08:00 12/03/20 08:39 Multivitamins/ Calcium (Thera-M Plus) 1 tab DAILY PO 08/25/20 09:00 12/03/20 08:40 Mupirocin (Bactroban) 1 césar BID92 TP 08/25/20 09:00 09/03/20 12:35 DC 09/01/20 14:00 Fish Oil (Fish Oil) 1,000 mg DAILY PO 08/25/20 09:00 11/08/20 18:17 DC 11/07/20 08:19 Olanzapine (ZyPREXA ZYDIS) 2.5 mg PRN Q2HR PRN PO PSYCHOSIS 08/24/20 19:45 11/16/20 12:58 Sertraline HCl (Zoloft) 25 mg DAILY PO 08/26/20 09:00 08/28/20 21:00 DC 08/28/20 08:37 Sertraline HCl (Zoloft) 50 mg DAILY PO 08/29/20 09:00 09/06/20 18:40 DC 09/04/20 08:58 Tamsulosin HCl (Flomax) 0.4 mg QHS PO 08/28/20 21:00 12/03/20 19:35 Mupirocin (Bactroban) 1 césar PRN BID PRN TP RASH 09/03/20 12:45 Diphenhydramine HCl (Benadryl) 50 mg 1X ONCE PO 09/04/20 21:00 09/04/20 21:01 DC 09/04/20 21:21 Olanzapine (ZyPREXA ZYDIS) 5 mg 1X ONCE PO 09/27/20 18:30 09/27/20 18:31 DC 09/27/20 18:30 Divalproex Sodium (Depakote Sprinkles) 125 mg 0900,1700 PO 09/28/20 17:00 10/12/20 17:08 DC 10/12/20 08:18 Furosemide (Lasix) 80 mg 1X ONCE PO 09/30/20 15:30 09/30/20 15:31 DC 09/30/20 16:00 Furosemide (Lasix) 80 mg DAILY PO 10/01/20 09:00 11/08/20 18:17 DC 11/08/20 08:39 Potassium Chloride (Klor-Con) 20 meq DAILYWBKFT PO 10/01/20 08:00 12/03/20 08:40 Trazodone HCl (Desyrel) 50 mg PRN QHS PRN PO INSOMNIA 10/08/20 16:15 11/07/20 18:18 DC 10/09/20 20:15 Divalproex Sodium (Depakote Sprinkles) 125 mg 0900,1300,1700,2100 PO 10/12/20 17:50 10/21/20 17:01 DC 10/21/20 12:26 Divalproex Sodium (Depakote Sprinkles) 125 mg 1300,1700 PO 10/21/20 17:00 10/25/20 17:17 DC 10/25/20 15:29 Divalproex Sodium (Depakote Sprinkles) 250 mg 0900,2100 PO 10/21/20 21:00 10/25/20 17:17 DC 10/25/20 09:09 Divalproex Sodium (Depakote Sprinkles) 250 mg QID PO 10/25/20 17:15 12/03/20 19:35 Trazodone HCl (Desyrel) 50 mg HS PO 11/07/20 21:00 12/03/20 19:34 Furosemide (Lasix) 40 mg DAILY PO 11/09/20 09:00 12/03/20 08:39 Multi-Ingred Cream/Lotion/Oil/ Oint (Hydrocerin) 1 césar PRN Q1HR PRN TP DRY SKIN / SCALING 11/26/20 16:30 Trazodone HCl (Desyrel) 50 mg PRN QHS PRN PO INSOMNIA 12/03/20 22:30 I have reviewed the current psychotropics carefully including drug interactions. Risk benefit ratio favors no change other than as noted in my dictated progress note. Diagnosis: Problems: (1) Impulse control disorder, unspecified (2) Anxiety disorder, unspecified (3) Dementia, vascular, with depression (4) Dementia, vascular, with delusions (5) Dementia in Alzheimer's disease with depression (6) Dementia in Alzheimer's disease with delusions (7) Dementia of the Alzheimer's type with early onset with behavioral disturbance (8) Major neurocognitive disorder VERENA AGUSTIN MD Dec 04, 2020 06:21
[2020-12-04] MEDS: FUROSEMIDE 40 MG TABLET PO SCH (11:54)
[2020-12-04] MEDS: PANTOPRAZOLE 40 MG TABLET. PO SCH (11:54)
[2020-12-04] MEDS: CETIRIZINE HCL 10 MG TABLET PO SCH (11:54)
[2020-12-04] MEDS: ASPIRIN CHEWABLE 81 MG TABLET. PO SCH (11:55)
[2020-12-04] MEDS: MULTIVITAMIN with MINERAL TABLET. PO SCH (11:55)
[2020-12-04] MEDS: DIVALPROEX 125 MG CAP.SPRINK PO SCH ×4 (11:55→20:05)
[2020-12-04] MEDS: POTASSIUM CHLORIDE 20 MEQ TABLET.ER. PO SCH (11:55)
[2020-12-04 15:54] VITALS: BP 97/57
[2020-12-04] MEDS: traZODone 50 MG TABLET. PO SCH (20:05)
[2020-12-04] MEDS: ATORVASTATIN CALCIUM 20 MG TABLET PO SCH (20:05)
[2020-12-04] MEDS: TAMSULOSIN 0.4 MG CAP.ER.24H. PO SCH (20:05)
[2020-12-05 05:38] VITALS: BP 103/55
[2020-12-05] MEDS: POTASSIUM CHLORIDE 20 MEQ TABLET.ER. PO SCH (08:46)
[2020-12-05] MEDS: DIVALPROEX 125 MG CAP.SPRINK PO SCH ×4 (08:46→20:18)
[2020-12-05] MEDS: PANTOPRAZOLE 40 MG TABLET. PO SCH (08:46)
[2020-12-05] MEDS: MULTIVITAMIN with MINERAL TABLET. PO SCH (08:46)
[2020-12-05] MEDS: FUROSEMIDE 40 MG TABLET PO SCH (08:47)
[2020-12-05] MEDS: ASPIRIN CHEWABLE 81 MG TABLET. PO SCH (08:47)
[2020-12-05] MEDS: CETIRIZINE HCL 10 MG TABLET PO SCH (08:47)
--- NOTE | 2020-12-05 09:38 | PDOC ---
Exam Note: Fercho Note: Late entry for 12/04/2020. Please also refer to the separate dictated note~for this date of service dictated separately.~Patient seen individually. Discussed the patient with Nursing staff reviewed the chart.~Reviewed interim history and current functioning. Reviewed vital signs,~Labs/ Radiology~and current medic ations noted below. Continue current treatment with the changes noted in the dictated addendum note Assessment: Vital Signs/I&O: Vital Signs Date Time Temp Pulse Resp B/P (MAP) Pulse Ox O2 Delivery O2 Flow Rate FiO2 12/05/20 05:38 97.8 57 16 103/55 (71) 95 12/03/20 15:49 Room Air I & O 0 12/04/20 12/04/20 12/05/20 15:00 23:00 07:00 Intake Total 480 ml 360 ml Balance 480 ml 360 ml Current Medications: Meds: Current Medications Medications (Trade) Dose Ordered Sig/Ashvin Route PRN Reason Start Time Stop Time Status Last Admin Dose Admin Acetaminophen (Tylenol) 650 mg PRN Q6HRS PRN PO MILD PAIN / TEMP > 100.3'F 08/24/20 18:15 11/14/20 05:44 Multi-Ingredient Ointment (Analgesic [place]) 1 césar PRN QID PRN TP MUSCLE PAIN 08/24/20 18:15 Al Hydroxide/Mg Hydroxide (Mylanta Plus Xs) 15 ml PRN AFTMEALHC PRN PO DYSPEPSIA 08/24/20 18:15 Magnesium Hydroxide (Milk Of Magnesia) 2,400 mg PRN QHS PRN PO CONSTIPATION 08/24/20 18:15 11/10/20 16:58 Aspirin (Aspirin Chewable) 81 mg DAILY PO 08/25/20 09:00 12/05/20 08:47 Cetirizine HCl (ZyrTEC) 10 mg DAILY08 PO 08/25/20 08:00 12/05/20 08:47 Donepezil HCl (Aricept) 23 mg QHS PO 08/24/20 21:00 08/28/20 15:38 DC 08/27/20 20:34 Fluoxetine HCl (PROzac) 20 mg DAILY PO 08/25/20 09:00 12/05/20 08:47 Lorazepam (Ativan) 1 mg PRN Q4HRS PRN PO ANXIETY / AGITATION 08/24/20 18:45 09/04/20 16:12 DC 09/04/20 01:29 Atorvastatin Calcium (Lipitor) 40 mg QHS PO 08/24/20 21:00 12/04/20 20:05 Pantoprazole Sodium (Protonix) 40 mg DAILY08 PO 08/25/20 08:00 12/05/20 08:46 Multivitamins/ Calcium (Thera-M Plus) 1 tab DAILY PO 08/25/20 09:00 12/05/20 08:46 Mupirocin (Bactroban) 1 césar BID92 TP 08/25/20 09:00 09/03/20 12:35 DC 09/01/20 14:00 Fish Oil (Fish Oil) 1,000 mg DAILY PO 08/25/20 09:00 11/08/20 18:17 DC 11/07/20 08:19 Olanzapine (ZyPREXA ZYDIS) 2.5 mg PRN Q2HR PRN PO PSYCHOSIS 08/24/20 19:45 11/16/20 12:58 Sertraline HCl (Zoloft) 25 mg DAILY PO 08/26/20 09:00 08/28/20 21:00 DC 08/28/20 08:37 Sertraline HCl (Zoloft) 50 mg DAILY PO 08/29/20 09:00 09/06/20 18:40 DC 09/04/20 08:58 Tamsulosin HCl (Flomax) 0.4 mg QHS PO 08/28/20 21:00 12/04/20 20:05 Mupirocin (Bactroban) 1 césar PRN BID PRN TP RASH 09/03/20 12:45 Diphenhydramine HCl (Benadryl) 50 mg 1X ONCE PO 09/04/20 21:00 09/04/20 21:01 DC 09/04/20 21:21 Olanzapine (ZyPREXA ZYDIS) 5 mg 1X ONCE PO 09/27/20 18:30 09/27/20 18:31 DC 09/27/20 18:30 Divalproex Sodium (Depakote Sprinkles) 125 mg 0900,1700 PO 09/28/20 17:00 10/12/20 17:08 DC 10/12/20 08:18 Furosemide (Lasix) 80 mg 1X ONCE PO 09/30/20 15:30 09/30/20 15:31 DC 09/30/20 16:00 Furosemide (Lasix) 80 mg DAILY PO 10/01/20 09:00 11/08/20 18:17 DC 11/08/20 08:39 Potassium Chloride (Klor-Con) 20 meq DAILYWBKFT PO 10/01/20 08:00 12/05/20 08:46 Trazodone HCl (Desyrel) 50 mg PRN QHS PRN PO INSOMNIA 10/08/20 16:15 11/07/20 18:18 DC 10/09/20 20:15 Divalproex Sodium (Depakote Sprinkles) 125 mg 0900,1300,1700,2100 PO 10/12/20 17:50 10/21/20 17:01 DC 10/21/20 12:26 Divalproex Sodium (Depakote Sprinkles) 125 mg 1300,1700 PO 10/21/20 17:00 10/25/20 17:17 DC 10/25/20 15:29 Divalproex Sodium (Depakote Sprinkles) 250 mg 0900,2100 PO 10/21/20 21:00 10/25/20 17:17 DC 10/25/20 09:09 Divalproex Sodium (Depakote Sprinkles) 250 mg QID PO 10/25/20 17:15 12/05/20 08:46 Trazodone HCl (Desyrel) 50 mg HS PO 11/07/20 21:00 12/04/20 20:05 Furosemide (Lasix) 40 mg DAILY PO 11/09/20 09:00 12/05/20 08:47 Multi-Ingred Cream/Lotion/Oil/ Oint (Hydrocerin) 1 césar PRN Q1HR PRN TP DRY SKIN / SCALING 11/26/20 16:30 Trazodone HCl (Desyrel) 50 mg PRN QHS PRN PO INSOMNIA 12/03/20 22:30 I have reviewed the current psychotropics carefully including drug interactions. Risk benefit ratio favors no change other than as noted in my dictated progress note. Diagnosis: Problems: (1) Impulse control disorder, unspecified (2) Anxiety disorder, unspecified (3) Dementia, vascular, with depression (4) Dementia, vascular, with delusions (5) Dementia in Alzheimer's disease with depression (6) Dementia in Alzheimer's disease with delusions (7) Dementia of the Alzheimer's type with early onset with behavioral disturbance (8) Major neurocognitive disorder VERENA AGUSTIN MD Dec 05, 2020 09:38
[2020-12-05 15:42] VITALS: BP 96/56
[2020-12-05] MEDS: TAMSULOSIN 0.4 MG CAP.ER.24H. PO SCH (20:17)
[2020-12-05] MEDS: traZODone 50 MG TABLET. PO SCH (20:17)
[2020-12-05] MEDS: ATORVASTATIN CALCIUM 20 MG TABLET PO SCH (20:17)
--- NOTE | 2020-12-05 22:01 | PDOC ---
Exam Note: Fercho Note: Please also refer to the separate dictated note~for this date of service dictated separately.~Patient seen individually. Discussed the patient with Nursing staff reviewed the chart.~Reviewed interim history and current functioning. Reviewed vital signs,~Labs/ Radiology~and current medications noted below. Continue current treatment with the changes noted in the dictated addendum note Assessment: Vital Signs/I&O: Vital Signs Date Time Temp Pulse Resp B/P (MAP) Pulse Ox O2 Delivery O2 Flow Rate FiO2 12/05/20 15:42 98.4 68 19 96/56 (69) 97 Room Air I & O 12/04/20 12/04/20 12/05/20 15:00 23:00 07:00 Intake Total 480 ml 360 ml Balance 480 ml 360 ml Current Medications: Meds: Current Medications Medications (Trade) Dose Ordered Sig/Ashvin Route PRN Reason Start Time Stop Time Status Last Admin Dose Admin Acetaminophen (Tylenol) 650 mg PRN Q6HRS PRN PO MILD PAIN / TEMP > 100.3'F 08/24/20 18:15 11/14/20 05:44 Multi-Ingredient Ointment (Analgesic [place]) 1 césar PRN QID PRN TP MUSCLE PAIN 08/24/20 18:15 Al Hydroxide/Mg Hydroxide (Mylanta Plus Xs) 15 ml PRN AFTMEALHC PRN PO DYSPEPSIA 08/24/20 18:15 Magnesium Hydroxide (Milk Of Magnesia) 2,400 mg PRN QHS PRN PO CONSTIPATION 08/24/20 18:15 11/10/20 16:58 Aspirin (Aspirin Chewable) 81 mg DAILY PO 08/25/20 09:00 12/05/20 08:47 Cetirizine HCl (ZyrTEC) 10 mg DAILY08 PO 08/25/20 08:00 12/05/20 08:47 Donepezil HCl (Aricept) 23 mg QHS PO 08/24/20 21:00 08/28/20 15:38 DC 08/27/20 20:34 Fluoxetine HCl (PROzac) 20 mg DAILY PO 08/25/20 09:00 12/05/20 08:47 Lorazepam (Ativan) 1 mg PRN Q4HRS PRN PO ANXIETY / AGITATION 08/24/20 18:45 09/04/20 16:12 DC 09/04/20 01:29 Atorvastatin Calcium (Lipitor) 40 mg QHS PO 08/24/20 21:00 12/05/20 20:17 Pantoprazole Sodium (Protonix) 40 mg DAILY08 PO 08/25/20 08:00 12/05/20 08:46 Multivitamins/ Calcium (Thera-M Plus) 1 tab DAILY PO 08/25/20 09:00 12/05/20 08:46 Mupirocin (Bactroban) 1 césar BID92 TP 08/25/20 09:00 09/03/20 12:35 DC 09/01/20 14:00 Fish Oil (Fish Oil) 1,000 mg DAILY PO 08/25/20 09:00 11/08/20 18:17 DC 11/07/20 08:19 Olanzapine (ZyPREXA ZYDIS) 2.5 mg PRN Q2HR PRN PO PSYCHOSIS 08/24/20 19:45 11/16/20 12:58 Sertraline HCl (Zoloft) 25 mg DAILY PO 08/26/20 09:00 08/28/20 21:00 DC 08/28/20 08:37 Sertraline HCl (Zoloft) 50 mg DAILY PO 08/29/20 09:00 09/06/20 18:40 DC 09/04/20 08:58 Tamsulosin HCl (Flomax) 0.4 mg QHS PO 08/28/20 21:00 12/05/20 20:17 Mupirocin (Bactroban) 1 césar PRN BID PRN TP RASH 09/03/20 12:45 Diphenhydramine HCl (Benadryl) 50 mg 1X ONCE PO 09/04/20 21:00 09/04/20 21:01 DC 09/04/20 21:21 Olanzapine (ZyPREXA ZYDIS) 5 mg 1X ONCE PO 09/27/20 18:30 09/27/20 18:31 DC 09/27/20 18:30 Divalproex Sodium (Depakote Sprinkles) 125 mg 0900,1700 PO 09/28/20 17:00 10/12/20 17:08 DC 10/12/20 08:18 Furosemide (Lasix) 80 mg 1X ONCE PO 09/30/20 15:30 09/30/20 15:31 DC 09/30/20 16:00 Furosemide (Lasix) 80 mg DAILY PO 10/01/20 09:00 11/08/20 18:17 DC 11/08/20 08:39 Potassium Chloride (Klor-Con) 20 meq DAILYWBKFT PO 10/01/20 08:00 12/05/20 08:46 Trazodone HCl (Desyrel) 50 mg PRN QHS PRN PO INSOMNIA 10/08/20 16:15 11/07/20 18:18 DC 10/09/20 20:15 Divalproex Sodium (Depakote Sprinkles) 125 mg 0900,1300,1700,2100 PO 10/12/20 17:50 10/21/20 17:01 DC 10/21/20 12:26 Divalproex Sodium (Depakote Sprinkles) 125 mg 1300,1700 PO 10/21/20 17:00 10/25/20 17:17 DC 10/25/20 15:29 Divalproex Sodium (Depakote Sprinkles) 250 mg 0900,2100 PO 10/21/20 21:00 10/25/20 17:17 DC 10/25/20 09:09 Divalproex Sodium (Depakote Sprinkles) 250 mg QID PO 10/25/20 17:15 12/05/20 20:18 Trazodone HCl (Desyrel) 50 mg HS PO 11/07/20 21:00 12/05/20 20:17 Furosemide (Lasix) 40 mg DAILY PO 11/09/20 09:00 12/05/20 08:47 Multi-Ingred Cream/Lotion/Oil/ Oint (Hydrocerin) 1 césar PRN Q1HR PRN TP DRY SKIN / SCALING 11/26/20 16:30 Trazodone HCl (Desyrel) 50 mg PRN QHS PRN PO INSOMNIA 12/03/20 22:30 I have reviewed the current psychotropics carefully including drug interactions. Risk benefit ratio favors no change other than as noted in my dictated progress note. Diagnosis: Problems: (1) Impulse control disorder, unspecified (2) Anxiety disorder, unspecified (3) Dementia, vascular, with depression (4) Dementia, vascular, with delusions (5) Dementia in Alzheimer's disease with depression (6) Dementia in Alzheimer's disease with delusions (7) Dementia of the Alzheimer's type with early onset with behavioral disturbance (8) Major neurocognitive disorder VERENA AGUSTIN MD Dec 05, 2020 22:01
[2020-12-06 05:34] VITALS: BP 107/70
[2020-12-06] MEDS: PANTOPRAZOLE 40 MG TABLET. PO SCH (08:36)
[2020-12-06] MEDS: ASPIRIN CHEWABLE 81 MG TABLET. PO SCH (08:36)
[2020-12-06] MEDS: CETIRIZINE HCL 10 MG TABLET PO SCH (08:36)
[2020-12-06] MEDS: MULTIVITAMIN with MINERAL TABLET. PO SCH (08:36)
[2020-12-06] MEDS: DIVALPROEX 125 MG CAP.SPRINK PO SCH ×4 (08:36→20:00)
[2020-12-06] MEDS: POTASSIUM CHLORIDE 20 MEQ TABLET.ER. PO SCH (08:36)
[2020-12-06] MEDS: FUROSEMIDE 40 MG TABLET PO SCH (08:37)
[2020-12-06 13:53] LABS: BASO # 0.1 x10^3/uL (0.0-0.2); BASO % 1 % (0-3); EOS # 0.3 x10^3/uL (0.0-0.7); EOS % 4 % (0-3); HEMATOCRIT 37.7 % (39.0-53.0); HEMOGLOBIN 12.5 g/dL (13.0-17.5); LYMPH % 14 % (24-48); MEAN CORPUSCULAR HEMOGLOBIN 29 pg (25-35); MEAN CORPUSCULAR HGB CONC 33 g/dL (31-37); MEAN CORPUSCULAR VOLUME 89 fL (79-100); MONO # 0.7 x10^3/uL (0.0-1.1); MONO % 9 % (0-9); NEUT # 5.3 x10^3uL (1.8-7.7); NEUT % 72 % (31-73); PLATELET COUNT 195 x10^3/uL (140-400); RED BLOOD COUNT 4.25 x10^6/uL (4.30-5.70); RED CELL DISTRIBUTION WIDTH 16.9 % (11.5-14.5); WHITE BLOOD COUNT 7.3 x10^3/uL (4.0-11.0)
[2020-12-06 14:08] LABS: ALBUMIN 3.3 g/dL (3.4-5.0); ALBUMIN/GLOBULIN RATIO 1.1 (1.0-1.7); CALCIUM 8.1 mg/dL (8.5-10.1); CREATININE 1.7 mg/dL (0.7-1.3); GFR 39.7; POTASSIUM 3.9 mmol/L (3.5-5.1); TOTAL BILIRUBIN 0.7 mg/dL (0.2-1.0); TOTAL PROTEIN 6.4 g/dL (6.4-8.2)
[2020-12-06 15:23] VITALS: BP 101/67
[2020-12-06] MEDS: TAMSULOSIN 0.4 MG CAP.ER.24H. PO SCH (20:00)
[2020-12-06] MEDS: ATORVASTATIN CALCIUM 20 MG TABLET PO SCH (20:00)
[2020-12-06] MEDS: traZODone 50 MG TABLET. PO SCH (20:01)
--- NOTE | 2020-12-06 22:02 | PDOC ---
Exam Note: Fercho Note: This note is a late entry for 12/03/2020 covers elements not covered in my initial note. Subjective: The patient was reviewed on telehealth rounds in the evening of 12/03/2020 with Estefanía ABREU due to COVID-19 pandemic, discussed and reviewed the chart. He slept 4 hours previous night. He wakes up at night, somewhat anxious and we will repeat the trazodone. Review of Systems: Impaired ambulation in wheelchair. No CV, , pulmonary, eye, ENT system symptoms on review per nursing report. Mental Status Exam: The patient oriented to himself and situation. Insight and judgment, recent and remote memory, attention and concentration, fund of knowledge is poor consistent with his diagnoses. Laboratory Data: Reviewed. Impression: Major neurocognitive disorder Alzheimer vascular with delusion, depression, behavioral disturbance. Anxiety disorder unspecified. Impulse control disorder unspecified. Plan: Continue current psychotropics from initial note. Assessment: Vital Signs/I&O: Vital Signs Date Time Temp Pulse Resp B/P (MAP) Pulse Ox O2 Delivery O2 Flow Rate FiO2 12/06/20 15:23 97.7 79 16 101/67 (78) 95 Room Air I & O 12/05/20 12/05/20 12/06/20 15:00 23:00 07:00 Intake Total 720 ml 240 ml Balance 720 ml 240 ml Labs: Laboratory Tests Test 12/06/20 13:12 White Blood Count 7.3 x10^3/uL (4.0-11.0) Red Blood Count 4.25 x10^6/uL (4.30-5.70) L Hemoglobin 12.5 g/dL (13.0-17.5) L Hematocrit 37.7 % (39.0-53.0) L Mean Corpuscular Volume 89 fL (79-100) Mean Corpuscular Hemoglobin 29 pg (25-35) Mean Corpuscular Hemoglobin Concent 33 g/dL (31-37) Red Cell Distribution Width 16.9 % (11.5-14.5) H Platelet Count 195 x10^3/uL (140-400) Neutrophils (%) (Auto) 72 % (31-73) Lymphocytes (%) (Auto) 14 % (24-48) L Monocytes (%) (Auto) 9 % (0-9) Eosinophils (%) (Auto) 4 % (0-3) H Basophils (%) (Auto) 1 % (0-3) Neutrophils # (Auto) 5.3 x10^3uL (1.8-7.7) Lymphocytes # (Auto) 1.0 x10^3/uL (1.0-4.8) Monocytes # (Auto) 0.7 x10^3/uL (0.0-1.1) Eosinophils # (Auto) 0.3 x10^3/uL (0.0-0.7) Basophils # (Auto) 0.1 x10^3/uL (0.0-0.2) Sodium Level 144 mmol/L (136-145) Potassium Level 3.9 mmol/L (3.5-5.1) Chloride Level 106 mmol/L (98-107) Carbon Dioxide Level 30 mmol/L (21-32) Anion Gap 8 (6-14) Blood Urea Nitrogen 34 mg/dL (8-26) H Creatinine 1.7 mg/dL (0.7-1.3) H Estimated GFR (Cockcroft-Gault) 39.7 BUN/Creatinine Ratio 20 (6-20) Glucose Level 120 mg/dL (70-99) H Calcium Level 8.1 mg/dL (8.5-10.1) L Total Bilirubin 0.7 mg/dL (0.2-1.0) Aspartate Amino Transferase (AST) 22 U/L (15-37) Alanine Aminotransferase (ALT) 25 U/L (16-63) Alkaline Phosphatase 53 U/L (46-116) Total Protein 6.4 g/dL (6.4-8.2) Albumin 3.3 g/dL (3.4-5.0) L Albumin/Globulin Ratio 1.1 (1.0-1.7) Current Medications: Meds: Laboratory Tests Test 12/06/20 13:12 White Blood Count 7.3 x10^3/uL Red Blood Count 4.25 x10^6/uL Hemoglobin 12.5 g/dL Hematocrit 37.7 % Mean Corpuscular Volume 89 fL Mean Corpuscular Hemoglobin 29 pg Mean Corpuscular Hemoglobin Concent 33 g/dL Red Cell Distribution Width 16.9 % Platelet Count 195 x10^3/uL Neutrophils (%) (Auto) 72 % Lymphocytes (%) (Auto) 14 % Monocytes (%) (Auto) 9 % Eosinophils (%) (Auto) 4 % Basophils (%) (Auto) 1 % Neutrophils # (Auto) 5.3 x10^3uL Lymphocytes # (Auto) 1.0 x10^3/uL Monocytes # (Auto) 0.7 x10^3/uL Eosinophils # (Auto) 0.3 x10^3/uL Basophils # (Auto) 0.1 x10^3/uL Sodium Level 144 mmol/L Potassium Level 3.9 mmol/L Chloride Level 106 mmol/L Carbon Dioxide Level 30 mmol/L Anion Gap 8 Blood Urea Nitrogen 34 mg/dL Creatinine 1.7 mg/dL Estimated GFR (Cockcroft-Gault) 39.7 BUN/Creatinine Ratio 20 Glucose Level 120 mg/dL Calcium Level 8.1 mg/dL Total Bilirubin 0.7 mg/dL Aspartate Amino Transf (AST/SGOT) 22 U/L Alanine Aminotransferase (ALT/SGPT) 25 U/L Alkaline Phosphatase 53 U/L Total Protein 6.4 g/dL Albumin 3.3 g/dL Albumin/Globulin Ratio 1.1 Current Medications Medications (Trade) Dose Ordered Sig/Ashvin Route PRN Reason Start Time Stop Time Status Last Admin Dose Admin Acetaminophen (Tylenol) 650 mg PRN Q6HRS PRN PO MILD PAIN / TEMP > 100.3'F 08/24/20 18:15 11/14/20 05:44 Multi-Ingredient Ointment (Analgesic [place]) 1 césar PRN QID PRN TP MUSCLE PAIN 08/24/20 18:15 Al Hydroxide/Mg Hydroxide (Mylanta Plus Xs) 15 ml PRN AFTMEALHC PRN PO DYSPEPSIA 08/24/20 18:15 Magnesium Hydroxide (Milk Of Magnesia) 2,400 mg PRN QHS PRN PO CONSTIPATION 08/24/20 18:15 11/10/20 16:58 Aspirin (Aspirin Chewable) 81 mg DAILY PO 08/25/20 09:00 12/06/20 08:36 Cetirizine HCl (ZyrTEC) 10 mg DAILY08 PO 08/25/20 08:00 12/06/20 08:36 Donepezil HCl (Aricept) 23 mg QHS PO 08/24/20 21:00 08/28/20 15:38 DC 08/27/20 20:34 Fluoxetine HCl (PROzac) 20 mg DAILY PO 08/25/20 09:00 12/06/20 08:36 Lorazepam (Ativan) 1 mg PRN Q4HRS PRN PO ANXIETY / AGITATION 08/24/20 18:45 09/04/20 16:12 DC 09/04/20 01:29 Atorvastatin Calcium (Lipitor) 40 mg QHS PO 08/24/20 21:00 12/06/20 20:00 Pantoprazole Sodium (Protonix) 40 mg DAILY08 PO 08/25/20 08:00 12/06/20 08:36 Multivitamins/ Calcium (Thera-M Plus) 1 tab DAILY PO 08/25/20 09:00 12/06/20 08:36 Mupirocin (Bactroban) 1 césar BID92 TP 08/25/20 09:00 09/03/20 12:35 DC 09/01/20 14:00 Fish Oil (Fish Oil) 1,000 mg DAILY PO 08/25/20 09:00 11/08/20 18:17 DC 11/07/20 08:19 Olanzapine (ZyPREXA ZYDIS) 2.5 mg PRN Q2HR PRN PO PSYCHOSIS 08/24/20 19:45 11/16/20 12:58 Sertraline HCl (Zoloft) 25 mg DAILY PO 08/26/20 09:00 08/28/20 21:00 DC 08/28/20 08:37 Sertraline HCl (Zoloft) 50 mg DAILY PO 08/29/20 09:00 09/06/20 18:40 DC 09/04/20 08:58 Tamsulosin HCl (Flomax) 0.4 mg QHS PO 08/28/20 21:00 12/06/20 20:00 Mupirocin (Bactroban) 1 césar PRN BID PRN TP RASH 09/03/20 12:45 Diphenhydramine HCl (Benadryl) 50 mg 1X ONCE PO 09/04/20 21:00 09/04/20 21:01 DC 09/04/20 21:21 Olanzapine (ZyPREXA ZYDIS) 5 mg 1X ONCE PO 09/27/20 18:30 09/27/20 18:31 DC 09/27/20 18:30 Divalproex Sodium (Depakote Sprinkles) 125 mg 0900,1700 PO 09/28/20 17:00 10/12/20 17:08 DC 10/12/20 08:18 Furosemide (Lasix) 80 mg 1X ONCE PO 09/30/20 15:30 09/30/20 15:31 DC 09/30/20 16:00 Furosemide (Lasix) 80 mg DAILY PO 10/01/20 09:00 11/08/20 18:17 DC 11/08/20 08:39 Potassium Chloride (Klor-Con) 20 meq DAILYWBKFT PO 10/01/20 08:00 12/06/20 08:36 Trazodone HCl (Desyrel) 50 mg PRN QHS PRN PO INSOMNIA 10/08/20 16:15 11/07/20 18:18 DC 10/09/20 20:15 Divalproex Sodium (Depakote Sprinkles) 125 mg 0900,1300,1700,2100 PO 10/12/20 17:50 10/21/20 17:01 DC 10/21/20 12:26 Divalproex Sodium (Depakote Sprinkles) 125 mg 1300,1700 PO 10/21/20 17:00 10/25/20 17:17 DC 10/25/20 15:29 Divalproex Sodium (Depakote Sprinkles) 250 mg 0900,2100 PO 10/21/20 21:00 10/25/20 17:17 DC 10/25/20 09:09 Divalproex Sodium (Depakote Sprinkles) 250 mg QID PO 10/25/20 17:15 12/06/20 20:00 Trazodone HCl (Desyrel) 50 mg HS PO 11/07/20 21:00 12/06/20 20:01 Furosemide (Lasix) 40 mg DAILY PO 11/09/20 09:00 12/06/20 08:37 Multi-Ingred Cream/Lotion/Oil/ Oint (Hydrocerin) 1 césar PRN Q1HR PRN TP DRY SKIN / SCALING 11/26/20 16:30 Trazodone HCl (Desyrel) 50 mg PRN QHS PRN PO INSOMNIA 12/03/20 22:30 I have reviewed the current psychotropics carefully including drug interactions. Risk benefit ratio favors no change other than as noted in my dictated progress note. Diagnosis: Problems: (1) Impulse control disorder, unspecified (2) Anxiety disorder, unspecified (3) Dementia, vascular, with depression (4) Dementia, vascular, with delusions (5) Dementia in Alzheimer's disease with depression (6) Dementia in Alzheimer's disease with delusions (7) Dementia of the Alzheimer's type with early onset with behavioral disturbance (8) Major neurocognitive disorder VERENA AGUSTIN MD Dec 06, 2020 22:02
--- NOTE | 2020-12-06 22:16 | PDOC ---
Exam Note: Fercho Note: This note is a late entry for 12/04/2020 covers elements not covered in my initial note. Subjective: The patient was seen on video telehealth services in the evening of 12/04/2020 with Brittany ABREU due to COVID-19 pandemic, discussed and reviewed the chart. He slept 8 hours previous night. He did well previous night. Review of Systems: Impaired ambulation in wheelchair. No CV, , pulmonary, eye, ENT system symptoms on review. Mental Status Exam: The patient oriented to himself and situation. He is pleasant, confused, smiling as I met with him. Insight and judgment, recent and remote memory, attention and concentration, fund of knowledge is poor consistent with his diagnoses. Laboratory Data: Reviewed. Impression: Major neurocognitive disorder Alzheimer vascular with delusion, depression, behavioral disturbance. Anxiety disorder unspecified. Impulse control disorder unspecified. Plan: Continue current psychotropics from initial note. Assessment: Vital Signs/I&O: Vital Signs Date Time Temp Pulse Resp B/P (MAP) Pulse Ox O2 Delivery O2 Flow Rate FiO2 12/06/20 15:23 97.7 79 16 101/67 (78) 95 Room Air I & O 12/05/20 12/05/20 12/06/20 14:59 22:59 06:59 Intake Total 720 ml 240 ml Balance 720 ml 240 ml Labs: Laboratory Tests Test 12/06/20 13:12 White Blood Count 7.3 x10^3/uL (4.0-11.0) Red Blood Count 4.25 x10^6/uL (4.30-5.70) L Hemoglobin 12.5 g/dL (13.0-17.5) L Hematocrit 37.7 % (39.0-53.0) L Mean Corpuscular Volume 89 fL (79-100) Mean Corpuscular Hemoglobin 29 pg (25-35) Mean Corpuscular Hemoglobin Concent 33 g/dL (31-37) Red Cell Distribution Width 16.9 % (11.5-14.5) H Platelet Count 195 x10^3/uL (140-400) Neutrophils (%) (Auto) 72 % (31-73) Lymphocytes (%) (Auto) 14 % (24-48) L Monocytes (%) (Auto) 9 % (0-9) Eosinophils (%) (Auto) 4 % (0-3) H Basophils (%) (Auto) 1 % (0-3) Neutrophils # (Auto) 5.3 x10^3uL (1.8-7.7) Lymphocytes # (Auto) 1.0 x10^3/uL (1.0-4.8) Monocytes # (Auto) 0.7 x10^3/uL (0.0-1.1) Eosinophils # (Auto) 0.3 x10^3/uL (0.0-0.7) Basophils # (Auto) 0.1 x10^3/uL (0.0-0.2) Sodium Level 144 mmol/L (136-145) Potassium Level 3.9 mmol/L (3.5-5.1) Chloride Level 106 mmol/L (98-107) Carbon Dioxide Level 30 mmol/L (21-32) Anion Gap 8 (6-14) Blood Urea Nitrogen 34 mg/dL (8-26) H Creatinine 1.7 mg/dL (0.7-1.3) H Estimated GFR (Cockcroft-Gault) 39.7 BUN/Creatinine Ratio 20 (6-20) Glucose Level 120 mg/dL (70-99) H Calcium Level 8.1 mg/dL (8.5-10.1) L Total Bilirubin 0.7 mg/dL (0.2-1.0) Aspartate Amino Transferase (AST) 22 U/L (15-37) Alanine Aminotransferase (ALT) 25 U/L (16-63) Alkaline Phosphatase 53 U/L (46-116) Total Protein 6.4 g/dL (6.4-8.2) Albumin 3.3 g/dL (3.4-5.0) L Albumin/Globulin Ratio 1.1 (1.0-1.7) Current Medications: Meds: Laboratory Tests Test 12/06/20 13:12 White Blood Count 7.3 x10^3/uL Red Blood Count 4.25 x10^6/uL Hemoglobin 12.5 g/dL Hematocrit 37.7 % Mean Corpuscular Volume 89 fL Mean Corpuscular Hemoglobin 29 pg Mean Corpuscular Hemoglobin Concent 33 g/dL Red Cell Distribution Width 16.9 % Platelet Count 195 x10^3/uL Neutrophils (%) (Auto) 72 % Lymphocytes (%) (Auto) 14 % Monocytes (%) (Auto) 9 % Eosinophils (%) (Auto) 4 % Basophils (%) (Auto) 1 % Neutrophils # (Auto) 5.3 x10^3uL Lymphocytes # (Auto) 1.0 x10^3/uL Monocytes # (Auto) 0.7 x10^3/uL Eosinophils # (Auto) 0.3 x10^3/uL Basophils # (Auto) 0.1 x10^3/uL Sodium Level 144 mmol/L Potassium Level 3.9 mmol/L Chloride Level 106 mmol/L Carbon Dioxide Level 30 mmol/L Anion Gap 8 Blood Urea Nitrogen 34 mg/dL Creatinine 1.7 mg/dL Estimated GFR (Cockcroft-Gault) 39.7 BUN/Creatinine Ratio 20 Glucose Level 120 mg/dL Calcium Level 8.1 mg/dL Total Bilirubin 0.7 mg/dL Aspartate Amino Transf (AST/SGOT) 22 U/L Alanine Aminotransferase (ALT/SGPT) 25 U/L Alkaline Phosphatase 53 U/L Total Protein 6.4 g/dL Albumin 3.3 g/dL Albumin/Globulin Ratio 1.1 Current Medications Medications (Trade) Dose Ordered Sig/Ashvin Route PRN Reason Start Time Stop Time Status Last Admin Dose Admin Acetaminophen (Tylenol) 650 mg PRN Q6HRS PRN PO MILD PAIN / TEMP > 100.3'F 08/24/20 18:15 11/14/20 05:44 Multi-Ingredient Ointment (Analgesic [place]) 1 césar PRN QID PRN TP MUSCLE PAIN 08/24/20 18:15 Al Hydroxide/Mg Hydroxide (Mylanta Plus Xs) 15 ml PRN AFTMEALHC PRN PO DYSPEPSIA 08/24/20 18:15 Magnesium Hydroxide (Milk Of Magnesia) 2,400 mg PRN QHS PRN PO CONSTIPATION 08/24/20 18:15 11/10/20 16:58 Aspirin (Aspirin Chewable) 81 mg DAILY PO 08/25/20 09:00 12/06/20 08:36 Cetirizine HCl (ZyrTEC) 10 mg DAILY08 PO 08/25/20 08:00 12/06/20 08:36 Donepezil HCl (Aricept) 23 mg QHS PO 08/24/20 21:00 08/28/20 15:38 DC 08/27/20 20:34 Fluoxetine HCl (PROzac) 20 mg DAILY PO 08/25/20 09:00 12/06/20 08:36 Lorazepam (Ativan) 1 mg PRN Q4HRS PRN PO ANXIETY / AGITATION 08/24/20 18:45 09/04/20 16:12 DC 09/04/20 01:29 Atorvastatin Calcium (Lipitor) 40 mg QHS PO 08/24/20 21:00 12/06/20 20:00 Pantoprazole Sodium (Protonix) 40 mg DAILY08 PO 08/25/20 08:00 12/06/20 08:36 Multivitamins/ Calcium (Thera-M Plus) 1 tab DAILY PO 08/25/20 09:00 12/06/20 08:36 Mupirocin (Bactroban) 1 césar BID92 TP 08/25/20 09:00 09/03/20 12:35 DC 09/01/20 14:00 Fish Oil (Fish Oil) 1,000 mg DAILY PO 08/25/20 09:00 11/08/20 18:17 DC 11/07/20 08:19 Olanzapine (ZyPREXA ZYDIS) 2.5 mg PRN Q2HR PRN PO PSYCHOSIS 08/24/20 19:45 11/16/20 12:58 Sertraline HCl (Zoloft) 25 mg DAILY PO 08/26/20 09:00 08/28/20 21:00 DC 08/28/20 08:37 Sertraline HCl (Zoloft) 50 mg DAILY PO 08/29/20 09:00 09/06/20 18:40 DC 09/04/20 08:58 Tamsulosin HCl (Flomax) 0.4 mg QHS PO 08/28/20 21:00 12/06/20 20:00 Mupirocin (Bactroban) 1 césar PRN BID PRN TP RASH 09/03/20 12:45 Diphenhydramine HCl (Benadryl) 50 mg 1X ONCE PO 09/04/20 21:00 09/04/20 21:01 DC 09/04/20 21:21 Olanzapine (ZyPREXA ZYDIS) 5 mg 1X ONCE PO 09/27/20 18:30 09/27/20 18:31 DC 09/27/20 18:30 Divalproex Sodium (Depakote Sprinkles) 125 mg 0900,1700 PO 09/28/20 17:00 10/12/20 17:08 DC 10/12/20 08:18 Furosemide (Lasix) 80 mg 1X ONCE PO 09/30/20 15:30 09/30/20 15:31 DC 09/30/20 16:00 Furosemide (Lasix) 80 mg DAILY PO 10/01/20 09:00 11/08/20 18:17 DC 11/08/20 08:39 Potassium Chloride (Klor-Con) 20 meq DAILYWBKFT PO 10/01/20 08:00 12/06/20 08:36 Trazodone HCl (Desyrel) 50 mg PRN QHS PRN PO INSOMNIA 10/08/20 16:15 11/07/20 18:18 DC 10/09/20 20:15 Divalproex Sodium (Depakote Sprinkles) 125 mg 0900,1300,1700,2100 PO 10/12/20 17:50 10/21/20 17:01 DC 10/21/20 12:26 Divalproex Sodium (Depakote Sprinkles) 125 mg 1300,1700 PO 10/21/20 17:00 10/25/20 17:17 DC 10/25/20 15:29 Divalproex Sodium (Depakote Sprinkles) 250 mg 0900,2100 PO 10/21/20 21:00 10/25/20 17:17 DC 10/25/20 09:09 Divalproex Sodium (Depakote Sprinkles) 250 mg QID PO 10/25/20 17:15 12/06/20 20:00 Trazodone HCl (Desyrel) 50 mg HS PO 11/07/20 21:00 12/06/20 20:01 Furosemide (Lasix) 40 mg DAILY PO 11/09/20 09:00 12/06/20 08:37 Multi-Ingred Cream/Lotion/Oil/ Oint (Hydrocerin) 1 césar PRN Q1HR PRN TP DRY SKIN / SCALING 11/26/20 16:30 Trazodone HCl (Desyrel) 50 mg PRN QHS PRN PO INSOMNIA 12/03/20 22:30 I have reviewed the current psychotropics carefully including drug interactions. Risk benefit ratio favors no change other than as noted in my dictated progress note. Diagnosis: Problems: (1) Impulse control disorder, unspecified (2) Anxiety disorder, unspecified (3) Dementia, vascular, with depression (4) Dementia, vascular, with delusions (5) Dementia in Alzheimer's disease with depression (6) Dementia in Alzheimer's disease with delusions (7) Dementia of the Alzheimer's type with early onset with behavioral disturbance (8) Major neurocognitive disorder VERENA AGUSTIN MD Dec 06, 2020 22:16
--- NOTE | 2020-12-06 22:28 | PDOC ---
Exam Note: Fercho Note: This note is a late entry for 12/05/2020 covers elements not covered in my initial note. Subjective: The patient was seen face to face in the evening of 12/05/2020 with Mera ABREU, discussed and reviewed the chart. He slept 6-1/4 hours previous night. Review of Systems: Impaired ambulation in wheelchair. No CV, , pulmonary, eye, ENT system symptoms on review. Mental Status Exam: The patient oriented to himself and situation. He is pleasant, confused. Insight and judgment, recent and remote memory, attention and concentration, fund of knowledge is poor consistent with his diagnoses. Laboratory Data: Reviewed. Impression: Major neurocognitive disorder Alzheimer vascular with delusion, depression, behavioral disturbance. Anxiety disorder unspecified. Impulse control disorder unspecified. Plan: Continue current psychotropics from initial note. Assessment: Vital Signs/I&O: Vital Signs Date Time Temp Pulse Resp B/P (MAP) Pulse Ox O2 Delivery O2 Flow Rate FiO2 12/06/20 15:23 97.7 79 16 101/67 (78) 95 Room Air I & O 12/05/20 12/05/20 12/06/20 15:00 23:00 07:00 Intake Total 720 ml 240 ml Balance 720 ml 240 ml Labs: Laboratory Tests Test 12/06/20 13:12 White Blood Count 7.3 x10^3/uL (4.0-11.0) Red Blood Count 4.25 x10^6/uL (4.30-5.70) L Hemoglobin 12.5 g/dL (13.0-17.5) L Hematocrit 37.7 % (39.0-53.0) L Mean Corpuscular Volume 89 fL (79-100) Mean Corpuscular Hemoglobin 29 pg (25-35) Mean Corpuscular Hemoglobin Concent 33 g/dL (31-37) Red Cell Distribution Width 16.9 % (11.5-14.5) H Platelet Count 195 x10^3/uL (140-400) Neutrophils (%) (Auto) 72 % (31-73) Lymphocytes (%) (Auto) 14 % (24-48) L Monocytes (%) (Auto) 9 % (0-9) Eosinophils (%) (Auto) 4 % (0-3) H Basophils (%) (Auto) 1 % (0-3) Neutrophils # (Auto) 5.3 x10^3uL (1.8-7.7) Lymphocytes # (Auto) 1.0 x10^3/uL (1.0-4.8) Monocytes # (Auto) 0.7 x10^3/uL (0.0-1.1) Eosinophils # (Auto) 0.3 x10^3/uL (0.0-0.7) Basophils # (Auto) 0.1 x10^3/uL (0.0-0.2) Sodium Level 144 mmol/L (136-145) Potassium Level 3.9 mmol/L (3.5-5.1) Chloride Level 106 mmol/L (98-107) Carbon Dioxide Level 30 mmol/L (21-32) Anion Gap 8 (6-14) Blood Urea Nitrogen 34 mg/dL (8-26) H Creatinine 1.7 mg/dL (0.7-1.3) H Estimated GFR (Cockcroft-Gault) 39.7 BUN/Creatinine Ratio 20 (6-20) Glucose Level 120 mg/dL (70-99) H Calcium Level 8.1 mg/dL (8.5-10.1) L Total Bilirubin 0.7 mg/dL (0.2-1.0) Aspartate Amino Transferase (AST) 22 U/L (15-37) Alanine Aminotransferase (ALT) 25 U/L (16-63) Alkaline Phosphatase 53 U/L (46-116) Total Protein 6.4 g/dL (6.4-8.2) Albumin 3.3 g/dL (3.4-5.0) L Albumin/Globulin Ratio 1.1 (1.0-1.7) Current Medications: Meds: Laboratory Tests Test 12/06/20 13:12 White Blood Count 7.3 x10^3/uL Red Blood Count 4.25 x10^6/uL Hemoglobin 12.5 g/dL Hematocrit 37.7 % Mean Corpuscular Volume 89 fL Mean Corpuscular Hemoglobin 29 pg Mean Corpuscular Hemoglobin Concent 33 g/dL Red Cell Distribution Width 16.9 % Platelet Count 195 x10^3/uL Neutrophils (%) (Auto) 72 % Lymphocytes (%) (Auto) 14 % Monocytes (%) (Auto) 9 % Eosinophils (%) (Auto) 4 % Basophils (%) (Auto) 1 % Neutrophils # (Auto) 5.3 x10^3uL Lymphocytes # (Auto) 1.0 x10^3/uL Monocytes # (Auto) 0.7 x10^3/uL Eosinophils # (Auto) 0.3 x10^3/uL Basophils # (Auto) 0.1 x10^3/uL Sodium Level 144 mmol/L Potassium Level 3.9 mmol/L Chloride Level 106 mmol/L Carbon Dioxide Level 30 mmol/L Anion Gap 8 Blood Urea Nitrogen 34 mg/dL Creatinine 1.7 mg/dL Estimated GFR (Cockcroft-Gault) 39.7 BUN/Creatinine Ratio 20 Glucose Level 120 mg/dL Calcium Level 8.1 mg/dL Total Bilirubin 0.7 mg/dL Aspartate Amino Transf (AST/SGOT) 22 U/L Alanine Aminotransferase (ALT/SGPT) 25 U/L Alkaline Phosphatase 53 U/L Total Protein 6.4 g/dL Albumin 3.3 g/dL Albumin/Globulin Ratio 1.1 Current Medications Medications (Trade) Dose Ordered Sig/Ashvin Route PRN Reason Start Time Stop Time Status Last Admin Dose Admin Acetaminophen (Tylenol) 650 mg PRN Q6HRS PRN PO MILD PAIN / TEMP > 100.3'F 08/24/20 18:15 11/14/20 05:44 Multi-Ingredient Ointment (Analgesic [place]) 1 césar PRN QID PRN TP MUSCLE PAIN 08/24/20 18:15 Al Hydroxide/Mg Hydroxide (Mylanta Plus Xs) 15 ml PRN AFTMEALHC PRN PO DYSPEPSIA 08/24/20 18:15 Magnesium Hydroxide (Milk Of Magnesia) 2,400 mg PRN QHS PRN PO CONSTIPATION 08/24/20 18:15 11/10/20 16:58 Aspirin (Aspirin Chewable) 81 mg DAILY PO 08/25/20 09:00 12/06/20 08:36 Cetirizine HCl (ZyrTEC) 10 mg DAILY08 PO 08/25/20 08:00 12/06/20 08:36 Donepezil HCl (Aricept) 23 mg QHS PO 08/24/20 21:00 08/28/20 15:38 DC 08/27/20 20:34 Fluoxetine HCl (PROzac) 20 mg DAILY PO 08/25/20 09:00 12/06/20 08:36 Lorazepam (Ativan) 1 mg PRN Q4HRS PRN PO ANXIETY / AGITATION 08/24/20 18:45 09/04/20 16:12 DC 09/04/20 01:29 Atorvastatin Calcium (Lipitor) 40 mg QHS PO 08/24/20 21:00 12/06/20 20:00 Pantoprazole Sodium (Protonix) 40 mg DAILY08 PO 08/25/20 08:00 12/06/20 08:36 Multivitamins/ Calcium (Thera-M Plus) 1 tab DAILY PO 08/25/20 09:00 12/06/20 08:36 Mupirocin (Bactroban) 1 césar BID92 TP 08/25/20 09:00 09/03/20 12:35 DC 09/01/20 14:00 Fish Oil (Fish Oil) 1,000 mg DAILY PO 08/25/20 09:00 11/08/20 18:17 DC 11/07/20 08:19 Olanzapine (ZyPREXA ZYDIS) 2.5 mg PRN Q2HR PRN PO PSYCHOSIS 08/24/20 19:45 11/16/20 12:58 Sertraline HCl (Zoloft) 25 mg DAILY PO 08/26/20 09:00 08/28/20 21:00 DC 08/28/20 08:37 Sertraline HCl (Zoloft) 50 mg DAILY PO 08/29/20 09:00 09/06/20 18:40 DC 09/04/20 08:58 Tamsulosin HCl (Flomax) 0.4 mg QHS PO 08/28/20 21:00 12/06/20 20:00 Mupirocin (Bactroban) 1 césar PRN BID PRN TP RASH 09/03/20 12:45 Diphenhydramine HCl (Benadryl) 50 mg 1X ONCE PO 09/04/20 21:00 09/04/20 21:01 DC 09/04/20 21:21 Olanzapine (ZyPREXA ZYDIS) 5 mg 1X ONCE PO 09/27/20 18:30 09/27/20 18:31 DC 09/27/20 18:30 Divalproex Sodium (Depakote Sprinkles) 125 mg 0900,1700 PO 09/28/20 17:00 10/12/20 17:08 DC 10/12/20 08:18 Furosemide (Lasix) 80 mg 1X ONCE PO 09/30/20 15:30 09/30/20 15:31 DC 09/30/20 16:00 Furosemide (Lasix) 80 mg DAILY PO 10/01/20 09:00 11/08/20 18:17 DC 11/08/20 08:39 Potassium Chloride (Klor-Con) 20 meq DAILYWBKFT PO 10/01/20 08:00 12/06/20 08:36 Trazodone HCl (Desyrel) 50 mg PRN QHS PRN PO INSOMNIA 10/08/20 16:15 11/07/20 18:18 DC 10/09/20 20:15 Divalproex Sodium (Depakote Sprinkles) 125 mg 0900,1300,1700,2100 PO 10/12/20 17:50 10/21/20 17:01 DC 10/21/20 12:26 Divalproex Sodium (Depakote Sprinkles) 125 mg 1300,1700 PO 10/21/20 17:00 10/25/20 17:17 DC 10/25/20 15:29 Divalproex Sodium (Depakote Sprinkles) 250 mg 0900,2100 PO 10/21/20 21:00 10/25/20 17:17 DC 10/25/20 09:09 Divalproex Sodium (Depakote Sprinkles) 250 mg QID PO 10/25/20 17:15 12/06/20 20:00 Trazodone HCl (Desyrel) 50 mg HS PO 11/07/20 21:00 12/06/20 20:01 Furosemide (Lasix) 40 mg DAILY PO 11/09/20 09:00 12/06/20 08:37 Multi-Ingred Cream/Lotion/Oil/ Oint (Hydrocerin) 1 césar PRN Q1HR PRN TP DRY SKIN / SCALING 11/26/20 16:30 Trazodone HCl (Desyrel) 50 mg PRN QHS PRN PO INSOMNIA 12/03/20 22:30 I have reviewed the current psychotropics carefully including drug interactions. Risk benefit ratio favors no change other than as noted in my dictated progress note. 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
--- NOTE | 2020-12-06 22:28 | PDOC ---
Exam Note: Fercho Note: Please also refer to the separate dictated note~for this date of service dictated separately.~Patient seen individually. Discussed the patient with Nursing staff reviewed the chart.~Reviewed interim history and current functioning. Reviewed vital signs,~Labs/ Radiology~and current medications noted below. Continue current treatment with the changes noted in the dictated addendum note Assessment: Vital Signs/I&O: Vital Signs Date Time Temp Pulse Resp B/P (MAP) Pulse Ox O2 Delivery O2 Flow Rate FiO2 12/06/20 15:23 97.7 79 16 101/67 (78) 95 Room Air I & O 12/05/20 12/05/20 12/06/20 15:00 23:00 07:00 Intake Total 720 ml 240 ml Balance 720 ml 240 ml Labs: Laboratory Tests Test 12/06/20 13:12 White Blood Count 7.3 x10^3/uL (4.0-11.0) Red Blood Count 4.25 x10^6/uL (4.30-5.70) L Hemoglobin 12.5 g/dL (13.0-17.5) L Hematocrit 37.7 % (39.0-53.0) L Mean Corpuscular Volume 89 fL (79-100) Mean Corpuscular Hemoglobin 29 pg (25-35) Mean Corpuscular Hemoglobin Concent 33 g/dL (31-37) Red Cell Distribution Width 16.9 % (11.5-14.5) H Platelet Count 195 x10^3/uL (140-400) Neutrophils (%) (Auto) 72 % (31-73) Lymphocytes (%) (Auto) 14 % (24-48) L Monocytes (%) (Auto) 9 % (0-9) Eosinophils (%) (Auto) 4 % (0-3) H Basophils (%) (Auto) 1 % (0-3) Neutrophils # (Auto) 5.3 x10^3uL (1.8-7.7) Lymphocytes # (Auto) 1.0 x10^3/uL (1.0-4.8) Monocytes # (Auto) 0.7 x10^3/uL (0.0-1.1) Eosinophils # (Auto) 0.3 x10^3/uL (0.0-0.7) Basophils # (Auto) 0.1 x10^3/uL (0.0-0.2) Sodium Level 144 mmol/L (136-145) Potassium Level 3.9 mmol/L (3.5-5.1) Chloride Level 106 mmol/L (98-107) Carbon Dioxide Level 30 mmol/L (21-32) Anion Gap 8 (6-14) Blood Urea Nitrogen 34 mg/dL (8-26) H Creatinine 1.7 mg/dL (0.7-1.3) H Estimated GFR (Cockcroft-Gault) 39.7 BUN/Creatinine Ratio 20 (6-20) Glucose Level 120 mg/dL (70-99) H Calcium Level 8.1 mg/dL (8.5-10.1) L Total Bilirubin 0.7 mg/dL (0.2-1.0) Aspartate Amino Transferase (AST) 22 U/L (15-37) Alanine Aminotransferase (ALT) 25 U/L (16-63) Alkaline Phosphatase 53 U/L (46-116) Total Protein 6.4 g/dL (6.4-8.2) Albumin 3.3 g/dL (3.4-5.0) L Albumin/Globulin Ratio 1.1 (1.0-1.7) Current Medications: Meds: Laboratory Tests Test 12/06/20 13:12 White Blood Count 7.3 x10^3/uL Red Blood Count 4.25 x10^6/uL Hemoglobin 12.5 g/dL Hematocrit 37.7 % Mean Corpuscular Volume 89 fL Mean Corpuscular Hemoglobin 29 pg Mean Corpuscular Hemoglobin Concent 33 g/dL Red Cell Distribution Width 16.9 % Platelet Count 195 x10^3/uL Neutrophils (%) (Auto) 72 % Lymphocytes (%) (Auto) 14 % Monocytes (%) (Auto) 9 % Eosinophils (%) (Auto) 4 % Basophils (%) (Auto) 1 % Neutrophils # (Auto) 5.3 x10^3uL Lymphocytes # (Auto) 1.0 x10^3/uL Monocytes # (Auto) 0.7 x10^3/uL Eosinophils # (Auto) 0.3 x10^3/uL Basophils # (Auto) 0.1 x10^3/uL Sodium Level 144 mmol/L Potassium Level 3.9 mmol/L Chloride Level 106 mmol/L Carbon Dioxide Level 30 mmol/L Anion Gap 8 Blood Urea Nitrogen 34 mg/dL Creatinine 1.7 mg/dL Estimated GFR (Cockcroft-Gault) 39.7 BUN/Creatinine Ratio 20 Glucose Level 120 mg/dL Calcium Level 8.1 mg/dL Total Bilirubin 0.7 mg/dL Aspartate Amino Transf (AST/SGOT) 22 U/L Alanine Aminotransferase (ALT/SGPT) 25 U/L Alkaline Phosphatase 53 U/L Total Protein 6.4 g/dL Albumin 3.3 g/dL Albumin/Globulin Ratio 1.1 Current Medications Medications (Trade) Dose Ordered Sig/Ashvin Route PRN Reason Start Time Stop Time Status Last Admin Dose Admin Acetaminophen (Tylenol) 650 mg PRN Q6HRS PRN PO MILD PAIN / TEMP > 100.3'F 08/24/20 18:15 11/14/20 05:44 Multi-Ingredient Ointment (Analgesic [place]) 1 césar PRN QID PRN TP MUSCLE PAIN 08/24/20 18:15 Al Hydroxide/Mg Hydroxide (Mylanta Plus Xs) 15 ml PRN AFTMEALHC PRN PO DYSPEPSIA 08/24/20 18:15 Magnesium Hydroxide (Milk Of Magnesia) 2,400 mg PRN QHS PRN PO CONSTIPATION 08/24/20 18:15 11/10/20 16:58 Aspirin (Aspirin Chewable) 81 mg DAILY PO 08/25/20 09:00 12/06/20 08:36 Cetirizine HCl (ZyrTEC) 10 mg DAILY08 PO 08/25/20 08:00 12/06/20 08:36 Donepezil HCl (Aricept) 23 mg QHS PO 08/24/20 21:00 08/28/20 15:38 DC 08/27/20 20:34 Fluoxetine HCl (PROzac) 20 mg DAILY PO 08/25/20 09:00 12/06/20 08:36 Lorazepam (Ativan) 1 mg PRN Q4HRS PRN PO ANXIETY / AGITATION 08/24/20 18:45 09/04/20 16:12 DC 09/04/20 01:29 Atorvastatin Calcium (Lipitor) 40 mg QHS PO 08/24/20 21:00 12/06/20 20:00 Pantoprazole Sodium (Protonix) 40 mg DAILY08 PO 08/25/20 08:00 12/06/20 08:36 Multivitamins/ Calcium (Thera-M Plus) 1 tab DAILY PO 08/25/20 09:00 12/06/20 08:36 Mupirocin (Bactroban) 1 césar BID92 TP 08/25/20 09:00 09/03/20 12:35 DC 09/01/20 14:00 Fish Oil (Fish Oil) 1,000 mg DAILY PO 08/25/20 09:00 11/08/20 18:17 DC 11/07/20 08:19 Olanzapine (ZyPREXA ZYDIS) 2.5 mg PRN Q2HR PRN PO PSYCHOSIS 08/24/20 19:45 11/16/20 12:58 Sertraline HCl (Zoloft) 25 mg DAILY PO 08/26/20 09:00 08/28/20 21:00 DC 08/28/20 08:37 Sertraline HCl (Zoloft) 50 mg DAILY PO 08/29/20 09:00 09/06/20 18:40 DC 09/04/20 08:58 Tamsulosin HCl (Flomax) 0.4 mg QHS PO 08/28/20 21:00 12/06/20 20:00 Mupirocin (Bactroban) 1 césar PRN BID PRN TP RASH 09/03/20 12:45 Diphenhydramine HCl (Benadryl) 50 mg 1X ONCE PO 09/04/20 21:00 09/04/20 21:01 DC 09/04/20 21:21 Olanzapine (ZyPREXA ZYDIS) 5 mg 1X ONCE PO 09/27/20 18:30 09/27/20 18:31 DC 09/27/20 18:30 Divalproex Sodium (Depakote Sprinkles) 125 mg 0900,1700 PO 09/28/20 17:00 10/12/20 17:08 DC 10/12/20 08:18 Furosemide (Lasix) 80 mg 1X ONCE PO 09/30/20 15:30 09/30/20 15:31 DC 09/30/20 16:00 Furosemide (Lasix) 80 mg DAILY PO 10/01/20 09:00 11/08/20 18:17 DC 11/08/20 08:39 Potassium Chloride (Klor-Con) 20 meq DAILYWBKFT PO 10/01/20 08:00 12/06/20 08:36 Trazodone HCl (Desyrel) 50 mg PRN QHS PRN PO INSOMNIA 10/08/20 16:15 11/07/20 18:18 DC 10/09/20 20:15 Divalproex Sodium (Depakote Sprinkles) 125 mg 0900,1300,1700,2100 PO 10/12/20 17:50 10/21/20 17:01 DC 10/21/20 12:26 Divalproex Sodium (Depakote Sprinkles) 125 mg 1300,1700 PO 10/21/20 17:00 10/25/20 17:17 DC 10/25/20 15:29 Divalproex Sodium (Depakote Sprinkles) 250 mg 0900,2100 PO 10/21/20 21:00 10/25/20 17:17 DC 10/25/20 09:09 Divalproex Sodium (Depakote Sprinkles) 250 mg QID PO 10/25/20 17:15 12/06/20 20:00 Trazodone HCl (Desyrel) 50 mg HS PO 11/07/20 21:00 12/06/20 20:01 Furosemide (Lasix) 40 mg DAILY PO 11/09/20 09:00 12/06/20 08:37 Multi-Ingred Cream/Lotion/Oil/ Oint (Hydrocerin) 1 césar PRN Q1HR PRN TP DRY SKIN / SCALING 11/26/20 16:30 Trazodone HCl (Desyrel) 50 mg PRN QHS PRN PO INSOMNIA 12/03/20 22:30 I have reviewed the current psychotropics carefully including drug interactions. Risk benefit ratio favors no change other than as noted in my dictated progress note. Diagnosis: Problems: (1) Impulse control disorder, unspecified (2) Anxiety disorder, unspecified (3) Dementia, vascular, with depression (4) Dementia, vascular, with delusions (5) Dementia in Alzheimer's disease with depression (6) Dementia in Alzheimer's disease with delusions (7) Dementia of the Alzheimer's type with early onset with behavioral disturbance (8) Major neurocognitive disorder VERENA AGUSTIN MD Dec 06, 2020 22:28
[2020-12-07 05:34] VITALS: BP 104/53
--- NOTE | 2020-12-07 06:36 | PDOC ---
Exam Note: Fercho Note: This note is a late entry for 12/06/2020 covers elements not covered in my initial note. Subjective: The patient was seen face to face in the evening of 12/06/2020 with Spring ABREU, discussed and reviewed the chart. He slept 7-1/2 hours previous night. I met with him in his room. Review of Systems: Impaired ambulation in wheelchair. No CV, , pulmonary, eye, ENT system symptoms on review. Mental Status Exam: The patient oriented to himself and situation. He is pleasant, confused. Insight and judgment, recent and remote memory, attention and concentration, fund of knowledge is poor consistent with his diagnoses. Laboratory Data: Reviewed. Impression: Major neurocognitive disorder Alzheimer vascular with delusion, depression, behavioral disturbance. Anxiety disorder unspecified. Impulse control disorder unspecified. Plan: Continue current psychotropics from initial note. Assessment: Vital Signs/I&O: Vital Signs Date Time Temp Pulse Resp B/P (MAP) Pulse Ox O2 Delivery O2 Flow Rate FiO2 12/07/20 05:34 98.3 60 18 104/53 (70) 97 Room Air I & O 12/06/20 12/06/20 12/07/20 15:00 23:00 07:00 Intake Total 760 ml 360 ml Balance 760 ml 360 ml Labs: Laboratory Tests Test 12/06/20 13:12 White Blood Count 7.3 x10^3/uL (4.0-11.0) Red Blood Count 4.25 x10^6/uL (4.30-5.70) L Hemoglobin 12.5 g/dL (13.0-17.5) L Hematocrit 37.7 % (39.0-53.0) L Mean Corpuscular Volume 89 fL (79-100) Mean Corpuscular Hemoglobin 29 pg (25-35) Mean Corpuscular Hemoglobin Concent 33 g/dL (31-37) Red Cell Distribution Width 16.9 % (11.5-14.5) H Platelet Count 195 x10^3/uL (140-400) Neutrophils (%) (Auto) 72 % (31-73) Lymphocytes (%) (Auto) 14 % (24-48) L Monocytes (%) (Auto) 9 % (0-9) Eosinophils (%) (Auto) 4 % (0-3) H Basophils (%) (Auto) 1 % (0-3) Neutrophils # (Auto) 5.3 x10^3uL (1.8-7.7) Lymphocytes # (Auto) 1.0 x10^3/uL (1.0-4.8) Monocytes # (Auto) 0.7 x10^3/uL (0.0-1.1) Eosinophils # (Auto) 0.3 x10^3/uL (0.0-0.7) Basophils # (Auto) 0.1 x10^3/uL (0.0-0.2) Sodium Level 144 mmol/L (136-145) Potassium Level 3.9 mmol/L (3.5-5.1) Chloride Level 106 mmol/L (98-107) Carbon Dioxide Level 30 mmol/L (21-32) Anion Gap 8 (6-14) Blood Urea Nitrogen 34 mg/dL (8-26) H Creatinine 1.7 mg/dL (0.7-1.3) H Estimated GFR (Cockcroft-Gault) 39.7 BUN/Creatinine Ratio 20 (6-20) Glucose Level 120 mg/dL (70-99) H Calcium Level 8.1 mg/dL (8.5-10.1) L Total Bilirubin 0.7 mg/dL (0.2-1.0) Aspartate Amino Transferase (AST) 22 U/L (15-37) Alanine Aminotransferase (ALT) 25 U/L (16-63) Alkaline Phosphatase 53 U/L (46-116) Total Protein 6.4 g/dL (6.4-8.2) Albumin 3.3 g/dL (3.4-5.0) L Albumin/Globulin Ratio 1.1 (1.0-1.7) Current Medications: Meds: Laboratory Tests Test 12/06/20 13:12 White Blood Count 7.3 x10^3/uL Red Blood Count 4.25 x10^6/uL Hemoglobin 12.5 g/dL Hematocrit 37.7 % Mean Corpuscular Volume 89 fL Mean Corpuscular Hemoglobin 29 pg Mean Corpuscular Hemoglobin Concent 33 g/dL Red Cell Distribution Width 16.9 % Platelet Count 195 x10^3/uL Neutrophils (%) (Auto) 72 % Lymphocytes (%) (Auto) 14 % Monocytes (%) (Auto) 9 % Eosinophils (%) (Auto) 4 % Basophils (%) (Auto) 1 % Neutrophils # (Auto) 5.3 x10^3uL Lymphocytes # (Auto) 1.0 x10^3/uL Monocytes # (Auto) 0.7 x10^3/uL Eosinophils # (Auto) 0.3 x10^3/uL Basophils # (Auto) 0.1 x10^3/uL Sodium Level 144 mmol/L Potassium Level 3.9 mmol/L Chloride Level 106 mmol/L Carbon Dioxide Level 30 mmol/L Anion Gap 8 Blood Urea Nitrogen 34 mg/dL Creatinine 1.7 mg/dL Estimated GFR (Cockcroft-Gault) 39.7 BUN/Creatinine Ratio 20 Glucose Level 120 mg/dL Calcium Level 8.1 mg/dL Total Bilirubin 0.7 mg/dL Aspartate Amino Transf (AST/SGOT) 22 U/L Alanine Aminotransferase (ALT/SGPT) 25 U/L Alkaline Phosphatase 53 U/L Total Protein 6.4 g/dL Albumin 3.3 g/dL Albumin/Globulin Ratio 1.1 Current Medications Medications (Trade) Dose Ordered Sig/Ashvin Route PRN Reason Start Time Stop Time Status Last Admin Dose Admin Acetaminophen (Tylenol) 650 mg PRN Q6HRS PRN PO MILD PAIN / TEMP > 100.3'F 08/24/20 18:15 11/14/20 05:44 Multi-Ingredient Ointment (Analgesic [place]) 1 césar PRN QID PRN TP MUSCLE PAIN 08/24/20 18:15 Al Hydroxide/Mg Hydroxide (Mylanta Plus Xs) 15 ml PRN AFTMEALHC PRN PO DYSPEPSIA 08/24/20 18:15 Magnesium Hydroxide (Milk Of Magnesia) 2,400 mg PRN QHS PRN PO CONSTIPATION 08/24/20 18:15 11/10/20 16:58 Aspirin (Aspirin Chewable) 81 mg DAILY PO 08/25/20 09:00 12/06/20 08:36 Cetirizine HCl (ZyrTEC) 10 mg DAILY08 PO 08/25/20 08:00 12/06/20 08:36 Donepezil HCl (Aricept) 23 mg QHS PO 08/24/20 21:00 08/28/20 15:38 DC 08/27/20 20:34 Fluoxetine HCl (PROzac) 20 mg DAILY PO 08/25/20 09:00 12/06/20 08:36 Lorazepam (Ativan) 1 mg PRN Q4HRS PRN PO ANXIETY / AGITATION 08/24/20 18:45 09/04/20 16:12 DC 09/04/20 01:29 Atorvastatin Calcium (Lipitor) 40 mg QHS PO 08/24/20 21:00 12/06/20 20:00 Pantoprazole Sodium (Protonix) 40 mg DAILY08 PO 08/25/20 08:00 12/06/20 08:36 Multivitamins/ Calcium (Thera-M Plus) 1 tab DAILY PO 08/25/20 09:00 12/06/20 08:36 Mupirocin (Bactroban) 1 césar BID92 TP 08/25/20 09:00 09/03/20 12:35 DC 09/01/20 14:00 Fish Oil (Fish Oil) 1,000 mg DAILY PO 08/25/20 09:00 11/08/20 18:17 DC 11/07/20 08:19 Olanzapine (ZyPREXA ZYDIS) 2.5 mg PRN Q2HR PRN PO PSYCHOSIS 08/24/20 19:45 11/16/20 12:58 Sertraline HCl (Zoloft) 25 mg DAILY PO 08/26/20 09:00 08/28/20 21:00 DC 08/28/20 08:37 Sertraline HCl (Zoloft) 50 mg DAILY PO 08/29/20 09:00 09/06/20 18:40 DC 09/04/20 08:58 Tamsulosin HCl (Flomax) 0.4 mg QHS PO 08/28/20 21:00 12/06/20 20:00 Mupirocin (Bactroban) 1 césar PRN BID PRN TP RASH 09/03/20 12:45 Diphenhydramine HCl (Benadryl) 50 mg 1X ONCE PO 09/04/20 21:00 09/04/20 21:01 DC 09/04/20 21:21 Olanzapine (ZyPREXA ZYDIS) 5 mg 1X ONCE PO 09/27/20 18:30 09/27/20 18:31 DC 09/27/20 18:30 Divalproex Sodium (Depakote Sprinkles) 125 mg 0900,1700 PO 09/28/20 17:00 10/12/20 17:08 DC 10/12/20 08:18 Furosemide (Lasix) 80 mg 1X ONCE PO 09/30/20 15:30 09/30/20 15:31 DC 09/30/20 16:00 Furosemide (Lasix) 80 mg DAILY PO 10/01/20 09:00 11/08/20 18:17 DC 11/08/20 08:39 Potassium Chloride (Klor-Con) 20 meq DAILYWBKFT PO 10/01/20 08:00 12/06/20 08:36 Trazodone HCl (Desyrel) 50 mg PRN QHS PRN PO INSOMNIA 10/08/20 16:15 11/07/20 18:18 DC 10/09/20 20:15 Divalproex Sodium (Depakote Sprinkles) 125 mg 0900,1300,1700,2100 PO 10/12/20 17:50 10/21/20 17:01 DC 10/21/20 12:26 Divalproex Sodium (Depakote Sprinkles) 125 mg 1300,1700 PO 10/21/20 17:00 10/25/20 17:17 DC 10/25/20 15:29 Divalproex Sodium (Depakote Sprinkles) 250 mg 0900,2100 PO 10/21/20 21:00 10/25/20 17:17 DC 10/25/20 09:09 Divalproex Sodium (Depakote Sprinkles) 250 mg QID PO 10/25/20 17:15 12/06/20 20:00 Trazodone HCl (Desyrel) 50 mg HS PO 11/07/20 21:00 12/06/20 20:01 Furosemide (Lasix) 40 mg DAILY PO 11/09/20 09:00 12/06/20 08:37 Multi-Ingred Cream/Lotion/Oil/ Oint (Hydrocerin) 1 césar PRN Q1HR PRN TP DRY SKIN / SCALING 11/26/20 16:30 Trazodone HCl (Desyrel) 50 mg PRN QHS PRN PO INSOMNIA 12/03/20 22:30 I have reviewed the current psychotropics carefully including drug interactions. Risk benefit ratio favors no change other than as noted in my dictated progress note. Diagnosis: Problems: (1) Impulse control disorder, unspecified (2) Anxiety disorder, unspecified (3) Dementia, vascular, with depression (4) Dementia, vascular, with delusions (5) Dementia in Alzheimer's disease with depression (6) Dementia in Alzheimer's disease with delusions (7) Dementia of the Alzheimer's type with early onset with behavioral disturbance (8) Major neurocognitive disorder VERENA AGUSTIN MD Dec 07, 2020 06:36
[2020-12-07] MEDS: FUROSEMIDE 40 MG TABLET PO SCH (08:01)
[2020-12-07] MEDS: PANTOPRAZOLE 40 MG TABLET. PO SCH (08:01)
[2020-12-07] MEDS: POTASSIUM CHLORIDE 20 MEQ TABLET.ER. PO SCH (08:01)
[2020-12-07] MEDS: DIVALPROEX 125 MG CAP.SPRINK PO SCH ×4 (08:01→19:32)
[2020-12-07] MEDS: CETIRIZINE HCL 10 MG TABLET PO SCH (08:01)
[2020-12-07] MEDS: MULTIVITAMIN with MINERAL TABLET. PO SCH (08:01)
[2020-12-07] MEDS: ASPIRIN CHEWABLE 81 MG TABLET. PO SCH (08:01)
[2020-12-07 15:24] VITALS: BP 95/61
[2020-12-07] MEDS: TAMSULOSIN 0.4 MG CAP.ER.24H. PO SCH (19:32)
[2020-12-07] MEDS: traZODone 50 MG TABLET. PO SCH (19:32)
[2020-12-07] MEDS: ATORVASTATIN CALCIUM 20 MG TABLET PO SCH (19:33)
--- NOTE | 2020-12-07 22:01 | PDOC ---
Exam Note: Fercho Note: Please also refer to the separate dictated note~for this date of service dictated separately.~Patient seen individually. Discussed the patient with Nursing staff reviewed the chart.~Reviewed interim history and current functioning. Reviewed vital signs,~Labs/ Radiology~and current medications noted below. Continue current treatment with the changes noted in the dictated addendum note Assessment: Vital Signs/I&O: Vital Signs Date Time Temp Pulse Resp B/P (MAP) Pulse Ox O2 Delivery O2 Flow Rate FiO2 12/07/20 15:24 98.1 85 16 95/61 (72) 97 12/07/20 05:34 Room Air I & O 12/06/20 12/06/20 12/07/20 15:00 23:00 07:00 Intake Total 760 ml 360 ml Balance 760 ml 360 ml Current Medications: Meds: Current Medications Medications (Trade) Dose Ordered Sig/Ashvin Route PRN Reason Start Time Stop Time Status Last Admin Dose Admin Acetaminophen (Tylenol) 650 mg PRN Q6HRS PRN PO MILD PAIN / TEMP > 100.3'F 08/24/20 18:15 11/14/20 05:44 Multi-Ingredient Ointment (Analgesic [place]) 1 césar PRN QID PRN TP MUSCLE PAIN 08/24/20 18:15 Al Hydroxide/Mg Hydroxide (Mylanta Plus Xs) 15 ml PRN AFTMEALHC PRN PO DYSPEPSIA 08/24/20 18:15 Magnesium Hydroxide (Milk Of Magnesia) 2,400 mg PRN QHS PRN PO CONSTIPATION 08/24/20 18:15 11/10/20 16:58 Aspirin (Aspirin Chewable) 81 mg DAILY PO 08/25/20 09:00 12/07/20 08:01 Cetirizine HCl (ZyrTEC) 10 mg DAILY08 PO 08/25/20 08:00 12/07/20 08:01 Donepezil HCl (Aricept) 23 mg QHS PO 08/24/20 21:00 08/28/20 15:38 DC 08/27/20 20:34 Fluoxetine HCl (PROzac) 20 mg DAILY PO 08/25/20 09:00 12/07/20 08:01 Lorazepam (Ativan) 1 mg PRN Q4HRS PRN PO ANXIETY / AGITATION 08/24/20 18:45 09/04/20 16:12 DC 09/04/20 01:29 Atorvastatin Calcium (Lipitor) 40 mg QHS PO 08/24/20 21:00 12/07/20 19:33 Pantoprazole Sodium (Protonix) 40 mg DAILY08 PO 08/25/20 08:00 12/07/20 08:01 Multivitamins/ Calcium (Thera-M Plus) 1 tab DAILY PO 08/25/20 09:00 12/07/20 08:01 Mupirocin (Bactroban) 1 césar BID92 TP 08/25/20 09:00 09/03/20 12:35 DC 09/01/20 14:00 Fish Oil (Fish Oil) 1,000 mg DAILY PO 08/25/20 09:00 11/08/20 18:17 DC 11/07/20 08:19 Olanzapine (ZyPREXA ZYDIS) 2.5 mg PRN Q2HR PRN PO PSYCHOSIS 08/24/20 19:45 11/16/20 12:58 Sertraline HCl (Zoloft) 25 mg DAILY PO 08/26/20 09:00 08/28/20 21:00 DC 08/28/20 08:37 Sertraline HCl (Zoloft) 50 mg DAILY PO 08/29/20 09:00 09/06/20 18:40 DC 09/04/20 08:58 Tamsulosin HCl (Flomax) 0.4 mg QHS PO 08/28/20 21:00 12/07/20 19:32 Mupirocin (Bactroban) 1 césar PRN BID PRN TP RASH 09/03/20 12:45 Diphenhydramine HCl (Benadryl) 50 mg 1X ONCE PO 09/04/20 21:00 09/04/20 21:01 DC 09/04/20 21:21 Olanzapine (ZyPREXA ZYDIS) 5 mg 1X ONCE PO 09/27/20 18:30 09/27/20 18:31 DC 09/27/20 18:30 Divalproex Sodium (Depakote Sprinkles) 125 mg 0900,1700 PO 09/28/20 17:00 10/12/20 17:08 DC 10/12/20 08:18 Furosemide (Lasix) 80 mg 1X ONCE PO 09/30/20 15:30 09/30/20 15:31 DC 09/30/20 16:00 Furosemide (Lasix) 80 mg DAILY PO 10/01/20 09:00 11/08/20 18:17 DC 11/08/20 08:39 Potassium Chloride (Klor-Con) 20 meq DAILYWBKFT PO 10/01/20 08:00 12/07/20 08:01 Trazodone HCl (Desyrel) 50 mg PRN QHS PRN PO INSOMNIA 10/08/20 16:15 11/07/20 18:18 DC 10/09/20 20:15 Divalproex Sodium (Depakote Sprinkles) 125 mg 0900,1300,1700,2100 PO 10/12/20 17:50 10/21/20 17:01 DC 10/21/20 12:26 Divalproex Sodium (Depakote Sprinkles) 125 mg 1300,1700 PO 10/21/20 17:00 10/25/20 17:17 DC 10/25/20 15:29 Divalproex Sodium (Depakote Sprinkles) 250 mg 0900,2100 PO 10/21/20 21:00 10/25/20 17:17 DC 10/25/20 09:09 Divalproex Sodium (Depakote Sprinkles) 250 mg QID PO 10/25/20 17:15 12/07/20 19:32 Trazodone HCl (Desyrel) 50 mg HS PO 11/07/20 21:00 12/07/20 19:32 Furosemide (Lasix) 40 mg DAILY PO 11/09/20 09:00 12/07/20 08:01 Multi-Ingred Cream/Lotion/Oil/ Oint (Hydrocerin) 1 césar PRN Q1HR PRN TP DRY SKIN / SCALING 11/26/20 16:30 Trazodone HCl (Desyrel) 50 mg PRN QHS PRN PO INSOMNIA 12/03/20 22:30 I have reviewed the current psychotropics carefully including drug interactions. Risk benefit ratio favors no change other than as noted in my dictated progress note. Diagnosis: Problems: (1) Impulse control disorder, unspecified (2) Anxiety disorder, unspecified (3) Dementia, vascular, with depression (4) Dementia, vascular, with delusions (5) Dementia in Alzheimer's disease with depression (6) Dementia in Alzheimer's disease with delusions (7) Dementia of the Alzheimer's type with early onset with behavioral disturbance (8) Major neurocognitive disorder VERENA AGUSTIN MD Dec 07, 2020 22:01
[2020-12-08 05:15] VITALS: BP 114/76
[2020-12-08] MEDS: DIVALPROEX 125 MG CAP.SPRINK PO SCH ×4 (08:06→19:39)
[2020-12-08] MEDS: MULTIVITAMIN with MINERAL TABLET. PO SCH (08:06)
[2020-12-08] MEDS: CETIRIZINE HCL 10 MG TABLET PO SCH (08:06)
[2020-12-08] MEDS: ASPIRIN CHEWABLE 81 MG TABLET. PO SCH (08:07)
[2020-12-08] MEDS: PANTOPRAZOLE 40 MG TABLET. PO SCH (08:07)
[2020-12-08] MEDS: POTASSIUM CHLORIDE 20 MEQ TABLET.ER. PO SCH (08:07)
[2020-12-08] MEDS: FUROSEMIDE 40 MG TABLET PO SCH (08:14)
--- NOTE | 2020-12-08 11:00 | TX PLAN ---
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 Change Sleep, Confusion/Disoriented, Poor impulse control, Other Problem in Patient's Words: I cannot care for him at home. Additional Admission Comments: According to the intake, pt was anxious, wandering, restless, insomnia, posturing [facility] staff, struck which resulted in police response Problems Active Problems: wandering restless Inactive Problems: medication compliant Pt Strengths/Limitations Ability for [place]: Poor Cognitive Functioning/Ability: Fair Communication Skills/Ability: Fair Financial Resources: Poor Insight/Judgement: Poor Intellectual Ability: Poor Physical Health: Fair Social Skills: Fair Stability in Family: Fair Stability in School/Work: Poor Verbal Skills: Fair Discharge Criteria Discharge Criteria: No need for close observ., Adequate arrangements @DC, Improved behavior, Improved mood/thought Preliminary Discharge Plan Preliminary DC Plan: Placement Needed Special Precautions Fall Risk: Low Initial D/C Plan Pt is not able to discharge home, will need placement once stable. Identified Discharge Needs: Referral for higher level of care Currently Utilized Resources Currently Utilized Resources/P: Primary Care Physician Identified Problems/Hx/Goals Objectives/Short-Term Goals Short Term Goals: Dec. Aggression, Dec. Outbursts, Medication Stabilization, Monitor Med Effects Short Term Goals in Patient's: N/A Interventions/Frequency Staff Interventions/Frequency&: Psychiatrist to assess pt at least 3x per week for medication management. Social Work to assess pt at least 2x per week to identify barriers to care and finalize discharge planning. Nursing to assess medication effects, behavior modification, and completion of 15 minute checks daily. Encourage participation in group activities (if applicable) or 1:1 engagement based off Activity Dept goals. 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 He received a Bachelors in Sociology. Community Follow-up Primary Care Physician Referrals to higher level of care Community Provider/Family Inpu: Pt has become increasingly aggressive towards his , who is caring for pt. She is not able to care for pt at home any longer. 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 Pt continues to be calm, cooperative and medication compliant; no physical aggression noted for multiple days. Pt has attended a few groups this week with minimal participation. Pt was initially accepted to placement; however, due to pt vaccination status, that facility has since refused to admit pt. SW continues to follow up in finding placement and working with the family in finding placement RAVINDRA. WALESKA HARRELL Dec 08, 2020 11:00
[2020-12-08 16:01] VITALS: BP 148/64
[2020-12-08] MEDS: TAMSULOSIN 0.4 MG CAP.ER.24H. PO SCH (19:39)
[2020-12-08] MEDS: traZODone 50 MG TABLET. PO SCH (19:39)
[2020-12-08] MEDS: ATORVASTATIN CALCIUM 20 MG TABLET PO SCH (19:39)
--- NOTE | 2020-12-08 22:10 | PDOC ---
Exam Note: Fercho Note: Please also refer to the separate dictated note~for this date of service dictated separately.~Patient seen individually. Discussed the patient with Nursing staff reviewed the chart.~Reviewed interim history and current functioning. Reviewed vital signs,~Labs/ Radiology~and current medications noted below. Continue current treatment with the changes noted in the dictated addendum note Assessment: Vital Signs/I&O: Vital Signs Date Time Temp Pulse Resp B/P (MAP) Pulse Ox O2 Delivery O2 Flow Rate FiO2 12/08/20 16:01 97.0 75 20 148/64 (92) Room Air 12/08/20 05:15 100 I & O 12/07/20 12/07/20 12/08/20 15:00 23:00 07:00 Intake Total 1000 ml 490 ml Balance 1000 ml 490 ml Current Medications: Meds: Current Medications Medications (Trade) Dose Ordered Sig/Ashvin Route PRN Reason Start Time Stop Time Status Last Admin Dose Admin Acetaminophen (Tylenol) 650 mg PRN Q6HRS PRN PO MILD PAIN / TEMP > 100.3'F 08/24/20 18:15 11/14/20 05:44 Multi-Ingredient Ointment (Analgesic [place]) 1 cséar PRN QID PRN TP MUSCLE PAIN 08/24/20 18:15 Al Hydroxide/Mg Hydroxide (Mylanta Plus Xs) 15 ml PRN AFTMEALHC PRN PO DYSPEPSIA 08/24/20 18:15 Magnesium Hydroxide (Milk Of Magnesia) 2,400 mg PRN QHS PRN PO CONSTIPATION 08/24/20 18:15 11/10/20 16:58 Aspirin (Aspirin Chewable) 81 mg DAILY PO 08/25/20 09:00 12/08/20 08:07 Cetirizine HCl (ZyrTEC) 10 mg DAILY08 PO 08/25/20 08:00 12/08/20 08:06 Donepezil HCl (Aricept) 23 mg QHS PO 08/24/20 21:00 08/28/20 15:38 DC 08/27/20 20:34 Fluoxetine HCl (PROzac) 20 mg DAILY PO 08/25/20 09:00 12/08/20 08:07 Lorazepam (Ativan) 1 mg PRN Q4HRS PRN PO ANXIETY / AGITATION 08/24/20 18:45 09/04/20 16:12 DC 09/04/20 01:29 Atorvastatin Calcium (Lipitor) 40 mg QHS PO 08/24/20 21:00 12/08/20 19:39 Pantoprazole Sodium (Protonix) 40 mg DAILY08 PO 08/25/20 08:00 12/08/20 08:07 Multivitamins/ Calcium (Thera-M Plus) 1 tab DAILY PO 08/25/20 09:00 12/08/20 08:06 Mupirocin (Bactroban) 1 césar BID92 TP 08/25/20 09:00 09/03/20 12:35 DC 09/01/20 14:00 Fish Oil (Fish Oil) 1,000 mg DAILY PO 08/25/20 09:00 11/08/20 18:17 DC 11/07/20 08:19 Olanzapine (ZyPREXA ZYDIS) 2.5 mg PRN Q2HR PRN PO PSYCHOSIS 08/24/20 19:45 11/16/20 12:58 Sertraline HCl (Zoloft) 25 mg DAILY PO 08/26/20 09:00 08/28/20 21:00 DC 08/28/20 08:37 Sertraline HCl (Zoloft) 50 mg DAILY PO 08/29/20 09:00 09/06/20 18:40 DC 09/04/20 08:58 Tamsulosin HCl (Flomax) 0.4 mg QHS PO 08/28/20 21:00 12/08/20 19:39 Mupirocin (Bactroban) 1 césar PRN BID PRN TP RASH 09/03/20 12:45 Diphenhydramine HCl (Benadryl) 50 mg 1X ONCE PO 09/04/20 21:00 09/04/20 21:01 DC 09/04/20 21:21 Olanzapine (ZyPREXA ZYDIS) 5 mg 1X ONCE PO 09/27/20 18:30 09/27/20 18:31 DC 09/27/20 18:30 Divalproex Sodium (Depakote Sprinkles) 125 mg 0900,1700 PO 09/28/20 17:00 10/12/20 17:08 DC 10/12/20 08:18 Furosemide (Lasix) 80 mg 1X ONCE PO 09/30/20 15:30 09/30/20 15:31 DC 09/30/20 16:00 Furosemide (Lasix) 80 mg DAILY PO 10/01/20 09:00 11/08/20 18:17 DC 11/08/20 08:39 Potassium Chloride (Klor-Con) 20 meq DAILYWBKFT PO 10/01/20 08:00 12/08/20 08:07 Trazodone HCl (Desyrel) 50 mg PRN QHS PRN PO INSOMNIA 10/08/20 16:15 11/07/20 18:18 DC 10/09/20 20:15 Divalproex Sodium (Depakote Sprinkles) 125 mg 0900,1300,1700,2100 PO 10/12/20 17:50 10/21/20 17:01 DC 10/21/20 12:26 Divalproex Sodium (Depakote Sprinkles) 125 mg 1300,1700 PO 10/21/20 17:00 10/25/20 17:17 DC 10/25/20 15:29 Divalproex Sodium (Depakote Sprinkles) 250 mg 0900,2100 PO 10/21/20 21:00 10/25/20 17:17 DC 10/25/20 09:09 Divalproex Sodium (Depakote Sprinkles) 250 mg QID PO 10/25/20 17:15 12/08/20 19:39 Trazodone HCl (Desyrel) 50 mg HS PO 11/07/20 21:00 12/08/20 19:39 Furosemide (Lasix) 40 mg DAILY PO 11/09/20 09:00 12/08/20 08:14 Multi-Ingred Cream/Lotion/Oil/ Oint (Hydrocerin) 1 césar PRN Q1HR PRN TP DRY SKIN / SCALING 11/26/20 16:30 Trazodone HCl (Desyrel) 50 mg PRN QHS PRN PO INSOMNIA 12/03/20 22:30 I have reviewed the current psychotropics carefully including drug interactions. Risk benefit ratio favors no change other than as noted in my dictated progress note. Diagnosis: Problems: (1) Impulse control disorder, unspecified (2) Anxiety disorder, unspecified (3) Dementia, vascular, with depression (4) Dementia, vascular, with delusions (5) Dementia in Alzheimer's disease with depression (6) Dementia in Alzheimer's disease with delusions (7) Dementia of the Alzheimer's type with early onset with behavioral disturbance (8) Major neurocognitive disorder VERENA AGUSTIN MD Dec 08, 2020 22:10
[2020-12-09 06:01] VITALS: BP 115/56
--- NOTE | 2020-12-09 06:33 | PDOC ---
Exam Note: Fercho Note: This note is a late entry for 12/07/2020 covers elements not covered in my initial note. Subjective: The patient was seen face to face in the evening of 12/07/2020 with Spring ABREU, discussed and reviewed the chart. He slept 7-1/2 hours previous night. He remains confused, not agitated or aggressive. He walks up and down the hallways, pleasant, smiling as I met with him. Review of Systems: Impaired ambulation in wheelchair. No CV, , pulmonary, eye, ENT system symptoms on review. Mental Status Exam: The patient oriented to himself and situation. He is ple asant, confused. Insight and judgment, recent and remote memory, attention and concentration, fund of knowledge is poor consistent with his diagnoses. Laboratory Data: Reviewed. Impression: Major neurocognitive disorder Alzheimer vascular with delusion, depression, behavioral disturbance. Anxiety disorder unspecified. Impulse control disorder unspecified. Plan: Continue current psychotropics from initial note. Assessment: Vital Signs/I&O: Vital Signs Date Time Temp Pulse Resp B/P (MAP) Pulse Ox O2 Delivery O2 Flow Rate FiO2 12/09/20 06:01 97.0 66 18 115/56 (75) 97 12/08/20 16:01 Room Air I & O 12/08/20 12/08/20 12/09/20 15:00 23:00 07:00 Intake Total 350 ml 590 ml Balance 350 ml 590 ml Current Medications: Meds: Current Medications Medications (Trade) Dose Ordered Sig/Ashvin Route PRN Reason Start Time Stop Time Status Last Admin Dose Admin Acetaminophen (Tylenol) 650 mg PRN Q6HRS PRN PO MILD PAIN / TEMP > 100.3'F 08/24/20 18:15 11/14/20 05:44 Multi-Ingredient Ointment (Analgesic [place]) 1 césar PRN QID PRN TP MUSCLE PAIN 08/24/20 18:15 Al Hydroxide/Mg Hydroxide (Mylanta Plus Xs) 15 ml PRN AFTMEALHC PRN PO DYSPEPSIA 08/24/20 18:15 Magnesium Hydroxide (Milk Of Magnesia) 2,400 mg PRN QHS PRN PO CONSTIPATION 08/24/20 18:15 11/10/20 16:58 Aspirin (Aspirin Chewable) 81 mg DAILY PO 08/25/20 09:00 12/08/20 08:07 Cetirizine HCl (ZyrTEC) 10 mg DAILY08 PO 08/25/20 08:00 12/08/20 08:06 Donepezil HCl (Aricept) 23 mg QHS PO 08/24/20 21:00 08/28/20 15:38 DC 08/27/20 20:34 Fluoxetine HCl (PROzac) 20 mg DAILY PO 08/25/20 09:00 12/08/20 08:07 Lorazepam (Ativan) 1 mg PRN Q4HRS PRN PO ANXIETY / AGITATION 08/24/20 18:45 09/04/20 16:12 DC 09/04/20 01:29 Atorvastatin Calcium (Lipitor) 40 mg QHS PO 08/24/20 21:00 12/08/20 19:39 Pantoprazole Sodium (Protonix) 40 mg DAILY08 PO 08/25/20 08:00 12/08/20 08:07 Multivitamins/ Calcium (Thera-M Plus) 1 tab DAILY PO 08/25/20 09:00 12/08/20 08:06 Mupirocin (Bactroban) 1 césar BID92 TP 08/25/20 09:00 09/03/20 12:35 DC 09/01/20 14:00 Fish Oil (Fish Oil) 1,000 mg DAILY PO 08/25/20 09:00 11/08/20 18:17 DC 11/07/20 08:19 Olanzapine (ZyPREXA ZYDIS) 2.5 mg PRN Q2HR PRN PO PSYCHOSIS 08/24/20 19:45 11/16/20 12:58 Sertraline HCl (Zoloft) 25 mg DAILY PO 08/26/20 09:00 08/28/20 21:00 DC 08/28/20 08:37 Sertraline HCl (Zoloft) 50 mg DAILY PO 08/29/20 09:00 09/06/20 18:40 DC 09/04/20 08:58 Tamsulosin HCl (Flomax) 0.4 mg QHS PO 08/28/20 21:00 12/08/20 19:39 Mupirocin (Bactroban) 1 césar PRN BID PRN TP RASH 09/03/20 12:45 Diphenhydramine HCl (Benadryl) 50 mg 1X ONCE PO 09/04/20 21:00 09/04/20 21:01 DC 09/04/20 21:21 Olanzapine (ZyPREXA ZYDIS) 5 mg 1X ONCE PO 09/27/20 18:30 09/27/20 18:31 DC 09/27/20 18:30 Divalproex Sodium (Depakote Sprinkles) 125 mg 0900,1700 PO 09/28/20 17:00 10/12/20 17:08 DC 10/12/20 08:18 Furosemide (Lasix) 80 mg 1X ONCE PO 09/30/20 15:30 09/30/20 15:31 DC 09/30/20 16:00 Furosemide (Lasix) 80 mg DAILY PO 10/01/20 09:00 11/08/20 18:17 DC 11/08/20 08:39 Potassium Chloride (Klor-Con) 20 meq DAILYWBKFT PO 10/01/20 08:00 12/08/20 08:07 Trazodone HCl (Desyrel) 50 mg PRN QHS PRN PO INSOMNIA 10/08/20 16:15 11/07/20 18:18 DC 10/09/20 20:15 Divalproex Sodium (Depakote Sprinkles) 125 mg 0900,1300,1700,2100 PO 10/12/20 17:50 10/21/20 17:01 DC 10/21/20 12:26 Divalproex Sodium (Depakote Sprinkles) 125 mg 1300,1700 PO 10/21/20 17:00 10/25/20 17:17 DC 10/25/20 15:29 Divalproex Sodium (Depakote Sprinkles) 250 mg 0900,2100 PO 10/21/20 21:00 10/25/20 17:17 DC 10/25/20 09:09 Divalproex Sodium (Depakote Sprinkles) 250 mg QID PO 10/25/20 17:15 12/08/20 19:39 Trazodone HCl (Desyrel) 50 mg HS PO 11/07/20 21:00 12/08/20 19:39 Furosemide (Lasix) 40 mg DAILY PO 11/09/20 09:00 12/08/20 08:14 Multi-Ingred Cream/Lotion/Oil/ Oint (Hydrocerin) 1 césar PRN Q1HR PRN TP DRY SKIN / SCALING 11/26/20 16:30 Trazodone HCl (Desyrel) 50 mg PRN QHS PRN PO INSOMNIA 12/03/20 22:30 I have reviewed the current psychotropics carefully including drug interactions. Risk benefit ratio favors no change other than as noted in my dictated progress note. Diagnosis: Problems: (1) Impulse control disorder, unspecified (2) Anxiety disorder, unspecified (3) Dementia, vascular, with depression (4) Dementia, vascular, with delusions (5) Dementia in Alzheimer's disease with depression (6) Dementia in Alzheimer's disease with delusions (7) Dementia of the Alzheimer's type with early onset with behavioral disturbance (8) Major neurocognitive disorder VERENA AGUSTIN MD Dec 09, 2020 06:33
--- NOTE | 2020-12-09 06:54 | PDOC ---
Exam Note: Fercho Note: This note is a late entry for 12/08/2020 covers elements not covered in my initial note. Subjective: The patient was reviewed at treatment team meeting individually in the morning on 12/08/2020 with Niecy Naqvi, Ingris Serrano (social welfare administrator), Ingrid, activity therapy and Ivan ABREU, discussed and reviewed the chart. He slept 6-1/2 hours previous night. Appetite 95%. Sleeping average 7 hours. He has attended 2 groups in the past one week. He remains confused, possible transition to custodial on Saturday but they would want him vaccinated before then, which nursing staff will address. He remains confused as I met with him in the evening. He was eating out ice-cream out of a cup that he had already turned into liquid much of it was dropping over him and on the floor. Nursing staff did intervene. He was pleasant, smiling. Review of Systems: Impaired ambulation in wheelchair. No CV, , pulmonary, eye, ENT system symptoms on review. Mental Status Exam: The patient oriented to himself and situation. He is pleasant, confused. Insight and judgment, recent and remote memory, attention and concentration, fund of knowledge is poor consistent with his diagnoses. Laboratory Data: Reviewed. Impression: Major neurocognitive disorder Alzheimer vascular with delusion, depression, behavioral disturbance. Anxiety disorder unspecified. Impulse control disorder unspecified. Plan: Continue current psychotropics from initial note. Assessment: Vital Signs/I&O: Vital Signs Date Time Temp Pulse Resp B/P (MAP) Pulse Ox O2 Delivery O2 Flow Rate FiO2 12/09/20 06:01 97.0 66 18 115/56 (75) 97 12/08/20 16:01 Room Air I & O 12/08/20 12/08/20 12/09/20 15:00 23:00 07:00 Intake Total 350 ml 590 ml Balance 350 ml 590 ml Current Medications: Meds: Current Medications Medications (Trade) Dose Ordered Sig/[place] Route PRN Reason Start Time Stop Time Status Last Admin Dose Admin Acetaminophen (Tylenol) 650 mg PRN Q6HRS PRN PO MILD PAIN / TEMP > 100.3'F 08/24/20 18:15 11/14/20 05:44 Multi-Ingredient Ointment (Analgesic [place]) 1 césar PRN QID PRN TP MUSCLE PAIN 08/24/20 18:15 Al Hydroxide/Mg Hydroxide (Mylanta Plus Xs) 15 ml PRN AFTMEALHC PRN PO DYSPEPSIA 08/24/20 18:15 Magnesium Hydroxide (Milk Of Magnesia) 2,400 mg PRN QHS PRN PO CONSTIPATION 08/24/20 18:15 11/10/20 16:58 Aspirin (Aspirin Chewable) 81 mg DAILY PO 08/25/20 09:00 12/08/20 08:07 Cetirizine HCl (ZyrTEC) 10 mg DAILY08 PO 08/25/20 08:00 12/08/20 08:06 Donepezil HCl (Aricept) 23 mg QHS PO 08/24/20 21:00 08/28/20 15:38 DC 08/27/20 20:34 Fluoxetine HCl (PROzac) 20 mg DAILY PO 08/25/20 09:00 12/08/20 08:07 Lorazepam (Ativan) 1 mg PRN Q4HRS PRN PO ANXIETY / AGITATION 08/24/20 18:45 09/04/20 16:12 DC 09/04/20 01:29 Atorvastatin Calcium (Lipitor) 40 mg QHS PO 08/24/20 21:00 12/08/20 19:39 Pantoprazole Sodium (Protonix) 40 mg DAILY08 PO 08/25/20 08:00 12/08/20 08:07 Multivitamins/ Calcium (Thera-M Plus) 1 tab DAILY PO 08/25/20 09:00 12/08/20 08:06 Mupirocin (Bactroban) 1 césar BID92 TP 08/25/20 09:00 09/03/20 12:35 DC 09/01/20 14:00 Fish Oil (Fish Oil) 1,000 mg DAILY PO 08/25/20 09:00 11/08/20 18:17 DC 11/07/20 08:19 Olanzapine (ZyPREXA ZYDIS) 2.5 mg PRN Q2HR PRN PO PSYCHOSIS 08/24/20 19:45 11/16/20 12:58 Sertraline HCl (Zoloft) 25 mg DAILY PO 08/26/20 09:00 08/28/20 21:00 DC 08/28/20 08:37 Sertraline HCl (Zoloft) 50 mg DAILY PO 08/29/20 09:00 09/06/20 18:40 DC 09/04/20 08:58 Tamsulosin HCl (Flomax) 0.4 mg QHS PO 08/28/20 21:00 12/08/20 19:39 Mupirocin (Bactroban) 1 césar PRN BID PRN TP RASH 09/03/20 12:45 Diphenhydramine HCl (Benadryl) 50 mg 1X ONCE PO 09/04/20 21:00 09/04/20 21:01 DC 09/04/20 21:21 Olanzapine (ZyPREXA ZYDIS) 5 mg 1X ONCE PO 09/27/20 18:30 09/27/20 18:31 DC 09/27/20 18:30 Divalproex Sodium (Depakote Sprinkles) 125 mg 0900,1700 PO 09/28/20 17:00 10/12/20 17:08 DC 10/12/20 08:18 Furosemide (Lasix) 80 mg 1X ONCE PO 09/30/20 15:30 09/30/20 15:31 DC 09/30/20 16:00 Furosemide (Lasix) 80 mg DAILY PO 10/01/20 09:00 11/08/20 18:17 DC 11/08/20 08:39 Potassium Chloride (Klor-Con) 20 meq DAILYWBKFT PO 10/01/20 08:00 12/08/20 08:07 Trazodone HCl (Desyrel) 50 mg PRN QHS PRN PO INSOMNIA 10/08/20 16:15 11/07/20 18:18 DC 10/09/20 20:15 Divalproex Sodium (Depakote Sprinkles) 125 mg 0900,1300,1700,2100 PO 10/12/20 17:50 10/21/20 17:01 DC 10/21/20 12:26 Divalproex Sodium (Depakote Sprinkles) 125 mg 1300,1700 PO 10/21/20 17:00 10/25/20 17:17 DC 10/25/20 15:29 Divalproex Sodium (Depakote Sprinkles) 250 mg 0900,2100 PO 10/21/20 21:00 10/25/20 17:17 DC 10/25/20 09:09 Divalproex Sodium (Depakote Sprinkles) 250 mg QID PO 10/25/20 17:15 12/08/20 19:39 Trazodone HCl (Desyrel) 50 mg HS PO 11/07/20 21:00 12/08/20 19:39 Furosemide (Lasix) 40 mg DAILY PO 11/09/20 09:00 12/08/20 08:14 Multi-Ingred Cream/Lotion/Oil/ Oint (Hydrocerin) 1 césra PRN Q1HR PRN TP DRY SKIN / SCALING 11/26/20 16:30 Trazodone HCl (Desyrel) 50 mg PRN QHS PRN PO INSOMNIA 12/03/20 22:30 I have reviewed the current psychotropics carefully including drug interactions. Risk benefit ratio favors no change other than as noted in my dictated progress note. Diagnosis: Problems: (1) Impulse control disorder, unspecified (2) Anxiety disorder, unspecified (3) Dementia, vascular, with depression (4) Dementia, vascular, with delusions (5) Dementia in Alzheimer's disease with depression (6) Dementia in Alzheimer's disease with delusions (7) Dementia of the Alzheimer's type with early onset with behavioral disturbance (8) Major neurocognitive disorder VERENA AGUSTIN MD Dec 09, 2020 06:54
[2020-12-09] MEDS: CETIRIZINE HCL 10 MG TABLET PO SCH (07:38)
[2020-12-09] MEDS: PANTOPRAZOLE 40 MG TABLET. PO SCH (07:38)
[2020-12-09] MEDS: DIVALPROEX 125 MG CAP.SPRINK PO SCH ×4 (07:39→20:20)
[2020-12-09] MEDS: MULTIVITAMIN with MINERAL TABLET. PO SCH (07:39)
[2020-12-09] MEDS: ASPIRIN CHEWABLE 81 MG TABLET. PO SCH (07:39)
[2020-12-09] MEDS: FUROSEMIDE 40 MG TABLET PO SCH (07:39)
[2020-12-09] MEDS: POTASSIUM CHLORIDE 20 MEQ TABLET.ER. PO SCH (07:39)
[2020-12-09] MEDS ORDERED: ACET325T21 PO (12:04)
[2020-12-09] MEDS ORDERED: DIVA125C2 PO (12:05)
[2020-12-09] MEDS ORDERED: FURO40TA4 PO (12:06)
[2020-12-09] MEDS ORDERED: MAG-124 PO (12:06)
[2020-12-09] MEDS ORDERED: MAGN24003 PO (12:07)
[2020-12-09] MEDS ORDERED: METH57CR17 TP (12:08)
[2020-12-09] MEDS ORDERED: MINE30LO TP (12:11)
[2020-12-09] MEDS ORDERED: POTA20TA4 PO (12:12)
[2020-12-09] MEDS ORDERED: OLAN5TAB7 PO (12:12)
[2020-12-09] MEDS ORDERED: TAMS0.4C97 PO (12:13)
[2020-12-09] MEDS ORDERED: TRAZ-120 PO ×2 (12:14)
[2020-12-09 15:38] VITALS: BP 101/66
[2020-12-09] MEDS: ATORVASTATIN CALCIUM 20 MG TABLET PO SCH (20:19)
[2020-12-09] MEDS: TAMSULOSIN 0.4 MG CAP.ER.24H. PO SCH (20:19)
[2020-12-09] MEDS: traZODone 50 MG TABLET. PO SCH (20:20)
--- NOTE | 2020-12-09 21:57 | PDOC ---
Exam Note: Fercho Note: Please also refer to the separate dictated note~for this date of service dictated separately.~Patient seen individually. Discussed the patient with Nursing staff reviewed the chart.~Reviewed interim history and current functioning. Reviewed vital signs,~Labs/ Radiology~and current medications noted below. Continue current treatment with the changes noted in the dictated addendum note Assessment: Vital Signs/I&O: Vital Signs Date Time Temp Pulse Resp B/P (MAP) Pulse Ox O2 Delivery O2 Flow Rate FiO2 12/09/20 15:38 98.5 78 18 101/66 (78) 96 12/08/20 16:01 Room Air I & O 12/08/20 12/08/20 12/09/20 15:00 23:00 07:00 Intake Total 350 ml 590 ml Balance 350 ml 590 ml Current Medications: Meds: Current Medications Medications (Trade) Dose Ordered Sig/Ashvin Route PRN Reason Start Time Stop Time Status Last Admin Dose Admin Acetaminophen (Tylenol) 650 mg PRN Q6HRS PRN PO MILD PAIN / TEMP > 100.3'F 08/24/20 18:15 11/14/20 05:44 Multi-Ingredient Ointment (Analgesic [place]) 1 césar PRN QID PRN TP MUSCLE PAIN 08/24/20 18:15 Al Hydroxide/Mg Hydroxide (Mylanta Plus Xs) 15 ml PRN AFTMEALHC PRN PO DYSPEPSIA 08/24/20 18:15 Magnesium Hydroxide (Milk Of Magnesia) 2,400 mg PRN QHS PRN PO CONSTIPATION 08/24/20 18:15 11/10/20 16:58 Aspirin (Aspirin Chewable) 81 mg DAILY PO 08/25/20 09:00 12/09/20 07:39 Cetirizine HCl (ZyrTEC) 10 mg DAILY08 PO 08/25/20 08:00 12/09/20 07:38 Donepezil HCl (Aricept) 23 mg QHS PO 08/24/20 21:00 08/28/20 15:38 DC 08/27/20 20:34 Fluoxetine HCl (PROzac) 20 mg DAILY PO 08/25/20 09:00 12/09/20 07:39 Lorazepam (Ativan) 1 mg PRN Q4HRS PRN PO ANXIETY / AGITATION 08/24/20 18:45 09/04/20 16:12 DC 09/04/20 01:29 Atorvastatin Calcium (Lipitor) 40 mg QHS PO 08/24/20 21:00 12/09/20 20:19 Pantoprazole Sodium (Protonix) 40 mg DAILY08 PO 08/25/20 08:00 12/09/20 07:38 Multivitamins/ Calcium (Thera-M Plus) 1 tab DAILY PO 08/25/20 09:00 12/09/20 07:39 Mupirocin (Bactroban) 1 césar BID92 TP 08/25/20 09:00 09/03/20 12:35 DC 09/01/20 14:00 Fish Oil (Fish Oil) 1,000 mg DAILY PO 08/25/20 09:00 11/08/20 18:17 DC 11/07/20 08:19 Olanzapine (ZyPREXA ZYDIS) 2.5 mg PRN Q2HR PRN PO PSYCHOSIS 08/24/20 19:45 11/16/20 12:58 Sertraline HCl (Zoloft) 25 mg DAILY PO 08/26/20 09:00 08/28/20 21:00 DC 08/28/20 08:37 Sertraline HCl (Zoloft) 50 mg DAILY PO 08/29/20 09:00 09/06/20 18:40 DC 09/04/20 08:58 Tamsulosin HCl (Flomax) 0.4 mg QHS PO 08/28/20 21:00 12/09/20 20:19 Mupirocin (Bactroban) 1 césar PRN BID PRN TP RASH 09/03/20 12:45 Diphenhydramine HCl (Benadryl) 50 mg 1X ONCE PO 09/04/20 21:00 09/04/20 21:01 DC 09/04/20 21:21 Olanzapine (ZyPREXA ZYDIS) 5 mg 1X ONCE PO 09/27/20 18:30 09/27/20 18:31 DC 09/27/20 18:30 Divalproex Sodium (Depakote Sprinkles) 125 mg 0900,1700 PO 09/28/20 17:00 10/12/20 17:08 DC 10/12/20 08:18 Furosemide (Lasix) 80 mg 1X ONCE PO 09/30/20 15:30 09/30/20 15:31 DC 09/30/20 16:00 Furosemide (Lasix) 80 mg DAILY PO 10/01/20 09:00 11/08/20 18:17 DC 11/08/20 08:39 Potassium Chloride (Klor-Con) 20 meq DAILYWBKFT PO 10/01/20 08:00 12/09/20 07:39 Trazodone HCl (Desyrel) 50 mg PRN QHS PRN PO INSOMNIA 10/08/20 16:15 11/07/20 18:18 DC 10/09/20 20:15 Divalproex Sodium (Depakote Sprinkles) 125 mg 0900,1300,1700,2100 PO 10/12/20 17:50 10/21/20 17:01 DC 10/21/20 12:26 Divalproex Sodium (Depakote Sprinkles) 125 mg 1300,1700 PO 10/21/20 17:00 10/25/20 17:17 DC 10/25/20 15:29 Divalproex Sodium (Depakote Sprinkles) 250 mg 0900,2100 PO 10/21/20 21:00 10/25/20 17:17 DC 10/25/20 09:09 Divalproex Sodium (Depakote Sprinkles) 250 mg QID PO 10/25/20 17:15 12/09/20 20:20 Trazodone HCl (Desyrel) 50 mg HS PO 11/07/20 21:00 12/09/20 20:20 Furosemide (Lasix) 40 mg DAILY PO 11/09/20 09:00 12/09/20 07:39 Multi-Ingred Cream/Lotion/Oil/ Oint (Hydrocerin) 1 césar PRN Q1HR PRN TP DRY SKIN / SCALING 11/26/20 16:30 Trazodone HCl (Desyrel) 50 mg PRN QHS PRN PO INSOMNIA 12/03/20 22:30 I have reviewed the current psychotropics carefully including drug interactions. Risk benefit ratio favors no change other than as noted in my dictated progress note. Diagnosis: Problems: (1) Impulse control disorder, unspecified (2) Anxiety disorder, unspecified (3) Dementia, vascular, with depression (4) Dementia, vascular, with delusions (5) Dementia in Alzheimer's disease with depression (6) Dementia in Alzheimer's disease with delusions (7) Dementia of the Alzheimer's type with early onset with behavioral disturbance (8) Major neurocognitive disorder VERENA AGUSTIN MD Dec 09, 2020 21:57
[2020-12-10 05:23] VITALS: BP 130/73
[2020-12-10] MEDS: ASPIRIN CHEWABLE 81 MG TABLET. PO SCH (08:16)
[2020-12-10] MEDS: MULTIVITAMIN with MINERAL TABLET. PO SCH (08:16)
[2020-12-10] MEDS: POTASSIUM CHLORIDE 20 MEQ TABLET.ER. PO SCH (08:17)
[2020-12-10] MEDS: FUROSEMIDE 40 MG TABLET PO SCH (08:17)
[2020-12-10] MEDS: PANTOPRAZOLE 40 MG TABLET. PO SCH (08:17)
[2020-12-10] MEDS: DIVALPROEX 125 MG CAP.SPRINK PO SCH ×4 (08:17→20:28)
[2020-12-10] MEDS: CETIRIZINE HCL 10 MG TABLET PO SCH (08:17)
[2020-12-10 15:45] VITALS: BP 99/52
[2020-12-10] MEDS: TAMSULOSIN 0.4 MG CAP.ER.24H. PO SCH (20:28)
[2020-12-10] MEDS: traZODone 50 MG TABLET. PO SCH (20:28)
[2020-12-10] MEDS: ATORVASTATIN CALCIUM 20 MG TABLET PO SCH (20:29)
--- NOTE | 2020-12-10 21:54 | PDOC ---
Exam Note: Fercho Note: Please also refer to the separate dictated note~for this date of service dictated separately.~Patient seen individually. Discussed the patient with Nursing staff reviewed the chart.~Reviewed interim history and current functioning. Reviewed vital signs,~Labs/ Radiology~and current medications noted below. Continue current treatment with the changes noted in the dictated addendum note Assessment: Vital Signs/I&O: Vital Signs Date Time Temp Pulse Resp B/P (MAP) Pulse Ox O2 Delivery O2 Flow Rate FiO2 12/10/20 15:45 97.1 70 16 99/52 (68) 96 12/08/20 16:01 Room Air I & O 12/09/20 12/09/20 12/10/20 15:00 23:00 07:00 Intake Total 780 ml 120 ml Output Total 480 ml Balance 780 ml -360 ml Current Medications: Meds: Current Medications Medications (Trade) Dose Ordered Sig/Ashvin Route PRN Reason Start Time Stop Time Status Last Admin Dose Admin Acetaminophen (Tylenol) 650 mg PRN Q6HRS PRN PO MILD PAIN / TEMP > 100.3'F 08/24/20 18:15 11/14/20 05:44 Multi-Ingredient Ointment (Analgesic [place]) 1 césar PRN QID PRN TP MUSCLE PAIN 08/24/20 18:15 Al Hydroxide/Mg Hydroxide (Mylanta Plus Xs) 15 ml PRN AFTMEALHC PRN PO DYSPEPSIA 08/24/20 18:15 Magnesium Hydroxide (Milk Of Magnesia) 2,400 mg PRN QHS PRN PO CONSTIPATION 08/24/20 18:15 11/10/20 16:58 Aspirin (Aspirin Chewable) 81 mg DAILY PO 08/25/20 09:00 12/10/20 08:16 Cetirizine HCl (ZyrTEC) 10 mg DAILY08 PO 08/25/20 08:00 12/10/20 08:17 Donepezil HCl (Aricept) 23 mg QHS PO 08/24/20 21:00 08/28/20 15:38 DC 08/27/20 20:34 Fluoxetine HCl (PROzac) 20 mg DAILY PO 08/25/20 09:00 12/10/20 08:17 Lorazepam (Ativan) 1 mg PRN Q4HRS PRN PO ANXIETY / AGITATION 08/24/20 18:45 09/04/20 16:12 DC 09/04/20 01:29 Atorvastatin Calcium (Lipitor) 40 mg QHS PO 08/24/20 21:00 12/10/20 20:29 Pantoprazole Sodium (Protonix) 40 mg DAILY08 PO 08/25/20 08:00 12/10/20 08:17 Multivitamins/ Calcium (Thera-M Plus) 1 tab DAILY PO 08/25/20 09:00 12/10/20 08:16 Mupirocin (Bactroban) 1 césar BID92 TP 08/25/20 09:00 09/03/20 12:35 DC 09/01/20 14:00 Fish Oil (Fish Oil) 1,000 mg DAILY PO 08/25/20 09:00 11/08/20 18:17 DC 11/07/20 08:19 Olanzapine (ZyPREXA ZYDIS) 2.5 mg PRN Q2HR PRN PO PSYCHOSIS 08/24/20 19:45 11/16/20 12:58 Sertraline HCl (Zoloft) 25 mg DAILY PO 08/26/20 09:00 08/28/20 21:00 DC 08/28/20 08:37 Sertraline HCl (Zoloft) 50 mg DAILY PO 08/29/20 09:00 09/06/20 18:40 DC 09/04/20 08:58 Tamsulosin HCl (Flomax) 0.4 mg QHS PO 08/28/20 21:00 12/10/20 20:28 Mupirocin (Bactroban) 1 césar PRN BID PRN TP RASH 09/03/20 12:45 Diphenhydramine HCl (Benadryl) 50 mg 1X ONCE PO 09/04/20 21:00 09/04/20 21:01 DC 09/04/20 21:21 Olanzapine (ZyPREXA ZYDIS) 5 mg 1X ONCE PO 09/27/20 18:30 09/27/20 18:31 DC 09/27/20 18:30 Divalproex Sodium (Depakote Sprinkles) 125 mg 0900,1700 PO 09/28/20 17:00 10/12/20 17:08 DC 10/12/20 08:18 Furosemide (Lasix) 80 mg 1X ONCE PO 09/30/20 15:30 09/30/20 15:31 DC 09/30/20 16:00 Furosemide (Lasix) 80 mg DAILY PO 10/01/20 09:00 11/08/20 18:17 DC 11/08/20 08:39 Potassium Chloride (Klor-Con) 20 meq DAILYWBKFT PO 10/01/20 08:00 12/10/20 08:17 Trazodone HCl (Desyrel) 50 mg PRN QHS PRN PO INSOMNIA 10/08/20 16:15 11/07/20 18:18 DC 10/09/20 20:15 Divalproex Sodium (Depakote Sprinkles) 125 mg 0900,1300,1700,2100 PO 10/12/20 17:50 10/21/20 17:01 DC 10/21/20 12:26 Divalproex Sodium (Depakote Sprinkles) 125 mg 1300,1700 PO 10/21/20 17:00 10/25/20 17:17 DC 10/25/20 15:29 Divalproex Sodium (Depakote Sprinkles) 250 mg 0900,2100 PO 10/21/20 21:00 10/25/20 17:17 DC 10/25/20 09:09 Divalproex Sodium (Depakote Sprinkles) 250 mg QID PO 10/25/20 17:15 12/10/20 20:28 Trazodone HCl (Desyrel) 50 mg HS PO 11/07/20 21:00 12/10/20 20:28 Furosemide (Lasix) 40 mg DAILY PO 11/09/20 09:00 12/10/20 08:17 Multi-Ingred Cream/Lotion/Oil/ Oint (Hydrocerin) 1 césar PRN Q1HR PRN TP DRY SKIN / SCALING 11/26/20 16:30 Trazodone HCl (Desyrel) 50 mg PRN QHS PRN PO INSOMNIA 12/03/20 22:30 I have reviewed the current psychotropics carefully including drug interactions. Risk benefit ratio favors no change other than as noted in my dictated progress note. Diagnosis: Problems: (1) Impulse control disorder, unspecified (2) Anxiety disorder, unspecified (3) Dementia, vascular, with depression (4) Dementia, vascular, with delusions (5) Dementia in Alzheimer's disease with depression (6) Dementia in Alzheimer's disease with delusions (7) Dementia of the Alzheimer's type with early onset with behavioral disturbance (8) Major neurocognitive disorder VERENA AGUSTIN MD Dec 10, 2020 21:54
[2020-12-11 06:35] VITALS: BP 104/53
[2020-12-11] MEDS: PANTOPRAZOLE 40 MG TABLET. PO SCH (08:47)
[2020-12-11] MEDS: MULTIVITAMIN with MINERAL TABLET. PO SCH (08:47)
[2020-12-11] MEDS: DIVALPROEX 125 MG CAP.SPRINK PO SCH ×4 (08:47→19:43)
[2020-12-11] MEDS: FUROSEMIDE 40 MG TABLET PO SCH (08:47)
[2020-12-11] MEDS: ASPIRIN CHEWABLE 81 MG TABLET. PO SCH (08:48)
[2020-12-11] MEDS: POTASSIUM CHLORIDE 20 MEQ TABLET.ER. PO SCH (08:48)
[2020-12-11] MEDS: CETIRIZINE HCL 10 MG TABLET PO SCH (08:48)
[2020-12-11 11:08] LABS: BASO % 1 % (0-3); EOS # 0.4 x10^3/uL (0.0-0.7); EOS % 7 % (0-3); HEMATOCRIT 40.6 % (39.0-53.0); HEMOGLOBIN 13.3 g/dL (13.0-17.5); LYMPH # 1.1 x10^3/uL (1.0-4.8); LYMPH % 20 % (24-48); MEAN CORPUSCULAR HEMOGLOBIN 29 pg (25-35); MEAN CORPUSCULAR HGB CONC 33 g/dL (31-37); MEAN CORPUSCULAR VOLUME 90 fL (79-100); MONO # 0.4 x10^3/uL (0.0-1.1); MONO % 8 % (0-9); NEUT # 3.3 x10^3uL (1.8-7.7); NEUT % 64 % (31-73); PLATELET COUNT 198 x10^3/uL (140-400); RED BLOOD COUNT 4.53 x10^6/uL (4.30-5.70); RED CELL DISTRIBUTION WIDTH 17.3 % (11.5-14.5); WHITE BLOOD COUNT 5.2 x10^3/uL (4.0-11.0)
[2020-12-11 11:32] LABS: ALBUMIN 3.5 g/dL (3.4-5.0); CALCIUM 8.5 mg/dL (8.5-10.1); CREATININE 1.5 mg/dL (0.7-1.3); GFR 45.9; MAGNESIUM 2.5 mg/dL (1.8-2.4); POTASSIUM 4.2 mmol/L (3.5-5.1); TOTAL BILIRUBIN 0.7 mg/dL (0.2-1.0)
[2020-12-11 16:02] VITALS: BP 98/63
[2020-12-11] MEDS: TAMSULOSIN 0.4 MG CAP.ER.24H. PO SCH (19:43)
[2020-12-11] MEDS: ATORVASTATIN CALCIUM 20 MG TABLET PO SCH (19:43)
[2020-12-11] MEDS: traZODone 50 MG TABLET. PO SCH (19:43)
--- NOTE | 2020-12-11 23:01 | PDOC ---
Exam Note: Fercho Note: Please also refer to the separate dictated note~for this date of service dictated separately.~Patient seen individually. Discussed the patient with Nursing staff reviewed the chart.~Reviewed interim history and current functioning. Reviewed vital signs,~Labs/ Radiology~and current medications noted below. Continue current treatment with the changes noted in the dictated addendum note Assessment: Vital Signs/I&O: Vital Signs Date Time Temp Pulse Resp B/P (MAP) Pulse Ox O2 Delivery O2 Flow Rate FiO2 12/11/20 16:02 98.5 62 16 98/63 (75) 98 12/08/20 16:01 Room Air I & O 12/10/20 12/10/20 12/11/20 14:59 22:59 06:59 Intake Total 720 ml 480 ml Balance 720 ml 480 ml Labs: Laboratory Tests Test 12/11/20 10:40 White Blood Count 5.2 x10^3/uL (4.0-11.0) Red Blood Count 4.53 x10^6/uL (4.30-5.70) Hemoglobin 13.3 g/dL (13.0-17.5) Hematocrit 40.6 % (39.0-53.0) Mean Corpuscular Volume 90 fL (79-100) Mean Corpuscular Hemoglobin 29 pg (25-35) Mean Corpuscular Hemoglobin Concent 33 g/dL (31-37) Red Cell Distribution Width 17.3 % (11.5-14.5) H Platelet Count 198 x10^3/uL (140-400) Neutrophils (%) (Auto) 64 % (31-73) Lymphocytes (%) (Auto) 20 % (24-48) L Monocytes (%) (Auto) 8 % (0-9) Eosinophils (%) (Auto) 7 % (0-3) H Basophils (%) (Auto) 1 % (0-3) Neutrophils # (Auto) 3.3 x10^3uL (1.8-7.7) Lymphocytes # (Auto) 1.1 x10^3/uL (1.0-4.8) Monocytes # (Auto) 0.4 x10^3/uL (0.0-1.1) Eosinophils # (Auto) 0.4 x10^3/uL (0.0-0.7) Basophils # (Auto) 0.0 x10^3/uL (0.0-0.2) Sodium Level 141 mmol/L (136-145) Potassium Level 4.2 mmol/L (3.5-5.1) Chloride Level 104 mmol/L (98-107) Carbon Dioxide Level 30 mmol/L (21-32) Anion Gap 7 (6-14) Blood Urea Nitrogen 29 mg/dL (8-26) H Creatinine 1.5 mg/dL (0.7-1.3) H Estimated GFR (Cockcroft-Gault) 45.9 BUN/Creatinine Ratio 19 (6-20) Glucose Level 101 mg/dL (70-99) H Calcium Level 8.5 mg/dL (8.5-10.1) Magnesium Level 2.5 mg/dL (1.8-2.4) H Total Bilirubin 0.7 mg/dL (0.2-1.0) Aspartate Amino Transferase (AST) 21 U/L (15-37) Alanine Aminotransferase (ALT) 26 U/L (16-63) Alkaline Phosphatase 57 U/L (46-116) Total Protein 7.0 g/dL (6.4-8.2) Albumin 3.5 g/dL (3.4-5.0) Albumin/Globulin Ratio 1.0 (1.0-1.7) Current Medications: Meds: Laboratory Tests Test 12/11/20 10:40 White Blood Count 5.2 x10^3/uL Red Blood Count 4.53 x10^6/uL Hemoglobin 13.3 g/dL Hematocrit 40.6 % Mean Corpuscular Volume 90 fL Mean Corpuscular Hemoglobin 29 pg Mean Corpuscular Hemoglobin Concent 33 g/dL Red Cell Distribution Width 17.3 % Platelet Count 198 x10^3/uL Neutrophils (%) (Auto) 64 % Lymphocytes (%) (Auto) 20 % Monocytes (%) (Auto) 8 % Eosinophils (%) (Auto) 7 % Basophils (%) (Auto) 1 % Neutrophils # (Auto) 3.3 x10^3uL Lymphocytes # (Auto) 1.1 x10^3/uL Monocytes # (Auto) 0.4 x10^3/uL Eosinophils # (Auto) 0.4 x10^3/uL Basophils # (Auto) 0.0 x10^3/uL Sodium Level 141 mmol/L Potassium Level 4.2 mmol/L Chloride Level 104 mmol/L Carbon Dioxide Level 30 mmol/L Anion Gap 7 Blood Urea Nitrogen 29 mg/dL Creatinine 1.5 mg/dL Estimated GFR (Cockcroft-Gault) 45.9 BUN/Creatinine Ratio 19 Glucose Level 101 mg/dL Calcium Level 8.5 mg/dL Magnesium Level 2.5 mg/dL Total Bilirubin 0.7 mg/dL Aspartate Amino Transf (AST/SGOT) 21 U/L Alanine Aminotransferase (ALT/SGPT) 26 U/L Alkaline Phosphatase 57 U/L Total Protein 7.0 g/dL Albumin 3.5 g/dL Albumin/Globulin Ratio 1.0 Current Medications Medications (Trade) Dose Ordered Sig/Ashvin Route PRN Reason Start Time Stop Time Status Last Admin Dose Admin Acetaminophen (Tylenol) 650 mg PRN Q6HRS PRN PO MILD PAIN / TEMP > 100.3'F 08/24/20 18:15 11/14/20 05:44 Multi-Ingredient Ointment (Analgesic [place]) 1 césar PRN QID PRN TP MUSCLE PAIN 08/24/20 18:15 Al Hydroxide/Mg Hydroxide (Mylanta Plus Xs) 15 ml PRN AFTMEALHC PRN PO DYSPEPSIA 08/24/20 18:15 Magnesium Hydroxide (Milk Of Magnesia) 2,400 mg PRN QHS PRN PO CONSTIPATION 08/24/20 18:15 11/10/20 16:58 Aspirin (Aspirin Chewable) 81 mg DAILY PO 08/25/20 09:00 12/11/20 08:48 Cetirizine HCl (ZyrTEC) 10 mg DAILY08 PO 08/25/20 08:00 12/11/20 08:48 Donepezil HCl (Aricept) 23 mg QHS PO 08/24/20 21:00 08/28/20 15:38 DC 08/27/20 20:34 Fluoxetine HCl (PROzac) 20 mg DAILY PO 08/25/20 09:00 12/11/20 08:48 Lorazepam (Ativan) 1 mg PRN Q4HRS PRN PO ANXIETY / AGITATION 08/24/20 18:45 09/04/20 16:12 DC 09/04/20 01:29 Atorvastatin Calcium (Lipitor) 40 mg QHS PO 08/24/20 21:00 12/11/20 19:43 Pantoprazole Sodium (Protonix) 40 mg DAILY08 PO 08/25/20 08:00 12/11/20 08:47 Multivitamins/ Calcium (Thera-M Plus) 1 tab DAILY PO 08/25/20 09:00 12/11/20 08:47 Mupirocin (Bactroban) 1 césar BID92 TP 08/25/20 09:00 09/03/20 12:35 DC 09/01/20 14:00 Fish Oil (Fish Oil) 1,000 mg DAILY PO 08/25/20 09:00 11/08/20 18:17 DC 11/07/20 08:19 Olanzapine (ZyPREXA ZYDIS) 2.5 mg PRN Q2HR PRN PO PSYCHOSIS 08/24/20 19:45 11/16/20 12:58 Sertraline HCl (Zoloft) 25 mg DAILY PO 08/26/20 09:00 08/28/20 21:00 DC 08/28/20 08:37 Sertraline HCl (Zoloft) 50 mg DAILY PO 08/29/20 09:00 09/06/20 18:40 DC 09/04/20 08:58 Tamsulosin HCl (Flomax) 0.4 mg QHS PO 08/28/20 21:00 12/11/20 19:43 Mupirocin (Bactroban) 1 césar PRN BID PRN TP RASH 09/03/20 12:45 Diphenhydramine HCl (Benadryl) 50 mg 1X ONCE PO 09/04/20 21:00 09/04/20 21:01 DC 09/04/20 21:21 Olanzapine (ZyPREXA ZYDIS) 5 mg 1X ONCE PO 09/27/20 18:30 09/27/20 18:31 DC 09/27/20 18:30 Divalproex Sodium (Depakote Sprinkles) 125 mg 0900,1700 PO 09/28/20 17:00 10/12/20 17:08 DC 10/12/20 08:18 Furosemide (Lasix) 80 mg 1X ONCE PO 09/30/20 15:30 09/30/20 15:31 DC 09/30/20 16:00 Furosemide (Lasix) 80 mg DAILY PO 10/01/20 09:00 11/08/20 18:17 DC 11/08/20 08:39 Potassium Chloride (Klor-Con) 20 meq DAILYWBKFT PO 10/01/20 08:00 12/11/20 08:48 Trazodone HCl (Desyrel) 50 mg PRN QHS PRN PO INSOMNIA 10/08/20 16:15 11/07/20 18:18 DC 10/09/20 20:15 Divalproex Sodium (Depakote Sprinkles) 125 mg 0900,1300,1700,2100 PO 10/12/20 17:50 10/21/20 17:01 DC 10/21/20 12:26 Divalproex Sodium (Depakote Sprinkles) 125 mg 1300,1700 PO 10/21/20 17:00 10/25/20 17:17 DC 10/25/20 15:29 Divalproex Sodium (Depakote Sprinkles) 250 mg 0900,2100 PO 10/21/20 21:00 10/25/20 17:17 DC 10/25/20 09:09 Divalproex Sodium (Depakote Sprinkles) 250 mg QID PO 10/25/20 17:15 12/11/20 19:43 Trazodone HCl (Desyrel) 50 mg HS PO 11/07/20 21:00 12/11/20 19:43 Furosemide (Lasix) 40 mg DAILY PO 11/09/20 09:00 12/11/20 08:47 Multi-Ingred Cream/Lotion/Oil/ Oint (Hydrocerin) 1 césar PRN Q1HR PRN TP DRY SKIN / SCALING 11/26/20 16:30 Trazodone HCl (Desyrel) 50 mg PRN QHS PRN PO INSOMNIA 12/03/20 22:30 I have reviewed the current psychotropics carefully including drug interactions. Risk benefit ratio favors no change other than as noted in my dictated progress note. Diagnosis: Problems: (1) Impulse control disorder, unspecified (2) Anxiety disorder, unspecified (3) Dementia, vascular, with depression (4) Dementia, vascular, with delusions (5) Dementia in Alzheimer's disease with depression (6) Dementia in Alzheimer's disease with delusions (7) Dementia of the Alzheimer's type with early onset with behavioral disturbance (8) Major neurocognitive disorder VERENA AGUSTIN MD Dec 11, 2020 23:01
[2020-12-12 05:55] VITALS: BP 115/74
--- NOTE | 2020-12-12 06:28 | PDOC ---
Exam Note: Fercho Note: This note is a late entry for 12/09/2020 covers elements not covered in my initial note. Subjective: The patient was seen face to face in the evening of 12/09/2020 with Flower ABREU, discussed and reviewed the chart. He slept 7-1/4 hours previous night. He remains confused, but not agitated or aggressive. He was wandering outside his room, oblivious of his surroundings but with a pleasant smile as I met with him individually. Review of Systems: Impaired ambulation in wheelchair. No CV, , pulmonary, eye, ENT system symptoms on review. Mental Status Exam: The patient oriented to himself and situation. Insight and judgment, recent and remote memory, attention and concentration, fund of knowledge is poor consistent with his diagnoses. Laboratory Data: Reviewed. Impression: Major neurocognitive disorder Alzheimer vascular with delusion, depression, behavioral disturbance. Anxiety disorder unspecified. Impulse control disorder unspecified. Plan: Continue current psychotropics from initial note. Assessment: Vital Signs/I&O: Vital Signs Date Time Temp Pulse Resp B/P (MAP) Pulse Ox O2 Delivery O2 Flow Rate FiO2 12/12/20 05:55 97.3 75 16 115/74 (88) 96 12/08/20 16:01 Room Air I & O 12/11/20 12/11/20 12/12/20 14:59 22:59 06:59 Intake Total 480 ml 360 ml Balance 480 ml 360 ml Labs: Laboratory Tests Test 12/11/20 10:40 White Blood Count 5.2 x10^3/uL (4.0-11.0) Red Blood Count 4.53 x10^6/uL (4.30-5.70) Hemoglobin 13.3 g/dL (13.0-17.5) Hematocrit 40.6 % (39.0-53.0) Mean Corpuscular Volume 90 fL (79-100) Mean Corpuscular Hemoglobin 29 pg (25-35) Mean Corpuscular Hemoglobin Concent 33 g/dL (31-37) Red Cell Distribution Width 17.3 % (11.5-14.5) H Platelet Count 198 x10^3/uL (140-400) Neutrophils (%) (Auto) 64 % (31-73) Lymphocytes (%) (Auto) 20 % (24-48) L Monocytes (%) (Auto) 8 % (0-9) Eosinophils (%) (Auto) 7 % (0-3) H Basophils (%) (Auto) 1 % (0-3) Neutrophils # (Auto) 3.3 x10^3uL (1.8-7.7) Lymphocytes # (Auto) 1.1 x10^3/uL (1.0-4.8) Monocytes # (Auto) 0.4 x10^3/uL (0.0-1.1) Eosinophils # (Auto) 0.4 x10^3/uL (0.0-0.7) Basophils # (Auto) 0.0 x10^3/uL (0.0-0.2) Sodium Level 141 mmol/L (136-145) Potassium Level 4.2 mmol/L (3.5-5.1) Chloride Level 104 mmol/L (98-107) Carbon Dioxide Level 30 mmol/L (21-32) Anion Gap 7 (6-14) Blood Urea Nitrogen 29 mg/dL (8-26) H Creatinine 1.5 mg/dL (0.7-1.3) H Estimated GFR (Cockcroft-Gault) 45.9 BUN/Creatinine Ratio 19 (6-20) Glucose Level 101 mg/dL (70-99) H Calcium Level 8.5 mg/dL (8.5-10.1) Magnesium Level 2.5 mg/dL (1.8-2.4) H Total Bilirubin 0.7 mg/dL (0.2-1.0) Aspartate Amino Transferase (AST) 21 U/L (15-37) Alanine Aminotransferase (ALT) 26 U/L (16-63) Alkaline Phosphatase 57 U/L (46-116) Total Protein 7.0 g/dL (6.4-8.2) Albumin 3.5 g/dL (3.4-5.0) Albumin/Globulin Ratio 1.0 (1.0-1.7) Current Medications: Meds: Laboratory Tests Test 12/11/20 10:40 White Blood Count 5.2 x10^3/uL Red Blood Count 4.53 x10^6/uL Hemoglobin 13.3 g/dL Hematocrit 40.6 % Mean Corpuscular Volume 90 fL Mean Corpuscular Hemoglobin 29 pg Mean Corpuscular Hemoglobin Concent 33 g/dL Red Cell Distribution Width 17.3 % Platelet Count 198 x10^3/uL Neutrophils (%) (Auto) 64 % Lymphocytes (%) (Auto) 20 % Monocytes (%) (Auto) 8 % Eosinophils (%) (Auto) 7 % Basophils (%) (Auto) 1 % Neutrophils # (Auto) 3.3 x10^3uL Lymphocytes # (Auto) 1.1 x10^3/uL Monocytes # (Auto) 0.4 x10^3/uL Eosinophils # (Auto) 0.4 x10^3/uL Basophils # (Auto) 0.0 x10^3/uL Sodium Level 141 mmol/L Potassium Level 4.2 mmol/L Chloride Level 104 mmol/L Carbon Dioxide Level 30 mmol/L Anion Gap 7 Blood Urea Nitrogen 29 mg/dL Creatinine 1.5 mg/dL Estimated GFR (Cockcroft-Gault) 45.9 BUN/Creatinine Ratio 19 Glucose Level 101 mg/dL Calcium Level 8.5 mg/dL Magnesium Level 2.5 mg/dL Total Bilirubin 0.7 mg/dL Aspartate Amino Transf (AST/SGOT) 21 U/L Alanine Aminotransferase (ALT/SGPT) 26 U/L Alkaline Phosphatase 57 U/L Total Protein 7.0 g/dL Albumin 3.5 g/dL Albumin/Globulin Ratio 1.0 Current Medications Medications (Trade) Dose Ordered Sig/Ashvin Route PRN Reason Start Time Stop Time Status Last Admin Dose Admin Acetaminophen (Tylenol) 650 mg PRN Q6HRS PRN PO MILD PAIN / TEMP > 100.3'F 08/24/20 18:15 11/14/20 05:44 Multi-Ingredient Ointment (Analgesic [place]) 1 césar PRN QID PRN TP MUSCLE PAIN 08/24/20 18:15 Al Hydroxide/Mg Hydroxide (Mylanta Plus Xs) 15 ml PRN AFTMEALHC PRN PO DYSPEPSIA 08/24/20 18:15 Magnesium Hydroxide (Milk Of Magnesia) 2,400 mg PRN QHS PRN PO CONSTIPATION 08/24/20 18:15 11/10/20 16:58 Aspirin (Aspirin Chewable) 81 mg DAILY PO 08/25/20 09:00 12/11/20 08:48 Cetirizine HCl (ZyrTEC) 10 mg DAILY08 PO 08/25/20 08:00 12/11/20 08:48 Donepezil HCl (Aricept) 23 mg QHS PO 08/24/20 21:00 08/28/20 15:38 DC 08/27/20 20:34 Fluoxetine HCl (PROzac) 20 mg DAILY PO 08/25/20 09:00 12/11/20 08:48 Lorazepam (Ativan) 1 mg PRN Q4HRS PRN PO ANXIETY / AGITATION 08/24/20 18:45 09/04/20 16:12 DC 09/04/20 01:29 Atorvastatin Calcium (Lipitor) 40 mg QHS PO 08/24/20 21:00 12/11/20 19:43 Pantoprazole Sodium (Protonix) 40 mg DAILY08 PO 08/25/20 08:00 12/11/20 08:47 Multivitamins/ Calcium (Thera-M Plus) 1 tab DAILY PO 08/25/20 09:00 12/11/20 08:47 Mupirocin (Bactroban) 1 césar BID92 TP 08/25/20 09:00 09/03/20 12:35 DC 09/01/20 14:00 Fish Oil (Fish Oil) 1,000 mg DAILY PO 08/25/20 09:00 11/08/20 18:17 DC 11/07/20 08:19 Olanzapine (ZyPREXA ZYDIS) 2.5 mg PRN Q2HR PRN PO PSYCHOSIS 08/24/20 19:45 11/16/20 12:58 Sertraline HCl (Zoloft) 25 mg DAILY PO 08/26/20 09:00 08/28/20 21:00 DC 08/28/20 08:37 Sertraline HCl (Zoloft) 50 mg DAILY PO 08/29/20 09:00 09/06/20 18:40 DC 09/04/20 08:58 Tamsulosin HCl (Flomax) 0.4 mg QHS PO 08/28/20 21:00 12/11/20 19:43 Mupirocin (Bactroban) 1 césar PRN BID PRN TP RASH 09/03/20 12:45 Diphenhydramine HCl (Benadryl) 50 mg 1X ONCE PO 09/04/20 21:00 09/04/20 21:01 DC 09/04/20 21:21 Olanzapine (ZyPREXA ZYDIS) 5 mg 1X ONCE PO 09/27/20 18:30 09/27/20 18:31 DC 09/27/20 18:30 Divalproex Sodium (Depakote Sprinkles) 125 mg 0900,1700 PO 09/28/20 17:00 10/12/20 17:08 DC 10/12/20 08:18 Furosemide (Lasix) 80 mg 1X ONCE PO 09/30/20 15:30 09/30/20 15:31 DC 09/30/20 16:00 Furosemide (Lasix) 80 mg DAILY PO 10/01/20 09:00 11/08/20 18:17 DC 11/08/20 08:39 Potassium Chloride (Klor-Con) 20 meq DAILYWBKFT PO 10/01/20 08:00 12/11/20 08:48 Trazodone HCl (Desyrel) 50 mg PRN QHS PRN PO INSOMNIA 10/08/20 16:15 11/07/20 18:18 DC 10/09/20 20:15 Divalproex Sodium (Depakote Sprinkles) 125 mg 0900,1300,1700,2100 PO 10/12/20 17:50 10/21/20 17:01 DC 10/21/20 12:26 Divalproex Sodium (Depakote Sprinkles) 125 mg 1300,1700 PO 10/21/20 17:00 10/25/20 17:17 DC 10/25/20 15:29 Divalproex Sodium (Depakote Sprinkles) 250 mg 0900,2100 PO 10/21/20 21:00 10/25/20 17:17 DC 10/25/20 09:09 Divalproex Sodium (Depakote Sprinkles) 250 mg QID PO 10/25/20 17:15 12/11/20 19:43 Trazodone HCl (Desyrel) 50 mg HS PO 11/07/20 21:00 12/11/20 19:43 Furosemide (Lasix) 40 mg DAILY PO 11/09/20 09:00 12/11/20 08:47 Multi-Ingred Cream/Lotion/Oil/ Oint (Hydrocerin) 1 césar PRN Q1HR PRN TP DRY SKIN / SCALING 11/26/20 16:30 Trazodone HCl (Desyrel) 50 mg PRN QHS PRN PO INSOMNIA 12/03/20 22:30 I have reviewed the current psychotropics carefully including drug interactions. Risk benefit ratio favors no change other than as noted in my dictated progress note. Diagnosis: Problems: (1) Impulse control disorder, unspecified (2) Anxiety disorder, unspecified (3) Dementia, vascular, with depression (4) Dementia, vascular, with delusions (5) Dementia in Alzheimer's disease with depression (6) Dementia in Alzheimer's disease with delusions (7) Dementia of the Alzheimer's type with early onset with behavioral disturbance (8) Major neurocognitive disorder VERENA AGUSTIN MD Dec 12, 2020 06:28
--- NOTE | 2020-12-12 06:42 | PDOC ---
Exam Note: Fercho Note: This note is a late entry for 12/10/2020 covers elements not covered in my initial note. Subjective: The patient was seen face to face in the evening of 12/10/2020 with Estefanía ABREU, discussed and reviewed the chart. He slept 8 hours previous night. I met with him in his room. He was seated in the chair on the side of his room, confused but pleasant, smiling again, which is typical for him. Review of Systems: Impaired ambulation in wheelchair. No CV, , pulmonary, eye, ENT system symptoms on review. Mental Status Exam: The patient oriented to himself and situation. Insight and judgment, recent and remote memory, attention and concentration, fund of knowledge is poor consistent with his diagnoses. No clear psychotic symptoms. Laboratory Data: Reviewed. Impression: Major neurocognitive disorder Alzheimer vascular with delusion, depression, behavioral disturbance. Anxiety disorder unspecified. Impulse control disorder unspecified. Plan: Continue current psychotropics from initial note. Assessment: Vital Signs/I&O: Vital Signs Date Time Temp Pulse Resp B/P (MAP) Pulse Ox O2 Delivery O2 Flow Rate FiO2 12/12/20 05:55 97.3 75 16 115/74 (88) 96 12/08/20 16:01 Room Air I & O 12/11/20 12/11/20 12/12/20 15:00 23:00 07:00 Intake Total 480 ml 360 ml Balance 480 ml 360 ml Labs: Laboratory Tests Test 12/11/20 10:40 White Blood Count 5.2 x10^3/uL (4.0-11.0) Red Blood Count 4.53 x10^6/uL (4.30-5.70) Hemoglobin 13.3 g/dL (13.0-17.5) Hematocrit 40.6 % (39.0-53.0) Mean Corpuscular Volume 90 fL (79-100) Mean Corpuscular Hemoglobin 29 pg (25-35) Mean Corpuscular Hemoglobin Concent 33 g/dL (31-37) Red Cell Distribution Width 17.3 % (11.5-14.5) H Platelet Count 198 x10^3/uL (140-400) Neutrophils (%) (Auto) 64 % (31-73) Lymphocytes (%) (Auto) 20 % (24-48) L Monocytes (%) (Auto) 8 % (0-9) Eosinophils (%) (Auto) 7 % (0-3) H Basophils (%) (Auto) 1 % (0-3) Neutrophils # (Auto) 3.3 x10^3uL (1.8-7.7) Lymphocytes # (Auto) 1.1 x10^3/uL (1.0-4.8) Monocytes # (Auto) 0.4 x10^3/uL (0.0-1.1) Eosinophils # (Auto) 0.4 x10^3/uL (0.0-0.7) Basophils # (Auto) 0.0 x10^3/uL (0.0-0.2) Sodium Level 141 mmol/L (136-145) Potassium Level 4.2 mmol/L (3.5-5.1) Chloride Level 104 mmol/L (98-107) Carbon Dioxide Level 30 mmol/L (21-32) Anion Gap 7 (6-14) Blood Urea Nitrogen 29 mg/dL (8-26) H Creatinine 1.5 mg/dL (0.7-1.3) H Estimated GFR (Cockcroft-Gault) 45.9 BUN/Creatinine Ratio 19 (6-20) Glucose Level 101 mg/dL (70-99) H Calcium Level 8.5 mg/dL (8.5-10.1) Magnesium Level 2.5 mg/dL (1.8-2.4) H Total Bilirubin 0.7 mg/dL (0.2-1.0) Aspartate Amino Transferase (AST) 21 U/L (15-37) Alanine Aminotransferase (ALT) 26 U/L (16-63) Alkaline Phosphatase 57 U/L (46-116) Total Protein 7.0 g/dL (6.4-8.2) Albumin 3.5 g/dL (3.4-5.0) Albumin/Globulin Ratio 1.0 (1.0-1.7) Current Medications: Meds: Laboratory Tests Test 12/11/20 10:40 White Blood Count 5.2 x10^3/uL Red Blood Count 4.53 x10^6/uL Hemoglobin 13.3 g/dL Hematocrit 40.6 % Mean Corpuscular Volume 90 fL Mean Corpuscular Hemoglobin 29 pg Mean Corpuscular Hemoglobin Concent 33 g/dL Red Cell Distribution Width 17.3 % Platelet Count 198 x10^3/uL Neutrophils (%) (Auto) 64 % Lymphocytes (%) (Auto) 20 % Monocytes (%) (Auto) 8 % Eosinophils (%) (Auto) 7 % Basophils (%) (Auto) 1 % Neutrophils # (Auto) 3.3 x10^3uL Lymphocytes # (Auto) 1.1 x10^3/uL Monocytes # (Auto) 0.4 x10^3/uL Eosinophils # (Auto) 0.4 x10^3/uL Basophils # (Auto) 0.0 x10^3/uL Sodium Level 141 mmol/L Potassium Level 4.2 mmol/L Chloride Level 104 mmol/L Carbon Dioxide Level 30 mmol/L Anion Gap 7 Blood Urea Nitrogen 29 mg/dL Creatinine 1.5 mg/dL Estimated GFR (Cockcroft-Gault) 45.9 BUN/Creatinine Ratio 19 Glucose Level 101 mg/dL Calcium Level 8.5 mg/dL Magnesium Level 2.5 mg/dL Total Bilirubin 0.7 mg/dL Aspartate Amino Transf (AST/SGOT) 21 U/L Alanine Aminotransferase (ALT/SGPT) 26 U/L Alkaline Phosphatase 57 U/L Total Protein 7.0 g/dL Albumin 3.5 g/dL Albumin/Globulin Ratio 1.0 Current Medications Medications (Trade) Dose Ordered Sig/Ashvin Route PRN Reason Start Time Stop Time Status Last Admin Dose Admin Acetaminophen (Tylenol) 650 mg PRN Q6HRS PRN PO MILD PAIN / TEMP > 100.3'F 08/24/20 18:15 11/14/20 05:44 Multi-Ingredient Ointment (Analgesic [place]) 1 césar PRN QID PRN TP MUSCLE PAIN 08/24/20 18:15 Al Hydroxide/Mg Hydroxide (Mylanta Plus Xs) 15 ml PRN AFTMEALHC PRN PO DYSPEPSIA 08/24/20 18:15 Magnesium Hydroxide (Milk Of Magnesia) 2,400 mg PRN QHS PRN PO CONSTIPATION 08/24/20 18:15 11/10/20 16:58 Aspirin (Aspirin Chewable) 81 mg DAILY PO 08/25/20 09:00 12/11/20 08:48 Cetirizine HCl (ZyrTEC) 10 mg DAILY08 PO 08/25/20 08:00 12/11/20 08:48 Donepezil HCl (Aricept) 23 mg QHS PO 08/24/20 21:00 08/28/20 15:38 DC 08/27/20 20:34 Fluoxetine HCl (PROzac) 20 mg DAILY PO 08/25/20 09:00 12/11/20 08:48 Lorazepam (Ativan) 1 mg PRN Q4HRS PRN PO ANXIETY / AGITATION 08/24/20 18:45 09/04/20 16:12 DC 09/04/20 01:29 Atorvastatin Calcium (Lipitor) 40 mg QHS PO 08/24/20 21:00 12/11/20 19:43 Pantoprazole Sodium (Protonix) 40 mg DAILY08 PO 08/25/20 08:00 12/11/20 08:47 Multivitamins/ Calcium (Thera-M Plus) 1 tab DAILY PO 08/25/20 09:00 12/11/20 08:47 Mupirocin (Bactroban) 1 césar BID92 TP 08/25/20 09:00 09/03/20 12:35 DC 09/01/20 14:00 Fish Oil (Fish Oil) 1,000 mg DAILY PO 08/25/20 09:00 11/08/20 18:17 DC 11/07/20 08:19 Olanzapine (ZyPREXA ZYDIS) 2.5 mg PRN Q2HR PRN PO PSYCHOSIS 08/24/20 19:45 11/16/20 12:58 Sertraline HCl (Zoloft) 25 mg DAILY PO 08/26/20 09:00 08/28/20 21:00 DC 08/28/20 08:37 Sertraline HCl (Zoloft) 50 mg DAILY PO 08/29/20 09:00 09/06/20 18:40 DC 09/04/20 08:58 Tamsulosin HCl (Flomax) 0.4 mg QHS PO 08/28/20 21:00 12/11/20 19:43 Mupirocin (Bactroban) 1 césar PRN BID PRN TP RASH 09/03/20 12:45 Diphenhydramine HCl (Benadryl) 50 mg 1X ONCE PO 09/04/20 21:00 09/04/20 21:01 DC 09/04/20 21:21 Olanzapine (ZyPREXA ZYDIS) 5 mg 1X ONCE PO 09/27/20 18:30 09/27/20 18:31 DC 09/27/20 18:30 Divalproex Sodium (Depakote Sprinkles) 125 mg 0900,1700 PO 09/28/20 17:00 10/12/20 17:08 DC 10/12/20 08:18 Furosemide (Lasix) 80 mg 1X ONCE PO 09/30/20 15:30 09/30/20 15:31 DC 09/30/20 16:00 Furosemide (Lasix) 80 mg DAILY PO 10/01/20 09:00 11/08/20 18:17 DC 11/08/20 08:39 Potassium Chloride (Klor-Con) 20 meq DAILYWBKFT PO 10/01/20 08:00 12/11/20 08:48 Trazodone HCl (Desyrel) 50 mg PRN QHS PRN PO INSOMNIA 10/08/20 16:15 11/07/20 18:18 DC 10/09/20 20:15 Divalproex Sodium (Depakote Sprinkles) 125 mg 0900,1300,1700,2100 PO 10/12/20 17:50 10/21/20 17:01 DC 10/21/20 12:26 Divalproex Sodium (Depakote Sprinkles) 125 mg 1300,1700 PO 10/21/20 17:00 10/25/20 17:17 DC 10/25/20 15:29 Divalproex Sodium (Depakote Sprinkles) 250 mg 0900,2100 PO 10/21/20 21:00 10/25/20 17:17 DC 10/25/20 09:09 Divalproex Sodium (Depakote Sprinkles) 250 mg QID PO 10/25/20 17:15 12/11/20 19:43 Trazodone HCl (Desyrel) 50 mg HS PO 11/07/20 21:00 12/11/20 19:43 Furosemide (Lasix) 40 mg DAILY PO 11/09/20 09:00 12/11/20 08:47 Multi-Ingred Cream/Lotion/Oil/ Oint (Hydrocerin) 1 césar PRN Q1HR PRN TP DRY SKIN / SCALING 11/26/20 16:30 Trazodone HCl (Desyrel) 50 mg PRN QHS PRN PO INSOMNIA 12/03/20 22:30 I have reviewed the current psychotropics carefully including drug interactions. Risk benefit ratio favors no change other than as noted in my dictated progress note. Diagnosis: Problems: (1) Impulse control disorder, unspecified (2) Anxiety disorder, unspecified (3) Dementia, vascular, with depression (4) Dementia, vascular, with delusions (5) Dementia in Alzheimer's disease with depression (6) Dementia in Alzheimer's disease with delusions (7) Dementia of the Alzheimer's type with early onset with behavioral disturbance (8) Major neurocognitive disorder VERENA AGUSTIN MD Dec 12, 2020 06:42
--- NOTE | 2020-12-12 06:53 | PDOC ---
Exam Note: Fercho Note: This note is a late entry for 12/11/2020 covers elements not covered in my initial note. Subjective: The patient was seen face to face in the evening of 12/11/2020 with Gabriella ABREU, discussed and reviewed the chart. He slept 7-3/4 hours previous night. I met with him in his room. He was lying in bed, confused but otherwise pleasant. He continues to have a gentle smile about him. Review of Systems: Impaired ambulation in wheelchair. No CV, , pulmonary, eye, ENT system symptoms on review. Mental Status Exam: The patient oriented to himself and situation. Insight and judgment, recent and remote memory, attention and concentration, fund of knowledge is poor consistent with his diagnoses. Laboratory Data: Reviewed. Impression: Major neurocognitive disorder Alzheimer vascular with delusion, depression, behavioral disturbance. Anxiety disorder unspecified. Impulse control disorder unspecified. Plan: Continue current psychotropics from initial note. Assessment: Vital Signs/I&O: Vital Signs Date Time Temp Pulse Resp B/P (MAP) Pulse Ox O2 Delivery O2 Flow Rate FiO2 12/12/20 05:55 97.3 75 16 115/74 (88) 96 12/08/20 16:01 Room Air I & O 12/11/20 12/11/20 12/12/20 15:00 23:00 07:00 Intake Total 480 ml 360 ml Balance 480 ml 360 ml Labs: Laboratory Tests Test 12/11/20 10:40 White Blood Count 5.2 x10^3/uL (4.0-11.0) Red Blood Count 4.53 x10^6/uL (4.30-5.70) Hemoglobin 13.3 g/dL (13.0-17.5) Hematocrit 40.6 % (39.0-53.0) Mean Corpuscular Volume 90 fL (79-100) Mean Corpuscular Hemoglobin 29 pg (25-35) Mean Corpuscular Hemoglobin Concent 33 g/dL (31-37) Red Cell Distribution Width 17.3 % (11.5-14.5) H Platelet Count 198 x10^3/uL (140-400) Neutrophils (%) (Auto) 64 % (31-73) Lymphocytes (%) (Auto) 20 % (24-48) L Monocytes (%) (Auto) 8 % (0-9) Eosinophils (%) (Auto) 7 % (0-3) H Basophils (%) (Auto) 1 % (0-3) Neutrophils # (Auto) 3.3 x10^3uL (1.8-7.7) Lymphocytes # (Auto) 1.1 x10^3/uL (1.0-4.8) Monocytes # (Auto) 0.4 x10^3/uL (0.0-1.1) Eosinophils # (Auto) 0.4 x10^3/uL (0.0-0.7) Basophils # (Auto) 0.0 x10^3/uL (0.0-0.2) Sodium Level 141 mmol/L (136-145) Potassium Level 4.2 mmol/L (3.5-5.1) Chloride Level 104 mmol/L (98-107) Carbon Dioxide Level 30 mmol/L (21-32) Anion Gap 7 (6-14) Blood Urea Nitrogen 29 mg/dL (8-26) H Creatinine 1.5 mg/dL (0.7-1.3) H Estimated GFR (Cockcroft-Gault) 45.9 BUN/Creatinine Ratio 19 (6-20) Glucose Level 101 mg/dL (70-99) H Calcium Level 8.5 mg/dL (8.5-10.1) Magnesium Level 2.5 mg/dL (1.8-2.4) H Total Bilirubin 0.7 mg/dL (0.2-1.0) Aspartate Amino Transferase (AST) 21 U/L (15-37) Alanine Aminotransferase (ALT) 26 U/L (16-63) Alkaline Phosphatase 57 U/L (46-116) Total Protein 7.0 g/dL (6.4-8.2) Albumin 3.5 g/dL (3.4-5.0) Albumin/Globulin Ratio 1.0 (1.0-1.7) Current Medications: Meds: Laboratory Tests Test 12/11/20 10:40 White Blood Count 5.2 x10^3/uL Red Blood Count 4.53 x10^6/uL Hemoglobin 13.3 g/dL Hematocrit 40.6 % Mean Corpuscular Volume 90 fL Mean Corpuscular Hemoglobin 29 pg Mean Corpuscular Hemoglobin Concent 33 g/dL Red Cell Distribution Width 17.3 % Platelet Count 198 x10^3/uL Neutrophils (%) (Auto) 64 % Lymphocytes (%) (Auto) 20 % Monocytes (%) (Auto) 8 % Eosinophils (%) (Auto) 7 % Basophils (%) (Auto) 1 % Neutrophils # (Auto) 3.3 x10^3uL Lymphocytes # (Auto) 1.1 x10^3/uL Monocytes # (Auto) 0.4 x10^3/uL Eosinophils # (Auto) 0.4 x10^3/uL Basophils # (Auto) 0.0 x10^3/uL Sodium Level 141 mmol/L Potassium Level 4.2 mmol/L Chloride Level 104 mmol/L Carbon Dioxide Level 30 mmol/L Anion Gap 7 Blood Urea Nitrogen 29 mg/dL Creatinine 1.5 mg/dL Estimated GFR (Cockcroft-Gault) 45.9 BUN/Creatinine Ratio 19 Glucose Level 101 mg/dL Calcium Level 8.5 mg/dL Magnesium Level 2.5 mg/dL Total Bilirubin 0.7 mg/dL Aspartate Amino Transf (AST/SGOT) 21 U/L Alanine Aminotransferase (ALT/SGPT) 26 U/L Alkaline Phosphatase 57 U/L Total Protein 7.0 g/dL Albumin 3.5 g/dL Albumin/Globulin Ratio 1.0 Current Medications Medications (Trade) Dose Ordered Sig/Ashvin Route PRN Reason Start Time Stop Time Status Last Admin Dose Admin Acetaminophen (Tylenol) 650 mg PRN Q6HRS PRN PO MILD PAIN / TEMP > 100.3'F 08/24/20 18:15 11/14/20 05:44 Multi-Ingredient Ointment (Analgesic [place]) 1 césar PRN QID PRN TP MUSCLE PAIN 08/24/20 18:15 Al Hydroxide/Mg Hydroxide (Mylanta Plus Xs) 15 ml PRN AFTMEALHC PRN PO DYSPEPSIA 08/24/20 18:15 Magnesium Hydroxide (Milk Of Magnesia) 2,400 mg PRN QHS PRN PO CONSTIPATION 08/24/20 18:15 11/10/20 16:58 Aspirin (Aspirin Chewable) 81 mg DAILY PO 08/25/20 09:00 12/11/20 08:48 Cetirizine HCl (ZyrTEC) 10 mg DAILY08 PO 08/25/20 08:00 12/11/20 08:48 Donepezil HCl (Aricept) 23 mg QHS PO 08/24/20 21:00 08/28/20 15:38 DC 08/27/20 20:34 Fluoxetine HCl (PROzac) 20 mg DAILY PO 08/25/20 09:00 12/11/20 08:48 Lorazepam (Ativan) 1 mg PRN Q4HRS PRN PO ANXIETY / AGITATION 08/24/20 18:45 09/04/20 16:12 DC 09/04/20 01:29 Atorvastatin Calcium (Lipitor) 40 mg QHS PO 08/24/20 21:00 12/11/20 19:43 Pantoprazole Sodium (Protonix) 40 mg DAILY08 PO 08/25/20 08:00 12/11/20 08:47 Multivitamins/ Calcium (Thera-M Plus) 1 tab DAILY PO 08/25/20 09:00 12/11/20 08:47 Mupirocin (Bactroban) 1 césar BID92 TP 08/25/20 09:00 09/03/20 12:35 DC 09/01/20 14:00 Fish Oil (Fish Oil) 1,000 mg DAILY PO 08/25/20 09:00 11/08/20 18:17 DC 11/07/20 08:19 Olanzapine (ZyPREXA ZYDIS) 2.5 mg PRN Q2HR PRN PO PSYCHOSIS 08/24/20 19:45 11/16/20 12:58 Sertraline HCl (Zoloft) 25 mg DAILY PO 08/26/20 09:00 08/28/20 21:00 DC 08/28/20 08:37 Sertraline HCl (Zoloft) 50 mg DAILY PO 08/29/20 09:00 09/06/20 18:40 DC 09/04/20 08:58 Tamsulosin HCl (Flomax) 0.4 mg QHS PO 08/28/20 21:00 12/11/20 19:43 Mupirocin (Bactroban) 1 césar PRN BID PRN TP RASH 09/03/20 12:45 Diphenhydramine HCl (Benadryl) 50 mg 1X ONCE PO 09/04/20 21:00 09/04/20 21:01 DC 09/04/20 21:21 Olanzapine (ZyPREXA ZYDIS) 5 mg 1X ONCE PO 09/27/20 18:30 09/27/20 18:31 DC 09/27/20 18:30 Divalproex Sodium (Depakote Sprinkles) 125 mg 0900,1700 PO 09/28/20 17:00 10/12/20 17:08 DC 10/12/20 08:18 Furosemide (Lasix) 80 mg 1X ONCE PO 09/30/20 15:30 09/30/20 15:31 DC 09/30/20 16:00 Furosemide (Lasix) 80 mg DAILY PO 10/01/20 09:00 11/08/20 18:17 DC 11/08/20 08:39 Potassium Chloride (Klor-Con) 20 meq DAILYWBKFT PO 10/01/20 08:00 12/11/20 08:48 Trazodone HCl (Desyrel) 50 mg PRN QHS PRN PO INSOMNIA 10/08/20 16:15 11/07/20 18:18 DC 10/09/20 20:15 Divalproex Sodium (Depakote Sprinkles) 125 mg 0900,1300,1700,2100 PO 10/12/20 17:50 10/21/20 17:01 DC 10/21/20 12:26 Divalproex Sodium (Depakote Sprinkles) 125 mg 1300,1700 PO 10/21/20 17:00 10/25/20 17:17 DC 10/25/20 15:29 Divalproex Sodium (Depakote Sprinkles) 250 mg 0900,2100 PO 10/21/20 21:00 10/25/20 17:17 DC 10/25/20 09:09 Divalproex Sodium (Depakote Sprinkles) 250 mg QID PO 10/25/20 17:15 12/11/20 19:43 Trazodone HCl (Desyrel) 50 mg HS PO 11/07/20 21:00 12/11/20 19:43 Furosemide (Lasix) 40 mg DAILY PO 11/09/20 09:00 12/11/20 08:47 Multi-Ingred Cream/Lotion/Oil/ Oint (Hydrocerin) 1 césar PRN Q1HR PRN TP DRY SKIN / SCALING 11/26/20 16:30 Trazodone HCl (Desyrel) 50 mg PRN QHS PRN PO INSOMNIA 12/03/20 22:30 I have reviewed the current psychotropics carefully including drug interactions. Risk benefit ratio favors no change other than as noted in my dictated progress note. Diagnosis: Problems: (1) Impulse control disorder, unspecified (2) Anxiety disorder, unspecified (3) Dementia, vascular, with depression (4) Dementia, vascular, with delusions (5) Dementia in Alzheimer's disease with depression (6) Dementia in Alzheimer's disease with delusions (7) Dementia of the Alzheimer's type with early onset with behavioral disturbance (8) Major neurocognitive disorder VERENA AGUSTIN MD Dec 12, 2020 06:53
[2020-12-12] MEDS: DIVALPROEX 125 MG CAP.SPRINK PO SCH (08:10)
[2020-12-12] MEDS: POTASSIUM CHLORIDE 20 MEQ TABLET.ER. PO SCH (08:10)
[2020-12-12] MEDS: PANTOPRAZOLE 40 MG TABLET. PO SCH (08:10)
[2020-12-12] MEDS: MULTIVITAMIN with MINERAL TABLET. PO SCH (08:10)
[2020-12-12] MEDS: ASPIRIN CHEWABLE 81 MG TABLET. PO SCH (08:10)
[2020-12-12] MEDS: FUROSEMIDE 40 MG TABLET PO SCH (08:11)
[2020-12-12] MEDS: CETIRIZINE HCL 10 MG TABLET PO SCH (08:11)
--- NOTE | 2020-12-12 22:56 | PDOC ---
Exam Note: Fercho Note: Please also refer to the separate dictated note~for this date of service dictated separately.~Patient seen individually. Discussed the patient with Nursing staff reviewed the chart.~Reviewed interim history and current functioning. Reviewed vital signs,~Labs/ Radiology~and current medications noted below. Continue current treatment with the changes noted in the dictated addendum note Assessment: Vital Signs/I&O: Vital Signs Date Time Temp Pulse Resp B/P (MAP) Pulse Ox O2 Delivery O2 Flow Rate FiO2 12/12/20 05:55 97.3 75 16 115/74 (88) 96 12/08/20 16:01 Room Air I & O 12/11/20 12/11/20 12/12/20 15:00 23:00 07:00 Intake Total 480 ml 360 ml Balance 480 ml 360 ml Current Medications: Meds: Current Medications Medications (Trade) Dose Ordered Sig/Ashvin Route PRN Reason Start Time Stop Time Status Last Admin Dose Admin Acetaminophen (Tylenol) 650 mg PRN Q6HRS PRN PO MILD PAIN / TEMP > 100.3'F 08/24/20 18:15 12/12/20 15:41 DC 11/14/20 05:44 Multi-Ingredient Ointment (Analgesic [place]) 1 césar PRN QID PRN TP MUSCLE PAIN 08/24/20 18:15 12/12/20 15:41 DC Al Hydroxide/Mg Hydroxide (Mylanta Plus Xs) 15 ml PRN AFTMEALHC PRN PO DYSPEPSIA 08/24/20 18:15 12/12/20 15:41 DC Magnesium Hydroxide (Milk Of Magnesia) 2,400 mg PRN QHS PRN PO CONSTIPATION 08/24/20 18:15 12/12/20 15:41 DC 11/10/20 16:58 Aspirin (Aspirin Chewable) 81 mg DAILY PO 08/25/20 09:00 12/12/20 15:41 DC 12/12/20 08:10 Cetirizine HCl (ZyrTEC) 10 mg DAILY08 PO 08/25/20 08:00 12/12/20 15:41 DC 12/12/20 08:11 Donepezil HCl (Aricept) 23 mg QHS PO 08/24/20 21:00 08/28/20 15:38 DC 08/27/20 20:34 Fluoxetine HCl (PROzac) 20 mg DAILY PO 08/25/20 09:00 12/12/20 15:41 DC 12/12/20 08:10 Lorazepam (Ativan) 1 mg PRN Q4HRS PRN PO ANXIETY / AGITATION 08/24/20 18:45 09/04/20 16:12 DC 09/04/20 01:29 Atorvastatin Calcium (Lipitor) 40 mg QHS PO 08/24/20 21:00 12/12/20 15:41 DC 12/11/20 19:43 Pantoprazole Sodium (Protonix) 40 mg DAILY08 PO 08/25/20 08:00 12/12/20 15:41 DC 12/12/20 08:10 Multivitamins/ Calcium (Thera-M Plus) 1 tab DAILY PO 08/25/20 09:00 12/12/20 15:41 DC 12/12/20 08:10 Mupirocin (Bactroban) 1 césar BID92 TP 08/25/20 09:00 09/03/20 12:35 DC 09/01/20 14:00 Fish Oil (Fish Oil) 1,000 mg DAILY PO 08/25/20 09:00 11/08/20 18:17 DC 11/07/20 08:19 Olanzapine (ZyPREXA ZYDIS) 2.5 mg PRN Q2HR PRN PO PSYCHOSIS 08/24/20 19:45 12/12/20 15:41 DC 11/16/20 12:58 Sertraline HCl (Zoloft) 25 mg DAILY PO 08/26/20 09:00 08/28/20 21:00 DC 08/28/20 08:37 Sertraline HCl (Zoloft) 50 mg DAILY PO 08/29/20 09:00 09/06/20 18:40 DC 09/04/20 08:58 Tamsulosin HCl (Flomax) 0.4 mg QHS PO 08/28/20 21:00 12/12/20 15:41 DC 12/11/20 19:43 Mupirocin (Bactroban) 1 césar PRN BID PRN TP RASH 09/03/20 12:45 12/12/20 15:41 DC Diphenhydramine HCl (Benadryl) 50 mg 1X ONCE PO 09/04/20 21:00 09/04/20 21:01 DC 09/04/20 21:21 Olanzapine (ZyPREXA ZYDIS) 5 mg 1X ONCE PO 09/27/20 18:30 09/27/20 18:31 DC 09/27/20 18:30 Divalproex Sodium (Depakote Sprinkles) 125 mg 0900,1700 PO 09/28/20 17:00 10/12/20 17:08 DC 10/12/20 08:18 Furosemide (Lasix) 80 mg 1X ONCE PO 09/30/20 15:30 09/30/20 15:31 DC 09/30/20 16:00 Furosemide (Lasix) 80 mg DAILY PO 10/01/20 09:00 11/08/20 18:17 DC 11/08/20 08:39 Potassium Chloride (Klor-Con) 20 meq DAILYWBKFT PO 10/01/20 08:00 12/12/20 15:41 DC 12/12/20 08:10 Trazodone HCl (Desyrel) 50 mg PRN QHS PRN PO INSOMNIA 10/08/20 16:15 11/07/20 18:18 DC 10/09/20 20:15 Divalproex Sodium (Depakote Sprinkles) 125 mg 0900,1300,1700,2100 PO 10/12/20 17:50 10/21/20 17:01 DC 10/21/20 12:26 Divalproex Sodium (Depakote Sprinkles) 125 mg 1300,1700 PO 10/21/20 17:00 10/25/20 17:17 DC 10/25/20 15:29 Divalproex Sodium (Depakote Sprinkles) 250 mg 0900,2100 PO 10/21/20 21:00 10/25/20 17:17 DC 10/25/20 09:09 Divalproex Sodium (Depakote Sprinkles) 250 mg QID PO 10/25/20 17:15 12/12/20 15:41 DC 12/12/20 08:10 Trazodone HCl (Desyrel) 50 mg HS PO 11/07/20 21:00 12/12/20 15:41 DC 12/11/20 19:43 Furosemide (Lasix) 40 mg DAILY PO 11/09/20 09:00 12/12/20 15:41 DC 12/12/20 08:11 Multi-Ingred Cream/Lotion/Oil/ Oint (Hydrocerin) 1 césar PRN Q1HR PRN TP DRY SKIN / SCALING 11/26/20 16:30 12/12/20 15:41 DC Trazodone HCl (Desyrel) 50 mg PRN QHS PRN PO INSOMNIA 12/03/20 22:30 12/12/20 15:41 DC I have reviewed the current psychotropics carefully including drug interactions. Risk benefit ratio favors no change other than as noted in my dictated progress note. Diagnosis: Problems: (1) Impulse control disorder, unspecified (2) Anxiety disorder, unspecified (3) Dementia, vascular, with depression (4) Dementia, vascular, with delusions (5) Dementia in Alzheimer's disease with depression (6) Dementia in Alzheimer's disease with delusions (7) Dementia of the Alzheimer's type with early onset with behavioral disturbance (8) Major neurocognitive disorder VERENA AGUSTIN MD Dec 12, 2020 22:56
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
== END 2020-12-12 14:30 | DRG 57 ==
LOC: GEROPSY 16:35
PROVIDERS: ADMIT Psychiatry & Neurology Psychiatry; ATTEND Psychiatry & Neurology Psychiatry
DX: G30.9 Alzheimer's disease, unspecified (principal); F01.51 Vascular dementia, unspecified severity, with behavioral disturbance; F02.81 Dementia in other diseases classified elsewhere, unspecified severity, with behavioral disturbance; F41.9 Anxiety disorder, unspecified; F32.9 Major depressive disorder, single episode, unspecified; E78.5 Hyperlipidemia, unspecified; F63.9 Impulse disorder, unspecified; G47.00 Insomnia, unspecified; Z20.822 Contact with and (suspected) exposure to COVID-19; G89.29 Other chronic pain; K21.9 Gastro-esophageal reflux disease without esophagitis; M54.5 Low back pain; Z79.899 Other long term (current) drug therapy; Z85.46 Personal history of malignant neoplasm of prostate
CPT/HCPCS: 36415; 70450; 80048; 80053; 80061; 80164; 81001; 82140; 82306; 82607; 83036; 83540; 83550; 83735; 84436; 84480; 85025; 85379; 86592; 87426; 87493; 93005; Q0163; U0003; U0005; 97535